=== PATIENT | male | born 1940 | race Caucasian/White ===

== ENCOUNTER → 2017-03-07 | Outpatient (CLI) | payer OTHER, MEDICARE ==
[~2017-03-07] MED LIST: ASPEC81 PO; ATOR10TA82 PO; CLL250 PO; METO25TA3 PO; MULT-506 PO; OMEG10007 PO; SERT-234 PO; SULF800T23 PO; TACR1CAP PO; TELM40TA11 PO
[2017-03-07 13:26] LABS: BASO % 0.4 %; BASO ABS # 0.03 K/uL (0-0.2); EOS % 1.9 %; EOS ABS # 0.15 K/uL (0-0.5); HEMATOCRIT 46.1 % (42-52); HEMOGLOBIN 16.1 g/dL (14.0-18.0); IG# 0.02 K/uL (0.00-0.02); LYMPH ABS # 1.55 K/uL (1.2-3.4); MEAN CELL VOLUME 89.7 fL (80-100); MEAN CORPUSCULAR HEMOGLOBIN 31.3 pg (25-34); MEAN CORPUSCULAR HGB CONC 34.9 g/dl (32-36); MEAN PLATELET VOLUME 8.9 fL (7.4-10.4); MONO % 7.6 %; MONO ABS # 0.59 K/uL (0.11-0.59); NEUT % 69.8 %; NEUT ABS # 5.42 K/uL (1.4-6.5); PLATELET COUNT 163 K/uL (130-400); RED CELL DISTRIBUTION WIDTH CV 12.3 % (11.5-14.5); RED CELL DISTRIBUTION WIDTH SD 40.1 fL (36.4-46.3); WHITE BLOOD COUNT 7.76 K/uL (4.8-10.8)
[2017-03-07 13:34] LABS: HEMOGLOBIN A1C 5.7 % (4.5-5.6)
[2017-03-07 16:28] LABS: ALT/SGPT 20 U/L (12-78); AST/SGOT 14 U/L (15-37); BLOOD UREA NITROGEN 25 mg/dl (7-18); CALCIUM 9.1 mg/dl (8.5-10.1); CARBON DIOXIDE 30 mmol/L (21-32); CREATININE 1.28 mg/dl (0.60-1.40); GLUCOSE 119 mg/dl (70-99); POTASSIUM 3.8 mmol/L (3.5-5.1); SODIUM 137 mmol/L (136-145); URIC ACID 6.9 mg/dl (2.6-7.2)
[2017-03-07 16:39] LABS: CHOLESTEROL 107 mg/dl (0-200); LDL CHOLESTEROL CALCULATED 56 mg/dl
== END | disposition home or self-care (01) ==
LOC: C.LAB1850 11:45
PROVIDERS: ATTEND Internal Medicine
DX: E78.00 Pure hypercholesterolemia, unspecified (principal)

== ENCOUNTER → 2017-06-12 | Outpatient (CLI) | payer OTHER, MEDICARE ==
[2017-06-12 12:22] LABS: BASO % 0.5 %; BASO ABS # 0.03 K/uL (0-0.2); EOS % 2.7 %; EOS ABS # 0.17 K/uL (0-0.5); HEMOGLOBIN 16.5 g/dL (14.0-18.0); IG# 0.01 K/uL (0.00-0.02); LYMPH % 26.7 %; MEAN CELL VOLUME 87.8 fL (80-100); MEAN CORPUSCULAR HEMOGLOBIN 31.5 pg (25-34); MEAN CORPUSCULAR HGB CONC 35.9 g/dl (32-36); MEAN PLATELET VOLUME 8.5 fL (7.4-10.4); MONO % 8.5 %; MONO ABS # 0.54 K/uL (0.11-0.59); NEUT % 61.4 %; NEUT ABS # 3.91 K/uL (1.4-6.5); PLATELET COUNT 111 K/uL (130-400); RED CELL DISTRIBUTION WIDTH CV 12.5 % (11.5-14.5); RED CELL DISTRIBUTION WIDTH SD 40.3 fL (36.4-46.3); WHITE BLOOD COUNT 6.36 K/uL (4.8-10.8)
[2017-06-12 12:40] LABS: BLOOD UREA NITROGEN 18 mg/dl (7-18); CALCIUM 8.8 mg/dl (8.5-10.1); CARBON DIOXIDE 27 mmol/L (21-32); CREATININE 1.18 mg/dl (0.60-1.40); GLUCOSE 115 mg/dl (70-99); POTASSIUM 3.9 mmol/L (3.5-5.1); SODIUM 139 mmol/L (136-145)
[2017-06-14 11:40] LABS: FK506 TACROLIMUS HIGHLY SENS 7.3 MCG/L (5-20)
== END | disposition home or self-care (01) ==
LOC: C.LAB1850 11:02
PROVIDERS: ATTEND Internal Medicine
DX: Z94.0 Kidney transplant status (principal)

== ENCOUNTER → 2017-10-06 | Outpatient (CLI) | payer OTHER, MEDICARE ==
[2017-10-06 12:17] LABS: BASO % 0.6 %; BASO ABS # 0.04 K/uL (0-0.2); EOS % 3.4 %; EOS ABS # 0.22 K/uL (0-0.5); HEMATOCRIT 45.2 % (42-52); HEMOGLOBIN 15.7 g/dL (14.0-18.0); IG# 0.01 K/uL (0.00-0.02); LYMPH % 30.7 %; LYMPH ABS # 1.98 K/uL (1.2-3.4); MEAN CORPUSCULAR HEMOGLOBIN 30.9 pg (25-34); MEAN CORPUSCULAR HGB CONC 34.7 g/dl (32-36); MEAN PLATELET VOLUME 9.1 fL (7.4-10.4); MONO ABS # 0.45 K/uL (0.11-0.59); NEUT % 58.1 %; NEUT ABS # 3.74 K/uL (1.4-6.5); PLATELET COUNT 121 K/uL (130-400); RED CELL DISTRIBUTION WIDTH CV 12.5 % (11.5-14.5); RED CELL DISTRIBUTION WIDTH SD 40.4 fL (36.4-46.3); WHITE BLOOD COUNT 6.44 K/uL (4.8-10.8)
[2017-10-06 12:40] LABS: ALT/SGPT 20 U/L (12-78); AST/SGOT 17 U/L (15-37); BLOOD UREA NITROGEN 22 mg/dl (7-18); CALCIUM 8.5 mg/dl (8.5-10.1); CARBON DIOXIDE 26 mmol/L (21-32); CHOLESTEROL 105 mg/dl (0-200); CREATININE 1.21 mg/dl (0.60-1.40); GLUCOSE 116 mg/dl (70-99); LDL CHOLESTEROL CALCULATED 54 mg/dl; SODIUM 140 mmol/L (136-145); URIC ACID 7.5 mg/dl (2.6-7.2)
[2017-10-06 12:45] LABS: HEMOGLOBIN A1C 5.6 % (4.5-5.6)
[2017-10-11 08:15] LABS: FK506 TACROLIMUS HIGHLY SENS 8.5 MCG/L (5-20)
== END | disposition home or self-care (01) ==
LOC: C.LAB1850 10:01
PROVIDERS: ATTEND Internal Medicine
DX: E78.00 Pure hypercholesterolemia, unspecified (principal)

== ENCOUNTER 2022-04-18 15:06 | Inpatient (IN) ==
--- NOTE | 2022-04-18 15:22 | Emergency Department Note ---
Impression & Plan TUNG (acute kidney injury), Cognitive decline, History of renal transplant ED Provider Note NAME: TRESSA RODRIGUEZ AGE: 81 SEX: M : 1940 ARRIVES VIA: Ambulance INFORMANT: Patient, ED PROVIDER(S): Davin Cerna MD CHIEF COMPLAINT: Confusion MEDICAL DECISION MAKING: Patient was seen due to concern for worsening confusion. the patient has not taken his medications the last several days. Blood work was obtained and IV was established. The patient was ordered his home chlorthalidone and metoprolol. Patient has mild leukopenia with mild anemia hemoglobin of 13. Mild thrombocytopenia at 122. Kidney function does s how worsening from comparison creatinine from November but today shows 2.[address] is unremarkable. Urinalysis does not show obvious infection. Tacro level was also sent. COVID-negative. CT of the head is negative. Chest x-ray is clear with cardiomegaly but no active disease in the chest. Given the patient's TUNG with known history of transplant worsening cognitive status and hypertension do believe the patient would benefit from treatments and admission. I did speak the on-call hospitalist Dr. Hernandez the patient was admitted to the medicine service. Prior /Outside records reviewed: Did review the patient's primary care note from today which noted some confusion. I did review the patient's prior outpatient note from Lydia Schneider her patient does have a known history of kidney transplant and has mild cognitive impairment and history of DUSTY. 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 Diagnostics, as interpreted by me: ECG: Normal sinus rhythm, rate of 100s, borderline prolonged UT, normal QRS left axis deviation no ST elevations or T WI Cardiac monitoring: An order was placed for continuous cardiac monitoring. The monitor shows a rate of 95 with sinus rhythm. Patient was placed on pulse oximetry Medical decision rules: None Imaging studies: See below HPI: Patient presents due to concern for worsening confusion was seen in the outpatient setting today and referred here for further evaluation and treatment. The patient is accompanied by his son. The patient does note that he has had some worsening memory issues. The patient has not had a fall in approximate 3 years. The patient does not take any blood thinning medications. Patient has a known history of renal transplant and is on tacrolimus. The patient has not followed in some time with the transplant service but likely does follow with Dr. Yuan with nephrology. Patient states that his sleep and appetite have been okay that he has been eating and drinking well. The patient does live by himse lf. The patient's son has noticed progressively worsening cognitive decline. Patient denies any vomiting or diarrhea has no head or neck pain. No numbness tingling focal weakness slurred speech or facial droop no prior history of stroke or mini stroke PAST MEDICAL HISTORY: See Below PAST SURGICAL HISTORY: See Below SOCIAL HISTORY: See Below HOME MEDICATIONS: See Below ALLERGIES: See Below VITALS: See Below PHYSICAL EXAMINATION: GENERAL: NAD, wearing a mask, non-toxic. Wearing glasses. EYE EXAM: Normal conjunctiva. PERRL, no anisocoria and EOM's grossly intact w/o pain. NECK: Supple, no nuchal rigidity, no adenopathy, non-tender. No signs of meningismus. FROM of the neck with good chin to chest and neck extension. No stridor. LUNGS: Clear to auscultation. Normal chest wall mechanics. HEART: NSR, no MRG. ABDOMEN: Abdomen soft, non-tender, normo-active bowel sounds, no masses, no rebound or guarding. BACK: No CVA TTP. SKIN: No rashes and no bruising. UPPER EXTREMITIES: Upper extremities are grossly normal. Palpable thrill left upper extremity AV fistula LOWER EXTREMITIES: Grossly normal, no edema. NEURO EXAM: Awake and alert follows basic commands oriented to person and people in the room, not oriented to month of the year able to do addition and multiplication but was unable to answer subtraction question, cranial nerves II- XII grossly intact, normal speech, moves all 4 extremities. Past Med/Surg History Medical History 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 Polycystic kidney Prediabetes Primary hypertension Unintentional weight loss Surgical History H/O right inguinal hernia repair H/O transurethral resection of prostate History of cataract surgery RT/LEFT History of colonoscopy S/P kidney transplant 2006 at [facility] r/t polycystic kidney Status post Mohs surgery Family History Grandfather (Maternal) Cardiac disorder Grandmother (Paternal) Cardiac disorder Grandfather (Paternal) Cardiac disorder Mother Cardiac disorder Hypertension Grandmother (Maternal) Diabetes Brother Hypertension Sister Renal transplant, status post Hypertension Other No family history of adverse response to anesthesia Social History Smoking Status: Former smoker Tobacco Type: Cigarettes Second Hand Exposure: No; Hx Alcohol Use: Yes Alcohol type: beer Hx Substance Use: No Preferred Language: German Communication Ability: Effective Visual Impairment: No Limitations Hearing Ability: Normal 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 Required: No Beliefs That Will Affect Care: None marital status: Current Living Situation: Spouse current occupational status: retired How many Children do You have: 2 Feels Safe at Home: Yes during the past year weight has: decreased > 10 lbs Dental Care, Regularly: No Seatbelt Use: always Sunscreen Use: Yes Assistive Devices: Denture - Upper, Denture - Lower and Glasses Allergies Allergies Allergy/AdvReac Type Severity Reaction Status Date / Time lisinopril AdvReac Intermediate Cough Verified 04/18/22 17:19 Home Meds Home Medications Medication Instructions Recorded Confirmed magnesium oxide 400 mg PO QPM 10/04/18 04/18/22 multivitamin (Daily Multi-Vitamin 1 tab PO QPM 10/04/18 04/18/22 tablet) cholecalciferol (vitamin D3) 10 400 units PO QAM 12/21/18 04/18/22 mcg (400 unit) capsule atorvastatin 10 mg tablet 10 mg PO QPM 06/23/21 04/18/22 losartan 100 mg tablet 100 mg PO QPM 06/23/21 04/18/22 metoprolol succinate 25 mg 25 mg PO QPM 06/23/21 04/18/22 tablet,extended release 24 hr aspirin 81 mg tablet,delayed 81 mg PO DAILY 04/18/22 04/18/22 release calcium carbonate 200 mg calcium 400 mg PO BID 04/18/22 04/18/22 (500 mg) chewable tablet (Tums) omega-3 fatty acids 1,000 mg 1,000 mg PO DAILY 04/18/22 04/18/22 capsule tacrolimus 1 mg capsule, 1 mg PO BID Z94.0 04/18/22 04/18/22 immediate-release Previous Rx's Medication Instructions Recorded chlorthalidone 25 mg tablet 25 mg PO DAILY #90 tabs 08/10/21 mycophenolate mofetil 250 mg 250 mg PO BID #180 ea 01/18/22 capsule Results & Data (ED) Vital Signs Vital Signs - 24 hr 04/18/22 15:24 04/18/22 15:36 04/18/22 15:49 Temperature 36.2 C L Temperature Source Oral Pulse Rate 100 H 102 H Respiratory Rate 16 Respiratory Effort / Characteristics Non-Labored Respiratory Depth Normal Respiratory Pattern Regular Blood Pressure 202/101 H Blood Pressure Mean 134 Blood Pressure Position Semi-fowlers Pulse Oximetry 100 99 Oxygen Delivery Method Room Air Room Air Sepsis Recent Fever Within 48 Hours No Sepsis New/Unexplained Change in Mental Status N/A Sepsis Action Taken by Nursing No Action Required Home Medications Current Medication List: was personally reviewed by me Laboratory Data Attestation: I reviewed the patient's lab results. 04/18/22 15:30 04/18/22 15:30 Lab Results 04/18/22 04/18/22 04/18/22 Range/Units 15:30 15:30 15:30 WBC 4.18 L (4.8-10.8) K/ul RBC 4.32 L (4.70-6.10) M/uL Hgb 13.0 L (14.0-18.0) g/dl Hct 37.3 L (42.0-52.0) % MCV 86.3 (80.0-100.0) fL MCH 30.1 (25.0-34.0) pg MCHC 34.9 (32.0-36.0) g/dL RDW Std Deviation 43.1 (36.4-46.3) fL RDW Coeff of Reema 13.9 (11.5-14.5) % Plt Count 122 L (130-400) K/uL MPV 9.0 L (9.4-12.4) fL Immature Gran % (Auto) 0.2 % Neut % (Auto) 62.9 % Lymph % (Auto) 26.1 % Orange % (Auto) 7.4 % Eos % (Auto) 2.4 % Baso % (Auto) 1.0 % Neut # (Auto) 2.63 (1.40-6.50) K/uL Lymph # (Auto) 1.09 L (1.2-3.4) K/uL Orange # (Auto) 0.31 (0.11-0.59) K/uL Eos # (Auto) 0.10 (0-0.50) K/uL Baso # (Auto) 0.04 (0-0.2) K/uL Immature Gran # (Auto) 0.01 (0.01-0.20) K/uL Sodium 140 (136-145) mmol/L Potassium 4.3 (3.5-5.1) mmol/L Chloride 106 (98-107) mmol/L Carbon Dioxide 29 (21-32) mmol/L Anion Gap 5 (3-11) BUN 25 H (6-23) mg/dl Creatinine 2.20 H (0.6-1.4) mg/dl Est Cr Clr Drug Dosing 30.8 ml/min Est GFR ( Amer) 31.8 ml/min Est GFR (Non-Af Amer) 27.5 ml/min BUN/Creatinine Ratio 11.4 (10-20) Glucose 110 H (70-99(Fasting)) mg/dl Calcium 10.1 (8.5-10.1) mg/dl Total Bilirubin 1.0 (0.2-1.0) mg/dl AST 13 (13-39) U/L ALT 5 L (7-52) U/L Alkaline Phosphatase 46 (34-104) U/L Total Protein 8.0 (6.0-8.3) gm/dl Albumin 4.2 (3.4-5.0) gm/dl Globulin 3.8 (2.5-4.0) gm/dl Albumin/Globulin Ratio 1.1 (0.9-2) TSH 0.948 (0.300-4.500) uIu/ml Urine Color Urine Appearance (Clear) Urine pH (4.5-7.5) Ur Specific [place] (1.000-1.030) Urine Protein (Negative) Urine Glucose (UA) (Negative) Urine Ketones (Negative) Urine Blood (Negative) Urine Nitrite (Negative) Urine Bilirubin (Negative) Urine Urobilinogen (Negative) Ur Leukocyte Esterase (Negative) Urine WBC (Auto) (0-5) /hpf Urine RBC (Auto) (0-4) /hpf U Hyaline Cast (Auto) (0-5) /lpf U Epithel Cells (Auto) (0-5) /lpf Urine Bacteria (Auto) (Negative) Ur Renal Epithelial Cell SARS-CoV-2, RNA, NAAT (NEGATIVE) 04/18/22 04/18/22 Range/Units 15:30 16:14 WBC (4.8-10.8) K/ul RBC (4.70-6.10) M/uL Hgb (14.0-18.0) g/dl Hct (42.0-52.0) % MCV (80.0-100.0) fL MCH (25.0-34.0) pg MCHC (32.0-36.0) g/dL RDW Std Deviation (36.4-46.3) fL RDW Coeff of Reema (11.5-14.5) % Plt Count (130-400) K/uL MPV (9.4-12.4) fL Immature Gran % (Auto) % Neut % (Auto) % Lymph % (Auto) % Orange % (Auto) % Eos % (Auto) % Baso % (Auto) % Neut # (Auto) (1.40-6.50) K/uL Lymph # (Auto) (1.2-3.4) K/uL Orange # (Auto) (0.11-0.59) K/uL Eos # (Auto) (0-0.50) K/uL Baso # (Auto) (0-0.2) K/uL Immature Gran # (Auto) (0.01-0.20) K/uL Sodium (136-145) mmol/L Potassium (3.5-5.1) mmol/L Chloride (98-107) mmol/L Carbon Dioxide (21-32) mmol/L Anion Gap (3-11) BUN (6-23) mg/dl Creatinine (0.6-1.4) mg/dl Est Cr Clr Drug Dosing ml/min Est GFR ( Amer) ml/min Est GFR (Non-Af Amer) ml/min BUN/Creatinine Ratio (10-20) Glucose (70-99(Fasting)) mg/dl Calcium (8.5-10.1) mg/dl Total Bilirubin (0.2-1.0) mg/dl AST (13-39) U/L ALT (7-52) U/L Alkaline Phosphatase (34-104) U/L Total Protein (6.0-8.3) gm/dl Albumin (3.4-5.0) gm/dl Globulin (2.5-4.0) gm/dl Albumin/Globulin Ratio (0.9-2) TSH (0.300-4.500) uIu/ml Urine Color Dark Yellow Urine Appearance Clear (Clear) Urine pH 6.0 (4.5-7.5) Ur Specific [place] 1.017 (1.000-1.030) Urine Protein Trace H (Negative) Urine Glucose (UA) Negative (Negative) Urine Ketones Negative (Negative) Urine Blood Negative (Negative) Urine Nitrite Negative (Negative) Urine Bilirubin Negative (Negative) Urine Urobilinogen Negative (Negative) Ur Leukocyte Esterase Negative (Negative) Urine WBC (Auto) 10-30 H (0-5) /hpf Urine RBC (Auto) 0-4 (0-4) /hpf U Hyaline Cast (Auto) 10-30 H (0-5) /lpf U Epithel Cells (Auto) >30 H (0-5) /lpf Urine Bacteria (Auto) Negative (Negative) Ur Renal Epithelial Cell Not Reportable SARS-CoV-2, RNA, NAAT NEGATIVE (NEGATIVE) Administered Medications Chlorthalidone (Ch[facility]orthalidone 25 Mg Tab) [facility] Stop: 05/18/22 15:59 Last Admin: 04/18/22 16:56 Dose: 25 mg Documented By: CHAGO Metoprolol Succinate (Metoprolol Succ 25mg Ext Rel Tab) 25 mg PO QAM [facility] Stop: 05/18/22 15:59 Last Admin: 04/18/22 16:56 Dose: 25 mg Documented By: [facility] Imaging Data Radiologist's Impression: Head CT 04/18/22 15:[address] DOSE: 788.63 mGycm HISTORY: worsening cognitive impairment/memory loss TECHNIQUE: Multiaxial CT images of the head were performed without the use of intravenous contrast. Automated exposure control was utilized for this study. A dose lowering technique was utilized adhering to the principles of ALARA. Comparison: Brain MRI 10/18/2013. Findings: Mild mucosal thickening within the right ethmoid air cells. Trace right mastoid effusion is noted. The left mastoid air cells are clear. The calvarium and skull base are intact. There is no mass, hematoma, midline shift, acute infarct. White matter hypodensity is nonspecific but suggestive of microvascular ischemic change. The ventricles and sulci demonstrate mild age- related involutional changes. Bilateral basal ganglia calcifications are noted. Impression: No acute intracranial abnormality. ACT 112: Negative or not required by law. Electronically signed by: Constantin Reeves M.D. 04/18/2022 4:36 PM Chest X-Ray 04/18/22 15:49 SINGLE VIEW CHEST CLINICAL HISTORY: Generalized weakness. FINDINGS: An AP, portable, upright chest radiograph is compared to study dated 12/14/2021. The examination is degraded by portable technique and patient rotation. The heart is enlarged. The pulmonary vasculature is noncongested. The lungs and pleural spaces are clear noting bibasilar scarring/atelectasis. No pneumothorax is seen. The skeletal structures are osteopenic. The bony thorax is grossly intact. IMPRESSION: Cardiomegaly with no active disease in the chest. ACT 112: Negative or not required by law. Electronically signed by: Dallas Ann M.D. 04/18/2022 5:44 PM Discharge Plan Visit Data Chief Complaint: Illness ED Provider: Davin Cerna Discharge Problem: TUNG (acute kidney injury), Cognitive decline, History of renal transplant Patient Disposition: Admitted As Inpatient
[2022-04-18 16:29] LABS: Basophils # (auto) 0.04 K/uL (0-0.2); Eosinophils % (auto) 2.4 %; Hematocrit (blood only) 37.3 % (42.0-52.0); Immature Granulocytes # (auto) 0.01 K/uL (0.01-0.20); Immature Granulocytes % (auto) 0.2 %; Lymphocytes # (auto) 1.09 K/uL (1.2-3.4); Lymphocytes % (auto) 26.1 %; Mean Corpuscular Hemoglobin 30.1 pg (25.0-34.0); Mean Corpuscular Hgb Conc 34.9 g/dL (32.0-36.0); Mean Corpuscular Volume 86.3 fL (80.0-100.0); Monocytes # (auto) 0.31 K/uL (0.11-0.59); Monocytes % (auto) 7.4 %; Neutrophils # (auto) 2.63 K/uL (1.40-6.50); Neutrophils % (auto) 62.9 %; Platelet Count 122 K/uL (130-400); RDW Coefficient of Variation 13.9 % (11.5-14.5); RDW Standard Deviation 43.1 fL (36.4-46.3); Red Blood Count 4.32 M/uL (4.70-6.10); White Blood Count 4.18 K/ul (4.8-10.8)
--- NOTE | 2022-04-18 16:38 | CT Scan Report ---
HEAD CT NONCONTRAST CT DOSE: 788.63 mGycm HISTORY: worsening cognitive impairment/memory loss TECHNIQUE: Multiaxial CT images of the head were performed without the use of intravenous contrast. A utomated exposure control was utilized for this study. A dose lowering technique was utilized adheri ng to the principles of ALARA. Comparison: Brain MRI 10/18/2013. Findings: Mild mucosal thickening within the right ethmoid air cells. Trace right mastoid effusion is noted. The left mastoid air cells are clear. The calvarium and skull base are intact. There is no ma ss, hematoma, midline shift, acute infarct. White matter hypodensity is nonspecific but suggestive of microvascular ischemic change. The ventricles and sulci demonstrate mild age-related involutional ch anges. Bilateral basal ganglia calcifications are noted. Impression: No acute intracranial abnormality. ACT 112: Negative or not required by law. Electronically signed by: Constantin Reeves M.D. 04/18/2022 4:36 PM
[2022-04-18 16:44] LABS: Albumin Globulin Ratio 1.1 (0.9-2); Albumin Level 4.2 gm/dl (3.4-5.0); BUN Creatinine Ratio 11.4 (10-20); Calcium 10.1 mg/dl (8.5-10.1); Creatinine Clr Calc Pharmacy 30.8 ml/min; Est GFR (African American) 31.8 ml/min; Est GFR (Non-African American) 27.5 ml/min; Globulin 3.8 gm/dl (2.5-4.0); Potassium 4.3 mmol/L (3.5-5.1)
[2022-04-18 16:53] LABS: Appearance Urine Clear (Clear); Bacteria Urine Automated Negative (Negative); Bilirubin Urine Negative (Negative); Blood Urine Negative (Negative); Color Urine Dark Yellow; Epithelial Cell Urine Auto >30 /lpf (0-5); Glucose Urine UA Negative (Negative); Ketones Urine Negative (Negative); Leukocyte Esterase Urine Negative (Negative); Nitrite Urine Negative (Negative); Protein Urine Trace (Negative); RBC Urine Automated 0-4 /hpf (0-4); Specific Gravity Urine 1.017 (1.000-1.030); Urobilinogen Urine Negative (Negative)
[2022-04-18] MEDS: CHLORTHALIDONE 25 MG TAB PO SCH (16:56)
[2022-04-18] MEDS: METOPROLOL SUCC 25MG EXT REL TAB PO SCH ×2 (16:56→20:56)
--- NOTE | 2022-04-18 17:45 | XRay Report ---
SINGLE VIEW CHEST CLINICAL HISTORY: Generalized weakness. FINDINGS: An AP, portable, upright chest radiograph is compared to study dated 12/14/2021. The examin ation is degraded by portable technique and patient rotation. The heart is enlarged. The pulmonary v asculature is noncongested. The lungs and pleural spaces are clear noting bibasilar scarring/atelecta sis. No pneumothorax is seen. The skeletal structures are osteopenic. The bony thorax is grossly inta ct. IMPRESSION: Cardiomegaly with no active disease in the chest. ACT 112: Negative or not required by law. Electronically signed by: Dallas Ann M.D. 04/18/2022 5:44 PM
--- NOTE | 2022-04-18 18:09 | History & Physical Report ---
Date of Service April 18, 2022 Assessment & Plan (1) Hypertensive crisis: Plan: HTN Urgency/emergency, given BP 202/101 and TUNG Has received his home meds of Chlorthalidone, and metoprolol, will hold Losartan Will recheck BP Add IV Hydralazine PRN (2) Altered mental status: Plan: He has a history of mild cognitive decline, iris vascular Had a full neuro assessmenet in 2019 However, according to son, has been declining more in the past 6 weeks Will obtain folate and Vit b12 levels CT head did not show any acute pathology Will obtain MRI brain (3) Kidney replaced by transplant: Plan: Initially on HD but now is a receipeint of renal transplant On Tacrolimus, with adequate levels (4) Mild cognitive impairment: Plan: see 2 above Plan Patient will iris need placement on account of worsening decline History of Present Illness Chief Complaint: AMS Primary Care Provider: Lydia Dobbs MD This is a 81 yo M with a history of HTN, Depression, Mild cognitive impairment, ESRD s/p Renal Transplant who was sent to the hospital by his PCP on account of worsening cognitive decline, word finding difficulty. According to reports, patient presented to the clinic today without an appointment and was having difficulties remebering things. The FIRE POT OPERATOR deemed him unsafe driving home by himself and instead sent him to the hospital for further evaluation. According to the son, from whom most of the history was obtained, patient has been having some cognitive decline over the past year, however, it got worse within the past 6 weeks. He lives by himself and they are concerned he may not be safe living by himself. He has a history of ESRD, initially was on HD, but is now s/p Renal transplant, patient says he has been compliant with his meds. Here in the ED, BP was 202/101, CT head did not show any acute pathology. He iwll be admitted to the [facility] for further investigation Allergies Allergy/AdvReac Type Severity Reaction Status Date / Time lisinopril AdvReac Intermediate Cough Verified 04/18/22 17:19 Home Medications Medication Instructions Recorded Confirmed Type magnesium oxide 400 mg PO QPM 10/04/18 04/18/22 History multivitamin (Daily Multi-Vitamin 1 tab PO QPM 10/04/18 04/18/22 History tablet) cholecalciferol (vitamin D3) 10 400 units PO QAM 12/21/18 04/18/22 History mcg (400 unit) capsule atorvastatin 10 mg tablet 10 mg PO QPM 06/23/21 04/18/22 History losartan 100 mg tablet 100 mg PO QPM 06/23/21 04/18/22 History metoprolol succinate 25 mg 25 mg PO QPM 06/23/21 04/18/22 History tablet,extended release 24 hr chlorthalidone 25 mg tablet 25 mg PO DAILY #90 tabs 08/10/21 04/18/22 Rx mycophenolate mofetil 250 mg 250 mg PO BID #180 ea 01/18/22 04/18/22 Rx capsule aspirin 81 mg tablet,delayed 81 mg PO DAILY 04/18/22 04/18/22 History release calcium carbonate 200 mg calcium 400 mg PO BID 04/18/22 04/18/22 History (500 mg) chewable tablet (Tums) omega-3 fatty acids 1,000 mg 1,000 mg PO DAILY 04/18/22 04/18/22 History capsule tacrolimus 1 mg capsule, 1 mg PO BID Z94.0 04/18/22 04/18/22 History immediate-release Past Med/Surg History Medical History AV fistula 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 Polycystic kidney Prediabetes Primary hypertension Unintentional weight loss Surgical History H/O right inguinal hernia repair H/O transurethral resection of prostate History of cataract surgery RT/LEFT History of colonoscopy S/P kidney transplant 2005 at [facility] r/t polycystic kidney Status post Mohs surgery Family History Grandfather (Maternal) Cardiac disorder Grandmother (Paternal) Cardiac disorder Grandfather (Paternal) Cardiac disorder Mother Cardiac disorder Hypertension Grandmother (Maternal) Diabetes Brother Hypertension Sister Renal transplant, status post Hypertension Other No family history of adverse response to anesthesia Social History Smoking Status: Former smoker Tobacco Type: Cigarettes Second Hand Exposure: No; Hx Alcohol Use: Yes Alcohol type: beer Hx Substance Use: No Preferred Language: Kyrgyz Communication Ability: Effective Visual Impairment: No Limitations Hearing Ability: Normal Project Management Instructor Required: No Beliefs That Will Affect Care: None marital status: Current Living Situation: Spouse current occupational status: retired How many Children do You have: 2 Feels Safe at Home: Yes during the past year weight has: decreased > 10 lbs Dental Care, Regularly: No Seatbelt Use: always Sunscreen Use: Yes Assistive Devices: Denture - Upper, Denture - Lower and Glasses Review of Systems Review of Systems: All systems reviewed are negative, apart from the ones contained in the history. Physical Exam Physical Exam: The patient is awake, alert and oriented 3, well developed and well nourished, normocephalic and atraumatic, lying in bed and in no acute distress. HEENT--PERRL, EOMI, mucous membranes and oropharynx mildly dry Neck--supple. No JVD. No bruits. Thyroid normal, trachea midline, no adenopathy. Heart--normal S1 and S2. No murmurs, rubs or gallops. Lungs--clear bilaterally, no respiratory distress, no accessory muscle use. Abdomen--normal bowel sounds and soft. Mild epigastric and left sided abdominal pain Extremities--no cyanosis or clubbing. No edema. Dermatologic--normal skin turgor, normal color, no abnormal lymph nodes, no rash. Neurologic--cranial nerves II through XII grossly intact. Rheumatologic--normal range of motion. Psychiatric--normal affect. Results & Data Results & Data ([facility]) Vital Signs (Past 12 Hours) Vital Signs Temp Pulse Resp BP Pulse Ox O2 Del Method 04/18/22 15:49 99 Room Air 04/18/22 15:36 97.2 F L 102 H 16 202/101 H 100 Room Air 04/18/22 15:24 100 H PG Care Time/CCT Total # of Minutes Spent Total Time Spent with Patient: Total time spent is greater than 50% in coordination of care (as documented) at patient's floor/unit and/or counseling patient: Coding Level of Care Code 29035 INT INP/OBS CARE 3/75MIN Diagnoses Hypertensive crisis I16.9 Altered mental status R41.82 Kidney replaced by transplant Z94.0 Mild cognitive impairment G31.84 Time Spent (min) 75
[2022-04-18] MEDS ORDERED: hydrALAZINE HCL 20 MG/ML VIAL IV PRN (19:54)
[2022-04-18] MEDS ORDERED: ACETAMINOPHEN 325 MG TAB PO PRN (19:54)
[2022-04-18] MEDS ORDERED: ONDANSETRON INJ 2 MG/ML 2 ML VIAL IV PRN (19:54)
[2022-04-18] MEDS: TACROLIMUS 1 MG CAP PO SCH (20:55)
[2022-04-18] MEDS: ATORVASTATIN 10 MG TAB PO SCH (20:55)
[2022-04-18] MEDS: CALCIUM CARBONATE 500 MG CHEWABLE TAB PO SCH (20:55)
[2022-04-18] MEDS: MYCOPHENOLATE MOFETIL 250 MG CAP PO SCH (20:55)
[2022-04-18] MEDS: MULTIVITAMIN TAB PO SCH (20:55)
[2022-04-18] MEDS: MAGNESIUM OXIDE 400 MG TAB PO SCH (20:56)
[2022-04-18] MEDS ORDERED: CALCIUM CARBONATE 500 MG CHEWABLE TAB PO SCH (21:00)
[2022-04-19 07:43] LABS: Hematocrit (blood only) 32.5 % (42.0-52.0); Hemoglobin 11.4 g/dl (14.0-18.0); Mean Corpuscular Hemoglobin 30.2 pg (25.0-34.0); Mean Corpuscular Hgb Conc 35.1 g/dL (32.0-36.0); Mean Corpuscular Volume 86.2 fL (80.0-100.0); Mean Platelet Volume 8.7 fL (9.4-12.4); Platelet Count 102 K/uL (130-400); RDW Coefficient of Variation 13.7 % (11.5-14.5); Red Blood Count 3.77 M/uL (4.70-6.10); White Blood Count 3.89 K/ul (4.8-10.8)
[2022-04-19 08:02] LABS: BUN Creatinine Ratio 12.7 (10-20); Calcium 9.6 mg/dl (8.5-10.1); Creatinine Clr Calc Pharmacy 31.7 ml/min; Est GFR (African American) 34.9 ml/min; Est GFR (Non-African American) 30.1 ml/min; Potassium 3.9 mmol/L (3.5-5.1)
[2022-04-19] MEDS: CHLORTHALIDONE 25 MG TAB PO SCH (08:30)
[2022-04-19] MEDS: TACROLIMUS 1 MG CAP PO SCH ×2 (08:31→20:12)
[2022-04-19] MEDS: MYCOPHENOLATE MOFETIL 250 MG CAP PO SCH ×2 (08:31→20:13)
[2022-04-19] MEDS: OMEGA-3 (PURIFIED FISH OIL) 1 GM CAP PO SCH (08:31)
[2022-04-19] MEDS: CHOLECALCIFEROL 400 UNITS 10 MCG TAB PO SCH (08:31)
[2022-04-19] MEDS: ASPIRIN 81 MG ECTAB PO SCH (08:32)
[2022-04-19] MEDS: METOPROLOL SUCC 25MG EXT REL TAB PO SCH ×2 (08:32→20:13)
[2022-04-19] MEDS: CALCIUM CARBONATE 500 MG CHEWABLE TAB PO SCH ×2 (08:35→20:14)
--- NOTE | 2022-04-19 09:45 | Magnetic Resonance Report ---
MRI OF THE BRAIN WITHOUT CONTRAST CLINICAL HISTORY: Altered mental status. Evaluate for acute infarct. COMPARISON STUDY: Head CT April 18, 2022. TECHNIQUE: Utilizing a 1.5 Yasemin magnet and dedicated coil, multiplanar, multiecho imaging of the bra in was performed without IV contrast. FINDINGS: There are no foci of restricted diffusion to suggest acute infarct. No acute intracranial h emorrhage, midline shift or mass effect is present. Basal cisterns are patent. There are no extra-axi al collections. Flow-voids for the major intracranial vessels are present. No intracranial masses are identified on this unenhanced exam. Moderate atrophy is noted. Hypointensity within the bilateral ba noé ganglia is due to calcification shown on CT. White matter T2 hyperintense foci suggest moderate s mall vessel disease. Calvarial signal is normal. There is no evidence for sinusitis. Small to moderat e fluid within the bilateral mastoid air cells is noted. IMPRESSION: 1. No acute intracranial findings. 2. Moderate atrophy and small vessel disease. ACT 112: Negative or not required by law. Electronically signed by: Matias Patten M.D. 04/19/2022 9:43 AM
--- NOTE | 2022-04-19 10:23 | Neurology Consultation ---
Date of Consultation April 19, 2022 Assessment & Plan (1) Cognitive decline: Plan NEUROLOGY CONSULTATION Assessment & Plan: Impression: pt with MCI and it is chronic in nature and he appears to be back to his baseline. Pt is followed by neurology clinic for this and has pending appt in the near future. His HTN urgency likely making his cognition worse also. he also has DUSTY and not on CPAP machine due to unable to tolerate the machine and his sleep disorder also contributes to his cognition. Recommendations: -at this point, pt is hesitant to start any med. his neurologist has plan to start med in the future so i would defer that to his primary neurologist at this point. not much to add from neurology at this point. continue tx for his HTN and supportive care. pt to follow up with his neurologist as planned. Dr. Marco Schwarz MD [facility] Neurology Chief Complaint: cognitive issue History of Present Illness: pt with known MCI and followed by neurology clinic. pt admitted for HTN urgency. pt has ESRD with s/p renal transplant. this morning pt is back to his baseline and talking well and appears to be fully oriented except some difficulty with month but able to tell me the month. CT head negative. Admission/Initial HPI documentation: This is a 81 yo M with a history of HTN, Depression, Mild cognitive impairment, ESRD s/p Renal Transplant who was sent to the hospital by his PCP on account of worsening cognitive decline, word finding difficulty. According to reports, patient presented to the clinic today without an appointment and was having difficulties remebering things. The LOCOMOTIVE BOILERMAKER deemed him unsafe driving home by himself and instead sent him to the hospital for further evaluation. According to the son, from whom most of the history was obtained, patient has been having some cognitive decline over the past year, however, it got worse within the past 6 weeks. He lives by himself and they are concerned he may not be safe living by himself. He has a history of ESRD, initially was on HD, but is now s/p Renal transplant, patient says he has been compliant with his meds. Here in the ED, BP was 202/101, CT head did not show any acute pathology. He iwll be admitted to the [facility] for further investigation Past Medical History: See chart Meds: See chart I personally reviewed all of the medications Social & Family History: See chart Review of Systems: Per initial HPI on admission. Physical Exam: GEN: NAD HEENT: Normocephalic Neuro: Mental status:Alert and oriented to place, year, and month. he knew the president and able to simple calculation. pt does have occasional difficulty with word findings and sometimes hard to remember his recent events. .No dysarthria or aphasia.No neglect. Fluent speech. No apraxia Cranial Nerves:II-XII intact Motor:Normal bulk and tone,5-/5 strength x 4 extremities Coordination:Intact Reflexes: down going toes keke Sensation: Intact x 4 extremities to touch Chart reviewed I have spent more than 50% educating patient about potential diagnosis and neurological evaluation and coordinating care with patient's treatment team. Total time spent (including chart review and coordination of care): 80 min (this includes chart review). History of Present Illness Attending Physician: Regan Cho MD Allergies Allergy/AdvReac Type Severity Reaction Status Date / Time lisinopril AdvReac Intermediate Cough Verified 04/18/22 17:19 Home Medications Medication Instructions Recorded Confirmed Type magnesium oxide 400 mg PO QPM 10/04/18 04/18/22 History multivitamin (Daily Multi-Vitamin 1 tab PO QPM 10/04/18 04/18/22 History tablet) cholecalciferol (vitamin D3) 10 400 units PO QAM 12/21/18 04/18/22 History mcg (400 unit) capsule atorvastatin 10 mg tablet 10 mg PO QPM 06/23/21 04/18/22 History losartan 100 mg tablet 100 mg PO QPM 06/23/21 04/18/22 History metoprolol succinate 25 mg 25 mg PO QPM 06/23/21 04/18/22 History tablet,extended release 24 hr chlorthalidone 25 mg tablet 25 mg PO DAILY #90 tabs 08/10/21 04/18/22 Rx mycophenolate mofetil 250 mg 250 mg PO BID #180 ea 01/18/22 04/18/22 Rx capsule aspirin 81 mg tablet,delayed 81 mg PO DAILY 04/18/22 04/18/22 History release calcium carbonate 200 mg calcium 400 mg PO BID 04/18/22 04/18/22 History (500 mg) chewable tablet (Tums) omega-3 fatty acids 1,000 mg 1,000 mg PO DAILY 04/18/22 04/18/22 History capsule tacrolimus 1 mg capsule, 1 mg PO BID Z94.0 04/18/22 04/18/22 History immediate-release Patient History Medical History 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 Polycystic kidney Prediabetes Primary hypertension Unintentional weight loss Surgical History H/O right inguinal hernia repair H/O transurethral resection of prostate History of cataract surgery RT/LEFT History of colonoscopy S/P kidney transplant 2005 at [facility] r/t polycystic kidney Status post Mohs surgery Family History Grandfather (Maternal) Cardiac disorder Grandmother (Paternal) Cardiac disorder Grandfather (Paternal) Cardiac disorder Mother Cardiac disorder Hypertension Grandmother (Maternal) Diabetes Brother Hypertension Sister Renal transplant, status post Hypertension Other No family history of adverse response to anesthesia Social History Smoking Status: Former smoker Tobacco Type: Cigarettes Second Hand Exposure: No; Hx Alcohol Use: Yes Alcohol type: beer Hx Substance Use: No Preferred Language: Citizen Of [place] Communication Ability: Effective Visual Impairment: No Limitations Hearing Ability: Normal Perforator Operator Required: No Beliefs That Will Affect Care: None marital status: Current Living Situation: Alone current occupational status: retired How many Children do You have: 2 Feels Safe at Home: Yes during the past year weight has: decreased > 10 lbs Dental Care, Regularly: No Seatbelt Use: always Sunscreen Use: Yes Assistive Devices: Denture - Upper, Denture - Lower and Glasses Results & Data ([facility]) Vital Signs (Past 12 Hours) Vital Signs Temp Pulse Resp BP Pulse Ox O2 Del Method 04/19/22 07:43 36.9 C 71 16 164/76 H 96 Room Air
[2022-04-19] MEDS ORDERED: NORMOSOL-R 1,000 ML IV SCH (10:30)
--- NOTE | 2022-04-19 10:31 | Nephrology Consultation ---
Date of Consultation April 19, 2022 Assessment & Plan (1) TUNG (acute kidney injury): Urine notable for WBCS, epithelial cells and hyaline casts. Non-oliguric. Electrolytes acceptable. Baseline creatinine 1.2-1.4 mg/dL. No indication for HVAC INSTRUCTOR. I suspect a component of intravascular volume depletion complicated by hypertensive nephropathy. 500 ml of normosol will be provided. Amlodipine 5 mg added. BP improving. Remains on chlorthalidone and metoprolol. Tolerating these medications well. Losartan held due to TUNG. Transplant US + duplex ordered. Medications are otherwise appropriately dosed for kidney function. Document I/O's. Repeat metabolic profile tomorrow AM. (2) Cognitive decline: Appreciate neurology consultation. Unfortunately clinical presentation concerning for progression of underlying dementia. No signs of infection or concerning culprit medications identified. MRI brain pending. (3) History of renal transplant: Continue tacrolimus 1 mg BID and MMF 250 mg BID. Tacro level on 04/16 acceptable. Level sent yesterday will not be a true trough. (4) Hypertensive crisis: Continue chlorthalidone and metoprolol as Rx. Amlodipine 5 mg daily added. Losartan held. Improving. 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 He has a functional kidney transplant with good baseline allograft function. Serum creatinine in November was 1.26 mg/dL. Medical history is also notable for hypertension, hypercholesterolemia, hyperglycemia, complex sleep apnea syndrome, as well as memory loss. I know Mr. Jeffery well from the outpatient nephrology clinic. He was scheduled for a 6 month follow up visit with me today. Mr. Marie developed end-stage renal disease in . He underwent a preemptive donor transplant but the allograft quickly failed within 2 weeks reportedly due to hyperacute rejection. The transplant was removed in this setting. He was then on maintenance hemodialysis until a second donor kidney became available. This kidney has continued to function well. Serum creatinine has been stable in the range of 1.0-1.4 mg/dL. He is immunosuppressed with mycophenolate mofetil 250 mg taken twice daily and tacrolimus 1 mg in the morning and 1 mg in the evening. He is not taking prednisone at the current time. He has no indication of episodes of acute transplant rejection. He has no symptoms of infection, rejection, volume overload or uremia. He has not had any other complications of his polycystic disease. Complications of immunosuppression include multiple dermatologic lesions particularly on his scalp and face. Some of these were actinic keratoses and some squamous cell carcinomas. He has had no evidence of metastatic squamous cell cancer. Recent medical history is notable for persistent unintentional weight loss. He had described an increasingly sedentary lifestyle. Weight in 2019 was 104 kg. In 2019, 94-96 kg. In July 92 kg and in September 86.5 kg. Weight is now down to 76.3 kg. PSA was reassuring. Screening for hepatitis C completed. Thyroid testing also reassuring. Etiology of the weight loss has not been clear. In addition to weight loss, Kevin has also been struggling with progressive memory loss. He is following the the neurology clinic with Dr. Dhillon. Mr. Marie also has a history of mild depression. He has been seen by Psychiatry in the past. He has had neuro psychological testing done. Prior evaluation had shown a decline in perceptual speed, visual working memory, the rate of verbal learning and executive function. I saw the patient with Dr. Schwarz this morning and discussed the patient's recent history. He has been diagnosed as having a complex sleep apnea syndrome.He is followed by Dr. Marco Strange. Unfortunately he reports that he has not been using CPAP regularly at home. He a history of being evaluated for lightheadedness or vertigo associated with sudden movements of his head or sudden changes of position. He was evaluated for this several years ago at the [facility]. No specific diagnosis was made at that time. Kevin did recognize me when I entered his hospital room this morning. However, he demonstrated obvious confusion. He was having trouble keeping track of dates. He did tell me that he presented to the [facility] office building yesterday to have blood work for our scheduled visit but he admits that he was confused and having difficulty remembering what he was doing once he got there. Once in the building, he went to his PCP's office and was sent to the hospital due to his degree of confusion. Kevin states that this was the second time that he had traveled to the [facility] to try to have his labs completed. He was able to tell me the year but not the day or month. He was not able to recall the name of his PCP. He did tell me that he thought that he might have to check in with his PCP to discuss something but he could not recall what he wanted to discuss. He states that he has been taking his medications at home as prescribed and eating regular meals. He is able to tell me his antirejection medications and dosages. He understands that he is at [facility] and joked that an ambulance was called to transport him from across the parking lot because he needed to be hospitalized so desperately. He understands concerns related to his confusion and memory loss. He admits that his cognitive function appears to be progressively declining but he is resistant to the idea of starting medications for this. He told me that there are many side effects and he doesn't see them offering much help. Kevin was admitted with accelerated hypertension. BP improving today. Volume status acceptable. Serum creatinine elevated at 2.2 mg/dL on admission. He is non-oliguric. He remains on chlorthalidone and metoprolol succinate. Losartan held due to TUNG. Urine microscopy demonstrates 10-30 WBC, multiple epithelial cells, and hyaline casts. Allergies Allergy/AdvReac Type Severity Reaction Status Date / Time lisinopril AdvReac Intermediate Cough Verified 04/18/22 17:19 Home Medications Medication Instructions Recorded Confirmed Type magnesium oxide 400 mg PO QPM 10/04/18 04/18/22 History multivitamin (Daily Multi-Vitamin 1 tab PO QPM 10/04/18 04/18/22 History tablet) cholecalciferol (vitamin D3) 10 400 units PO QAM 12/21/18 04/18/22 History mcg (400 unit) capsule atorvastatin 10 mg tablet 10 mg PO QPM 06/23/21 04/18/22 History losartan 100 mg tablet 100 mg PO QPM 06/23/21 04/18/22 History metoprolol succinate 25 mg 25 mg PO QPM 06/23/21 04/18/22 History tablet,extended release 24 hr chlorthalidone 25 mg tablet 25 mg PO DAILY #90 tabs 08/10/21 04/18/22 Rx mycophenolate mofetil 250 mg 250 mg PO BID #180 ea 01/18/22 04/18/22 Rx capsule aspirin 81 mg tablet,delayed 81 mg PO DAILY 04/18/22 04/18/22 History release calcium carbonate 200 mg calcium 400 mg PO BID 04/18/22 04/18/22 History (500 mg) chewable tablet (Tums) omega-3 fatty acids 1,000 mg 1,000 mg PO DAILY 04/18/22 04/18/22 History capsule tacrolimus 1 mg capsule, 1 mg PO BID Z94.0 04/18/22 04/18/22 History immediate-release Patient History Medical History 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 Polycystic kidney Prediabetes Primary hypertension Unintentional weight loss Surgical History H/O right inguinal hernia repair H/O transurethral resection of prostate History of cataract surgery RT/LEFT History of colonoscopy S/P kidney transplant 2005 at [facility] [place] r/t polycystic kidney Status post Mohs surgery Family History Grandfather (Maternal) Cardiac disorder Grandmother (Paternal) Cardiac disorder Grandfather (Paternal) Cardiac disorder Mother Cardiac disorder Hypertension Grandmother (Maternal) Diabetes Brother Hypertension Sister Renal transplant, status post Hypertension Other No family history of adverse response to anesthesia Social History Smoking Status: Former smoker Tobacco Type: Cigarettes Second Hand Exposure: No; Hx Alcohol Use: Yes Alcohol type: beer Hx Substance Use: No Preferred Language: Hungarian Communication Ability: Effective Visual Impairment: No Limitations Hearing Ability: Normal Combination Technician Required: No Beliefs That Will Affect Care: None marital status: Current Living Situation: Alone current occupational status: retired How many Children do You have: 2 Feels Safe at Home: Yes during the past year weight has: decreased > 10 lbs Dental Care, Regularly: No Seatbelt Use: always Sunscreen Use: Yes Assistive Devices: Denture - Upper, Denture - Lower and Glasses Review of Systems Review of Systems: All systems reviewed & are unremarkable except as noted in HPI & below Physical Exam Constitutional: well developed; no acute distress Eyes: + anicteric sclerae; no corneal abnormality ENMT: Mouth: + dry oral mucous membranes Neck: normal visual inspection and trachea midline Respiratory: normal respiratory effort Auscultation: lungs clear to auscultation bilaterally Cardiovascular: Rate/Rhythm: regular rate Heart Sounds: normal S1 and normal S2 Extremities: no edema Musculoskeletal: Extremities: no cyanosis and no clubbing Skin: + turgor decreased; no jaundice Neurologic: Motor/Sensory: no tremor and no asterixis Psychiatric: Orientation: alert and oriented x 3 Results & Data ([facility]) Vital Signs (Past 12 Hours) Vital Signs Temp Pulse Resp BP Pulse Ox O2 Del Method 04/19/22 07:43 36.9 C 71 16 164/76 H 96 Room Air Laboratory Results Laboratory Results - last 24 hr 04/18/22 04/18/22 04/18/22 15:30 15:30 15:30 WBC 4.18 L RBC 4.32 L Hgb 13.0 L Hct 37.3 L MCV 86.3 MCH 30.1 MCHC 34.9 RDW Std Deviation 43.1 RDW Coeff of Reema 13.9 Plt Count 122 L MPV 9.0 L Immature Gran % (Auto) 0.2 Neut % (Auto) 62.9 Lymph % (Auto) 26.1 Williamson % (Auto) 7.4 Eos % (Auto) 2.4 Baso % (Auto) 1.0 Neut # (Auto) 2.63 Lymph # (Auto) 1.09 L Williamson # (Auto) 0.31 Eos # (Auto) 0.10 Baso # (Auto) 0.04 Immature Gran # (Auto) 0.01 Sodium 140 Potassium 4.3 Chloride 106 Carbon Dioxide 29 Anion Gap 5 BUN 25 H Creatinine 2.20 H Est Cr Clr Drug Dosing 30.8 Est GFR ( Amer) 31.8 Est GFR (Non-Af Amer) 27.5 BUN/Creatinine Ratio 11.4 Glucose 110 H Calcium 10.1 Total Bilirubin 1.0 AST 13 ALT 5 L Alkaline Phosphatase 46 Total Protein 8.0 Albumin 4.2 Globulin 3.8 Albumin/Globulin Ratio 1.1 Vitamin B12 Folate TSH 0.948 Urine Color Urine Appearance Urine pH Ur Specific [place] Urine Protein Urine Glucose (UA) Urine Ketones Urine Blood Urine Nitrite Urine Bilirubin Urine Urobilinogen Ur Leukocyte Esterase Urine WBC (Auto) Urine RBC (Auto) U Hyaline Cast (Auto) U Epithel Cells (Auto) Urine Bacteria (Auto) Ur Renal Epithelial Cell Tacrolimus SARS-CoV-2, RNA, NAAT 04/18/22 04/18/22 04/18/22 15:30 15:30 16:14 WBC RBC Hgb Hct MCV MCH MCHC RDW Std Deviation RDW Coeff of Reema Plt Count MPV Immature Gran % (Auto) Neut % (Auto) Lymph % (Auto) Williamson % (Auto) Eos % (Auto) Baso % (Auto) Neut # (Auto) Lymph # (Auto) Williamson # (Auto) Eos # (Auto) Baso # (Auto) Immature Gran # (Auto) Sodium Potassium Chloride Carbon Dioxide Anion Gap BUN Creatinine Est Cr Clr Drug Dosing Est GFR ( Amer) Est GFR (Non-Af Amer) BUN/Creatinine Ratio Glucose Calcium Total Bilirubin AST ALT Alkaline Phosphatase Total Protein Albumin Globulin Albumin/Globulin Ratio Vitamin B12 254 Folate 8.00 TSH Urine Color Dark Yellow Urine Appearance Clear Urine pH 6.0 Ur Specific [place] 1.017 Urine Protein Trace H Urine Glucose (UA) Negative Urine Ketones Negative Urine Blood Negative Urine Nitrite Negative Urine Bilirubin Negative Urine Urobilinogen Negative Ur Leukocyte Esterase Negative Urine WBC (Auto) 10-30 H Urine RBC (Auto) 0-4 U Hyaline Cast (Auto) 10-30 H U Epithel Cells (Auto) >30 H Urine Bacteria (Auto) Negative Ur Renal Epithelial Cell Not Reportable Tacrolimus SARS-CoV-2, RNA, NAAT NEGATIVE 04/18/22 04/19/22 04/19/22 16:53 07:16 07:16 WBC 3.89 L RBC 3.77 L Hgb 11.4 L Hct 32.5 L MCV 86.2 MCH 30.2 MCHC 35.1 RDW Std Deviation 43.0 RDW Coeff of Reema 13.7 Plt Count 102 L MPV 8.7 L Immature Gran % (Auto) Neut % (Auto) Lymph % (Auto) Williamson % (Auto) Eos % (Auto) Baso % (Auto) Neut # (Auto) Lymph # (Auto) Williamson # (Auto) Eos # (Auto) Baso # (Auto) Immature Gran # (Auto) Sodium 139 Potassium 3.9 Chloride 109 H Carbon Dioxide 26 Anion Gap 4 BUN 26 H Creatinine 2.04 H Est Cr Clr Drug Dosing 31.7 Est GFR ( Amer) 34.9 Est GFR (Non-Af Amer) 30.1 BUN/Creatinine Ratio 12.7 Glucose 88 Calcium 9.6 Total Bilirubin AST ALT Alkaline Phosphatase Total Protein Albumin Globulin Albumin/Globulin Ratio Vitamin B12 Folate TSH Urine Color Urine Appearance Urine pH Ur Specific [place] Urine Protein Urine Glucose (UA) Urine Ketones Urine Blood Urine Nitrite Urine Bilirubin Urine Urobilinogen Ur Leukocyte Esterase Urine WBC (Auto) Urine RBC (Auto) U Hyaline Cast (Auto) U Epithel Cells (Auto) Urine Bacteria (Auto) Ur Renal Epithelial Cell Tacrolimus Pending SARS-CoV-2, RNA, NAAT PG Care Time/CCT Total # of Minutes Spent Total Time Spent with Patient: Total time spent is greater than 50% in coordination of care (as documented) at patient's floor/unit and/or counseling patient: Coding Level of Care Code INP/OBS CONSULT LVL 4, 60 MIN Diagnoses TUNG (acute kidney injury) N17.9 Cognitive decline R41.89 History of renal transplant Z94.0 Hypertensive crisis I16.9 Complex sleep apnea syndrome G47.31
--- NOTE | 2022-04-19 10:39 | Electrocardiogram Report ---
Test Reason : Blood Pressure : / mmHG Vent. Rate : 100 BPM Atrial Rate : 100 BPM P-R Int : 200 ms QRS Dur : 084 ms QT Int : 338 ms P-R-T Axes : 081 -23 015 degrees QTc Int : 436 ms Poor data quality, interpretation may be adversely affected Normal sinus rhythm with 1st degree AV block Minimal voltage criteria for LVH, may be normal variant Abnormal ECG Confirmed by Lion Hitchcock ([id number]) on 04/19/2022 10:38:50 AM Referred By: REFERRED SELF Confirmed By:Alex Hitchcock
[2022-04-19] MEDS ORDERED: amLODIPine BESYLATE 5 MG TAB PO ONE (10:50)
--- NOTE | 2022-04-19 14:05 | Hospitalist Progress Note ---
Date of Service April 19, 2022 Assessment & Plan (1) Hypertensive crisis: Plan: HTN Urgency/emergency, now resolved Has received his home meds of Chlorthalidone, and metoprolol, will hold Losartan Will recheck BP Add IV Hydralazine PRN (2) Altered mental status: Plan: He has a history of mild cognitive decline, likely vascular Had a full neuro assessment in 2019 However, according to son, has been declining more in the past 6 weeks Will obtain folate and Vit b12 levels CT head did not show any acute pathology MRI brain confirmed microvascular changes (3) Kidney replaced by transplant: Plan: Initially on HD but now is a receipeint of renal transplant On Tacrolimus, with adequate levels (4) TUNG (acute kidney injury): Plan: On CKD, prerenal due to dehydration Nephrology on board received normosol some improvement in renal function (5) Mild cognitive impairment: Plan: see 2 above Plan Patient will likely need placement on account of worsening cognitive decline Admission and Anticipated Discharge Date Admission Date: April 18, 2022 Subjective patient seen and examined, no new complaints Review of Systems Review of Systems: All systems reviewed are negative, apart from the ones contained in the history. Physical Exam Physical Exam: The patient is awake, alert and oriented 3, well developed and well nourished, normocephalic and atraumatic, lying in bed and in no acute distress. HEENT--PERRL, EOMI, mucous membranes and oropharynx mildly dry Neck--supple. No JVD. No bruits. Thyroid normal, trachea midline, no adenopathy. Heart--normal S1 and S2. No murmurs, rubs or gallops. Lungs--clear bilaterally, no respiratory distress, no accessory muscle use. Abdomen--normal bowel sounds and soft. Mild epigastric and left sided abdominal pain Extremities--no cyanosis or clubbing. No edema. Dermatologic--normal skin turgor, normal color, no abnormal lymph nodes, no rash. Neurologic--cranial nerves II through XII grossly intact. Rheumatologic--normal range of motion. Psychiatric--normal affect. Results & Data Results & Data ([facility]) Vital Signs (Past 12 Hours) Vital Signs Temp Pulse Resp BP Pulse Ox O2 Del Method 04/19/22 11:06 157/79 H 04/19/22 07:43 98.4 F 71 16 164/76 H 96 Room Air PG Care Time/CCT Total # of Minutes Spent Total Time Spent with Patient: Total time spent is greater than 50% in coordination of care (as documented) at patient's floor/unit and/or counseling patient: Coding Level of Care Code 48294 SUB INP/OBS CARE 2/35MIN Diagnoses Hypertensive crisis I16.9 Altered mental status R41.82 Kidney replaced by transplant Z94.0 TUNG (acute kidney injury) N17.9 Mild cognitive impairment G31.84 Time Spent (min) 35
[2022-04-19] MEDS: MAGNESIUM OXIDE 400 MG TAB PO SCH (20:12)
[2022-04-19] MEDS: MULTIVITAMIN TAB PO SCH (20:12)
[2022-04-19] MEDS: ATORVASTATIN 10 MG TAB PO SCH (20:13)
[2022-04-20] MEDS: METOPROLOL SUCC 25MG EXT REL TAB PO SCH ×2 (08:32→20:57)
[2022-04-20] MEDS: OMEGA-3 (PURIFIED FISH OIL) 1 GM CAP PO SCH (08:33)
[2022-04-20] MEDS: TACROLIMUS 1 MG CAP PO SCH ×2 (08:33→20:57)
[2022-04-20] MEDS: CHLORTHALIDONE 25 MG TAB PO SCH (08:33)
[2022-04-20] MEDS: MYCOPHENOLATE MOFETIL 250 MG CAP PO SCH ×2 (08:33→20:58)
[2022-04-20] MEDS: ASPIRIN 81 MG ECTAB PO SCH (08:33)
[2022-04-20] MEDS: CHOLECALCIFEROL 400 UNITS 10 MCG TAB PO SCH (08:33)
[2022-04-20] MEDS: CALCIUM CARBONATE 500 MG CHEWABLE TAB PO SCH ×2 (08:39→21:02)
[2022-04-20 08:48] LABS: Hematocrit (blood only) 35.6 % (42.0-52.0); Hemoglobin 12.5 g/dl (14.0-18.0); Mean Corpuscular Hemoglobin 30.4 pg (25.0-34.0); Mean Corpuscular Hgb Conc 35.1 g/dL (32.0-36.0); Mean Corpuscular Volume 86.6 fL (80.0-100.0); Mean Platelet Volume 8.7 fL (9.4-12.4); Platelet Count 131 K/uL (130-400); RDW Coefficient of Variation 13.5 % (11.5-14.5); RDW Standard Deviation 42.8 fL (36.4-46.3); Red Blood Count 4.11 M/uL (4.70-6.10)
[2022-04-20] MEDS ORDERED: amLODIPine BESYLATE 5 MG TAB PO SCH (09:00)
[2022-04-20 09:11] LABS: BUN Creatinine Ratio 13.1 (10-20); Calcium 9.5 mg/dl (8.5-10.1); Creatinine Clr Calc Pharmacy 29.1 ml/min; Est GFR (African American) 31.5 ml/min; Est GFR (Non-African American) 27.2 ml/min
--- NOTE | 2022-04-20 11:47 | Ultrasound Report ---
US renal transplant w dop CLINICAL HISTORY: Acute kidney injury. COMPARISON STUDY: None. FINDINGS: [place] kidneys are enlarged measuring 15.7 cm on the right and 16.7 cm and the left with mu ltiple cysts consistent the patient's history of polycystic kidney disease. There is a right lower qu adrant transplant kidney which measures 14.8 cm. No hydronephrosis identified. No elevated velocities within the right renal transplant vessels to suggest hemodynamically significant stenosis. Right najma al transplant vein appears patent. IMPRESSION: 1. Polycystic kidney disease within the [place] kidneys. 2. Normal right lower quadrant renal transplant. No hydronephrosis. ACT 112: Negative or not required by law. Electronically signed by: Constantin Reeves M.D. 04/20/2022 11:46 AM
--- NOTE | 2022-04-20 12:39 | Nephrology Progress Note ---
Date of Service April 20, 2022 Assessment & Plan (1) TUNG (acute kidney injury): Plan: Creatinine stable. Non-oliguric. Electrolytes acceptable. Baseline creatinine 1.2-1.4 mg/dL. 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 I suspect a component of intravascular volume depletion complicated by hypertensive nephropathy. 500 ml of normosol provided yesterday. Volume status appears reasonable. Amlodipine 5 mg added yesterday and 10 mg provided today. Remains on chlorthalidone and metoprolol. Tolerating these medications well. Losartan held due to TUNG. Transplant US + duplex reviewed no GM or evidence of obstruction. Medications are otherwise appropriately dosed for kidney function. Document I/O's. Repeat metabolic profile tomorrow AM. (2) Cognitive decline: Plan: Appreciate neurology consultation. Unfortunately clinical presentation concerning for progression of underlying dementia. No signs of infection or concerning culprit medications identified. (3) History of renal transplant: Plan: Continue tacrolimus 1 mg BID and MMF 250 mg BID. Tacro level on 04/16 acceptable. (4) Hypertensive crisis: Plan: Continue chlorthalidone and metoprolol as Rx. Amlodipine 10 mg daily today. 5 mg started yesterday. Losartan held. (5) Complex sleep apnea syndrome: Admission and Anticipated Discharge Date Admission Date: April 18, 2022 Subjective No acute events overnight. No complaints this AM. Review of Systems Review of Systems: All systems reviewed & are unremarkable except as noted in HPI & below Physical Exam Constitutional: well developed; no acute distress Eyes: + anicteric sclerae; no corneal abnormality ENMT: Mouth: oral mucous membranes not dry Neck: normal visual inspection and trachea midline Respiratory: normal respiratory effort Auscultation: lungs clear to auscultation bilaterally Cardiovascular: Rate/Rhythm: regular rate Heart Sounds: normal S1 and normal S2 Extremities: no edema Musculoskeletal: Extremities: no cyanosis and no clubbing Skin: + turgor decreased; no jaundice Neurologic: Motor/Sensory: no tremor and no asterixis Psychiatric: Orientation: alert and oriented x 3 Results & Data ([facility] Vital Signs (Past 12 Hours) Vital Signs Temp Pulse Resp BP Pulse Ox O2 Del Method 04/20/22 07:38 36.8 C 73 16 182/76 H 98 Room Air Laboratory Results Laboratory Results - last 24 hr 04/20/22 04/20/22 08:10 08:10 WBC 4.60 L RBC 4.11 L Hgb 12.5 L Hct 35.6 L MCV 86.6 MCH 30.4 MCHC 35.1 RDW Std Deviation 42.8 RDW Coeff of Reema 13.5 Plt Count 131 MPV 8.7 L Sodium 136 Potassium 4.0 Chloride 104 Carbon Dioxide 29 Anion Gap 3 BUN 29 H Creatinine 2.22 H Est Cr Clr Drug Dosing 29.1 Est GFR ( Amer) 31.5 Est GFR (Non-Af Amer) 27.2 BUN/Creatinine Ratio 13.1 Glucose 93 Calcium 9.5 PG Care Time/CCT Total # of Minutes Spent Total Time Spent with Patient: Total time spent is greater than 50% in coordination of care (as documented) at patient's floor/unit and/or counseling patient: Coding Level of Care Code 69026 SUB INP/OBS CARE 3/50MIN Diagnoses TUNG (acute kidney injury) N17.9 Cognitive decline R41.89 History of renal transplant Z94.0 Hypertensive crisis I16.9 Complex sleep apnea syndrome G47.31
[2022-04-20] MEDS ORDERED: amLODIPine BESYLATE 5 MG TAB PO ONE ×2 (12:45→16:00)
--- NOTE | 2022-04-20 13:36 | Hospitalist Progress Note ---
Date of Service April 20, 2022 Assessment & Plan (1) Hypertensive crisis: Plan: HTN Urgency/emergency, now resolved Has received his home meds of Chlorthalidone, and metoprolol, will hold Losartan Will continue to monitor BPP Add IV Hydralazine PRN (2) Altered mental status: Plan: He has a history of mild cognitive decline, likely vascular Had a full neuro assessment in 2019 However, according to son, has been declining more in the past 6 weeks Will obtain folate and Vit b12 levels CT head did not show any acute pathology MRI brain confirmed microvascular changes (3) Kidney replaced by transplant: Plan: Initially on HD but now is a receipeint of renal transplant On Tacrolimus, with adequate levels (4) TUNG (acute kidney injury): Plan: On CKD, prerenal due to dehydration Nephrology on board received normosol some improvement in renal function (5) Mild cognitive impairment: Plan: see 2 above Follows up with Neurology outpatient (Dr Dhillon) Plan Patient will likely need placement on account of worsening cognitive decline, I spoke to his son and his , both in agreement that he will need some form of placement where someone can help him at least take his medications Admission and Anticipated Discharge Date Admission Date: April 18, 2022 Subjective patient seen and examined, no new complaints Review of Systems Review of Systems: All systems reviewed are negative, apart from the ones contained in the history. Physical Exam Physical Exam: The patient is awake, alert and oriented 3, well developed and well nourished, normocephalic and atraumatic, lying in bed and in no acute distress. HEENT--PERRL, EOMI, mucous membranes and oropharynx mildly dry Neck--supple. No JVD. No bruits. Thyroid normal, trachea midline, no adenopathy. Heart--normal S1 and S2. No murmurs, rubs or gallops. Lungs--clear bilaterally, no respiratory distress, no accessory muscle use. Abdomen--normal bowel sounds and soft. Mild epigastric and left sided abdominal pain Extremities--no cyanosis or clubbing. No edema. Dermatologic--normal skin turgor, normal color, no abnormal lymph nodes, no rash. Neurologic--cranial nerves II through XII grossly intact. Rheumatologic--normal range of motion. Psychiatric--normal affect. Results & Data Results & Data ([facility]) Vital Signs (Past 12 Hours) Vital Signs Temp Pulse Resp BP Pulse Ox O2 Del Method 04/20/22 07:38 98.2 F 73 16 182/76 H 98 Room Air PG Care Time/CCT Total # of Minutes Spent Total Time Spent with Patient: Total time spent is greater than 50% in coordination of care (as documented) at patient's floor/unit and/or counseling patient: Coding Level of Care Code 97798 SUB INP/OBS CARE 2/35MIN Diagnoses Hypertensive crisis I16.9 Altered mental status R41.82 Kidney replaced by transplant Z94.0 TUNG (acute kidney injury) N17.9 Mild cognitive impairment G31.84 Time Spent (min) 35
[2022-04-20] MEDS: MAGNESIUM OXIDE 400 MG TAB PO SCH (20:58)
[2022-04-20] MEDS: MULTIVITAMIN TAB PO SCH (20:58)
[2022-04-20] MEDS: ATORVASTATIN 10 MG TAB PO SCH (20:59)
[2022-04-21] MEDS ORDERED: SODIUM CHLORIDE 0.45% INJ 1000 ML BAG IV ONE (06:35)
[2022-04-21 07:13] LABS: Hemoglobin 12.5 g/dl (14.0-18.0); Mean Corpuscular Hemoglobin 30.3 pg (25.0-34.0); Mean Corpuscular Hgb Conc 35.7 g/dL (32.0-36.0); Mean Platelet Volume 8.9 fL (9.4-12.4); Platelet Count 121 K/uL (130-400); RDW Coefficient of Variation 13.3 % (11.5-14.5); RDW Standard Deviation 41.2 fL (36.4-46.3); Red Blood Count 4.12 M/uL (4.70-6.10); White Blood Count 4.64 K/ul (4.8-10.8)
[2022-04-21 07:36] LABS: BUN Creatinine Ratio 14.5 (10-20); Calcium 9.7 mg/dl (8.5-10.1); Creatinine Clr Calc Pharmacy 30.2 ml/min; Est GFR (African American) 32.9 ml/min; Est GFR (Non-African American) 28.4 ml/min; Potassium 4.1 mmol/L (3.5-5.1)
[2022-04-21] MEDS: TACROLIMUS 1 MG CAP PO SCH ×2 (08:48→22:10)
[2022-04-21] MEDS: MYCOPHENOLATE MOFETIL 250 MG CAP PO SCH ×2 (08:48→22:10)
[2022-04-21] MEDS: CHOLECALCIFEROL 400 UNITS 10 MCG TAB PO SCH (08:49)
[2022-04-21] MEDS: METOPROLOL SUCC 25MG EXT REL TAB PO SCH ×2 (08:49→22:08)
[2022-04-21] MEDS: amLODIPine BESYLATE 5 MG TAB PO SCH (08:49)
[2022-04-21] MEDS: ASPIRIN 81 MG ECTAB PO SCH (08:49)
[2022-04-21] MEDS: OMEGA-3 (PURIFIED FISH OIL) 1 GM CAP PO SCH (08:49)
[2022-04-21] MEDS: CHLORTHALIDONE 25 MG TAB PO SCH (08:49)
[2022-04-21] MEDS: CALCIUM CARBONATE 500 MG CHEWABLE TAB PO SCH ×2 (08:50→22:12)
[2022-04-21 14:55] LABS: Allen Test Pos (Pos); Base Excess ABG -0.6 mEq/L (-9-1.8); HCO3 ABG 23 mmol/L (19-24); Oxygen Saturation ABG 99.9 % (90-95); PCO2 ABG 35 mmHg (35-46); PO2 ABG 99 mmHg (80-95); pH ABG 7.43 (7.35-7.45)
[2022-04-21] MEDS: SODIUM CHLORIDE 0.9% 500 ML IV SCH ×2 (15:13→22:24)
--- NOTE | 2022-04-21 15:16 | Hospitalist Progress Note ---
Date of Service April 21, 2022 Assessment & Plan (1) Pre-syncope: Plan: A 2nd episode of presyncope, while undergoing physical therapy Etiology is uncertain, could be due to orthostatic BP changes For a couple of months, patient had not been taking his BP meds, was admitted with a BP 200 systolic However, with a recent optimization of his BP, it may be new territory for him Will obtain 2 D ECHO to r/o structural heart abnormality. Obtain CT angio to r/o PE (2) Hypertensive crisis: Plan: HTN Urgency/emergency, now resolved Has received his home meds of Chlorthalidone, and metoprolol, will hold Losartan Will continue to monitor BPP Add IV Hydralazine PRN (3) Altered mental status: Plan: He has a history of mild cognitive decline, likely vascular Had a full neuro assessment in 2019 However, according to son, has been declining more in the past 6 weeks Will obtain folate and Vit b12 levels CT head did not show any acute pathology MRI brain confirmed microvascular changes (4) Kidney replaced by transplant: Plan: Initially on HD but now is a receipeint of renal transplant On Tacrolimus, with adequate levels (5) TUNG (acute kidney injury): Plan: On CKD, prerenal due to dehydration Nephrology on board received normosol some improvement in renal function (6) Mild cognitive impairment: Plan: see 2 above Follows up with Neurology outpatient (Dr Dhillon) Plan Patient will likely need placement on account of worsening cognitive decline, I spoke to his son and his , both in agreement that he will need some form of placement where someone can help him at least take his medications Admission and Anticipated Discharge Date Admission Date: April 18, 2022 Subjective patient seen and examined, no new complaints Review of Systems Review of Systems: All systems reviewed are negative, apart from the ones contained in the history. Physical Exam Physical Exam: The patient is awake, alert and oriented 3, well developed and well nourished, normocephalic and atraumatic, lying in bed and in no acute distress. HEENT--PERRL, EOMI, mucous membranes and oropharynx mildly dry Neck--supple. No JVD. No bruits. Thyroid normal, trachea midline, no adenopat hy. Heart--normal S1 and S2. No murmurs, rubs or gallops. Lungs--clear bilaterally, no respiratory distress, no accessory muscle use. Abdomen--normal bowel sounds and soft. Mild epigastric and left sided abdominal pain Extremities--no cyanosis or clubbing. No edema. Dermatologic--normal skin turgor, normal color, no abnormal lymph nodes, no rash. Neurologic--cranial nerves II through XII grossly intact. Rheumatologic--normal range of motion. Psychiatric--normal affect. Results & Data Results & Data ([facility]) Vital Signs (Past 12 Hours) Vital Signs Temp Pulse Resp BP Pulse Ox O2 Del Method 04/21/22 14:49 97.7 F 70 20 159/81 H 100 04/21/22 07:42 97.9 F 66 16 158/71 H 98 Room Air PG Care Time/CCT Total # of Minutes Spent Total Time Spent with Patient: Total time spent is greater than 50% in coordination of care (as documented) at patient's floor/unit and/or counseling patient: Coding Level of Care Code 31187 SUB INP/OBS CARE 2/35MIN Diagnoses Pre-syncope R55 Hypertensive crisis I16.9 Altered mental status R41.82 Kidney replaced by transplant Z94.0 TUNG (acute kidney injury) N17.9 Mild cognitive impairment G31.84 Time Spent (min) 35
--- NOTE | 2022-04-21 16:32 | Nephrology Progress Note ---
Date of Service April 21, 2022 Assessment & Plan (1) TUNG (acute kidney injury): Plan: Creatinine stable. Non-oliguric. Electrolytes acceptable. Baseline creatinine 1.2-1.4 mg/dL. 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 Presentation suggests possible ATN related to component of intravascular volume depletion complicated by hypertensive nephropathy. 500 ml of normosol provided on admission. Volume status appears reasonable. Losartan held due to TUNG. Transplant US + duplex reviewed no GM or evidence of obstruction. Medications are otherwise appropriately dosed for kidney function. Document I/O's. Repeat metabolic profile tomorrow AM. (2) Cognitive decline: Plan: Unfortunately clinical presentation concerning for progression of underlying dementia. No signs of infection or concerning culprit medications identified. Neurology did not suggest any addition evaluation or treatment at this time. Kevin acknowledges that he will likely require some SNF. (3) History of renal transplant: Plan: Continue tacrolimus 1 mg BID and MMF 250 mg BID. Tacro level on 04/16 acceptable. (4) Hypertensive crisis: Plan: Improving. Continue chlorthalidone and metoprolol as Rx. Amlodipine 10 mg daily added yesterday. Losartan held but if BP remains elevated, may reasonably be restarted if kidney function remains stable. (5) Complex sleep apnea syndrome: Admission and Anticipated Discharge Date Admission Date: April 18, 2022 Subjective No acute events overnight. Episode of presyncope noted during therapy. No chest pain or palpitations. Persistent confusion. Review of Systems Review of Systems: All systems reviewed & are unremarkable except as noted in HPI & below Physical Exam Constitutional: well developed; no acute distress Eyes: + anicteric sclerae; no corneal abnormality ENMT: Mouth: oral mucous membranes not dry Neck: normal visual inspection and trachea midline Respiratory: normal respiratory effort Auscultation: lungs clear to auscultation bilaterally Cardiovascular: Rate/Rhythm: regular rate Heart Sounds: normal S1 and normal S2 Extremities: no edema Musculoskeletal: Extremities: no cyanosis and no clubbing Skin: + turgor decreased; no jaundice Neurologic: Motor/Sensory: no tremor and no asterixis Psychiatric: Orientation: alert and oriented x 3 Results & Data ([facility]) Vital Signs (Past 12 Hours) Vital Signs Temp Pulse Pulse Resp BP Pulse Ox O2 Del Method 04/21/22 15:18 67 04/21/22 14:49 36.5 C 70 20 159/81 H 100 04/21/22 07:42 36.6 C 66 16 158/71 H 98 Room Air Laboratory Results Laboratory Results - last 24 hr 04/18/22 04/21/22 04/21/22 16:53 06:29 06:29 WBC 4.64 L RBC 4.12 L Hgb 12.5 L Hct 35.0 L MCV 85.0 MCH 30.3 MCHC 35.7 RDW Std Deviation 41.2 RDW Coeff of Reema 13.3 Plt Count 121 L MPV 8.9 L ABG pH ABG pCO2 ABG pO2 ABG HCO3 ABG O2 Saturation ABG Base Excess Shivam Test Oxygen Given Sodium 136 Potassium 4.1 Chloride 102 Carbon Dioxide 30 Anion Gap 4 BUN 31 H Creatinine 2.14 H Est Cr Clr Drug Dosing 30.2 Est GFR ( Amer) 32.9 Est GFR (Non-Af Amer) 28.4 BUN/Creatinine Ratio 14.5 Glucose 86 POC Glucose Calcium 9.7 Tacrolimus 1.3 L 04/21/22 04/21/22 04/21/22 09:56 14:39 14:44 WBC RBC Hgb Hct MCV MCH MCHC RDW Std Deviation RDW Coeff of Reema Plt Count MPV ABG pH 7.43 ABG pCO2 35 ABG pO2 99 H ABG HCO3 23 ABG O2 Saturation 99.9 H ABG Base Excess -0.6 Shivam Test Pos Oxygen Given ROOM AIR Sodium Potassium Chloride Carbon Dioxide Anion Gap BUN Creatinine Est Cr Clr Drug Dosing Est GFR ( Amer) Est GFR (Non-Af Amer) BUN/Creatinine Ratio Glucose POC Glucose 153 H 166 H Calcium Tacrolimus PG Care Time/CCT Total # of Minutes Spent Total Time Spent with Patient: Total time spent is greater than 50% in coordination of care (as documented) at patient's floor/unit and/or counseling patient: Coding Level of Care Code 82034 SUB INP/OBS CARE 3/50MIN Diagnoses TUNG (acute kidney injury) N17.9 Cognitive decline R41.89 History of renal transplant Z94.0 Hypertensive crisis I16.9 Complex sleep apnea syndrome G47.31
[2022-04-21] MEDS: ATORVASTATIN 10 MG TAB PO SCH (22:09)
[2022-04-21] MEDS: MULTIVITAMIN TAB PO SCH (22:09)
[2022-04-21] MEDS: MAGNESIUM OXIDE 400 MG TAB PO SCH (22:12)
[2022-04-22] MEDS: SODIUM CHLORIDE 0.9% 500 ML IV SCH ×2 (05:33→09:21)
[2022-04-22 07:29] LABS: Hematocrit (blood only) 35.8 % (42.0-52.0); Hemoglobin 12.9 g/dl (14.0-18.0); Mean Corpuscular Hemoglobin 30.4 pg (25.0-34.0); Mean Corpuscular Volume 84.2 fL (80.0-100.0); Mean Platelet Volume 8.8 fL (9.4-12.4); Platelet Count 114 K/uL (130-400); RDW Coefficient of Variation 13.2 % (11.5-14.5); RDW Standard Deviation 40.3 fL (36.4-46.3); Red Blood Count 4.25 M/uL (4.70-6.10); White Blood Count 4.75 K/ul (4.8-10.8)
[2022-04-22 07:46] LABS: BUN Creatinine Ratio 13.2 (10-20); Calcium 9.6 mg/dl (8.5-10.1); Creatinine Clr Calc Pharmacy 31.5 ml/min; Est GFR (African American) 34.7 ml/min; Est GFR (Non-African American) 29.9 ml/min
[2022-04-22] MEDS: MYCOPHENOLATE MOFETIL 250 MG CAP PO SCH ×2 (08:40→20:27)
[2022-04-22] MEDS: CHOLECALCIFEROL 400 UNITS 10 MCG TAB PO SCH (08:40)
[2022-04-22] MEDS: amLODIPine BESYLATE 5 MG TAB PO SCH (08:40)
[2022-04-22] MEDS: OMEGA-3 (PURIFIED FISH OIL) 1 GM CAP PO SCH (08:40)
[2022-04-22] MEDS: CHLORTHALIDONE 25 MG TAB PO SCH (08:40)
[2022-04-22] MEDS: TACROLIMUS 1 MG CAP PO SCH ×2 (08:41→20:26)
[2022-04-22] MEDS: ASPIRIN 81 MG ECTAB PO SCH (09:15)
[2022-04-22] MEDS: METOPROLOL SUCC 25MG EXT REL TAB PO SCH ×2 (09:16→20:27)
[2022-04-22] MEDS: CALCIUM CARBONATE 500 MG CHEWABLE TAB PO SCH ×2 (09:19→20:51)
--- NOTE | 2022-04-22 10:15 | Nephrology Progress Note ---
Date of Service April 22, 2022 Assessment & Plan (1) TUNG (acute kidney injury): Plan: Creatinine stable. Non-oliguric. Electrolytes acceptable. Baseline creatinine 1.2-1.4 mg/dL. No indication for NURSE PRACTITIONER HOME ASSESSMENTS. Presentation suggests possible ATN related to component of intravascular volume depletion complicated by hypertensive nephropathy. NSS infusion provided yesterday and stopped this AM. Volume status appears reasonable. Losartan held due to TUNG. Transplant US + duplex reviewed no GM or evidence of obstruction. Medications are otherwise appropriately dosed for kidney function. Kidney function has been stable and electrolytes appropriate. IVF stopped. No additional nephrology recommendations at this time. I discussed the plan of care with Dr. Cho. Nephrology will sign-off. Please call with any questions or concerns. However, at this time, no additional changes in medications will be provided. (2) Cognitive decline: Plan: Unfortunately clinical presentation concerning for progression of underlying dementia. No signs of infection or concerning culprit medications identified. Neurology did not suggest any addition evaluation or treatment at this time. Kevin acknowledges that he will likely require some SNF. (3) History of renal transplant: Plan: Continue tacrolimus 1 mg BID and MMF 250 mg BID. Tacro level on 04/16 acceptable. (4) Hypertensive crisis: Plan: Improving. Continue chlorthalidone and metoprolol as Rx. Amlodipine 10 mg daily added this AM. Losartan held but if BP remains elevated, may reasonably be restarted at any time. I do suspect some improvement in BP once IVF stopped. Overall BP of 142-160/71-88 is acceptable. Close outpatient follow up should be arranged with me in the nephrology clinic at discharge. (5) Complex sleep apnea syndrome: Admission and Anticipated Discharge Date Admission Date: April 18, 2022 Subjective No acute events overnight. Resting comfortably in chair this AM. Episode of presyncope noted during therapy yesterday. IVF provided overnight. No chest pain or palpitations. Overall, Kevin feels well this AM. I discussed the plan of care with Dr. Cho this AM. Review of Systems Review of Systems: All systems reviewed & are unremarkable except as noted in HPI & below Physical Exam Constitutional: well developed; no acute distress Eyes: + anicteric sclerae; no corneal abnormality ENMT: Mouth: oral mucous membranes not dry Neck: normal visual inspection and trachea midline Respiratory: normal respiratory effort Auscultation: lungs clear to auscultation bilaterally Cardiovascular: Rate/Rhythm: regular rate Heart Sounds: normal S1 and normal S2 Extremities: no edema Musculoskeletal: Extremities: no cyanosis and no clubbing Skin: + turgor decreased; no jaundice Neurologic: Motor/Sensory: no tremor and no asterixis Psychiatric: Orientation: alert and oriented x 3 Results & Data ([facility]) Vital Signs (Past 12 Hours) Vital Signs Temp Pulse Pulse Resp BP Pulse Ox O2 Del Method 04/22/22 07:39 36.7 C 69 20 173/77 H 99 Room Air 04/22/22 07:05 63 04/22/22 03:32 36.6 C 68 16 159/87 H 93 Room Air 04/21/22 22:47 65 Laboratory Results Laboratory Results - last 24 hr 04/18/22 04/21/22 04/21/22 16:53 14:39 14:44 WBC RBC Hgb Hct MCV MCH MCHC RDW Std Deviation RDW Coeff of Reema Plt Count MPV ABG pH 7.43 ABG pCO2 35 ABG pO2 99 H ABG HCO3 23 ABG O2 Saturation 99.9 H ABG Base Excess -0.6 Shivam Test Pos Oxygen Given ROOM AIR Sodium Potassium Chloride Carbon Dioxide Anion Gap BUN Creatinine Est Cr Clr Drug Dosing Est GFR ( Amer) Est GFR (Non-Af Amer) BUN/Creatinine Ratio Glucose POC Glucose 166 H Calcium Tacrolimus 1.3 L 04/22/22 04/22/22 07:00 07:00 WBC 4.75 L RBC 4.25 L Hgb 12.9 L Hct 35.8 L MCV 84.2 MCH 30.4 MCHC 36.0 RDW Std Deviation 40.3 RDW Coeff of Reema 13.2 Plt Count 114 L MPV 8.8 L ABG pH ABG pCO2 ABG pO2 ABG HCO3 ABG O2 Saturation ABG Base Excess Shivam Test Oxygen Given Sodium 137 Potassium 4.0 Chloride 103 Carbon Dioxide 30 Anion Gap 4 BUN 27 H Creatinine 2.05 H Est Cr Clr Drug Dosing 31.5 Est GFR ( Amer) 34.7 Est GFR (Non-Af Amer) 29.9 BUN/Creatinine Ratio 13.2 Glucose 93 POC Glucose Calcium 9.6 Tacrolimus PG Care Time/CCT Total # of Minutes Spent Total Time Spent with Patient: Total time spent is greater than 50% in coordination of care (as documented) at patient's floor/unit and/or counseling patient: Coding Level of Care Code 28494 SUB INP/OBS CARE 50MIN Diagnoses TUNG (acute kidney injury) N17.9 Cognitive decline R41.89 History of renal transplant Z94.0 Hypertensive crisis I16.9 Complex sleep apnea syndrome G47.31
--- NOTE | 2022-04-22 10:37 | Hospitalist Progress Note ---
Date of Service April 22, 2022 Assessment & Plan (1) Pre-syncope: Plan: had A 2nd episode of presyncope, while undergoing physical therapy on 04/21 Etiology is uncertain, could be due to orthostatic BP changes For a couple of months, patient had not been taking his BP meds, was admitted with a BP 200 systolic However, with a recent optimization of his BP, it may be new territory for him 2 D ECHO to r/o structural heart abnormality pending (2) Hypertensive crisis: Plan: HTN Urgency/emergency, now resolved Has received his home meds of Chlorthalidone, and metoprolol, will resume Losartan Will continue to monitor BPP Add IV Hydralazine PRN (3) Altered mental status: Plan: He has a history of mild cognitive decline, likely vascular Had a full neuro assessment in 2019 However, according to son, has been declining more in the past 6 weeks Will obtain folate and Vit b12 levels CT head did not show any acute pathology MRI brain confirmed microvascular changes (4) Kidney replaced by transplant: Plan: Initially on HD but now is a receipeint of renal transplant On Tacrolimus, with adequate levels (5) TUNG (acute kidney injury): Plan: On CKD, prerenal due to dehydration Nephrology on board received normosol some improvement in renal function (6) Mild cognitive impairment: Plan: see 2 above Follows up with Neurology outpatient (Dr Dhillon) Plan Patient will likely need placement on account of worsening cognitive decline, I spoke to his son and his , both in agreement that he will need some form of placement where someone can help him at least take his medications Admission and Anticipated Discharge Date Admission Date: April 18, 2022 Subjective patient seen and examined, resting comfortably in bed Review of Systems Review of Systems: All systems reviewed are negative, apart from the ones contained in the history. Physical Exam Physical Exam: The patient is awake, alert and oriented 3, well developed and well nourished, normocephalic and atraumatic, lying in bed and in no acute distress. HEENT--PERRL, EOMI, mucous membranes and oropharynx mildly dry Neck--supple. No JVD. No bruits. Thyroid normal, trachea midline, no adenopathy. Heart--normal S1 and S2. No murmurs, rubs or gallops. Lungs--clear bilaterally, no respiratory distress, no accessory muscle use. Abdomen--normal bowel sounds and soft. Mild epigastric and left sided abdominal pain Extremities--no cyanosis or clubbing. No edema. Dermatologic--normal skin turgor, normal color, no abnormal lymph nodes, no rash. Neurologic--cranial nerves II through XII grossly intact. Rheumatologic--normal range of motion. Psychiatric--normal affect. Results & Data Results & Data ([facility]) Vital Signs (Past 12 Hours) Vital Signs Temp Pulse Pulse Resp BP Pulse Ox O2 Del Method 04/22/22 07:39 98.1 F 69 20 173/77 H 99 Room Air 04/22/22 07:05 63 04/22/22 03:32 97.9 F 68 16 159/87 H 93 Room Air 04/21/22 22:47 65 PG Care Time/CCT Total # of Minutes Spent Total Time Spent with Patient: Total time spent is greater than 50% in coordination of care (as documented) at patient's floor/unit and/or counseling patient: Coding Level of Care Code 99826 SUB INP/OBS CARE 2/35MIN Diagnoses Pre-syncope R55 Hypertensive crisis I16.9 Altered mental status R41.82 Kidney replaced by transplant Z94.0 TUNG (acute kidney injury) N17.9 Mild cognitive impairment G31.84 Time Spent (min) 35
--- NOTE | 2022-04-22 11:02 | XCELERA ---
[id number]
[2022-04-22] MEDS: MULTIVITAMIN TAB PO SCH (20:27)
[2022-04-22] MEDS: ATORVASTATIN 10 MG TAB PO SCH (20:51)
[2022-04-22] MEDS: MAGNESIUM OXIDE 400 MG TAB PO SCH (20:52)
[2022-04-23 06:54] LABS: Hematocrit (blood only) 36.6 % (42.0-52.0); Hemoglobin 13.2 g/dl (14.0-18.0); Mean Corpuscular Hemoglobin 30.1 pg (25.0-34.0); Mean Corpuscular Hgb Conc 36.1 g/dL (32.0-36.0); Mean Corpuscular Volume 83.4 fL (80.0-100.0); Mean Platelet Volume 8.9 fL (9.4-12.4); Platelet Count 140 K/uL (130-400); RDW Coefficient of Variation 13.1 % (11.5-14.5); RDW Standard Deviation 39.7 fL (36.4-46.3); Red Blood Count 4.39 M/uL (4.70-6.10); White Blood Count 5.39 K/ul (4.8-10.8)
[2022-04-23 07:09] LABS: Calcium 9.7 mg/dl (8.5-10.1); Creatinine Clr Calc Pharmacy 28.2 ml/min; Est GFR (African American) 30.3 ml/min; Est GFR (Non-African American) 26.2 ml/min; Potassium 3.6 mmol/L (3.5-5.1)
[2022-04-23] MEDS: METOPROLOL SUCC 25MG EXT REL TAB PO SCH ×2 (08:17→21:01)
[2022-04-23] MEDS: CALCIUM CARBONATE 500 MG CHEWABLE TAB PO SCH ×2 (08:17→21:03)
[2022-04-23] MEDS: ASPIRIN 81 MG ECTAB PO SCH (08:18)
[2022-04-23] MEDS: MYCOPHENOLATE MOFETIL 250 MG CAP PO SCH ×2 (08:18→21:01)
[2022-04-23] MEDS: amLODIPine BESYLATE 5 MG TAB PO SCH (08:18)
[2022-04-23] MEDS: CHLORTHALIDONE 25 MG TAB PO SCH (08:18)
[2022-04-23] MEDS: OMEGA-3 (PURIFIED FISH OIL) 1 GM CAP PO SCH (08:18)
[2022-04-23] MEDS: TACROLIMUS 1 MG CAP PO SCH ×2 (08:18→21:01)
[2022-04-23] MEDS: CHOLECALCIFEROL 400 UNITS 10 MCG TAB PO SCH (08:18)
--- NOTE | 2022-04-23 12:53 | Discharge Summary ---
Date of Service April 23, 2022 Admission HPI Per Admitting Provider This is a 81 yo M with a history of HTN, Depression, Mild cognitive impairment, ESRD s/p Renal Transplant who was sent to the hospital by his PCP on account of worsening cognitive decline, word finding difficulty. According to reports, patient presented to the clinic today without an appointment and was having difficulties remebering things. The SLUDGE CONTROL ATTENDANT deemed him unsafe driving home by himself and instead sent him to the hospital for further evaluation. According to the son, from whom most of the history was obtained, patient has been having some cognitive decline over the past year, however, it got worse within the past 6 weeks. He lives by himself and they are concerned he may not be safe living by himself. He has a history of ESRD, initially was on HD, but is now s/p Renal transplant, patient says he has been compliant with his meds. Here in the ED, BP was 202/101, CT head did not show any acute pathology. He iwll be admitted to the [facility] for further investigation Principal Diagnosis HTN urgency Discharge Exam The patient is awake, alert and oriented 3, well developed and well nourished, normocephalic and atraumatic, lying in bed and in no acute distress. HEENT--PERRL, EOMI, mucous membranes and oropharynx mildly dry Neck--supple. No JVD. No bruits. Thyroid normal, trachea midline, no adeno deborah. Heart--normal S1 and S2. No murmurs, rubs or gallops. Lungs--clear bilaterally, no respiratory distress, no accessory muscle use. Abdomen--normal bowel sounds and soft. Mild epigastric and left sided abdominal pain Extremities--no cyanosis or clubbing. No edema. Dermatologic--normal skin turgor, normal color, no abnormal lymph nodes, no rash. Neurologic--cranial nerves II through XII grossly intact. Rheumatologic--normal range of motion. Psychiatric--normal affect. Discharge Data Allergies Allergy/AdvReac Type Severity Reaction Status Date / Time lisinopril AdvReac Intermediate Cough Verified 04/18/22 17:19 Consultations 04/18/22 17:19 ED Decision to Admit Stat 04/18/22 19:54 Consult Nephrology Routine Consult Neurology Routine Ordered Studies 04/18/22 15:48 CT head/brain wo con Stat 04/18/22 17:30 MRI Brain [MR brain wo con] Routine 04/20/22 09:09 US renal transplant w dop Routine Hospital Course (1) Pre-syncope: Etiology is uncertain, could be due to orthostatic BP changes (very significant drop) from authonomic dysfunction Patient has suspected undiagnosed parkinsons, given mild pill rolling tremor and slowing gailt, he probably has some degree of auhtonomic dysfunctionas well For a couple of months, patient had not been taking his BP meds, was admitted with a BP 200 systolic, but has been noted to drop to 100, especially on ambulation However, with a recent optimization of his BP, it may be new territory for him. I will discontinue his Losartan 100mg and start him on low dose Amlodipine. I would not be very agressive in controlling his BP, given the tendency for orthostasis 2 D ECHO to did not show any structural heart abnormality (2) Hypertensive crisis: HTN Urgency/emergency, now resolved Discontinue Losartan, start low dose amlodipine (3) Altered mental status: He has a history of mild cognitive decline, likely vascular Had a full neuro assessment in 2020 However, according to son, has been declining more in the past 6 weeks Will obtain folate and Vit b12 levels CT head did not show any acute pathology MRI brain confirmed microvascular changes (4) Kidney replaced by transplant: Initially on HD but now is a receipeint of renal transplant On Tacrolimus, with adequate levels (5) TUNG (acute kidney injury): On CKD, prerenal due to dehydration Nephrology on board received normosol some improvement in renal function (6) Mild cognitive impairment: see 2 above Follows up with Neurology outpatient (Dr Dhillon) Plan d/c to the [facility] Total Time Total Time Spent Total Time Spent (In Minutes): 35 Discharge Plan Discharge Items Patient Disposition: Transfer Nursing Home Fac Reason For Visit: AMS Discharge Diagnosis: Acute on chronic encephalopathy, HTN urgency Activity: Resume your previous activity Non-emergency contact: Primary Care Provider Call non-emergency contact if: you have any medication questions Follow-up/Referrals: Lydia Dobbs MD [Primary Care Provider] - Diet: Regular Addtl Attending Provider Instructions: Please make appointment to follow up with your regular PCP Pending Studies at Discharge: No Stand-Alone Forms: My [facility] Skilled Items Patient informed of condition?: Yes DNR: No Discharge Level of Care: Skilled Communicable Disease: No Discharge Prognosis: Stable Lines: None Urinary Catheter: No Medications and DC Order Prescriptions: New amlodipine [Norvasc] 5 mg Tablet 5 mg PO QAM 30 Days Qty: 30 0RF Continued mycophenolate mofetil 250 mg capsule 250 mg PO BID Qty: 180 3RF magnesium oxide 400 mg magnesium tablet 400 mg PO QPM multivitamin [Daily Multi-Vitamin] tablet 1 tab PO QPM chlorthalidone 25 mg tablet 25 mg PO DAILY Qty: 90 3RF Patient Comments: QAM cholecalciferol (vitamin D3) 400 unit capsule 400 units PO QAM atorvastatin 10 mg tablet 10 mg PO QPM metoprolol succinate 25 mg tablet extended release 24 hr 25 mg PO QPM omega-3 fatty acids 1,000 mg Capsule 1,000 mg PO DAILY aspirin 81 mg Tablet,Delayed Release (Dr/Ec) 81 mg PO DAILY calcium carbonate [Tums] 200 mg calcium (500 mg) Tablet,Chewable 400 mg PO BID tacrolimus 1 mg capsule 1 mg PO BID Discontinued losartan 100 mg tablet 100 mg PO QPM Discharge Orders: Discharge Order (Routine); Ordered 04/23/22 Ordered By: Regan Cho Admission Data Admit Date/Time: 04/18/22 17:33 Attending Provider: Regan Cho Admit Provider: Regan Cho Primary Care Provider: Lydia Dobbs Other Providers: Jyoti Carson ; Hiram Yuan ; Marco Schwarz ; [facility] ; [facility] ; [facility] Coding Level of Care Code HOSP INP/OBS DISCH >30 MIN Diagnoses Pre-syncope R55 Hypertensive crisis I16.9 Altered mental status R41.82 Kidney replaced by transplant Z94.0 TUNG (acute kidney injury) N17.9 Mild cognitive impairment G31.84 Time Spent (min) 35
--- NOTE | 2022-04-23 14:03 | Hospitalist Progress Note ---
Date of Service April 23, 2022 Assessment & Plan (1) Pre-syncope: Plan: Etiology is uncertain, could be due to orthostatic BP changes (very significant drop) from authonomic dysfunction Patient has suspected undiagnosed parkinsons, given mild pill rolling tremor and slowing gailt, he probably has some degree of auhtonomic dysfunctionas well For a couple of months, patient had not been taking his BP meds, was admitted with a BP 200 systolic, but has been noted to drop to 100, especially on ambulation However, with a recent optimization of his BP, it may be new territory for him. I will discontinue his Losartan 100mg and start him on low dose Amlodipine. I wo uld not be very agressive in controlling his BP, given the tendency for orthostasis 2 D ECHO to did not show any structural heart abnormality (2) Hypertensive crisis: Plan: HTN Urgency/emergency, now resolved Discontinue Losartan, start low dose amlodipine (3) Altered mental status: Plan: He has a history of mild cognitive decline, likely vascular Had a full neuro assessment in 2019 However, according to son, has been declining more in the past 6 weeks Will obtain folate and Vit b12 levels CT head did not show any acute pathology MRI brain confirmed microvascular changes (4) Kidney replaced by transplant: Plan: Initially on HD but now is a receipeint of renal transplant On Tacrolimus, with adequate levels (5) TUNG (acute kidney injury): Plan: On CKD, prerenal due to dehydration Nephrology on board received normosol some improvement in renal function (6) Mild cognitive impairment: Plan: see 2 above Follows up with Neurology outpatient (Dr Dhillon) Plan d/c to the [facility] Admission and Anticipated Discharge Date Admission Date: April 18, 2022 Subjective patient seen and examined, resting comfortably in bed Review of Systems Review of Systems: All systems reviewed are negative, apart from the ones contained in the history. Physical Exam Physical Exam: The patient is awake, alert and oriented 3, well developed and well nourished, normocephalic and atraumatic, lying in bed and in no acute distress. HEENT--PERRL, EOMI, mucous membranes and oropharynx mildly dry Neck--supple. No JVD. No bruits. Thyroid normal, trachea midline, no adenopathy. Heart--normal S1 and S2. No murmurs, rubs or gallops. Lungs--clear bilaterally, no respiratory distress, no accessory muscle use. Abdomen--normal bowel sounds and soft. Mild epigastric and left sided abdominal pain Extremities--no cyanosis or clubbing. No edema. Dermatologic--normal skin turgor, normal color, no abnormal lymph nodes, no rash. Neurologic--cranial nerves II through XII grossly intact. Rheumatologic--normal range of motion. Psychiatric--normal affect. Results & Data Results & Data ([facility]) Vital Signs (Past 12 Hours) Vital Signs Temp Pulse Pulse Resp BP Pulse Ox O2 Del Method 04/23/22 11:07 98.2 F 65 18 121/65 96 Room Air 04/23/22 07:13 64 04/23/22 06:57 97.9 F 71 18 143/77 H 100 Room Air 04/23/22 03:25 98.4 F 73 18 165/86 H 100 Room Air PG Care Time/CCT Total # of Minutes Spent Total Time Spent with Patient: Total time spent is greater than 50% in coordination of care (as documented) at patient's floor/unit and/or counseling patient: Coding Level of Care Code 92309 SUB INP/OBS CARE 2/35MIN Diagnoses Pre-syncope R55 Hypertensive crisis I16.9 Altered mental status R41.82 Kidney replaced by transplant Z94.0 TUNG (acute kidney injury) N17.9 Mild cognitive impairment G31.84 Time Spent (min) 35
[2022-04-23] MEDS ORDERED: TAMSULOSIN HCL 0.4 MG CAP PO ONE (15:30)
[2022-04-23] MEDS: ATORVASTATIN 10 MG TAB PO SCH (21:00)
[2022-04-23] MEDS: MULTIVITAMIN TAB PO SCH (21:01)
[2022-04-23] MEDS: MAGNESIUM OXIDE 400 MG TAB PO SCH (21:03)
[2022-04-24] MEDS: MYCOPHENOLATE MOFETIL 250 MG CAP PO SCH ×2 (08:14→20:46)
[2022-04-24] MEDS: TAMSULOSIN HCL 0.4 MG CAP PO SCH (08:14)
[2022-04-24] MEDS: TACROLIMUS 1 MG CAP PO SCH ×2 (08:14→20:46)
[2022-04-24] MEDS: ASPIRIN 81 MG ECTAB PO SCH (08:15)
[2022-04-24] MEDS: METOPROLOL SUCC 25MG EXT REL TAB PO SCH ×2 (08:15→20:46)
[2022-04-24] MEDS: CHLORTHALIDONE 25 MG TAB PO SCH (08:15)
[2022-04-24] MEDS: CHOLECALCIFEROL 400 UNITS 10 MCG TAB PO SCH (08:15)
[2022-04-24] MEDS: amLODIPine BESYLATE 5 MG TAB PO SCH (08:15)
[2022-04-24] MEDS: OMEGA-3 (PURIFIED FISH OIL) 1 GM CAP PO SCH (08:15)
[2022-04-24] MEDS: CALCIUM CARBONATE 500 MG CHEWABLE TAB PO SCH ×2 (08:15→20:50)
--- NOTE | 2022-04-24 12:04 | Hospitalist Progress Note ---
Date of Service April 24, 2022 Assessment & Plan (1) Pre-syncope: Plan: Etiology is uncertain, could be due to orthostatic BP changes (very significant drop) from authonomic dysfunction Patient has suspected undiagnosed parkinsons(, given mild pill rolling tremor a nd slowing gait, he probably has some degree of autonomic dysfunctionas well) For a couple of months, patient had not been taking his BP meds, was admitted with a BP 200 systolic, but has been noted to drop to 100, especially on ambulation However, with a recent optimization of his BP, it may be new territory for him. I will discontinue his Losartan 100mg and start him on low dose Amlodipine. I wo uld not be very aggressive in controlling his BP, given the tendency for orthostasis 2 D ECHO to did not show any structural heart abnormality (2) Hypertensive crisis: Plan: HTN Urgency/emergency, now resolved Discontinue Losartan, start low dose amlodipine (3) Altered mental status: Plan: He has a history of mild cognitive decline, likely vascular Had a full neuro assessment in 2019 However, according to son, has been declining more in the past [address] head did not show any acute pathology MRI brain confirmed microvascular changes (4) Kidney replaced by transplant: Plan: Initially on HD but now is a receipeint of renal transplant On Tacrolimus, with adequate levels (5) TUNG (acute kidney injury): Plan: On CKD, prerenal due to dehydration Nephrology on board received normosol some improvement in renal function (6) Mild cognitive impairment: Plan: see 2 above Follows up with Neurology outpatient (Dr Dhillon) (7) Urinary retention: Plan: Urinary retention after sherwood was removed will reinsert sherwood and have him follow up with urology outpatient He has a hx of BPH s/p turp Plan d/c to the [facility]. I spoke to the who says she needs to call the [facility] to make sure he will get rehab, but not until tomorrow Admission and Anticipated Discharge Date Admission Date: April 18, 2022 Subjective patient seen and examined, sitting up in the chair Review of Systems Review of Systems: All systems reviewed are negative, apart from the ones contained in the history. Physical Exam Physical Exam: The patient is awake, alert but often confused HEENT--PERRL, EOMI, mucous membranes and oropharynx mildly dry Neck--supple. No JVD. No bruits. Thyroid normal, trachea midline, no adenopathy. Heart--normal S1 and S2. No murmurs, rubs or gallops. Lungs--clear bilaterally, no respiratory distress, no accessory muscle use. Abdomen--normal bowel sounds and soft. Mild epigastric and left sided abdominal pain Extremities--no cyanosis or clubbing. No edema. Dermatologic--normal skin turgor, normal color, no abnormal lymph nodes, no rash. Neurologic--cranial nerves II through XII grossly intact. some tremors Rheumatologic--normal range of motion. Psychiatric--normal affect. Results & Data Results & Data ([facility]) Vital Signs (Past 12 Hours) Vital Signs Temp Pulse Resp BP Pulse Ox O2 Del Method 04/24/22 11:38 98.2 F 69 19 137/66 100 Room Air 04/24/22 08:26 97.9 F 76 18 141/79 H 97 Room Air 04/24/22 02:44 97.7 F 71 18 143/75 H 98 Room Air PG Care Time/CCT Total # of Minutes Spent Total Time Spent with Patient: Total time spent is greater than 50% in coordination of care (as documented) at patient's floor/unit and/or counseling patient: Coding Level of Care Code 70051 SUB INP/OBS CARE 2/35MIN Diagnoses Pre-syncope R55 Hypertensive crisis I16.9 Altered mental status R41.82 Kidney replaced by transplant Z94.0 TUNG (acute kidney injury) N17.9 Mild cognitive impairment G31.84 Urinary retention R33.9 Time Spent (min) 35
[2022-04-24] MEDS: ATORVASTATIN 10 MG TAB PO SCH (20:44)
[2022-04-24] MEDS: MULTIVITAMIN TAB PO SCH (20:46)
[2022-04-24] MEDS: MAGNESIUM OXIDE 400 MG TAB PO SCH (20:49)
[2022-04-25 07:26] LABS: Hematocrit (blood only) 34.9 % (42.0-52.0); Hemoglobin 12.7 g/dl (14.0-18.0); Mean Corpuscular Hemoglobin 30.3 pg (25.0-34.0); Mean Corpuscular Hgb Conc 36.4 g/dL (32.0-36.0); Mean Corpuscular Volume 83.3 fL (80.0-100.0); Mean Platelet Volume 8.9 fL (9.4-12.4); Platelet Count 131 K/uL (130-400); RDW Coefficient of Variation 13.1 % (11.5-14.5); RDW Standard Deviation 39.6 fL (36.4-46.3); Red Blood Count 4.19 M/uL (4.70-6.10); White Blood Count 4.76 K/ul (4.8-10.8)
[2022-04-25 07:40] LABS: BUN Creatinine Ratio 17.4 (10-20); Calcium 9.8 mg/dl (8.5-10.1); Est GFR (African American) 29.2 ml/min; Est GFR (Non-African American) 25.2 ml/min; Potassium 3.5 mmol/L (3.5-5.1)
[2022-04-25] MEDS: CALCIUM CARBONATE 500 MG CHEWABLE TAB PO SCH ×2 (10:04→12:50)
[2022-04-25] MEDS: amLODIPine BESYLATE 5 MG TAB PO SCH ×2 (10:04→11:25)
[2022-04-25] MEDS: ASPIRIN 81 MG ECTAB PO SCH ×2 (10:04→11:26)
[2022-04-25] MEDS: OMEGA-3 (PURIFIED FISH OIL) 1 GM CAP PO SCH ×2 (10:05→11:33)
[2022-04-25] MEDS: TACROLIMUS 1 MG CAP PO SCH ×2 (10:05→11:29)
[2022-04-25] MEDS: MYCOPHENOLATE MOFETIL 250 MG CAP PO SCH ×2 (10:05→12:50)
[2022-04-25] MEDS: CHOLECALCIFEROL 400 UNITS 10 MCG TAB PO SCH ×3 (10:05→11:32)
[2022-04-25] MEDS: CHLORTHALIDONE 25 MG TAB PO SCH ×2 (10:05→11:28)
[2022-04-25] MEDS: METOPROLOL SUCC 25MG EXT REL TAB PO SCH ×2 (10:05→11:33)
[2022-04-25] MEDS: TAMSULOSIN HCL 0.4 MG CAP PO SCH ×2 (10:05→11:29)
--- NOTE | 2022-04-25 14:16 | Discharge Summary ---
Date of Service April 25, 2022 Admission HPI Per Admitting Provider This is a 81 yo M with a history of HTN, Depression, Mild cognitive impairment, ESRD s/p Renal Transplant who was sent to the hospital by his PCP on account of worsening cognitive decline, word finding difficulty. According to reports, patient presented to the clinic today without an appointment and was having difficulties remebering things. The SIDING INSTALLER deemed him unsafe driving home by himself and instead sent him to the hospital for further evaluation. According to the son, from whom most of the history was obtained, patient has been having some cognitive decline over the past year, however, it got worse within the past 6 weeks. He lives by himself and they are concerned he may not be safe living by himself. He has a history of ESRD, initially was on HD, but is now s/p Renal transplant, patient says he has been compliant with his meds. Here in the ED, BP was 202/101, CT head did not show any acute pathology. He iwll be admitted to the [facility] for further investigation Principal Diagnosis HNT urgency, Presyncope Discharge Exam The patient is awake, alert but often confused HEENT--PERRL, EOMI, mucous membranes and oropharynx mildly dry Neck--supple. No JVD. No bruits. Thyroid normal, trachea midline, no adenopathy. Heart--normal S1 and S2. No murmurs, rubs or gallops. Lungs--clear bilaterally, no respiratory distress, no accessory muscle use. Abdomen--normal bowel sounds and soft. Mild epigastric and left sided abdominal pain Extremities--no cyanosis or clubbing. No edema. Dermatologic--normal skin turgor, normal color, no abnormal lymph nodes, no rash. Neurologic--cranial nerves II through XII grossly intact. some tremors Rheumatologic--normal range of motion. Psychiatric--normal affect. Discharge Data Allergies Allergy/AdvReac Type Severity Reaction Status Date / Time lisinopril AdvReac Intermediate Cough Verified 04/18/22 17:19 Consultations 04/18/22 17:19 ED Decision to Admit Stat 04/18/22 19:54 Consult Nephrology Routine Consult Neurology Routine Ordered Studies 04/18/22 15:48 CT head/brain wo con Stat 04/18/22 17:30 MRI Brain [MR brain wo con] Routine 04/20/22 09:09 US renal transplant w dop Routine Hospital Course (1) Pre-syncope: Patient had a near syncopal event twice while participating in PT Etiology is most likley due to orthostatic BP changes (very significant drop) from suspected autonomic dysfunction Patient was admitted, with an elevated BP, systolic of around 200 However, with a recent optimization of his BP, it may be new territory for him. I will discontinue his Losartan 100mg and start him on low dose Amlodipine. I would not be very aggressive in controlling his BP, given the tendency for orthostasis 2 D ECHO to did not show any structural heart abnormality CT head and MRI brain did not show any acute pathology, only microvascular changes As agreed by Nephrology, a systolic BP of 140-150mmhg is acceptable (2) Hypertensive crisis: HTN Urgency/emergency, now resolved Discontinue Losartan, start low dose amlodipine, 5mg daily (3) Altered mental status: He has a history of mild cognitive decline, likely vascular Had a full neuro assessment in 2019 by neurology However, according to son, they noticed a steeper decline over the past few weeks CT head did not show any acute pathology MRI brain confirmed microvascular changes His mentation waxes and wanes Earlier today, his son said that he was very lucid and they had one of the best conversations in a while (4) Kidney replaced by transplant: Initially on HD but now is a receipeint of renal transplant On Tacrolimus, with adequate levels (5) Physical deconditioning: Patient is deconditioned Physical therapy worked with him and he was only able to take a few steps He will benefit from continued physical therapy (6) TUNG (acute kidney injury): Renal function is close to baseline (7) Mild cognitive impairment: Follows up with Neurology outpatient (Dr Dhillon) (8) Urinary retention: Urinary retention after sherwood was removed will reinsert sherwood and have him follow up with urology outpatient He has a hx of BPH s/p turp [place] Patient at times needs feeding assistance, but at times is able to eat on his own Total Time Total Time Spent Total Time Spent (In Minutes): 35 Discharge Plan Discharge Items Patient Disposition: Transfer Long Term Fac Reason For Visit: AMS Discharge Diagnosis: Acute on chronic encephalopathy, HTN urgency Activity: Resume your previous activity Non-emergency contact: Primary Care Provider Call non-emergency contact if: you have any medication questions Follow-up/Referrals: Lydia Dobbs MD [Primary Care Provider] - Diet: Regular Addtl Attending Provider Instructions: Please make appointment to follow up with your regular PCP A systolic BP of 140-150 is acceptable on account of tendency for orthostatic hypotension Pending Studies at Discharge: No Stand-Alone Forms: My [facility] Skilled Items Patient informed of condition?: Yes DNR: No Discharge Level of Care: Skilled Communicable Disease: No Discharge Prognosis: Stable Lines: None Urinary Catheter: No Medications and DC Order Prescriptions: New amlodipine 5 mg tablet 5 mg PO DAILY Qty: 30 0RF Continued mycophenolate mofetil 250 mg capsule 250 mg PO BID Qty: 180 3RF magnesium oxide 400 mg magnesium tablet 400 mg PO QPM multivitamin [Daily Multi-Vitamin] tablet 1 tab PO QPM chlorthalidone 25 mg tablet 25 mg PO DAILY Qty: 90 3RF Patient Comments: QAM cholecalciferol (vitamin D3) 400 unit capsule 400 units PO QAM atorvastatin 10 mg tablet 10 mg PO QPM metoprolol succinate 25 mg tablet extended release 24 hr 25 mg PO QPM omega-3 fatty acids 1,000 mg Capsule 1,000 mg PO DAILY aspirin 81 mg Tablet,Delayed Release (Dr/Ec) 81 mg PO DAILY calcium carbonate [Tums] 200 mg calcium (500 mg) Tablet,Chewable 400 mg PO BID tacrolimus 1 mg capsule 1 mg PO BID Discontinued losartan 100 mg tablet 100 mg PO QPM Discharge Orders: Discharge Order (Routine); Ordered 04/25/22 Ordered By: Regan Cho Admission Data Admit Date/Time: 04/18/22 17:33 Attending Provider: Regan Cho Admit Provider: Regan Cho Primary Care Provider: Lydia Dobbs Other Providers: Jyoti Carson ; Hiram Yuan ; Marco Schwarz ; [facility] ; [facility] ; [facility] Coding Level of Care Code HOSP INP/OBS DISCH >30 MIN Diagnoses Pre-syncope R55 Hypertensive crisis I16.9 Altered mental status R41.82 Kidney replaced by transplant Z94.0 Physical deconditioning R53.81 TUNG (acute kidney injury) N17.9 Mild cognitive impairment G31.84 Urinary retention R33.9 Time Spent (min) 35
== END 2022-04-25 16:13 | DRG 305 ==
LOC: ED 15:06 → EDINP 17:33 → 3W 21:16 → 2E 04-21 14:55

== ENCOUNTER 2022-11-02 11:25 | Inpatient (IN) ==
--- NOTE | 2022-11-02 11:31 | ED Triage Note ---
Date of Service November 02, 2022 History of Present Illness This patient was briefly evaluated while in triage. An abbreviated physical exam was performed. This patient is a 81-year-old Male who presents to the ED for evaluation of confusion. He fell at 10 am after increased confusion and problems with m obility. He fell off his bed onto the floor. He states that he fell on his butt and did not hit his head. Only having mild lower back pain. No headache or neck pain. No chest pain or SOB. Has progressively deteriorated since Mar 2022. Just finishing a course of antibiotics for a UTI. Physical Exam GENERAL: Non-toxic and in no acute distress. HEENT: Pupils equal. No obvious scleral icterus. HEART: Regular rate and rhythm. LUNGS: Clear to auscultation. No accessory muscle use. ABDOMEN: Soft, non-tender NEURO: Alert and oriented. No obvious neurological deficits on quick neuro exam. MUSCULOSKELETAL: In a wheelchair. Mild tenderness to palpation over the lumbar spine and paraspinal muscles. No cervical or thoracic spine tenderness. No tenderness to palpation of the extremities. Initial orders for labs and / or imaging were placed and patient was placed in the waiting area until a bed is available. Please see further documentation for the full ED course.
[2022-11-02 12:32] LABS: Basophils # (auto) 0.04 K/uL (0.00-0.20); Basophils % (auto) 0.6 %; Eosinophils # (auto) 0.07 K/uL (0.00-0.50); Eosinophils % (auto) 1.1 %; Hematocrit (blood only) 40.2 % (42.0-52.0); Hemoglobin 13.6 g/dl (14.0-18.0); Immature Granulocytes # (auto) 0.02 K/uL (0.01-0.20); Immature Granulocytes % (auto) 0.3 %; Lymphocytes # (auto) 1.37 K/uL (1.20-3.40); Lymphocytes % (auto) 21.8 %; Mean Corpuscular Hemoglobin 29.8 pg (25.0-34.0); Mean Corpuscular Hgb Conc 33.8 g/dL (32.0-36.0); Mean Platelet Volume 8.3 fL (9.4-12.4); Monocytes % (auto) 9.5 %; Neutrophils # (auto) 4.19 K/uL (1.40-6.50); Neutrophils % (auto) 66.7 %; Platelet Count 152 K/uL (130-400); RDW Coefficient of Variation 13.2 % (11.5-14.5); RDW Standard Deviation 42.4 fL (36.4-46.3); Red Blood Count 4.57 M/uL (4.70-6.10); White Blood Count 6.29 K/ul (4.8-10.8)
[2022-11-02 12:44] LABS: INR 1.1 (0.9-1.1); Partial Thromboplastin Time 28.8 Seconds (21.0-31.0); Prothrombin Time 11.6 Seconds (9.0-12.0)
[2022-11-02 12:52] LABS: Albumin Level 4.3 gm/dl (3.4-5.0); Anion Gap 8 (3-11); Carbon Dioxide 25 mmol/L (21-32); Chloride 103 mmol/L (98-107); Potassium 4.1 mmol/L (3.5-5.1); Sodium 136 mmol/L (136-145)
[2022-11-02 12:58] LABS: Alanine Aminotransferase 13 U/L (7-52); Albumin Globulin Ratio 1.5 (0.9-2); Alkaline Phosphatase 58 U/L (34-104); Aspartate Aminotransferase 19 U/L (13-39); BUN Creatinine Ratio 11.7 (10-20); Blood Urea Nitrogen 27 mg/dl (6-23); Est GFR (Non-African American) 25.9 ml/min; Globulin 2.9 gm/dl (2.5-4.0); Glucose 89 mg/dl (70-99(Fasting)); Lipase 42 U/L (11-82); Total Protein 7.2 gm/dl (6.0-8.3)
[2022-11-02 13:01] LABS: Troponin I High Sensitivity 12.2 pg/ml (0-20)
--- NOTE | 2022-11-02 13:25 | XRay Report ---
XR chest 1V not portable CLINICAL HISTORY: Chest pain, nonspecific TECHNIQUE: Single frontal radiograph of the chest was obtained. Comparison: Comparison is made to chest radiograph 04/18/2022 FINDINGS: No lines and tubes are seen. The cardiomediastinal silhouette is normal. The lungs are clear. No evid ence of pleural effusion or pneumothorax. IMPRESSION: No acute abnormalities and in particular no radiographic evidence of pneumonia. ACT 112: Negative or not required by law. Electronically signed by: Kevin Saleh M.D. 11/02/2022 1:24 PM
--- NOTE | 2022-11-02 13:33 | XRay Report ---
XR lumbar spine min 4V routine HISTORY: 81 years-old Male Fall acute low back pain status post fall COMPARISON: Chest radiograph 12/14/2021 TECHNIQUE: 5 views of the lumbar spine FINDINGS: Moderate fecal retention. Vascular calcifications. The visualized appearance of the bones. Multilevel disc space narrowing, moderate to severe at L4-L5. Mild to moderate spondylotic spurring with modera te facet arthrosis. Chronic appearing mild T12 compression deformity. No acute fracture or subluxatio n identified. Distal abdominal aortic ectasia, 2.8 cm. IMPRESSION: Degenerative changes as above without acute fracture or subluxation identified. ACT 112: Negative or not required by law. The above report was generated using voice recognition software. It may contain grammatical, syntax o r spelling errors. Electronically signed by: Escobar Ash M.D. 11/02/2022 1:32 PM
--- NOTE | 2022-11-02 14:04 | CT Scan Report ---
HEAD CT NONCONTRAST CT DOSE: 1250.21 mGy.cm HISTORY: Confusion. Fall. Trauma TECHNIQUE: Multiaxial CT images of the head were performed without the use of intravenous contrast. A utomated exposure control was utilized for this study. A dose lowering technique was utilized adheri ng to the principles of ALARA. Comparison: Head CT 04/18/2022. Findings: A few partially opacified right ethmoid air cells. The mastoid air cells are clear. The leida varium and skull base are intact. There is no mass, hematoma, midline shift, acute infarct. White mat ter hypodensity is nonspecific but suggestive of microvascular ischemic change. The ventricles and vigil lci demonstrate mild age-related involutional changes. Impression: No significant change compared to the prior study. No acute intracranial abnormality. ACT 112: Negative or not required by law. Electronically signed by: Constantin Reeves M.D. 11/02/2022 2:03 PM
[2022-11-02] MEDS ORDERED: cefTRIAXone SODIUM 2,000 MG/70 ML BAG IV STA (16:37)
[2022-11-02] MEDS ORDERED: SODIUM CHLORIDE 0.9% 1,000 ML IV ONE (16:37)
--- NOTE | 2022-11-02 16:37 | Emergency Department Note ---
Impression & Plan Acute confusion, UTI (urinary tract infection), Weakness, Renal transplant recipient ED Provider Note NAME: TRESSA RODRIGUEZ AGE: 81 SEX: M : 1940 ARRIVES VIA: Walk-In INFORMANT: Patient ED PROVIDER(S): Bala Marrero DO CHIEF COMPLAINT: Weak and confusion HPI: Patient is a 81-year-old male with a past medical history of polycystic kidney disease currently with a renal transplant with cognitive decline who presents to the ER for confusion. Son notes that he has been having trouble walking as he uses a walker normally but now he has been more of a full assist. He also notes that he has been confused per the halfway as well as the son has noticed that he is hallucinating. Currently being treated for UTI and is on Bactrim for his last day. He denies any headache or change in vision. No chest pain or shortness of breath. No nausea, vomiting, or diarrhea. No dysuria, urgency, or frequency. Always has chronic back pain. PAST MEDICAL HISTORY:See Below PAST SURGICAL HISTORY:See Below FAMILY HISTORY:See Below SOCIAL HISTORY:See Below HOME MEDICATIONS:See Below ALLERGIES:See Below VITALS:See Below PHYSICAL EXAMINATION: GENERAL: Sitting up in bed, alert, well appearing, well nourished, no distress, non-toxic EYE EXAM: normal conjunctiva. PERRL and EOM's grossly intact. OROPHARYNX: no exudate, no erythema, lips, buccal mucosa, and tongue normal and mucous membranes are moist NECK: supple, no nuchal rigidity, no adenopathy, non-tender LUNGS: Clear to auscultation. Normal chest wall mechanics HEART: no murmurs, S1 normal and S2 normal ABDOMEN: abdomen soft, non-tender, normo-active bowel sounds, no masses, no rebound or guarding. : Chronic indwelling Lopez UPPER EXTREMITIES: upper extremities are grossly normal. LOWER EXTREMITIES: No pitting edema. NEURO EXAM: Oriented to person not place but year, cranial nerves II-XII intact, normal speech, no weakness of arms, no weakness of legs. No drift. Finger to nose intact. Gross sensation intact. MEDICAL DECISION MAKING: Patient is a 81-year-old male who presents ER for above-stated complaint. History was obtained from both the patient and the son who was present at bedside. IV was established blood work was obtained. External records reviewed. Urine culture grew out Klebsiella and he was placed on Bactrim. Labs show no significant leukocytosis or anemia. INR unremarkable. BMP with a creatinine of 2.3 with a baseline of 1.8. Patient was given IV fluids and IV Rocephin. LFTs bilirubin and troponin was unremarkable. Pro-Jerry normal. UA does suggest UTI although does have a chronic indwelling Lopez. With the confusion, worsening weakness and immunocompromise state did give him a dose of Rocephin and admit him to the hospitalist for further work-up management. Triage Nursing notes reviewed. Limited review of prior medical records performed Vital Signs: reviewed and remarkable for HTN Differential diagnosis: Infection, dehydration, metabolic abnormality, hypo/hyperglycemia, electrolyte disturbance, anemia, hypoxia, cardiac sources, intracerebral event, toxicologic, neurologic, as well as other pathologies. ER treatment provided: See below Diagnostics interpreted by me include EKG and cardiac monitoring as listed below: -Cardiac Monitoring: An order was placed for continuous cardiac monitoring. The monitor shows a rate of 80 with sinus rhythm. -ECG: Sinus rhythm rate 78 Normal axis No PVCs QTc 419 -Laboratory studies:Interpreted by me as stated above in MDM and shown below. Imaging studies: Xrays: As interpreted by me: Portable AP upright 1 view of the chest shows no focal infiltrate CTs show: CT of the head was negative Consultation(s): As described in MDM Procedures:none Critical Care: None Past Med/Surg History Medical History AV fistula Depression Hearing deficit Hx of basal cell carcinoma Hx of squamous cell carcinoma Hypercholesterolemia Obstructive sleep apnea Polycystic kidney Pre-syncope Prediabetes Primary hypertension Unintentional weight loss Surgical History H/O right inguinal hernia repair H/O transurethral resection of prostate History of cataract surgery History of colonoscopy S/P kidney transplant Status post Mohs surgery Family History Grandfather (Maternal) Cardiac disorder Grandmother (Paternal) Cardiac disorder Grandfather (Paternal) Cardiac disorder Mother Cardiac disorder Hypertension Grandmother (Maternal) Diabetes Brother Hypertension Sister Renal transplant, status post Hypertension Other No family history of adverse response to anesthesia Social History Smoking Status: Never smoker Tobacco Type: Cigarettes Second Hand Exposure: No; Do You Dip or Chew Tobacco: No; Hx Alcohol Use: Yes Alcohol type: beer Hx Substance Use: No Preferred Language: Sammarinese Communication Ability: Impaired Visual Impairment: No Limitations Hearing Ability: Normal Carbonizer Required: No Beliefs That Will Affect Care: None marital status: Current Living Situation: Alone current occupational status: retired How many Children do You have: 2 Feels Safe at Home: Yes Diet: regular during the past year weight has: decreased > 10 lbs Dental Care, Regularly: No Seatbelt Use: always Sunscreen Use: Yes Assistive Devices: Walker Allergies Allergies Allergy/AdvReac Type Severity Reaction Status Date / Time lisinopril AdvReac Intermediate Cough Verified 11/02/22 16:27 Home Meds Home Medications Medication Instructions Recorded Confirmed magnesium oxide 400 mg PO QPM 10/04/18 11/02/22 cholecalciferol (vitamin D3) 10 400 units PO QAM 12/21/18 11/02/22 mcg (400 unit) capsule aspirin 81 mg tablet,delayed 81 mg PO DAILY 04/18/22 11/02/22 release calcium carbonate 200 mg calcium 200 mg PO BID 04/18/22 11/02/22 (500 mg) chewable tablet (Tums) omega-3 fatty acids 1,000 mg 1,000 mg PO DAILY 04/18/22 11/02/22 capsule tacrolimus 1 mg capsule, 1 mg PO BID Z94.0 04/18/22 11/02/22 immediate-release acetaminophen 325 mg capsule 650 mg PO Q4H PRN FEVER <100.4/PAIN 06/30/22 11/02/22 brimonidine 0.2 % eye drops 1 drp OPB HS 08/31/22 11/02/22 multivitamin with minerals 1 tab PO HS 08/31/22 11/02/22 psyllium husk 3.4 gram/5.4 gram 1 tbsp PO DAILY 11/02/22 11/02/22 oral powder (Metamucil) sertraline 25 mg tablet 50 mg PO DAILY 11/02/22 11/02/22 Previous Rx's Medication Instructions Recorded mycophenolate mofetil 250 mg 250 mg PO BID #180 ea 01/18/22 capsule atorvastatin 10 mg tablet 10 mg PO QPM #90 tabs 06/29/22 lidocaine 4 % topical patch 1 patch topical DAILY PRN pain #30 06/30/22 (Salonpas (lidocaine)) ea amlodipine 5 mg tablet 5 mg PO DAILY #90 tabs 08/01/22 potassium chloride 10 mEq 10 meq PO DAILY #90 tabs 08/12/22 tablet,extended release chlorthalidone 25 mg tablet 25 mg PO DAILY #30 tabs 09/07/22 sulfamethoxazole 800 1 tab PO BID 7 days #14 tabs 10/27/22 mg-trimethoprim 160 mg tablet (Bactrim DS) Results & Data (ED) Vital Signs Vital Signs - 24 hr 11/02/22 11:27 11/02/22 16:21 11/02/22 16:26 Temperature 36.8 C Temperature Source Temporal Artery Scan Pulse Rate 80 Pulse Rate [Apical] 83 Respiratory Rate 18 14 Respiratory Effort / Characteristics Non-Labored Spontaneous Respiratory Depth Normal Respiratory Pattern Regular Blood Pressure 128/72 Blood Pressure [Right Arm] 149/83 H Blood Pressure Mean 90 Blood Pressure Mean [Right Arm] 105 Blood Pressure Position [Right Arm] Semi-fowlers Pulse Oximetry 97 98 98 Oxygen Delivery Method Room Air Room Air Room Air Sepsis Recent Fever Within 48 Hours No Sepsis New/Unexplained Change in Mental Status No Sepsis Action Taken by Nursing No Action Required 11/02/22 16:47 11/02/22 16:31 Temperature Temperature Source Pulse Rate 82 81 Pulse Rate [Apical] Respiratory Rate 21 Respiratory Effort / Characteristics Respiratory Depth Respiratory Pattern Blood Pressure Blood Pressure [Right Arm] Blood Pressure Mean Blood Pressure Mean [Right Arm] Blood Pressure Position [Right Arm] Pulse Oximetry 99 Oxygen Delivery Method Room Air Sepsis Recent Fever Within 48 Hours Sepsis New/Unexplained Change in Mental Status Sepsis Action Taken by Nursing Laboratory Data 11/02/22 12:04 11/02/22 12:04 Lab Results 11/02/22 11/02/22 11/02/22 Range/Units 12:01 12:04 12:04 WBC 6.29 (4.8-10.8) K/ul RBC 4.57 L (4.70-6.10) M/uL Hgb 13.6 L (14.0-18.0) g/dl Hct 40.2 L (42.0-52.0) % MCV 88.0 (80.0-100.0) fL MCH 29.8 (25.0-34.0) pg MCHC 33.8 (32.0-36.0) g/dL RDW Std Deviation 42.4 (36.4-46.3) fL RDW Coeff of Reema 13.2 (11.5-14.5) % Plt Count 152 (130-400) K/uL MPV 8.3 L (9.4-12.4) fL Immature Gran % (Auto) 0.3 % Neut % (Auto) 66.7 % Lymph % (Auto) 21.8 % [place] % (Auto) 9.5 % Eos % (Auto) 1.1 % Baso % (Auto) 0.6 % Neut # (Auto) 4.19 (1.40-6.50) K/uL Lymph # (Auto) 1.37 (1.20-3.40) K/uL [place] # (Auto) 0.60 H (0.11-0.59) K/uL Eos # (Auto) 0.07 (0.00-0.50) K/uL Baso # (Auto) 0.04 (0.00-0.20) K/uL Immature Gran # (Auto) 0.02 (0.01-0.20) K/uL PT (9.0-12.0) Seconds INR (0.9-1.1) APTT (21.0-31.0) Seconds PTT Ratio Sodium 136 (136-145) mmol/L Potassium 4.1 (3.5-5.1) mmol/L Chloride 103 (98-107) mmol/L Carbon Dioxide 25 (21-32) mmol/L Anion Gap 8 (3-11) BUN 27 H (6-23) mg/dl Creatinine 2.31 H (0.6-1.4) mg/dl Est Cr Clr Drug Dosing Not Reportable Est GFR ( Amer) 30.0 ml/min Est GFR (Non-Af Amer) 25.9 ml/min BUN/Creatinine Ratio 11.7 (10-20) Glucose 89 (70-99(Fasting)) mg/dl Calcium 10.0 (8.6-10.3) mg/dl Total Bilirubin 1.0 (0.2-1.0) mg/dl AST 19 (13-39) U/L ALT 13 (7-52) U/L Alkaline Phosphatase 58 (34-104) U/L Troponin I High Sens 12.2 (0-20) pg/ml Total Protein 7.2 (6.0-8.3) gm/dl Albumin 4.3 (3.4-5.0) gm/dl Globulin 2.9 (2.5-4.0) gm/dl Albumin/Globulin Ratio 1.5 (0.9-2) Lipase 42 (11-82) U/L Procalcitonin (0-0.5) ng/ml Urine Color Urine Appearance (Clear) Urine pH (4.5-7.5) Ur Specific [place] (1.000-1.030) Urine Protein (Negative) Urine Glucose (UA) (Negative) Urine Ketones (Negative) Urine Blood (Negative) Urine Nitrite (Negative) Urine Bilirubin (Negative) Urine Urobilinogen (Negative) Ur Leukocyte Esterase (Negative) Urine WBC (Auto) (0-5) /hpf Urine RBC (Auto) (0-4) /hpf U Hyaline Cast (Auto) (0-5) /lpf U Epithel Cells (Auto) (0-5) /lpf Urine Bacteria (Auto) (Negative) Urine Yeast SARS-CoV-2, RNA, NAAT NEGATIVE (NEGATIVE) 11/02/22 11/02/22 11/02/22 Range/Units 12:04 16:38 16:43 WBC (4.8-10.8) K/ul RBC (4.70-6.10) M/uL Hgb (14.0-18.0) g/dl Hct (42.0-52.0) % MCV (80.0-100.0) fL MCH (25.0-34.0) pg MCHC (32.0-36.0) g/dL RDW Std Deviation (36.4-46.3) fL RDW Coeff of Reema (11.5-14.5) % Plt Count (130-400) K/uL MPV (9.4-12.4) fL Immature Gran % (Auto) % Neut % (Auto) % Lymph % (Auto) % [place] % (Auto) % Eos % (Auto) % Baso % (Auto) % Neut # (Auto) (1.40-6.50) K/uL Lymph # (Auto) (1.20-3.40) K/uL [place] # (Auto) (0.11-0.59) K/uL Eos # (Auto) (0.00-0.50) K/uL Baso # (Auto) (0.00-0.20) K/uL Immature Gran # (Auto) (0.01-0.20) K/uL PT 11.6 (9.0-12.0) Seconds INR 1.1 (0.9-1.1) APTT 28.8 (21.0-31.0) Seconds PTT Ratio 1.0 Sodium (136-145) mmol/L Potassium (3.5-5.1) mmol/L Chloride (98-107) mmol/L Carbon Dioxide (21-32) mmol/L Anion Gap (3-11) BUN (6-23) mg/dl Creatinine (0.6-1.4) mg/dl Est Cr Clr Drug Dosing Est GFR ( Amer) ml/min Est GFR (Non-Af Amer) ml/min BUN/Creatinine Ratio (10-20) Glucose (70-99(Fasting)) mg/dl Calcium (8.6-10.3) mg/dl Total Bilirubin (0.2-1.0) mg/dl AST (13-39) U/L ALT (7-52) U/L Alkaline Phosphatase (34-104) U/L Troponin I High Sens (0-20) pg/ml Total Protein (6.0-8.3) gm/dl Albumin (3.4-5.0) gm/dl Globulin (2.5-4.0) gm/dl Albumin/Globulin Ratio (0.9-2) Lipase (11-82) U/L Procalcitonin (0-0.5) ng/ml Urine Color Yellow Urine Appearance Cloudy A (Clear) Urine pH 6.5 (4.5-7.5) Ur Specific [place] 1.020 (1.000-1.030) Urine Protein Negative (Negative) Urine Glucose (UA) Negative (Negative) Urine Ketones Trace H (Negative) Urine Blood 1+ H (Negative) Urine Nitrite Positive A (Negative) Urine Bilirubin Negative (Negative) Urine Urobilinogen Negative (Negative) Ur Leukocyte Esterase 1+ H (Negative) Urine WBC (Auto) 5-10 H (0-5) /hpf Urine RBC (Auto) 5-10 H (0-4) /hpf U Hyaline Cast (Auto) 1-5 (0-5) /lpf U Epithel Cells (Auto) 10-20 H (0-5) /lpf Urine Bacteria (Auto) 1+ H (Negative) Urine Yeast Not Reportable SARS-CoV-2, RNA, NAAT NEGATIVE (NEGATIVE) 11/02/22 Range/Units 17:19 WBC (4.8-10.8) K/ul RBC (4.70-6.10) M/uL Hgb (14.0-18.0) g/dl Hct (42.0-52.0) % MCV (80.0-100.0) fL MCH (25.0-34.0) pg MCHC (32.0-36.0) g/dL RDW Std Deviation (36.4-46.3) fL RDW Coeff of Reema (11.5-14.5) % Plt Count (130-400) K/uL MPV (9.4-12.4) fL Immature Gran % (Auto) % Neut % (Auto) % Lymph % (Auto) % [place] % (Auto) % Eos % (Auto) % Baso % (Auto) % Neut # (Auto) (1.40-6.50) K/uL Lymph # (Auto) (1.20-3.40) K/uL [place] # (Auto) (0.11-0.59) K/uL Eos # (Auto) (0.00-0.50) K/uL Baso # (Auto) (0.00-0.20) K/uL Immature Gran # (Auto) (0.01-0.20) K/uL PT (9.0-12.0) Seconds INR (0.9-1.1) APTT (21.0-31.0) Seconds PTT Ratio Sodium (136-145) mmol/L Potassium (3.5-5.1) mmol/L Chloride (98-107) mmol/L Carbon Dioxide (21-32) mmol/L Anion Gap (3-11) BUN (6-23) mg/dl Creatinine (0.6-1.4) mg/dl Est Cr Clr Drug Dosing Est GFR ( Amer) ml/min Est GFR (Non-Af Amer) ml/min BUN/Creatinine Ratio (10-20) Glucose (70-99(Fasting)) mg/dl Calcium (8.6-10.3) mg/dl Total Bilirubin (0.2-1.0) mg/dl AST (13-39) U/L ALT (7-52) U/L Alkaline Phosphatase (34-104) U/L Troponin I High Sens (0-20) pg/ml Total Protein (6.0-8.3) gm/dl Albumin (3.4-5.0) gm/dl Globulin (2.5-4.0) gm/dl Albumin/Globulin Ratio (0.9-2) Lipase (11-82) U/L Procalcitonin < 0.05 (0-0.5) ng/ml Urine Color Urine Appearance (Clear) Urine pH (4.5-7.5) Ur Specific [place] (1.000-1.030) Urine Protein (Negative) Urine Glucose (UA) (Negative) Urine Ketones (Negative) Urine Blood (Negative) Urine Nitrite (Negative) Urine Bilirubin (Negative) Urine Urobilinogen (Negative) Ur Leukocyte Esterase (Negative) Urine WBC (Auto) (0-5) /hpf Urine RBC (Auto) (0-4) /hpf U Hyaline Cast (Auto) (0-5) /lpf U Epithel Cells (Auto) (0-5) /lpf Urine Bacteria (Auto) (Negative) Urine Yeast SARS-CoV-2, RNA, NAAT (NEGATIVE) Administered Medications Atorvastatin Calcium (Atorvastatin 10 Mg Tab) 10 mg PO QPM NAZANIN Stop: 12/02/22 21:28 Last Admin: 11/02/22 21:56 Dose: 10 mg Documented By: LY Brimonidine Tartrate (Brimonidine Tartrate 0.2% 5ml) 1 drops OPB HS NAZANIN Stop: 12/02/22 21:28 Last Admin: 11/02/22 21:56 Dose: 1 drops Documented By: LY Mycophenolate Mofetil (Mycophenolate Mofetil 250 Mg Cap) 250 mg PO BID NAZANIN Stop: 12/02/22 21:28 Last Admin: 11/02/22 21:56 Dose: 250 mg Documented By: LY Tacrolimus (Tacrolimus 1 Mg Cap) 1 mg PO BID NAZANIN Stop: 12/02/22 21:28 Last Admin: 11/02/22 21:56 Dose: 1 mg Documented By: LY Discontinued Medications Sodium Chloride (Nss) 1,000 mls @ 999 mls/hr IV .Q1H1M ONE Stop: 11/02/22 17:37 Last Infusion: 11/02/22 18:00 Dose: 0 mls/hr Documented By: Admin: 11/02/22 16:57 Dose: 999 mls/hr Documented By: AB Ceftriaxone Sodium (Rocephin) 2,000 mg in 70 mls @ 140 mls/hr IV NOW STA Stop: 11/02/22 17:06 Last Infusion: 11/02/22 17:52 Dose: 0 mls/hr Documented By: Admin: 11/02/22 16:56 Dose: 140 mls/hr Documented By: AB Parenteral Electrolytes (Plasma-Lyte A Ph 7.4) 1,000 mls @ 999 mls/hr IV .Q1H1M ONE Stop: 11/02/22 19:26 Last Infusion: 11/02/22 21:10 Dose: 0 mls/hr Documented By: Admin: 11/02/22 19:03 Dose: 999 mls/hr Documented By: AB Imaging Data Radiologist's Impression: Chest X-Ray 11/02/22 11:32 XR chest 1V not portable CLINICAL HISTORY: Chest pain, nonspecific TECHNIQUE: Single frontal radiograph of the chest was obtained. Comparison: Comparison is made to chest radiograph 04/18/2022 FINDINGS: No lines and tubes are seen. The cardiomediastinal silhouette is normal. The lungs are clear. No evidence of pleural effusion or pneumothorax. IMPRESSION: No acute abnormalities and in particular no radiographic evidence of pneumonia. ACT 112: Negative or not required by law. Electronically signed by: Kevin Saleh M.D. 11/02/2022 1:[address] 11/02/22 11:[address] DOSE: 1250.21 mGy.cm HISTORY: Confusion. Fall. Trauma TECHNIQUE: Multiaxial CT images of the head were performed without the use of intravenous contrast. Automated exposure control was utilized for this study. A dose lowering technique was utilized adhering to the principles of ALARA. Comparison: Head CT 04/18/2022. Findings: A few partially opacified right ethmoid air cells. The mastoid air cells are clear. The calvarium and skull base are intact. There is no mass, hematoma, midline shift, acute infarct. White matter hypodensity is nonspecific but suggestive of microvascular ischemic change. The ventricles and sulci demonstrate mild age-related involutional changes. Impression: No significant change compared to the prior study. No acute intracranial abnormality. ACT 112: Negative or not required by law. Electronically signed by: Constantin Reeves M.D. 11/02/2022 2:03 PM Lumbar Spine X-Ray 11/02/22 11:32 XR lumbar spine min 4V routine HISTORY: 81 years-old Male Fall acute low back pain status post fall COMPARISON: Chest radiograph 12/14/2021 TECHNIQUE: 5 views of the lumbar spine FINDINGS: Moderate fecal retention. Vascular calcifications. The visualized appearance of the bones. Multilevel disc space narrowing, moderate to severe at L4-L5. Mild to moderate spondylotic spurring with moderate facet arthrosis. Chronic appearing mild T12 compression deformity. No acute fracture or subluxation identified. Distal abdominal aortic ectasia, 2.8 cm. IMPRESSION: Degenerative changes as above without acute fracture or subluxation identified. ACT 112: Negative or not required by law. The above report was generated using voice recognition software. It may contain grammatical, syntax or spelling errors. Electronically signed by: Escobar Ash M.D. 11/02/2022 1:32 PM Discharge Plan Visit Data Chief Complaint: Confusion Stated Complaint: DOC REF,CONFUSION,MOBILITY ISSUES ED Provider: Bala Marrero Discharge Problem: Acute confusion, UTI (urinary tract infection), Weakness, Renal transplant recipient Patient Disposition: Admitted As Inpatient Discharge Instructions Interventions: ED Discharge Assessment Last Done: 11/02/22 21:03
[2022-11-02 17:05] LABS: Appearance Urine Cloudy (Clear); Bacteria Urine Automated 1+ (Negative); Bilirubin Urine Negative (Negative); Blood Urine 1+ (Negative); Color Urine Yellow; Glucose Urine UA Negative (Negative); Ketones Urine Trace (Negative); Leukocyte Esterase Urine 1+ (Negative); Nitrite Urine Positive (Negative); Protein Urine Negative (Negative); Urobilinogen Urine Negative (Negative); pH Urine 6.5 (4.5-7.5)
--- NOTE | 2022-11-02 17:48 | History & Physical Report ---
Date of Service November 02, 2022 Assessment & Plan (1) UTI (urinary tract infection): Plan: -Admit to med/surge -Stable and currently without hallucinations -Was treated with bactrim for known Klebsiella UTI from urine cultures resulting on 10/26 -His UTI was technically sensitive to Bactrim, however, due to his immunocompromised status it was likely not completely treated -S/P one dose of Ceftriaxone in the ED, will continue with ceftriaxone for now as previous cultures show sensitivity -Will give 1L Normosol on admission as the patient appears dehydrated -Monitor intake and output -DEANNA's for DVT PPX -HH diet with minced/moist texture -AM CBC, BMP (2) Kidney replaced by transplant: Plan: -Is on Tacrolimus and Cellcept, follows with [facility] -Spoke with Nephrology, appreciate their assistance, they would prefer to continue immunosuppressants if the patient is stable at this -Will continue both as he has been stable and is not septic -Will obtain Tacrolimus level on admission (3) Chronic indwelling Sherwood catheter: Plan: -Followed by Urology, has chronic sherwood with leg bag -Will have leg bag exchanged for larger bag and have repeat UA and culture drawn from new bag (4) Altered mental status: Plan: -Likely a combination of chronic decline and acute UTI with dehydration -No focal neuro defects, CT of the head negative -Continue to monitor for improvement with treatment of UTI (5) Primary hypertension: Plan: -Stable -Can continue amlodipine -Will hold Chlorthalidone to prevent further dehydration (6) Falls: Plan: -No acute trauma from fall earlier today -Fall precautions ordered -PT/OT consults placed for possible rehab placement if he remains weak (7) Hypercholesterolemia: Plan: -Continue statin (8) Obstructive sleep apnea: Plan: -Does not tolerate HS CPAP Plan The patient was discussed with Dr. Anaya at the time of the admission History of Present Illness Chief Complaint: Increased confusion, recurrent falls Primary Care Provider: Lydia Dobbs MD Kevin is a 81 yo M with a history of HTN, Depression, Mild cognitive impairment, DUSTY, Polycystic kidney disease s/p Renal Transplant (On cellcept and tacrolimus) follows with [facility], recurrent urine retention who presented to the [facility] ED on 11/02 from [facility] with complaints of increased confusion and multiple falls. Vitals remained stable in the ED. Labs were significant for Cr of 2.31 (baseline as of July was 1.9), and UA which appears to still be infected. CT of the head, xray of the chest, and cxray of the lumbar spine were negative for acute findings. Prior to admission the patient was given a dose of ceftriaxone and 1L NSS. Per chart review, the patient was seen at his PCP's office on 10/26 and UA was concerning for UTI. He was started on Bactrim, son confirmed this was completed. Cultures from the UA grew Klebsiella intermediately sensitive to Macrobid but otherwise pansensitive. At the time of the exam the patient was sitting in bed in no acute distress with his Son sitting bedside, history was mainly obtained from his son. The patient's son confirms that today was the last day of the patient's recent Bactrim prescription. Over the past few weeks the patient has had on ongoing clinical and cognitive decline. His son states that the patient now requires more assistance than can be provided at [facility]. The patient has also been having hallucinations and increased confusion over this time. The patient's son confirms that the patient had a fall earlier today at [facility] but he did not hit his head. The patient denies complaints or pain at this time. We discussed code status, the patient and his son would like him to be a full code for now. They will be working on updating his Living Will in the near future but need to have further discussions before making any changes. Please refer to Dr. Anaya's attestation for any changes to the treatment plan Allergies Allergy/AdvReac Type Severity Reaction Status Date / Time lisinopril AdvReac Intermediate Cough Verified 11/02/22 16:27 Home Medications Medication Instructions Recorded Confirmed Type magnesium oxide 400 mg PO QPM 10/04/18 11/02/22 History cholecalciferol (vitamin D3) 10 400 units PO QAM 12/21/18 11/02/22 History mcg (400 unit) capsule mycophenolate mofetil 250 mg 250 mg PO BID #180 ea 01/18/22 11/02/22 Rx capsule aspirin 81 mg tablet,delayed 81 mg PO DAILY 04/18/22 11/02/22 History release calcium carbonate 200 mg calcium 200 mg PO BID 04/18/22 11/02/22 History (500 mg) chewable tablet (Tums) omega-3 fatty acids 1,000 mg 1,000 mg PO DAILY 04/18/22 11/02/22 History capsule tacrolimus 1 mg capsule, 1 mg PO BID Z94.0 04/18/22 11/02/22 History immediate-release atorvastatin 10 mg tablet 10 mg PO QPM #90 tabs 06/29/22 11/02/22 Rx acetaminophen 325 mg capsule 650 mg PO Q4H PRN FEVER <100.4/PAIN 06/30/22 11/02/22 History lidocaine 4 % topical patch 1 patch topical DAILY PRN pain #30 06/30/22 11/02/22 Rx (Salonpas (lidocaine)) ea amlodipine 5 mg tablet 5 mg PO DAILY #90 tabs 08/01/22 11/02/22 Rx potassium chloride 10 mEq 10 meq PO DAILY #90 tabs 08/12/22 11/02/22 Rx tablet,extended release brimonidine 0.2 % eye drops 1 drp OPB HS 08/31/22 11/02/22 History multivitamin with minerals 1 tab PO HS 08/31/22 11/02/22 History chlorthalidone 25 mg tablet 25 mg PO DAILY #30 tabs 09/07/22 11/02/22 Rx sulfamethoxazole 800 1 tab PO BID 7 days #14 tabs 10/27/22 11/02/22 Rx mg-trimethoprim 160 mg tablet (Bactrim DS) psyllium husk 3.4 gram/5.4 gram 1 tbsp PO DAILY 11/02/22 11/02/22 History oral powder (Metamucil) sertraline 25 mg tablet 50 mg PO DAILY 11/02/22 11/02/22 History Past Med/Surg History Medical History AV fistula Depression Hearing deficit Hx of basal cell carcinoma Hx of squamous cell carcinoma Hypercholesterolemia Obstructive sleep apnea Polycystic kidney Pre-syncope Prediabetes Primary hypertension Unintentional weight loss Surgical History H/O right inguinal hernia repair H/O transurethral resection of prostate History of cataract surgery History of colonoscopy S/P kidney transplant Status post Mohs surgery Family History Grandfather (Maternal) Cardiac disorder Grandmother (Paternal) Cardiac disorder Grandfather (Paternal) Cardiac disorder Mother Cardiac disorder Hypertension Grandmother (Maternal) Diabetes Brother Hypertension Sister Renal transplant, status post Hypertension Other No family history of adverse response to anesthesia Social History Smoking Status: Never smoker Tobacco Type: Cigarettes Second Hand Exposure: No; Do You Dip or Chew Tobacco: No; Hx Alcohol Use: Yes Alcohol type: beer Hx Substance Use: No Preferred Language: Albanian Communication Ability: Effective Visual Impairment: No Limitations Hearing Ability: Normal Plate Put In Worker Required: No Beliefs That Will Affect Care: None marital status: Current Living Situation: Personal Care Facility current occupational status: retired How many Children do You have: 2 Feels Safe at Home: Yes Safety Concerns: Feels Safe At This Time Diet: regular during the past year weight has: decreased > 10 lbs Dental Care, Regularly: No Seatbelt Use: always Sunscreen Use: Yes Assistive Devices: Glasses Physical Exam Physical Exam: Physical Exam: General: In no acute distress, stated age, poor hygiene but non-toxic appearing HEENT: Normocephalic, atraumatic, no scleral icterus, pupils around round, symmetrical, and reactive to light,dry mucus membranes, trachea midline, no thyromegaly Chest/Pulm: No respiratory distress, symmetrical chest expansion, clear breath sounds throughout Cardiac: RRR, no murmurs noted Abdomen: Negative for ascites and bruising, normoactive bowel sounds, soft, non-tender to palpation throughout Musculoskeletal: Symmetrical and without signs of acute trauma, upper and lower extremities with full ROM, no atrophy, spasticity, or flaccidity Extremities: Radial, dorsalis pedis, and posterior tibial pulses are intact and symmetrical, no edema noted in the BL LE's Skin: Warm, dry, no rashes , lesions, or scars noted Neuro: Alert and oriented to person and place only, no focal defects, CN II- XII tested and intact, baseline tremor noted Psych: No acute distress, calm and cooperative during the exam, no hallucinations during the exam Results & Data Results & Data Vital Signs (Past 12 Hours) Vital Signs Temp Pulse Pulse Resp BP BP Pulse Ox 11/02/22 16:31 81 11/02/22 16:47 82 21 99 11/02/22 16:26 98 11/02/22 16:21 83 14 149/83 H 98 11/02/22 11:27 36.8 C 80 18 128/72 97 O2 Del Method 11/02/22 16:31 11/02/22 16:47 Room Air 11/02/22 16:26 Room Air 11/02/22 16:21 Room Air 11/02/22 11:27 Room Air Laboratory Results Abnormal lab results 11/02/22 11/02/22 11/02/22 Range/Units 12:04 12:04 16:38 RBC 4.57 L (4.70-6.10) M/uL Hgb 13.6 L (14.0-18.0) g/dl Hct 40.2 L (42.0-52.0) % MPV 8.3 L (9.4-12.4) fL [place] # (Auto) 0.60 H (0.11-0.59) K/uL BUN 27 H (6-23) mg/dl Creatinine 2.31 H (0.6-1.4) mg/dl Urine Appearance Cloudy A (Clear) Urine Ketones Trace H (Negative) Urine Blood 1+ H (Negative) Urine Nitrite Positive A (Negative) Ur Leukocyte Esterase 1+ H (Negative) Urine WBC (Auto) 5-10 H (0-5) /hpf Urine RBC (Auto) 5-10 H (0-4) /hpf U Epithel Cells (Auto) 10-20 H (0-5) /lpf Urine Bacteria (Auto) 1+ H (Negative) Diagnostic Findings Chest X-Ray 11/02/22 11:32 XR chest 1V not portable CLINICAL HISTORY: Chest pain, nonspecific TECHNIQUE: Single frontal radiograph of the chest was obtained. Comparison: Comparison is made to chest radiograph 04/18/2022 FINDINGS: No lines and tubes are seen. The cardiomediastinal silhouette is normal. The lungs are clear. No evidence of pleural effusion or pneumothorax. IMPRESSION: No acute abnormalities and in particular no radiographic evidence of pneumonia. ACT 112: Negative or not required by law. Electronically signed by: Kevin Saleh M.D. 11/02/2022 1:[address] 11/02/22 11:[address] DOSE: 1250.21 mGy.cm HISTORY: Confusion. Fall. Trauma TECHNIQUE: Multiaxial CT images of the head were performed without the use of intravenous contrast. Automated exposure control was utilized for this study. A dose lowering technique was utilized adhering to the principles of ALARA. Comparison: Head CT 04/18/2022. Findings: A few partially opacified right ethmoid air cells. The mastoid air cells are clear. The calvarium and skull base are intact. There is no mass, hematoma, midline shift, acute infarct. White matter hypodensity is nonspecific but suggestive of microvascular ischemic change. The ventricles and sulci demonstrate mild age-related involutional changes. Impression: No significant change compared to the prior study. No acute intracranial abnorma lity. ACT 112: Negative or not required by law. Electronically signed by: Constantin Reeves M.D. 11/02/2022 2:03 PM Lumbar Spine X-Ray 11/02/22 11:32 XR lumbar spine min 4V routine HISTORY: 81 years-old Male Fall acute low back pain status post fall COMPARISON: Chest radiograph 12/14/2021 TECHNIQUE: 5 views of the lumbar spine FINDINGS: Moderate fecal retention. Vascular calcifications. The visualized appearance of the bones. Multilevel disc space narrowing, moderate to severe at L4-L5. Mild to moderate spondylotic spurring with moderate facet arthrosis. Chronic appearing mild T12 compression deformity. No acute fracture or subluxation identified. Distal abdominal aortic ectasia, 2.8 cm. IMPRESSION: Degenerative changes as above without acute fracture or subluxation identified. ACT 112: Negative or not required by law. The above report was generated using voice recognition software. It may contain grammatical, syntax or spelling errors. Electronically signed by: Escobar Ash M.D. 11/02/2022 1:32 PM ECG Additional Comments: Normal sinus rhythm Anterior infarct (cited on or before 02-NOV-2022) Abnormal ECG When compared with ECG of 18-APR-2022 15:27, No significant change was found Code Status & VTE Plan Code Status Full code VTE Prophylaxis Plan VTE Prophylaxis will be ordered: Yes Supervising Physician Co-Signing Physician Notes I personally saw and examined the patient. I verified all gutierrez points and agree with Hiram Cedillo PA-C with the following exceptions and/or additions: 81 year old male with renal transplant presents to the ER with increased weakness, hallucinations and confusion. O/E Alert, orientated to person and place, HS RRR, apical murmur, Chest CTAB, Abdo SNT, no CVA tenderness, no pronator drift, PERRL A/P Acute UTI - suspect cause of his acute deterioration, possibly poorly absorbing bactrim. Switch to IV ceftriaxone. Follow up repeat urine and blood cultures Renal transplant - consult nephrology, continue anti-rejection medications. Suspec Bactrim causing somewhat artificially elevated Cr from his baseline. PG Care Time/CCT Total # of Minutes Spent Total Time Spent with Patient: Total time spent is greater than 50% in coordination of care (as documented) at patient's floor/unit and/or counseling patient: Coding [place] [address] INT INP/OBS CARE 2/55MIN Patient Type Established Medical Decision Making Moderate Complexity Diagnoses UTI (urinary tract infection) N39.0 Kidney replaced by transplant Z94.0 Chronic indwelling Sherwood catheter Z97.8 Altered mental status R41.82 Primary hypertension I10 Falls W19.XXXA Hypercholesterolemia E78.00 Obstructive sleep apnea G47.33
[2022-11-02] MEDS ORDERED: PLASMA-LYTE A 1,000 ML IV ONE (18:26)
[2022-11-02] MEDS ORDERED: LIDOCAINE 5% 1 PATCH TD PRN (21:29)
[2022-11-02 21:43] LABS: Appearance Urine Cloudy (Clear); Bacteria Urine Automated 2+ (Negative); Bilirubin Urine Negative (Negative); Blood Urine Negative (Negative); Cast Urine Automated 0 /lpf (0-5); Color Urine Yellow; Glucose Urine UA Negative (Negative); Ketones Urine Negative (Negative); Leukocyte Esterase Urine Negative (Negative); Nitrite Urine Positive (Negative); Protein Urine Negative (Negative); RBC Urine Automated 0-4 /hpf (0-4); Specific Gravity Urine 1.008 (1.000-1.030); Urobilinogen Urine Negative (Negative); pH Urine 7.5 (4.5-7.5)
[2022-11-02] MEDS: ATORVASTATIN 10 MG TAB PO SCH (21:56)
[2022-11-02] MEDS: MYCOPHENOLATE MOFETIL 250 MG CAP PO SCH (21:56)
[2022-11-02] MEDS: BRIMONIDINE TARTRATE 0.2% 5ML OPB SCH (21:56)
[2022-11-02] MEDS: TACROLIMUS 1 MG CAP PO SCH (21:56)
[2022-11-02] MEDS ORDERED: HALOPERIDOL LACTATE 5 MG/ML 1 ML VIAL IV STA (22:51)
[2022-11-02] MEDS ORDERED: HALOPERIDOL LACTATE 5 MG/ML 1 ML VIAL IM STA (23:02)
[2022-11-03] MEDS: MICONAZOLE NITRATE POWDER 85 GM EXT SCH ×2 (05:51→19:38)
[2022-11-03] MEDS: MYCOPHENOLATE MOFETIL 250 MG CAP PO SCH ×2 (08:19→19:36)
[2022-11-03] MEDS: amLODIPine BESYLATE 5 MG TAB PO SCH (08:19)
[2022-11-03] MEDS: TACROLIMUS 1 MG CAP PO SCH ×2 (08:19→19:37)
[2022-11-03] MEDS: SERTRALINE HCL 50 MG TABLET PO SCH (08:19)
[2022-11-03] MEDS: ASPIRIN 81 MG ECTAB PO SCH (08:19)
--- NOTE | 2022-11-03 08:50 | Nephrology Consultation ---
Date of Consultation November 03, 2022 Assessment & Plan (1) Renal transplant recipient: * Recommend continuation of Tacrolimus 1 mg BID and MMF 250 mg BID * Baseline Cr 1.9-2.0 * Kidney function is stable at this time. Volume status and electrolyte balance are acceptable * Monitor PRP * No acute indication for renal US (2) UTI (urinary tract infection): * Urine culture w/ gram negative bacilli. Probable Enterococcus. Gilberto w/ Ceftriaxone therapy. Await culture results (3) Metabolic encephalopathy: * Alert and oriented to self, place at the time of my evaluation. 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 Information for the history is obtained from direct patient interview and review of the medical record. 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 The allograft was removed. He was on maintenance HD for a short period of time but later received a second transplant at [facility]. His immunosuppressive regimen has consisted of Tacrolimus 1 mg po BID and MMF 250 mg BID. His outpatient Drip Molder has been Dr. Yuan. Baseline Cr has been stable at 1.9. Mr. Marie was brought to [facility] 11/02/22 for evaluation of confusion, weakness and falls. EMD evaluation revealed normal head CT, CXR without infiltrate. Urinalysis was c/w UTI. Mr. Marie was administered Ceftriaxone and admitted to the hospital. Creatinine was mildly elevated at 2.3. Urine culture has returned + for Enterococcus. 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 [facility] Allergies Allergy/AdvReac Type Severity Reaction Status Date / Time lisinopril AdvReac Intermediate Cough Verified 11/02/22 16:27 Home Medications Medication Instructions Recorded Confirmed Type magnesium oxide 400 mg PO QPM 10/04/18 11/02/22 History cholecalciferol (vitamin D3) 10 400 units PO QAM 12/21/18 11/02/22 History mcg (400 unit) capsule mycophenolate mofetil 250 mg 250 mg PO BID #180 ea 01/18/22 11/02/22 Rx capsule aspirin 81 mg tablet,delayed 81 mg PO DAILY 04/18/22 11/02/22 History release calcium carbonate 200 mg calcium 200 mg PO BID 04/18/22 11/02/22 History (500 mg) chewable tablet (Tums) omega-3 fatty acids 1,000 mg 1,000 mg PO DAILY 04/18/22 11/02/22 History capsule tacrolimus 1 mg capsule, 1 mg PO BID Z94.0 04/18/22 11/02/22 History immediate-release atorvastatin 10 mg tablet 10 mg PO QPM #90 tabs 06/29/22 11/02/22 Rx acetaminophen 325 mg capsule 650 mg PO Q4H PRN FEVER <100.4/PAIN 06/30/22 11/02/22 History lidocaine 4 % topical patch 1 patch topical DAILY PRN pain #30 06/30/22 11/02/22 Rx (Salonpas (lidocaine)) ea amlodipine 5 mg tablet 5 mg PO DAILY #90 tabs 08/01/22 11/02/22 Rx potassium chloride 10 mEq 10 meq PO DAILY #90 tabs 08/12/22 11/02/22 Rx tablet,extended release brimonidine 0.2 % eye drops 1 drp OPB HS 08/31/22 11/02/22 History multivitamin with minerals 1 tab PO HS 08/31/22 11/02/22 History chlorthalidone 25 mg tablet 25 mg PO DAILY #30 tabs 09/07/22 11/02/22 Rx sulfamethoxazole 800 1 tab PO BID 7 days #14 tabs 10/27/22 11/02/22 Rx mg-trimethoprim 160 mg tablet (Bactrim DS) psyllium husk 3.4 gram/5.4 gram 1 tbsp PO DAILY 11/02/22 11/02/22 History oral powder (Metamucil) sertraline 25 mg tablet 50 mg PO DAILY 11/02/22 11/02/22 History Patient History Medical History AV fistula 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 Polycystic kidney Pre-syncope Prediabetes Primary hypertension Unintentional weight loss Surgical History H/O right inguinal hernia repair H/O transurethral resection of prostate History of cataract surgery RT/LEFT History of colonoscopy S/P kidney transplant 2006 at [facility] r/t polycystic kidney Status post Mohs surgery Family History Grandfather (Maternal) Cardiac disorder Grandmother (Paternal) Cardiac disorder Grandfather (Paternal) Cardiac disorder Mother Cardiac disorder Hypertension Grandmother (Maternal) Diabetes Brother Hypertension Sister Renal transplant, status post Hypertension Other No family history of adverse response to anesthesia Social History Smoking Status: Never smoker Tobacco Type: Cigarettes Second Hand Exposure: No; Do You Dip or Chew Tobacco: No; Hx Alcohol Use: Yes Alcohol type: beer Hx Substance Use: No Preferred Language: Frisian Communication Ability: Effective Visual Impairment: No Limitations Hearing Ability: Normal Senior Electrical Designer Required: No Beliefs That Will Affect Care: None marital status: Current Living Situation: Personal Care Facility current occupational status: retired How many Children do You have: 2 Feels Safe at Home: Yes Safety Concerns: Feels Safe At This Time Diet: regular during the past year weight has: decreased > 10 lbs Dental Care, Regularly: No Seatbelt Use: always Sunscreen Use: Yes Assistive Devices: Walker Review of Systems Constitutional: no fever Eyes: no problem reported Ear, Nose, Mouth, Throat: no problem reported Respiratory: no cough and no dyspnea Cardiovascular: no chest pain Gastrointestinal: no abdominal pain, no nausea, no vomiting and no diarrhea/loose stools Physical Exam Constitutional: not in distress Eyes: PERRL, conjunctivae normal, anicteric sclerae ENMT: external ear and nose normal, oropharynx normal Neck: trachea midline, no thyromegaly Respiratory: normal respiratory effort, lungs clear to auscultation Cardiovascular: RRR, no murmur, no edema Gastrointestinal (Abdomen): normal bowel sounds, soft, nontender, no hepatosplenomegaly renal allograft palpable in RLQ abdomen Skin: no rashes, warm and dry Neurologic: Speech / Cognition: normal speech Results & Data Vital Signs (Past 12 Hours) Vital Signs Temp Pulse Resp BP Pulse Ox O2 Del Method 11/03/22 07:17 36.7 C 86 18 144/67 H 95 Room Air 11/02/22 21:30 36.6 C 81 16 161/80 H 99 Room Air 11/02/22 21:03 Room Air Laboratory Results Laboratory Tests 11/02/22 11/03/22 11/03/22 21:06 12:01 12:01 WBC 6.55 Hgb 13.1 L Hct 38.6 L Plt Count 140 Sodium 135 L Potassium 4.0 Chloride 103 Carbon Dioxide 22 BUN 26 H Creatinine 2.00 H D Glucose 99 Calcium 9.4 Urine Color Yellow Urine Appearance Cloudy A Urine pH 7.5 Ur Specific [place]ada 1.008 Urine Protein Negative Urine Glucose (UA) Negative Urine Nitrite Positive A Urine Bacteria (Auto) 2+ H 11/02/22 Urine Cx: Gram negative bacilli, probably Enterococcus PG Care Time/CCT Total # of Minutes Spent Total Time Spent with Patient: Total time spent is greater than 50% in coordination of care (as documented) at patient's floor/unit and/or counseling patient: Coding Level of Care Code 92090 IN/OBS CONSULT LVL 4,60M Diagnoses Renal transplant recipient Z94.0 UTI (urinary tract infection) N39.0 Metabolic encephalopathy G93.41
[2022-11-03 12:30] LABS: Basophils # (auto) 0.02 K/uL (0.00-0.20); Basophils % (auto) 0.3 %; Eosinophils # (auto) 0.09 K/uL (0.00-0.50); Eosinophils % (auto) 1.4 %; Hematocrit (blood only) 38.6 % (42.0-52.0); Hemoglobin 13.1 g/dl (14.0-18.0); Immature Granulocytes # (auto) 0.02 K/uL (0.01-0.20); Immature Granulocytes % (auto) 0.3 %; Lymphocytes # (auto) 1.17 K/uL (1.20-3.40); Lymphocytes % (auto) 17.9 %; Mean Corpuscular Hemoglobin 29.7 pg (25.0-34.0); Mean Corpuscular Hgb Conc 33.9 g/dL (32.0-36.0); Mean Corpuscular Volume 87.5 fL (80.0-100.0); Mean Platelet Volume 8.3 fL (9.4-12.4); Monocytes # (auto) 0.56 K/uL (0.11-0.59); Monocytes % (auto) 8.5 %; Neutrophils # (auto) 4.69 K/uL (1.40-6.50); Neutrophils % (auto) 71.6 %; Platelet Count 140 K/uL (130-400); RDW Standard Deviation 41.7 fL (36.4-46.3); Red Blood Count 4.41 M/uL (4.70-6.10); White Blood Count 6.55 K/ul (4.8-10.8)
[2022-11-03 12:42] LABS: Calcium 9.4 mg/dl (8.6-10.3); Creatinine Clr Calc Pharmacy 33.3 ml/min; Est GFR (African American) 35.7 ml/min; Est GFR (Non-African American) 30.8 ml/min
[2022-11-03] MEDS ORDERED: cefTRIAXone SODIUM 2,000 MG in DEXTROSE 5% 50 ML IV SCH (16:00)
--- NOTE | 2022-11-03 16:37 | Hospitalist Progress Note ---
Date of Service November 03, 2022 Assessment & Plan (1) UTI (urinary tract infection): Plan: - acute complicated UTI related to indwelling Sherwood catheter in an immunocompromised host - clinically improving -Was treated with bactrim for known Klebsiella UTI from urine cultures resulting on 10/26 -His UTI was technically sensitive to Bactrim, however, due to his immunocompromised status it was likely not completely treated - continue ceftriaxone started on admission - received IV fluids -Monitor intake and output -DEANNA's for DVT PPX -HH diet with minced/moist texture -AM CBC, BMP (2) Kidney replaced by transplant: Plan: -Is on Tacrolimus and Cellcept, follows with [facility] Nephrology -Spoke with Nephrology, appreciate their assistance, they would prefer to continue immunosuppressants if the patient is stable 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 -Will continue both as he has been stable and is not septic -Will obtain Tacrolimus level on admission (3) Chronic indwelling Sherwood catheter: Plan: -Followed by Urology, has chronic sherwood with leg bag -Will have leg bag exchanged for larger bag and have repeat UA and culture drawn from new bag (4) Altered mental status: Plan: -Likely a combination of chronic decline and acute UTI with dehydration -No focal neuro defects, CT of the head negative -Continue to monitor for improvement with treatment of UTI (5) Primary hypertension: Plan: -Stable -Can continue amlodipine -Will hold Chlorthalidone to prevent further dehydration (6) Falls: Plan: -No acute trauma from fall earlier today -Fall precautions ordered -PT/OT consults placed for possible rehab placement if he remains weak (7) Hypercholesterolemia: Plan: -Continue statin (8) Obstructive sleep apnea: Plan: -Does not tolerate HS CPAP (9) Metabolic encephalopathy: Plan: secondary to UTI Likely improving Admission and Anticipated Discharge Date Admission Date: November 02, 2022 Subjective patient is feeling better overall. Is still slightly confused Review of Systems Review of Systems: All systems reviewed & are unremarkable except as noted in Subjective Physical Exam Physical Exam: General: Awake, conversant, pleasantly confused Heart: S1, S2/regular rate and rhythm, no murmur rubs or gallops Lungs: Clear to auscultation bilaterally. Normal effort Abdomen: Soft/nontender/nondistended. No hepatosplenomegaly Extremities: No clubbing/cyanosis. No edema Behavior: Appropriate, cooperative Results & Data Results & Data Vital Signs (Past 12 Hours) Vital Signs Temp Pulse Resp BP Pulse Ox O2 Del Method 11/03/22 15:12 36.7 C 105 H 17 149/77 H 96 Room Air 11/03/22 07:17 36.7 C 86 18 144/67 H 95 Room Air Laboratory Results Abnormal lab results 11/02/22 11/02/22 11/03/22 Range/Units 16:38 21:06 12:01 RBC 4.41 L (4.70-6.10) M/uL Hgb 13.1 L (14.0-18.0) g/dl Hct 38.6 L (42.0-52.0) % MPV 8.3 L (9.4-12.4) fL Lymph # (Auto) 1.17 L (1.20-3.40) K/uL Sodium (136-145) mmol/L BUN (6-23) mg/dl Creatinine (0.6-1.4) mg/dl Urine Appearance Cloudy A Cloudy A (Clear) Urine Ketones Trace H (Negative) Urine Blood 1+ H (Negative) Urine Nitrite Positive A Positive A (Negative) Ur Leukocyte Esterase 1+ H (Negative) Urine WBC (Auto) 5-10 H 10-30 H (0-5) /hpf Urine RBC (Auto) 5-10 H (0-4) /hpf U Epithel Cells (Auto) 10-20 H 10-20 H (0-5) /lpf Urine Bacteria (Auto) 1+ H 2+ H (Negative) 11/03/22 Range/Units 12:01 RBC (4.70-6.10) M/uL Hgb (14.0-18.0) g/dl Hct (42.0-52.0) % MPV (9.4-12.4) fL Lymph # (Auto) (1.20-3.40) K/uL Sodium 135 L (136-145) mmol/L BUN 26 H (6-23) mg/dl Creatinine 2.00 H D (0.6-1.4) mg/dl Urine Appearance (Clear) Urine Ketones (Negative) Urine Blood (Negative) Urine Nitrite (Negative) Ur Leukocyte Esterase (Negative) Urine WBC (Auto) (0-5) /hpf Urine RBC (Auto) (0-4) /hpf U Epithel Cells (Auto) (0-5) /lpf Urine Bacteria (Auto) (Negative) PG Care Time/CCT Total # of Minutes Spent Total Time Spent with Patient: Total time spent is greater than 50% in coordination of care (as documented) at patient's floor/unit and/or counseling patient: Coding Level of Care Code 19140 SUB INP/OBS CARE 2/35MIN Diagnoses UTI (urinary tract infection) N39.0 Kidney replaced by transplant Z94.0 Chronic indwelling Sherwood catheter Z97.8 Altered mental status R41.82 Primary hypertension I10 Falls W19.XXXA Hypercholesterolemia E78.00 Obstructive sleep apnea G47.33 Metabolic encephalopathy G93.41
--- NOTE | 2022-11-03 18:07 | Electrocardiogram Report ---
Test Reason : Blood Pressure : / mmHG Vent. Rate : 078 BPM Atrial Rate : 078 BPM P-R Int : 186 ms QRS Dur : 084 ms QT Int : 368 ms P-R-T Axes : 083 008 044 degrees QTc Int : 419 ms Normal sinus rhythm When compared with ECG of 18-APR-2022 15:27, No significant change was found Confirmed by Lion Hitchcock ([id number]) on 11/03/2022 6:06:29 PM Referred By: Confirmed By:Alex Hitchcock
[2022-11-03] MEDS: BRIMONIDINE TARTRATE 0.2% 5ML OPB SCH (19:37)
[2022-11-03] MEDS: ATORVASTATIN 10 MG TAB PO SCH (19:37)
[2022-11-04] MEDS ORDERED: PIPERACILLIN/TAZOBACTAM 4.5 GM in DEXTROSE 5% 100 ML IV ONE (07:45)
[2022-11-04] MEDS: SERTRALINE HCL 50 MG TABLET PO SCH (08:14)
[2022-11-04] MEDS: amLODIPine BESYLATE 5 MG TAB PO SCH (08:14)
[2022-11-04] MEDS: TACROLIMUS 1 MG CAP PO SCH ×2 (08:14→20:52)
[2022-11-04] MEDS: ASPIRIN 81 MG ECTAB PO SCH (08:14)
[2022-11-04] MEDS: MYCOPHENOLATE MOFETIL 250 MG CAP PO SCH ×2 (08:14→20:51)
[2022-11-04] MEDS: MICONAZOLE NITRATE POWDER 85 GM EXT SCH ×2 (08:15→20:50)
[2022-11-04 08:40] LABS: Basophils # (auto) 0.03 K/uL (0.00-0.20); Basophils % (auto) 0.4 %; Eosinophils # (auto) 0.04 K/uL (0.00-0.50); Eosinophils % (auto) 0.6 %; Hemoglobin 13.4 g/dl (14.0-18.0); Immature Granulocytes # (auto) 0.01 K/uL (0.01-0.20); Immature Granulocytes % (auto) 0.1 %; Lymphocytes # (auto) 1.33 K/uL (1.20-3.40); Lymphocytes % (auto) 19.4 %; Mean Corpuscular Hemoglobin 29.5 pg (25.0-34.0); Mean Corpuscular Hgb Conc 34.4 g/dL (32.0-36.0); Mean Corpuscular Volume 85.9 fL (80.0-100.0); Mean Platelet Volume 8.3 fL (9.4-12.4); Monocytes # (auto) 0.51 K/uL (0.11-0.59); Monocytes % (auto) 7.4 %; Neutrophils # (auto) 4.94 K/uL (1.40-6.50); Neutrophils % (auto) 72.1 %; Platelet Count 157 K/uL (130-400); RDW Coefficient of Variation 12.8 % (11.5-14.5); RDW Standard Deviation 39.8 fL (36.4-46.3); Red Blood Count 4.54 M/uL (4.70-6.10); White Blood Count 6.86 K/ul (4.8-10.8)
[2022-11-04 08:58] LABS: Calcium 9.4 mg/dl (8.6-10.3); Creatinine Clr Calc Pharmacy 39.9 ml/min; Est GFR (African American) 44.4 ml/min; Est GFR (Non-African American) 38.3 ml/min; Potassium 4.1 mmol/L (3.5-5.1)
--- NOTE | 2022-11-04 09:04 | Nephrology Progress Note ---
Date of Service November 04, 2022 Assessment & Plan (1) Renal transplant recipient: Plan: * Recommend continuation of Tacrolimus 1 mg BID and MMF 250 mg BID * Baseline Cr 1.9-2.0 * Kidney function is stable at this time. Volume status and electrolyte balance are acceptable * No further Nephrology intervention needed at this time. Will sign off. Please call if further assistance is needed (2) UTI (urinary tract infection): Plan: * Urine culture w/ Klebsiella * Now on Zosyn therapy (3) Metabolic encephalopathy: Plan: * Suspect encephalopathy related to infection Admission and Anticipated Discharge Date Admission Date: November 02, 2022 Subjective Mr. Marie was evaluated in his hospital room this morning. He was alert but confused and agitated. ROS could not be obtained. Review of Systems Review of Systems: Unobtainable due to cognitive status Physical Exam Constitutional: not in distress Eyes: PERRL, conjunctivae normal, anicteric sclerae ENMT: external ear and nose normal, oropharynx normal Neck: trachea midline, no thyromegaly Respiratory: normal respiratory effort, lungs clear to auscultation Cardiovascular: RRR, no murmur, no edema Gastrointestinal (Abdomen): normal bowel sounds, soft, nontender, no hepatosplenomegaly Skin: no rashes, warm and dry Neurologic: Speech / Cognition: normal speech Results & Data Vital Signs (Past 12 Hours) Vital Signs Temp Pulse Resp BP Pulse Ox O2 Del Method 11/04/22 06:56 36.7 C 88 18 143/68 H 97 Room Air Laboratory Results Laboratory Tests 11/04/22 11/04/22 08:17 08:17 WBC 6.86 Hgb 13.4 L Hct 39.0 L Plt Count 157 Sodium 134 L Potassium 4.1 Chloride 104 Carbon Dioxide 23 BUN 25 H Creatinine 1.67 H D Glucose 98 PG Care Time/CCT Total # of Minutes Spent Total Time Spent with Patient: Total time spent is greater than 50% in coordination of care (as documented) at patient's floor/unit and/or counseling patient: Coding Level of Care Code 41751 SUB INP/OBS CARE 3/50MIN Diagnoses Renal transplant recipient Z94.0 UTI (urinary tract infection) N39.0 Metabolic encephalopathy G93.41
--- NOTE | 2022-11-04 12:43 | Hospitalist Progress Note ---
Date of Service November 04, 2022 Assessment & Plan (1) UTI (urinary tract infection): Plan: - acute complicated UTI related to indwelling Sherwood catheter in an immunocompromised host - clinically improving -Was treated with bactrim for known Klebsiella UTI from urine cultures resulting on 10/26 -His UTI was technically sensitive to Bactrim, however, due to his immunocompromised status it was likely not completely treated - ceftriaxone was started on admission Urine culture growing Enterococcus and pansensitive Klebsiella Switched from IV ceftriaxone to IV Zosyn today -AM CBC, BMP (2) Kidney replaced by transplant: Plan: -Is on Tacrolimus and Cellcept, follows with [facility] [place] 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 -Will continue both as he has been stable and is not septic - tacrolimus level pending Renal function back to baseline (3) Chronic indwelling Sherwood catheter: Plan: -Followed by Urology, has chronic sherwood with leg bag -Will have leg bag exchanged for larger bag and have repeat UA and culture drawn from new bag (4) Altered mental status: Plan: -Likely a combination of chronic decline and acute UTI with dehydration -No focal neuro defects, CT of the head negative -Continue to monitor for improvement with treatment of UTI (5) Primary hypertension: Plan: -Stable -Can continue amlodipine -Will hold Chlorthalidone to prevent further dehydration (6) Falls: Plan: -No acute trauma from fall earlier today -Fall precautions ordered -PT/OT consults placed for possible rehab placement if he remains weak (7) Hypercholesterolemia: Plan: -Continue statin (8) Obstructive sleep apnea: Plan: -Does not tolerate HS CPAP (9) Metabolic encephalopathy: Plan: secondary to UTI Likely improving Patient is more confused today. Likely hospital-acquired delirium We will start him on Seroquel 25 mg p.o. nightly to help with healthy sleep-wake cycle Admission and Anticipated Discharge Date Admission Date: November 02, 2022 Subjective Patient is accompanied by his son in the room. Per nurse, patient is more confused and hallucinating today. Review of Systems Review of Systems: Unobtainable due to cognitive status Physical Exam Physical Exam: General: Awake, conversant, More confused today. AAO x1. He was able to recognize his son. He appears restless Heart: S1, S2/regular rate and rhythm, no murmur rubs or gallops Lungs: Clear to auscultation bilaterally. Normal effort Abdomen: Soft/nontender/nondistended. No hepatosplenomegaly Extremities: No clubbing/cyanosis. No edema Behavior: Appropriate, cooperative Results & Data Results & Data Vital Signs (Past 12 Hours) Vital Signs Temp Pulse Resp BP Pulse Ox O2 Del Method 11/04/22 06:56 36.7 C 88 18 143/68 H 97 Room Air Laboratory Results Abnormal lab results 11/04/22 11/04/22 Range/Units 08:17 08:17 RBC 4.54 L (4.70-6.10) M/uL Hgb 13.4 L (14.0-18.0) g/dl Hct 39.0 L (42.0-52.0) % MPV 8.3 L (9.4-12.4) fL Sodium 134 L (136-145) mmol/L BUN 25 H (6-23) mg/dl Creatinine 1.67 H D (0.6-1.4) mg/dl PG Care Time/CCT Total # of Minutes Spent Total Time Spent with Patient: Total time spent is greater than 50% in coordination of care (as documented) at patient's floor/unit and/or counseling patient: Coding Level of Care Code 98516 SUB INP/OBS CARE 2/35MIN Diagnoses UTI (urinary tract infection) N39.0 Kidney replaced by transplant Z94.0 Chronic indwelling Sherwood catheter Z97.8 Altered mental status R41.82 Primary hypertension I10 Falls W19.XXXA Hypercholesterolemia E78.00 Obstructive sleep apnea G47.33 Metabolic encephalopathy G93.41
[2022-11-04] MEDS ORDERED: PIPERACILLIN/TAZOBACTAM 4.5 GM in DEXTROSE 5% 100 ML IV SCH (14:00)
[2022-11-04] MEDS: AMPICILLIN/SULBACTAM SOD 3,000 MG in 0.9 % SODIUM CHLORIDE 100 ML IV SCH ×3 (15:42→22:44)
[2022-11-04] MEDS: BRIMONIDINE TARTRATE 0.2% 5ML OPB SCH (20:50)
[2022-11-04] MEDS: ATORVASTATIN 10 MG TAB PO SCH (20:50)
[2022-11-04] MEDS: QUEtiapine FUMARATE 25 MG TABLET PO SCH (20:51)
[2022-11-05] MEDS: AMPICILLIN/SULBACTAM SOD 3,000 MG in 0.9 % SODIUM CHLORIDE 100 ML IV SCH ×4 (04:48→23:32)
[2022-11-05 08:07] LABS: Basophils # (auto) 0.04 K/uL (0.00-0.20); Basophils % (auto) 0.5 %; Eosinophils # (auto) 0.11 K/uL (0.00-0.50); Eosinophils % (auto) 1.5 %; Hematocrit (blood only) 38.2 % (42.0-52.0); Hemoglobin 13.6 g/dl (14.0-18.0); Immature Granulocytes # (auto) 0.02 K/uL (0.01-0.20); Immature Granulocytes % (auto) 0.3 %; Lymphocytes # (auto) 1.59 K/uL (1.20-3.40); Lymphocytes % (auto) 21.1 %; Mean Corpuscular Hemoglobin 30.2 pg (25.0-34.0); Mean Corpuscular Hgb Conc 35.6 g/dL (32.0-36.0); Mean Corpuscular Volume 84.9 fL (80.0-100.0); Mean Platelet Volume 8.5 fL (9.4-12.4); Monocytes # (auto) 0.69 K/uL (0.11-0.59); Monocytes % (auto) 9.2 %; Neutrophils # (auto) 5.08 K/uL (1.40-6.50); Neutrophils % (auto) 67.4 %; Platelet Count 152 K/uL (130-400); RDW Coefficient of Variation 13.2 % (11.5-14.5); RDW Standard Deviation 41.1 fL (36.4-46.3); White Blood Count 7.53 K/ul (4.8-10.8)
[2022-11-05 08:26] LABS: BUN Creatinine Ratio 18.5 (10-20); Calcium 9.2 mg/dl (8.6-10.3); Creatinine Clr Calc Pharmacy 33.9 ml/min; Est GFR (African American) 38.3 ml/min; Potassium 3.8 mmol/L (3.5-5.1)
[2022-11-05] MEDS: MYCOPHENOLATE MOFETIL 250 MG CAP PO SCH ×2 (08:45→20:28)
[2022-11-05] MEDS: SERTRALINE HCL 50 MG TABLET PO SCH (08:45)
[2022-11-05] MEDS: TACROLIMUS 1 MG CAP PO SCH ×2 (08:45→20:29)
[2022-11-05] MEDS: amLODIPine BESYLATE 5 MG TAB PO SCH (08:45)
[2022-11-05] MEDS: ASPIRIN 81 MG ECTAB PO SCH (08:45)
--- NOTE | 2022-11-05 09:57 | Neurology Consultation ---
Date of Consultation November 05, 2022 Assessment & Plan (1) Metabolic encephalopathy: (2) UTI (urinary tract infection): (3) Renal transplant recipient: (4) Myoclonus: Plan 81-year-old male with mild metabolic encephalopathy and myoclonic jerking in the context of urinary tract infection, history of renal transplant. I also suspect an underlying dementia with evidence of generalized atrophy and moderate chronic small vessel ischemic disease on previous brain MRI. No acute process on recent CT of the head. I do not think the observed myoclonic movements and altered mental status are due to seizure activity. Does not require an EEG at this time. I expect his encephalopathy and myoclonus to improve with continued supportive medical care. However, if the myoclonus persists, would consider a trial of a low-dose of levetiracetam, 250 mg/day. I would not initiate tr eatment for suspected underlying dementia at this time. No further immediate recommendations. History of Present Illness Reason for Consultation: seizure like activity Requesting Physician: Ulices Attending Physician: America Elena MD History of Present Illness The patient is a 81-year-old male [facility] who presented to the emergency department on November 02, 3 days ago, for further assessment of confusion, and hallucinations in the context of treatment with Bactrim for a urinary tract infection. Past medical history notable for renal transplant, on tacrolimus and CellCept. He has been observed to have periodic jerking movements of the limbs I will sometimes stare and have difficulty following commands. I did observe this behavior at bedside this morning which seems more consistent with rigors, and or myoclonic jerking. He did have a CT of the head completed November 02 which was negative for hemorrhage or acute process. There was evidence of atrophy and chronic small vessel ischemic disease, as well as calcifications within the basal ganglia bilaterally. I did independently review these images. I see that he had a brain MRI completed at [facility] in March 2022 in the context of altered mental status. There was no acute process at that time, again noting moderate atrophy and chronic small vessel ischemic disease. I independently reviewed these images as well. The patient is a limited historian currently, likely due to a mild delirium and probable baseline dementia. Allergies Allergy/AdvReac Type Severity Reaction Status Date / Time lisinopril AdvReac Intermediate Cough Verified 11/02/22 16:27 Home Medications Medication Instructions Recorded Confirmed Type magnesium oxide 400 mg PO QPM 10/04/18 11/02/22 History cholecalciferol (vitamin D3) 10 400 units PO QAM 12/21/18 11/02/22 History mcg (400 unit) capsule mycophenolate mofetil 250 mg 250 mg PO BID #180 ea 01/18/22 11/02/22 Rx capsule aspirin 81 mg tablet,delayed 81 mg PO DAILY 04/18/22 11/02/22 History release calcium carbonate 200 mg calcium 200 mg PO BID 04/18/22 11/02/22 History (500 mg) chewable tablet (Tums) omega-3 fatty acids 1,000 mg 1,000 mg PO DAILY 04/18/22 11/02/22 History capsule tacrolimus 1 mg capsule, 1 mg PO BID Z94.0 04/18/22 11/02/22 History immediate-release atorvastatin 10 mg tablet 10 mg PO QPM #90 tabs 06/29/22 11/02/22 Rx acetaminophen 325 mg capsule 650 mg PO Q4H PRN FEVER <100.4/PAIN 06/30/22 11/02/22 History lidocaine 4 % topical patch 1 patch topical DAILY PRN pain #30 06/30/22 11/02/22 Rx (Salonpas (lidocaine)) ea amlodipine 5 mg tablet 5 mg PO DAILY #90 tabs 08/01/22 11/02/22 Rx potassium chloride 10 mEq 10 meq PO DAILY #90 tabs 08/12/22 11/02/22 Rx tablet,extended release brimonidine 0.2 % eye drops 1 drp OPB HS 08/31/22 11/02/22 History multivitamin with minerals 1 tab PO HS 08/31/22 11/02/22 History chlorthalidone 25 mg tablet 25 mg PO DAILY #30 tabs 09/07/22 11/02/22 Rx sulfamethoxazole 800 1 tab PO BID 7 days #14 tabs 10/27/22 11/02/22 Rx mg-trimethoprim 160 mg tablet (Bactrim DS) psyllium husk 3.4 gram/5.4 gram 1 tbsp PO DAILY 11/02/22 11/02/22 History oral powder (Metamucil) sertraline 25 mg tablet 50 mg PO DAILY 11/02/22 11/02/22 History Patient History Medical History 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 Polycystic kidney Pre-syncope Prediabetes Primary hypertension Unintentional weight loss Surgical History H/O right inguinal hernia repair H/O transurethral resection of prostate History of cataract surgery RT/LEFT History of colonoscopy S/P kidney transplant 2006 at [facility] [place] r/t polycystic kidney Status post Mohs surgery Family History Grandfather (Maternal) Cardiac disorder Grandmother (Paternal) Cardiac disorder Grandfather (Paternal) Cardiac disorder Mother Cardiac disorder Hypertension Grandmother (Maternal) Diabetes Brother Hypertension Sister Renal transplant, status post Hypertension Other No family history of adverse response to anesthesia Social History Smoking Status: Never smoker Tobacco Type: Cigarettes Second Hand Exposure: No; Do You Dip or Chew Tobacco: No; Hx Alcohol Use: Yes Alcohol type: beer Hx Substance Use: No Preferred Language: Malagasy Communication Ability: Effective Visual Impairment: No Limitations Hearing Ability: Normal Strike Planning Applications Required: No Beliefs That Will Affect Care: None marital status: Current Living Situation: Personal Care Facility current occupational status: retired How many Children do You have: 2 Feels Safe at Home: Yes Safety Concerns: Feels Safe At This Time Diet: regular during the past year weight has: decreased > 10 lbs Dental Care, Regularly: No Seatbelt Use: always Sunscreen Use: Yes Assistive Devices: Mechanical Lift, Walker and Wheelchair Review of Systems Review of Systems: Unobtainable due to cognitive status Exam (Neuro) Constitutional: well developed, + altered mental status and + frail appearing Eyes: normal visual martin by confrontation, PERRL and EOM intact bilaterally Neurologic: Oriented to:: negative Person, Place or Time Memory: negative Short Term Intact or Remote Intact Attention: negative Span Intact or Concentration Intact Speech Fluency: Verbal Skills Limited and Other (Minimal speech) Fund of Knowledge: Vocabulary (Able to follow simple commands) Cranial Nerves: Normal II, III, IV, , V, VII, VIII, IX, X, XI and XII Motor Strength: Normal Lower Extremities and Normal Upper Extremities; negative Pronator Drift or Hemiparesis Motor Tone: Normal Lower Extremities and Normal Upper Extremities Muscle Bulk/Involuntary Movements: Muscle Atrophy; negative Rest Tremor (Arm) or Head Tremor Sensation: Light Touch Intact and Proprioception Intact Coordination: negative Finger-Nose Abnormal Deep Tendon Reflexes: Rt Triceps: 2+, Lt Triceps: 2+, Rt Biceps: 2+, Lt Biceps: 2+, Rt Brachioradialis: 2+, Lt Brachioradialis: 2+, Rt Patellar: 2+, Lt Patellar: 2+, Rt Ankle: 1+ and Lt Ankle: 1+ Special Tests: negative Babinski Present Details: Gait cannot be tested. Patient exhibits intermittent rigors or myoclonic jerking movements of the upper limbs. He is inattentive but able to follow simple commands. Results & Data Vital Signs (Past 12 Hours) Vital Signs Temp Pulse Pulse Resp BP Pulse Ox O2 Del Method 11/05/22 07:21 37.7 C H 90 17 131/65 95 Room Air 11/05/22 07:16 88 11/05/22 03:45 37.2 C 94 H 18 124/72 92 Room Air 11/04/22 23:33 37.6 C H 93 H 16 137/51 L 93 Room Air 11/04/22 23:12 102 H Laboratory Results WBC 7.53, hemoglobin 13.6, hematocrit 38.2, platelet count 152, sodium 137, potassium 3.8, BUN 35, creatinine 1.89, glucose 83, calcium 9.2. A vitamin B12 level from March was 254. A thiamine level was 26. A TSH at that time was 0.948. Diagnostic Findings CT of the head and previous brain MRI are as described in the HPI. Electrocardiogram reveals a normal sinus rhythm. An echocardiogram completed this past March revealed mild concentric LVH, normal left ventricular systolic function, borderline left atrial enlargement. Coding Level of Care Code 71158 INT INP/OBS CARE 2MIN Diagnoses Metabolic encephalopathy G93.41 UTI (urinary tract infection) N39.0 Renal transplant recipient Z94.0 Myoclonus G25.3
[2022-11-05] MEDS: MICONAZOLE NITRATE POWDER 85 GM EXT SCH ×2 (11:24→20:26)
--- NOTE | 2022-11-05 12:06 | Hospitalist Progress Note ---
Date of Service November 05, 2022 Assessment & Plan (1) UTI (urinary tract infection): Plan: - acute complicated UTI related to indwelling Sherwood catheter in an immunocompromised host -Was treated with bactrim for known Klebsiella UTI from urine cultures resulting on 10/26 -His UTI was technically sensitive to Bactrim, however, due to his immunocompromised status it was likely not completely treated - ceftriaxone was started on admission Urine culture growing pansensitive Enterococcus and pansensitive Klebsiella Switched from IV ceftriaxone to IV Unasyn -AM CBC, BMP (2) Kidney replaced by transplant: Plan: -Is on Tacrolimus and Cellcept, follows with [facility] Nephrology 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 -Will continue both as he has been stable and is not septic Renal function back to baseline (3) Chronic indwelling Sherwood catheter: Plan: -Followed by Urology, has chronic sherwood with leg bag -Will have leg bag exchanged for larger bag and have repeat UA and culture drawn from new bag (4) Altered mental status: Plan: -Likely a combination of chronic decline and acute UTI with dehydration -No focal neuro defects, CT of the head negative -Continue to monitor for improvement with treatment of UTI (5) Primary hypertension: Plan: -Stable -Can continue amlodipine -Will hold Chlorthalidone to prevent further dehydration (6) Falls: Plan: -No acute trauma from fall earlier today -Fall precautions ordered -PT/OT consults placed for possible rehab placement if he remains weak (7) Hypercholesterolemia: Plan: -Continue statin (8) Obstructive sleep apnea: Plan: -Does not tolerate HS CPAP (9) Metabolic encephalopathy: Plan: Initially secondary to UTI Was improving but later on became more confused starting yesterday and went into hospital-acquired delirium Patient was having some shaking tremors and nursing was concerned for the possibility of a seizure. Neurology consulted. This is not a seizure. Continue Seroquel 25 mg p.o. nightly to help with healthy sleep-wake cycle Add melatonin Admission and Anticipated Discharge Date Admission Date: November 02, 2022 Subjective Patient is slightly less tremulous today than yesterday. He is trying to doze off to sleep but gets startled and starts shaking. The nurse could not tell me if he slept through the night. He was started on Seroquel to treat the hospital-acquired delirium. Unclear if it has had any effect, but he is less tremulous today compared to yesterday. Review of Systems Review of Systems: Unobtainable due to reduced consciousness Physical Exam Physical Exam: General: Patient is tremulous but less so compared to yesterday. He is dozing off to sleep but gets startled and starts shaking Heart: S1, S2/regular rate and rhythm, no murmur rubs or gallops Lungs: Clear to auscultation bilaterally. Normal effort Abdomen: Soft/nontender/nondistended. No hepatosplenomegaly Extremities: No clubbing/cyanosis. No edema Behavior: Unable to assess Results & Data Results & Data Vital Signs (Past 12 Hours) Vital Signs Temp Pulse Pulse Resp BP Pulse Ox O2 Del Method 11/05/22 07:21 37.7 C H 90 17 131/65 95 Room Air 11/05/22 07:16 88 11/05/22 03:45 37.2 C 94 H 18 124/72 92 Room Air Laboratory Results Abnormal lab results 11/02/22 11/05/22 11/05/22 Range/Units 18:21 07:24 07:24 RBC 4.50 L (4.70-6.10) M/uL Hgb 13.6 L (14.0-18.0) g/dl Hct 38.2 L (42.0-52.0) % MPV 8.5 L (9.4-12.4) fL [place]ascock # (Auto) 0.69 H (0.11-0.59) K/uL BUN 35 H (6-23) mg/dl Creatinine 1.89 H (0.6-1.4) mg/dl Tacrolimus 4.3 L mcg/L PG Care Time/CCT Total # of Minutes Spent Total Time Spent with Patient: Total time spent is greater than 50% in coordination of care (as documented) at patient's floor/unit and/or counseling patient: Coding Level of Care Code 65549 SUB INP/OBS CARE 235MIN Diagnoses UTI (urinary tract infection) N39.0 Kidney replaced by transplant Z94.0 Chronic indwelling Sherwood catheter Z97.8 Altered mental status R41.82 Primary hypertension I10 Falls W19.XXXA Hypercholesterolemia E78.00 Obstructive sleep apnea G47.33 Metabolic encephalopathy G93.41
[2022-11-05] MEDS ORDERED: MELATONIN 3 MG TAB PO PRN (12:49)
[2022-11-05] MEDS: BRIMONIDINE TARTRATE 0.2% 5ML OPB SCH (20:26)
[2022-11-05] MEDS: QUEtiapine FUMARATE 25 MG TABLET PO SCH (20:28)
[2022-11-05] MEDS: ATORVASTATIN 10 MG TAB PO SCH (20:29)
[2022-11-06] MEDS: AMPICILLIN/SULBACTAM SOD 3,000 MG in 0.9 % SODIUM CHLORIDE 100 ML IV SCH ×4 (05:20→23:52)
[2022-11-06] MEDS: MYCOPHENOLATE MOFETIL 250 MG CAP PO SCH ×2 (08:16→19:33)
[2022-11-06] MEDS: TACROLIMUS 1 MG CAP PO SCH ×2 (08:16→19:31)
[2022-11-06] MEDS: MICONAZOLE NITRATE POWDER 85 GM EXT SCH ×2 (08:16→19:33)
[2022-11-06] MEDS: SERTRALINE HCL 50 MG TABLET PO SCH (08:16)
[2022-11-06] MEDS: amLODIPine BESYLATE 5 MG TAB PO SCH (08:17)
[2022-11-06] MEDS: ASPIRIN 81 MG ECTAB PO SCH (08:17)
[2022-11-06 08:48] LABS: BUN Creatinine Ratio 23.3 (10-20); Creatinine Clr Calc Pharmacy 40.7 ml/min; Est GFR (African American) 47.2 ml/min; Est GFR (Non-African American) 40.7 ml/min; Potassium 3.6 mmol/L (3.5-5.1)
--- NOTE | 2022-11-06 12:27 | Hospitalist Progress Note ---
Date of Service November 06, 2022 Assessment & Plan (1) UTI (urinary tract infection): Plan: - acute complicated UTI related to indwelling Sherwood catheter in an immunocompromised host -Was treated with bactrim for known Klebsiella UTI from urine cultures resulting on 10/26 -His UTI was technically sensitive to Bactrim, however, due to his immunocompromised status it was likely not completely treated - ceftriaxone was started on admission Urine culture growing pansensitive Enterococcus and pansensitive Klebsiella Switched from IV ceftriaxone to IV Unasyn on 11/04 -AM BMP (2) Kidney replaced by transplant: Plan: -Is on Tacrolimus and Cellcept, follows with [facility] [place] Nephrology Dining Car Server on board -Will continue both as he has been stable and is not septic Renal function back to baseline (3) Chronic indwelling Sherwood catheter: Plan: -Followed by Urology, has chronic sherwood with leg bag (4) Altered mental status: Plan: -Likely a combination of chronic decline and acute UTI with dehydration -No focal neuro defects, CT of the head negative -Continue to monitor for improvement with treatment of UTI (5) Primary hypertension: Plan: -Stable -Can continue amlodipine -Will hold Chlorthalidone to prevent further dehydration (6) Falls: Plan: -No acute trauma from fall earlier today -Fall precautions ordered -PT/OT consults placed for possible rehab placement if he remains weak (7) Hypercholesterolemia: Plan: -Continue statin (8) Obstructive sleep apnea: Plan: -Does not tolerate HS CPAP (9) Metabolic encephalopathy: Plan: Initially secondary to UTI Was improving but later on became more confused starting 11/04 and went into hospital-acquired delirium Patient was having some shaking tremors and nursing was concerned for the possibility of a seizure. Neurology consulted. This is not a seizure. Continue Seroquel 25 mg p.o. nightly to help with healthy sleep-wake cycle Added melatonin Clinically improved today 11/06. Less tremulous. More awake and responsive. Still confused Admission and Anticipated Discharge Date Admission Date: November 02, 2022 Subjective patient slept well through the night per nurse. This morning he is more awake and responsive. He is able to talk but still confused. Review of Systems Review of Systems: Unobtainable due to cognitive status Physical Exam Physical Exam: General: patient is awake, talking. Pleasantly confused. Much less tremulous today. not restless and jittery today. Heart: S1, S2/regular rate and rhythm, no murmur rubs or gallops Lungs: Clear to auscultation bilaterally. Normal effort Abdomen: Soft/nontender/nondistended. No hepatosplenomegaly Extremities: No clubbing/cyanosis. No edema Behavior: appropriate, cooperative Results & Data Results & Data Vital Signs (Past 12 Hours) Vital Signs Temp Pulse Pulse Resp BP BP Pulse Ox 11/06/22 08:10 36.5 C 81 18 135/68 97 11/06/22 07:05 84 11/06/22 04:02 36.5 C 84 18 159/84 H 96 O2 Del Method 11/06/22 08:10 Room Air 11/06/22 07:05 11/06/22 04:02 Room Air Laboratory Results Abnormal lab results 11/02/22 11/06/22 Range/Units 18:21 08:11 Chloride 108 H (98-107) mmol/L BUN 37 H (6-23) mg/dl Creatinine 1.59 H D (0.6-1.4) mg/dl BUN/Creatinine Ratio 23.3 H (10-20) Tacrolimus 4.3 L mcg/L PG Care Time/CCT Total # of Minutes Spent Total Time Spent with Patient: Total time spent is greater than 50% in coordination of care (as documented) at patient's floor/unit and/or counseling patient: Coding Level of Care Code 13062 SUB INP/OBS CARE 2/35MIN Diagnoses UTI (urinary tract infection) N39.0 Kidney replaced by transplant Z94.0 Chronic indwelling Sherwood catheter Z97.8 Altered mental status R41.82 Primary hypertension I10 Falls W19.XXXA Hypercholesterolemia E78.00 Obstructive sleep apnea G47.33 Metabolic encephalopathy G93.41
[2022-11-06] MEDS: QUEtiapine FUMARATE 25 MG TABLET PO SCH (19:32)
[2022-11-06] MEDS: ATORVASTATIN 10 MG TAB PO SCH (19:32)
[2022-11-06] MEDS: BRIMONIDINE TARTRATE 0.2% 5ML OPB SCH (19:33)
[2022-11-07] MEDS: AMPICILLIN/SULBACTAM SOD 3,000 MG in 0.9 % SODIUM CHLORIDE 100 ML IV SCH ×4 (06:00→23:30)
[2022-11-07] MEDS: ASPIRIN 81 MG ECTAB PO SCH (08:29)
[2022-11-07] MEDS: MYCOPHENOLATE MOFETIL 250 MG CAP PO SCH ×2 (08:29→21:15)
[2022-11-07] MEDS: TACROLIMUS 1 MG CAP PO SCH ×2 (08:29→21:15)
[2022-11-07] MEDS: SERTRALINE HCL 50 MG TABLET PO SCH (08:29)
[2022-11-07] MEDS: amLODIPine BESYLATE 5 MG TAB PO SCH (08:29)
[2022-11-07 08:43] LABS: BUN Creatinine Ratio 22.2 (10-20); Est GFR (African American) 39.3 ml/min; Est GFR (Non-African American) 33.9 ml/min; Potassium 3.4 mmol/L (3.5-5.1)
[2022-11-07] MEDS: MICONAZOLE NITRATE POWDER 85 GM EXT SCH ×2 (08:57→21:18)
--- NOTE | 2022-11-07 17:16 | Hospitalist Progress Note ---
Date of Service November 07, 2022 Assessment & Plan (1) UTI (urinary tract infection): Plan: - acute complicated UTI related to indwelling Sherwood catheter in an immunocompromised host -Was treated with bactrim for known Klebsiella UTI from urine cultures resulting on 10/26 -probably worsened condition due to Enterococcus UTI. Presented with low grade fever and acute encephalopathy -ceftriaxone was started on admission Urine culture growing pansensitive Enterococcus and pansensitive Klebsiella--> now on Unasyn since 11/04 which will cover both--> plan to switch to po Augmentin on discharge for total of 10 days of treatment - requesting repeat UA to ensure UTI treated adequately--> UA 11/07 without evidence of infection -blood cxs remain NGTD -follow CBC in AM (2) Kidney replaced by transplant: Plan: -Is on Tacrolimus and Cellcept, follows with [facility] [place] Shirring Machine Operator consult appreciated-have signed off -Will continue both as he has been stable and is not septic Renal function back to baseline but 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 -follow BMP in AM (3) Chronic indwelling Sherwood catheter: Plan: -Followed by Urology, has chronic sherwood with leg bag -will need to exchange Sherwood catheter before discharge due to UTI (4) Altered mental status: Plan: Acute metabolic encephalopathy-much improved CT head negative on admission -Likely a combination of chronic decline and acute UTI with dehydration, TUNG -No focal neuro defects, CT of the head negative -had myoclonic jerks and hallucinations now resolved -continue Seroquel -Appreciate Neuro consult-no seizures suspected (5) Primary hypertension: Plan: -Stable -Can continue amlodipine -Will continue to hold Chlorthalidone to prevent further dehydration (6) Falls: Plan: -No acute trauma from fall prior to admission -Fall precautions ordered -PT/OT recommend rehab placement (7) Hypercholesterolemia: Plan: -Continue statin (8) Obstructive sleep apnea: Plan: -Does not tolerate HS CPAP Plan DVT proph-add Lovenox SQ Dispo-dc to rehab tomorrow discussed care with on phone Admission and Anticipated Discharge Date Admission Date: November 02, 2022 Anticipated date of discharge: 11/08/22 Subjective Pt was taking a nap when I saw him in the afternoon but woke up briefly, denied pain. Said he would like to sleep more. RN reports pt is doing well today, no n oted myoclonic jerks, is conversational, and feeding himself. Physical Exam Constitutional: WD/WN, vitals as above Respiratory: normal respiratory effort, lungs clear to auscultation Cardiovascular: RRR, no murmur, no edema Gastrointestinal (Abdomen): normal bowel sounds, soft, nontender, no hepatosplenomegaly Results & Data Results & Data Vital Signs (Past 12 Hours) Vital Signs Temp Pulse Resp BP BP Pulse Ox O2 Del Method 11/07/22 15:45 36.5 C 73 17 130/72 98 Room Air 11/07/22 12:02 36.5 C 76 19 127/67 96 Room Air 11/07/22 08:26 36.2 C L 71 19 127/72 97 Room Air PG Care Time/CCT Total # of Minutes Spent Total Time Spent with Patient: Total time spent is greater than 50% in coordination of care (as documented) at patient's floor/unit and/or counseling patient: Coding Level of Care Code 09624 SUB INP/OBS CARE 2/35MIN Diagnoses UTI (urinary tract infection) N39.0 Kidney replaced by transplant Z94.0 Chronic indwelling Sherwood catheter Z97.8 Altered mental status R41.82 Primary hypertension I10 Falls W19.XXXA Hypercholesterolemia E78.00 Obstructive sleep apnea G47.33
[2022-11-07 18:50] LABS: Appearance Urine Clear (Clear); Bilirubin Urine Negative (Negative); Blood Urine Negative (Negative); Color Urine Dark Yellow; Glucose Urine UA Negative (Negative); Ketones Urine Trace (Negative); Leukocyte Esterase Urine Negative (Negative); Nitrite Urine Negative (Negative); Protein Urine Negative (Negative); Specific Gravity Urine 1.032 (1.000-1.030); Urobilinogen Urine Negative (Negative); pH Urine 5.5 (4.5-7.5)
[2022-11-07] MEDS: ATORVASTATIN 10 MG TAB PO SCH (21:15)
[2022-11-07] MEDS: BRIMONIDINE TARTRATE 0.2% 5ML OPB SCH (21:15)
[2022-11-07] MEDS: QUEtiapine FUMARATE 25 MG TABLET PO SCH (21:15)
[2022-11-07] MEDS ORDERED: ENOXAPARIN INJ 30 MG/0.3 ML SYR SQ SCH (21:30)
[2022-11-08 07:00] LABS: Basophils # (auto) 0.04 K/uL (0.00-0.20); Basophils % (auto) 0.8 %; Eosinophils # (auto) 0.13 K/uL (0.00-0.50); Eosinophils % (auto) 2.7 %; Hematocrit (blood only) 36.6 % (42.0-52.0); Hemoglobin 12.5 g/dl (14.0-18.0); Immature Granulocytes # (auto) 0.01 K/uL (0.01-0.20); Immature Granulocytes % (auto) 0.2 %; Lymphocytes # (auto) 1.33 K/uL (1.20-3.40); Lymphocytes % (auto) 27.3 %; Mean Corpuscular Hemoglobin 29.5 pg (25.0-34.0); Mean Corpuscular Hgb Conc 34.2 g/dL (32.0-36.0); Mean Corpuscular Volume 86.3 fL (80.0-100.0); Mean Platelet Volume 8.7 fL (9.4-12.4); Monocytes # (auto) 0.35 K/uL (0.11-0.59); Monocytes % (auto) 7.2 %; Neutrophils # (auto) 3.01 K/uL (1.40-6.50); Neutrophils % (auto) 61.8 %; Platelet Count 133 K/uL (130-400); RDW Coefficient of Variation 13.2 % (11.5-14.5); RDW Standard Deviation 41.1 fL (36.4-46.3); Red Blood Count 4.24 M/uL (4.70-6.10); White Blood Count 4.87 K/ul (4.8-10.8)
[2022-11-08] MEDS: AMPICILLIN/SULBACTAM SOD 3,000 MG in 0.9 % SODIUM CHLORIDE 100 ML IV SCH (07:26)
[2022-11-08 07:44] LABS: BUN Creatinine Ratio 23.6 (10-20); Calcium 8.7 mg/dl (8.6-10.3); Creatinine Clr Calc Pharmacy 39.2 ml/min; Est GFR (African American) 45.1 ml/min; Est GFR (Non-African American) 38.9 ml/min; Potassium 3.1 mmol/L (3.5-5.1)
[2022-11-08] MEDS: ASPIRIN 81 MG ECTAB PO SCH (08:50)
[2022-11-08] MEDS: amLODIPine BESYLATE 5 MG TAB PO SCH (08:50)
[2022-11-08] MEDS: TACROLIMUS 1 MG CAP PO SCH (08:51)
[2022-11-08] MEDS: SERTRALINE HCL 50 MG TABLET PO SCH (08:51)
[2022-11-08] MEDS: MICONAZOLE NITRATE POWDER 85 GM EXT SCH (08:51)
[2022-11-08] MEDS: MYCOPHENOLATE MOFETIL 250 MG CAP PO SCH (08:51)
[2022-11-08] MEDS ORDERED: POTASSIUM CHLORIDE CRTAB 20 MEQ TABCR PO STA (10:20)
[2022-11-08] MEDS ORDERED: AMPICILLIN/SULBACTAM SOD 3,000 MG in 0.9 % SODIUM CHLORIDE 100 ML IV SCH (14:00)
--- NOTE | 2022-11-08 14:17 | Discharge Summary ---
Discharge Summary Date of Service November 08, 2022 Notes For Next Care Provider Medication Changes From Visit Augmentin 1 tab p.o. twice daily x5 more days Discontinue chlorthalidone Admission HPI Per Admitting Provider Kevin is a 81 yo M with a history of HTN, Depression, Mild cognitive impairment, DUSTY, Polycystic kidney disease s/p Renal Transplant (On cellcept and tacrolimus) follows with [facility] [place] Nephrology, recurrent urine retention who presented to the [facility] ED on 11/02 from [facility] with complaints of increased confusion and multiple falls. Vitals remained stable in the ED. Labs were significant for Cr of 2.31 (baseline as of July was 1.9), and UA which appears to still be infected. CT of the head, xray of the chest, and cxray of the lumbar spine were negative for acute findings. Prior to admission the patient was given a dose of ceftriaxone and 1L NSS. Per chart review, the patient was seen at his PCP's office on 10/26 and UA was concerning for UTI. He was started on Bactrim, son confirmed this was completed. Cultures from the UA grew Klebsiella intermediately sensitive to Macrobid but otherwise pansensitive. At the time of the exam the patient was sitting in bed in no acute distress with his Son sitting bedside, history was mainly obtained from his son. The patient's son confirms that today was the last day of the patient's recent Bactrim prescription. Over the past few weeks the patient has had on ongoing clinical and cognitive decline. His son states that the patient now requires more assistance than can be provided at [facility]. The patient has also been having hallucinations and increased confusion over this time. The patient's son confirms that the patient had a fall earlier today at [facility] but he did not hit his head. The patient denies complaints or pain at this time. We discussed code status, the patient and his son would like him to be a full code for now. They will be working on updating his Living Will in the near future but need to have further discussions before making any changes. Please refer to Dr. Anaya's attestation for any changes to the treatment plan Principal Dx & Hospital Course #1 = Principal Diagnosis (1) UTI (urinary tract infection): - acute complicated UTI related to indwelling Sherwood catheter in an immunocompromised host -Was treated with bactrim for known Klebsiella UTI from urine cultures resulting on 10/26 -probably worsened condition due to Enterococcus UTI. Presented with low grade fever and acute encephalopathy -ceftriaxone was started on admission Urine culture growing pansensitive Enterococcus and pansensitive Klebsiella--> now on Unasyn since 11/04 which will cover both--> plan to switch to po Augmentin on discharge for total of 10 days of treatment - requesting repeat UA to ensure UTI treated adequately--> UA 11/07 without evidence of infection -blood cxs remain NGTD (2) Kidney replaced by transplant: -Is on Tacrolimus and Cellcept, follows with [facility] [place] Nephrology Machine Grainer consult appreciated-have signed off -Will continue both as he has been stable and is not septic Renal function back to baseline but 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, creatinine 1.65 on the day of discharge -follow BMP as an outpatient (3) Chronic indwelling Sherwood catheter: -Followed by Urology, has chronic sherwood with leg bag -will need to exchange Sherwood catheter prior to discontinuing antibiotics at [facility] (4) Altered mental status: Acute metabolic encephalopathy-much improved CT head negative on admission -Likely a combination of chronic decline and acute UTI with dehydration, TUNG -No focal neuro defects, CT of the head negative -had myoclonic jerks and hallucinations now resolved -Was treated with Seroquel at bedtime but no need to continue at discharge -Appreciate Neuro consult-no seizures suspected (5) Primary hypertension: -Stable -Can continue amlodipine -Will continue to hold Chlorthalidone to prevent further dehydration (6) Falls: -No acute trauma from fall prior to admission -Fall precautions ordered -PT/OT recommend rehab placement (7) Hypercholesterolemia: -Continue statin (8) Obstructive sleep apnea: -Does not tolerate HS CPAP (9) COVID-19: Tested positive on the day of discharge but was completely asymptomatic. He had no fevers, no hypoxia, no sore throat or runny nose, no cold symptoms, no cough. He was mentating quite well and stronger than he had been on admission. His renal function does not support treatment with Paxlovid or Remdesivir as well as Paxlovid having multiple interactions with a lot of his home medications that cannot be stopped such as his antirejection medications. He does not meet criteria to start Decadron because he does not have hypoxia Stable for discharge to rehab and monitor for worsening symptoms Plan DVT proph- Lovenox SQ Dispo-dc to rehab today at [facility] discussed care with on phone Discharge Exam Constitutional WD/WN, vitals as above Respiratory normal respiratory effort, lungs clear to auscultation Cardiovascular RRR, no murmur, no edema Gastrointestinal (Abdomen) normal bowel sounds, soft, nontender, no hepatosplenomegaly Updated Medication List Medication Instructions Recorded Confirmed Type magnesium oxide 400 mg PO QPM 10/04/18 11/02/22 History cholecalciferol (vitamin D3) 10 400 units PO QAM 12/21/18 11/02/22 History mcg (400 unit) capsule mycophenolate mofetil 250 mg 250 mg PO BID #180 ea 01/18/22 11/02/22 Rx capsule aspirin 81 mg tablet,delayed 81 mg PO DAILY 04/18/22 11/02/22 History release calcium carbonate 200 mg calcium 200 mg PO BID 04/18/22 11/02/22 History (500 mg) chewable tablet (Tums) omega-3 fatty acids 1,000 mg 1,000 mg PO DAILY 04/18/22 11/02/22 History capsule tacrolimus 1 mg capsule, 1 mg PO BID Z94.0 04/18/22 11/02/22 History immediate-release atorvastatin 10 mg tablet 10 mg PO QPM #90 tabs 06/29/22 11/02/22 Rx acetaminophen 325 mg capsule 650 mg PO Q4H PRN FEVER <100.4/PAIN 06/30/22 11/02/22 History lidocaine 4 % topical patch 1 patch topical DAILY PRN pain #30 06/30/22 11/02/22 Rx (Salonpas (lidocaine)) ea amlodipine 5 mg tablet 5 mg PO DAILY #90 tabs 08/01/22 11/02/22 Rx potassium chloride 10 mEq 10 meq PO DAILY #90 tabs 08/12/22 11/02/22 Rx tablet,extended release brimonidine 0.2 % eye drops 1 drp OPB HS 08/31/22 11/02/22 History multivitamin with minerals 1 tab PO HS 08/31/22 11/02/22 History psyllium husk 3.4 gram/5.4 gram 1 tbsp PO DAILY 11/02/22 11/02/22 History oral powder (Metamucil) sertraline 25 mg tablet 50 mg PO DAILY 11/02/22 11/02/22 History amoxicillin 875 mg-potassium 1 tab PO BID #10 tabs 11/08/22 Rx clavulanate 125 mg tablet miconazole nitrate 2 % topical 1 applic EXT Q12 #85 grams 11/08/22 Rx powder (Desenex) Hospital Stay Data Consultations 11/02/22 16:38 ED Decision to Admit Stat 11/02/22 18:03 Consult Nephrology Routine 11/04/22 14:19 Consult Neurology Routine Diagnostic Imagining Performed 11/02/22 11:32 CT head/brain wo con Stat Pending Results Patient Have Any Pending Studies at Discharge: No Discharge Instructions Given to Patient (Per Discharging Provider) Please finish out 5 more days of Augmentin for the UTI. Your Sherwood catheter should be exchanged prior to the end of your antibiotic course. You should have a BMP checked in 3 days to ensure your renal function is staying stable. You tested positive for COVID-19 on the day of discharge but have no symptoms of this. Your oxygen levels are normal, you do not have a fever, and your renal function recludes you from getting a medication called Remdesivir for COVID. You will continue to be monitored for any worsening signs/symptoms of this at the rehab. Total Time Total Time Spent Total Time Spent (In Minutes): 40 minutes Coding Level of Care Code 58414 INP/OBS DISCH >30 MIN Diagnoses UTI (urinary tract infection) N39.0 Kidney replaced by transplant Z94.0 Chronic indwelling Sherwood catheter Z97.8 Altered mental status R41.82 Primary hypertension I10 Falls W19.XXXA Hypercholesterolemia E78.00 Obstructive sleep apnea G47.33 COVID-19 U07.1
== END 2022-11-08 16:25 | DRG 698 ==
LOC: ED 11:25 → 3W 18:01 → SUATTDRO 18:01 → 3W 21:03 → 2N 11-04 17:34
DX: G25.3 Myoclonus; B95.2 Enterococcus as the cause of diseases classified elsewhere; U07.1 COVID-19; I12.9 Hypertensive chronic kidney disease with stage 1 through stage 4 chronic kidney disease, or unspecified chronic kidney disease; F03.90 Unspecified dementia, unspecified severity, without behavioral disturbance, psychotic disturbance, mood disturbance, and anxiety; Y92.89 Other specified places as the place of occurrence of the external cause; E78.00 Pure hypercholesterolemia, unspecified; Z94.0 Kidney transplant status; Y83.0 Surgical operation with transplant of whole organ as the cause of abnormal reaction of the patient, or of later complication, without mention of misadventure at the time of the procedure; G93.41 Metabolic encephalopathy; Z79.82 Long term (current) use of aspirin; N18.4 Chronic kidney disease, stage 4 (severe); T83.511A Infection and inflammatory reaction due to indwelling urethral catheter, initial encounter; D84.9 Immunodeficiency, unspecified; B96.1 Klebsiella pneumoniae [K. pneumoniae] as the cause of diseases classified elsewhere; G47.33 Obstructive sleep apnea (adult) (pediatric); Z88.8 Allergy status to other drugs, medicaments and biological substances; N39.0 Urinary tract infection, site not specified; Z79.899 Other long term (current) drug therapy; E86.0 Dehydration; T86.19 Other complication of kidney transplant

== ENCOUNTER 2023-01-30 05:49 | Inpatient (IN) ==
--- OUTSIDE RECORDS SUMMARY | 2023-01-30 05:57 | External Medical Summary ---
Author Name Unknown Address Unknown Organization K01:[facility] [place] [address] [facility] [address] Laboratory Report Ordering Provider Test Date Status CURTIS LUA 01/20/2023 06:40:51 Final Observation Date Value Abnormality Reference (Units ) Status Bacteria identified in Specimen by Culture 01/20/2023 06:40:51 [id number]^ENTEROB ACTER CLOACAE COMPLEX Abnormal Final 10,000 to 100,000 colonies/m L Enterobacter cloacae complex
This bacterial species is known to produce a chromosomal AmpC inducible beta lactamase. Penicillin or cephalosporin use, with the exception of cefepime, may result in resistance. Bacteria identified in Specimen by Culture 01/20/2023 06:40:51 [id number]^AEROCOCCUS URINAE Abnormal Final >100,000 colonies/mL Aerococ cus urinae
The genus species identification occurred by mass spectrometry and its performance characteristics were determined by [employer]. It has not been cleared or approved by the FDA.
The laboratory is regulated under CLIA as qualified to perform high-complexity testing. This test is used for clinical purposes. It should not be regarded as investigational or for research.
Routine antimicrobial susceptibility testing methods and standardized interpretation criteria are not available for Aerococcus species. Aerococcus urinae has been described as susceptible to penicillin, amoxicillin and nitrofurantoin, but resistant to sulfonamides. Performing Location [facility] [place] [address] [facility] [address] Ordering Provider Test Date Status CURTIS LUA 01/20/2023 06:40:51 Final Observation Date Value Abnormality Reference (Units ) Status Cefepime susceptibility 01/20/2023 06:40:51 <=1 Susceptible Final cefOXitin [Susceptibility] 01/20/2023 06:40:51 >=64 Resistant Final Ceftriaxone suceptibility 01/20/2023 06:40:51 >=64 Resistant Final Ciprofloxacin 01/20/2023 06:40:51 <=0.25 Susceptible Final Due to serious side effects, the FDA has advised against using Ciprofloxacin to treat uncomplicated UTIs and respiratory tract infections unless there are no alternative treatment options. Gentamicin susceptibility 01/20/2023 06:40:51 <=1 Susc eptible Final Meropenem [Susceptibility] 01/20/2023 06:40:51 Soumya ceptible Final This is an appended report. These results have been appended to a previously preliminary verified report. Nitrofurantoin susceptibility 01/20/2023 06:40:51 64 Intermediate Final Piperacillin + Tazobactamsusceptibility 01/20/2023 06:40:51 >=128 Resistant Final TMP-SMZ susceptibility 01/20/2023 06:40:51 <=20 Suscept ible Final Test: Culture, Urine, Quanti tative
Specimen Source: Urine, Clean Catch
Specimen Type: Urine
Specimen Date: 01/20/2023 6:40 AM
Result Date: 01/25/2023 2:02 PM
Result Status: Final result
Abnormal: Yes
Resulting Lab: [facility] [place]
[address]
[facility] [address]

CULTURE

10,000 to 100,000 colonies/mL Enterobacter cloacae complex (Abnormal)

This bacterial species is known to produce a chromosomal AmpC inducible
beta lactamase. Penicillin or cephalosporin use, with the exception of
cefepime, may result in resistance.

>100,000 colonies/mL Aerococcus urinae (Abnormal)

The genus species identification occurred by mass spectrometry and its
performance characteristics were determined by [facility]. It has not been cleared or approved by the FDA.
The laboratory is regulated under CLIA as qualified to perform
high-complexity testing. This test is used for clinical purposes. It should
not be regarded as investigational or for research.
Routine antimicrobial susceptibility testing methods and standardized
interpretation criteria are not available for Aerococcus species.
Aerococcus urinae has been described as susceptible to penicillin,
amoxicillin and nitrofurantoin, but resistant to sulfonamides.

SUSCEPTIBILITY

Enterobacter cloacae
complex
METHOD MICROBROTH DILUTIONS

CEFEPIME <=1 Susceptible
CEFOXITIN >=64 Resistant
CEFTRIAXONE >=64 Resistant
CIPROFLOXACIN <=0.25 Susceptible [1]
GENTAMICIN <=1 Susceptible
MEROPENEM -- Susceptible [2]
NITROFURANTOIN 64 Intermediate
PIPERACILLIN TAZOBACTAM >=128 Resistant
TRIMETH/SULFAMETHOXAZOLE <=20 Susceptible

[1] Due to serious side effects, the FDA has advised against using
Ciprofloxacin to treat uncomplicated UTIs and respiratory tract infections
unless there are no alternative treatment options.

[2] This is an appended report. These results have been appended to a
previously preliminary verified report.

null Performing Location [facility] [place] - [facility] [address] [facility] [address]
[2023-01-30 06:47] LABS: Basophils # (auto) 0.03 K/uL (0.00-0.20); Basophils % (auto) 0.6 %; Eosinophils # (auto) 0.11 K/uL (0.00-0.50); Eosinophils % (auto) 2.2 %; Hematocrit (blood only) 42.9 % (42.0-52.0); Hemoglobin 14.6 g/dl (14.0-18.0); Immature Granulocytes # (auto) 0.02 K/uL (0.01-0.20); Immature Granulocytes % (auto) 0.4 %; Lymphocytes # (auto) 1.23 K/uL (1.20-3.40); Lymphocytes % (auto) 24.6 %; Mean Corpuscular Hemoglobin 30.4 pg (25.0-34.0); Mean Corpuscular Volume 89.2 fL (80.0-100.0); Mean Platelet Volume 8.9 fL (9.4-12.4); Monocytes # (auto) 0.39 K/uL (0.11-0.59); Monocytes % (auto) 7.8 %; Neutrophils # (auto) 3.23 K/uL (1.40-6.50); Neutrophils % (auto) 64.4 %; Platelet Count 116 K/uL (130-400); RDW Coefficient of Variation 12.3 % (11.5-14.5); RDW Standard Deviation 40.5 fL (36.4-46.3); Red Blood Count 4.81 M/uL (4.70-6.10); White Blood Count 5.01 K/ul (4.8-10.8)
--- NOTE | 2023-01-30 06:47 | CT Scan Report ---
HEAD CT NONCONTRAST CT DOSE: HISTORY: fall; scalp hematoma TECHNIQUE: Multiaxial CT images of the head were performed without the use of intravenous contrast. A utomated exposure control was utilized for this study. A dose lowering technique was utilized adheri ng to the principles of ALARA. Comparison: Head CT 11/02/2022. Findings: The paranasal sinuses and mastoid air cells are clear. The calvarium and skull base are int act. There is no mass, midline shift, acute infarct. White matter hypodensity is nonspecific but sugg estive of microvascular ischemic change. The ventricles and sulci demonstrate mild age-related involu tional changes. Bilateral basal ganglia calcifications are again noted. Scalp swelling within the rig ht high convexity. Small areas of increased density within the bifrontal subdural locations best seen on image 19. These measure up to 6 mm in thickness. These are consistent with a small acute on chron ic subdural hematomas. Is also a small focus of increased density within the subdural space at the ri ght high convexity on image 31. 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 No associated mass effect or midline shift. ACT 112: Negative or not required by law. Electronically signed by: Constantin Reeves M.D. 01/30/2023 6:45 AM
--- NOTE | 2023-01-30 06:51 | CT Scan Report ---
CERVICAL SPINE CT CT DOSE: 1150.77 mGy.cm HISTORY: fall from standing TECHNIQUE: Multiaxial CT images of the cervical spine were performed and reformatted in the sagittal and coronal plane without the use of contrast. A dose lowering technique was utilized adhering to th e principles of ALARA. COMPARISON: None. FINDINGS: No fractures. No subluxation. Prevertebral soft tissues and the C1-C2 interval are intact. No pneumothorax. IMPRESSION: No fractures within the cervical spine. ACT 112: Negative or not required by law. Electronically signed by: Constantin Reeves M.D. 01/30/2023 6:48 AM
[2023-01-30] MEDS ORDERED: DIPHTHERIA/TETANUS/PERTUSSIS Vaccine (Tdap, Age 7+yrs) 0.5mL SYR/VL IM ONE (06:58)
[2023-01-30] MEDS ORDERED: LIDOCAINE/EPINEPH/TETRACAINE 1 EA SYR EXT STA (06:58)
--- NOTE | 2023-01-30 07:14 | Emergency Department Note ---
ED Visit Note 82-year-old male who we were asked by Dr. Smith, ED attending physician, to perform a scalp laceration repair. Please see her dictation for further treatment and final disposition. PROCEDURE NOTE: Examination shows The patient provided verbal consent for laceration repair under local anesthesia. LET gel had already been applied prior to the procedure. The wound was cleansed using an equal parts mixture of hydrogen peroxide and saline. Exploration of the wound does not show any active bleeding or foreign debris. The wound was then approximated using mike x 5. A bacitracin bandage was applied. Total laceration length was 3 cm. .
--- NOTE | 2023-01-30 07:25 | Emergency Department Note ---
Impression & Plan Acute on chronic intracranial subdural hematoma, Fall, Laceration of scalp, Acute UTI ED Provider Note CHIEF COMPLAINT: Fall, closed head injury HISTORY OF PRESENT ILLNESS: This 82-year-old male patient past medical history of renal transplant, sleep apnea, mild cognitive impairment, prediabetes, hypertension, chronic indwelling Lopez catheter, recurrent falls presents to the emergency department with complaints of a closed head injury after a fall. It was an unwitnessed event and the patient does not recall what happened. He is concerned that he may have a UTI. He states his catheter was changed yesterday. Patient does complain of some mid back discomfort that is not reproducible. He denies any neck discomfort or headache. REVIEW OF SYSTEMS: A review of systems was performed with positives and pertinent negatives listed in the history of present illness. 10 systems were reviewed and are otherwise negative. ALLERGIES: see below MEDICATIONS: see below PMH: see below SOCIAL HISTORY: see below DDx: Fall, intracranial hemorrhage, cervical spine fracture, thoracic spine fracture, closed head injury, UTI, scalp laceration among others. PHYSICAL EXAM: Vital signs reviewed. General: Well-appearing 82-year-old male, in no significant distress. HEENT: No scleral icterus, PERRLA, neck supple. 2 cm laceration to the parietal scalp. Bleeding is controlled. Cardiovascular: Regular rate and rhythm, no extra sounds. Pulmonary: Clear to auscultation bilaterally, normal work of breathing. Abdomen: Soft, nontender, nondistended, positive bowel sounds. Musculoskeletal: Atraumatic, no peripheral edema. Nontender to palpation over the cervical and thoracic spine. No reproducible tenderness. No step-off or deformity. Ribs palpated and nontender. : Indwelling Lopez catheter. Neurologic: Patient awake alert and oriented x 3, speech is clear Skin: Warm, dry, no rash EMERGENCY DEPARTMENT COURSE/MDM: This patient was evaluated and appeared to be in no significant distress. IV access was obtained and laboratory work was drawn. Patient was placed on the hospital monitor noted to be in a normal sinus rhythm. Patient's laceration was repaired by David Best PA-C after let gel was applied. Please see his procedure note for further details. Head CT was performed and reveals bilateral acute on chronic subdural hematomas of approximately 6 mm. Case was discussed with Dr. Allison of neurosurgery at [facility] who agrees with plan for medical admission and close observation/repeat CT to ensure stability. The patient is not currently anticoagulated. Patient's laboratory work is fairly reassuring with a normal WBC and normal lactate. UA is concerning for infection. Based on previous culture results which grew Klebsiella and Enterococcus, the clinical pharmacist was consulted. She has recommended Unasyn 3 g IV. Patient's creatinine is 1.47 which is consistent with his baseline. Patient was hydrated with normal saline solution at 100 mL/h. His tetanus status was updated. Patient's case was discussed with Dr. Anaya of the hospitalist service who was agreed to evaluate the patient for admission and further management. MONITORING: An order for cardiac monitoring was placed and the patient is noted to be in a normal sinus rhythm at 72 beats per minute. RADIOLOGY: Head CT to my interpretation reveals bilateral small acute on chronic subdural hematomas. Please see final read below DISPOSITION: Admission Past Med/Surg History Medical History Pre-syncope Hx of basal cell carcinoma AV fistula LEFT ARM>HAD DIALYSIS BEFORE KIDNEY *2005 [place] FOR 5 MONTHS Hx of squamous cell carcinoma Unintentional weight loss Hearing deficit Primary hypertension Prediabetes Obstructive sleep apnea unable to tolerate cpap machine. Depression Hypercholesterolemia Polycystic kidney Surgical History History of cataract surgery RT/LEFT H/O right inguinal hernia repair S/P [place] [facility] [place]t polycystic [place] History of colonoscopy Status post Mohs surgery H/O transurethral resection of prostate Family History Grandfather (Maternal) Cardiac disorder Grandmother (Paternal) Cardiac disorder Grandfather (Paternal) Cardiac disorder Mother Cardiac disorder Hypertension Grandmother (Maternal) Diabetes Brother Hypertension Sister Renal transplant, status post Hypertension Other No family history of adverse response to anesthesia Social History Smoking Status: Never smoker Tobacco Type: Cigarettes Second Hand Exposure: No; Do You Dip or Chew Tobacco: No; Hx Alcohol Use: No Hx Substance Use: No Preferred Language: Mohawk Communication Ability: Impaired Visual Impairment: No Limitations Hearing Ability: Normal Yarn Weight And Strength Tester Required: No Beliefs That Will Affect Care: None marital status: Current Living Situation: Intermediate current occupational status: retired How many Children do You have: 2 Other Information That Helps Us Care for You: No Feels Safe at Home: Declines to Answer Diet: regular during the past year weight has: decreased > 10 lbs Dental Care, Regularly: No Seatbelt Use: always Sunscreen Use: Yes Assistive Devices: Walker Allergies Allergies Allergy/AdvReac Type Severity Reaction Status Date / Time lisinopril AdvReac Intermediate Cough Verified 01/16/23 11:20 Home Meds Home Medications Medication Instructions Recorded Confirmed acetaminophen 325 mg capsule 650 mg PO Q4H PRN temp>100.4/pain 06/30/22 12/28/22 calcium carbonate 200 mg calcium 200 mg PO AMHS 12/02/22 12/28/22 (500 mg) chewable tablet (Tums) magnesium oxide 400 mg PO HS 12/02/22 12/28/22 Previous Rx's Medication Instructions Recorded miconazole nitrate 2 % topical 1 applic EXT Q12 #85 grams 11/08/22 powder (Desenex) aspirin 81 mg tablet,delayed 81 mg PO DAILY #90 tabs 12/01/22 release atorvastatin 10 mg tablet 10 mg PO QPM #90 tabs 12/01/22 brimonidine 0.2 % eye drops 1 drp OPB HS #15 mL 12/01/22 cholecalciferol (vitamin D3) 10 400 unit PO QAM #90 caps 12/01/22 mcg (400 unit) capsule lidocaine 4 % topical patch 1 patch topical DAILY PRN pain #30 12/01/22 (Salonpas (lidocaine)) ea multivitamin with minerals 1 tab PO HS #90 tabs 12/01/22 omega-3 fatty acids 1,000 mg 1,000 mg PO DAILY #90 caps 12/01/22 capsule potassium chloride 10 mEq 10 meq PO DAILY #90 tabs 12/01/22 tablet,extended release psyllium husk 3.4 gram/5.4 gram 1 tbsp PO DAILY #660 grams 12/01/22 oral powder (Metamucil) sertraline 50 mg tablet 50 mg PO DAILY #90 tabs 01/02/23 tacrolimus 1 mg capsule, 1 mg PO BID #180 caps 01/02/23 immediate-release amlodipine 5 mg tablet 5 mg PO DAILY #90 tabs 01/09/23 mycophenolate mofetil 250 mg 250 mg PO BID #60 ea 01/19/23 capsule ciprofloxacin HCl 500 mg tablet 500 mg PO BID #14 tabs 01/27/23 Results & Data (ED) Vital Signs Vital Signs - 24 hr 01/30/23 05:53 01/30/23 07:05 01/30/23 07:48 Temperature 36.3 C L Temperature Source Oral Pulse Rate 72 85 Pulse Rate [Right Finger] 94 H Pulse Rate from SpO2 Sensor Pulse Rhythm [Right Finger] Regular Pulse Strength [Right Finger] Normal Respiratory Rate 15 20 21 Respiratory Effort / Characteristics Non-Labored Non-Labored Spontaneous Respiratory Depth Normal Normal Respiratory Pattern Regular Regular Blood Pressure 158/80 H Blood Pressure [Left Arm] 153/107 H Blood Pressure Mean 106 Blood Pressure Mean [Left Arm] 122 Blood Pressure Position [Left Arm] Sitting Pulse Oximetry 99 94 Oxygen Delivery Method Room Air Room Air Sepsis Recent Fever Within 48 Hours No Sepsis New/Unexplained Change in Mental Status N/A Sepsis Action Taken by Nursing No Action Required 01/30/23 08:00 01/30/23 08:00 01/30/23 08:19 Temperature Temperature Source Pulse Rate 88 Pulse Rate [Right Finger] Pulse Rate from SpO2 Sensor Pulse Rhythm [Right Finger] Pulse Strength [Right Finger] Respiratory Rate 21 Respiratory Effort / Characteristics Respiratory Depth Respiratory Pattern Blood Pressure 150/71 H Blood Pressure [Left Arm] Blood Pressure Mean 90 Blood Pressure Mean [Left Arm] Blood Pressure Position [Left Arm] Pulse Oximetry Oxygen Delivery Method Sepsis Recent Fever Within 48 Hours Sepsis New/Unexplained Change in Mental Status Sepsis Action Taken by Nursing 01/30/23 08:30 01/30/23 08:31 01/30/23 08:31 Temperature Temperature Source Pulse Rate 88 77 Pulse Rate [Right Finger] Pulse Rate from SpO2 Sensor Pulse Rhythm [Right Finger] Pulse Strength [Right Finger] Respiratory Rate 23 21 Respiratory Effort / Characteristics Respiratory Depth Respiratory Pattern Blood Pressure 150/67 H Blood Pressure [Left Arm] Blood Pressure Mean 96 Blood Pressure Mean [Left Arm] Blood Pressure Position [Left Arm] Pulse Oximetry Oxygen Delivery Method Sepsis Recent Fever Within 48 Hours Sepsis New/Unexplained Change in Mental Status Sepsis Action Taken by Nursing 01/30/23 09:00 01/30/23 09:00 01/30/23 09:00 Temperature Temperature Source Pulse Rate 75 Pulse Rate [Right Finger] 76 Pulse Rate from SpO2 Sensor Pulse Rhythm [Right Finger] Pulse Strength [Right Finger] Respiratory Rate 20 16 Respiratory Effort / Characteristics Non-Labored Spontaneous Respiratory Depth Normal Respiratory Pattern Regular Blood Pressure 121/55 L Blood Pressure [Left Arm] 133/67 Blood Pressure Mean 74 Blood Pressure Mean [Left Arm] 89 Blood Pressure Position [Left Arm] Pulse Oximetry 94 Oxygen Delivery Method Room Air Sepsis Recent Fever Within 48 Hours Sepsis New/Unexplained Change in Mental Status Sepsis Action Taken by Nursing 01/30/23 09:30 01/30/23 09:31 01/30/23 09:31 Temperature Temperature Source Pulse Rate 71 72 Pulse Rate [Right Finger] Pulse Rate from SpO2 Sensor Pulse Rhythm [Right Finger] Pulse Strength [Right Finger] Respiratory Rate 19 19 Respiratory Effort / Characteristics Respiratory Depth Respiratory Pattern Blood Pressure 133/67 Blood Pressure [Left Arm] Blood Pressure Mean 91 Blood Pressure Mean [Left Arm] Blood Pressure Position [Left Arm] Pulse Oximetry Oxygen Delivery Method Sepsis Recent Fever Within 48 Hours Sepsis New/Unexplained Change in Mental Status Sepsis Action Taken by Nursing 01/30/23 10:00 01/30/23 10:30 01/30/23 10:30 Temperature Temperature Source Pulse Rate 88 92 H Pulse Rate [Right Finger] Pulse Rate from SpO2 Sensor Pulse Rhythm [Right Finger] Pulse Strength [Right Finger] Respiratory Rate 12 15 Respiratory Effort / Characteristics Respiratory Depth Respiratory Pattern Blood Pressure 134/85 Blood Pressure [Left Arm] Blood Pressure Mean 94 Blood Pressure Mean [Left Arm] Blood Pressure Position [Left Arm] Pulse Oximetry Oxygen Delivery Method Sepsis Recent Fever Within 48 Hours Sepsis New/Unexplained Change in Mental Status Sepsis Action Taken by Nursing 01/30/23 11:00 01/30/23 11:00 01/30/23 11:00 Temperature Temperature Source Pulse Rate 70 Pulse Rate [Right Finger] 74 Pulse Rate from SpO2 Sensor Pulse Rhythm [Right Finger] Regular Pulse Strength [Right Finger] Normal Respiratory Rate 20 14 Respiratory Effort / Characteristics Non-Labored Spontaneous Respiratory Depth Normal Respiratory Pattern Regular Blood Pressure 144/74 H Blood Pressure [Left Arm] 144/81 H Blood Pressure Mean 111 Blood Pressure Mean [Left Arm] 102 Blood Pressure Position [Left Arm] Sitting Pulse Oximetry Oxygen Delivery Method Sepsis Recent Fever Within 48 Hours Sepsis New/Unexplained Change in Mental Status Sepsis Action Taken by Nursing 01/30/23 11:53 01/30/23 12:00 01/30/23 12:00 Temperature Temperature Source Pulse Rate 74 73 Pulse Rate [Right Finger] Pulse Rate from SpO2 Sensor 73 73 Pulse Rhythm [Right Finger] Pulse Strength [Right Finger] Respiratory Rate 14 11 L Respiratory Effort / Characteristics Respiratory Depth Respiratory Pattern Blood Pressure 152/112 H Blood Pressure [Left Arm] Blood Pressure Mean 126 Blood Pressure Mean [Left Arm] Blood Pressure Position [Left Arm] Pulse Oximetry 97 100 Oxygen Delivery Method Sepsis Recent Fever Within 48 Hours Sepsis New/Unexplained Change in Mental Status Sepsis Action Taken by Nursing 01/30/23 12:21 01/30/23 12:30 01/30/23 12:30 Temperature Temperature Source Pulse Rate 72 74 Pulse Rate [Right Finger] Pulse Rate from SpO2 Sensor 71 Pulse Rhythm [Right Finger] Pulse Strength [Right Finger] Respiratory Rate 15 Respiratory Effort / Characteristics Respiratory Depth Respiratory Pattern Blood Pressure 150/86 H Blood Pressure [Left Arm] Blood Pressure Mean 112 Blood Pressure Mean [Left Arm] Blood Pressure Position [Left Arm] Pulse Oximetry 99 Oxygen Delivery Method Sepsis Recent Fever Within 48 Hours Sepsis New/Unexplained Change in Mental Status Sepsis Action Taken by Nursing 01/30/23 13:00 01/30/23 13:00 01/30/23 13:30 Temperature Temperature Source Pulse Rate 78 78 Pulse Rate [Right Finger] Pulse Rate from SpO2 Sensor Pulse Rhythm [Right Finger] Pulse Strength [Right Finger] Respiratory Rate 19 13 Respiratory Effort / Characteristics Respiratory Depth Respiratory Pattern Blood Pressure 168/88 H Blood Pressure [Left Arm] Blood Pressure Mean 125 Blood Pressure Mean [Left Arm] Blood Pressure Position [Left Arm] Pulse Oximetry Oxygen Delivery Method Sepsis Recent Fever Within 48 Hours Sepsis New/Unexplained Change in Mental Status Sepsis Action Taken by Nursing 01/30/23 13:30 01/30/23 14:00 Temperature Temperature Source Pulse Rate 75 Pulse Rate [Right Finger] Pulse Rate from SpO2 Sensor Pulse Rhythm [Right Finger] Pulse Strength [Right Finger] Respiratory Rate 20 Respiratory Effort / Characteristics Respiratory Depth Respiratory Pattern Blood Pressure 168/83 H Blood Pressure [Left Arm] Blood Pressure Mean 111 Blood Pressure Mean [Left Arm] Blood Pressure Position [Left Arm] Pulse Oximetry Oxygen Delivery Method Sepsis Recent Fever Within 48 Hours Sepsis New/Unexplained Change in Mental Status Sepsis Action Taken by Intermediate Medications Current Medication List: was personally reviewed by me Laboratory Data Attestation: I reviewed the patient's lab results. 01/31/23 06:01 01/31/23 06:01 Lab Results 01/30/23 Range/Units 06:00 WBC 5.01 (4.8-10.8) K/ul RBC 4.81 (4.70-6.10) M/uL Hgb 14.6 (14.0-18.0) g/dl Hct 42.9 (42.0-52.0) % MCV 89.2 (80.0-100.0) fL MCH 30.4 (25.0-34.0) pg MCHC 34.0 (32.0-36.0) g/dL RDW Std Deviation 40.5 (36.4-46.3) fL RDW Coeff of Reema 12.3 (11.5-14.5) % Plt Count 116 L (130-400) K/uL MPV 8.9 L (9.4-12.4) fL Immature Gran % (Auto) 0.4 % Neut % (Auto) 64.4 % Lymph % (Auto) 24.6 % [place] % (Auto) 7.8 % Eos % (Auto) 2.2 % Baso % (Auto) 0.6 % Neut # (Auto) 3.23 (1.40-6.50) K/uL Lymph # (Auto) 1.23 (1.20-3.40) K/uL [place] # (Auto) 0.39 (0.11-0.59) K/uL Eos # (Auto) 0.11 (0.00-0.50) K/uL Baso # (Auto) 0.03 (0.00-0.20) K/uL Immature Gran # (Auto) 0.02 (0.01-0.20) K/uL Sodium 137 (136-145) mmol/L Potassium 4.4 (3.5-5.1) mmol/L Chloride 104 (98-107) mmol/L Carbon Dioxide 27 (21-32) mmol/L Anion Gap 6 (3-11) BUN 21 (6-23) mg/dl Creatinine 1.47 H (0.6-1.4) mg/dl Est Cr Clr Drug Dosing 44.7 ml/min Est GFR ( Amer) 51.5 ml/min Est GFR (Non-Af Amer) 44.4 ml/min BUN/Creatinine Ratio 14.3 (10-20) Glucose 87 (70-99(Fasting)) mg/dl Calcium 10.1 (8.6-10.3) mg/dl Total Bilirubin 1.4 H (0.2-1.0) mg/dl AST 23 (13-39) U/L ALT 14 (7-52) U/L Alkaline Phosphatase 46 (34-104) U/L Total Protein 7.4 (6.0-8.3) gm/dl Albumin 4.7 (3.4-5.0) gm/dl Globulin 2.7 (2.5-4.0) gm/dl Albumin/Globulin Ratio 1.7 (0.9-2) Administered Medications Amlodipine Besylate (Amlodipine Besylate 5 Mg Tab) 5 mg PO DAILY NAZANIN Stop: 03/02/23 15:29 Last Admin: 01/31/23 16:50 Dose: 5 mg Documented By: MASHA Atorvastatin Calcium (Atorvastatin 10 Mg Tab) 10 mg PO QPM NAZANIN Stop: 03/01/23 20:59 Last Admin: 01/31/23 21:17 Dose: 10 mg Documented By: Admin: 01/30/23 21:25 Dose: 10 mg Documented By: JESÚS Brimonidine Tartrate (Brimonidine Tartrate 0.2% 5ml) 1 drops OPB HS NAZANIN Stop: 03/01/23 20:59 Last Admin: 01/31/23 21:16 Dose: 1 drops Documented By: Admin: 01/30/23 21:26 Dose: 1 drops Documented By: JESÚS Ampicillin Sodium/Sulbactam Sodium 3,000 mg/ Sodium Chloride 100 mls @ 100 mls/hr IV Q6H NAZANIN Stop: 02/09/23 17:59 Last Infusion: 02/01/23 06:50 Dose: Infused Documented By: Admin: 02/01/23 05:39 Dose: 100 mls/hr Documented By: Infusion: 02/01/23 05:39 Dose: Infused Documented By: Infusion: 02/01/23 01:30 Dose: 0 mls/hr Documented By: Admin: 02/01/23 00:32 Dose: 100 mls/hr Documented By: Infusion: 01/31/23 17:56 Dose: Infused Documented By: Admin: 01/31/23 16:50 Dose: 100 mls/hr Documented By: Infusion: 01/31/23 14:52 Dose: Infused Documented By: Admin: 01/31/23 13:51 Dose: 100 mls/hr Documented By: Infusion: 01/31/23 07:21 Dose: Infused Documented By: Admin: 01/31/23 05:31 Dose: 100 mls/hr Documented By: Infusion: 01/31/23 01:15 Dose: Infused Documented By: Admin: 01/30/23 23:54 Dose: 100 mls/hr Documented By: Infusion: 01/30/23 21:22 Dose: Infused Documented By: Admin: 01/30/23 19:47 Dose: 100 mls/hr Documented By: SYLVIE Miconazole Nitrate (Miconazole Nitrate Powder 85 Gm) 1 appln EXT Q12 NAZANIN Stop: 03/01/23 20:59 Last Admin: 01/31/23 21:17 Dose: 1 appln Documented By: Admin: 01/31/23 08:16 Dose: 1 appln Documented By: Admin: 01/30/23 21:26 Dose: 1 appln Documented By: JESÚS Mycophenolate Mofetil (Mycophenolate Mofetil 250 Mg Cap) 250 mg PO BID NAZANIN Stop: 03/01/23 20:59 Last Admin: 01/31/23 21:16 Dose: 250 mg Documented By: Admin: 01/31/23 08:16 Dose: 250 mg Documented By: Admin: 01/30/23 21:25 Dose: 250 mg Documented By: JESÚS Sertraline HCl (Sertraline Hcl 50 Mg Tablet) 50 mg PO DAILY NAZANIN Stop: 03/02/23 08:59 Last Admin: 01/31/23 08:16 Dose: 50 mg Documented By: MASHA Tacrolimus (Tacrolimus 1 Mg Cap) 1 mg PO BID NAZANIN Stop: 03/01/23 20:59 Last Admin: 01/31/23 21:16 Dose: 1 mg Documented By: Admin: 01/31/23 08:16 Dose: 1 mg Documented By: Admin: 01/30/23 21:25 Dose: 1 mg Documented By: JESÚS Discontinued Medications Diphtheria/Pertussis/Tetanus Vacc (Diphtheria/Tetanus/Pertussis Vaccine (Tdap, Age 7+Yrs) 0.5ml Syr/Vl) 0.5 ml IM .ONCE ONE Stop: 01/30/23 06:59 Last Admin: 01/30/23 07:29 Dose: 0.5 ml Documented By: SHANON Sodium Chloride (Nss) 1,000 mls @ 100 mls/hr IV .Q10H NAZANIN Stop: 03/01/23 08:59 Last Infusion: 01/30/23 18:34 Dose: Infused Documented By: Admin: 01/30/23 09:33 Dose: 100 mls/hr Documented By: SHANON Ampicillin Sodium/Sulbactam Sodium 3,000 mg/ Sodium Chloride 100 mls @ 200 mls/hr IV NOW STA Stop: 01/30/23 11:01 Last Infusion: 01/30/23 16:38 Dose: Infused Documented By: Admin: 01/30/23 12:55 Dose: 200 mls/hr Documented By: SHANON Lactated Ringer's (Lr) 1,000 mls @ 100 mls/hr IV .Q10H NAZANIN Stop: 01/31/23 13:29 Last Infusion: 01/31/23 15:34 Dose: Infused Documented By: Admin: 01/31/23 05:31 Dose: 100 mls/hr Documented By: Infusion: 01/31/23 04:48 Dose: Infused Documented By: Admin: 01/30/23 18:48 Dose: 100 mls/hr Documented By: SYLVIE Lidocaine (Lidocaine/Epineph/Tetracaine 1 Ea Syr) 1 each EXT NOW STA Stop: 01/30/23 06:59 Last Admin: 01/30/23 07:29 Dose: 1 each Documented By: SHANON Imaging Data Radiologist's Impression: Cervical Spine CT 01/30/23 05:[address] DOSE: 1150.77 mGy.cm HISTORY: fall from standing TECHNIQUE: Multiaxial CT images of the cervical spine were performed and reformatted in the sagittal and coronal plane without the use of contrast. A dose lowering technique was utilized adhering to the principles of ALARA. COMPARISON: None. FINDINGS: No fractures. No subluxation. Prevertebral soft tissues and the C1-C2 interval are intact. No pneumothorax. IMPRESSION: No fractures within the cervical spine. ACT 112: Negative or not required by law. Electronically signed by: Constantin Reeves M.D. 01/30/2023 6:[address] 01/30/23 05:[address] DOSE: HISTORY: fall; scalp hematoma TECHNIQUE: Multiaxial CT images of the head were performed without the use of intravenous contrast. Automated exposure control was utilized for this study. A dose lowering technique was utilized adhering to the principles of ALARA. Comparison: Head CT 11/02/2022. Findings: The paranasal sinuses and mastoid air cells are clear. The calvarium and skull base are intact. There is no mass, midline shift, acute infarct. White matter hypodensity is nonspecific but suggestive of microvascular ischemic change. The ventricles and sulci demonstrate mild age-related involutional changes. Bilateral basal ganglia calcifications are again noted. Scalp swelling within the right high convexity. Small areas of increased density within the bifrontal subdural locations best seen on image 19. These measure up to 6 mm in thickness. These are consistent with a small acute on chronic subdural hematomas. Is also a small focus of increased density within the subdural space at the right high convexity on image 31. 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 No associated mass effect or midline shift. ACT 112: Negative or not required by law. Electronically signed by: Constantin Reeves M.D. 01/30/2023 6:45 AM Thoracic Spine X-Ray 01/30/23 09:21 THORACIC SPINE 3 VIEWS HISTORY: fall, thoracic back pain COMPARISON: Abdomen and pelvis CT 01/24/2023. FINDINGS: Mild anterior wedging at T11 and T12 is similar to the prior CT examination. Therefore, this is likely chronic. No acute fractures within the thoracic spine. Mild degenerative disc disease throughout the thoracic spine. Paravertebral soft tissues are unremarkable. No subluxation. IMPRESSION: 1. No acute fractures within the thoracic spine. 2. Mild anterior wedging at T11 and T12 is similar to the prior CT examination and is therefore likely chronic. ACT 112: Negative or not required by law. Electronically signed by: Constantin Reeves M.D. 01/30/2023 11:49 AM Chest X-Ray 01/30/23 10:40 XR chest 1V not portable CLINICAL HISTORY: fall TECHNIQUE: Single frontal radiograph of the chest was obtained. Comparison: Comparison is made to chest radiograph 12/02/2022 FINDINGS: No lines and tubes are seen. The cardiomediastinal silhouette is normal. The lungs are clear. No evidence of pleural effusion or pneumothorax. IMPRESSION: No acute chest disease. ACT 112: Negative or not required by law. Electronically signed by: Kevin Saleh M.D. 01/30/2023 11:[address] 01/30/23 18:00 CT SCAN OF THE BRAIN WITHOUT IV CONTRAST CLINICAL HISTORY: Subdural hematoma. COMPARISON STUDY: CT scans of the brain dated 01/30/2023 and 11/02/2022. TECHNIQUE: Unenhanced axial CT scan of the brain is performed from the vertex to the skull base. A dose lowering technique was utilized adhering to the principles of ALARA. CT DOSE: 625.8 mGy.cm FINDINGS: Brain parenchyma: A mixed attenuation subdural hemorrhage along the right convexity has not significantly change from today's earlier examination. This measures up to 7 mm in maximum dimension. There is also a small mixed attenuation subdural hemorrhage along the left frontal convexity. This is seen on image #15 and measures up to 5.5 mm in thickness. There is no significant associated mass effect. There is age-related involutional change noting [id number] subcortical and periventricular microangiopathic disease. There is no parenchymal hemorrhage, midline shift, or evidence of acute territorial ischemia by CT criteria. Mineralization is noted in the basal ganglia. French- white matter differentiation is preserved. Ventricles, sulci, cisterns: Prominent secondary to involutional change. Intracranial vasculature: There is atherosclerotic calcification of the cavernous carotid and vertebral arteries. Calvarium: Unremarkable. Sinuses and mastoids: There is trace mucosal thickening within the ethmoid sinuses. The remaining visualized paranasal sinuses are clear. The mastoid air cells are well pneumatized. Cerumen is seen in the external auditory canals. Orbits: The bony orbits are grossly intact. There are bilateral ocular lens implants. IMPRESSION: 1. Unchanged appearance of acute on subacute appearing bilateral subdural hemorrhages as compared to today's earlier examination. These are new from the 11/02/2022 examination. 2. There is no parenchymal hematoma, midline shift, or evidence of acute territorial ischemia by CT criteria. ACT 112: Negative or not required by law. Electronically signed by: Dallas Ann M.D. 01/30/2023 11:57 AM Discharge Plan Visit Data Chief Complaint: Fall Stated Complaint: FALL LAC TO TOP OF HEAD W/ HEMATOMA ED Provider: Ada Smith Discharge Problem: Acute on chronic intracranial subdural hematoma, Fall, Laceration of scalp, Acute UTI Patient Disposition: Admitted As Inpatient Discharge Instructions Interventions: ED Discharge Assessment Last Done: 01/30/23 15:28 Discharge Problem: Fall Qualifiers: Encounter type: initial encounter Qualified Code(s): W19.XXXA - Unspecified fall, initial encounter Laceration of scalp Qualifiers: Encounter type: initial encounter Qualified Code(s): S01.01XA - Laceration without foreign body of scalp, initial encounter
[2023-01-30 08:11] LABS: Potassium 4.4 mmol/L (3.5-5.1)
[2023-01-30 08:14] LABS: Albumin Globulin Ratio 1.7 (0.9-2); Albumin Level 4.7 gm/dl (3.4-5.0); BUN Creatinine Ratio 14.3 (10-20); Bilirubin,Total 1.4 mg/dl (0.2-1.0); Calcium 10.1 mg/dl (8.6-10.3); Creatinine Clr Calc Pharmacy 44.7 ml/min; Est GFR (African American) 51.5 ml/min; Est GFR (Non-African American) 44.4 ml/min; Globulin 2.7 gm/dl (2.5-4.0); Total Protein 7.4 gm/dl (6.0-8.3)
[2023-01-30 08:19] LABS: Appearance Urine Turbid (Clear); Bacteria Urine Automated 3+ (Negative); Bilirubin Urine Negative (Negative); Blood Urine 3+ (Negative); Color Urine Yellow; Epithelial Cell Urine Auto 0-5 /lpf (0-5); Glucose Urine UA Negative (Negative); Ketones Urine Negative (Negative); Leukocyte Esterase Urine 1+ (Negative); Nitrite Urine Positive (Negative); RBC Urine Automated >30 /hpf (0-4); Specific Gravity Urine 1.015 (1.000-1.030); Urobilinogen Urine Negative (Negative); pH Urine 7.5 (4.5-7.5)
[2023-01-30 08:24] LABS: Protein Urine 2+ (Negative)
[2023-01-30] MEDS ORDERED: SODIUM CHLORIDE 0.9% 1,000 ML IV SCH (09:00)
[2023-01-30] MEDS ORDERED: AMPICILLIN/SULBACTAM SOD 3,000 MG in SODIUM CHLOR 0.9% MINI-B 100 ML IV STA (10:32)
--- NOTE | 2023-01-30 11:42 | History & Physical Report ---
Date of Service January 30, 2023 Assessment & Plan (1) Subdural hematoma: Plan: ER provider discussed with neurosurgery and did not recommend transfer - recommended repeat CT head Will repeat CT head in 12 hours - son aware no neurosurgery availability of Irene Morel (unable to contact his as no answer on number in EHR) (2) Catheter-associated urinary tract infection: Plan: Suspect this is the cause of his acute encephaloapthy although subdural causing confusion not ruled out but presentation is concsistent with prior UTIs Blood cultures added, follow up urine culture IV Unasyn (prior history of enterococcus) (3) Laceration of head: Plan: 5 mike placed in ER Remove in 7-10 days (4) Chronic indwelling Lopez catheter: (5) Renal transplant recipient: Plan: Continue tacrolimus and mycophenolate Consult nephrology (6) Obstructive sleep apnea: Plan: unable to tolerate CPAP (7) Acute metabolic encephalopathy: Plan: ?infection vs. subdural Continue to monitor back to baseline (8) Hypertension: Plan: Hold amlodipine pending serial BP measurements in setting of subdural to avoid hypotension (9) Mild cognitive impairment: Plan: Underlying dementia with multiple prior admissions with hallucinations while in hospital Plan VTE Prophyalxis - contraindicated in setting of subdural Diet - regular Disposition - admit to PCU Admission and Anticipated Discharge Date Admission Date: January 30, 2023 History of Present Illness Chief Complaint: Altered mental status Fall Primary Care Provider: Lydia Dobbs MD Kevin Marie is an 82 year old male who presents to the ER following a fall and hitting his head. Unable to get any significant history from the patient. He appears to be confused. He tells me I was not invited to come in today but that I could talk to him. He refused to open his mouth as he told me he just ate pizza. He was unable to follow my finger to test vision. Unable to tell me anything about falling. No answer on his 's phone in EHR. Fall was unwitnessed per ER provider. Per [facility] at about 5am this morning he was found lying in bed with face covered in blood. Noted to have a laceration on head and was therefore sent to the ER. Allergies Allergy/AdvReac Type Severity Reaction Status Date / Time lisinopril AdvReac Intermediate Cough Verified 01/16/23 11:20 Home Medications Medication Instructions Recorded Confirmed Type acetaminophen 325 mg capsule 650 mg PO Q4H PRN temp>100.4/pain 06/30/22 12/28/22 History miconazole nitrate 2 % topical 1 applic EXT Q12 #85 grams 11/08/22 12/28/22 Rx powder (Desenex) aspirin 81 mg tablet,delayed 81 mg PO DAILY #90 tabs 12/01/22 12/28/22 Rx release atorvastatin 10 mg tablet 10 mg PO QPM #90 tabs 12/01/22 12/28/22 Rx brimonidine 0.2 % eye drops 1 drp OPB HS #15 mL 12/01/22 12/28/22 Rx cholecalciferol (vitamin D3) 10 400 unit PO QAM #90 caps 12/01/22 12/28/22 Rx mcg (400 unit) capsule lidocaine 4 % topical patch 1 patch topical DAILY PRN pain #30 12/01/22 12/28/22 Rx (Salonpas (lidocaine)) ea multivitamin with minerals 1 tab PO HS #90 tabs 12/01/22 12/28/22 Rx omega-3 fatty acids 1,000 mg 1,000 mg PO DAILY #90 caps 12/01/22 12/28/22 Rx capsule potassium chloride 10 mEq 10 meq PO DAILY #90 tabs 12/01/22 12/28/22 Rx tablet,extended release psyllium husk 3.4 gram/5.4 gram 1 tbsp PO DAILY #660 grams 12/01/22 12/28/22 Rx oral powder (Metamucil) calcium carbonate 200 mg calcium 200 mg PO AMHS 12/02/22 12/28/22 History (500 mg) chewable tablet (Tums) magnesium oxide 400 mg PO HS 12/02/22 12/28/22 History sertraline 50 mg tablet 50 mg PO DAILY #90 tabs 01/02/23 Rx tacrolimus 1 mg capsule, 1 mg PO BID #180 caps 01/02/23 Rx immediate-release amlodipine 5 mg tablet 5 mg PO DAILY #90 tabs 01/09/23 Rx mycophenolate mofetil 250 mg 250 mg PO BID #60 ea 01/19/23 Rx capsule ciprofloxacin HCl 500 mg tablet 500 mg PO BID #14 tabs 01/27/23 Rx Past Med/Surg History Medical History AV fistula Depression Hearing deficit Hx of basal cell carcinoma Hx of squamous cell carcinoma Hypercholesterolemia Obstructive sleep apnea Polycystic kidney Pre-syncope Prediabetes Primary hypertension Unintentional weight loss Surgical History H/O right inguinal hernia repair H/O transurethral resection of prostate History of cataract surgery History of colonoscopy S/P kidney transplant Status post Mohs surgery Family History Grandfather (Maternal) Cardiac disorder Grandmother (Paternal) Cardiac disorder Grandfather (Paternal) Cardiac disorder Mother Cardiac disorder Hypertension Grandmother (Maternal) Diabetes Brother Hypertension Sister Renal transplant, status post Hypertension Other No family history of adverse response to anesthesia Social History Smoking Status: Never smoker Tobacco Type: Cigarettes Second Hand Exposure: No; Do You Dip or Chew Tobacco: No; Hx Alcohol Use: No Hx Substance Use: No Preferred Language: Kinyarwanda Communication Ability: Effective Visual Impairment: No Limitations Hearing Ability: Normal Wholesale Account Manager Required: No Beliefs That Will Affect Care: None marital status: Current Living Situation: Group Home current occupational status: retired How many Children do You have: 2 Other Information That Helps Us Care for You: No Feels Safe at Home: Declines to Answer Diet: regular during the past year weight has: decreased > 10 lbs Dental Care, Regularly: No Seatbelt Use: always Sunscreen Use: Yes Assistive Devices: Mechanical Lift, Walker and Wheelchair Review of Systems Review of Systems: Unobtainable due to cognitive status Physical Exam Constitutional: well developed; + not well nourished and no acute distress Eyes: PERRL, conjunctivae normal, anicteric sclerae (patient closing eyes repeatedly) ENMT: Mouth: + dry oral mucous membranes Respiratory: normal respiratory effort, lungs clear to auscultation Cardiovascular: RRR, no murmur, no edema Gastrointestinal (Abdomen): normal bowel sounds, soft, nontender, no hepatosplenomegaly Skin: stapled laceration on top of head Neurologic: moves all extremities, awake and + confused Psychiatric: Orientation: alert; + not oriented x 3 Genitourinary: no CVA tenderness Results & Data Results & Data Vital Signs (Past 12 Hours) Vital Signs Temp Pulse Pulse Resp BP BP Pulse Ox 01/30/23 09:00 76 20 133/67 94 01/30/23 08:19 88 01/30/23 07:05 94 H 20 153/107 H 94 01/30/23 05:53 36.3 C L 72 15 158/80 H 99 O2 Del Method 01/30/23 09:00 Room Air 01/30/23 08:19 01/30/23 07:05 Room Air 01/30/23 05:53 Room Air Laboratory Results Abnormal lab results 01/30/23 01/30/23 Range/Units 06:00 Unknown Plt Count 116 L (130-400) K/uL MPV 8.9 L (9.4-12.4) fL Creatinine 1.47 H (0.6-1.4) mg/dl Total Bilirubin 1.4 H (0.2-1.0) mg/dl Urine Appearance Turbid A (Clear) Urine Protein 2+ H (Negative) Urine Blood 3+ H (Negative) Urine Nitrite Positive A (Negative) Ur Leukocyte Esterase 1+ H (Negative) Urine WBC (Auto) 10-30 H (0-5) /hpf Urine RBC (Auto) >30 H (0-4) /hpf U Hyaline Cast (Auto) 5-10 H (0-5) /lpf Urine Bacteria (Auto) 3+ H (Negative) Diagnostic Findings HEAD CT NONCONTRAST CT DOSE: HISTORY: fall; scalp hematoma TECHNIQUE: Multiaxial CT images of the head were performed without the use of intravenous contrast. Automated exposure control was utilized for this study. A dose lowering technique was utilized adhering to the principles of ALARA. Comparison: Head CT 11/02/2022. Findings: The paranasal sinuses and mastoid air cells are clear. The calvarium and skull base are intact. There is no mass, midline shift, acute infarct. White matter hypodensity is nonspecific but suggestive of microvascular ischemic change. The ventricles and sulci demonstrate mild age-related involutional changes. Bilateral basal ganglia calcifications are again noted. Scalp swelling within the right high convexity. Small areas of increased density within the bifrontal subdural locations best seen on image 19. These measure up to 6 mm in thickness. These are consistent with a small acute on chronic subdural hematomas. Is also a small focus of increased density within the subdural space at the right high convexity on image 31. 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 No associated mass effect or midline shift. CERVICAL SPINE CT CT DOSE: 1150.77 mGy.cm HISTORY: fall from standing TECHNIQUE: Multiaxial CT images of the cervical spine were performed and reformatted in the sagittal and coronal plane without the use of contrast. A dose lowering technique was utilized adhering to the principles of ALARA. COMPARISON: None. FINDINGS: No fractures. No subluxation. Prevertebral soft tissues and the C1-C2 interval are intact. No pneumothorax. IMPRESSION: No fractures within the cervical spine. THORACIC SPINE 3 VIEWS HISTORY: fall, thoracic back pain COMPARISON: Abdomen and pelvis CT 01/24/2023. FINDINGS: Mild anterior wedging at T11 and T12 is similar to the prior CT examination. Therefore, this is likely chronic. No acute fractures within the thoracic spine. Mild degenerative disc disease throughout the thoracic spine. Paravertebral soft tissues are unremarkable. No subluxation. IMPRESSION: 1. No acute fractures within the thoracic spine. 2. Mild anterior wedging at T11 and T12 is similar to the prior CT examination and is therefore likely chronic. Medications Administered ER Medications Given: Normal saline @ 100ml/hr Unasyn 3000mg IV Code Status & VTE Plan Code Status Full - confirmed with son over the phone, unable to contact his VTE Prophylaxis Plan VTE Prophylaxis will be ordered: No PG Care Time/CCT Total # of Minutes Spent Total Time Spent with Patient: Total time spent is greater than 50% in coordination of care (as documented) at patient's floor/unit and/or counseling patient: Coding Level of Care Code 09268 INT INP/OBS CARE 3/75MIN Diagnoses Subdural hematoma S06.5XAA Catheter-associated urinary tract infection T83.511A; N39.0 Laceration of head S01.91XA Chronic indwelling Lopez catheter Z97.8 Renal transplant recipient Z94.0 Obstructive sleep apnea G47.33 Acute metabolic encephalopathy G93.41 Hypertension I10 Mild cognitive impairment G31.84
--- NOTE | 2023-01-30 11:51 | XRay Report ---
THORACIC SPINE 3 VIEWS HISTORY: fall, thoracic back pain COMPARISON: Abdomen and pelvis CT 01/24/2023. FINDINGS: Mild anterior wedging at T11 and T12 is similar to the prior CT examination. Therefore, thi s is likely chronic. No acute fractures within the thoracic spine. Mild degenerative disc disease thr oughout the thoracic spine. Paravertebral soft tissues are unremarkable. No subluxation. IMPRESSION: 1. No acute fractures within the thoracic spine. 2. Mild anterior wedging at T11 and T12 is similar to the prior CT examination and is therefore likel y chronic. ACT 112: Negative or not required by law. Electronically signed by: Constantin Reeves M.D. 01/30/2023 11:49 AM
--- NOTE | 2023-01-30 11:53 | XRay Report ---
XR chest 1V not portable CLINICAL HISTORY: fall TECHNIQUE: Single frontal radiograph of the chest was obtained. Comparison: Comparison is made to chest radiograph 12/02/2022 FINDINGS: No lines and tubes are seen. The cardiomediastinal silhouette is normal. The lungs are clear. No evid ence of pleural effusion or pneumothorax. IMPRESSION: No acute chest disease. ACT 112: Negative or not required by law. Electronically signed by: Kevin Saleh M.D. 01/30/2023 11:52 AM
--- NOTE | 2023-01-30 11:59 | CT Scan Report ---
CT SCAN OF THE BRAIN WITHOUT IV CONTRAST CLINICAL HISTORY: Subdural hematoma. COMPARISON STUDY: CT scans of the brain dated 01/30/2023 and 11/02/2022. TECHNIQUE: Unenhanced axial CT scan of the brain is performed from the vertex to the skull base. A do se lowering technique was utilized adhering to the principles of ALARA. CT DOSE: 625.8 mGy.cm FINDINGS: Brain parenchyma: A mixed attenuation subdural hemorrhage along the right convexity has not significa ntly change from today's earlier examination. This measures up to 7 mm in maximum dimension. There is also a small mixed attenuation subdural hemorrhage along the left frontal convexity. This is seen on image #15 and measures up to 5.5 mm in thickness. There is no significant associated mass effect. Th ere is age-related involutional change noting [id number] subcortical and periventricular microa ngiopathic disease. There is no parenchymal hemorrhage, midline shift, or evidence of acute territori al ischemia by CT criteria. Mineralization is noted in the basal ganglia. French-white matter different iation is preserved. Ventricles, sulci, cisterns: Prominent secondary to involutional change. Intracranial vasculature: There is atherosclerotic calcification of the cavernous carotid and vertebr al arteries. Calvarium: Unremarkable. Sinuses and mastoids: There is trace mucosal thickening within the ethmoid sinuses. The remaining vis ualized paranasal sinuses are clear. The mastoid air cells are well pneumatized. Cerumen is seen in t he external auditory canals. Orbits: The bony orbits are grossly intact. There are bilateral ocular lens implants. IMPRESSION: 1. Unchanged appearance of acute on subacute appearing bilateral subdural hemorrhages as compared to today's earlier examination. These are new from the 11/02/2022 examination. 2. There is no parenchymal hematoma, midline shift, or evidence of acute territorial ischemia by CT c tati. ACT 112: Negative or not required by law. Electronically signed by: Dallas Ann M.D. 01/30/2023 11:57 AM
[2023-01-30] MEDS: LACTATED RINGER'S 1,000 ML IV SCH (18:48)
[2023-01-30] MEDS: AMPICILLIN/SULBACTAM SOD 3,000 MG in SODIUM CHLOR 0.9% MINI-B 100 ML IV SCH ×2 (19:47→23:54)
[2023-01-30] MEDS: TACROLIMUS 1 MG CAP PO SCH (21:25)
[2023-01-30] MEDS: MYCOPHENOLATE MOFETIL 250 MG CAP PO SCH (21:25)
[2023-01-30] MEDS: ATORVASTATIN 10 MG TAB PO SCH (21:25)
[2023-01-30] MEDS: MICONAZOLE NITRATE POWDER 85 GM EXT SCH (21:26)
[2023-01-30] MEDS: BRIMONIDINE TARTRATE 0.2% 5ML OPB SCH (21:26)
[2023-01-31] MEDS: AMPICILLIN/SULBACTAM SOD 3,000 MG in SODIUM CHLOR 0.9% MINI-B 100 ML IV SCH ×3 (05:31→16:50)
[2023-01-31] MEDS: LACTATED RINGER'S 1,000 ML IV SCH (05:31)
[2023-01-31 06:35] LABS: Basophils # (auto) 0.05 K/uL (0.00-0.20); Basophils % (auto) 0.8 %; Eosinophils # (auto) 0.11 K/uL (0.00-0.50); Eosinophils % (auto) 1.8 %; Hematocrit (blood only) 37.6 % (42.0-52.0); Hemoglobin 13.1 g/dl (14.0-18.0); Immature Granulocytes # (auto) 0.01 K/uL (0.01-0.20); Immature Granulocytes % (auto) 0.2 %; Lymphocytes % (auto) 16.4 %; Mean Corpuscular Hemoglobin 30.4 pg (25.0-34.0); Mean Corpuscular Hgb Conc 34.8 g/dL (32.0-36.0); Mean Corpuscular Volume 87.2 fL (80.0-100.0); Mean Platelet Volume 8.8 fL (9.4-12.4); Monocytes # (auto) 0.47 K/uL (0.11-0.59); Monocytes % (auto) 7.7 %; Neutrophils # (auto) 4.44 K/uL (1.40-6.50); Neutrophils % (auto) 73.1 %; Platelet Count 107 K/uL (130-400); RDW Coefficient of Variation 12.2 % (11.5-14.5); RDW Standard Deviation 39.2 fL (36.4-46.3); Red Blood Count 4.31 M/uL (4.70-6.10); White Blood Count 6.08 K/ul (4.8-10.8)
[2023-01-31 07:01] LABS: BUN Creatinine Ratio 14.8 (10-20); Calcium 9.2 mg/dl (8.6-10.3); Creatinine Clr Calc Pharmacy 51.9 ml/min; Est GFR (African American) 64.5 ml/min; Est GFR (Non-African American) 55.6 ml/min; Potassium 3.8 mmol/L (3.5-5.1)
[2023-01-31] MEDS: MICONAZOLE NITRATE POWDER 85 GM EXT SCH ×2 (08:16→21:17)
[2023-01-31] MEDS: MYCOPHENOLATE MOFETIL 250 MG CAP PO SCH ×2 (08:16→21:16)
[2023-01-31] MEDS: SERTRALINE HCL 50 MG TABLET PO SCH (08:16)
[2023-01-31] MEDS: TACROLIMUS 1 MG CAP PO SCH ×2 (08:16→21:16)
--- NOTE | 2023-01-31 12:02 | CT Scan Report ---
CT head/brain wo con CLINICAL HISTORY: f/u SDH Technique: Contiguous axial CT images of the head were acquired from the base of the skull to the anish shira without intravenous contrast administration. Images were viewed in brain, subdural and bone [facility]. Automated dose lowering techniques and/or adjustment according to patient size were utilized for this exam. Comparison: Comparison is made to CT head 01/30/2023 Findings: Again seen are small bilateral subdural hernias with expected evolutionary changes. No new hemorrhage is seen. Imaged portions of the paranasal sinuses and mastoid air cells are clear. The orbits appear normal. There are no acute fractures of the calvaria or scalp swelling. Impression: Expected evolutionary changes of bilateral subdural hemorrhages, late acute on subacute. No evidence of new hemorrhage. ACT 112: Negative or not required by law. Electronically signed by: Kevin Saleh M.D. 01/31/2023 12:00 PM
--- NOTE | 2023-01-31 13:19 | Nephrology Consultation ---
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 Admitted after a fall and found to have bilateral subdural hemorrhage. No acute neurological symptoms but somewhat confused and this is his baseline. With history of recurrent urinary tract infection, urinalysis on admission showing 4+ bacteria, started on Unasyn. Renal function seems to be at baseline. Electrolyte acceptable. Blood pressure slightly elevated but volume status acceptable. -- Continue on home dose of tacrolimus and CellCept -- Agree with continuing on Unasyn with history of recurrent urinary tract infection and urinalysis with 4+ bacteria -- Encourage p.o. intake, avoid nephrotoxic medications, left arm nephrology precaution ( AVF) Thank you for allowing me to participate in your patient's care. It was a pleasure to see Kevin.. History of Present Illness Reason for Consultation: Renal transplant status. Attending Physician: Lis Dixon MD History of Present Illness Mr. 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 Nephrology consult was requested for management of immunosuppression with history of renal transplant. Electronic medical records are reviewed in detail during patient's visit. Kevin was brought to ER yesterday after at the halfway where he was found in the floor with face covered in blood. CT head showed subdural hemorrhage. [facility] [place] neurosurgery was consulted and recommended repeat CT which was done after 12 hours and showed expected evolutionary changes of bilateral subdural he morrhages, no evidence of new hemorrhage. He was somewhat confused, unclear whether this was his baseline but was comfortable. Was awake and alert and answered few questions. Renal function stable, creatinine was 1.5 on admission and improved to 1.2 this morning. Has been getting some IV fluid. Has history of recurrent urinary tract infection with indwelling Lopez catheter, last UTI was in November. Urinalysis on admission showed 4+ bacteria and started on Unasyn. 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 He developed ESKD in around 2003 and underwent a preemptive DDKT but the allograft quickly failed within 2 weeks reportedly due to hyperacute rejection and the transplant was removed in this setting. He was then on maintenance hemodialysis for a period of time. Has a functioning left RC AVF. In a short period of time,he had a second DDKT which has been functioning well. He is immunosuppressed with mycophenolate mofetil 250 mg BID and tacrolimus 1 mg BID. Complications of immunosuppression include multiple dermatologic lesions particularly on his scalp and face. Some of these were actinic keratoses and some squamous cell carcinomas. Medical history also includes hypertension, hypercholesterolemia, hyperglycemia, complex sleep apnea syndrome, as well as memory loss. Has indwelling Lopez catheter for history of urinary retention, not able to do intermittent self- catheterization. Has been having recurrent urinary tract infection. Allergies Allergy/AdvReac Type Severity Reaction Status Date / Time lisinopril AdvReac Intermediate Cough Verified 01/16/23 11:20 Home Medications Medication Instructions Recorded Confirmed Type acetaminophen 325 mg capsule 650 mg PO Q4H PRN temp>100.4/pain 06/30/22 12/28/22 History miconazole nitrate 2 % topical 1 applic EXT Q12 #85 grams 11/08/22 12/28/22 Rx powder (Desenex) aspirin 81 mg tablet,delayed 81 mg PO DAILY #90 tabs 12/01/22 12/28/22 Rx release atorvastatin 10 mg tablet 10 mg PO QPM #90 tabs 12/01/22 12/28/22 Rx brimonidine 0.2 % eye drops 1 drp OPB HS #15 mL 12/01/22 12/28/22 Rx cholecalciferol (vitamin D3) 10 400 unit PO QAM #90 caps 12/01/22 12/28/22 Rx mcg (400 unit) capsule lidocaine 4 % topical patch 1 patch topical DAILY PRN pain #30 12/01/22 12/28/22 Rx (Salonpas (lidocaine)) ea multivitamin with minerals 1 tab PO HS #90 tabs 12/01/22 12/28/22 Rx omega-3 fatty acids 1,000 mg 1,000 mg PO DAILY #90 caps 12/01/22 12/28/22 Rx capsule potassium chloride 10 mEq 10 meq PO DAILY #90 tabs 12/01/22 12/28/22 Rx tablet,extended release psyllium husk 3.4 gram/5.4 gram 1 tbsp PO DAILY #660 grams 12/01/22 12/28/22 Rx oral powder (Metamucil) calcium carbonate 200 mg calcium 200 mg PO AMHS 12/02/22 12/28/22 History (500 mg) chewable tablet (Tums) magnesium oxide 400 mg PO HS 12/02/22 12/28/22 History sertraline 50 mg tablet 50 mg PO DAILY #90 tabs 01/02/23 Rx tacrolimus 1 mg capsule, 1 mg PO BID #180 caps 01/02/23 Rx immediate-release amlodipine 5 mg tablet 5 mg PO DAILY #90 tabs 01/09/23 Rx mycophenolate mofetil 250 mg 250 mg PO BID #60 ea 01/19/23 Rx capsule ciprofloxacin HCl 500 mg tablet 500 mg PO BID #14 tabs 01/27/23 Rx Patient History Medical History AV fistula Depression Hearing deficit Hx of basal cell carcinoma Hx of squamous cell carcinoma Hypercholesterolemia Obstructive sleep apnea Polycystic kidney Pre-syncope Prediabetes Primary hypertension Unintentional weight loss Surgical History H/O right inguinal hernia repair H/O transurethral resection of prostate History of cataract surgery History of colonoscopy S/P kidney transplant Status post Mohs surgery Family History Grandfather (Maternal) Cardiac disorder Grandmother (Paternal) Cardiac disorder Grandfather (Paternal) Cardiac disorder Mother Cardiac disorder Hypertension Grandmother (Maternal) Diabetes Brother Hypertension Sister Renal transplant, status post Hypertension Other No family history of adverse response to anesthesia Social History Smoking Status: Never smoker Tobacco Type: Cigarettes Second Hand Exposure: No; Do You Dip or Chew Tobacco: No; Hx Alcohol Use: No Hx Substance Use: No Preferred Language: Mexican Communication Ability: Effective Visual Impairment: No Limitations Hearing Ability: Normal Room Designer Required: No Beliefs That Will Affect Care: None marital status: Current Living Situation: Skilled Nursing current occupational status: retired How many Children do You have: 2 Other Information That Helps Us Care for You: No Feels Safe at Home: Declines to Answer Diet: regular during the past year weight has: decreased > 10 lbs Dental Care, Regularly: No Seatbelt Use: always Sunscreen Use: Yes Assistive Devices: Mechanical Lift, Walker and Wheelchair Review of Systems Review of Systems: Detailed review of system was otherwise unremarkable except mentioned above. Physical Exam Constitutional: WD/WN, vitals as above + ill appearing; no acute distress Eyes: + anicteric sclerae Neck: normal visual inspection Respiratory: no respiratory distress Auscultation: lungs clear to auscultat ion bilaterally Cardiovascular: Rate/Rhythm: regular rate and regular rhythm Heart Sounds: normal S1 and normal S2 Extremities: no edema Gastrointestinal (Abdomen): Inspection/Auscultation: abdomen normal to inspection Percussion/Palpation: abdomen soft; abdomen nontender Right lower abdomen allograft area nontender. Musculoskeletal: Extremities: extremities normal to inspection Skin: no rashes, warm and dry Neurologic: awake; no focal motor deficits Psychiatric: Affect: euthymic affect Awake, alert Results & Data Vital Signs (Past 12 Hours) Vital Signs Temp Pulse Pulse Resp BP Pulse Ox O2 Del Method 01/31/23 11:20 36.6 C 81 18 159/64 H 94 Room Air 01/31/23 09:12 73 01/31/23 07:16 36.6 C 71 17 163/67 H 98 Room Air 01/31/23 03:30 36.7 C 84 18 166/80 H 99 Room Air PG Care Time/CCT Total # of Minutes Spent Total Time Spent with Patient: Total time spent is greater than 50% in coordination of care (as documented) at patient's floor/unit and/or counseling patient: Coding Level of Care Code 19561 INT INP/OBS CARE 3/75MIN Diagnoses Renal transplant recipient Z94.0 Subdural hematoma S06.5XAA Hypertension I10 Catheter-associated urinary tract infection T83.511A; N39.0
--- NOTE | 2023-01-31 15:34 | Hospitalist Progress Note ---
Date of Service January 31, 2023 Assessment & Plan (1) Subdural hematoma: Plan: ER provider discussed with neurosurgery and did not recommend transfer - recommended repeat CT head--> performed at 12 hrs and no change will repeat CT head again today over 24 hrs from the first--> no change in acute on chronic SDH bilar frontal Continue to observe neuro checks, is encephalopathic but could also be from UTI Plan to repeat head CT in 1 week Needs Neuro follow up-is established with Neuro at [place] holding home ASA (2) Catheter-associated urinary tract infection: Plan: Suspect this is the cause of his acute encephaloapthy although subdural causing confusion not ruled out but presentation is concsistent with prior UTIs UA abnormal and c/w infection Lopez last exchanged 12/30/22 with Urology has recurrent UTIs probably from chronic Lopez--> consult Urol for further advaice, any other intervention? possibly exchanging Lopez more often? Blood cultures no growth, urine culture mixed tom/contaminated but prior cxs sensitive to Unasyn-continue (3) Laceration of head: Plan: 5 mkie placed in ER Remove in 7-10 days around 02/07 (4) Chronic indwelling Lopez catheter: Plan: for chronic retention consult Urology needs excahnged Lopez (5) Renal transplant recipient: Plan: Continue tacrolimus and mycophenolate Consult nephrology appreciated renal function stable (6) Obstructive sleep apnea: Plan: unable to tolerate CPAP (7) Acute metabolic encephalopathy: Plan: ?infection vs. subdural Continue to monitor back to baseline (8) Hypertension: Plan: resume amlodipine for HTN (9) Mild cognitive impairment: Plan: Underlying dementia with multiple prior admissions with hallucinations while in hospital Plan VTE Prophyalxis - contraindicated in setting of subdural Diet - regular Disposition - continued stay, await PT/OT evals and will likely need SNF. Disc ussed all care with on phone for an addition 21 min today. She asks about [facility] for rehab if needed Spent 51 min intotal on this patient Admission and Anticipated Discharge Date Admission Date: January 30, 2023 Subjective pt confused, denies headache, can't tell me where he is. tele with NSR, PACs, normal rates Physical Exam Constitutional: well developed Eyes: PERRL, conjunctivae normal, anicteric sclerae ENMT: posterior scalp with lac with mike, bandage in place, no bleeding Respiratory: normal respiratory effort, lungs clear to auscultation Cardiovascular: RRR, no murmur, no edema Gastrointestinal (Abdomen): normal bowel sounds, soft, nontender, no hepatosplenomegaly Psychiatric: Orientation: alert and cooperative; + not oriented x 3 Genitourinary: Lopez in palce Results & Data Results & Data Vital Signs (Past 12 Hours) Vital Signs Temp Pulse Pulse Resp BP Pulse Ox O2 Del Method 01/31/23 15:18 36.8 C 76 16 158/78 H 96 Room Air 01/31/23 11:20 36.6 C 81 18 159/64 H 94 Room Air 01/31/23 09:12 73 01/31/23 07:16 36.6 C 71 17 163/67 H 98 Room Air Laboratory Results CBC, BMP, urine cx reviewed Diagnostic Findings CT head reviewed PG Care Time/CCT Total # of Minutes Spent Total Time Spent with Patient: Total time spent is greater than 50% in coordination of care (as documented) at patient's floor/unit and/or counseling patient: Coding Level of Care Code 15061 SUB INP/OBS CARE 3/50MIN Diagnoses Subdural hematoma S06.5XAA Catheter-associated urinary tract infection T83.511A; N39.0 Laceration of head S01.91XA Chronic indwelling Lopez catheter Z97.8 Renal transplant recipient Z94.0 Obstructive sleep apnea G47.33 Acute metabolic encephalopathy G93.41 Hypertension I10 Mild cognitive impairment G31.84
[2023-01-31] MEDS: amLODIPine BESYLATE 5 MG TAB PO SCH (16:50)
[2023-01-31] MEDS: BRIMONIDINE TARTRATE 0.2% 5ML OPB SCH (21:16)
[2023-01-31] MEDS: ATORVASTATIN 10 MG TAB PO SCH (21:17)
[2023-02-01] MEDS: AMPICILLIN/SULBACTAM SOD 3,000 MG in SODIUM CHLOR 0.9% MINI-B 100 ML IV SCH ×4 (00:32→17:00)
[2023-02-01] MEDS: SERTRALINE HCL 50 MG TABLET PO SCH ×2 (08:08→08:15)
[2023-02-01] MEDS: MYCOPHENOLATE MOFETIL 250 MG CAP PO SCH ×3 (08:08→20:48)
[2023-02-01] MEDS: TACROLIMUS 1 MG CAP PO SCH ×3 (08:08→20:48)
[2023-02-01] MEDS: amLODIPine BESYLATE 5 MG TAB PO SCH ×3 (08:08→10:01)
[2023-02-01] MEDS: MICONAZOLE NITRATE POWDER 85 GM EXT SCH ×2 (08:09→20:49)
--- NOTE | 2023-02-01 08:34 | Urology Consultation ---
Date of Consultation February 01, 2023 Assessment & Plan (1) Chronic indwelling Lopez catheter: (2) Acute UTI: 82yoM admitted for subdural hematomas after fall. Patient afebrile, hemodynamically stable Urine culture 01/30 showed more than 3 types of organisms present, all high counts, no sensitivities Blood cultures 01/30 showing no growth x24 hours Currently on IV Unasyn Lopez is patent and draining appropriately Catheter was last exchanged on ecommend exchange Lopez catheter now Maintain Lopez catheter for management of urinary retention Pt likely colonized due to indwelling Lopez catheter Can continue with antibiotics for suspected UTI, though culture did not isolate any specific bacteria Suspect ongoing confusion is related to subdural hematomas No acute intervention warranted at this time Will arrange follow-up with urology for ongoing management will sign off, contact our service with any additional questions or concerns History of Present Illness Requesting Physician: Dr. Dixon Attending Physician: Lis Dixon MD History of Present Illness This is an 82-year-old male with past medical history of renal transplant, polycystic kidney, urinary retention, and chronic indwelling Lopez catheter who was admitted on 01/30/2023 for subdural hematoma after fall. Patient experienced an unwitnessed fall at home. He presented to the ER for evaluation on 01/30. His scalp laceration was repaired in the emergency department. Patient had altered mental status. He underwent head CT which reve aled bilateral acute on chronic subdural hematomas. UA on arrival was suspicious for infection. He was given IV Unasyn. Patient was admitted to the hospital medicine service for further evaluation and management. Urology is consulted for recurrent UTI, Lopez catheter. Patient is known to our service, follows with Dr. Horne for urinary retention. His office cystoscopy did not show any significant obstruction, poor contractility suspected. Urinary retention has been managed with Lopez catheter exchanged monthly. Last exchange was on 12/30 per records. Chart review: Afebrile Labs reatinine 1.22, WBC 6.08, hemoglobin 13.1 UA on arrival notable for 3+ blood, 2+ protein, positive nitrates, 1+ leukocyte Estrace, 10-30 WBC, >30 RBC, 3+ bacteria Urine culture 01/30 showed more than 3 types of organisms present, all high counts, no further identifications or sensitivities to follow On IV Unasyn Patient seen and examined at bedside. On arrival, he is talking to himself, appears confused. Unable to provide meaningful history or ROS. Lopez is patent and draining a clear light shaheen. Allergies Allergy/AdvReac Type Severity Reaction Status Date / Time lisinopril AdvReac Intermediate Cough Verified 01/16/23 11:20 Home Medications Medication Instructions Recorded Confirmed Type acetaminophen 325 mg capsule 650 mg PO Q4H PRN temp>100.4/pain 06/30/22 12/28/22 History miconazole nitrate 2 % topical 1 applic EXT Q12 #85 grams 11/08/22 12/28/22 Rx powder (Desenex) aspirin 81 mg tablet,delayed 81 mg PO DAILY #90 tabs 12/01/22 12/28/22 Rx release atorvastatin 10 mg tablet 10 mg PO QPM #90 tabs 12/01/22 12/28/22 Rx brimonidine 0.2 % eye drops 1 drp OPB HS #15 mL 12/01/22 12/28/22 Rx cholecalciferol (vitamin D3) 10 400 unit PO QAM #90 caps 12/01/22 12/28/22 Rx mcg (400 unit) capsule lidocaine 4 % topical patch 1 patch topical DAILY PRN pain #30 12/01/22 12/28/22 Rx (Salonpas (lidocaine)) ea multivitamin with minerals 1 tab PO HS #90 tabs 12/01/22 12/28/22 Rx omega-3 fatty acids 1,000 mg 1,000 mg PO DAILY #90 caps 12/01/22 12/28/22 Rx capsule potassium chloride 10 mEq 10 meq PO DAILY #90 tabs 12/01/22 12/28/22 Rx tablet,extended release psyllium husk 3.4 gram/5.4 gram 1 tbsp PO DAILY #660 grams 12/01/22 12/28/22 Rx oral powder (Metamucil) calcium carbonate 200 mg calcium 200 mg PO AMHS 12/02/22 12/28/22 History (500 mg) chewable tablet (Tums) magnesium oxide 400 mg PO HS 12/02/22 12/28/22 History sertraline 50 mg tablet 50 mg PO DAILY #90 tabs 01/02/23 Rx tacrolimus 1 mg capsule, 1 mg PO BID #180 caps 01/02/23 Rx immediate-release amlodipine 5 mg tablet 5 mg PO DAILY #90 tabs 01/09/23 Rx mycophenolate mofetil 250 mg 250 mg PO BID #60 ea 01/19/23 Rx capsule ciprofloxacin HCl 500 mg tablet 500 mg PO BID #14 tabs 01/27/23 Rx Patient History Medical History Pre-syncope Hx of basal cell carcinoma AV fistula LEFT ARM>HAD DIALYSIS BEFORE KIDNEY *2005 TX FOR 5 MONTHS Hx of squamous cell carcinoma Unintentional weight loss Hearing deficit Primary hypertension Prediabetes Obstructive sleep apnea unable to tolerate cpap machine. Depression Hypercholesterolemia Polycystic kidney Surgical History History of cataract surgery RT/LEFT H/O right inguinal hernia repair S[place]P [place] [facility] [place] polycystic [place] History of colonoscopy Status post Mohs surgery H/O transurethral resection of prostate Family History Grandfather (Maternal) Cardiac disorder Grandmother (Paternal) Cardiac disorder Grandfather (Paternal) Cardiac disorder Mother Cardiac disorder Hypertension Grandmother (Maternal) Diabetes Brother Hypertension Sister Renal transplant, status post Hypertension Other No family history of adverse response to anesthesia Social History Smoking Status: Never smoker Tobacco Type: Cigarettes Second Hand Exposure: No; Do You Dip or Chew Tobacco: No; Hx Alcohol Use: No Hx Substance Use: No Preferred Language: Mongolian Communication Ability: Impaired Visual Impairment: No Limitations Hearing Ability: Normal Shearing Machine Feeder Required: No Beliefs That Will Affect Care: None marital status: Current Living Situation: [facility] current occupational status: retired How many Children do You have: 2 Other Information That Helps Us Care for You: No Feels Safe at Home: Declines to Answer Diet: regular during the past year weight has: decreased > 10 lbs Dental Care, Regularly: No Seatbelt Use: always Sunscreen Use: Yes Assistive Devices: Walker Review of Systems Review of Systems: Unobtainable due to cognitive status Physical Exam Constitutional: well developed and well nourished; no acute distress Respiratory: normal respiratory effort; no respiratory distress and no labored breathing Gastrointestinal (Abdomen): Inspection/Auscultation: abdomen normal to inspection; abdomen not distended Neurologic: awake and + confused Psychiatric: Orientation: alert Genitourinary: Lopez patent and draining clear light shaheen Results & Data Vital Signs (Past 12 Hours) Vital Signs Temp Pulse Pulse Resp BP Pulse Ox O2 Del Method 02/01/23 07:35 36.4 C L 83 18 151/58 H 97 Room Air 02/01/23 03:00 35.8 C L 84 18 163/77 H 99 Room Air 02/01/23 02:18 72 01/31/23 22:15 36.8 C 74 18 151/66 H 97 Room Air PG Care Time/CCT Total # of Minutes Spent Total Time Spent with Patient: Total time spent is greater than 50% in coordination of care (as documented) at patient's floor/unit and/or counseling patient: Coding Level of Care Code 22830 INT INP/OBS CARE 2/55MIN Diagnoses Chronic indwelling Lopez catheter Z97.8 Acute UTI N39.0
--- NOTE | 2023-02-01 13:05 | Nephrology Progress Note ---
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 Admitted after a fall and found to have bilateral subdural hemorrhage. No acute neurological symptoms but somewhat confused and this is his baseline. With h istory of recurrent urinary tract infection, urinalysis on admission showing 4+ bacteria, started on Unasyn. Renal function seems to be at baseline. Electrolyte acceptable. Blood pressure improved. -- Continue tacrolimus and CellCept -- Agree with continuing on Unasyn with history of recurrent urinary tract infection and urinalysis with 4+ bacteria -- Encourage p.o. intake, avoid nephrotoxic medications, left arm nephrology precaution ( AVF) --as kidney function stable at baseline, clinically otherwise stable, will follow peripherally while in patient. Admission and Anticipated Discharge Date Admission Date: January 30, 2023 Subjective Kevin was seen and evaluated this morning. He seems comfortable but confused. Vitals stable. Review of Systems Review of Systems: Detailed review of system was not possible. Physical Exam Constitutional: WD/WN, vitals as above + ill appearing; no acute distress Eyes: + anicteric sclerae Respiratory: no respiratory distress Auscultation: lungs clear to auscultation bilaterally Musculoskeletal: Extremities: extremities normal to inspection Skin: no rashes, warm and dry Neurologic: awake; no focal motor deficits Psychiatric: Confused. Results & Data Vital Signs (Past 12 Hours) Vital Signs Temp Pulse Pulse Resp BP Pulse Ox O2 Del Method 02/01/23 11:23 36.8 C 91 H 18 117/62 95 Room Air 02/01/23 11:17 72 02/01/23 07:35 36.4 C L 83 18 151/58 H 97 Room Air 02/01/23 03:00 35.8 C L 84 18 163/77 H 99 Room Air 02/01/23 02:18 72 PG Care Time/CCT Total # of Minutes Spent Total Time Spent with Patient: Total time spent is greater than 50% in coordination of care (as documented) at patient's floor/unit and/or counseling patient: Coding Level of Care Code 06442 SUB INP/OBS CARE 2/35MIN Diagnoses Renal transplant recipient Z94.0 Subdural hematoma S06.5XAA Hypertension I10 Catheter-associated urinary tract infection T83.511A; N39.0
--- NOTE | 2023-02-01 15:54 | Hospitalist Progress Note ---
Date of Service February 01, 2023 Assessment & Plan (1) Subdural hematoma: Plan: Presented with fall and head trauma/lac. He also had a fall a few weeks prior to that as per . Both unwitnessed falls as he lives in [facility] Bilat frontal acute on chronic SDHs seen on CT head. ER provider discussed with neurosurgery and did not recommend transfer - recommended repeat CT head--> performed at 12 hrs and again at 24 hrs--no change Continue to observe neuro checks, is encephalopathic but could also be from UTI Plan to repeat head CT in 1 week Needs Neuro follow up-is established with Neuro at [place] holding home ASA (2) Acute metabolic encephalopathy: Plan: ?infection vs. subdural Continue to monitor back to baseline SLightly improved today but still not at baseline-doubt from SHDs but perhaps from concussion on top of UTI and dementia (3) Catheter-associated urinary tract infection: Plan: Suspect this is the cause of his acute encephalopathy although subdural causing confusion not ruled out but presentation is consistent with prior UTIs UA abnormal and c/w infection Lopez exchanged here on 02/01 Has chronic Lopez in for poor bladder motility has recurrent UTIs probably from chronic Lopez--> consult Urol for further advaice, any other intervention? possibly exchanging Lopez more often? Urology did not give any specific recs thus far but to f/u as outpt Blood cultures no growth, urine culture mixed tom/contaminated but prior cxs sensitive to Unasyn-continue same abx but will repeat UA and Ur cx now that Lopez has been exchanged (4) Laceration of head: Plan: 5 mike placed in ER Plan to remove in 7-10 days around 02/07 (5) Chronic indwelling Lopez catheter: Plan: 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 consult Urology as above (6) Renal transplant recipient: Plan: Continue tacrolimus and mycophenolate Consult nephrology appreciated renal function stable (7) Obstructive sleep apnea: Plan: unable to tolerate CPAP (8) Hypertension: Plan: BPs stable continue amlodipine (9) Mild cognitive impairment: Plan: Underlying dementia with multiple prior admissions with hallucinations while in hospital (10) Kidney lesion, [place], right: Plan: 4.5cm indeterminate lesion seen on Right [place] kidney addressed with Urology who will follow in the office-needs renal US -will order while here Plan VTE Prophyalxis - contraindicated in setting of subdural Diet - regular Disposition - continued stay, await PT/OT evals and will likely need SNF. Admission and Anticipated Discharge Date Admission Date: January 30, 2023 Subjective Pt was more lethargic today as per nursing but I saw him in afternoon and he was more awake and said he was cold, shivering. He said "and it's cold outside" which is quite true. He said he does not feel hungry. I discussed his care with Urology Tele with paced rhythm, PVCs, rates 70-80s Physical Exam Constitutional: well developed Eyes: PERRL, conjunctivae normal, anicteric sclerae Respiratory: normal respiratory effort, lungs clear to auscultation Cardiovascular: RRR, no murmur, no edema Gastrointestinal (Abdomen): normal bowel sounds, soft, nontender, no hepatosplenomegaly Neurologic: follows commands, answers some simple questions restless, moving all four extremities frequently, occasional myoclonic jerks bilat while awake Psychiatric: Orientation: alert and cooperative; + not oriented x 3 Genitourinary: Lopez in place with dark yellow urine Results & Data Results & Data Vital Signs (Past 12 Hours) Vital Signs Temp Pulse Pulse Resp BP Pulse Ox O2 Del Method 02/01/23 11:23 36.8 C 91 H 18 117/62 95 Room Air 02/01/23 11:17 72 02/01/23 07:35 36.4 C L 83 18 151/58 H 97 Room Air Laboratory Results no labs PG Care Time/CCT Total # of Minutes Spent Total Time Spent with Patient: Total time spent is greater than 50% in coordination of care (as documented) at patient's floor/unit and/or counseling patient: Coding Level of Care Code 32382 SUB INP/OBS CARE 2/35MIN Diagnoses Subdural hematoma S06.5XAA Acute metabolic encephalopathy G93.41 Catheter-associated urinary tract infection T83.511A; N39.0 Laceration of head S01.91XA Chronic indwelling Lopez catheter Z97.8 Renal transplant recipient Z94.0 Obstructive sleep apnea G47.33 Hypertension I10 Mild cognitive impairment G31.84 Kidney lesion, [place], right N28.9
[2023-02-01 16:18] LABS: Appearance Urine Cloudy (Clear); Bacteria Urine Automated Negative (Negative); Bilirubin Urine Negative (Negative); Blood Urine 3+ (Negative); Color Urine Orange; Glucose Urine UA Negative (Negative); Ketones Urine 2+ (Negative); Leukocyte Esterase Urine 1+ (Negative); Nitrite Urine Negative (Negative); Protein Urine 2+ (Negative); RBC Urine Automated >30 /hpf (0-4); Specific Gravity Urine 1.026 (1.000-1.030); Urobilinogen Urine Negative (Negative); pH Urine 6.5 (4.5-7.5)
[2023-02-01 16:36] LABS: Cast Urine Automated 0 /lpf (0-5)
--- NOTE | 2023-02-01 17:12 | Ultrasound Report ---
RENAL ULTRASOUND HISTORY: Abnormal CT. Follow-up. right renal mass indeterminate COMPARISON: Abdomen and pelvis CT 01/16/2023. FINDINGS: Right kidney: Difficult evaluation of right kidney due to the multiple cysts resulting in shadowing t hroughout the kidney. The [place] right kidney measuring approximately 13.1 cm length. Multiple cysts again noted a slightly complex 3.3 cm cyst within the periphery the right kidney. The 4.5 cm indeterm inate lesion within the right kidney seen on the prior CT is not clearly identified by this modality. No hydronephrosis. Left kidney: Difficult evaluation of the [place] left kidney. Multiple cysts. The left kidney measurin g approximately 15.5 cm in length. Multiple cysts are noted. Dominant cyst within the lower pole harish ures 10.2 cm and contains a mural nodule which appears to be calcified. This nodule measures 3.4 cm. No hydronephrosis. Bladder: Decompressed by Lopez catheter. Right lower quadrant renal transplant: 11.5 cm in length. No hydronephrosis. Normal corticomedullary differentiation. IMPRESSION: 1. Difficult evaluation of the right kidney due to shadowing from the multiple cysts. Specifically, t he 4.5 cm indeterminate lesion within the right kidney seen on the prior CT is not clearly identified by this modality. 2. Multiple left renal cysts with the dominant 10.2 cm lower pole cyst containing a calcified mural n odule. Follow-up recommended to ensure stability. 3. Normal right lower quadrant renal transplant. No hydronephrosis. 4. The bladder is decompressed by Lopez catheter. ACT 112: Negative or not required by law. Electronically signed by: Constantin Reeves M.D. 02/01/2023 5:09 PM
[2023-02-01] MEDS: BRIMONIDINE TARTRATE 0.2% 5ML OPB SCH (20:47)
[2023-02-01] MEDS: ATORVASTATIN 10 MG TAB PO SCH (20:48)
[2023-02-02] MEDS: AMPICILLIN/SULBACTAM SOD 3,000 MG in SODIUM CHLOR 0.9% MINI-B 100 ML IV SCH ×5 (05:27→23:30)
[2023-02-02 08:14] LABS: Hematocrit (blood only) 38.5 % (42.0-52.0); Hemoglobin 13.7 g/dl (14.0-18.0); Mean Corpuscular Hemoglobin 30.6 pg (25.0-34.0); Mean Corpuscular Hgb Conc 35.6 g/dL (32.0-36.0); Mean Corpuscular Volume 86.1 fL (80.0-100.0); Mean Platelet Volume 8.9 fL (9.4-12.4); Platelet Count 122 K/uL (130-400); RDW Coefficient of Variation 12.1 % (11.5-14.5); RDW Standard Deviation 38.2 fL (36.4-46.3); Red Blood Count 4.47 M/uL (4.70-6.10); White Blood Count 9.52 K/ul (4.8-10.8)
[2023-02-02 08:23] LABS: Albumin Level 3.9 gm/dl (3.4-5.0); BUN Creatinine Ratio 17.4 (10-20); Creatinine Clr Calc Pharmacy 53.7 ml/min; Est GFR (African American) 65.1 ml/min; Est GFR (Non-African American) 56.2 ml/min; Phosphorus 4.3 mg/dl (2.5-4.9); Potassium 3.7 mmol/L (3.5-5.1)
[2023-02-02] MEDS: TACROLIMUS 1 MG CAP PO SCH ×2 (09:34→20:06)
[2023-02-02] MEDS: MYCOPHENOLATE MOFETIL 250 MG CAP PO SCH ×2 (09:34→20:06)
[2023-02-02] MEDS: amLODIPine BESYLATE 5 MG TAB PO SCH (09:35)
[2023-02-02] MEDS: MICONAZOLE NITRATE POWDER 85 GM EXT SCH ×2 (09:35→20:07)
[2023-02-02] MEDS: SERTRALINE HCL 50 MG TABLET PO SCH (09:35)
--- NOTE | 2023-02-02 16:03 | Hospitalist Progress Note ---
Date of Service February 02, 2023 Assessment & Plan (1) Subdural hematoma: Plan: Presented with fall and head trauma/lac. He also had a fall a few weeks prior to that as per . Both unwitnessed falls as he lives in [facility] Bilat frontal acute on chronic SDHs seen on CT head. ER provider discussed with neurosurgery and did not recommend transfer - recommended repeat CT head--> performed at 12 hrs and again at 24 hrs--no change Continue to observe w/ neuro checks, is encephalopathic but could also be from UTI-encephalopathy now much improved Plan to repeat head CT in 1 week-on/around 02/06/23 Needs Neuro follow up-is established with Neuro at [place] holding home ASA (2) Acute metabolic encephalopathy: Plan: 2/2 infection vs. 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 possibly exchanging Lopez more often? Urology did not give any specific recs thus far but to f/u as outpt-will reach out and see if they would consider exchanging Lopez more often Blood cultures no growth, urine culture mixed tom/contaminated but prior cxs sensitive to Unasyn Repeat UA improved with no further nitrites or bacteria, but still with WBCs, fewer epis, Ur cx pending but prelim no growth -continue Unasyn and convert to po Augmentin on discharge to finish out 10 days -f/u Urology after discharge (4) Laceration of head: Plan: 5 mike placed in ER Plan to remove in 7-10 days around 02/07 removed bandage today and advised bid mupirocin and band aid for wound care (5) Chronic indwelling Lopez catheter: Plan: 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 consult Urology as above (6) Renal transplant recipient: Plan: Continue tacrolimus and mycophenolate Consult nephrology appreciated renal function stable (7) Obstructive sleep apnea: Plan: unable to tolerate CPAP (8) Hypertension: Plan: BPs stable continue amlodipine (9) Mild cognitive impairment: Plan: Underlying dementia with multiple prior admissions with hallucinations while in hospital (10) Kidney lesion, [place], right: Plan: 4.5cm indeterminate lesion seen on Right [place] kidney, renal US recommended by Radiology Renal US here could not visualize it due to multiple cysts addressed with Urology who will follow in the office recommend repeat imaging as per Nephrology choice of modality in a few months--> likely CT discussed with on phone who is aware (11) MRSA (methicillin resistant staph aureus) culture positive: Plan: nasal carrier add mupirocin bid to nares x 1 week, and CHG wipes to body x 3 days Plan VTE Prophyalxis - contraindicated in setting of subdural Diet - regular Disposition - continued stay but is progressing/improving, PT/OT recommend SNF. Awaiting placement at [facility] Spent 17 min on phone with patient's on 02/02 discussing his care and plan Admission and Anticipated Discharge Date Admission Date: January 30, 2023 Anticipated date of discharge: 02/03/23 Subjective MUCH improved today. Answering questions, oriented to place and person, eating some food, able to converse. Participated with PT today but only able to stand and required a lot of assistance Tele with NSR, PACs, PVCs, rate 80-90s Physical Exam Constitutional: well developed Eyes: PERRL, conjunctivae normal, anicteric sclerae Respiratory: normal respiratory effort, lungs clear to auscultation Cardiovascular: RRR, no murmur, no edema Gastrointestinal (Abdomen): normal bowel sounds, soft, nontender, no hepatosplenomegaly Skin: lac on posterior scalp with 5 mike, small scab, no erythema or drainage Psychiatric: Orientation: alert, oriented to person, oriented to place and cooperative Results & Data Results & Data Vital Signs (Past 12 Hours) Vital Signs Temp Pulse Pulse Resp BP Pulse Ox O2 Del Method 02/02/23 15:43 36.6 C 90 18 148/82 H 97 Room Air 02/02/23 11:30 36.6 C 84 18 143/68 H 98 Room Air 02/02/23 09:00 80 02/02/23 09:00 Room Air 02/02/23 08:25 36.4 C L 75 20 151/70 H 97 Room Air Laboratory Results CBC, BMP,phos, UA, Ur cx reviewed Diagnostic Findings Renal US reviewed PG Care Time/CCT Total # of Minutes Spent Total Time Spent with Patient: Total time spent is greater than 50% in coordination of care (as documented) at patient's floor/unit and/or counseling patient: Coding Level of Care Code 80165 SUB INP/OBS CARE 2/35MIN Diagnoses Subdural hematoma S06.5XAA Acute metabolic encephalopathy G93.41 Catheter-associated urinary tract infection T83.511A; N39.0 Laceration of head S01.91XA Chronic indwelling Lopez catheter Z97.8 Renal transplant recipient Z94.0 Obstructive sleep apnea G47.33 Hypertension I10 Mild cognitive impairment G31.84 Kidney lesion, [place], right N28.9 MRSA (methicillin resistant staph aureus) culture positive Z22.322
[2023-02-02] MEDS: MUPIROCIN 2% OINT 22 GM TUBE EXT SCH (17:08)
[2023-02-02] MEDS: BRIMONIDINE TARTRATE 0.2% 5ML OPB SCH (20:05)
[2023-02-02] MEDS: ATORVASTATIN 10 MG TAB PO SCH (20:06)
[2023-02-03] MEDS: AMPICILLIN/SULBACTAM SOD 3,000 MG in SODIUM CHLOR 0.9% MINI-B 100 ML IV SCH ×4 (05:34→23:28)
[2023-02-03 06:10] LABS: Basophils # (auto) 0.03 K/uL (0.00-0.20); Basophils % (auto) 0.4 %; Eosinophils # (auto) 0.15 K/uL (0.00-0.50); Hematocrit (blood only) 40.5 % (42.0-52.0); Immature Granulocytes # (auto) 0.03 K/uL (0.01-0.20); Immature Granulocytes % (auto) 0.4 %; Lymphocytes # (auto) 1.57 K/uL (1.20-3.40); Lymphocytes % (auto) 20.6 %; Mean Corpuscular Hemoglobin 30.3 pg (25.0-34.0); Mean Corpuscular Hgb Conc 34.6 g/dL (32.0-36.0); Mean Corpuscular Volume 87.7 fL (80.0-100.0); Mean Platelet Volume 8.8 fL (9.4-12.4); Monocytes # (auto) 0.63 K/uL (0.11-0.59); Monocytes % (auto) 8.3 %; Neutrophils # (auto) 5.21 K/uL (1.40-6.50); Neutrophils % (auto) 68.3 %; Platelet Count 117 K/uL (130-400); RDW Coefficient of Variation 12.3 % (11.5-14.5); RDW Standard Deviation 39.5 fL (36.4-46.3); Red Blood Count 4.62 M/uL (4.70-6.10); White Blood Count 7.62 K/ul (4.8-10.8)
[2023-02-03 06:31] LABS: BUN Creatinine Ratio 16.8 (10-20); Creatinine Clr Calc Pharmacy 52.7 ml/min; Est GFR (African American) 62.6 ml/min; Potassium 3.6 mmol/L (3.5-5.1)
[2023-02-03] MEDS: TACROLIMUS 1 MG CAP PO SCH ×2 (08:23→20:42)
[2023-02-03] MEDS: SERTRALINE HCL 50 MG TABLET PO SCH (08:23)
[2023-02-03] MEDS: MUPIROCIN 2% OINT 22 GM TUBE EXT SCH ×2 (08:24→20:43)
[2023-02-03] MEDS: MICONAZOLE NITRATE POWDER 85 GM EXT SCH ×2 (08:24→20:41)
[2023-02-03] MEDS: amLODIPine BESYLATE 5 MG TAB PO SCH (08:24)
[2023-02-03] MEDS: MYCOPHENOLATE MOFETIL 250 MG CAP PO SCH ×2 (08:24→20:42)
--- NOTE | 2023-02-03 16:29 | Hospitalist Progress Note ---
Date of Service February 03, 2023 Assessment & Plan (1) Subdural hematoma: Plan: Presented with fall and head trauma/lac. He also had a fall a few weeks prior to that as per . Both unwitnessed falls as he lives in [facility] Bilat frontal acute on chronic SDHs seen on CT head. ER provider discussed with neurosurgery and did not recommend transfer - recommended repeat CT head--> performed at 12 hrs and again at 24 hrs--no change Continue to observe w/ neuro checks Encephalopathy now significantly improved Plan to repeat head CT in 1 week-on/around 02/06/23 Needs Neuro follow up-is established with Neuro at [place] holding home ASA (2) Acute metabolic encephalopathy: Plan: 2/2 infection vs. 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 possibly exchanging Lopez more often? Urology did not give any specific recs thus far but to f/u as outpt-will reach out and see if they would consider exchanging Lopez more often Blood cultures no growth, urine culture mixed tom/contaminated but prior cxs sensitive to Unasyn Repeat UA improved with no further nitrites or bacteria, but still with WBCs, fewer epis, Ur cx pending but prelim no growth -continue Unasyn and convert to po Augmentin on discharge to finish out 10 days -f/u Urology after discharge -consider adding on methanamine or cranberry extract to prevent UTIs (4) Laceration of head: Plan: 5 mike placed in ER Plan to remove in 7-10 days around 02/07 -continnue bid mupirocin and band aid for wound care (5) Chronic indwelling Lopez catheter: Plan: 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 consult Urology as above (6) Renal transplant recipient: Plan: Continue tacrolimus and mycophenolate Consult nephrology appreciated renal function stable (7) Obstructive sleep apnea: Plan: unable to tolerate CPAP (8) Hypertension: Plan: BPs stable continue amlodipine (9) Mild cognitive impairment: Plan: Underlying dementia with multiple prior admissions with hallucinations while in hospital (10) Kidney lesion, [place], right: Plan: 4.5cm indeterminate lesion seen on Right [place] kidney, renal US recommended by Radiology Renal US here could not visualize it due to multiple cysts addressed with Urology who will follow in the office recommend repeat imaging as per Nephrology choice of modality in a few months--> likely CT discussed with on phone who is aware (11) MRSA (methicillin resistant staph aureus) culture positive: Plan: nasal carrier add mupirocin bid to nares x 1 week, and CHG wipes to body x 3 days Plan VTE Prophyalxis - contraindicated in setting of subdural Diet - regular Disposition -progressing/improving, PT/OT recommend SNF. Awaiting placement at [facility] SNF. Medically stable for discharge but no insurance auth likely till Monday Admission and Anticipated Discharge Date Admission Date: January 30, 2023 Subjective Significantly improved today moreso than previous. Conversational, still a bit confused here and there. Is eating 100% of all his meals today. Denies headache or pain. Is cooperative and even stood up out of bed by himself. Tele with NSR, PVCs, normal rates Physical Exam Constitutional: well developed Respiratory: normal respiratory effort, lungs clear to auscultation Cardiovascular: RRR, no murmur, no edema Gastrointestinal (Abdomen): normal bowel sounds, soft, nontender, no hepatosplenomegaly Psychiatric: Orientation: alert, oriented to person, oriented to place and cooperative Results & Data Results & Data Vital Signs (Past 12 Hours) Vital Signs Temp Pulse Pulse Resp BP Pulse Ox O2 Del Method 02/03/23 15:14 36.5 C 84 19 126/54 L 98 Room Air 02/03/23 11:12 36.6 C 78 18 131/71 98 Room Air 02/03/23 08:00 77 02/03/23 08:00 Room Air 02/03/23 07:17 36.5 C 68 19 159/70 H 96 Room Air Laboratory Results CBC, BMP, Ur cx, BCxs reviewed PG Care Time/CCT Total # of Minutes Spent Total Time Spent with Patient: Total time spent is greater than 50% in coordination of care (as documented) at patient's floor/unit and/or counseling patient: Coding Level of Care Code 36117 SUB INP/OBS CARE 2/35MIN Diagnoses Subdural hematoma S06.5XAA Acute metabolic encephalopathy G93.41 Catheter-associated urinary tract infection T83.511A; N39.0 Laceration of head S01.91XA Chronic indwelling Lopez catheter Z97.8 Renal transplant recipient Z94.0 Obstructive sleep apnea G47.33 Hypertension I10 Mild cognitive impairment G31.84 Kidney lesion, [place], right N28.9 MRSA (methicillin resistant staph aureus) culture positive Z22.322
[2023-02-03] MEDS: BRIMONIDINE TARTRATE 0.2% 5ML OPB SCH (20:40)
[2023-02-03] MEDS: ATORVASTATIN 10 MG TAB PO SCH (20:42)
[2023-02-04] MEDS: AMPICILLIN/SULBACTAM SOD 3,000 MG in SODIUM CHLOR 0.9% MINI-B 100 ML IV SCH ×3 (05:18→17:55)
[2023-02-04] MEDS: MUPIROCIN 2% OINT 22 GM TUBE EXT SCH ×2 (09:12→20:09)
[2023-02-04] MEDS: SERTRALINE HCL 50 MG TABLET PO SCH (09:13)
[2023-02-04] MEDS: amLODIPine BESYLATE 5 MG TAB PO SCH (09:13)
[2023-02-04] MEDS: MICONAZOLE NITRATE POWDER 85 GM EXT SCH ×2 (09:13→20:09)
[2023-02-04] MEDS: TACROLIMUS 1 MG CAP PO SCH ×2 (09:13→20:06)
[2023-02-04] MEDS: MYCOPHENOLATE MOFETIL 250 MG CAP PO SCH ×2 (09:13→20:06)
--- NOTE | 2023-02-04 15:52 | Hospitalist Progress Note ---
Date of Service February 04, 2023 Assessment & Plan (1) Subdural hematoma: Plan: Presented with fall and head trauma/lac. He also had a fall a few weeks prior to that as per . Both unwitnessed falls as he lives in [facility] Bilat frontal acute on chronic SDHs seen on CT head. ER provider discussed with neurosurgery and did not recommend transfer - recommended repeat CT head--> performed at 12 hrs and again at 24 hrs--no change Continue to observe w/ neuro checks Encephalopathy now significantly improved Plan to repeat head CT in 1 week-on/around 02/06/23 Needs Neuro follow up-is established with Neuro at [place] holding home ASA but can likely resume if CT 02/06 improving (2) Acute metabolic encephalopathy: Plan: 2/2 infection vs. 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 possibly exchanging Lopez more often? Urology did not give any specific recs thus far but to f/u as outpt-will reach out and see if they would consider exchanging Lopez more often Blood cultures no growth, urine culture mixed tom/contaminated but prior cxs sensitive to Unasyn Repeat UA improved with no further nitrites or bacteria, but still with WBCs, fewer epis, Ur cx no growth -continue Unasyn and convert to po Augmentin on discharge to finish out 10 days -f/u Urology after discharge -discussed with Urology about preventing recurrent infections and they suggested cranberry extract vs adding on methenamine -will add on methenamine 1 gram po bid (4) Laceration of head: Plan: 5 mike placed in ER Plan to remove in 7-10 days around 02/07 -continue bid mupirocin and band aid for wound care (5) Chronic indwelling Lopez catheter: Plan: 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 consult Urology as above (6) Renal transplant recipient: Plan: Continue tacrolimus and mycophenolate Consult nephrology appreciated renal function stable (7) Obstructive sleep apnea: Plan: unable to tolerate CPAP (8) Hypertension: Plan: BPs stable continue amlodipine (9) Mild cognitive impairment: Plan: Underlying dementia with multiple prior admissions with hallucinations while in hospital (10) Kidney lesion, [place], right: Plan: 4.5cm indeterminate lesion seen on Right [place] kidney, renal US recommended by Radiology Renal US here could not visualize it due to multiple cysts addressed with Urology who will follow in the office recommend repeat imaging as per Nephrology choice of modality in a few months--> likely CT discussed with on phone who is aware (11) MRSA (methicillin resistant staph aureus) culture positive: Plan: nasal carrier add mupirocin bid to nares x 1 week, and CHG wipes to body x 3 days Plan VTE Prophyalxis - contraindicated in setting of subdural Diet - regular Disposition -progressing/improving, PT/OT recommend SNF. Awaiting placement at [facility]. Medically stable for discharge but no insurance auth likely till Monday Downgrade from tele to med/surg Will call with update Admission and Anticipated Discharge Date Admission Date: January 30, 2023 Subjective Pt napping in the afternoon when I saw him. He did wake up briefly but would not stay awake to answer questions. RN reports he has been napping throughout the day but is waking up and eating all of his meals Tele with NSR, PACs, rates 70-90s Physical Exam Constitutional: well developed Respiratory: normal respiratory effort, lungs clear to auscultation Cardiovascular: RRR, no murmur, no edema Skin: scalp lac with mike in place, no drainage left knee scabs Results & Data Results & Data Vital Signs (Past 12 Hours) Vital Signs Temp Pulse Pulse Resp BP Pulse Ox O2 Del Method 02/04/23 12:02 36.3 C L 77 18 135/76 98 Room Air 02/04/23 09:37 Room Air 02/04/23 08:01 36.3 C L 77 18 135/76 98 Room Air 02/04/23 07:19 72 02/04/23 03:56 36.5 C 82 17 145/74 H 97 Room Air PG Care Time/CCT Total # of Minutes Spent Total Time Spent with Patient: Total time spent is greater than 50% in coordination of care (as documented) at patient's floor/unit and/or counseling patient: Coding Level of Care Code 72067 SUB INP/OBS CARE 2/35MIN Diagnoses Subdural hematoma S06.5XAA Acute metabolic encephalopathy G93.41 Catheter-associated urinary tract infection T83.511A; N39.0 Laceration of head S01.91XA Chronic indwelling Lopez catheter Z97.8 Renal transplant recipient Z94.0 Obstructive sleep apnea G47.33 Hypertension I10 Mild cognitive impairment G31.84 Kidney lesion, [place], right N28.9 MRSA (methicillin resistant staph aureus) culture positive Z22.322
[2023-02-04] MEDS: METHENAMINE HIPPURATE 1 GM TAB PO SCH (20:04)
[2023-02-04] MEDS: ATORVASTATIN 10 MG TAB PO SCH (20:06)
[2023-02-04] MEDS: BRIMONIDINE TARTRATE 0.2% 5ML OPB SCH (20:08)
[2023-02-05] MEDS: AMPICILLIN/SULBACTAM SOD 3,000 MG in SODIUM CHLOR 0.9% MINI-B 100 ML IV SCH ×3 (00:45→13:17)
[2023-02-05 07:46] LABS: Basophils # (auto) 0.04 K/uL (0.00-0.20); Basophils % (auto) 0.8 %; Hematocrit (blood only) 38.2 % (42.0-52.0); Hemoglobin 13.1 g/dl (14.0-18.0); Immature Granulocytes # (auto) 0.02 K/uL (0.01-0.20); Immature Granulocytes % (auto) 0.4 %; Lymphocytes # (auto) 1.38 K/uL (1.20-3.40); Lymphocytes % (auto) 28.3 %; Mean Corpuscular Hemoglobin 29.6 pg (25.0-34.0); Mean Corpuscular Hgb Conc 34.3 g/dL (32.0-36.0); Mean Corpuscular Volume 86.2 fL (80.0-100.0); Mean Platelet Volume 8.7 fL (9.4-12.4); Monocytes # (auto) 0.39 K/uL (0.11-0.59); Neutrophils # (auto) 2.95 K/uL (1.40-6.50); Neutrophils % (auto) 60.5 %; Platelet Count 117 K/uL (130-400); RDW Coefficient of Variation 12.3 % (11.5-14.5); RDW Standard Deviation 38.9 fL (36.4-46.3); Red Blood Count 4.43 M/uL (4.70-6.10); White Blood Count 4.88 K/ul (4.8-10.8)
[2023-02-05 08:24] LABS: BUN Creatinine Ratio 15.6 (10-20); Calcium 8.8 mg/dl (8.6-10.3); Creatinine Clr Calc Pharmacy 50.5 ml/min; Est GFR (African American) 64.5 ml/min; Est GFR (Non-African American) 55.6 ml/min; Potassium 3.4 mmol/L (3.5-5.1)
[2023-02-05] MEDS: SERTRALINE HCL 50 MG TABLET PO SCH (08:26)
[2023-02-05] MEDS: TACROLIMUS 1 MG CAP PO SCH ×2 (08:27→20:42)
[2023-02-05] MEDS: METHENAMINE HIPPURATE 1 GM TAB PO SCH ×2 (08:27→20:41)
[2023-02-05] MEDS: MYCOPHENOLATE MOFETIL 250 MG CAP PO SCH ×2 (08:28→20:41)
[2023-02-05] MEDS: amLODIPine BESYLATE 5 MG TAB PO SCH (08:28)
[2023-02-05] MEDS: MICONAZOLE NITRATE POWDER 85 GM EXT SCH ×2 (08:28→20:43)
[2023-02-05] MEDS: MUPIROCIN 2% OINT 22 GM TUBE EXT SCH ×2 (08:29→20:40)
--- NOTE | 2023-02-05 15:45 | Hospitalist Progress Note ---
Date of Service February 05, 2023 Assessment & Plan (1) Subdural hematoma: Plan: Presented with fall and head trauma/lac. He also had a fall a few weeks prior to that as per . Both unwitnessed falls as he lives in [facility] Bilat frontal acute on chronic SDHs seen on CT head. ER provider discussed with neurosurgery and did not recommend transfer - recommended repeat CT head--> performed at 12 hrs and again at 24 hrs--no change Encephalopathy possibly from concussion now resolved Plan to repeat head CT in 1 week-on 02/06/23 Needs Neuro follow up-is established with Neuro at [place] holding home ASA but can likely resume if CT 02/06 improving (2) Acute metabolic encephalopathy: Plan: 2/2 infection vs. 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 possibly exchanging Lopez more often? Blood cultures no growth, urine culture mixed tom/contaminated but prior cxs sensitive to Unasyn Repeat UA improved with no further nitrites or bacteria, but still with WBCs, fewer epis, Ur cx no growth -received 7 days of Unasyn and convert to po Augmentin now to finish out 10 days-last day of tx 02/08/23 -f/u Urology after discharge -discussed with Urology about preventing recurrent infections and they suggested cranberry extract vs adding on methenamine - added on methenamine 1 gram po bid (4) Laceration of head: Plan: 5 mike placed in ER Plan to remove in 7-10 days around 02/07 -continue bid mupirocin for wound care, can leave open to air (5) Chronic indwelling Lopez catheter: Plan: 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 consult Urology as above (6) Renal transplant recipient: Plan: Continue tacrolimus and mycophenolate Consult nephrology appreciated renal function stable with hemp fiber taker off 1.22 (7) Obstructive sleep apnea: Plan: unable to tolerate CPAP (8) Hypertension: Plan: BPs stable continue amlodipine (9) Mild cognitive impairment: Plan: Underlying dementia with multiple prior admissions with hallucinations while in hospital (10) Kidney lesion, [place], right: Plan: 4.5cm indeterminate lesion seen on Right [place] kidney, renal US recommended by Radiology Renal US here could not visualize it due to multiple cysts addressed with Urology who will follow in the office recommend repeat imaging as per Nephrology choice of modality in a few months--> likely CT discussed with on phone who is aware (11) MRSA (methicillin resistant staph aureus) culture positive: Plan: nasal carrier add mupirocin bid to nares x 10 days, and CHG wipes to body x 3 days Plan VTE Prophyalxis - contraindicated in setting of subdural Diet - regular Disposition -progressing/improving, PT/OT recommend SNF. Awaiting placement at [facility] SN[facility]. Medically stable for discharge but not likely till Monday Admission and Anticipated Discharge Date Admission Date: January 30, 2023 Subjective Pt awake and alert, talkative, much less confused than previous. Is eating all his meals. Is trying to recall how he fell prior to admission and thinks he may have rolled out of bed. Physical Exam Constitutional: well developed Respiratory: normal respiratory effort, lungs clear to auscultation Cardiovascular: RRR, no murmur, no edema Gastrointestinal (Abdomen): normal bowel sounds, soft, nontender, no hepatosplenomegaly Skin: scalp lac with sutures in place, no erythema or drainage Psychiatric: Orientation: alert, oriented to person, oriented to place and cooperative Results & Data Results & Data Vital Signs (Past 12 Hours) Vital Signs Temp Pulse Resp BP Pulse Ox O2 Del Method 02/05/23 15:10 36.6 C 84 18 150/70 H 97 Room Air 02/05/23 07:36 36.5 C 78 18 138/70 97 Room Air PG Care Time/CCT Total # of Minutes Spent Total Time Spent with Patient: Total time spent is greater than 50% in coordination of care (as documented) at patient's floor/unit and/or counseling patient: Coding Level of Care Code 26983 SUB INP/OBS CARE 2/35MIN Diagnoses Subdural hematoma S06.5XAA Acute metabolic encephalopathy G93.41 Catheter-associated urinary tract infection T83.511A; N39.0 Laceration of head S01.91XA Chronic indwelling Lopez catheter Z97.8 Renal transplant recipient Z94.0 Obstructive sleep apnea G47.33 Hypertension I10 Mild cognitive impairment G31.84 Kidney lesion, [place], right N28.9 MRSA (methicillin resistant staph aureus) culture positive Z22.322
[2023-02-05] MEDS: AMOXICILLIN/CLAVULANATE 875 MG TAB PO SCH (18:45)
[2023-02-05] MEDS: ATORVASTATIN 10 MG TAB PO SCH (20:41)
[2023-02-05] MEDS: BRIMONIDINE TARTRATE 0.2% 5ML OPB SCH (20:42)
[2023-02-06] MEDS: TACROLIMUS 1 MG CAP PO SCH (08:44)
[2023-02-06] MEDS: METHENAMINE HIPPURATE 1 GM TAB PO SCH (08:45)
[2023-02-06] MEDS: SERTRALINE HCL 50 MG TABLET PO SCH (08:45)
[2023-02-06] MEDS: AMOXICILLIN/CLAVULANATE 875 MG TAB PO SCH (08:45)
[2023-02-06] MEDS: MYCOPHENOLATE MOFETIL 250 MG CAP PO SCH (08:45)
[2023-02-06] MEDS: MUPIROCIN 2% OINT 22 GM TUBE EXT SCH (08:45)
[2023-02-06] MEDS: amLODIPine BESYLATE 5 MG TAB PO SCH (08:45)
[2023-02-06] MEDS: MICONAZOLE NITRATE POWDER 85 GM EXT SCH (08:46)
--- NOTE | 2023-02-06 10:00 | CT Scan Report ---
CT head/brain wo con CLINICAL HISTORY: 82 years-old Male with f/u SDH. Follow-up study in a patient with subdural collect ions. TECHNIQUE: Multiple axial CT images of the head were obtained without contrast. A dose lowering tech nique was utilized adhering to the principles of ALARA. CT DOSE: 625.8 mGy.cm COMPARISON: 01/30/2023, 01/31/2023 FINDINGS: Unchanged appearance of the acute on subacute subdural hematomas measuring up to 5-6 mm. No midline s hift. Involutional changes with chronic microvascular ischemic disease. Senescent mineralization of t he lentiform nuclei. Cerebral vascular calcifications. There is no intra-axial mass, hydrocephalus, o r acute territorial infarct. The calvarium is intact. Mastoid air cells are clear. Prior bilateral lens repair. Bilateral optic n erve drusen. Mild mucosal thickening of the ethmoid air cells. IMPRESSION: 1. Unchanged appearance of the acute on subacute bilateral subdural hematomas. 2. No significant mass effect or midline shift. ACT 112: Negative or not required by law. The above report was generated using voice recognition software. It may contain grammatical, syntax o r spelling errors. Electronically signed by: Escobar sAh M.D. 02/06/2023 9:58 AM
[2023-02-06] MEDS ORDERED: ASPIRIN 81 MG ECTAB PO SCH (12:00)
--- NOTE | 2023-02-06 12:10 | Discharge Summary ---
Date of Service February 06, 2023 Admission HPI Per Admitting Provider Kevin Marie is an 82 year old male who presents to the ER following a fall and hitting his head. Unable to get any significant history from the patient. He appears to be confused. He tells me I was not invited to come in today but that I could talk to him. He refused to open his mouth as he told me he just ate pizza. He was unable to follow my finger to test vision. Unable to tell me anything about falling. No answer on his 's phone in EHR. Fall was unwitnessed per ER provider. Per residential at about 5am this morning he was found lying in bed with face covered in blood. Noted to have a laceration on h ead and was therefore sent to the ER. Principal Diagnosis Multiple falls with scalp laceration, acute metabolic encephalopathy, catheter associated urinary tract infection, subacute bilateral frontal subdural hematomas Discharge Exam General-alert and oriented x3, no fevers, no chills HEENT-head atraumatic and normocephalic, pupils equal and reactive to light, extraocular muscles intact Neck-no lymphadenopathy or thyromegaly, trachea midline Chest-clear to auscultation percussion. No rales wheezing or rhonchi Cardiac-regular rate and rhythm, normal S1 and S2 Abdomen-normal bowel sounds, nontender, no hepatosplenomegaly Extremities-no cyanosis, clubbing, or edema Neuro-cranial nerves II through XII intact, motor and sensory function within normal limits, strength symmetrical with generalized weakness, no focal deficits Psych-normal affect, normal mood Discharge Data Allergies Allergy/AdvReac Type Severity Reaction Status Date / Time lisinopril AdvReac Intermediate Cough Verified 01/16/23 11:20 Consultations 01/30/23 20:51 Consult Nephrology Routine 01/31/23 15:55 Consult Urology Routine Ordered Studies 01/30/23 05:51 CT cervical spine wo con Stat CT head/brain wo con Stat 01/30/23 18:00 CT head/brain wo con Stat 01/31/23 11:02 CT head/brain wo con Routine 02/01/23 16:03 US renal/blad retro comp Routine 02/06/23 08:00 CT head/brain wo con Routine Hospital Course (1) Subdural hematoma: Stable on a series of head CT scans this admission. Low-dose aspirin has been restarted. No intervention necessary at this time. (2) Acute metabolic encephalopathy: Now resolved. Supportive care . Treat underlying UTI (3) Catheter-associated urinary tract infection: Urine culture nondiagnostic. Blood culture negative. Unasyn has been switched to Augmentin which she will continue through February 08. Appreciate urology consultation and recommendations. The Lopez catheter was changed this admission. (4) Laceration of head: 5 mike placed in ER. Laceration is healing uneventfully. 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 Nephrology consultation appreciated. Renal function stable (7) Obstructive sleep apnea: Stable. He is unable to tolerate CPAP (8) Hypertension: Stable. Continue amlodipine (9) Mild cognitive impairment: Underlying dementia with multiple prior admissions with hallucinations while in hospital. Supportive care (10) Kidney lesion, [place], right: 4.5cm indeterminate lesion seen on Right [place] kidney. Renal ultrasound completed but nondiagnostic. This will need further outpatient follow-up. 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 Treated with mupirocin bid to nares Plan Discharge today, February 06, to [facility] Total Time Total Time Spent Total Time Spent (In Minutes): 45 minutes Discharge Plan Discharge Items Patient Disposition: Transfer [facility] Reason For Visit: UTI, AMS, SUBCUTANEOUS HEMATOMA Discharge Diagnosis: Multiple falls, scalp laceration, acute metabolic encephalopathy, catheter associated urinary tract infection, subacute bilateral frontal subdural hematomas Activity: Resume your previous activity Non-emergency contact: Primary Care Provider Call non-emergency contact if: you have any medication questions and your symptoms worsen Follow-up/Referrals: Lydia Dobbs MD [Primary Care Provider] - Diet: Regular and Heart Healthy Addtl Attending Provider Instructions: Scalp mike should be removed February 07 Pending Studies at Discharge: No Stand-Alone Forms: My [employer] Text Skilled Items Patient informed of condition?: Yes DNR: Yes Discharge Level of Care: Skilled Communicable Disease: No Discharge Prognosis: Stable Lines: None Urinary Catheter: Yes Medications and DC Order Prescriptions: New methenamine hippurate 1 gram Tablet 1 g PO BID Qty: 0 0RF amoxicillin-pot clavulanate 875-125 mg Tablet 1 tab PO BIDM Qty: 0 0RF aspirin 81 mg Tablet,Delayed Release (Dr/Ec) 81 mg PO QAM Qty: 0 0RF Continued aspirin 81 mg tablet,delayed release (DR/EC) 81 mg PO DAILY Qty: 90 3RF atorvastatin 10 mg tablet 10 mg PO QPM Qty: 90 3RF brimonidine 0.2 % drops 1 drp OPB HS Qty: 15 3RF Rx Instructions: Instill 1 drop into each eye at bedtime cholecalciferol (vitamin D3) 10 mcg (400 unit) capsule 400 unit PO QAM Qty: 90 3RF lidocaine [Salonpas (lidocaine)] 4 % adhesive patch,medicated 1 patch topical DAILY PRN (Reason: pain) Qty: 30 3RF Rx Instructions: Apply to low back as needed for discomfort Metamucil 3.4 gram/5.4 gram powder 1 tbsp PO DAILY Qty: 660 3RF Rx Instructions: mix into at least 8 oz of water or juice before administering potassium chloride 10 mEq tablet extended release 10 meq PO DAILY Qty: 90 3RF omega-3 fatty acids 1,000 mg capsule 1,000 mg PO DAILY Qty: 90 3RF multivitamin with minerals Tablet 1 tab PO HS Qty: 90 3RF sertraline 50 mg tablet 50 mg PO DAILY Qty: 90 3RF tacrolimus 1 mg capsule 1 mg PO BID Qty: 180 3RF amlodipine 5 mg tablet 5 mg PO DAILY Qty: 90 3RF mycophenolate mofetil 250 mg capsule 250 mg PO BID Qty: 60 3RF Rx Instructions: please expedite ciprofloxacin HCl 500 mg tablet 500 mg PO BID Qty: 14 0RF Rx Instructions: Sending additional 7d supply to extend course to total of 14d acetaminophen 325 mg capsule 650 mg PO Q4H MDD 3g PRN (Reason: temp>100.4/pain) miconazole nitrate [Desenex] 2 % Powder 1 applic EXT Q12 Qty: 85 0RF Rx Instructions: apply to rash in groin magnesium oxide 400 mg magnesium tablet 400 mg PO HS calcium carbonate [Tums] 200 mg calcium (500 mg) tablet,chewable 200 mg PO AMHS Discharge Orders: Discharge Order (Routine); Ordered 02/06/23 Ordered By: Kory Peck Admission Data Admit Date/Time: 01/30/23 11:38 Attending Provider: Kory Peck Admit Provider: Merritt Anaya Primary Care Provider: Lydia Dobbs Other Providers: Clemente Pardo [facility]; Angela Carroll; Lion Fields Coding Level of Care Code 05680 INP/OBS DISCH >30 MIN Diagnoses Subdural hematoma S06.5XAA Acute metabolic encephalopathy G93.41 Catheter-associated urinary tract infection T83.511A; N39.0 Laceration of head S01.91XA Chronic indwelling Lopez catheter Z97.8 Renal transplant recipient Z94.0 Obstructive sleep apnea G47.33 Hypertension I10 Mild cognitive impairment G31.84 Kidney lesion, [place], right N28.9 MRSA (methicillin resistant staph aureus) culture positive Z22.322
== END 2023-02-06 14:00 | DRG 82 ==
LOC: ED 05:49 → EDINP 11:38 → SUATTDRO 11:38 → 4W 15:28 → 3W 02-04 18:34

== ENCOUNTER 2023-05-21 18:09 | Inpatient (IN) ==
--- OUTSIDE RECORDS SUMMARY | 2023-05-21 18:16 | External Medical Summary | Continuity of Care Document ---
Author Name Unknown Organization [facility] Address [address] [place] [id number] Encounter [facility] [id number] Date(s): 05/05/23 - 05/12/[address] [id number] [phone] Encounter Diagnosis Delirium superimposed on dementia(Discharge Diagnosis) - 05/05/23 Acute on chronic intracranial subdural hematoma.(Discharge Diagnosis) - 05/12/23 Immunocompromised(Discharge Diagnosis) - 05/05/23 Polypharmacy(Discharge Diagnosis) - 05/05/23 Discharge Disposition: [facility] Attending Physician: MD Finesse, Mati Admitting Physician: MD Hailee, Thornton Referring Physician: DO Sauceda Jeffrey R Allergies, Adverse Reactions, Alerts No Known Allergies Functional Status 05/12/23 Neurological Symptoms Confusion/Disorien tation ADLs Moderate assistance Facial Symmetry Symmetric Gait Unable to assess Swallowing Difficulty None Level of Consciousness Neuro Alert Hallucinations Present None History of Fall in Last 3 Months Escobar Y es Presence of Secondary Diagnosis Escobar Ye s Use of Ambulatory Aid Escobar None/bedrest /nurse assist IV/Heparin Lock Fall Risk Escobar Yes Gait/Transferring Fall Risk Escobar Weak Mental Status Fall Risk Escobar Forgets li mitations Escobar Fall Risk Score 85 Escobar Fall Risk High risk Speech Pattern Clear Medications amLODIPine 5 mg oral tablet Start: 05/05/23 5:24:00 EST, 1 tab, PO, Daily Start Date: 05/05/23 Status: Ordered brimonidine 0.2% ophthalmic solution Start: 05/05/23 5:25:00 EST, 1 drop, both eyes, qhs Start Date: 05/05/23 Status: Ordered mycophenolate mofetil 250 mg oral capsule Start: 03/19/15 9:35:00, 1 cap, PO, bid, Refills: 2, Note to Pharmacy: [id number] Start Date: 03/19/15 Stop Date: 06/17/15 Status: Ordered sertraline 50 mg oral tablet Start: 05/05/23 5:24:00 EST, 1.5 tab, PO, Daily Start Date: 05/05/23 Status: Ordered tacrolimus (generic) 1 mg oral capsule Start: 04/30/15 16:22:00, See Instructions, Disp# 270 cap, Refills: 3, 2 capsules in the morning and 1 capsule in the evening, Pharmacy: [id number] Start Date: 04/30/15 Status: Ordered Mental Status 05/05/23 Primary Language Greenlandic Problem List Condition Confirmation Course Effective Dates Status Health St atus Informant Dementia Confirmed Active Subdural bleeding Confirmed Active Kidney transplanted Confirmed Active Diagnosis Diagnosis Type Effective Dates Health Status Clinical Service Informant Immunocompromised Discharge Diagnosis 05/05/23 Non-Specified Delirium 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 Discharge Diagnosis 05/12/23 Results Laboratory List Name Date Complete Blood Count w Differential (CBC w Platelets and Diff) 05/12/23 Comprehensive Metabolic Panel (CMP) 05/11 Magnesium Level (Mg Level) 05/12/23 Phosphorus Level (PO4 Level) 05/12/23 Complete Blood Count w Differential (CBC w Platelets and Diff) 05/11/23 Comprehensive Metabolic Panel (CMP) 05/10 Magnesium Level (Mg Level) 05/11/23 Phosphorus Level (PO4 Level) 05/11/23 Magnesium Level 05/10/23 Complete Blood Count w Differential (CBC w Platelets and Diff) 05/10/23 Comprehensive Metabolic Panel (CMP) 05/09 Phosphorus Level 05/10/23 MRSA Surveillance (Nasal Swab) 05/09/23 Prothrombin Time w/ INR (PT/INR) 05/09/23 Tacrolimus Level 05/07/23 Tacrolimus Level 05/05/23 Added on Lab order 05/05/23 Urine Analysis w/ Reflexed Microscopic. (Urinalysis w/ Reflexed Microscopic.) 05/05/23 Prothrombin Time w/ INR (PT/INR) 05/05/23 Tacrolimus Level (FK506) 05/05/23 Most recent to oldest [Reference Range]: 1 2 3 eGFR CKD-EPI [>60 mL/min/1.73 m2] 65 mL/min/1.73 m2 (05/12/23 6:49 AM) 75 mL/min/1.73 m2 (05/11/23 7:07 AM) 66 mL/min/1.73 m2 (05/10/23 7:54 AM) Request of Physician Tacrolimus (05/05/23 4:05 AM) Action Taken YES (05/05/23 4:05 AM) Platelet Morphology NORMAL (05/11/23 7:07 AM) Estimated CrCl 53.51 mL/min (05/12/23 7:31 AM) 60.40 mL/min (05/11/23 8:36 AM) 53.98 mL/min (05/10/23 8:46 AM) MPV [9.0-12.2 fL] 8.3 fL *LOW* (05/12/23 6:49 AM) 8.6 fL *LOW* (05/11/23 7:07 AM) 8.4 fL *LOW* (05/10/23 7:54 AM) Immature Gran% 0.2 % (05/12/23 6:49 AM) 0.0 % (05/11/23 7:07 AM) 0.4 % (05/10/23 7:54 AM) Neut% 66.1 % (05/12/23 6:49 AM) 78.2 % (05/11/23 7:07 AM) 70.5 % (05/10/23 7:54 AM) Lymph% 24.8 % (05/12/23 6:49 AM) 16.4 % (05/11/23 7:07 AM) 20.6 % (05/10/23 7:54 AM) Burke% 7.3 % (05/12/23 6:49 AM) 3.6 % (05/11/23 7:07 AM) 6.7 % (05/10/23 7:54 AM) Baso% 0.4 % (05/12/23 6:49 AM) 0.9 % (05/11/23 7:07 AM) 0.4 % (05/10/23 7:54 AM) Eos% 1.2 % (05/12/23 6:49 AM) 0.9 % (05/11/23 7:07 AM) 1.4 % (05/10/23 7:54 AM) Immat Gran, Abs [0-0.4 K/uL] 0.01 K/uL (05/12/23 6:49 AM) 0.02 K/uL (05/10/23 7:54 AM) Immat Gran, Abs [0.0-0.4 K/uL] 0.00 K/uL (05/11/23 7:07 AM) Neut, Abs [2.0-7.7 K/uL] 3.44 K/uL (05/12/23 6:49 AM) 6.21 K/uL (05/11/23 7:07 AM) 3.56 K/uL (05/10/23 7:54 AM) Lymph, Abs [1.0-3.4 K/uL] 1.29 K/uL (05/12/23 6:49 AM) 1.30 K/uL (05/11/23 7:07 AM) 1.04 K/uL (05/10/23 7:54 AM) Burke, Abs [0-1.0 K/uL] 0.38 K/uL (05/12/23 6:49 AM) 0.29 K/uL (05/11/23 7:07 AM) 0.34 K/uL (05/10/23 7:54 AM) Baso, Abs [0-0.1 K/uL] 0.02 K/uL (05/12/23 6:49 AM) 0.07 K/uL (05/11/23 7:07 AM) 0.02 K/uL (05/10/23 7:54 AM) Eos, Abs [0-0.5 K/uL] 0.06 K/uL (05/12/23 6:49 AM) 0.07 K/uL (05/11/23 7:07 AM) 0.07 K/uL (05/10/23 7:54 AM) Type of Diff: AUTO (05/12/23 6:49 AM) MANUAL (05/11/23 7:07 AM) AUTO (05/10/23 7:54 AM) RBC Morphology NORMAL (05/11/23 7:07 AM) RDW [11.5-14.2 %] 12.9 % (05/12/23 6:49 AM) 12.9 % (05/11/23 7:07 AM) 13.1 % (05/10/23 7:54 AM) Squamous Epithelial Cells (u) NONE (05/05/23 4:04 AM) Mucous (u) FEW (05/05/23 4:04 AM) MRSA Surveillance, on Admission [MSND] MRSA NOT detected (05/09/23 11:58 AM) Anion Gap [5-14 mmol/L] 10 mmol/L (05/12/23 6:49 AM) 14 mmol/L (05/11/23 7:07 AM) 12 mmol/L (05/10/23 7:54 AM) Alb [3.5-5.2 g/dL] 3.5 g/dL (05/12/23 6:49 AM) 3.4 g/dL *LOW* (05/11/23 7:07 AM) 3.5 g/dL (05/10/23 7:54 AM) Alk Phos [40-130 unit/L] 69 unit/L 1 (05/12/23 6:49 AM) 63 unit/L 2 (05/11/23 7:07 AM) 59 unit/L 3 (05/10/23 7:54 AM) ALT [0-41 unit/L] 12 unit/L (05/12/23 6:49 AM) 11 unit/L (05/11/23 7:07 AM) 9 unit/L (05/10/23 7:54 AM) AST [0-40 unit/L] 17 unit/L (05/12/23 6:49 AM) 22 unit/L 4 (05/11/23 7:07 AM) 15 unit/L (05/10/23 7:54 AM) Bact (u) [NONE-NONE] FEW *Abnormal* (05/05/23 4:04 AM) Bili (u) [NEG] NEGATIVE (05/05/23 4:04 AM) BUN [6-23 mg/dL] 14 mg/dL (05/12/23 6:49 AM) 15 mg/dL (05/11/23 7:07 AM) 16 mg/dL (05/10/23 7:54 AM) Ca [8.4-10.2 mg/dL] 8.9 mg/dL (05/12/23 6:49 AM) 8.9 mg/dL (05/11/23 7:07 AM) 8.5 mg/dL (05/10/23 7:54 AM) Cl- [98-107 mmol/L] 107 mmol/L (05/12/23 6:49 AM) 106 mmol/L (05/11/23 7:07 AM) 105 mmol/L (05/10/23 7:54 AM) HCO3 [22-29 mmol/L] 23 mmol/L (05/12/23 6:49 AM) 19 mmol/L *LOW* (05/11/23 7:07 AM) 21 mmol/L *LOW* (05/10/23 7:54 AM) Cret [0.70-1.30 mg/dL] 1.14 mg/dL (05/12/23 6:49 AM) 1.01 mg/dL (05/11/23 7:07 AM) 1.13 mg/dL (05/10/23 7:54 AM) FK506 6.9 ng/mL 5 (05/07/23 6:18 AM) 2.1 ng/mL 6 (05/05/23 8:02 AM) 2.9 ng/mL 7 (05/05/23 4:04 AM) Glu [74-109 mg/dL] 90 mg/dL 8 (05/12/23 6:49 AM) 82 mg/dL 9 (05/11/23 7:07 AM) 89 mg/dL 10 (05/10/23 7:54 AM) Hct [39-48 %] 36.2 % *LOW* (05/12/23 6:49 AM) 38.3 % *LOW* (05/11/23 7:07 AM) 34.4 % *LOW* (05/10/23 7:54 AM) Hgb [13.0-17.0 g/dL] 12.3 g/dL *LOW* (05/12/23 6:49 AM) 12.9 g/dL *LOW* (05/11/23 7:07 AM) 11.7 g/dL *LOW* (05/10/23 7:54 AM) INR [0.9-1.1] 1.1 11 (05/09/23 8:54 AM) 1.3 12 *HI* (05/05/23 4:04 AM) K [3.5-5.1 mmol/L] 4.5 mmol/L (05/12/23 6:49 AM) 5.0 mmol/L 13 (05/11/23 7:07 AM) 4.4 mmol/L (05/10/23 7:54 AM) Ketones [NEG mg/dL] NEGATIVE mg/dL (05/05/23 4:04 AM) Leuk Est [NEG] TRACE *Abnormal* (05/05/23 4:04 AM) MCH [28-33 pg] 30.6 pg (05/12/23 6:49 AM) 29.9 pg (05/11/23 7:07 AM) 30.2 pg (05/10/23 7:54 AM) MCHC [32-36 g/dL] 34.0 g/dL (05/12/23 6:49 AM) 33.7 g/dL (05/11/23 7:07 AM) 34.0 g/dL (05/10/23 7:54 AM) MCV [81-96 fL] 90.0 fL (05/12/23 6:49 AM) 88.7 fL (05/11/23 7:07 AM) 88.9 fL (05/10/23 7:54 AM) Mg [1.6-2.6 mg/dL] 1.8 mg/dL (05/12/23 6:49 AM) 1.8 mg/dL (05/11/23 7:07 AM) 1.8 mg/dL (05/10/23 7:54 AM) Na [136-145 mmol/L] 140 mmol/L (05/12/23 6:49 AM) 139 mmol/L (05/11/23 7:07 AM) 138 mmol/L (05/10/23 7:54 AM) Nitrite (u) [NEG] NEGATIVE (05/05/23 4:04 AM) PO4 [2.5-4.5 mg/dL] 2.7 mg/dL (05/12/23 6:49 AM) 3.1 mg/dL (05/11/23 7:07 AM) 3.4 mg/dL (05/10/23 7:54 AM) Plts [150-350 K/uL] 148 K/uL *LOW* (05/12/23 6:49 AM) 140 K/uL 14 *LOW* (05/11/23 7:07 AM) 132 K/uL *LOW* (05/10/23 7:54 AM) PT [12.0-14.2 seconds] 14.4 seconds *HI* (05/09/23 8:54 AM) 15.9 seconds *HI* (05/05/23 4:04 AM) RBC [4.40-5.60 M/uL] 4.02 M/uL *LOW* (05/12/23 6:49 AM) 4.32 M/uL *LOW* (05/11/23 7:07 AM) 3.87 M/uL *LOW* (05/10/23 7:54 AM) T Bili [0.0-1.2 mg/dL] 0.7 mg/dL (05/12/23 6:49 AM) 0.8 mg/dL (05/11/23 7:07 AM) 0.7 mg/dL (05/10/23 7:54 AM) Prot [6.4-8.3 g/dL] 5.9 g/dL *LOW* (05/12/23 6:49 AM) 5.8 g/dL *LOW* (05/11/23 7:07 AM) 5.8 g/dL *LOW* (05/10/23 7:54 AM) Appear (u) CLEAR (05/05/23 4:04 AM) Color (u) YELLOW (05/05/23 4:04 AM) Glu (u) [NEG mg/dL] NEGATIVE mg/dL (05/05/23 4:04 AM) Hgb (u) [NEG] NEGATIVE (05/05/23 4:04 AM) pH (u) [5.0-8.0 unit] 7.0 unit (05/05/23 4:04 AM) Prot (u) [NEG mg/dL] 30 mg/dL *Abnormal* (05/05/23 4:04 AM) RBC (u) [0-4 /HPF] 0-4 /HPF (05/05/23 4:04 AM) Urobili [0.1-1.0 EU/dL] 0.1-1.0 EU/dL (05/05/23 4:04 AM) SG [1.005-1.030] 1.023 (05/05/23 4:04 AM) WBC (u) [0-4 /HPF] 10-19 /HPF (05/05/23 4:04 AM) WBC [4.0-10.4 K/uL] 5.20 K/uL (05/12/23 6:49 AM) 7.94 K/uL (05/11/23 7:07 AM) 5.05 K/uL (05/10/23 7:54 AM) 1Result Comment: Low levels of ALKP may indicate a deficiency in zinc, magnesium, or malnutritionbutcan also be an indicator of a rare genetic disease hypophosphatasia (HPP). 2Result Comment: Low levels of ALKP may indicate a deficiency in zinc, magnesium, or malnutritionbutcan also be an indicator of a rare genetic disease hypophosphatasia (HPP). 3Result Comment: Low levels of ALKP may indicate a deficiency in zinc, magnesium, or malnutritionbutcan also be an indicator of a rare genetic disease hypophosphatasia (HPP). 4Result Comment: HEMOLYZED SPECIMEN 5Result Comment: No guideline supported therapeutic range exists for tacrolimus in whole blood. The complexity of the clinical state, individual differences in sensitivity to immunosuppressive and nephrotoxic effects of tacrolimus, co-administration of other immunosuppressants, type of transplant, time post-transplant and a number of other factors contribute to different requirements for optimal blood levels of tacrolimus. Therefore, individual tacrolimus values cannot be used as the sole indicator for making changes in treatment regimen and each patient should be thoroughly evaluated clinically before changes in treatment regimens are made. Each user must establish his or her own ranges based on clinical experience. The following range is a suggested guideline: 5.0 - 20.0 ng/mL. Testing was performed by Immunoassay ([employer]). 6Result Comment: No guideline supported therapeutic range exists for tacrolimus in whole blood. The complexity of the clinical state, individual differences in sensitivity to immunosuppressive and nephrotoxic effects of tacrolimus, co-administration of other immunosuppressants, type of transplant, time post-transplant and a number of other factors contribute to different requirements for optimal blood levels of tacrolimus. Therefore, individual tacrolimus values cannot be used as the sole indicator for making changes in treatment regimen and each patient should be thoroughly evaluated clinically before changes in treatment regimens are made. Each user must establish his or her own ranges based on clinical experience. The following range is a suggested guideline: 5.0 - 20.0 ng/mL. Testing was performed by Immunoassay ([facility]). 7Result Comment: No guideline supported therapeutic range exists for tacrolimus in whole blood. The complexity of the clinical state, individual differences in sensitivity to immunosuppressive and nephrotoxic effects of tacrolimus, co-administration of other immunosuppressants, type of transplant, time post-transplant and a number of other factors contribute to different requirements for optimal blood levels of tacrolimus. Therefore, individual tacrolimus values cannot be used as the sole indicator for making changes in treatment regimen and each patient should be thoroughly evaluated clinically before changes in treatment regimens are made. Each user must establish his or her own ranges based on clinical experience. The following range is a suggested guideline: 5.0 - 20.0 ng/mL. Testing was performed by Immunoassay ([facility]). 8Result Comment: ADA recommendation for FASTING Serum/Plasma Glucose: Normal: 70-100 mg/dL Prediabetes: 100-125 mg/dL Diabetes: 126 mg/dL or higher 9Result Comment: ADA recommendation for FASTING Serum/Plasma Glucose: Normal: 70-100 mg/dL Prediabetes: 100-125 mg/dL Diabetes: 126 mg/dL or higher 10Result Comment: ADA recommendation for FASTING Serum/Plasma Glucose: Normal: 70-100 mg/dL Prediabetes: 100-125 mg/dL Diabetes: 126 mg/dL or higher 11Result Comment: Suggested therapeutic range for low-intensity Coumadin therapy for venous thromboembolism is INR 2.0-3.0 (ex: atrial fibrillation, history of TIA/stroke). For high risk patients, the suggested therapeutic range is INR 2.5-3.5 (ex: mechanical prosthetic valves). 12Result Comment: Suggested therapeutic range for low-intensity Coumadin therapy for venous thromboembolism is INR 2.0-3.0 (ex: atrial fibrillation, history of TIA/stroke). For high risk patients, the suggested therapeutic range is INR 2.5-3.5 (ex: mechanical prosthetic valves). 13Result Comment: HEMOLYZED SPECIMEN 14Result Comment: CHECKED Orders for Microbiology Reports Name Date Respiratory Pathogen Panel, by PCR (RVP) 05/05/23 Blood Culture (Aerobic AND Anaerobic) 05/05/23 Blood Culture (Aerobic AND Anaerobic) 05/05/23 Urine Culture 05/05/23 Microbiology Reports TEST:Respiratory Virus Panel, by PCR STATUS:Auth (Verified) BODY SITE: SOURCE:Nasal/Pharyngeal COLLECTED DATE/TIME:05/05/23 6:28 PM Multiplex PCR Negative for: Severe Acute Respiratory Syndrome Coronavirus (SARS-CoV-2/COVID-19), Influenza A and B, Adenovirus, Bordetella pertussis, Bordetella parapertussis, Chlamydophila pneumoniae, Coronavirus (229E,HKU1,NL63,OC43), Human metapneumovirus, Mycoplasma pneumoniae, Parainfluenza Types 1,2,3, and 4, Respiratory syncytial virus, and Rhinovirus/Enterovirus. TEST:Blood.Cx STATUS:Auth (Verified) BODY SITE: SOURCE:Blood COLLECTED DATE/TIME:05/05/23 5:53 AM Culture NO GROWTH IN 5 DAYS TEST:Blood.Cx STATUS:Auth (Verified) BODY SITE: SOURCE:Blood COLLECTED DATE/TIME:05/05/23 5:52 AM Status FINAL 05/10/2023 TEST:Urine.Cx STATUS:Auth (Verified) BODY SITE: SOURCE:Urine COLLECTED DATE/TIME:05/05/23 4:04 AM Status FINAL 05/06/2023 Radiology Reports * Exam Date Time Procedure Performing Provider Status 05/10/23 10:[address] Brain/Head w/o Contrast Lucía Muñoz; Final Notes: (CT Brain/Head w/o Contrast) Reason For Exam: f/u cSDH CT Brain/Head w/o Contrast EXAMINATION: CT OF THE HEAD WITHOUT CONTRAST CLINICAL HISTORY: Traumatic subdural hemorrhage with loss of conscio; COMPARISON: Pri[facility] including a CT head 05/04/2023. TECHNIQUE: Routine tomographic images of the brain are obtained from the skull base to the vertex without the use of intravenous contrast, coronal and sagittal reconstructions. DOSE: Total Reported Dose Length Product (DLP) = 1090 mGycm FINDINGS: Cerebral parenchyma: Status post right middle artery embolization with hyperdense embolic material noted over the right temporal convexity. * Decrease in size of right frontoparietal and temporal mixed density subdural collection measuringapproximately 2 to 3 mm in maximum thickness in the right frontal convexity. * Calcifications of basal ganglia centered in the globus pallidus bilaterally again noted. Extra-axial spaces: See above Ventricles: No hydrocephalus. Mass effect: No midline shift. Sella:Pituitary gland is grossly unremarkable. Basal cisterns: Patent Posterior fossa: Brainstem and cerebellum are grossly unremarkable. Calvarium: Unremarkable without fracture or lytic lesions. Visualized paranasal sinuses/mastoid: Clear Visualized orbits and skull base: Globes and bony orbits are unremarkable. Intact skull base soft tissue structures. IMPRESSION: 1. Right-sided mixed density subdural collection mildly decreased since 05/04/2023. 2. Status post middle meningeal artery embolization. 3. No acute intracranial hemorrhage. Workstation ID: [id number] Final Dictated by:MD Kerr T Thomas Dictated DT/TM:05/10/2023 3:16 Signed by:MD Kerr T Thomas Signed (Electronic Signature):05/10/2023 3:15 p * Exam Date Time Procedure Performing Provider Status 05/09/23 4:46 PM NVI Embolization Intracranial Radha Casas M; Modified Notes: (NVI Embolization Intracranial) Reason For Exam: SDH Addendum Report Additional procedures included: Left common carotid artery cerebral angiogram Left external carotid artery cerebral angiogram Final Signed by:MD Barrera Ephraim W Signed (Electronic Signature):05/10/2023 5:27 p Report NVI Embolization Intracranial Name: TRESSA RODRIGUEZ Patient Number: [id number] : 1940 Date of Service: 05/09/23 SURGEON: Alejandro Barrera MD, FAANS, FACS FITTER'S ASSISTANT(s): Rica Simeon MD PREOPERATIVE DIAGNOSIS: Right chronic subdural hematoma POSTOPERATIVE DIAGNOSIS: Same OPERATIONS PERFORMED: Ultrasound-guided access of right femoral artery with vessel patency and successful access documented in the PACS system Right common carotid artery angiogram Rightexternal carotid artery angiogram Superselective right middle meningeal artery angiogram Embolization of right middle meningeal artery Follow-up angiogram for comparison with preembolization images Right femoral artery angiogram Supervision and interpretation ANESTHESIA: Monitored anesthesia care ESTIMATED BLOOD LOSS: 10 mL CONTRAST: Approximately 40 mL Omnipaque 300 SPECIMENS: None IMPLANTS:Angio-seal closure device in right femoral artery FLUOROSCOPY TIME: Approximately 10 minutes INDICATIONS:The patient is an 82-year-old gentleman who presented to the hospital with a urinary tract infection. He was found to have a 1 cm chronic right subdural hematoma. There was also a much smaller collection on the left. We discussed the various options including medical treatments, bur hole drainage, and middle meningeal artery embolization. He and his family opted for MMA embolization. The patientprovided their informed, written consent for the operation. The risk of stroke was considered higher than normaldue tocentral nervous system catheterization and the underlying condition. This was specifically discussed with the patient.The detailed consent discussion is documented in the consent form.Prior to the operation,the neurological exam was significant for intermittent confusion. OPERATION: The patient was brought to the neuroendovascular suite and identified by the various teams. The patient was positioned supine on the angiographic table. Appropriate lines and monitors wereplaced. Anesthesia was administered. The operative areas were prepped and draped in the usual sterile fashion. A team timeout was performed. The femoral head was localized with fluoroscopy. After infiltration with local anesthetic, a small transverse incision was made overlying the femoral artery pulse. The vessel was accessed with a 21-gauge microneedle, and a microwire was placed. The ultrasound was used. Vessel patency and successfulaccess are documented in the PACS system. The vessel was dilated. A sheath was placed using the Seldinger technique. It was flushed and connected to a continuous heparinized flush system. The sheath was secured to the patient. A 5-Scottish diagnostic catheter was connected to continuous heparinized flush system. This was advanced through the sheath over a glidewire. The catheter was navigated over the wire into the origin of the right common carotid artery. A selectiveright common carotid artery angiogram was performed. No dangerous EC IC anastomoses were revealed. The middle meningeal artery had an extracranial origin. The diagnostic catheter was navigated over the wire into the origin of theright external carotid artery. A selective right external carotid artery cerebral angiogram was performed. The images were reviewed. The MMA appeared suitable for embolization. A 0.017 inch microcatheter was connected to continuous heparinized flush system. This was navigated over a 0.014 inch microwire. Using image overlay guidance, the microcatheter was navigated intothe right MMA. We navigated past the foramen spinosum to the bifurcation of the anterior and posterior branches. We performed a superselectiveright middle meningeal artery angiogram. This showed that we were in good position for embolization. We prepared the vessel with 1.0 mg verapamil. After preparing the microcatheter with D5W flush, we injected a 2:1 mixture of nBCA during a run. We performed follow-up angiograms. Therewas no filling of the left middle meningeal artery. No thromboembolic complications were noted. We turned our attention to the left. We performed a left cervical common carotid artery angiogram. There was no significant stenosis. We performed a left common carotid artery angiogram with cerebralviews. There were no dangerous anastomoses. We then catheterized the left external carotid artery and performed a left external carotid artery angiogram. There was an MMA that was suitable for embolization. We did attempt to access this using microsurgical technique. There was severe vessel tortuosity that prevented successful access. We determined that the risks of additional manipulations outweighed the benefits. The catheter was withdrawn to the level of the sheath, and a limited femoral artery angiogram was performed for purposes of closure device placement. The images were reviewed, and there was no significant atherosclerotic disease or narrowing of this vessel. The vessel was closed with an Angio-seal closure device. No bleeding or hematoma was noted at the operative site. The patient was stable at the end of the operation. There were no complications. I was present and oversaw the entire operation from vessel puncture through closure. GUTIERREZ FINDINGS: Successful embolization ofright middle meningeal artery. Final Signed by:MD Barrera Ephraim W Signed (Electronic Signature):05/10/2023 5:24 p * Exam Date Time Procedure Performing Provider Status 05/05/23 10:52 AM XR Spine Lumbosacral 2 or 3 Views Moustapha Levin; Final Notes: (XR Spine Lumbosacral 2 or 3 Views) Reason For Exam: Sincere Harden with Medicine. I have consult. ED 16 Tress[address] Rodriguez. Transferred with acute on chronic SDH and has UTI. I'm admitting him to medicine. He has Superior endplate compression fracture of L1 and L2. XR Spine Lumbosacral 2 or 3 Views EXAMINATION: XR Spine Lumbosacral 2 or 3 Views CLINICAL HISTORY: Sincere Harden with Medicine. I have consult. ED 16 Tressa Rodriguez. Transferred with acute on chronic SDH and has UTI. I'm admitting him to medicine. He has Superior endplate compression fracture of L1 and L2. COMPARISON: CT abdomen and pelvis from outside institution 05/04/2023. FINDINGS: Supine AP and lateral views of the lumbar spine. Again seen are superior endplate fractures at L1 and L2. L3, L4 and L5 are normal in height. Normalalignment. Degenerative endplate osteophytes at each level. Narrowing of the L4-5 disc space. Degenerative changes of facet joints. SI joints and included portions both hips and pubic symphysis are normal. Calcification of the abdominal aorta. IMPRESSION: Superior endplate fractures of L1 and L2, similar to that seen on CT scan from 05/04/2023. Workstation ID: [id number] Final Dictated by:MD Meza Pamela L Dictated DT/TM:05/05/2023 12:07 Signed by:MD Meza Pamela L Signed (Electronic Signature):05/05/2023 12:06 * Exam Date Time Procedure Performing Provider Status 05/05/23 5:38 AM XR Chest 1 View Sonny, Anna Best; Jaz forte Notes: (XR Chest 1 View) Reason For Exam: freq falls, from nursing facility, eval infection XR Chest 1 View EXAMINATION: XR Chest 1 View CLINICAL HISTORY: freq falls, from nursing facility, eval infection COMPARISON: Chest radiograph 03/21/2005 FINDINGS: Portable upright AP view of the chest. Normal cardiomediastinal silhouette. Normal central pulmonary vasculature. Hypoventilatory changes. No focal parenchymal opacity. No large pleural effusion. No pneumothorax. No acute osseous abnormality. Tortuous thoracic aorta. IMPRESSION: 1. No consolidative pneumonia. 2. Hypoventilatory changes. Dr. Juan Alberto Donnelly is the dictating resident. Finalized reports status indicates that the attendinghas reviewed the images and report, and agrees with the interpretation. Preliminary report status should be regarded as NOT interpreted by the attending radiologist. Workstation ID: [id number] Final Dictated by:MD Donnelly Anthony Robert Dictated DT/TM:05/05/2023 7:29 Resident:MD Donnelly Anthony Robert Signed by:DO Fernandez Christian Signed (Electronic Signature):05/05/2023 7:28 a * Exam Date Time Procedure Performing Provider Status 05/05/23 4:[address] Head Consult Emperatriz Arias Notes: (OO CT Head Consult) Reason For Exam: SDH OO CT Head Consult EXAMINATION: OO CT Head Consult from [facility] 05/04/2023 CLINICAL HISTORY: SDH COMPARISON: Head CT from 01/30/2023 TECHNIQUE: OO CT Head Consult. DOSE: Total Reported Dose Length Product (DLP) = 1641 FINDINGS: Cerebral parenchyma: No acute intraparenchymal hemorrhage. No acute territorial infarct. French-whitedifferentiation is maintained. Chronic mineralization of the basal ganglia. Extra-axial spaces: Right frontal convexity heterogeneous subdural hematoma measuring up to 8 mm compared with 6 mm on 01/30/2023. No significant mass effect. Ventricles: Unremarkable. Mass effect: None. Posterior Fossa: Normal position of the cerebellar tonsils. Calvarium: Unremarkable Visualized paranasal sinuses/mastoids: Mild opacification of ethmoid air cells. Otherwise paranasalsinuses are clear. IMPRESSION: 1. The subdural hematoma along the right frontal convexity measuring 8 mm, just slightly increase compared to prior head CT from 01/30/2023, previously measuring 6 mm. No significant mass effect. 2. No new acute intracranial hemorrhage. Workstation ID: [id number] Final Dictated by:MD Barrera Einat Dictated DT/TM:05/05/2023 11:38 Signed by:MD Barrera Einat Signed (Electronic Signature):05/05/2023 11:37 * Exam Date Time Procedure Performing Provider Status 05/05/23 4:[address] Abdomen and Pelvis Consult Hostet Sammie vega; Jewell Notes: (OO CT Abdomen and Pelvis Consult) Reason For Exam: UTI OO CT Abdomen and Pelvis Consult ADDENDUM BEGINS Additionally, as noted in the body report thickened small bowel loops in the mid abdomen, nonspecific may be a enteritis. Workstation ID: [id number] ADDENDUM ENDS Final Dictated by:MD Connors Kathryn L Dictated DT/TM:05/05/2023 1:04 Signed by:MD Connors Kathryn L Signed (Electronic Signature):05/05/2023 1:[address] Abdomen and Pelvis Consult EXAMINATION: CT abdomen pelvis performed at [facility] CLINICAL HISTORY: UTI COMPARISON: 05/15/2009 MRI TECHNIQUE: CT images with IV contrast were acquired at an outside hospital dated 05/04/2023 and submitted for secondary interpretation at [facility]. No additional scanning was performed. FINDINGS: Lower chest: Mild atelectasis at the lung bases. Coronary artery disease. Abdomen Liver, Gallbladder \\T\\ bile ducts: Innumerable hypodensities throughout the liver. Patent portal vein. Decompressed gallbladder. Central biliary dilation versus periportal cysts. Number of cystic lesions has increased compared to 2010 MRI. Pancreas: Normal Spleen: Normal Adrenals: Normal Kidneys, collecting system and ureters: Enlarged, polycystic kidneys of varying density and with scattered calcifications. Left upper quadrant lesion measuring 9.2 cm is presumed related to the kidney, although not clear on this image. Retroperitoneum, lymph nodes, and vessels: Severe atherosclerosis of the aorta and involving the branching vessels. Bowel \\T\\ Mesentery: Thickened loops of small bowel in the midabdomen. There may be associated edema in the mesentery, but limited by paucity of intra-abdominal fat. Nonobstructive bowel. Pelvis Bladder: Small amount of gas in the bladder with small amount of urine and Lopez catheter present. Reproductive organs: No gross abnormality for technique Extraperitoneal, lymph nodes, vessels: Atherosclerosis. Right lower quadrant renal transplant. There is gas in the collecting system. No hydronephrosis. Normal enhancement. Osseous and body wall: Limited assessment of the spine without dedicated coronal or sagittal images. Degenerative changes in the spine are present. Nonacute left-sided rib fractures. IMPRESSION: 1. Of note, no sagittal or coronal reconstructions. 2. There is gas in the transplanted kidney collecting system, which may be iatrogenic (Lopez catheter present in the bladder with small amount of gas) or due to infection. 3. Polycystic kidneys. The large left upper quadrant lesion is presumed related to the kidney (complex cyst), although not definitive based on the limited available images and not otherwise characterized. 4. Multiple hypodensities in the liver and along the portal vein. These have progressed from 2010 MRI. These are not well characterized without contrast, although presumably represent cysts. 5. Hypodensities along the portal vein are likely peribiliary cysts, less likely dilated bile ducts. Workstation ID: [id number] Final Dictated by:MD Connors Kathryn L Dictated DT/TM:05/05/2023 12:28 Signed by:MD Connors Kathryn L Signed (Electronic Signature):05/05/2023 12:27 Vital Signs Most recent to oldest [Reference Range]: 1 2 3 Height 182.88 cm (05/05/23 3:47 AM) Patient Weight 72 kg (05/10/23 4:00 AM) 73.2 kg (05/05/23 3:47 AM) Body Mass Index 21.89 kg/m2 (05/05/23 3:47 AM) Temperature [36.5-37.9 DegC] 37.1 DegC (05/12/23 5:45 AM) 37.3 DegC (05/11/23 8:33 PM) 36.9 DegC (05/11/23 11:59 AM) Heart Rate 67 bpm (05/12/23 5:45 AM) 77 bpm (05/11/23 8:33 PM) 71 bpm (05/11/23 11:59 AM) Respiratory Rate 16 br/min (05/12/23 5:45 AM) 16 br/min (05/12/23 3:28 AM) 16 br/min (05/12/23 12:33 AM) Blood Pressure 147/80mmHg (05/12/23 8:03 AM) 143/77mmHg (05/12/23 5:45 AM) 128/65mmHg (05/11/23 8:33 PM) Mean Blood Pressure 94 mmHg (05/12/23 5:45 AM) 80 mmHg (05/11/23 8:33 PM) 81 mmHg (05/11/23 11:59 AM) Cuff Pulse Pressure 67 mmHg (05/12/23 8:03 AM) 66 mmHg (05/12/23 5:45 AM) 63 mmHg (05/11/23 8:33 PM) BP Location # 1 Right Arm (3/15/24 5:45 AM) Right Arm (05/11/23 8:33 PM) Right Arm (05/11/23 11:59 AM) Social History Social History Type Response Smoking Status Unknown if ever smok ed Sex Male Cardiology * Contributor_system, MUSE01: VERIFY, PERFORM Event Display: EKG Authored Date: [id number] Please click on link to see image. History and physical note * MD Ceballos Muhammad: MODIFY MD Ceballos Muhammad: MODIFY, MODIFY, MODIFY, MODIFY, MODIFY, MODIFY, MODIFY Event Display: H&P Authored Date: [id number] HISTORY AND PHYSICAL Name: TRESSA RODRIGUEZ Patient Number: [id number] : 1940 Date of Service: 05/05/2023 Surgical Hospital Day/Procedure: No procedures found Chief Complaint: _ Transferred from [facility] for management of acute on chronicsubdural hematoma History of Present Illness: _ 82 years old male patient with past medical history of polycystic kidney disease status post kidneytransplant in 2005 and now with chronic allograft nephropathy and baseline creatinine 1.3-1.4, hypertension, chronic indwelling Lopez's catheter, history of subdural hematoma and history of recurrentUTI who presented to [facility] as a transfer from [facility] for management of subduralhematoma. The patient resides in a fdc facility and over the last few weeks the care facility has noticed that the patient has been falling more than usual and more lethargic and confused. He has no significant falls requiring to transport to ED. There was no fever, chills or rigors. Noabdominal pain, nausea, vomiting, diarrhea or constipation. No chest pain or difficulty breathing. Of note, patient was being treated for UTI over the past week with Bactrim and without improvement in mental status. Previously patient was admitted to [facility] after a fall and head trauma and at that time was suspected from brain concussion he had encephalopathy. Patient was continued on his home aspirin on discharge. This time, upon presentation to [facility], CT brain was done and showed new acute on chronic subdural hematoma. Patient was transferred to [facility] for further evaluation and managementby neurosurgery team. CT abdomen and pelvis showed acute to subacute superior endplate compression fracture of L1 and L2, bladder is partially decompressed around the Lopez catheter and appears thick-walled with surrounding inflammation. The rectosigmoid is distended and filled with gas. Thick-walled and edematous appearing loop of small bowel in the mid abdomen correlated clinically for evidenceof nonspecific enteritis. Right pelvic renal transplant is normal in appearance and the kashia kidneys are markedly enlarged. Upon arrival to [facility], patient was afebrile with temperature 36.9, heart rate 75, blood pressure 149/73 and he was satting 98% on room air. Laboratory workup showed sodium of 136, potassium 4.6, BUN of20 and creatinine 1.49. CBC with white cell count 5.91, hemoglobin 11.9 and platelets 106. LFTs within normal and urinalysis was obtained showed 10-19 white blood cells and trace leukocyte esterase. Neurosurgery was consulted and recommended to hold aspirin in addition to no neurosurgical intervention. Medicine was called for admission for UTI. Review Of Systems: _ A complete 14 point ROS is otherwise negative unless mentioned in the above HPI Past Medical History: _ PKD status post kidney transplant in 2005 and now with chronic allograft nephropathy and baseline creatinine 1.3-1.4 Hypertension History of subdural hematoma Chronic indwelling Lopez's catheter History of recurrent UTI Depression Procedure History Procedure Procedure Date Comments None Surgical History: _ Kidney transplant in 2005 Transurethral resection of prostate Cataract surgery Family History: _ Mother with heart disease and hypertension Sister with history of renal transplant and hypertension Social History: _ Currently the patient resides in a fdc facility. No tobacco, alcohol or drugs use Allergies and Sensitivities: NKA Current Home Meds: (Last Updated 05/04 05:26) amLODIPine (amLODIPine 5 mg oral tablet) 5 mg PO Daily atorvastatin (atorvastatin 10 mg oral tablet) 10 mg PO qhs brimonidine ophthalmic (brimonidine 0.2% ophthalmic solution) 1 drop both eyes qhs mycophenolate mofetil (mycophenolate mofetil 250 mg oral capsule) 250 mg PO bid mycophenolate mofetil (mycophenolate mofetil 250 mg oral capsule) 250 mg PO bid sertraline (sertraline 50 mg oral tablet) 75 mg PO Daily sulfamethoxazole-trimethoprim (sulfamethoxazole-trimethoprim 800 mg-160 mg oral tablet) 1 tab PO bid tacrolimus (tacrolimus (generic) 1 mg oral capsule) 2 capsules in the morning and 1 capsule in the evening Vitals: Last Updated 05/05/23 04:56 Weights: Last Updated 05/05/23 03:47 Date Temp Pulse BP RR SpO2 FIO2 Date Wt(kg) Wt(lb) 05/04 04:56 71 148/78 15 96 08 03:47 73.2 161 05/04 03:44 36.9 75 149/73 19 98 05/04 03:47 73.2 161 24 Hr Tmax: 36.9 at 05/04 03:44 Initial Wt: 05/04 73.2 kg 161 lb Physical Exam: General: _ Chronic ill appearing, in no acute distress HEENT: _ Head normocephalic atraumatic, moist mucous membrane, EOMI, Small abrasion over the bridgeof the nose Neck: _ No lymphadenopathy or thyromegaly Cardiac: _ Normal s1/2, no murmurs, rubs or gallops. Pulse is regular. Lungs: _ Clear to auscultation bilateral, no crackles or wheeze Abdomen: _ soft, lax, no tenderness, positive bowel sounds, no guarding or rebound : _ No suprapubic tenderness Musculoskeletal: _ No edema, cyanosis or pallor. Left upper extremity AV fistula noted with palpable thrill. Neuro: _ Alert and orientedx4, no focal deficit Skin: _ Warm and dry, no rash noted Most Recent 24 Hour CBC/BMP Results CBC: on 05/05/2023 04:04 CMP: on 05/05/2023 04:04 11.9 136 106 20 5.9 106 87 36.5 4.6 20 1.49 Abs Neut = 3.9 Ca = 8.8 Most Recent 24 Hour Labs: 05/05/23 0512 Estimated CrCl 40.94 05/05/23 0404 MCH 29.5 MCHC 32.6 MCV 90.6 RBC 4.03 L MPV 8.8 L Immature Gran% 0.5 Neut% 65.7 Lymph% 23.7 Burke% 8.8 Baso% 0.3 Eos% 1.0 Immat Gran, Abs 0.03 Lymph, Abs 1.40 Burke, Abs 0.52 Baso, Abs 0.02 Eos, Abs 0.06 Type of Diff: See Flowsheet RDW 13.2 Anion Gap 10 Mg 1.9 PO4 3.0 eGFR CKD-EPI 47 L INR 1.3 H PT 15.9 H Alk Phos 61 ALT 12 AST 23 T Bili 0.9 Alb 3.8 Prot 6.3 L Bact (u) See Flowsheet Bili (u) See Flowsheet Ketones NEGATIVE Leuk Est See Flowsheet Nitrite (u) See Flowsheet Appear (u) See Flowsheet Color (u) See Flowsheet Glu (u) NEGATIVE Hgb (u) See Flowsheet pH (u) 7.0 Prot (u) 30 RBC (u) 0-4 Urobili 0.1-1.0 SG 1.023 WBC (u) 10-19 Squamous Epithelial Cells (u) See Flowsheet Mucous (u) See Flowsheet Studies: Pending or Completed in the Last [address] Abdomen and Pelvis Consult Ordered XR Chest [address] Head Consult Ordered EKG (ED) Completed ASSESSMENT: _ 82 years old male patient with past medical history of polycystic kidney disease status post kidneytransplant in 2005 and now with chronic allograft nephropathy and baseline creatinine 1.3-1.4, hypertension, chronic indwelling Lopez's catheter, history of subdural hematoma and history of recurrentUTI who presented initially to [facility] from nursing facility with complaints of becoming more confused with more falls over the last few weeks and was transferred to [facility] due to acute on chronic subdural hematoma. Patient was seen by neurosurgery and recommended no intervention.Patient will be admitted to internal medicine [facility] for treatment of UTI and further evaluation and ma nagement. PLAN: _ #Acute encephalopathy likely secondary to UTI and SDH: Improving #Acute on chronic subdural hematoma #Complicated UTI #Catheter associated UTI CT brain was done and showed new acute on chronic subdural hematoma. [facility]. CT abdomen and pelvis showed acute to subacute superior endplate compression fracture of L1 and L2, bladder is partially decompressed around the Lopez catheter and appears thick-walled with surrounding inflammation. The rectosigmoid is distended and filled with gas. Thick-walled and edematous appearing loop of small bowel in the mid abdomen correlated clinically for evidence of nonspecific enteritis. Right pelvic renal transplant is normal in appearance and the kashia kidneys are markedly enlarged. 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 -At home, patient on tacrolimus 2 mg every morning and 1 mg every afternoon in addition to [id number] mg twice daily -Will continue on the current immunosuppression medications -Will obtain tacrolimus level 30 minutes before morning dose today -Consult transplant nephrology for immunosuppression management #Mechanical Fall #Superior endplate compression fracture of L1 and L2 -PT/OT ordered -Neuro surgery Spine consulted, no intervention and recommended to obtain Thoracic and Lumbar SpineXR Chronic conditions: Hypertension: Continue home amlodipine 5 mg daily Hyperlipidemia: Continue home atorvastatin 10 mg nightly Depression: Continue Home Sertraline Home Medications Held: Aspirin due to subdural hematoma Diet: N.p.o. except for medications pending speech eval Dispo: [facility] DVT prophylaxis: Holding due to subdural hematoma Code: FULL Code, confirmed with patient at bedside. Patient was discussed with Dr. Ceballos Internal Medicine attending ATTENDING NOTE I saw and evaluated the patient at bedside, reviewed the lab and imaging results, and participated in the medical decision making for this patient. I discussed the diagnosis and care plan for the patient with the resident and nursing staff. I agree with the RESIDENT's findings and plan as written. I have edited the note above to reflect our joint care plan. Electronic Signature on File Electronically Reviewed/Signed by: Sincere Rea MD Author Signature Dt/Tm:05/05/2023 06:44 AM Resident Division of Internal Medicine Electronically Reviewed/Signed by: Sincere Rea MD Cosigner Signature Dt/Tm: 05/05/2023 06:47 AM Resident Division of Internal Medicine Electronically Reviewed/Signed by: Susan Ceballos MD Cosigner Signature Dt/Tm: 05/06/2023 06:59 AM Division of Internal Medicine - Hospitalist OS Geriatrics Consult * CRYSTAL Jefferson Jasmine: PERFORM, MODIFY, MODIFY, MODIFY, MODIFY, MODIFY, MODIFY, MODIFY Event Display: Geriatrics Consult Authored Date: [id number] INPATIENT GERIATRIC MEDICINE CONSULTATION Date: 05/05/2023 Primary Team:Internal Medicine Primary Attending:MD Stephen Kalil Requesting Provider: Ana Cristina Perales ASSESSMENT: 82-year-old male resident of [facility](memory care unit) with polycystic kidney disease status post kidney transplant in 2005 and now with chronic allograft nephropathy (baselinecreatinine 1.3-1.4), hypertension, chronic indwellingurinary catheter due to retention with h/o recurrent UTIs,dementia, and ahistory of a bilateral subdural hematomas who presented to [facility] as atransfer from [facility] with worsening AMS andambulatory dysfunctionconcerningfor acute on chronic subdural hematomas requiring a neurosurgical evaluation/intervention. Ultimately subdural hematomas were deemed to be stable withno indication for surgical intervention. He was [facility] for further management and concern for possible UTI. Geriatric Medicine consulted due to concerns for polypharmacy/adverse medication effect causing pt's AMS. PLAN/RECOMMENDATIONS: #Acute Delirium Superimposed on Unspecified Dementia Suspect SDHs and suspected UTI could be culprits. Unfortunately, patient presenting with multiple predisposing(advanced age, underlying dementia, hearing andvision impairment)& precipitating (intracranial bleeds, possible UTI, recent use of antibiotics) factors for delirium. Patient noted to have some parkinsonian findings on physical exam (tremors, rigidity, hypophonia) and appears to be havinghallucinations. It is unclear from available records as to what type of dementia the patient has. Given the aforementioned findings, would question as to whether this could beDLB? Unclear as to whether the tremors, hypophonia, cogwheeling/stiffness is his baseline. Patient does not appear to be on any neuroleptics as an outpatient and has not received any as an inpatient. 1-Consider checking RVP as patient did come froma nursing facility.Elderly patients do not always present with respiratory symptoms, but could present as acutely delirious. 2-Continue first-line, evidence-based, non-pharmacologic multidisciplinarydeliriummanagement measures: -Monitor and treat for reversible causes of delirium: Drugs, Electrolyte Disturbances, Infection, Intracranial Disorders, Bowel/Bladder Dysfunction, Myocardial/Pulmonary Disorders -Encourage family presence at the bedside, which will help withorientation, as well as provide comfort to the patient -Can encourage family to bring a familiar object(blanket, pictures, music, etc.)from home that may provide comfort of distraction to the patient -Avoid sleep deprivation & promote sleep hygiene (blinds open during the day, patient awake during day hours, quiet time at night, cluster care at night to prevent interruptions of sleep, ifpossible) -Encourage mobilization and activity with supervision and assistance -Minimize tethers (IVs, monitor lines, catheters, restraints) as much as possible. -Provide sensory devices (eyeglasses, hearing aides) -Offer frequent redirection andreorientation as needed while awake -Monitor and treat for volume depletion to prevent dehydration (can precipitate/exacerbate delirium) -Assess & treat for any constipation (can precipitate/exacerbate delirium) -Avoid/minimize common medications that cause delirium: diphenhydramine, narcotics, benzodiazepines, anticholinergics, antihistamines, if possible 2-Yjz-ofoohbsrpxhgj measures should always be taken first. Antipsychotics can increase risk of stroke, extrapyramidal symptoms (EPS), worsen metabolic profile, prolong QTc, lengthen or worsen delirium, as well as increase overall all-cause mortality (especially in older adults). 4- recommend empirically treating for pain with scheduled vs PRN Tylenol while patient is deliriousand not able to consistently/clearly communicate his needs 5-If patient is with severe agitated delirium that is unresponsive to non- pharmacologic measures and is posing a danger to self or others, would recommend using quetiapine 12.5mg PO qHS. Would not use any other neuroleptics given findings on P.E concerning for extrapyramidal symptoms 6-Please note the symptoms of delirium may persist beyond correction of underlying etiology. It is expected that the pt's mental statuswill continue to wax/wane, but there should be a general trendtoward improvement over time.Unfortunately, the symptoms of deliriumcan persist for days to weeks, and sometimesmonths in a substantial portion of affected individuals (especially those with underlying cognitive impairment who may not fully return back to their previous baseline after an episode of delirium). #Frailty #Concern for Polypharmacy 6-Would recommend stopping ASA indefinitely given it was reportedly being used for primary prevention. Would not resume given pt's advanced age, and recurrent falls.(DOI: 10.1056/[id number]) 7-Would consider discontinuing statin. Statin therapy seems to provide no benefit to patients ages > 75 years without ASCVD and there is no definitive evidence that statins can prevent future CAD or for people with CAD who are older than 80 years (https://www.aafp.org/pubs/afp/issues/ 215/p742.pdf) 8- Follow-up on urine culture. If negative, would not continue antibiotics for asymptomatic bacteruria. Notably, medicationsincluding antibiotics can worsen/prolong delirium. Thank you for allowing Geriatric Medicine to participate in the care of this patient. We willcontinue to followperipherally. Please do not hesitate to contact us if you have any questions, concerns or upon patient/family request via [employer] (Geriatric Consults On-Call) Chief Complaint pt comes in from [facility] for a neuro consult due subdural hematoma. Hx of dementia aox1. per ems pt had multiple falls and has become more lethargic per facility. suspected UTI. Reason for Consultation Recommendations for altered mental status and medications History of Present Illness Mr. Tressa Rodriguez is an 82 year old male resident of [facility](memory care unit) with polycystic kidney disease status post kidney transplant in 2005 and now with chronic allograft nephropathy (baseline creatinine 1.3-1.4), hypertension, chronic indwellingurinary catheter due to retention with h/o recurrent UTIs,dementia, and ahistory of subdural hematoma who presented to [facility] as [facility] transfer from [facility] due to concerns for acute on chronic subdural hematoma requiring neurosurgical intervention. Of note, the patient was reportedly with increased confu alicia/altered mental status and worsening ambulatory dysfunction withfalls over the last few weeks. [1] He was treated for a UTI over the past week with Bactrim without improvement in his mentation.Of note, he was previously hospitalized at [facility] after a fall with head trauma, and at that time was encephalopathic andsuspected to have a concussion. Notably, he was continued on his homeASA after that discharge. Upon arrival to [facility], the Neurosurgery was consulted and recommended to hold aspirin in addition to no neurosurgical intervention. The patient was admitted to the Internal Medicineservice for further management.[2] Geriatric Medicine consulted due to concerns for polypharmacy/adverse medication effect causing pt's AMS. Review of Systems Unable to obtain due to AMS. States that he is cold, saying "cover me up." Physical Exam Vitals & Measurements T:36.5C TMIN:36.5C TMAX:38.4C HR:87(Monitored) RR:16 BP:147/94 SpO2:97% Oxygen Therapy:Room air WT:73.200kg(Dosing) WT:73.2kg Input and Output - Last 24 hours (Last 8 hours) Total In: 550 (442) Total Out: 400 (400) Total Balance: 150 (42) MED INTAKE:550 (442) Indwellin (400) Physical Exam: General:Elderly, frail-appearing man lying in bed in NAD with 1:1 and mitts on Neuro:Awake, alert. Oriented to person. Patient with mumbling, hypophonic speech that is hard to comprehend. Tremors to bilateral arms and legs, face. Cardiac:RRR. Normal S1, S2 Peripheral Vasc:Warm, well perfused. Palpable radial and DP pulses bilaterally. No edema. Pulm:Unlabored on room air. Lungs diminished, clear bilaterally. HEENT:Normocephalic. Left sided facial droop. Anicteric sclera. Nares patent. MMM. GI:Soft, nontender, nondistended. Bowel sounds present. MSK:Moving all extremities purposefully. Decreased generalized muscle bulk in upper and lower extremities Skin:Warm, dry Psych: Pleasant, restless GERIATRIC ASSESSMENT: Prior documentation of Cognitive Impairment or Dementia: Yes:Documented hx of dementia, but does not specify what type Mini-Cog Score:N/A Delirium Screening:Positive Functional Status Prior to Hospitalization Activities of Daily Living: Feeding:Independent Transferring:Needs Assistance Toileting:Needs Assistance Dressing:Needs Assistance Bathing:Needs Assistance Instrumental Activities of Daily Living: Using the telephone:Needs Assistance Shopping:Dependent Preparing food:Dependent Housekeeping:Dependent Doing laundry:Dependent Using transportation/driving:Dependent Handling medications:Dependent Handling finances:Dependent Continence:Incontinent of Bowel; with chronic urinary catheter in place that is exchanged monthlyand PRN at facility Impaired mobility: (Prior to Admission): YesIf yes, type of assistive device:Unknown History of falls in past year?(If yes, # of falls if known):Yes:unknown number Any Signs of Poor Nutritional State?:Sarcopenia/Muscle loss Difficulty swallowing:No Diagnostic Results (05/05/2023 04:[address] Head Consult) FINDINGS: Cerebral parenchyma: No acute intraparenchymal hemorrhage. No acute territorial infarct. French-whitedifferentiation is maintained. Chronic mineralization of the basal ganglia. Extra-axial spaces: Right frontal convexity heterogeneous subdural hematoma measuring up to 8 mm compared with 6 mm on 01/30/2023. No significant mass effect. Ventricles: Unremarkable. Mass effect: None. Posterior Fossa: Normal position of the cerebellar tonsils. Calvarium: Unremarkable Visualized paranasal sinuses/mastoids: Mild opacification of ethmoid air cells. Otherwise paranasalsinuses are clear. IMPRESSION: 1. The subdural hematoma along the right frontal convexity measuring 8 mm, just slightly increasecompared to prior head CT from 01/30/2023, previously measuring 6 mm. No significant mass effect. 2. No new acute intracranial hemorrhage. [3] (05/05/2023 04:[address] Abdomen and Pelvis Consult) FINDINGS: Lower chest: Mild atelectasis at the lung bases. Coronary artery disease. Abdomen Liver, Gallbladder \\T\\ bile ducts: Innumerable hypodensities throughout the liver. Patent portal vein. Decompressed gallbladder. Central biliary dilation versus periportal cysts. Number of cystic lesions has increased compared to 2010 MRI. Pancreas: Normal Spleen: Normal Adrenals: Normal Kidneys, collecting system and ureters: Enlarged, polycystic kidneys of varying density and with scattered calcifications. Left upper quadrant lesion measuring 9.2 cm is presumed related to the kidney, although not clear on this image. Retroperitoneum, lymph nodes, and vessels: Severe atherosclerosis of the aorta and involving the branching vessels. Bowel \\T\\ Mesentery: Thickened loops of small bowel in the midabdomen. There may be associated edema in the mesentery, but limited by paucity of intra-abdominal fat. Nonobstructive bowel. Pelvis Bladder: Small amount of gas in the bladder with small amount of urine and Lopez catheter present. Reproductive organs: No gross abnormality for technique Extraperitoneal, lymph nodes, vessels: Atherosclerosis. Right lower quadrant renal transplant. There is gas in the collecting system. No hydronephrosis. Normal enhancement. Osseous and body wall: Limited assessment of the spine without dedicated coronal or sagittal images. Degenerative changes in the spine are present. Nonacute left-sided rib fractures. IMPRESSION: 1. Of note, no sagittal or coronal reconstructions. 2. There is gas in the transplanted kidney collecting system, which may be iatrogenic (Lopez catheter present in the bladder with small amount of gas) or due to infection. 3. Polycystic kidneys. The large left upper quadrant lesion is presumed related to the kidney (complex cyst), although not definitive based on the limited available images and not otherwise characterized. 4. Multiple hypodensities in the liver and along the portal vein. These have progressed from 2010MRI. These are not well characterized without contrast, although presumably represent cysts. 5. Hypodensities along the portal vein are likely peribiliary cysts, less likely dilated bile ducts. [4] (05/05/2023 10:52 EST XR Spine Lumbosacral 2 or 3 Views) FINDINGS: Supine AP and lateral views of the lumbar spine. Again seen are superior endplate fractures at L1 and L2. L3, L4 and L5 are normal in height. Normalalignment. Degenerative endplate osteophytes at each level. Narrowing of the L4-5 disc space. Degenerative changes of facet joints. SI joints and included portions both hips and pubic symphysis are normal. Calcification of the abdominal aorta. IMPRESSION: Superior endplate fractures of L1 and L2, similar to that seen on CT scan from 05/04/2023. [5] Attestation I, CRYSTAL Zelaya, personally spenta total of _70__ minutesof discrete time performing the activities of this visit. 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 and baseline creatinine 1.3-1.4 Hypertension History of subdural hematoma Chronic indwelling Lopez's catheter History of recurrent UTI Depression [7] Medications Inpatient acetaminophen(Tylenol), 650 mg= 2 tab, PO, q6h, PRN amLODIPine, 5 mg= 1 tab, PO, Daily atorvastatin, 10 mg= 1 tab, PO, qhs brimonidine ophthalmic(brimonidine 0.15% ophthalmic solution), 1 drop, both eyes, qhs mycophenolate mofetil, 250 mg= 1 cap, PO, bid sertraline, 75 mg= 3 tab, PO, Daily sulfamethoxazole-trimethoprim(Bactrim), 160 mg= 1 tab, PO, q12h tacrolimus, 1 mg= 1 cap, PO, q24h tacrolimus, 2 mg= 2 cap, PO, q24h Home amLODIPine(amLODIPine 5 mg oral tablet), 5 mg= 1 tab, PO, Daily atorvastatin(atorvastatin 10 mg oral tablet), 10 mg= 1 tab, PO, qhs brimonidine ophthalmic(brimonidine 0.2% ophthalmic solution), 1 drop, both eyes, qhs mycophenolate mofetil(mycophenolate mofetil 250 mg oral capsule), 250 mg= 1 cap, PO, bid mycophenolate mofetil(mycophenolate mofetil 250 mg oral capsule), 250 mg= 1 cap, PO, bid, 3 refills sertraline(sertraline 50 mg oral tablet), 75 mg= 1.5 tab, PO, Daily sulfamethoxazole-trimethoprim(sulfamethoxazole-trimethoprim 800 mg-160 mg oral tablet), 1 tab, PO, bid tacrolimus(tacrolimus (generic) 1 mg oral capsule), See Instructions, 3 refills Allergies NKA Social History Smoking Status Unknown if ever smoked 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 Resided in a memory care unit. Family History Mother with heart disease and hypertension Sister with history of renal transplant and hypertension [8] Father in an accident at the age of 41 without diagnosis of kidney disease. [9] Lab Results Test Name Test Result Date/Time Na 136 mmol/L 05/05/2023 04:04 EST K 4.6 mmol/L 05/05/2023 04:04 EST Cl- 106 mmol/L 05/05/2023 04:04 EST HCO3 20 mmol/L 05/05/2023 04:04 EST Anion Gap 10 mmol/L 05/05/2023 04:04 EST BUN 20 mg/dL 05/05/2023 04:04 EST Cret 1.49 mg/dL 05/05/2023 04:04 EST Estimated CrCl 40.94 mL/min 05/05/2023 05:12 EST eGFR CKD-EPI 47 mL/min/1.73 m2 05/05/2023 04:04 EST Glu 87 mg/dL 05/05/2023 04:04 EST Ca 8.8 mg/dL 05/05/2023 04:04 EST Mg 1.9 mg/dL 05/05/2023 04:04 EST PO4 3.0 mg/dL 05/05/2023 04:04 EST WBC 5.91 K/uL 05/05/2023 04:04 EST Hgb 11.9 g/dL 05/05/2023 04:04 EST Hct 36.5 % 05/05/2023 04:04 EST RBC 4.03 M/uL 05/05/2023 04:04 EST MCV 90.6 fL 05/05/2023 04:04 EST MCHC 32.6 g/dL 05/05/2023 04:04 EST MCH 29.5 pg 05/05/2023 04:04 EST RDW 13.2 % 05/05/2023 04:04 EST Plts 106 K/uL 05/05/2023 04:04 EST MPV 8.8 fL 05/05/2023 04:04 EST INR 1.3 05/05/2023 04:04 EST PT 15.9 seconds 05/05/2023 04:04 EST FK506 2.9 ng/mL 05/05/2023 04:04 EST ALT 12 unit/L 05/05/2023 04:04 EST T Bili 0.9 mg/dL 05/05/2023 04:04 EST Alk Phos 61 unit/L 05/05/2023 04:04 EST AST 23 unit/L 05/05/2023 04:04 EST Alb 3.8 g/dL 05/05/2023 04:04 EST Prot 6.3 g/dL 05/05/2023 04:04 EST Color (u) YELLOW 05/05/2023 04:04 EST Appear (u) CLEAR 05/05/2023 04:04 EST Glu (u) NEGATIVE 05/05/2023 04:04 EST Bili (u) NEGATIVE 05/05/2023 04:04 EST Ketones NEGATIVE 05/05/2023 04:04 EST SG 1.023 05/05/2023 04:04 EST Hgb (u) NEGATIVE 05/05/2023 04:04 EST pH (u) 7.0 unit 05/05/2023 04:04 EST Prot (u) 30 mg/dL 05/05/2023 04:04 EST Urobili 0.1-1.0 05/05/2023 04:04 EST Nitrite (u) NEGATIVE 05/05/2023 04:04 EST Leuk Est TRACE 05/05/2023 04:04 EST WBC (u) 10-19 05/05/2023 04:04 EST RBC (u) 0-4 05/05/2023 04:04 EST Bact (u) FEW 05/05/2023 04:04 EST Squamous Epithelial Cells (u) NONE 05/05/2023 04:04 EST Mucous (u) FEW 05/05/2023 04:04 EST The most recent lab resultswere independently reviewed. Independent interpretation of the aforementioned results: UA largely unremarkable; not strongly suspicious for infection. [1]H&P; MD Álvaro, Silvis 05/05/2023 05:42 EST [2]H&P; MD Álvaro, Sincere 05/05/2023 05:42 EST [3]OO CT Head Consult; MD Bruce, samuel 05/05/2023 04:55 EST [4]OO CT Abdomen and Pelvis Consult; MD Waylon, Marcia L 05/05/2023 04:55 EST [5]XR Spine Lumbosacral 2 or 3 Views; MD Derrick, Izzy L 05/05/2023 10:52 EST [6]H&P; MD Álvaro, Sincere 05/05/2023 05:42 EST [7]H&P; MD Álvaro, Sincere 05/05/2023 05:42 EST [8]H&P; MD Álvaro, Silvis 05/05/2023 05:42 EST [9].Outpt Ltr; Vanessa Bond 04/21/2010 00:00 EST Electronic Signature on File Electronically Reviewed/Signed by: CRYSTAL Zelaya Author Signature Dt/Tm:05/05/2023 08:36 PM Division of Internal Medicine - Hospitalist MARGARITA * MD Keegan, Marco Nino: MODIFY MD Keegan, Marco Nino: MODIFY, PERFORM MD Jazzy, Tristen Basurto: PERFORM Event Display: Neurosurgery Consult Authored Date: [id number] NEUROSURGERY INPATIENT CONSULTATION REPORT Name: TRESSA RODRIGUEZ Patient Number: [id number] : 1940 Date of Service: 05/05/2023 CONSULTING SERVICE: ED REASON FOR CONSULTATION: chronic/subacute subdural hematomas HISTORY: This is a 82-year-old gentleman with a history of kidney transplant on chronic immunosuppression, hypertension, frequent UTIs with a chronic Lopez catheter, dementia who presents [facility] transfer from [facility] for recurrent falls in the setting of complicated UTI. He was found to have bilateral subacute, chronic subdural hematomas that were present on his previous scan in January 2023. Is unclear as to why this January scan was done but it can be assumed that it was due to recurrent falls. There is some mild increase in the chronic component of the subdurals but there is no mass effect or midline shift. The patient is on aspirin for general health reasons. Rest of the history is l imited by the patient's baseline dementia and cognitive status. REVIEW OF SYMPTOMS: Negative except as stated in HPI PAST MEDICAL HISTORY/SURGICAL HISTORY: Pertinent medical and surgical history is reviewed in the history of present illness ALLERGIES: As documented in the EMR FAMILY HISTORY: Pertinent medical history is reviewed in the history of present illness SOCIAL HISTORY: Pertinent social history is included in the history of present illness PHYSICAL EXAMINATION AND IMAGING REVIEW: Patient is confused but conversant. She was a round reactive to light, extraocular movements are intact. He does appear to have a slight left facial. His bilateral extremities are tremulous and he does not participate in drift testing but he is fullstrength. His bilateral lower extremities are also full strength. He does not have sensation deficits. ASSESSMENT/RECOMMENDATIONS: ##Subacute, chronic subdural hematomas -No neurosurgical intervention for active care warranted. -Recommend holding aspirin for 14 days and for reconsideration of if this is needed for general health in the setting of his chronic subdurals. -Defer rest of medical management to the primary team.- ##L1/2 compression fracture URXR for stabilty I saw the patient, reviewed the history with resident and staff, performed the relevant portions ofthe physical examination, and agree with the resident's plan of care. No neurosurgical intervention. Will ask vascular neurosurgery about possible mma. Follow up as outpatient with repeat head CT. Electronic Signature on File Electronically Reviewed/Signed by: Tristen Purcell MD Author Signature Dt/Tm:05/05/2023 05:22 AM Resident Department of Neurosurgery Electronically Reviewed/Signed by: Tristen Purcell MD Cosigner Signature Dt/Tm: 05/05/2023 07:42 AM Resident Department of Neurosurgery Electronically Reviewed/Signed by: MD Damián Leeigner Signature Dt/Tm: 05/05/2023 09:00 AM Department of Neurosurgery DSB .D/C Summary * MD Ayo, Valerie: PERFORM, MODIFY, MODIFY, MODIFY, MODIFY MD Finesse, Mati: MODIFY Event Display: .D/C Summary Authored Date: [id number] [facility] For medical concerns, call: . Address: [place], [place] [address] Phone:[phone] (HOME) [phone] (ALTERNATE) :1940 . Date of Admission:05/05/2023 Date of Discharge:05/12/2023 Physician:MD Finesse, Mati Service:Internal Medicine Discharge Disposition: Primary Care Provider/Phone: LEIGHA SAUCEDA DO Principal Diagnosis: Delirium superimposed on dementia Other Diagnoses: Acute on chronic intracranial subdural hematoma. Immunocompromised Polypharmacy Major Tests and Procedures: MMA embo Right sided 05/09/2023 Brief History of Present Illness: Mr. Rodriguez is an 82 year- old male patient with past medical history of polycystic kidney disease status post kidney transplant in 2005 and now with chronic allograft nephropathy and baseline creatinine 1.3-1.4, hypertension, chronic indwelling Lopez's catheter, history of subdural hematoma and history of recurrent UTI who presented to [facility] as a transfer from [facility] for management of subdural hematoma. The patient resides in a fdc facility and over the last few weeks the care facility has noticed that the patient has been falling more than usual and more lethargic and confused. He has no significant falls requiring to transport to ED. There was no fever, chil ls or rigors. No abdominal pain, nausea, vomiting, diarrhea or constipation. No chest pain or difficulty breathing. Of note, patient was being treated for UTI over the past week with Bactrim and without improvement in mental status. Previously patient was admitted to [facility] after a fall and head trauma and at that time was suspected from brain concussion he had encephalopathy. Patient was continued on his home aspirin on discharge. This time, upon presentation to [facility], CT brain was done and showed new acute on chronic subdural hematoma. Patient was transferred to [facility] for further evaluation and managementby neurosurgery team. CT abdomen and pelvis showed acute to subacute superior endplate compression fracture of L1 and L2, bladder is partially decompressed around the Lopez catheter and appears thick-walled with surrounding inflammation. The rectosigmoid is distended and filled with gas. Thick-walled and edematous appearing loop of small bowel in the mid abdomen correlated clinically for evidenceof nonspecific enteritis. Right pelvic renal transplant is normal in appearance and the kashia kidneys are markedly enlarged. Upon arrival to [facility], patient was afebrile with temperature 36.9, heart rate 75, blood pressure 149/73 and he was satting 98% on room air.Laboratory workup showed sodium of 136, potassium 4.6, BUN of 20 and creatinine 1.49. CBC with white cell count 5.91, hemoglobin 11.9 and platelets 106. LFTs within normal and urinalysis was obtained showed 10-19 white blood cells and trace leukocyte esterase.Neurosurgery was consulted and recommended to hold aspirin (and thenlater discontinue it).Patient was admitted to the Medicine service for delirium management superimposed on dementia with Neurosurgery following to determine possible need for embolization procedure. Hospital Course: Mr. 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 He was transferred to [facility] for neurosurgery evaluation of acute on chronic subdural hematoma and underwent right MMA embolization on 05/08 without complication. A decision was made to discontinue his aspirin indefinitely given fall history with complication of subdural hematoma development. His atorvastatin was also discontinued as it was deemed unnecessary in a patient of 82 years oldand contributes to polypharmacy. Superior endplate compression fracture of L1 and L2 was noted on x-ray but no operative intervention was planned this admission. The patient will follow up with Neurosurgery on an outpatient basis (their schedulers are working on finding him an appointment date and time and will call with this information. The patient'saltered mental status was deemed likelysecondary todelirium superimposed on underlying dementia. He is deemed to be back to his baseline level of function and is stable for discharge. Exam on Discharge: Vitals & Measurements: T:37.1C TMIN:36.9C TMAX:37.3C HR:67(Monitored) RR:16 BP:143/77 SpO2:100% Oxygen Therapy:Room air Physical Exam: General:Alert, in no acute distress. Resting in bed. HEENT:Normocephalic, atraumatic. No scleral icterus. Pupils equal round, reactive bilaterally. Cardiac:Regular rate and rhythm, S1, S2, no S3 or S4. No murmurs/rubs/gallops appreciated. Lungs:Clear bilaterally without wheeze, rales or rhonchi. Abdomen:Soft, nontender, nondistended. Extremities:No edema bilaterally. Neuro:A&Ox1 (baseline). Bilateral upper extremity tremors. Skin:Warm, well perfused. No jaundice or rashes. Discharge Medications: 1.Mycophenolate mofetil (mycophenolate mofetil 250 mg oral capsule) 250 mg (1 cap) by mouth 2 timesdaily. 2.Tacrolimus (tacrolimus (generic) 1 mg oral capsule) See Instructions . 2 capsules in the morning and 1 capsule in the evening. 3.AmLODIPine (amLODIPine 5 mg oral tablet) 5 mg (1 tab) by mouth once daily. 4.Sertraline (sertraline 50 mg oral tablet) 75 mg (1.5 tab) by mouth once daily. 5.Brimonidine ophthalmic (brimonidine 0.2% ophthalmic solution) 1 drop in both eyes at bedtime. Allergies and Sensitivities: NKA Tests Pending: None Follow-Up Tests and Studies After Discharge: Follow-up Appointments 1) Please follow up with your primary care physician within 7 daysof your discharge. Please call their office to schedule your appointment. A discharge summary will be sent to your primary care physician to ensure continuity of care. Please bring this discharge summary with you to your next office appointment so that your provider can review it at that time. 2)Our Neurosurgery Departmentis setting up a follow-up appointment on an outpatient basisin ~4 weeks from your discharge date from the hospital to ensure that you are still doing wellfollowing the right MMA embolization they performedwhile you were admitted. You will receive a call fromtheir schedulers with the date and time of this appointment.In the rare event you do not hearfrom their schedulers within 3 business days, please call the [facility] Operatorat [phone] and ask to be connected to Neurosurgeryoutpatient appointment scheduling team to ensure this follow up has been scheduled and you are aware of the date and time. Discharge Services: Service: Organization: Business Address: Phone Number: [facility] AND [address] , [place], [address] Care Instructions: Instructions From Your Doctor You were admitted to [facility] for treatment ofacute on chronic subdural hematoma requiring right MMA embolization by Neurosurgery. Medications - Your medication list has been reviewed and reconciled upon discharge to ensure accuracy and continuity of care. - You are provided with a list of all your current medications at this time. Please review closely and make note of any changes. - Please take all of your medications exactly as prescribed. - Tell your primary care provider if you cannot afford your medications. - Call your primary care provider if you are having any side effects or any other problems. - Call your primary care provider before taking any over the counter medications or supplements, including herbals and vitamins, because some of these may interact with your current medications and/or make your symptoms worse. Follow-up Appointments 1) Please follow up with your primary care physician within 7 daysof your discharge. Please call their office to schedule your appointment. A discharge summary will be sent to your primary care physician to ensure continuity of care. Please bring this discharge summary with you to your next office appointment so that your provider can review it at that time. 2)Our Neurosurgery Departmentis setting up a follow-up appointment on an outpatient basisin ~4 weeks from your discharge date from the hospital to ensure that you are still doing wellfollowing the right MMA embolization they performedwhile you were admitted. You will receive a call fromtheir schedulers with the date and time of this appointment.In the rare event you do not hearfrom their schedulers within 3 business days, please call the [facility] Operatorat [phone] and ask to be connected to Neurosurgeryoutpatient appointment scheduling team to ensure this follow up has been scheduled and you are aware of the date and time. If you notice the following symptoms Please call your primary care provider for symptoms including, but not limited to: fevers (temperatures >100.4 degrees F or 38.1 degrees C), chills, intractable nausea or vomiting, diarrhea, rash,shortness of breath, bleeding, pain, or if you experience any worsening of the symptoms that brought you to the hospital. In particular, please be cautious forworsening lethargy, increased confusion, or any change in neurologic function. ForEMERGENCYandVERY SERIOUShealth-related issues, such as chest pain, shortness of breath, or sudden onset of the symptoms that brought you to the hospital, you may need to [id number] go directly to theEmergency Room. Contact our Careline at . If unable to contact your physician and you feel it is an emergency, go to the nearest Emergency Room or call 911 Diet Instructions Speech Therapy Recommendations: Regular solids Thin liquid Swallow Precautions:--Assist with tray set up as needed--Small bites/sips--Pills one at a time Activity Instructions Physical Therapy: Weight bearing as tolerated (bilateralLEs) Resume normal activity as tolerated. . Advance Directive:Unable to Obtain Information I personally spent35 minutes in discharge planning. Electronic Signature on File CC: Leigha Sauceda, [address] [facility] [id number] * Electronically Reviewed/Signed by: Valerie Rollins MD Author Signature Dt/Tm:05/12/2023 08:07 AM Resident Division of Internal Medicine Electronically Reviewed/Signed by: Mati Kilpatrick MD Cosigner Signature Dt/Tm: 05/12/2023 11:22 AM Division of Internal Medicine - Hospitalist MANPREET Emergency department Summary note * MD Brent, Sandor Killian: MODIFY, MODIFY, MODIFY, PERFORM, MODIFY, MODIFY, MODIFY MD Kenyon, Abran: MODIFY Event Display: ED Summary Authored Date: [id number] Basic Information Time Seen: MD Brent, Sandor Killian 05/05/2023 03:22 Chief Complaint pt comes in from [facility] for a neuro consult due subdural hematoma. Hx of dementia aox1. per ems pt had multiple falls and has become more lethargic per facility. suspected UTI. History of Present Illness Patient is an 82-year-old male with a history ofkidney transplantfor polycystic kidney(2005)on chronic immunosuppression,HTN,chronic indwelling Lopez catheter,, frequent UTIs,dementia,[facility]. Patient presented to [facility] from [facility]care facility for evaluation of possible ongoing UTI. Patient does have frequent, resistant UTIs. Over the last few weekscare facility has noticedhe has been falling more often and seems more lethargic than usual. The patienthas been confused. He is not on any anticoagulating medications. The patient himself offersno complaints currently. He has reportedly been compliant with his outpatient medications. He reportedly has beenbeing treatedfor UTI with Bactrim without improvementin hissymptoms or [facility] condition[facility] Results of the studies significant for acute on chronicright-sided subdural hematoma. Patient was subsequently transferred to [facility] for neurosurgical evaluation. Review of Systems A 10 point review of systems was completed and are all negative except for as noted above in HPI. Physical Exam Vitals & Measurements T:36.9C HR:75(Monitored) RR:19 BP:149/73 SpO2:98% HT:182.88cm WT:73.200kg(Dosing) WT:73.2kg BMI:21.89 Vitals: Vitals were reviewed and noted as above General:Tired but nontoxic-appearing, no acute distress Skin:Warm, dry, no rashes HEENT:NCAT, MMM, normal conjunctiva, clear sclera. Smallabrasion noted over the bridge of thenose Neck:Trachea midline Cardiovascular:RRR, normal S1/S2 present, no RMG, 2+ peripheral pulses Respiratory:CTAB, no wheezes, rhonchi, or crackles, respirations are non-labored Chest wall:No deformity Gastrointestinal:Soft, nontender, nondistended abdomen. No rebound tenderness, involuntary guarding, or peritoneal signs. No appreciable organomegaly : Chronic indwelling Lopez catheter in place,dark-colored urine noted in bag Rectal:Deferred Extremities: Left upper extremity AV fistula notedpalpable thrill Neurological:Normal speech observed, moves all extremities spontaneously, no focal neurologic deficits MSK:No bony abnormalities or trauma Psychiatric:Cooperative, appropriate affect Medical Decision Making 82-year-old male with history as noted above presents to the emergency department as a transfer from [facility] for management ofUTI and acute on chronic subdural hematoma. On presentation vital signs noted afebrile, nontachycardic, hemodynamically stable,breathing comfortably on room air. Physical exam notable for tired but nontoxic-appearing gentleman resting in bed inno acute distress. Cardiorespiratory and abdominal exams unremarkable. Chronic indwelling Foleycatheter was noted putting out darkyellow urine. Neurologic examappears nonfocal. Patient brought CT imaging on a disc which will be uploaded to PACS. We will obtain over reads. Will obtain labs including CBC, CMP, magnesium/phosphorus levels,PT/INR,UA, urine culture, EKG, chest x-ray. Will reach out toneurosurgeryonce CT imaging is uploaded, and anticipate likelymedicine admissionfor multiple comorbidities. Reexamination/Reevaluation Independent review of patient's labs show no leukocytosis, significant anemia or electrolyte abnormalities. Creatinine elevated 1.49 (unknown baseline). Urinalysis showed negative nitrites, traceleukocyte esterase, 1019 WBCs, few bacteria. Will give dose of ceftriaxone. CT imaging was uploaded to PACS. I did discuss case with neurosurgery team. Upon their preliminary review ofimaging, no acute surgical intervention indicated at this time. They advised patient be admitted to internal medicine service forcontinued management of UTI in setting ofkidney transplant. I discussed case with internal medicinetriage resident. Following their evaluation of the patient,he was subsequently admittedin clinically stable condition. No acute events, patient plaints, nurse concerns were brought to my attention prior to patient being admitted. Assessment/Plan Subdural hematoma Urinary tract infection Encephalopathy Medication Reconciliation Unchanged mycophenolate mofetil (mycophenolate mofetil 250 mg oral capsule)1 cap by mouth 2 times daily for 90 Days. mycophenolate mofetil (mycophenolate mofetil 250 mg oral capsule)1 cap by mouth 2 times daily for 90 Days. Refills: 3. tacrolimus (tacrolimus (generic) 1 mg oral capsule)2 capsules in the morning and 1 capsule in the evening. Refills: 3. Attestation I personally performed a history and physical exam and discussed the management plan with the resident. I independently confirmed gutierrez portions of the history and physical exam, and agree with resident note which I have reviewed and edited to reflect my findings. Abena Prescott MD Medication Administration Administered: Medications: cefTRIAXone, 1000 mg, IV (05/05/2023 06:00 EST) Allergies NKA Lab Results Chemistry LATEST RESULTS Na 05/05/23 04:04 136 mmol/L K 05/05/23 04:04 4.6 mmol/L Cl- 05/05/23 04:04 106 mmol/L HCO3 05/05/23 04:04 20 mmol/L Low Anion Gap 05/05/23 04:04 10 mmol/L BUN 05/05/23 04:04 20 mg/dL Cret 05/05/23 04:04 1.49 mg/dL High Estimated CrCl 05/05/23 05:12 40.94 eGFR CKD-EPI 05/05/23 04:04 47 mL/min/1.73 m2 Low Glu 05/05/23 04:04 87 mg/dL Ca 05/05/23 04:04 8.8 mg/dL Mg 05/05/23 04:04 1.9 mg/dL PO4 05/05/23 04:04 3.0 mg/dL CBC LATEST RESULTS WBC 05/05/23 04:04 5.91 K/uL Hgb 05/05/23 04:04 11.9 g/dL Low Hct 05/05/23 04:04 36.5 % Low RBC 05/05/23 04:04 4.03 M/uL Low MCV 05/05/23 04:04 90.6 fL MCHC 05/05/23 04:04 32.6 g/dL MCH 05/05/23 04:04 29.5 pg RDW 05/05/23 04:04 13.2 % Plts 05/05/23 04:04 106 K/uL Low MPV 05/05/23 04:04 8.8 fL Low Type of Diff: 05/05/23 04:04 AUTO Immature Gran% 05/05/23 04:04 0.5 % Neut% 05/05/23 04:04 65.7 % Lymph% 05/05/23 04:04 23.7 % Burke% 05/05/23 04:04 8.8 % Baso% 05/05/23 04:04 0.3 % Eos% 05/05/23 04:04 1.0 % Immat Gran, Abs 05/05/23 04:04 0.03 K/uL Neut, Abs 05/05/23 04:04 3.88 K/uL Lymph, Abs 05/05/23 04:04 1.40 K/uL Burke, Abs 05/05/23 04:04 0.52 K/uL Baso, Abs 05/05/23 04:04 0.02 K/uL Eos, Abs 05/05/23 04:04 0.06 K/uL Coagulation LATEST RESULTS INR 05/05/23 04:04 1.3 High PT 05/05/23 04:04 15.9 seconds High Liver/GI LATEST RESULTS ALT 05/05/23 04:04 12 unit/L T Bili 05/05/23 04:04 0.9 mg/dL Alk Phos 05/05/23 04:04 61 unit/L AST 05/05/23 04:04 23 unit/L Nutrition LATEST RESULTS Alb 05/05/23 04:04 3.8 g/dL Prot 05/05/23 04:04 6.3 g/dL Low Urine LATEST RESULTS Color (u) 05/05/23 04:04 YELLOW Appear (u) 05/05/23 04:04 CLEAR Glu (u) 05/05/23 04:04 NEGATIVE mg/dL Bili (u) 05/05/23 04:04 NEGATIVE Ketones 05/05/23 04:04 NEGATIVE mg/dL SG 05/05/23 04:04 1.023 Hgb (u) 05/05/23 04:04 NEGATIVE pH (u) 05/05/23 04:04 7.0 unit Prot (u) 05/05/23 04:04 30 mg/dL Abnormal Urobili 05/05/23 04:04 0.1-1.0 EU/dL Nitrite (u) 05/05/23 04:04 NEGATIVE Leuk Est 05/05/23 04:04 TRACE Abnormal WBC (u) 05/05/23 04:04 10-19 /HPF RBC (u) 05/05/23 04:04 0-4 /HPF Bact (u) 05/05/23 04:04 FEW Abnormal Squamous Epithelial Cells (u) 05/05/23 04:04 NONE Mucous (u) 05/05/23 04:04 FEW Electronic Signature on File Electronically Reviewed/Signed by: Sandor Kennedy MD Author Signature Dt/Tm:05/05/2023 06:46 AM Resident Department of Emergency Medicine Electronically Reviewed/Signed by: Abena Prescott MD Cosigner Signature Dt/Tm: 05/06/2023 12:58 AM Department of Emergency Medicine APL Facility Discharge Instructions * MD Ayo, Valerie: MODIFY, MODIFY, MODIFY, MODIFY, PERFORM KAREY Tao, Valerie: MODIFY Event Display: Facility Discharge Instructions Authored Date: [id number] TRESSA RODRIGUEZ :1940 Visit Date:05/05/2023 Facility Discharge Instructions [facility] For medical concerns, call: . Date of Admission:05/05/2023 Date of Discharge:05/12/2023 Physician:MD Finesse, Mati Service:Internal Medicine Discharge Disposition: Primary Care Provider/Phone: LEIGHA SAUCEDA DO . Advance Directive:Unable to Obtain Information Reason for Hospitalization Delirium superimposed on dementia Acute on chronic intracranial subdural hematoma i/s/o fall historys/pright MMA embolization Your Diagnoses Delirium superimposed on dementia Acute on chronic intracranial subdural hematoma. Immunocompromised Polypharmacy My Health Patient Portal: [employer] makes it easy for you to manage your health information online. My [employer] is a free service that provides you instant, secure access to your medical information anytime, anywhere. Sign in or set up your account today at [email or web address] Thank you for allowing us to assist you with your healthcare needs. If you need additional community resources, [employer] can help at https://www.pa211.org. 211 can assist you in connecting with social programs based on your unique needs and locations. 211 is an anonymous search that can help you locate resources for: Food, Housing, Transportation, Goods, Education and Healthcare. Hospital Course Mr. 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 He was transferred to [facility] for neurosurgery evaluation of acute on chronic subdural hematoma and underwent right MMA embolization on 05/08 without complication. A decision was made to discontinue his aspirin indefinitely given fall history with complication of subdural hematoma development. His atorvastatin was also discontinued as it was deemed unnecessary in a patient of 82 years oldand contributes to polypharmacy. Superior endplate compression fracture of L1 and L2 was noted on x-ray but no operative intervention was planned this admission. The patient will follow up with Neurosurgery on an outpatient basis (their schedulers are working on finding him an appointment date and time and will call with this information. The patient'saltered mental status was deemed likelysecondary todelirium superimposed on underlying dementia. He is deemed to be back to his baseline level of function and is stable for discharge. Exam on Discharge Vitals & Measurements: T:37.1C TMIN:36.9C TMAX:37.3C HR:67(Monitored) RR:16 BP:143/77 SpO2:100% Oxygen Therapy:Room air Physical Exam: General:Alert, in no acute distress. Resting in bed. HEENT:Normocephalic, atraumatic. No scleral icterus. Pupils equal round, reactive bilaterally. Cardiac:Regular rate and rhythm, S1, S2, no S3 or S4. No murmurs/rubs/gallops appreciated. Lungs:Clear bilaterally without wheeze, rales or rhonchi. Abdomen:Soft, nontender, nondistended. Extremities:No edema bilaterally. Neuro:A&Ox1 (baseline). Bilateral upper extremity tremors. Skin:Warm, well perfused. No jaundice or rashes. Medications What How Much When Instructions Next Dose Unchanged mycophenolate mofetil (mycophenolate mofetil 250 mg oral capsule) 1 cap by mouth 2 times daily Duration: 90 Days 05/11 Unchanged amLODIPine (amLODIPine 5 mg oral tablet) 1 tab(s) by mouth Once daily 05/12 Unchanged brimonidine ophthalmic (brimonidine 0.2% ophthalmic solution) 1 Drops in both eyes At bedtime 05/11 Unchanged sertraline (sertraline 50 mg oral tablet) 1.5 tab(s) by mouth Once daily 05/12 Unchanged tacrolimus (tacrolimus (generic) 1 mg oral capsule) See instructions 2 capsules in the morning and 1 capsule in the evening 05/11 What How Much When Comments Stop Taking atorvastatin (atorvastatin 10 mg oral tablet) 1 tab(s) by mouth At bedtime Stop Taking sulfamethoxazole-trimethoprim (sulfamethoxazole-trimethoprim 800 mg- 160 mg oral tablet) 1 tab(s) by mouth 2 times daily Allergies NKA What to do next Instructions From Your Doctor You were admitted to [facility] for treatment ofacute on chronic subdural hematoma requiring right MMA embolization by Neurosurgery. Medications - Your medication list has been reviewed and reconciled upon discharge to ensure accuracy and continuity of care. - You are provided with a list of all your current medications at this time. Please review closely and make note of any changes. - Please take all of your medications exactly as prescribed. - Tell your primary care provider if you cannot afford your medications. - Call your primary care provider if you are having any side effects or any other problems. - Call your primary care provider before taking any over the counter medications or supplements, including herbals and vitamins, because some of these may interact with your current medications and/or make your symptoms worse. Follow-up Appointments 1) Please follow up with your primary care physician within 7 daysof your discharge. Please call their office to schedule your appointment. A discharge summary will be sent to your primary care physician to ensure continuity of care. Please bring this discharge summary with you to your next office appointment so that your provider can review it at that time. 2)Our Neurosurgery Departmentis setting up a follow-up appointment on an outpatient basisin ~4 weeks from your discharge date from the hospital to ensure that you are still doing wellfollowing the right MMA embolization they performedwhile you were admitted. You will receive a call fromtheir schedulers with the date and time of this appointment.In the rare event you do not hearfrom their schedulers within 3 business days, please call the [facility] Operatorat [phone] and ask to be connected to Neurosurgeryoutpatient appointment scheduling team to ensure this follow up has been scheduled and you are aware of the date and time. If you notice the following symptoms Please call your primary care provider for symptoms including, but not limited to: fevers (temperatures >100.4 degrees F or 38.1 degrees C), chills, intractable nausea or vomiting, diarrhea, rash,shortness of breath, bleeding, pain, or if you experience any worsening of the symptoms that brought you to the hospital. In particular, please be cautious forworsening lethargy, increased confusion, or any change in neurologic function. ForEMERGENCYandVERY SERIOUShealth-related issues, such as chest pain, shortness of breath, or sudden onset of the symptoms that brought you to the hospital, you may need to [id number] go directly to theEmergency Room. Contact our Careline at . If unable to contact your physician and you feel it is an emergency, go to the nearest Emergency Room or call 911 Diet Instructions Speech Therapy Recommendations: Regular solids Thin liquid Swallow Precautions:--Assist with tray set up as needed--Small bites/sips--Pills one at a time Activity Instructions Physical Therapy: Weight bearing as tolerated (bilateralLEs) Resume normal activity as tolerated. Follow-Up Appointments Scheduled Follow-Up Appointments 1) Please follow up with your primary care physician within 7 daysof your discharge. Please call their office to schedule your appointment. A discharge summary will be sent to your primary care physician to ensure continuity of care. Please bring this discharge summary with you to your next office appointment so that your provider can review it at that time. 2)Our Neurosurgery Departmentis setting up a follow-up appointment on an outpatient basisin ~4 weeks from your discharge date from the hospital to ensure that you are still doing wellfollowing the right MMA embolization they performedwhile you were admitted. You will receive a call fromtheir schedulers with the date and time of this appointment.In the rare event you do not hearfrom their schedulers within 3 business days, please call the [facility] Operatorat [phone] and ask to be connected to Neurosurgeryoutpatient appointment scheduling team to ensure this follow up has been scheduled and you are aware of the date and time. The Following Services Have Been Arranged for You Service: Organization: Business Address: Phone Number: [facility] AND [address] , [place], [address] Tests Pending None Procedures Performed MMA embo Right sided 05/09/2023 Nursing Assessment Lopez: Indwelling Insert Date:05/05/23 14:20 (No insertion activity documented) Removal Date:No Removal Currently Documented. SPECIAL NEEDS: Sensory Deficits: None Level of Consciousness Neuro: Alert Neurological Symptoms: Confusion/Disorientation, Weakness ADLS: Moderate assistance Last BM: 05/11/2023 Basic Skin Assessment: [place], Pale, Warm, Dry Special Instructions Common Emergency Awareness Tips Call 911 immediately if: experiencing any of the warning signs and symptoms of stroke: B.E. F.A.S.T. Balance: is there trouble with walking or coordination Eyes: is there double vision or visual loss Face: Smile, do both sides of face move equally Arm: Raise arms, do both arms move equally Speech: Is speech slurred or inappropriate Time: Time is critical, call 911 immediately Heart Attack Signs Chest discomfort: Most heart attacks involve discomfort in the center of the chest and lasts more than a few minutes, or goes away and comes back. It can feel like uncomfortable pressure, squeezing, fullness or pain. Discomfort in upper body: Symptoms can include pain or discomfort in one or both arms, back, neck, jaw or stomach. Shortness of breath: With or without discomfort. Other signs: Breaking out in a cold sweat, nausea, or lightheaded. Remember, MINUTES DO MATTER. If you experience any of these heart attack warning signs, call to get immediate medical attention! Education Materials Subdural Hematoma A subdural hematoma is a collection of blood between the brain and its outer covering (dura). As the amount of blood increases, pressure builds on the brain. There are two types of subdural hematomas: Acute. This type develops shortly after a hard, direct hit to the head and causes blood to collect very quickly. This is a medical emergency. If it is not diagnosed and treated quickly, it can lead to severe brain injury or . Chronic. This is when bleeding develops more slowly, over weeks or months. In some cases, this typedoes not cause symptoms. What are the causes? This condition is caused by bleeding from a broken blood vessel (hemorrhage). In most cases, this is because of a head injury, such as from a hard, direct hit. Head injuries can be caused by: Motor vehicle accidents. Falls. Assaults. Sports injuries. In rare cases, a hemorrhage can happen without a known cause, especially if you take blood thinners(anticoagulants). What increases the risk? This condition is more likely to develop in: Older people. Infants. People who take blood thinners. People who have head injuries. People who abuse alcohol. What are the signs or symptoms? Symptoms of this condition can be mild, severe, or life-threatening, depending on the size of the hematoma. Symptoms of this condition include: Headache. Nausea or vomiting. Changes in vision, such as double vision or loss of vision. Changes in speech or trouble understanding what people say. Loss of balance or trouble walking. Weakness, numbness, or tingling in the arms or legs, especially on one side of the body. Seizures. Change in personality. Increased sleepiness. Memory loss. Loss of consciousness. Coma. Symptoms of acute subdural hematoma can develop over minutes or hours. Symptoms of chronic subduralhematoma may develop over weeks or months. How is this diagnosed? This condition is diagnosed based on: A physical exam. Tests of strength, reflexes, coordination, senses, manner of walking, and facial and eye movements (neurological exam). Imaging tests, such as an MRI or CT scan. How is this treated? Treatment for this condition depends on the type of hematoma and how severe it is. Treatment for acute hematoma may include: Emergency surgery to drain blood or remove a blood clot. Medicines that help the body get rid of excess fluids (diuretics). These may help reduce pressure in the brain. Assisted breathing (ventilation). Treatment for chronic hematoma may include: Observation and bed rest at the hospital. Surgery. If you take blood thinners, you may need to stop taking them for a short time. You may also be given anti-seizure medicine. Sometimes, no treatment is needed for chronic hematoma. Follow these instructions at home: Activity Avoid situations where you could injure your head again, such as competitive sports, downhill snow sports, and horseback riding. Do not do these activities until your health care provider approves. Wear protective gear, such as a helmet, when participating in activities such as biking or contact sports. Always wear your seat belt when you are in a motor vehicle. Rest as told by your health care provider. Rest helps the brain heal. You may have to avoid lifting. Ask your health care provider how much you can safely lift. Do not drive, ride a bike, or use machinery until your health care provider says that it is safe. Avoid too much visual stimulation while recovering. This includes working on the computer, watchingTV, and reading. Try to avoid activities that cause physical or mental stress. Return to your normal activities as told by your health care provider. Ask your health care provider what activities are safe for you. Alcohol use Do not drink alcohol if: Your health care provider tells you not to drink. You are , may be , or are planning to become . If you drink alcohol: Limit how much you have to: 01 drink a day for women. 02 drinks a day for men. Know how much alcohol is in your drink. In the [place] one drink equals one 12 oz bottle of beer (355mL), one 5 oz glass of wine (148 mL), or one 1 oz glass of hard liquor (44 mL). General instructions Watch your symptoms and ask others to do the same. Recovery from brain injuries varies. Talk with your health care provider about what to expect. Take ofwr-grh-ehmzucl and prescription medicines only as told by your health care provider. Do not take blood thinners or NSAIDs unless your health care provider approves. These include aspirin, ibuprofen, naproxen, and warfarin. Keep your home environment safe to reduce the risk of falling. Keep all follow-up visits. Your health care team may need to watch you over time to check for serious changes in your condition. Where to find more information Brain Injury Association of [place]: www.biausa.org Brain Trauma Foundation: www.braintrauma.org Get help right away if: You are taking blood thinners or have a bleeding disorder and fall or experience minor trauma to the head. If you take blood thinners, even a small injury can cause a subdural hematoma. You develop any of these symptoms after a head injury: Clear fluid draining from your nose or ears. Nausea or vomiting. Changes in speech or trouble understanding what people say. Seizures. Sleepiness or a decrease in alertness. Double vision. Numbness or inability to move in any part of your body. Difficulty walking or poor coordination. Difficulty thinking. Confusion or forgetfulness. Personality changes. Irrational or aggressive behavior. These symptoms may be an emergency. Get help right away. Call 911. Do not wait to see if the symptoms will go away. Do not drive yourself to the hospital. Summary A subdural hematoma is a collection of blood between the brain and its outer covering (dura). Treatment for this condition depends on the type of subdural hematoma and how severe it is. Symptoms can vary from mild to severe to life-threatening. Watch your symptoms and ask others to do the same. This information is not intended to replace advice given to you by your health care provider. Make sure you discuss any questions you have with your health care provider. Document Revised: 05/09/2022 Document Reviewed: 05/09/2022 IDbyME Patient Education 2022 [employer]. Patient Care team information Care Team Personnel Name: MD Lizzette, Johnny Position: Physician - Hem/Onc Member Role: Lifetime - never expires Address: Address: [address] [place] [address] [place] Name: KAREY Chavez Michelle Position: RN - Outpt Schedule III Member Role: Lifetime - never expires Name: Jaskaran Muñoz Chrissy Position: Pharmacist Member Role: Pharmacy - Lifetime Address: Address: [facility] [address] [place] [address] [place] Name: HARRIETT Munroe Bridget M Position: Physician Commercial Retoucher - Vascular Surg Member Role: Lifetime - never expires Address: Address: [address] [place] [address] [address] [place] [address] [place] Name: KAREY Flores Jennifer L Position: RN - Transplant Coord Member Role: Lifetime - never expires Address: Address: [facility] [address] [place] [address] [place] Name: Jaskaran Greene Kyle Position: Pharmacist Member Role: Pharmacy - Lifetime Address: Address: [address] [place] [address] [place] Name: Jaskaran Gonzalez Tracy M Position: Pharmacist Member Role: Lifetime - never expires Address: Address: [address] [address] [place] Name: R.E.S. Not Needed Position: Resident Name: MD Tucker, Susan Position: Physician - Hospitalist Med Member Role: Consulting (5 day after disch/visit) Address: Address: [address] [place] [address] Care Team Related Persons Name: ABENA RODRIGUEZ Name: LETICIA RODRIGUEZ Address: home [address] [place], [place] [id number]
--- OUTSIDE RECORDS SUMMARY | 2023-05-21 18:16 | External Medical Summary | Summary of Care ---
Author Name Unknown Organization [facility] Address [address] [facility] [place] [address] Phone [phone] Care Team Providers Care Caisson Worker Name Role Phone Lydia Dobbs MD Primary Care Provide r Reason for Visit * Reason Onset Date Comments Shelter Visit - Admission 05/12/2023 Encounter Details Date Type Department Care Team (Latest Contact Info) Description 05/12/2023 3:00 PM EDT Shelter Visit [address] [place] [address] Sergio Cesar MD [address] [place] [address] [place] [id number] Chronic subdural hematoma (HCC)*; S/p cadaver renal transplant; ADPKD (autosomal dominant polycystic kidney disease); Recurrent UTI; A-V fistula (HCC); Immunosuppression (HCC); BPH with obstruction/lower urinary tract symptoms; Chronic indwelling Lopez catheter; Stage 3b chronic kidney disease (HCC); Compression fracture of L2 vertebra with routine healing, subsequent encounter; Compression fracture of L1 vertebra with routine healing, subsequent encounter; MCI (mild cognitive impairment); Aspirin contraindicated; Hypertension goal BP (blood pressure) < 140/90; MRSA carrier Allergies Active Allergy Reactions Criticality Noted Date Comments Lisinopril 05/11/2010 cough documented as of this encounter (statuses as of 05/12/2023) Medications Medication Sig Dispensed Refills Start Date End Date Status amLODIPine Besylate 5 MG Oral Tablet (Norvasc)Indicatio ns:Hypertension goal BP (blood pressure) < 140/90 Take 1 Tablet by mouth in the morning. 30 Tablet 0 02/28/2023 Active Brimonidine Tartrate 0.2 % Ophthalmic Solution (Alphagan)Indicati ons:Bilateral ocular hypertension Instill 1 Drop into both eyes at bedtime. 5 mL 0 02/28/2023 Active Calcium 500 MG Oral Tablet Take 1 Tablet by mouth in the morning and 1 Tablet before bedtime. 60 Tablet 0 02/28/2023 Active Vitamin D (Cholecalciferol) 10 MCG (400 UNIT) Oral Capsule Take 1 Capsule by mouth in the morning. 30 Capsule 0 02/28/2023 Active Mycophenolate Mofetil 250 MG Oral Capsule (CellCept)Indicati ons:ADPKD (autosomal dominant polycystic kidney disease),S/p cadaver renal transplant Take 1 Capsule by mouth in the morning and 1 Capsule before bedtime. 60 Capsule 0 02/28/2023 Active Sertraline HCl 50 MG Oral Tablet (Zoloft)Indication s:Depression, unspecified depression type Take 1 Tablet by mouth in the morning. 30 Tablet 0 02/28/2023 Active Chlorhexidine Gluconate 4 % External Liquid (Hibiclens) Use as body wash from neck down at least 3 times weekly (do not get in eyes or ears) 120 mL 5 03/13/2023 Active Magnesium 400 MG Oral Tablet Take 400 mg by mouth every night at bedtime. 0 05/12/2023 Active Tacrolimus 1 MG Oral Capsule (Prograf)Indicatio ns:ADPKD (autosomal dominant polycystic kidney disease),S/p cadaver renal transplant Take 2 capsules in the morning and 1 capsule in the evening 90 Capsule 0 05/12/2023 Active Methenamine Hippurate 1 GM Oral Tablet (Hiprex)Indication s:Recurrent UTI Take 1 Tablet by mouth in the morning and 1 Tablet before bedtime. 0 05/12/2023 Active Aspirin 81 MG Oral Tablet Chewable Take 1 Tablet by mouth in the morning. With food.. 30 Tablet 0 02/28/2023 Discontinued Atorvastatin Calcium 10 MG Oral Tablet (Lipitor)Indicatio ns:Dyslipidemia, goal to be determined Take 1 Tablet by mouth in the morning. 30 Tablet 0 02/28/2023 4 Discontinued Magnesium 400 MG Oral Tablet Take 400 mg by mouth every night at bedtime. 30 Tablet 0 02/28/2023 4 Discontinued Methenamine Hippurate 1 GM Oral Tablet (Hiprex)Indication s:Recurrent UTI Take 1 Tablet by mouth in the morning and 1 Tablet before bedtime. 60 Tablet 0 02/28/2023 4 Discontinued Multivitamin Adult Oral Tablet Take 1 Tablet by mouth every night at bedtime. 30 Tablet 0 02/28/2023 4 Discontinued Fish Oil 1000 MG Oral Capsule Take 1 Capsule by mouth in the morning. 30 Capsule 0 02/28/2023 4 Discontinued Potassium Chloride ER 10 MEQ Oral Capsule Extended Release Take 1 Capsule by mouth in the morning. 30 Capsule 0 02/28/2023 4 Discontinued Tacrolimus 1 MG Oral Capsule (Prograf)Indicatio ns:ADPKD (autosomal dominant polycystic kidney disease),S/p cadaver renal transplant Take 1 Capsule by mouth in the morning and 1 Capsule before bedtime. 60 Capsule 0 02/28/2023 4 Discontinued Mupirocin 2 % External Ointment (Bactroban) Apply topically to affected area 3 times a day. Apply inside nares twice daily for at least 4 weeks 22 g 3 03/13/2023 4 Discontinued documented as of this encounter (statuses as of 05/12/2023) Active Problems Problem Noted Date Diagnosed Date Immunosuppression 05/12/2023 Recurrent UTI 05/12/2023 BPH with obstruction/lower urinary tract symptom s 05/12/2023 Stage 3b chronic kidney disease 05/12/2023 Aspirin contraindicated 05/12/2023 Compression fracture of L2 lumbar vertebra 05/11 Compression fracture of L1 lumbar vertebra 05/11 S/p cadaver renal transplant 02/09/2023 Chronic subdural hematoma 02/09/2023 DUSTY (obstructive sleep apnea) 02/09/2023 Chronic indwelling Lopez catheter 02/09/2023 Hypertension goal BP (blood pressure) < 140/90 1 04/12/2022 MCI (mild cognitive impairment) 02/09/2023 MRSA carrier 02/09/2023 Renal lesion 02/09/2023 ADPKD (autosomal dominant polycystic kidney dise ase) 02/09/2023 A-V fistula 02/09/2023 History of nonmelanoma skin cancer 03/21/2017 Overview: Hx of SCC on scalp - 2016 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 advent - 2016 Hx of BCC on right postauricular area - 2016 Hx of SCC on crown of scalp posterior - 2015 Hx of SCC in situ on crown of scalp anterior - 2015 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 - 2014 Hx of SCC on right crown of scalp - 2013 Hx of BCC on nose - 2013 Hx of SCC on vertex of scalp - 2013 Hx of SCC in situ on left forearm x 2 - 2013 Hx of SCC in situ on scalp - 2010 History of Mohs surgery for squamous cell carcinoma in situ of skin 09/11/2012 Diffuse photodamage of skin 09/11/2012 Seborrheic dermatitis 05/22/2012 Overview: ICD-10 update of inactive term Actinic keratosis 05/22/2012 documented as of this encounter (statuses as of 05/12/2023) Resolved Problems Problem Noted Date Diagnosed Date Resolved Date Neoplasm of uncertain behavior of skin 03/18/2013 03/21/2017 History of squamous cell carcinoma 03/18/2013 03/21/2017 Other seborrheic keratosis 09/11/2012 0 03/21/2017 documented as of this encounter (statuses as of 05/12/2023) Immunizations Name Administration Dates Next Due Seasonal Influenza, Split, IIV3, With Preserve, Inj 11/30/2013 TDAP (age 10 and older)(Boostrix) 01/30/2023 documented as of this encounter Social History Tobacco Use Types Packs/Day Years Used Date Smoking Tobacco: Never Smokeless Tobacco: Never Alcohol Use Standard Drinks/Week Comments Not Currently 0 (1 standard drink = 0.6 oz pur e alcohol) rare Sex and Gender Information Value Date Recorded Sex Assigned at Not on file Gender Identity Not on file Sexual Orientation Not on file Job Start Date Occupation Industry Not on file Not on file Not on file documented as of this encounter Progress Notes * Sergio Cesar MD - 05/12/2023 3:57 PM EDT ADMISSION HISTORY and PHYSICAL TRANSITION EVENT: Type: SNF admission Date: May 11 Code Status: Full Code Name: Kevin Marie Date of : 1940 This note [place] [facility] Please see facility medical record for original note. This note is not to be edited or addended in [facility]. Editing or addending needs to occur in the facilities medical record. S: Kevin Marie had been admitted to [facility] from [facility] for PT and OT. Recently admitted to [facility] because of acute on chronic subdural hematoma and was transferred here and admitted on 05/12/2023. Patient who is a resident of [facility] and known to this facility from recent rehab stay with PMH of polycystic kidney disease s/p cadaver renal transplant, stage 3b CKD, AV fistula in place not currently in use, BPH w/obstruction and chronic indwelling Lopez, h/o SDH, DUSTY, hypertension, mild cognitive impairment, recurrent UTI on suppression, and immunosuppressant medication use who presented to the ED with increased confusion and more falls over the last few weeks. Patient apparently was also on Bactrim for a UTI and methenamine was on hold while being treated for UTI. He was found to have acute on chronic SDH and transferred to [place] for furtherevaluation and management. He was admitted to [facility] on 05/05/23 and underwent right MMA embolization on 05/09/23 without complications. His aspirin was discontinued indefinitely given fall risk with h/o SDH. His atorvastatin asalso discontinued as deemed unnecessary due to age and polypharmacy. He was also note to have superior end plate L1 and L2 compression fractures on imaging but no intervention deemed necessary. He is to follow-up with neurosurgery as an outpatient. Patient's delirium improved prior to discharge. He is now admitted for PT/OT with plans to return to [facility] if possible. Patient recalls being in the hospital but is not sure of the details. He denies any headaches. He states he got a bruise of his abdomen during a fall that hurts but denies any other pain. Appetite is good per patient. Is on pureed diet. He denies any cough or shortness of breath. Past Medical History: Patient Active Problem List Diagnosis Code Seborrheic dermatitis L21.9 Actinic keratosis L57.0 History of Mohs surgery for squamous cell carcinoma in situ of skin Z98.890, Z86.007 Diffuse photodamage of skin L57.8 History of nonmelanoma skin cancer Z85.828 S/p cadaver renal transplant Z94.0 Chronic subdural hematoma (HCC) I62.03 DUSTY (obstructive sleep apnea) G47.33 Chronic indwelling Lopez catheter Z97.8 Hypertension goal BP (blood pressure) < 140/90 I10 MCI (mild cognitive impairment) G31.84 MRSA carrier Z22.322 Renal lesion N28.9 ADPKD (autosomal dominant polycystic kidney disease) Q61.2 A-V fistula (HCC) I77.0 Immunosuppression (HCC) D84.9 Recurrent UTI N39.0 BPH with obstruction/lower urinary tract symptoms N40.1, N13.8 Stage 3b chronic kidney disease (HCC) N18.32 Aspirin contraindicated Z53.09 Compression fracture of L2 lumbar vertebra (HCC) S32.020A Compression fracture of L1 lumbar vertebra (HCC) S32.010A Current Outpatient Medications Medication Sig Dispense Refill Magnesium 400 MG Oral Tablet Take 400 mg by mouth every night at bedtime. Tacrolimus 1 MG Oral Capsule (Prograf) Take 2 capsules in the morning and 1 capsule in the evening 90 Capsule Methenamine Hippurate 1 GM Oral Tablet (Hiprex) Take 1 Tablet by mouth in the morning and 1 Tablet before bedtime. amLODIPine Besylate 5 MG Oral Tablet (Norvasc) Take 1 Tablet by mouth in the morning. 30 Tablet 0 Brimonidine Tartrate 0.2 % Ophthalmic Solution (Alphagan) Instill 1 Drop into both eyes at bedtime.5 mL 0 Calcium 500 MG Oral Tablet Take 1 Tablet by mouth in the morning and 1 Tablet before bedtime. 60 Tablet 0 Vitamin D (Cholecalciferol) 10 MCG (400 UNIT) Oral Capsule Take 1 Capsule by mouth in the morning. 30 Capsule 0 Mycophenolate Mofetil 250 MG Oral Capsule (CellCept) Take 1 Capsule by mouth in the morning and 1 Capsule before bedtime. 60 Capsule 0 Sertraline HCl 50 MG Oral Tablet (Zoloft) Take 1 Tablet by mouth in the morning. 30 Tablet 0 Chlorhexidine Gluconate 4 % External Liquid (Hibiclens) Use as body wash from neck down at least 3 times weekly (do not get in eyes or ears) 120 mL 5 No current facility-administered medications for this visit. Review of patient's allergies indicates: Allergen Reactions Lisinopril cough Social History Tobacco Use Smoking status: Never Smokeless tobacco: Never Substance Use Topics Alcohol use: Not Currently Comment: rare Vaping/E-Cigarette Use Vaping/E-Cigarette Substances Vaping/E-Cigarette Devices Past Surgical History: Procedure Laterality Date [place] ANESTH,KIDNEY TRANSPLANT 2006 [place] HEMODIAL VIA FUNCTIONG AV FISTULA Left 2006 left upper extremity [place] LAP,INGUINAL HERNIA REPR,INITIAL Right REMOVAL OF PROSTATE (TURP) No family history on file. No family status information on file. Review of Systems: Constitutional ROS: No change in weight, No fevers, sweats, or chills, and +generalized weakness Eye ROS: No recent significant change in vision and No eye pain, redness, discharge Ear ROS: No ear pain, No drainage, No tinnitus or vertigo, and No recent change in hearing Nose ROS: No history of frequent colds or sinusitis, No nasal stuffiness, No history of Hay Fever, and No significant epistaxis Mouth/Throat ROS: No bleeding gums, No thrush, or No sore throat Pulmonary ROS: No cough, sputum, or hemoptysis, No wheezing, No shortness of breath, and No recent change in breathing Cardiovascular ROS: No chest pain, No shortness of breath, No orthopnea, No paroxysmal nocturnal dyspnea, No edema, No palpitations, and No syncope Gastrointestinal ROS: No abdominal pain, No change in bowel habits, No significant heartburn, No significant change in appetite, No nausea, vomiting, diarrhea, or constipation, No hematemesis, No blood in stools or black tarry stools, No abdominal bloating or early satiety, and +dysphagia Genito-Urinary Male ROS: +BPH with obstruction and chronic Lopez Musculoskeletal/Extremities ROS: as per HPI Hematologic/Lymphatic ROS: No coagulation disorder, No abnormal bleeding, No chills, +immunosuppressed Skin/Integumentary ROS: No rash Neurologic ROS: No headaches, No seizures, and +chronic SDH and cognitive impairment Endocrine ROS: No heat intolerance, No cold intolerance, No thyroid trouble, No excessive thirst orurination, and No history of diabetes Psychiatric ROS: No psychosis and +depression ADL skills: dependent Ambulates with walker OBJECTIVE: PHYSICAL EXAM: I reviewed the most recent facilities vitals. Refer to vital signs flowsheet in fdc chart.General: alert, no distress, and thin elderly chronically ill appearing male Head: Normocephalic, No masses, lesions, tenderness or abnormalities Eye Exam: PERRLA, extraocular movements intact, conjunctiva are pink and non- injected, sclera clear Ears: External ears normal Nose: no mucosal erythema, no mucosal edema, no purulent discharge Oropharynx: no exudate, no erythema, lips, buccal mucosa, and tongue normal, and mucous membranes are moist Neck: supple, no adenopathy, no bruits Heart: regular rate & rhythm, no murmur, and no gallops Lungs: chest symmetric with normal AP diameter, no chest deformities noted, no chest wall tenderness, lungs clear to auscultation Abdomen: abdomen soft, non-tender, normal bowel sounds, and no masses or organomegaly Extremities: no edema, no clubbing, no cyanosis Neuro Exam: no focal motor/sensory deficits, alert and oriented to person and place. Somewhat slow to respond to questions and poor short term memory ASSESSMENT: Chronic subdural hematoma (HCC) (Primary)--s/p right MMA embolization at [place]. Follow-up with neurosurgery as directed S/p cadaver renal transplant--continue Tacrolimus and mycophenolate. ADPKD (autosomal dominant polycystic kidney disease)--s/p cadaver transplant as above Recurrent UTI--restart methenamine hippurate as per home dose. A-V fistula ([facility])--stable Immunosuppression ([facility]) BPH with obstruction/lower urinary tract symptoms--continue Lopez Chronic indwelling Lopez catheter Stage 3b chronic kidney disease ([facility])--check follow-up BMP and CBC Compression fracture of L2 vertebra with routine healing, subsequent encounter--not currently having back pain Compression fracture of L1 vertebra with routine healing, subsequent encounter--not currently having back pain MCI (mild cognitive impairment) Aspirin contraindicated Hypertension goal BP (blood pressure) < 140/90 MRSA carrier PLAN: 1. Continue present medication(s): Begin medication(s): Restart magnesium 400 mg at bedtime, calcium 500 mg twice daily, and methenamine hippurate 1 gm twice daily as per home medication list. Appears [facility] did not have his most up to date list. Referral(s) to: Neurosurgery for follow-up of SDH Schedule labs: CBC and BMP 05/15/23 2. Admission orders, medications, labs, hospital records and care plan reviewed. 3. Outside [employer] consult, Physical Therapy, Occupational Therapy, and Speech Therapy ordered. 4. Care plan reviewed. 5. Advance Directives were discussed: Full Code 6. Senior Care Home Treatment Given: n/a Electronically signed by: Sergio Cesar MD I spent a total of 53 minutes coordinating, documenting, and providing care for this patient excluding time spent in the performance of separately billed services or time spent by another provider/QHP. documented in this encounter Plan of Treatment Upcoming Encounters Date Type Department Care Team (Late st Contact Info) Description 08/04/2023 3:00 PM EDT Office Visit [facility] [address] [place], [place] [id number] Teresa Bowles MD [address] [place] [id number] Health Maintenance Due Date Last Done Comments Depression Screening 1952 Albumin/Creatinine Ratio 1960 COVID-19 Vaccine (2022- season) 2022 08/24/2022, 08/24/2022, 12/14/2021, Additional history exists Influenza Vaccine (FLU shot) (#1) 2022 11/17/2019, 12/17/2018, 11/30/2013 GFR 05/03/2024 05/04/2023, 03/30, 02/13/2023, Additional history exists DTaP,Tdap,and Td Vaccines (2 - Td or Tdap) 01/30/2033 01/30/2023, 01/30/2023 Zoster Vaccines Completed 03/20/2019, 09/28, 10/24/2018 Pneumococcal Vaccine: 65+ Years Completed 04/12/2021, 12/11/2014, 12/09/2014 GARDASIL-HPV IMMUNIZATION SERIES Aged Out No longer eligible based on patient's age to complete this topic Hepatitis B Aged Out No longer eligi ble based on patient's age to complete this topic MENINGOCOCCAL (MENACTRA/MENVEO) Aged Out No longer eligible based on patient's age to complete this topic documented as of this encounter Medical Devices Not on filedocumented as of this encounter Visit Diagnoses Diagnosis Chronic subdural hematoma (HCC)- Primary Subdural hemorrhage S/p cadaver renal transplant Kidney replaced by transplant ADPKD (autosomal dominant polycystic kidney disease) Polycystic kidney, autosomal dominant Recurrent UTI Urinary tract infection, site not specified A-V fistula (HCC) Arteriovenous fistula, acquired Immunosuppression (HCC) Unspecified disorder of immune mechanism BPH with obstruction/lower urinary tract symptoms Hypertrophy of prostate with urinary obstruction and other lower urinary tract symptoms (LUTS) Chronic indwelling Lopez catheter Other postprocedural status Stage 3b chronic kidney disease (HCC) Compression fracture of L2 vertebra with routine healing, subsequent encounter Compression fracture of L1 vertebra with routine healing, subsequent encounter MCI (mild cognitive impairment) Mild cognitive impairment, so stated Aspirin contraindicated Surgical or other procedure not carried out because of contraindication Hypertension goal BP (blood pressure) < 140/90 Unspecified essential hypertension MRSA carrier Carrier or suspected carrier of Methicillin resistant Staphylococcus aureus documented in this encounter Additional Health Concerns Infection Onset Date Last Indicated Resolved Time MRSA 04/10/2023 04/10/2023 documented as of this encounter Care Teams Caisson Worker Relationship Specialty Start Date End Date Lydia Dobbs MD [address] [place] [address] PCP - General Internal Medicine 02/06/23 documented as of this encounter
--- OUTSIDE RECORDS SUMMARY | 2023-05-21 18:16 | External Medical Summary ---
Author Name Unknown Address Unknown Organization [id number][facility] [address] [facility] [address] [place] [id number] Laboratory Report Ordering Provider Test Date Status LOLLY CASILLAS 05/15/2023 06:07:00 Final Observation Date Value Abnormality Reference (Units ) Status BUN 05/15/2023 06:07:00 15 6-20 (mg/dL) Final Creatinine 05/15/2023 06:07:00 1.4 Above high normal 0.6-1.2 (mg/dL) Final Glomerular filtration rate/1.73 sq M.predicted [Volume Rate/Area] in Serum, Plasma or Blood by Creatinine-based formula (CKD-EPI) 05/15/2023 06:07:00 53 Below low normal >=60 (mL/min) Final eGFR is calculated based on the CKD-EPI 2020 equation SODIUM 05/15/2023 06:07:00 138 135-146 (m mol/L) Final Potassium 05/15/2023 06:07:00 4.6 3.5-5.1 (m mol/L) Final Cl 05/15/2023 06:07:00 104 98-107 (mm ol/L) Final CO2 05/15/2023 06:07:00 26 22-32 (mmo l/L) Final Anion gap 05/15/2023 06:07:00 8 7-15 (mmol /L) Final Glucose 05/15/2023 06:07:00 85 70-120 (mg /dL) Final Calcium 05/15/2023 06:07:00 8.8 8.4-10.2 ( mg/dL) Final Performing Location LABORATORY [facility] [place] [address] [place] [id number]
--- OUTSIDE RECORDS SUMMARY | 2023-05-21 18:16 | External Medical Summary | Summary of Care ---
Author Name Unknown Organization [facility] Address [address] [facility] [place] [address] Phone [phone] Care Team Providers Care Buff Wheel Fabricator Name Role Phone Lydia Dobbs MD Primary Care Provide r Reason for Visit * Reason Onset Date Comments Skilled Visit 05/17/2023 Encounter Details Date Type Department Care Team (Late st Contact Info) Description 05/17/2023 10:30 AM EDT Custodial Visit [facility], [address] [place] [address] Arlen Canales PA-C [address] [place] [address] Chronic subdural hematoma (HCC)*; Personal history of fall Allergies Active Allergy Reactions Criticality Noted Date Comments Lisinopril 05/11/2010 cough documented as of this encounter (statuses as of 05/17/2023) Medications Medication Sig Dispensed Refills Start Date End Date Status amLODIPine Besylate 5 MG Oral Tablet (Norvasc)Indications: Hypertension goal BP (blood pressure) < 140/90 Take 1 Tablet by mouth in the morning. 30 Tablet 0 02/28/2023 Active Brimonidine Tartrate 0.2 % Ophthalmic Solution (Alphagan)Indications :Bilateral ocular hypertension Instill 1 Drop into both [...] Active Mycophenolate Mofetil 250 MG Oral Capsule (CellCept)Indications :ADPKD (autosomal dominant polycystic kidney disease),S/p cadaver renal transplant Take 1 Capsule by mouth in the morning and 1 Capsule before bedtime. 60 Capsule 0 02/28/2023 Active Sertraline HCl 50 MG Oral Tablet (Zoloft)Indications:D epression, unspecified depression type Take 1 Tablet by [...] 05/12/2023 Active Tacrolimus 1 MG Oral Capsule (Prograf)Indications: ADPKD (autosomal dominant polycystic kidney disease),S/p cadaver renal transplant Take 2 capsules in the morning and 1 capsule in the evening 90 Capsule 0 05/12/2023 Active Methenamine Hippurate 1 GM Oral Tablet (Hiprex)Indications:R ecurrent UTI Take 1 Tablet by mouth in the morning and 1 Tablet before bedtime. 0 05/12/2023 Active documented as of this encounter (statuses as of 05/17/2023) Active Problems Problem Noted Date Diagnosed Date Immunosuppression 05/12/2023 Recurrent UTI 05/12/2023 BPH with obstruction/lower urinary tract symptom s 05/12/2023 Stage 3b chronic kidney disease 05/12/2023 Aspirin contraindicated 05/12/2023 Compression fracture of L2 lumbar vertebra 05/11 Compression fracture of L1 lumbar vertebra 05/11 S/p cadaver renal transplant 02/09/2023 Chronic subdural hematoma 02/09/2023 DUSTY (obstructive sleep apnea) 02/09/2023 Chronic indwelling Sherwood catheter 02/09/2023 Hypertension goal BP (blood pressure) < 140/90 1 04/12/2022 MCI (mild cognitive impairment) 02/09/2023 MRSA carrier 02/09/2023 Renal lesion 02/09/2023 ADPKD (autosomal dominant polycystic kidney dise ase) 02/09/2023 A-V fistula 02/09/2023 History of nonmelanoma skin cancer 03/21/2017 Overview: Hx of SCC on scalp - 2016 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 - 2016 Hx of BCC on right [...] as of this encounter (statuses as of 05/17/2023) Resolved Problems Problem Noted Date Diagnosed Date Resolved Date Neoplasm of uncertain behavior of skin 03/18/2013 03/21/2017 History of squamous cell carcinoma 03/18/2013 03/21/2017 Other seborrheic keratosis 09/11/2012 0 03/21/2017 documented as of this encounter (statuses as of 05/17/2023) Immunizations Name Administration Dates Next Due Seasonal [...] on file documented as of this encounter Last Filed Vital Signs Vital Sign Reading Time Taken Comments Blood Pressure 118/64 05/17/2023 3:36 PM EDT Pulse 78 05/17/2023 3:36 PM EDT Temperature 36.8 C (98.2 F) 05/17/2023 3:36 PM ED T Respiratory Rate 17 05/17/2023 3:36 PM EDT Oxygen Saturation 95% 05/17/2023 3:36 PM EDT room air Inhaled Oxygen Concentration - - Weight - - Height - - Body Mass Index - - documented in this encounter Progress Notes * Arlen Canales PA-C - 05/17/2023 10:30 AM EDT Name: Kevin Marie Date of : 1940 This note pertains to care provided at [facility]. Please see facility record for original note. This note is not to be edited or addended in [facility]. Editing or addending needs to occur in the facility's medical record. Chief Complaint Patient presents with Skilled Visit TRANSITION EVENT: Type: Skilled visit Date: May 16 Code Status: Full Code SUBJECTIVE: Kevin Marie is a 82 year old male HPI: short-term rehab pt recently hospitalized at [facility] with acute on chronic subdural hematoma, managed with middle meningeal artery embolization, with underlying history of polycystic kidney disease s/p renal transplant, recurrent UTI, cognitive impairment, and other history as noted below. He denies headache, dizziness, chest pian, dyspnea, cough, fever, chills, abdominal pain, nausea, vomiting, diarrhea, vision changes. He is up and ambulating with therapy with a walker. PMH: Patient Active Problem List Diagnosis Code Seborrheic dermatitis L21.9 Actinic keratosis L57.0 History of Mohs surgery for squamous cell carcinoma in situ of skin Z98.890, Z86.007 Diffuse photodamage of skin L57.8 History of nonmelanoma skin cancer Z85.828 S/p cadaver renal transplant Z94.0 Chronic subdural hematoma (HCC) I62.03 DUSTY (obstructive sleep apnea) G47.33 Chronic indwelling Sherwood catheter Z97.8 Hypertension goal BP (blood pressure) < 140/90 I10 MCI (mild cognitive impairment) G31.84 MRSA carrier Z22.322 Renal lesion N28.9 ADPKD (autosomal dominant polycystic kidney disease) Q61.2 A-V fistula (HCC) I77.0 Immunosuppression ([facility]) D84.9 Recurrent UTI N39.0 BPH with obstruction/lower urinary tract symptoms N40.1, N13.8 Stage 3b chronic kidney disease ([facility]) N18.32 Aspirin contraindicated Z53.09 Compression fracture of L2 lumbar vertebra ([facility]) S32.020A Compression fracture of L1 lumbar vertebra ([facility]) S32.010A Review of patient's allergies indicates: Allergen Reactions Lisinopril cough Medications: Pt's current medication list is maintained at [facility] and was reviewed at this visit. Review of Systems: Per HPI OBJECTIVE: BP 118/64 | Pulse 78 | Temp 36.8 C (98.2 F) | Resp 17 | SpO2 95% Comment: room air General: alert and no distress. Observed him ambulating with therapy today. Heart: regular rate & rhythm Lungs: chest symmetric with normal AP diameter, no chest deformities noted, no chest wall tenderness, lungs clear to auscultation Abdomen: abdomen soft, non-tender, normal bowel sounds, no masses or organomegaly, and no rebound or guarding Extremities: less than 2 second capillary refill, no joint deformities, effusion, or inflammation, no edema Neuro Exam: alert & oriented x 2-3 with fluent speech, Slight left brow droop (baseline) but otherwise no facial asymmetry, Equal grasp strength bilaterally Exam (Male): sherwood in place draining clear, yellow urine Skin: skin color, texture, turgor are normal Labs reviewed with patient: Results for orders placed or performed in visit on 05/15/23 BASIC METABOLIC PANEL Result Value Ref Range BUN 15 6 - 20 mg/dL Creatinine 1.4 (H) 0.6 - 1.2 mg/dL Estimated Glomerular Filtration Rate 53 (L) >=60 mL/min Sodium 138 135 - 146 mmol/L Potassium 4.6 3.5 - 5.1 mmol/L Chloride 104 98 - 107 mmol/L CO2 26 22 - 32 mmol/L Anion Gap 8 7 - 15 mmol/L Glucose 85 70 - 120 mg/dL Calcium 8.8 8.4 - 10.2 mg/dL CBC Result Value Ref Range WBC 5.18 4.00 - 10.80 K/uL RBC 3.72 4.50 - 5.25 M/uL HGB 11.3 (L) 14.0 - 16.8 g/dL HCT 33.4 (L) 40.0 - 48.4 % MCV 89.8 82.0 - 99.5 fL MCH 30.4 27.0 - 34.0 pg MCHC 33.8 32.0 - 36.0 g/dL RDW 13.0 11.5 - 15.5 % PLT 165 140 - 400 K/uL MPV 8.2 6.6 - 11.1 fL ASSESSMENT/PLAN: [facility] chart (outside system) reviewed for vital signs, nursing notes, CODE STATUS, and most up to date medication list Discussed management with other clinician during the visit (facility DRAPERY INSPECTOR) Chronic subdural hematoma (HCC) (Primary) Personal history of fall Off aspirin Continue PT and OT Discharge planning per child welfare social worker Follow up: 1-2 days and as needed I spent a total of 30 minutes coordinating, documenting, and providing care for this patient excluding time spent in the performance of separately billed services or time spent by another provider/QHP. documented in this encounter Plan of Treatment Upcoming Encounters Date Type Department Care Team (Late st Contact Info) Description 08/04/2023 3:00 PM EDT Office Visit [facility] Surgery [facility] [address] [place] [address] Teresa Bowles MD [address] [place] [address] Health Maintenance Due Date Last Done Comments Depression Screening 1952 Albumin/Creatinine Ratio 1960 COVID-19 Vaccine (2022- season) 2022 08/24/2022, 12/14/2021, 12/14/2021, Additional history exists Influenza Vaccine (FLU shot) (#1) 2022 11/17/2019, 12/17/2018, 11/30/2013 GFR 11/15/2023 05/15/2023, 03/0 08/2023, 04/12/2023, Additional history exists DTaP,Tdap,and Td Vaccines (2 - Td or Tdap) 01/30/2033 01/30/2023 Zoster Vaccines Completed 03/20/2019, 10/24/2018 Pneumococcal Vaccine: 65+ Years Completed 04/12/2021, 12/09/2014 GARDASIL-HPV IMMUNIZATION SERIES Aged Out No [...] Chronic subdural hematoma (HCC)- Primary Subdural hemorrhage Personal history of fall documented in this encounter Additional Health Concerns Infection Onset Date Last Indicated Resolved Time MRSA 04/10/2023 04/10/2023 documented as of this encounter Care Teams Buff Wheel Fabricator Relationship Specialty Start Date End Date Lydia Dobbs MD [address] [place] [address] PCP - General Internal Medicine 02/06/23 documented as of this encounter"
--- OUTSIDE RECORDS SUMMARY | 2023-05-21 18:16 | External Medical Summary ---
Author Name Unknown Address Unknown Organization [id number]:LABORATORY [facility] [place] [address] [place] [id number] Laboratory Report Ordering Provider Test Date Status LOLLY CASILLAS 05/15/2023 06:07:00 Final Observation Date Value Abnormality Reference (Units ) Status WBC, Total 05/15/2023 06:07:00 5.18 4.00-10.8 0 (K/uL) Final RBC 05/15/2023 06:07:00 3.72 4.50-5.25 (M/uL) Final Hemoglobin 05/15/2023 06:07:00 11.3 Below low normal 14 .0-16.8 (g/dL) Final HCT 05/15/2023 06:07:00 33.4 Below low normal 40. 0-48.4 (%) Final MCV 05/15/2023 06:07:00 89.8 82.0-99.5 (fL) Final MCH 05/15/2023 06:07:00 30.4 27.0-34.0 (pg) Final MCHC 05/15/2023 06:07:00 33.8 32.0-36.0 (g/dL) Final RDW 05/15/2023 06:07:00 13.0 11.5-15.5 (%) Final Platelets 05/15/2023 06:07:00 165 140-400 (K /uL) Final MPV 05/15/2023 06:07:00 8.2 6.6-11.1 ( fL) Final Performing Location LABORATORY [facility] [place] [address] [place] [id number]
--- OUTSIDE RECORDS SUMMARY | 2023-05-21 18:16 | External Medical Summary | Summary of Care ---
Author Name Unknown Organization [facility] Address [address] [place] [address] Phone [phone] Care Team Providers Care Male Model Name Role Phone Lydia Dobbs MD Primary Care Provide r Encounter Details Date Type Department Care Team (Late st Contact Info) Description 05/15/2023 Orders Only Lab [facility] [place] [address] [place] [address] Arlen Canales PA-C [address] [place] [address] Chronic kidney disease (CKD)* Allergies Active Allergy Reactions Criticality Noted Date Comments Lisinopril 05/11/2010 cough documented as of this encounter (statuses as of 05/15/2023) Medications Medication Sig Dispensed Refills Start Date [...] as of this encounter (statuses as of 05/15/2023) Active Problems Problem Noted Date Diagnosed Date [...] 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 orthodox - 2016 Hx of BCC on right [...] as of this encounter (statuses as of 05/15/2023) Resolved Problems Problem Noted Date Diagnosed Date Resolved Date Neoplasm of uncertain behavior of skin 03/18/2013 03/21/2017 History of squamous cell carcinoma 03/18/2013 03/21/2017 Other seborrheic keratosis 09/11/2012 0 03/21/2017 documented as of this encounter (statuses as of 05/15/2023) Immunizations Name Administration Dates Next Due Seasonal [...] on file documented as of this encounter Plan of Treatment Upcoming Encounters Date Type Department Care Team (Late st Contact Info) Description 08/04/2023 3:00 PM EDT Office Visit [facility] [address] [place] [address] Teresa Bowles MD [address] [place] [address], [place] [address] Scheduled Orders Name Type Priority Associated Diagnoses Orde r Schedule BASIC METABOLIC PANEL Lab Routine Chronic kidney disease (CKD) Expected: 05/15/2023, Expires: 05/14/2024 CBC Lab Routine Chronic kidney disease (CKD) Expected: 05/15/2023, Expires: 05/14/2024 Health Maintenance Due Date Last Done Comments Depression Screening 1954 Albumin/Creatinine Ratio 1960 COVID-19 Vaccine ( season) 2022 08/24/2022, 08/24/2022, 12/14/2021, Additional history exists Influenza Vaccine (FLU shot) (#1) 2022 11/17/2019, 12/17/2018, 11/30/2013 GFR 11/04/2023 05/04/2023, 03/30, 02/13/2023, Additional history exists DTaP,Tdap,and [...] of this encounter Visit Diagnoses Diagnosis Chronic kidney disease (CKD)- Primary Chronic kidney disease, unspecified documented in this encounter Additional Health Concerns Infection Onset Date Last Indicated Resolved Time MRSA 04/10/2023 04/10/2023 documented as of this encounter Care Teams Male Model Relationship Specialty Start Date End Date Lydia Dobbs MD [address] [place], [place] [address] PCP - General Internal Medicine 02/06/23 documented as of this encounter
--- OUTSIDE RECORDS SUMMARY | 2023-05-21 18:16 | External Medical Summary | Summary of Care ---
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 gnosticist - 2016 Hx of BCC on right [...] Sign Reading Time Taken Comments Blood Pressure 104/65 05/15/2023 5:02 PM EDT Pulse 77 05/15/2023 5:02 PM EDT Temperature 36.5 C (97.7 F) 05/15/2023 5:02 PM ED T Respiratory Rate 17 05/15/2023 5:02 PM EDT Oxygen Saturation 96% 05/15/2023 5:02 PM EDT room air Inhaled Oxygen Concentration - - Weight 73 kg (161 lb) 05/15/2023 5:02 PM EDT Height - - Body Mass Index 21.24 03/31/2015 9:05 AM EST documented in this encounter Progress Notes * Arlen Canales PA-C - 05/15/2023 5:01 PM EDT Name: Kevin Marie Date of : 1940 This note pertains to care provided at [facility]. Please see facility record for original note. This note is not to be edited or addended in [facility]. Editing or addending needs to occur in the facility's medical record. Chief Complaint Patient presents with Skilled Visit TRANSITION EVENT: Type: Skilled visit Date: May 14 Code Status: Full Code SUBJECTIVE: Kevin Marie is a 82 year old male HPI: short-term rehab pt recently hospitalized with confusion, findings of acute on chronic subdural hematoma, was transferred to [facility] for embolization of the middle memingeal artery. He denies headache, dizziness, vision changes. He admits to some fatigue. Pt generally resides in memory care assisted living at [facility]. PMH: Patient Active Problem List Diagnosis Code [...] fracture of L1 lumbar vertebra (HCC) S32.010A Review of patient's allergies indicates: Allergen Reactions Lisinopril cough Medications: Pt's current medication list is maintained at [facility] and was reviewed at this visit. Review of Systems: Per HPI OBJECTIVE: BP 104/65 | Pulse 77 | Temp 36.5 C (97.7 F) | Resp 17 | Wt 73 kg (161 lb) | SpO2 96%Comment: room air | BMI 21.24 kg/m | BSA 1.94 m General: alert, healthy, and no distress Heart: regular rate & rhythm Lungs: chest symmetric with normal AP diameter, no chest deformities noted, no chest wall tenderness, lungs clear to auscultation Abdomen: abdomen soft, non-tender, normal bowel sounds, no masses or organomegaly, and no rebound or guarding Extremities: less than 2 second capillary refill, no joint deformities, effusion, or inflammation, no edema Neuro Exam: alert & oriented x 3 with fluent speech, Talkative, pleasant, Slight left lid asymmetry/droop but otherwise no facial drooping, Speech clear, equal grasp strength, moves both legs equally ASSESSMENT/PLAN: residential chart (outside system) reviewed for vital signs, nursing notes, CODE STATUS, and most up to date medication list Chronic subdural hematoma (HCC) (Primary) Personal history of fall PT and OT Discharge planning per healthcare social worker Follow up: 1-2 days and as needed I spent a total of 16 minutes coordinating, documenting, and providing care for this patient excluding time spent in the performance of separately billed services or time spent by another provider/QHP. documented in this encounter Plan of Treatment Upcoming Encounters Date Type Department Care Team (Late st Contact Info) Description 08/04/2023 3:00 PM EDT Office Visit [address] [place] [place] [address] Teresa Bowles MD [address] [place] [address] Health Maintenance Due Date Last Done Comments Depression Screening 1954 Albumin/Creatinine Ratio 1960 COVID-19 Vaccine ( season) 2022 08/24/2022, 12/14/2021, 12/14/2021, Additional history exists Influenza Vaccine (FLU shot) (#1) 2022 11/17/2019, 12/17/2018, 11/30/2013 GFR 11/15/2023 05/15/2023, 08/2023, 04/12/2023, Additional history exists DTaP,Tdap,and Td [...] documented as of this encounter Care Teams President And Cmo Relationship Specialty Start Date End Date Lydia Dobbs MD [address] [place], [place] [address] PCP - General Internal Medicine 02/06/23 documented as of this encounter"
--- OUTSIDE RECORDS SUMMARY | 2023-05-21 18:17 | External Medical Summary ---
Author Name Unknown Address Unknown Organization [id number]:[facility] [place] [address] [place] [id number] Laboratory Report Ordering Provider Test Date Status AD KNOWLESECHT 05/04/2023 13:07:18 Final Observation Date Value Abnormality Reference (Units ) Status TSH 05/04/2023 13:07:18 0.53 0.27-4.20 (uIU/mL) Final Performing Location LAB[facility]ATORY [facility] - [address] [place] [address] [address]
--- OUTSIDE RECORDS SUMMARY | 2023-05-21 18:17 | External Medical Summary ---
Author Name Unknown Address Unknown Organization K01:LABORATORY [facility] - [address] [place] [id number] Laboratory Report Ordering Provider Test Date Status JOSSELIN KNOWLES 05/04/2023 13:07:18 Final Deficient: <20 ng/mL
Ins ufficient: 20-29 ng/mL
Recommended/Optimum:30-50 ng/mL

Vitamin D intoxication is rare. If suspicious of Vitamin D toxicity, evaluation of serum Calcium and PTH is recommended. Observation Date Value Abnormality Reference (Units ) Status 25-OH Vitamin D total 05/04/2023 13:07:18 39 >19 (ng/mL) Final Performing Location LABORATORY [facility] - [address] [place] [id number]
--- OUTSIDE RECORDS SUMMARY | 2023-05-21 18:17 | External Medical Summary ---
Author Name Unknown Address Unknown Organization K09:LABORATORY [place] [address] [place] [address] Laboratory Report Ordering Provider Test Date Status JOSSELIN KNOWLES 05/04/2023 13:07:18 Final Observation Date Value Abnormality Reference (Units ) Status BUN 05/04/2023 13:07:18 24 Above high normal 6-20 (mg/dL) Final Creatinine 05/04/2023 13:07:18 1.8 Above high normal 0.6-1.2 (mg/dL) Final Glomerular filtration rate/1.73 sq M.predicted [Volume Rate/Area] in Serum, Plasma or Blood by Creatinine-based formula (CKD-EPI) 05/04/2023 13:07:18 38 Below low normal >=60 (mL/min) Final eGFR is calculated based on the CKD-EPI 2020 equation SODIUM 05/04/2023 13:07:18 137 135-146 (m mol/L) Final Potassium 05/04/2023 13:07:18 4.7 3.5-5.1 (m mol/L) Final Cl 05/04/2023 13:07:18 102 98-107 (mm ol/L) Final CO2 05/04/2023 13:07:18 23 22-32 (mmo l/L) Final Anion gap 05/04/2023 13:07:18 12 7-15 (mmol /L) Final Glucose 05/04/2023 13:07:18 139 Above high normal 70 -120 (mg/dL) Final Albumin 05/04/2023 13:07:18 4.5 3.8-5.0 (g /dL) Final AST (Aspartate aminotransferase) 05/04/2023 13:07:18 27 10-50 (U/L) Fin al Alk Phos 05/04/2023 13:07:18 78 35-130 (U/ L) Final Bilirubin, Total 05/04/2023 13:07:18 1.0 <=1 .2 (mg/dL) Final Calcium 05/04/2023 13:07:18 9.6 8.4-10.2 ( mg/dL) Final Protein 05/04/2023 13:07:18 6.8 6.0-8.3 (g /dL) Final ALT (Alanine aminotransferase) 05/04/2023 13:07:18 16 10-50 (U/L) Lake fine Performing Location LABORATORY [place] [address] [place] [address]
--- OUTSIDE RECORDS SUMMARY | 2023-05-21 18:17 | External Medical Summary ---
Author Name Unknown Address Unknown Organization K01:[facility] [place] [address] [place] [id number] Laboratory Report Ordering Provider Test Date Status JOSSELIN KNOWLES 05/04/2023 13:07:18 Final Observation Date Value Abnormality Reference (Units ) Status Vitamin B12 05/04/2023 13:07:18 928 937-1022 (pg/mL) Final Performing Location LAB[facility]ATORY [facility] - [address] [place] [id number]
--- NOTE | 2023-05-21 18:26 | Emergency Department Note ---
Impression & Plan Acute alteration in mental status, Urinary tract infection, Generalized muscle weakness ED Provider Note NAME: TRESSA RODRIGUEZ AGE: 82 SEX: M : 1940 ARRIVES VIA: Ambulance INFORMANT: Patient, EMS ED PROVIDER(S): David Dexter DO CHIEF COMPLAINT: Strokelike symptoms HPI: The patient is an 82-year-old male who presented to the emergency department for strokelike symptoms. The patient was found to have a facial droop and leaning to the right today. The patient's last known well time was approximately 1530. He was then found at 1730 exhibiting the symptoms and was sent to the emergency department. 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 The patient does not offer any complaints. He denies having any headache nausea or vomiting. He denies any recent falls. According to the patient as well as his paperwork he has not been restarted on any blood thinners. He does have a history of renal transplant in the past. ROS: See above HPI for pertinent positives & negatives. A total of 10 systems reviewed and were otherwise negative. PAST MEDICAL HISTORY: See Below PAST SURGICAL HISTORY: See Below FAMILY HISTORY: See Below SOCIAL HISTORY: See Below HOME MEDICATIONS: See Below ALLERGIES: See Below VITALS: See Below PHYSICAL EXAMINATION: GENERAL: The patient is awake and follows commands. EYES: The conjunctivae are clear. The pupils are round and reactive. EARS, NOSE, MOUTH AND THROAT: The nose is without any evidence of any deformity. NECK: The neck is nontender and supple. RESPIRATORY: Normal respiratory effort is noted there is no evidence of wheezing rhonchi or rales CARDIOVASCULAR: Regular rate and rhythm noted there no murmurs rubs or gallops normal S1 normal S2. GASTROINTESTINAL: The abdomen is soft. Abdomen is nontender. MUSCULOSKELETAL/EXTREMITIES: There is no evidence of gross deformity full range of motion is noted in the hips and shoulders. SKIN: There is no obvious evidence of any rash. There are no petechiae, pallor or cyanosis noted. NEUROLOGIC: The patient is awake and alert. The patient is oriented to person place and time. Strength was symmetric but diminished bilaterally. The patient is able to hold each leg off the bed for greater than 5 seconds. There is no drift of the upper extremities. The patient appears to have a slight left-sided facial droop with forehead sparing. Patient is able to close both eyes. Speech is soft but clear. MEDICAL DECISION MAKING: The patient is an 82-year-old male who presented to the emergency department because of altered mental status. The patient was thought to be suffering from a possible stroke. He has a history of a recent subdural hematoma so he would not be a candidate for thrombolytics. On my physical exam the patient did not have any focal neurologic deficits but he was globally weak. I discussed the patient's laboratory and radiographic studies with him and his son. The patient's son is concerned because the patient does not appear to be at his baseline. He states that his father is normally more awake and more able to interact. He is also able to ambulate. For this reason I discussed the patient's condition [facility] They have agreed to evaluate the patient in the emergency department for further management and disposition. Triage Nursing notes reviewed. Prior medical records reviewed Vital Signs: reviewed and remarkable for no significant abnormalities Differential diagnosis: Infection, dehydration, metabolic abnormality, hypo/hyperglycemia, electrolyte disturbance, anemia, hypoxia, cardiac sources, intracerebral event, toxicologic, neurologic, as well as other pathologies. I will ER treatment provided: See below Diagnostics interpreted by me: ECG: EKG was obtained in the emergency department. My interpretation is normal sinus rhythm at 79 bpm. There is no ectopy. There is no acute ST segment abnormalities noted. This was compared to a tracing from May 04, 2023. No changes were noted. Cardiac Monitoring: An order was placed for continuous cardiac monitoring. The monitor shows a rate of 83 bpm with sinus rhythm Laboratory studies: As stated above and show below. Imaging studies: See below. Radiographic imaging was reviewed by myself Consultation(s): I discussed this case with Dr. 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 Depression Hypercholesterolemia Polycystic kidney Surgical History Renal transplant recipient History of cataract surgery RT/LEFT H/O right inguinal hernia repair S/P kidney transplant 2006 at [facility] [place] r/t polycystic kidney History of colonoscopy Status post Mohs surgery H/O transurethral resection of prostate Family History Grandfather (Maternal) Cardiac disorder Grandmother (Paternal) Cardiac disorder Grandfather (Paternal) Cardiac disorder Mother Cardiac disorder Hypertension Grandmother (Maternal) Diabetes Brother Hypertension Sister Renal transplant, status post Hypertension Other No family history of adverse response to anesthesia Social History Smoking Status: Unknown if ever smoked Tobacco Type: Cigarettes Second Hand Exposure: No; Do You Dip or Chew Tobacco: No; Hx Alcohol Use: No Hx Substance Use: No Preferred Language: Faroese Communication Ability: Impaired Visual Impairment: No Limitations Hearing Ability: Normal Heater Worker Required: No Beliefs That Will Affect Care: None marital status: Current 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 How many Children do You have: 2 Feels Safe at Home: Yes Diet: regular during the past year weight has: decreased > 10 lbs Dental Care, Regularly: No Seatbelt Use: always Sunscreen Use: Yes Assistive Devices: Walker Allergies Allergies Allergy/AdvReac Type Severity Reaction Status Date / Time lisinopril AdvReac Intermediate Cough Verified 05/04/23 19:21 Home Meds Home Medications Medication Instructions Recorded Confirmed calcium carbonate 200 mg calcium 200 mg PO BIDM 12/02/22 05/21/23 (500 mg) chewable tablet (Tums) magnesium oxide 400 mg PO QPM 12/02/22 05/21/23 sertraline 50 mg tablet 75 mg PO DAILY 04/17/23 05/21/23 acetaminophen 325 mg tablet 650 mg PO Q4 PRN Fever Or Pain 05/21/23 05/21/23 bisacodyl 10 mg rectal suppository 10 mg WA .Q 24 HOURS PRN 05/21/23 05/21/23 (Dulcolax (bisacodyl)) constipation on day 4 no BM docusate sodium 100 mg capsule 100 mg PO .EVERY 24 HOURS PRN 05/21/23 05/21/23 (Colace) constipation on day 2 no BM polyethylene glycol 3350 17 17 g PO .EVERY 24 HOURS PRN 05/21/23 05/21/23 gram/dose oral powder (Miralax) constipation 3rd day of no BM tacrolimus 1 mg capsule, 1 mg PO QPM 05/21/23 05/21/23 immediate-release tacrolimus 1 mg capsule, 2 mg PO QAM 05/21/23 05/21/23 immediate-release Previous Rx's Medication Instructions Recorded brimonidine 0.2 % eye drops 1 drp OPB HS #15 mL 12/01/22 amlodipine 5 mg tablet 5 mg PO DAILY #90 tabs 01/09/23 methenamine hippurate 1 gram tablet 1 g PO BID #0 tabs 02/06/23 mycophenolate mofetil 250 mg 250 mg PO BID #60 ea 02/10/23 capsule Results & Data (ED) Vital Signs Vital Signs - 24 hr 05/21/23 18:34 05/21/23 18:34 05/21/23 18:34 Temperature 36.7 C Temperature Source Oral Pulse Rate 79 Pulse Rate [Apical] 79 Respiratory Rate 12 12 Blood Pressure 124/65 Blood Pressure [Right Arm] 124/65 Blood Pressure Mean 84 Blood Pressure Mean [Right Arm] 84 Pulse Oximetry 98 98 98 Oxygen Delivery Method Room Air Room Air Sepsis Recent Fever Within 48 Hours No Sepsis New/Unexplained Change in Mental Status No Sepsis Action Taken by Nursing No Action Required 05/21/23 18:37 Temperature Temperature Source Pulse Rate 83 Pulse Rate [Apical] Respiratory Rate Blood Pressure Blood Pressure [Right Arm] Blood Pressure Mean Blood Pressure Mean [Right Arm] Pulse Oximetry Oxygen Delivery Method Sepsis Recent Fever Within 48 Hours Sepsis New/Unexplained Change in Mental Status Sepsis Action Taken by Custodial Medications Current Medication List: was personally reviewed by me Laboratory Data Attestation: I reviewed the patient's lab results. 05/21/23 18:25 05/21/23 18:25 Lab Results 05/21/23 05/21/23 05/21/23 Range/Units 18:25 18:45 19:01 WBC 5.74 (4.8-10.8) K/ul RBC 4.18 L (4.70-6.10) M/uL Hgb 12.4 L (14.0-18.0) g/dl Hct 37.8 L (42.0-52.0) % MCV 90.4 (80.0-100.0) fL MCH 29.7 (25.0-34.0) pg MCHC 32.8 (32.0-36.0) g/dL RDW Std Deviation 42.5 (36.4-46.3) fL RDW Coeff of Reema 13.1 (11.5-14.5) % Plt Count 166 (130-400) K/uL MPV 8.0 L (9.4-12.4) fL Immature Gran % (Auto) 0.3 % Neut % (Auto) 73.7 % Lymph % (Auto) 18.1 % [place] % (Auto) 6.4 % Eos % (Auto) 1.0 % Baso % (Auto) 0.5 % Neut # (Auto) 4.22 (1.40-6.50) K/uL Lymph # (Auto) 1.04 L (1.20-3.40) K/uL [place] # (Auto) 0.37 (0.11-0.59) K/uL Eos # (Auto) 0.06 (0.00-0.50) K/uL Baso # (Auto) 0.03 (0.00-0.20) K/uL Immature Gran # (Auto) 0.02 (0.01-0.20) K/uL PT 11.5 (9.0-12.0) Seconds INR 1.1 (0.9-1.1) APTT 29 (21-31) Seconds PTT Ratio 1.0 Sodium 138 (136-145) mmol/L Potassium 4.2 (3.5-5.1) mmol/L Chloride 107 (98-107) mmol/L Carbon Dioxide 26 (21-32) mmol/L Anion Gap 5 (3-11) BUN 25 H (6-23) mg/dl Creatinine 1.31 (0.6-1.4) mg/dl Est Cr Clr Drug Dosing 48.5 ml/min Est GFR ( Amer) 59.2 ml/min Est GFR (Non-Af Amer) 51.1 ml/min BUN/Creatinine Ratio 19.1 (10-20) Glucose 104 H (70-99(Fasting)) mg/dl POC Glucose 104 H (70-99) mg/dl Calcium 8.7 (8.6-10.3) mg/dl Magnesium 1.8 (1.7-2.4) mg/dl Total Bilirubin 0.6 (0.2-1.0) mg/dl AST 18 (13-39) U/L ALT 11 (7-52) U/L Alkaline Phosphatase 102 (34-104) U/L Troponin I High Sens 8.6 (0-20) pg/ml Total Protein 6.1 (6.0-8.3) gm/dl Albumin 3.6 (3.4-5.0) gm/dl Globulin 2.5 (2.5-4.0) gm/dl Albumin/Globulin Ratio 1.4 (0.9-2) Urine Color Yellow Urine Appearance Turbid A (Clear) Urine pH 7.5 (4.5-7.5) Ur Specific [place] 1.017 (1.000-1.030) Urine Protein 1+ H (Negative) Urine Glucose (UA) Negative (Negative) Urine Ketones Negative (Negative) Urine Blood 1+ H (Negative) Urine Nitrite Negative (Negative) Urine Bilirubin Negative (Negative) Urine Urobilinogen Negative (Negative) Ur Leukocyte Esterase 3+ H (Negative) Urine WBC (Auto) >30 H (0-5) /hpf Urine RBC (Auto) 0-4 (0-4) /hpf U Hyaline Cast (Auto) 1-5 (0-5) /lpf U Epithel Cells (Auto) 10-20 H (0-5) /lpf Urine Bacteria (Auto) 1+ H (Negative) Urine Crystals Calcium Oxalate A (None Prsent) Calcium Oxalate Crystal Present A (None Prsent) Administered Medications Magnesium Sulfate/Dextrose (Magnesium Sulfate / D5w) 1 gm in 100 mls @ 50 mls/hr IV ONE ONE Stop: 05/21/23 22:19 Last Admin: 05/21/23 20:45 Dose: 50 mls/hr Documented By: ALEE Sodium Chloride (Nss) 500 mls @ 60 mls/hr IV .Q8H20M ONE Stop: 05/22/23 04:40 Last Admin: 05/21/23 20:45 Dose: 60 mls/hr Documented By: ALEE Discontinued Medications Ceftriaxone Sodium (Rocephin) 2,000 mg in 50 mls @ 100 mls/hr IV NOW STA Stop: 05/21/23 20:18 Last Infusion: 05/21/23 20:42 Dose: Infused Documented By: Admin: 05/21/23 20:09 Dose: 100 mls/hr Documented By: ALEE Imaging Data Attestation: I personally reviewed and interpreted this imaging study as follows: My Impression: 1 view chest x-ray was obtained in the emergency department. My interpretation is no free air or definite infiltrate, final report below. CT of the brain was obtained in the emergency department. My interpretation is no intracranial hemorrhage or mass effect, final report below Radiologist's Impression: Chest X-Ray 05/21/23 18:20 XR chest 1V portable CLINICAL HISTORY: neuro deficit, acute stroke suspected TECHNIQUE: Single frontal radiograph of the chest was obtained. Comparison: Comparison is made to chest radiograph 05/04/2023 FINDINGS: No lines and tubes are seen. Cardiomegaly is noted. The lungs are clear. No evidence of pleural effusion or pneumothorax. IMPRESSION: No acute chest disease. ACT 112: Negative or not required by law. Electronically signed by: Kevin Saleh M.D. 05/21/2023 6:[address] 05/21/23 18:20 CT head/brain wo con CLINICAL HISTORY: neuro deficit, acute stroke suspected Technique: Contiguous axial CT images of the head were acquired from the base of the skull to the vertex without intravenous contrast administration. Images were viewed in brain, subdural and bone windows. Automated dose lowering techniques and/or adjustment according to patient size were utilized for this exam. Comparison: Comparison is made to CT head 05/04/2023 Findings: Areas of decreased attenuation are present in the periventricular and subcortical white matter bilaterally consistent with small vessel ischemic disease. Generalized cerebral atrophy with commensurate enlargement of the ventricles, sulci, and cisterns is also present. There is no acute intracranial hemorrhage or evidence of acute territorial infarction. No shift of the midline structures, mass effect, or extra-axial abnormalities are shown. Atherosclerotic calcifications are present in the intracranial segments of the internal carotid arteries. Imaged portions of the paranasal sinuses and mastoid air cells are clear. The orbits appear normal. There are no acute fractures of the calvaria or scalp swelling. Impression: No acute intracranial hemorrhage, no evidence of acute territorial infarction or other acute intracranial disease process. ACT 112: Negative or not required by law. Electronically signed by: Kevin Saleh M.D. 05/21/2023 6:43 PM Discharge Plan Visit Data Chief Complaint: Stroke/CVA Symptoms ED Provider: David Dexter Discharge Problem: Acute alteration in mental status, Urinary tract infection, Generalized muscle weakness Patient Disposition: Being Evaluated by Hospitalist Forms Stand Alone Forms: My [facility] Prescriptions Prescriptions: No Action brimonidine 0.2 % drops 1 drp OPB HS Qty: 15 3RF Rx Instructions: Instill 1 drop into each eye at bedtime amlodipine 5 mg tablet 5 mg PO DAILY Qty: 90 3RF mycophenolate mofetil 250 mg capsule 250 mg PO BID Qty: 60 3RF Rx Instructions: please expedite sertraline 50 mg tablet 75 mg PO DAILY Rx Instructions: 1 & 1/2 tablet dose magnesium oxide 400 mg magnesium tablet 400 mg PO QPM calcium carbonate [Tums] 200 mg calcium (500 mg) tablet,chewable 200 mg PO BIDM methenamine hippurate 1 gram Tablet 1 g PO BID Qty: 0 0RF tacrolimus 1 mg Capsule 2 mg PO QAM tacrolimus 1 mg capsule 1 mg PO QPM polyethylene glycol 3350 [Miralax] 17 gram/dose Powder 17 g PO .EVERY 24 HOURS PRN (Reason: constipation 3rd day of no BM) Rx Instructions: mix in 8oz water or juice acetaminophen 325 mg Tablet 650 mg PO Q4 MDD 3g PRN (Reason: Fever Or Pain) Rx Instructions: use for all pain levels and TEMP=>100 docusate sodium [Colace] 100 mg Capsule 100 mg PO .EVERY 24 HOURS PRN (Reason: constipation on day 2 no BM) bisacodyl [Dulcolax (bisacodyl)] 10 mg Suppository 10 mg WA .Q 24 HOURS PRN (Reason: constipation on day 4 no BM) Rx Instructions: call MD if does move bowels in am Referrals Referrals: Sergio Cesar MD [Primary Care Provider] - Discharge Problem: Urinary tract infection Qualifiers: Urinary tract infection type: site unspecified Hematuria presence: without hematuria Qualified Code(s): N39.0 - Urinary tract infection, site not specified
--- NOTE | 2023-05-21 18:36 | XRay Report ---
XR chest 1V portable CLINICAL HISTORY: neuro deficit, acute stroke suspected TECHNIQUE: Single frontal radiograph of the chest was obtained. Comparison: Comparison is made to chest radiograph 05/04/2023 FINDINGS: No lines and tubes are seen. Cardiomegaly is noted. The lungs are clear. No evidence of pleural effus ion or pneumothorax. IMPRESSION: No acute chest disease. ACT 112: Negative or not required by law. Electronically signed by: Kevin Saleh M.D. 05/21/2023 6:34 PM
[2023-05-21 18:45] LABS: Basophils # (auto) 0.03 K/uL (0.00-0.20); Basophils % (auto) 0.5 %; Eosinophils # (auto) 0.06 K/uL (0.00-0.50); Hematocrit (blood only) 37.8 % (42.0-52.0); Hemoglobin 12.4 g/dl (14.0-18.0); Immature Granulocytes # (auto) 0.02 K/uL (0.01-0.20); Immature Granulocytes % (auto) 0.3 %; Lymphocytes # (auto) 1.04 K/uL (1.20-3.40); Lymphocytes % (auto) 18.1 %; Mean Corpuscular Hemoglobin 29.7 pg (25.0-34.0); Mean Corpuscular Hgb Conc 32.8 g/dL (32.0-36.0); Mean Corpuscular Volume 90.4 fL (80.0-100.0); Monocytes # (auto) 0.37 K/uL (0.11-0.59); Monocytes % (auto) 6.4 %; Neutrophils # (auto) 4.22 K/uL (1.40-6.50); Neutrophils % (auto) 73.7 %; Platelet Count 166 K/uL (130-400); RDW Coefficient of Variation 13.1 % (11.5-14.5); RDW Standard Deviation 42.5 fL (36.4-46.3); Red Blood Count 4.18 M/uL (4.70-6.10); White Blood Count 5.74 K/ul (4.8-10.8)
--- NOTE | 2023-05-21 18:45 | CT Scan Report ---
CT head/brain wo con CLINICAL HISTORY: neuro deficit, acute stroke suspected Technique: Contiguous axial CT images of the head were acquired from the base of the skull to the anish shira without intravenous contrast administration. Images were viewed in brain, subdural and [facility]. Automated dose lowering techniques and/or adjustment according to patient size were utilized for this exam. Comparison: Comparison is made to CT head 05/04/2023 Findings: Areas of decreased attenuation are present in the periventricular and subcortical white matter bilate rally consistent with small vessel ischemic disease. Generalized cerebral atrophy with commensurate e nlargement of the ventricles, sulci, and cisterns is also present. There is no acute intracranial hem orrhage or evidence of acute territorial infarction. No shift of the midline structures, mass effect, or extra-axial abnormalities are shown. Atherosclerotic calcifications are present in the intracran ial segments of the internal carotid arteries. Imaged portions of the paranasal sinuses and mastoid air cells are clear. The orbits appear normal. There are no acute fractures of the calvaria or scalp swelling. Impression: No acute intracranial hemorrhage, no evidence of acute territorial infarction or other acute intracra nial disease process. ACT 112: Negative or not required by law. Electronically signed by: Kevin Saleh M.D. 05/21/2023 6:43 PM
[2023-05-21 19:03] LABS: Appearance Urine Turbid (Clear); Bilirubin Urine Negative (Negative); Blood Urine 1+ (Negative); Color Urine Yellow; Glucose Urine UA Negative (Negative); Ketones Urine Negative (Negative); Leukocyte Esterase Urine 3+ (Negative); Nitrite Urine Negative (Negative); Specific Gravity Urine 1.017 (1.000-1.030); Urobilinogen Urine Negative (Negative); WBC Urine Automated >30 /hpf (0-5); pH Urine 7.5 (4.5-7.5)
[2023-05-21 19:04] LABS: Protein Urine 1+ (Negative)
[2023-05-21 19:04] LABS: Albumin Globulin Ratio 1.4 (0.9-2); Albumin Level 3.6 gm/dl (3.4-5.0); BUN Creatinine Ratio 19.1 (10-20); Bilirubin,Total 0.6 mg/dl (0.2-1.0); Calcium 8.7 mg/dl (8.6-10.3); Creatinine Clr Calc Pharmacy 48.5 ml/min; Est GFR (African American) 59.2 ml/min; Est GFR (Non-African American) 51.1 ml/min; Globulin 2.5 gm/dl (2.5-4.0); Magnesium 1.8 mg/dl (1.7-2.4); Potassium 4.2 mmol/L (3.5-5.1); Total Protein 6.1 gm/dl (6.0-8.3)
[2023-05-21 19:11] LABS: Troponin I High Sensitivity 8.6 pg/ml (0-20)
[2023-05-21 19:16] LABS: Calcium Oxalate Crystals Urine Present (None Prsent)
[2023-05-21 19:17] LABS: Bacteria Urine Automated 1+ (Negative); RBC Urine Automated 0-4 /hpf (0-4)
[2023-05-21 19:19] LABS: INR 1.1 (0.9-1.1); Partial Thromboplastin Time 29 Seconds (21-31); Prothrombin Time 11.5 Seconds (9.0-12.0)
[2023-05-21] MEDS: cefTRIAXone SODIUM 2,000 MG/50 ML BAG IV STA (20:09)
[2023-05-21] MEDS: SODIUM CHLORIDE 0.9% 500 ML IV ONE (20:45)
[2023-05-21] MEDS: MAGNESIUM SULFATE / D5W 1 GM/100 ML BAG IV ONE (20:45)
--- NOTE | 2023-05-21 21:19 | History & Physical Report ---
Date of Service May 21, 2023 Assessment & Plan (1) Encephalopathy: Plan: History dementia hx recurrent UTIs secondary to incomplete bladder emptying with indwelling Lopez catheter on methenamine suppression Rx, no sepsis for now Rule out TIA given transient strokelike symptoms hypertension, stable end-stage renal disease secondary to polycystic kidney disease status post kidney transplant on immunosuppressive (tacrolimus and CellCept) regimen DUSTY CPAP noncompliance chronic subdural hematomas status post surgery History BPH status post surgery chronic anemia, hemoglobin at baseline past tobacco abuse Medical telemetry Neurochecks Urine CS, Azactam for now given microbiologic history (history Zosyn resistant Enterobacter and Pseudomonas), avoid cefepime given history of myoclonic jerks/possible seizures as per records Add Daptomycin if patient develops sepsis on above antibiotic Rx (hx Enterococcus as per records), patient already on methenamine suppression Rx which has Enterococcus coverage MRI/MRA brain Additional stroke workup pending MRI results Neurology consult contingent on MRI results (patient known to Dr. Dhillon of [facility] [place] as per family). DVT prophylaxis. SCDs RE traumatic subdural hematoma Full code Patient requesting updates providers. Xena Marie, contact #[phone]. Text document was generated using [employer] voice recognition software. It may contain grammatical or spelling errors. Kindly contact undersigned for clarification of any documentation item in question. History of Present Illness Chief Complaint: Infection as per patient Strokelike symptoms as per records Primary Care Provider: Sergio Cesar MD History obtained from patient, family, and records. Limited Medical history significant for hypertension, end-stage renal disease secondary to polycystic kidney disease status post kidney transplant on immunosuppressive (tacrolimus and CellCept) regimen, DUSTY CPAP noncompliance, recurrent UTIs secondary to incomplete bladder emptying with indwelling Lopez catheter on methenamine suppression Rx, BPH status post surgery, renal cyst, chronic subdural hematoma status post surgery, history of lumbar compression fractures, mood disorder, dementia, chronic anemia (baseline hemoglobin of 12), skin cancer as per records, hx MRSA, past tobacco abuse. Recent [facility] May 04 to 2023 for acute on chronic subdural hematoma status post right MMA embolization. Patient aspirin discontinued indefinitely given fall risk and history of subdural hematoma. Patient subsequent discharged to [facility] care unit. This afternoon, patient noted to have a facial droop and leaning more to the right side. Somewhat confused more than usual as per family. Patient denies headache, chest pain, SOB, abdominal, or flank pain. IV ceftriaxone administered at the ER. Patient seems back to baseline at the ER as per family. Medical History as above Surgical History : Kidney transplant, vascular procedures, inguinal hernia repair, TURP Family History : Heart disease, DM Personal/Social history : Past tobacco abuse, no EtOH intake, dementia unit resident Allergies Allergy/AdvReac Type Severity Reaction Status Date / Time lisinopril AdvReac Intermediate Cough Verified 05/04/23 19:21 Home Medications Medication Instructions Recorded Confirmed Type brimonidine 0.2 % eye drops 1 drp OPB HS #15 mL 12/01/22 05/21/23 Rx calcium carbonate 200 mg calcium 200 mg PO BIDM 12/02/22 05/21/23 History (500 mg) chewable tablet (Tums) magnesium oxide 400 mg PO QPM 12/02/22 05/21/23 History amlodipine 5 mg tablet 5 mg PO DAILY #90 tabs 01/09/23 05/21/23 Rx methenamine hippurate 1 gram tablet 1 g PO BID #0 tabs 02/06/23 05/21/23 Rx mycophenolate mofetil 250 mg 250 mg PO BID #60 ea 02/10/23 05/21/23 Rx capsule sertraline 50 mg tablet 75 mg PO DAILY 04/17/23 05/21/23 History acetaminophen 325 mg tablet 650 mg PO Q4 PRN Fever Or Pain 05/21/23 05/21/23 History bisacodyl 10 mg rectal suppository 10 mg DE .Q 24 HOURS PRN 05/21/23 05/21/23 History (Dulcolax (bisacodyl)) constipation on day 4 no BM docusate sodium 100 mg capsule 100 mg PO .EVERY 24 HOURS PRN 05/21/23 05/21/23 History (Colace) constipation on day 2 no BM polyethylene glycol 3350 17 17 g PO .EVERY 24 HOURS PRN 05/21/23 05/21/23 History gram/dose oral powder (Miralax) constipation 3rd day of no BM tacrolimus 1 mg capsule, 1 mg PO QPM 05/21/23 05/21/23 History immediate-release tacrolimus 1 mg capsule, 2 mg PO QAM 05/21/23 05/21/23 History immediate-release Past Med/Surg History Medical History Hypertension Subdural hematoma Chronic indwelling Lopez catheter Mild cognitive impairment Pre-syncope Hx of basal cell carcinoma AV fistula LEFT ARM>HAD DIALYSIS BEFORE KIDNEY *2006 [place] FOR 5 MONTHS Hx of squamous cell carcinoma Unintentional weight loss Hearing deficit Primary hypertension Prediabetes Obstructive sleep apnea unable to tolerate cpap machine. Depression Hypercholesterolemia Polycystic kidney Surgical History Renal transplant recipient History of cataract surgery RT/LEFT H/O right inguinal hernia repair S/P kidney transplant [place] [facility] r/t polycystic kidney History of colonoscopy Status post Mohs surgery H/O transurethral resection of prostate Family History Grandfather (Maternal) Cardiac disorder Grandmother (Paternal) Cardiac disorder Grandfather (Paternal) Cardiac disorder Mother Cardiac disorder Hypertension Grandmother (Maternal) Diabetes Brother Hypertension Sister Renal transplant, status post Hypertension Other No family history of adverse response to anesthesia Social History Smoking Status: Unknown if ever smoked Tobacco Type: Cigarettes Second Hand Exposure: No; Do You Dip or Chew Tobacco: No; Hx Alcohol Use: No Hx Substance Use: No Preferred Language: Iranian Communication Ability: Impaired Visual Impairment: No Limitations Hearing Ability: Normal Coal Weigher Required: No Beliefs That Will Affect Care: None marital status: Current Living Situation: [facility] current occupational status: retired How many Children do You have: 2 Feels Safe at Home: Yes Diet: regular during the past year weight has: decreased > 10 lbs Dental Care, Regularly: No Seatbelt Use: always Sunscreen Use: Yes Assistive Devices: Walker Review of Systems Review of Systems: Could not be reliably obtained secondary to dementia Physical Exam Physical Exam: GENERAL: Demented, comfortable, no respiratory distress SKIN: Pallor, warm HEENT: Bespectacled, pale palpebral conjunctivae, no ptosis, dry buccal mucosa NECK : Supple, no tenderness CHEST : CTA, no tenderness HEART : RRR, no obvious murmurs ABDOMEN: Some distention, nontender EXTREMITIES : No LE swelling/tenderness, no other conspicuous deformities noted NEUROLOGIC : Demented, no facial asymmetry, no other gross focality Results & Data Results & Data Vital Signs (Past 12 Hours) Vital Signs Temp Pulse Pulse Resp BP BP Pulse Ox 05/21/23 18:37 83 05/21/23 18:34 79 12 124/65 98 05/21/23 18:34 98 05/21/23 18:34 36.7 C 79 12 124/65 98 O2 Del Method 05/21/23 18:37 05/21/23 18:34 05/21/23 18:34 Room Air 05/21/23 18:34 Room Air Laboratory Results Laboratory Results WBC 5.74 K/ul (4.8-10.8) 05/21/23 18: RBC 4.18 M/uL (4.70-6.10) L 05/21/23 18:25 Hgb 12.4 g/dl (14.0-18.0) L 05/21/23 18: Hct 37.8 % (42.0-52.0) L 05/21/23 18: MCV 90.4 fL (80.0-100.0) 05/21/23 18: MCH 29.7 pg (25.0-34.0) 05/21/23 18: MCHC 32.8 g/dL (32.0-36.0) 05/21/23 18: RDW Std Deviation 42.5 fL (36.4-46.3) 05/21/23 18: RDW Coeff of Reema 13.1 % (11.5-14.5) 05/21/23 18: Plt Count 166 K/uL (130-400) 05/21/23 18:25 MPV 8.0 fL (9.4-12.4) L 05/21/23 18: Immature Gran % (Auto) 0.3 % 05/21/23 18: Neut % (Auto) 73.7 % 05/21/23 18: Lymph % (Auto) 18.1 % 05/21/23 18: Divide % (Auto) 6.4 % 05/21/23 18:25 Eos % (Auto) 1.0 % 05/21/23 18: Baso % (Auto) 0.5 % 05/21/23 18:25 Neut # (Auto) 4.22 K/uL (1.40-6.50) 05/21/23 18:25 Lymph # (Auto) 1.04 K/uL (1.20-3.40) L 05/21/23 18:25 Divide # (Auto) 0.37 K/uL (0.11-0.59) 05/21/23 18:25 Eos # (Auto) 0.06 K/uL (0.00-0.50) 05/21/23 18:25 Baso # (Auto) 0.03 K/uL (0.00-0.20) 05/21/23 18:25 Immature Gran # (Auto) 0.02 K/uL (0.01-0.20) 05/21/23 18:25 PT 11.5 Seconds (9.0-12.0) 05/21/23 18:25 INR 1.1 (0.9-1.1) 05/21/23 18:25 APTT 29 Seconds (21-31) 05/21/23 18:25 PTT Ratio 1.0 05/21/23 18:25 Sodium 138 mmol/L (136-145) 05/21/23 18:25 Potassium 4.2 mmol/L (3.5-5.1) 05/21/23 18:25 Chloride 107 mmol/L (98-107) 05/21/23 18:25 Carbon Dioxide 26 mmol/L (21-32) 05/21/23 18:25 Anion Gap 5 (3-11) 05/21/23 18:25 BUN 25 mg/dl (6-23) H 05/21/23 18:25 Creatinine 1.31 mg/dl (0.6-1.4) 05/21/23 18:25 Est Cr Clr Drug Dosing 48.5 ml/min 05/21/23 18:25 Est GFR ( Amer) 59.2 ml/min 05/21/23 18:25 Est GFR (Non-Af Amer) 51.1 ml/min 05/21/23 18:25 BUN/Creatinine Ratio 19.1 (10-20) 05/21/23 18:25 Glucose 104 mg/dl (70-99(Fasting)) H 05/21/23 18:25 POC Glucose 104 mg/dl (70-99) H 05/21/23 19:01 Calcium 8.7 mg/dl (8.6-10.3) 05/21/23 18:25 Magnesium 1.8 mg/dl (1.7-2.4) 05/21/23 18:25 Total Bilirubin 0.6 mg/dl (0.2-1.0) 05/21/23 18:25 AST 18 U/L (13-39) 05/21/23 18:25 ALT 11 U/L (7-52) 05/21/23 18:25 Alkaline Phosphatase 102 U/L (34-104) 05/21/23 18:25 Troponin I High Sens 8.6 pg/ml (0-20) 05/21/23 18:25 Total Protein 6.1 gm/dl (6.0-8.3) 05/21/23 18:25 Albumin 3.6 gm/dl (3.4-5.0) 05/21/23 18:25 Globulin 2.5 gm/dl (2.5-4.0) 05/21/23 18: Albumin/Globulin Ratio 1.4 (0.9-2) 05/21/23 18:25 Urine Color Yellow 05/21/23 18:45 Urine Appearance Turbid (Clear) A 05/21/23 18:45 Urine pH 7.5 (4.5-7.5) 05/21/23 18:45 Ur Specific [place] 1.017 (1.000-1.030) 05/21/23 18:45 Urine Protein 1+ (Negative) H 05/21/23 18:45 Urine Glucose (UA) Negative (Negative) 05/21/23 18:45 Urine Ketones Negative (Negative) 05/21/23 18:45 Urine Blood 1+ (Negative) H 05/21/23 18:45 Urine Nitrite Negative (Negative) 05/21/23 18:45 Urine Bilirubin Negative (Negative) 05/21/23 18:45 Urine Urobilinogen Negative (Negative) 05/21/23 18:45 Ur Leukocyte Esterase 3+ (Negative) H 05/21/23 18:45 Urine WBC (Auto) >30 /hpf (0-5) H 05/21/23 18:45 Urine RBC (Auto) 0-4 /hpf (0-4) 05/21/23 18:45 U Hyaline Cast (Auto) 1-5 /lpf (0-5) 05/21/23 18:45 U Epithel Cells (Auto) 10-20 /lpf (0-5) H 05/21/23 18:45 Urine Bacteria (Auto) 1+ (Negative) H 05/21/23 18:45 Urine Crystals Calcium Oxalate (None Prsent) A 05/21/23 18:45 Calcium Oxalate Crystal Present (None Prsent) A 05/21/23 18:45 Impressions Chest X-Ray 05/21/23 18:20 XR chest 1V portable CLINICAL HISTORY: neuro deficit, acute stroke suspected TECHNIQUE: Single frontal radiograph of the chest was obtained. Comparison: Comparison is made to chest radiograph 05/04/2023 FINDINGS: No lines and tubes are seen. Cardiomegaly is noted. The lungs are clear. No evidence of pleural effusion or pneumothorax. IMPRESSION: No acute chest disease. ACT 112: Negative or not required by law. Electronically signed by: Kevin Saleh M.D. 05/21/2023 6:[address] 05/21/23 18:20 CT head/brain wo con CLINICAL HISTORY: neuro deficit, acute stroke suspected Technique: Contiguous axial CT images of the head were acquired from the base of the skull to the vertex without intravenous contrast administration. Images were viewed in brain, subdural and bone windows. Automated dose lowering techniques a nd/or adjustment according to patient size were utilized for this exam. Comparison: Comparison is made to CT head 05/04/2023 Findings: Areas of decreased attenuation are present in the periventricular and subcortical white matter bilaterally consistent with small vessel ischemic disease. Generalized cerebral atrophy with commensurate enlargement of the ventricles, sulci, and cisterns is also present. There is no acute intracranial hemorrhage or evidence of acute territorial infarction. No shift of the midline structures, mass effect, or extra-axial abnormalities are shown. Atheroscleroti c calcifications are present in the intracranial segments of the internal carotid arteries. Imaged portions of the paranasal sinuses and mastoid air cells are clear. The orbits appear normal. There are no acute fractures of the calvaria or scalp swelling. Impression: No acute intracranial hemorrhage, no evidence of acute territorial infarction or other acute intracranial disease process. ACT 112: Negative or not required by law. Electronically signed by: Kevin Saleh M.D. 05/21/2023 6:43 PM Diagnostic Findings EKG as per my interpretation : Rate 80, NSR, LAD, LAFB, septal infarct, no ischemia
[2023-05-21] MEDS: AZTREONAM 2,000 MG in DEXTROSE 5% MINI-B 100 ML IV ONE (21:55)
[2023-05-21] MEDS ORDERED: ACETAMINOPHEN 325 MG TAB PO PRN (21:58)
[2023-05-21] MEDS ORDERED: DOCUSATE SODIUM 100 MG CAP PO PRN (21:58)
[2023-05-21] MEDS ORDERED: PHARMACIST DISCHARGE MED REC CONSULT PRN (21:58)
[2023-05-21] MEDS ORDERED: PROMETHAZINE HCL 6.25 MG in SODIUM CHLORIDE 0.9% 50 ML IV PRN (21:58)
[2023-05-21] MEDS ORDERED: bisacodyL 10 MG SUPP PR PRN (21:58)
[2023-05-21] MEDS ORDERED: POLYETHYLENE (MIRALAX) 17 GM PACK PO PRN (21:58)
--- NOTE | 2023-05-22 01:00 | Magnetic Resonance Report ---
Exam(s): MRA HEAD Without Contrast EXAM: MR Angiography Head Without Intravenous Contrast CLINICAL HISTORY: Reason for exam: tia. TECHNIQUE: Magnetic resonance angiography images of the head without intravenous contrast. COMPARISON: No relevant prior studies available. FINDINGS: Right internal carotid artery: No acute findings. Intracranial segment is patent with no significant stenosis. No aneurysm. Right anterior cerebral artery: Unremarkable. No occlusion or significant stenosis. No aneurysm. Right middle cerebral artery: Unremarkable. No occlusion or significant stenosis. No aneurysm. Right posterior cerebral artery: Unremarkable. No occlusion or significant stenosis. No aneurysm. Right vertebral artery: Unremarkable as visualized. Left internal carotid artery: No acute findings. Intracranial segment is patent with no significant stenosis. No aneurysm. Left anterior cerebral artery: Unremarkable. No occlusion or significant stenosis. No aneurysm. Left middle cerebral artery: Unremarkable. No occlusion or significant stenosis. No aneurysm. Left posterior cerebral artery: Unremarkable. No occlusion or significant stenosis. No aneurysm. Left vertebral artery: Unremarkable as visualized. Basilar artery: Unremarkable. No occlusion or significant stenosis. No aneurysm. IMPRESSION: Negative MRA of the brain. Electronically signed by: Gloria Baird MD 05/22/23 00:59 AM
--- NOTE | 2023-05-22 01:07 | Magnetic Resonance Report ---
Exam(s): MRI HEAD Without Contrast EXAM: MR Head Without Intravenous Contrast CLINICAL HISTORY: Reason for exam: tia. TECHNIQUE: Magnetic resonance images of the head/brain without intravenous contrast in multiple planes. COMPARISON: Comparison made to prior head CT from May 21, 2023. FINDINGS: Brain: Small right subdural hematoma, measuring 6.2 mm in maximal diameter. Tiny subdural hematoma over the left frontal convexity. Mild nonspecific white matter changes. The flow voids of the base of the brain are intact. No mass. No hemorrhage. No acute infarct. Ventricles: Mild ventriculomegaly. Bones/joints: Unremarkable. No acute fracture. Sinuses: Chronic right ethmoid sinusitis. No acute sinusitis. Mastoid air cells: Unremarkable as visualized. Orbits: Bilateral lens replacements. IMPRESSION: Bilateral subdural hematomas. Recommend short-term interval follow-up to evaluate for stability. Communications: Verify Receipt Electronically signed by: Gloria Baird MD 05/22/23 01:06 AM
[2023-05-22 04:02] LABS: Basophils # (auto) 0.03 K/uL (0.00-0.20); Basophils % (auto) 0.6 %; Eosinophils # (auto) 0.07 K/uL (0.00-0.50); Eosinophils % (auto) 1.3 %; Hematocrit (blood only) 36.5 % (42.0-52.0); Hemoglobin 12.3 g/dl (14.0-18.0); Immature Granulocytes # (auto) 0.02 K/uL (0.01-0.20); Immature Granulocytes % (auto) 0.4 %; Lymphocytes # (auto) 1.33 K/uL (1.20-3.40); Mean Corpuscular Hemoglobin 30.1 pg (25.0-34.0); Mean Corpuscular Hgb Conc 33.7 g/dL (32.0-36.0); Mean Corpuscular Volume 89.2 fL (80.0-100.0); Mean Platelet Volume 8.3 fL (9.4-12.4); Monocytes # (auto) 0.38 K/uL (0.11-0.59); Monocytes % (auto) 7.1 %; Neutrophils # (auto) 3.49 K/uL (1.40-6.50); Neutrophils % (auto) 65.6 %; Platelet Count 159 K/uL (130-400); RDW Coefficient of Variation 12.9 % (11.5-14.5); RDW Standard Deviation 42.1 fL (36.4-46.3); Red Blood Count 4.09 M/uL (4.70-6.10); White Blood Count 5.32 K/ul (4.8-10.8)
[2023-05-22 04:05] LABS: BUN Creatinine Ratio 18.2 (10-20); Calcium 8.8 mg/dl (8.6-10.3); Chol HDL Ratio 3.2 (0-5); Creatinine Clr Calc Pharmacy 52.5 ml/min; Est GFR (African American) 65.1 ml/min; Est GFR (Non-African American) 56.2 ml/min; Potassium 4.2 mmol/L (3.5-5.1)
[2023-05-22] MEDS: AZTREONAM 2,000 MG in DEXTROSE 5% MINI-B 100 ML IV SCH (06:40)
[2023-05-22] MEDS: TACROLIMUS 1 MG CAP PO SCH ×2 (08:49→19:51)
[2023-05-22] MEDS: MYCOPHENOLATE MOFETIL 250 MG CAP PO SCH (08:49)
[2023-05-22] MEDS: METHENAMINE HIPPURATE 1 GM TAB PO SCH (08:49)
[2023-05-22] MEDS: SERTRALINE HCL 50 MG TABLET PO SCH (08:50)
--- NOTE | 2023-05-22 13:44 | Electrocardiogram Report ---
Test Reason : Blood Pressure : / mmHG Vent. Rate : 079 BPM Atrial Rate : 079 BPM P-R Int : 186 ms QRS Dur : 078 ms QT Int : 366 ms P-R-T Axes : 025 -10 044 degrees QTc Int : 419 ms Normal sinus rhythm with occasional Premature atrial complexes Anteroseptal infarct (cited on or before 21-MAY-2023) Abnormal ECG When compared with ECG of 04-MAY-2023 14:38, No significant change was found Confirmed by David Villanueva ([id number]) on 05/22/2023 1:44:11 PM Referred By: REFERRED SELF Confirmed By:David Villanueva
--- NOTE | 2023-05-22 15:35 | Hospitalist Progress Note ---
Date of Service May 22, 2023 Assessment & Plan (1) Encephalopathy: Plan Pt is an 82yoM with PMhx significant for hypertension, end-stage renal disease secondary to polycystic kidney disease status post kidney transplant on immunosuppressive (tacrolimus and CellCept) regimen, DUSTY CPAP noncompliance, recurrent UTIs secondary to incomplete bladder emptying with indwelling Lopez catheter on methenamine suppression Rx, BPH status post surgery, renal cyst, chronic subdural hematoma status post surgery, history of lumbar compression fractures, mood disorder, dementia, chronic anemia (baseline hemoglobin of 12), skin cancer as per records, hx MRSA presenting with acute confusion. Acute metabolic/toxic encephalopathy Hx of dementia Possible TIA Pt brought in due to altered mental status Head CT unremarkable Brain MRI noting chronic/known/improving subdural hematomas. UA suggestive of infection, urine Cx pending Acute on chronic mental status changes likely in setting of UTI Case discussed with pt's neurologist Dr Dhillon, advised that there was no role for Neurology at this time. Comfort Measures/Goals of care discussion broached with Xena about 6pm on 05/21. She wants to discuss this further with children. Delirium precautions. Frequent reorientation, avoid sedating medications as able Continue to monitor Subdural hemorrhages Noted on CT head and MRI S/p surgery with right MMA embolization. Appears to be improved Stable continue with neuro checks CAUTI hx recurrent UTIs UA suggestive of infection, urine Cx pending likely secondary to incomplete bladder emptying with indwelling Lopez catheter on methenamine suppression Rx no sepsis for now on azactam, continue at this time, follow cultures hypertension stable, continue home meds end-stage renal disease secondary to polycystic kidney disease status post kidney transplant on immunosuppressive (tacrolimus and CellCept) regimen DUSTY CPAP noncompliance History BPH status post surgery chronic anemia hemoglobin at baseline Diet HH/pureed DVT prophylaxis. SCDs RE traumatic subdural hematoma Full code Dispo: PT/OT placed Admission and Anticipated Discharge Date Admission Date: May 21, 2023 Subjective Pt was seen while down in the ED. Confused, mumbling. Review of Systems Review of Systems: Unobtainable due to cognitive status Physical Exam Physical Exam: General: confused, mumbling Psych: mood and affect could not be determined Neuro: confused, lethargic HEENT: NC/AT CV: RRR, Normal s1, s2 Resp: no increased effort of breathing Abdomen: . Soft Extremities: fistula noted in left arm Results & Data Results & Data Vital Signs (Past 12 Hours) Vital Signs Pulse Pulse Resp BP Pulse Ox O2 Del Method 05/22/23 14:48 85 18 154/76 H 98 Room Air 05/22/23 08:40 73 18 140/88 98 Room Air 05/22/23 06:59 78 05/22/23 05:00 75 18 05/22/23 04:00 66 15 97 Room Air
[2023-05-22] MEDS: BRIMONIDINE TARTRATE 0.2% 5ML OPB SCH (19:52)
[2023-05-23 06:06] LABS: Basophils # (auto) 0.03 K/uL (0.00-0.20); Basophils % (auto) 0.6 %; Eosinophils # (auto) 0.08 K/uL (0.00-0.50); Eosinophils % (auto) 1.6 %; Hematocrit (blood only) 38.2 % (42.0-52.0); Hemoglobin 12.9 g/dl (14.0-18.0); Immature Granulocytes # (auto) 0.01 K/uL (0.01-0.20); Immature Granulocytes % (auto) 0.2 %; Lymphocytes # (auto) 1.21 K/uL (1.20-3.40); Lymphocytes % (auto) 24.5 %; Mean Corpuscular Hemoglobin 30.1 pg (25.0-34.0); Mean Corpuscular Hgb Conc 33.8 g/dL (32.0-36.0); Mean Platelet Volume 7.9 fL (9.4-12.4); Monocytes # (auto) 0.35 K/uL (0.11-0.59); Monocytes % (auto) 7.1 %; Neutrophils # (auto) 3.26 K/uL (1.40-6.50); Platelet Count 154 K/uL (130-400); RDW Standard Deviation 41.9 fL (36.4-46.3); Red Blood Count 4.29 M/uL (4.70-6.10); White Blood Count 4.94 K/ul (4.8-10.8)
[2023-05-23 06:24] LABS: BUN Creatinine Ratio 15.8 (10-20); Calcium 8.6 mg/dl (8.6-10.3); Creatinine Clr Calc Pharmacy 53.5 ml/min; Est GFR (Non-African American) 60.4 ml/min; Magnesium 1.7 mg/dl (1.7-2.4); Phosphorus 3.5 mg/dl (2.5-4.9); Potassium 3.8 mmol/L (3.5-5.1)
--- NOTE | 2023-05-23 08:48 | Urology Consultation ---
Date of Consultation May 23, 2023 Assessment & Plan (1) Urinary retention: (2) Acute alteration in mental status: 82 yo/M admitted for altered mental status, generalized weakness, and suspected urinary tract infection. Patient is afebrile and hemodynamically stable Today's labscreatinine 1.14, no leukocytosis Urine culture is prelim w/ pinpoint growth, reincubating Currently on IV aztreonamfollow culture and narrow per sensitivities when available Patient has urinary retention currently managed with indwelling Lopez catheter--continue with Lopez catheter Catheter is exchanged by his nursing facility, last exchange date currently unknown Lopez is patent and draining appropriately Can exchange catheter if due to be changed No acute intervention warranted at this time Recommend treat acute UTI if present Continue with daily methenamine for prevention after acute infection has been treated Continue with medical management per primary service Keep outpatient follow-up with urology as scheduled will sign off, contact our service if any additional questions or concerns History of Present Illness Attending Physician: Anny Woodard MD History of Present Illness This is an 82-year-old male with past medical history of renal transplant, polycystic kidney, urinary retention and chronic indwelling Lopez catheter who was admitted on 05/21/2023 with altered mental status, generalized weakness, and suspected urinary tract infection. Patient presented to the ED from his nursing facility for evaluation of strokelike symptoms. On arrival, he was afebrile and hemodynamically stable. Labs showed creatinine 1.31, WBC 5.74, hemoglobin 12.4. Urinalysis showed turbid urine, 1+ blood, 3+ LE, >30 WBC, 0-4 RBC, 10-20 epithelial cells and 1+ bacteria, calcium oxalate crystals present. Urine culture obtained and pending. He underwent head CT which showed no acute intracranial hemorrhage or infarction. He was treated with IV fluids, magnesium and IV ceftriaxone in the emergency department. He was admitted to the medicine service for altered mental status. Of note, he was hospitalized in January for subdural hematomas after fall. He was recently hospitalized at [facility] from 05/04-05/12/23 for acute on chronic subdural hematoma status post right MMA embolization. Urology consulted for recurrent UTI. Patient is known to our service, follows with Dr. Horne for urinary retention. His office cystoscopy did not show any significant obstruction, poor contractility suspected. Urinary retention has been managed with Lopez catheter exchanged monthly at [facility]. He is on methenamine for prevention of UTIs. Patient seen and examined at bedside. He is awake and sitting up in bed with nurse assisting him with breakfast. He denies pain. He answers questions, but is unable to provide meaningful history. History and ROS largely unobtainable due to cognitive status. Lopez is patent and draining clear yellow urine with minimal sediment. Last catheter exchange date unknown. Allergies Allergy/AdvReac Type Severity Reaction Status Date / Time lisinopril AdvReac Intermediate Cough Verified 05/04/23 19:21 Home Medications Medication Instructions Recorded Confirmed Type brimonidine 0.2 % eye drops 1 drp OPB HS #15 mL 12/01/22 05/21/23 Rx calcium carbonate 200 mg calcium 200 mg PO BIDM 12/02/22 05/21/23 History (500 mg) chewable tablet (Tums) magnesium oxide 400 mg PO QPM 12/02/22 05/21/23 History amlodipine 5 mg tablet 5 mg PO DAILY #90 tabs 01/09/23 05/21/23 Rx methenamine hippurate 1 gram tablet 1 g PO BID #0 tabs 02/06/23 05/21/23 Rx mycophenolate mofetil 250 mg 250 mg PO BID #60 ea 02/10/23 05/21/23 Rx capsule sertraline 50 mg tablet 75 mg PO DAILY 04/17/23 05/21/23 History acetaminophen 325 mg tablet 650 mg PO Q4 PRN Fever Or Pain 05/21/23 05/21/23 History bisacodyl 10 mg rectal suppository 10 mg LA .Q 24 HOURS PRN 05/21/23 05/21/23 History (Dulcolax (bisacodyl)) constipation on day 4 no BM docusate sodium 100 mg capsule 100 mg PO .EVERY 24 HOURS PRN 05/21/23 05/21/23 History (Colace) constipation on day 2 no BM polyethylene glycol 3350 17 17 g PO .EVERY 24 HOURS PRN 05/21/23 05/21/23 History gram/dose oral powder (Miralax) constipation 3rd day of no BM tacrolimus 1 mg capsule, 1 mg PO QPM 05/21/23 05/21/23 History immediate-release tacrolimus 1 mg capsule, 2 mg PO QAM 05/21/23 05/21/23 History immediate-release Patient History Medical History Hypertension Subdural hematoma Chronic indwelling Lopez catheter Mild cognitive impairment Pre-syncope Hx of basal cell carcinoma AV fistula LEFT ARM>HAD DIALYSIS BEFORE KIDNEY *2006 TX FOR 5 MONTHS Hx of squamous cell carcinoma Unintentional weight loss Hearing deficit Primary hypertension Prediabetes Obstructive sleep apnea unable to tolerate cpap machine. Depression Hypercholesterolemia Polycystic kidney Surgical History Renal transplant recipient History of cataract surgery RT/LEFT H/O right inguinal hernia repair [place] [facility] [place] History of colonoscopy Status post Mohs surgery H/O transurethral resection of prostate Family History Grandfather (Maternal) Cardiac disorder Grandmother (Paternal) Cardiac disorder Grandfather (Paternal) Cardiac disorder Mother Cardiac disorder Hypertension Grandmother (Maternal) Diabetes Brother Hypertension Sister Renal transplant, status post Hypertension Other No family history of adverse response to anesthesia Social History Smoking Status: Former smoker Tobacco Type: Cigarettes Second Hand Exposure: No; Do You Dip or Chew Tobacco: No; Tobacco Cessation Education Requested by Patient: No Hx Alcohol Use: No Hx Substance Use: No Preferred Language: Eritrean Communication Ability: Impaired Visual Impairment: No Limitations Hearing Ability: Normal Rn Labor And Delivery Required: No Beliefs That Will Affect Care: None marital status: Current Living Situation: Alone current occupational status: retired How many Children do You have: 2 Other Information That Helps Us Care for You: No Feels Safe at Home: Yes Diet: regular during the past year weight has: decreased > 10 lbs Dental Care, Regularly: No Seatbelt Use: always Sunscreen Use: Yes Assistive Devices: Glasses Review of Systems Review of Systems: Unobtainable due to cognitive status Physical Exam Constitutional: no acute distress Respiratory: normal respiratory effort; no respiratory distress and no labored breathing Gastrointestinal (Abdomen): Inspection/Auscultation: abdomen normal to inspection; abdomen not distended Musculoskeletal: Head/Neck/Chest: normocephalic Neurologic: awake Psychiatric: Orientation: oriented to person Genitourinary: Lopez patent and draining clear yellow urine with minimal sediment Results & Data Vital Signs (Past 12 Hours) Vital Signs Temp Pulse Pulse Resp BP BP BP 05/23/23 07:52 37.3 C 72 16 149/84 H 05/23/23 07:45 68 05/23/23 05:00 68 18 147/72 H 05/23/23 03:56 36.5 C 67 18 145/68 H 05/22/23 23:18 05/22/23 23:02 36.6 C 76 18 147/64 H 05/22/23 22:02 73 Pulse Ox Pulse Ox O2 Del Method O2 Del Method 05/23/23 07:52 95 Room Air 05/23/23 07:45 05/23/23 05:00 99 Room Air 05/23/23 03:56 100 Room Air 05/22/23 23:18 98 Room Air 05/22/23 23:02 98 Room Air 05/22/23 22:02 PG Care Time/CCT Total # of Minutes Spent Total Time Spent with Patient: Total time spent is greater than 50% in coordination of care (as documented) at patient's floor/unit and/or counseling patient: Coding Level of Care Code 54534 INT INP/OBS CARE 2/55MIN Diagnoses Urinary retention R33.9 Acute alteration in mental status R41.82
--- NOTE | 2023-05-23 12:38 | Hospitalist Progress Note ---
Date of Service May 23, 2023 Assessment & Plan (1) Encephalopathy: Plan Pt is an 82yoM with PMhx significant for hypertension, end-stage renal disease secondary to polycystic kidney disease status post kidney transplant on immunosuppressive (tacrolimus and CellCept) regimen, DUSTY CPAP noncompliance, recurrent UTIs secondary to incomplete bladder emptying with indwelling Lopez catheter on methenamine suppression Rx, BPH status post surgery, renal cyst, chronic subdural hematoma status post surgery, history of lumbar compression fractures, mood disorder, dementia, chronic anemia (baseline hemoglobin of 12), skin cancer as per records, hx MRSA presenting with acute confusion. Acute metabolic/toxic encephalopathy Hx of dementia Possible TIA Pt brought in due to altered mental status Head CT unremarkable Brain MRI noting chronic/known/improving subdural hematomas. UA suggestive of infection, urine Cx growing sumaya glabarata Acute on chronic mental status changes likely in setting of UTI Case discussed with pt's neurologist Dr Dhillon, advised that there was no role for Neurology at this time. Comfort Measures/Goals of care discussion broached with pt's Xena about 6pm on 05/21. She wants to discuss this further with children. Delirium precautions. Frequent reorientation, avoid sedating medications as able Continue to monitor Subdural hemorrhages Noted on CT head and MRI S/p surgery with right MMA embolization. Appears to be improved Stable continue with neuro checks CAUTI hx recurrent UTIs Funguria UA suggestive of infection, urine Cx growing sumaya glabarata likely secondary to incomplete bladder emptying with chronic indwelling Lopez catheter on methenamine suppression Rx no sepsis for now on azactam, continue at this time, follow cultures Per pt's , full treatment Discussed with pharmacy ([facility]) on 05/22- started on caspofungin in setting of pt being immunosuppressed at this time but med also intereacts with home Tacrolimus, decreases level Pharmacy recommending switch to something like amphotericin B (which is more toxic to pt ) vs, having to deal with low tacro levels which unfortunately are difficult to track inpatient Consider further discussion with of benefit of Rx vs. risks hypertension stable, continue home meds end-stage renal disease secondary to polycystic kidney disease status post kidney transplant on immunosuppressive (tacrolimus and CellCept) regimen DUSTY CPAP noncompliance History BPH status post surgery chronic anemia hemoglobin at baseline Diet HH/pureed DVT prophylaxis. SCDs RE traumatic subdural hematoma Full code Dispo: PT/OT placed- recommending acute rehab Admission and Anticipated Discharge Date Admission Date: May 21, 2023 Subjective Pt was seen in the AM. Responsive, but words hard to make out. updated in the evening over the phone. Would like everything done at this time for pt. States that SHE would like the updates and do not give medical updates to the sons listed in the chart. Would like specific instructions about bag and catheter management. Review of Systems Review of Systems: All systems reviewed & are unremarkable except as noted in Subjective Physical Exam Physical Exam: General: confused, mumbling Psych: mood and affect could not be determined Neuro: confused, lethargic HEENT: NC/AT CV: RRR, Normal s1, s2 Resp: no increased effort of breathing Abdomen: . Soft Extremities: fistula noted in left arm Results & Data Results & Data Vital Signs (Past 12 Hours) Vital Signs Temp Pulse Pulse Resp BP BP BP 05/23/23 11:14 36.5 C 70 14 149/79 H 05/23/23 07:52 37.3 C 72 16 149/84 H 05/23/23 07:45 68 05/23/23 05:00 68 18 147/72 H 05/23/23 03:56 36.5 C 67 18 145/68 H Pulse Ox O2 Del Method 05/23/23 11:14 95 Room Air 05/23/23 07:52 95 Room Air 05/23/23 07:45 05/23/23 05:00 99 Room Air 05/23/23 03:56 100 Room Air
[2023-05-23] MEDS ORDERED: FLUCONAZOLE 100 MG TAB PO SCH (21:20)
[2023-05-23] MEDS: CASPOFUNGIN 70 MG in SODIUM CHLORIDE 0.9% 250 ML IV ONE (22:49)
[2023-05-24 07:28] LABS: Basophils # (auto) 0.03 K/uL (0.00-0.20); Basophils % (auto) 0.7 %; Eosinophils # (auto) 0.09 K/uL (0.00-0.50); Eosinophils % (auto) 2.1 %; Immature Granulocytes # (auto) 0.01 K/uL (0.01-0.20); Immature Granulocytes % (auto) 0.2 %; Lymphocytes % (auto) 16.2 %; Mean Corpuscular Hemoglobin 29.9 pg (25.0-34.0); Mean Corpuscular Hgb Conc 33.3 g/dL (32.0-36.0); Mean Corpuscular Volume 89.6 fL (80.0-100.0); Monocytes # (auto) 0.33 K/uL (0.11-0.59); Monocytes % (auto) 7.6 %; Neutrophils # (auto) 3.17 K/uL (1.40-6.50); Neutrophils % (auto) 73.2 %; Platelet Count 120 K/uL (130-400); RDW Coefficient of Variation 12.9 % (11.5-14.5); RDW Standard Deviation 42.1 fL (36.4-46.3); Red Blood Count 4.02 M/uL (4.70-6.10); White Blood Count 4.33 K/ul (4.8-10.8)
[2023-05-24 07:40] LABS: Calcium 8.4 mg/dl (8.6-10.3); Creatinine Clr Calc Pharmacy 53.3 ml/min; Est GFR (African American) 77.3 ml/min; Est GFR (Non-African American) 66.7 ml/min; Magnesium 1.7 mg/dl (1.7-2.4); Phosphorus 3.5 mg/dl (2.5-4.9); Potassium 3.8 mmol/L (3.5-5.1)
--- NOTE | 2023-05-24 15:10 | Hospitalist Progress Note ---
Date of Service May 24, 2023 Assessment & Plan (1) Encephalopathy: Plan Mr. Marie is an 82 year old male with PMhx significant for hypertension, end- stage renal disease secondary to polycystic kidney disease status post kidney transplant on immunosuppressive (tacrolimus and CellCept) regimen, DUSTY CPAP noncompliance, recurrent UTIs secondary to incomplete bladder emptying with indwelling Sherwood catheter on methenamine suppression Rx, BPH status post surgery, renal cyst, chronic subdural hematoma status post surgery, history of lumbar compression fractures, mood disorder, dementia, chronic anemia (baseline hemoglobin of 12), skin cancer as per records, hx MRSA presenting with acute confusion. Per record review: Recently admitted to [facility] because of acute on chronic subdural hematoma on 05/05/23 and underwent right MMA embolization on 05/09/23 without complications. His aspirin was discontinued indefinitely given fall risk with h/o SDH. His atorvastatin as also discontinued as deemed unnecessary due to age and polypharmacy. 45 minute conversation had with over phone. Discussed need for infectious disease to help determine if sumaya is pathogenic v colonization. Discussed that sherwood exchanged today. Noted that it is not ideal to treat this particular organism given the DDI with Tacro and the nephrotoxic profile of some agents. verbalized understanding. does state she is unsure about his mentation and if it "fluctuates"--would anticipate element of waxing/waning delirium given degree of neurologic insult. Plan to investigate other sources of AMS. #Acute metabolic/toxic encephalopathy #Chronic subdural hematoma now s/p right MMA embolization #Dementia Pt brought in due to altered mental status Head CT unremarkable Brain MRI noting chronic/known/improving subdural hematomas. UA suggestive of infection, urine Cx growing sumaya glabrata MRSA nare negative ASA and statin discontinued recently Per prior physician: Case discussed with pt's neurologist Dr Dhillon, advised that there was no role for Neurology at this time. Delirium precautions. Frequent reorientation, avoid sedating medications as able Continue to monitor Plan for B12, folate, TSH in am for reversible causes EEG ordered Tacro levels in am #Candiduria concern for CAUTI #hx recurrent UTIs #Urinary retention s/o chronic sherwood UA suggestive of infection, urine Cx growing sumaya glabarata likely secondary to incomplete bladder emptying with chronic indwelling Sherwood catheter on methenamine suppression Rx prior to arrival no sepsis for now Hold aztreonam given no bacterial growth on UA, continue at this time, follow cultures Hold MMF iso of infection concern Sumaya glabrata--options limited if considered pathogenic; caspofungin doesn't cover organism well; plan for ID consult to discuss treat v not treat given immunocompromised status -Spoke with Dr Zabala over [employer]--sumaya is rarely treated unless is corresponding candidemia/abscess formation -Hold abx at this time--monitor 48 hours, resume MMF and regimen if stable #hypertension stable, home amlodipine held (5mg) resume prn #end-stage renal disease s/p cadaver renal transplant , CKD III #chronic immunosuppression secondary to polycystic kidney disease status post kidney transplant on immunosuppressive (tacrolimus and CellCept) regimen Hold MMF given concern for infection given multiple medication adjustments, plan for 8 am Tacro trough -Renal function stable at this time #DUSTY CPAP noncompliance #Moderate protein leida malnutrition BMI 19 Nutrition consult #chronic normocytic anemia hemoglobin at baseline Diet HH/pureed DVT prophylaxis. SCDs RE traumatic subdural hematoma Full code Dispo: PT/OT placed- recommending acute rehab Admission and Anticipated Discharge Date Admission Date: May 21, 2023 Subjective NAEO Alert to name. States he is in "dentist office" then recorrected to saying he was in hospital. Denies any pain or other concerns; Spoke to on phone: she reports patient was interactive on Monday but then acted like "he does when he has a UTI" also admits she doesn't seem him often and doesn''t talk to him much outside of few visits at the nursing facilty Physical Exam Constitutional: thin, frail gentleman, weak appearing Respiratory: normal respiratory effort, lungs clear to auscultation Cardiovascular: RRR, no murmur, no edema Gastrointestinal (Abdomen): normal bowel sounds, soft, nontender, no hepatosplenomegaly Musculoskeletal: thin frail gentleman Results & Data Results & Data Vital Signs (Past 12 Hours) Vital Signs Temp Pulse Pulse Resp BP Pulse Ox O2 Del Method 05/24/23 15:00 36.2 C L 75 18 135/61 97 Room Air 05/24/23 11:16 36.6 C 74 18 137/73 97 Room Air 05/24/23 10:42 Room Air 05/24/23 07:51 36.4 C L 74 18 137/77 97 Room Air 05/24/23 07:26 67 Laboratory Results Short CBC 05/24/23 Range/Units 07:08 WBC 4.33 L (4.8-10.8) K/ul Hgb 12.0 L (14.0-18.0) g/dl Hct 36.0 L (42.0-52.0) % Plt Count 120 L (130-400) K/uL BMP 05/24/23 07:08 Sodium 135 L Potassium 3.8 Chloride 105 Carbon Dioxide 26 BUN 21 Creatinine 1.05 Glucose 85 Calcium 8.4 L Diagnostic Findings Reviewed earlier Imaging from admission MRA brain negative MRI Brain: Brain: Small right subdural hematoma, measuring 6.2 mm in maximal diameter. Tiny subdural hematoma over the left frontal convexity. Mild nonspecific white matter changes. The flow voids of the base of the brain are intact. No mass. No hemorrhage. No acute infarct. Ventricles: Mild ventriculomegaly. Bones/joints: Unremarkable. No acute fracture. Sinuses: Chronic right ethmoid sinusitis. No acute sinusitis. Mastoid air cells: Unremarkable as visualized. Orbits: Bilateral lens replacements. Medications Administered Home Medications Medication Instructions Recorded Confirmed Last Taken brimonidine 0.2 % eye drops 1 drp OPB HS #15 mL 12/01/22 05/21/23 05/03/23 calcium carbonate 200 mg calcium 200 mg PO BIDM 12/02/22 05/21/23 05/04/23 (500 mg) chewable tablet (Tums) magnesium oxide 400 mg PO QPM 12/02/22 05/21/23 05/03/23 amlodipine 5 mg tablet 5 mg PO DAILY #90 tabs 01/09/23 05/21/23 05/04/23 methenamine hippurate 1 gram tablet 1 g PO BID #0 tabs 02/06/23 05/21/23 05/04/23 mycophenolate mofetil 250 mg 250 mg PO BID #60 ea 02/10/23 05/21/23 05/04/23 capsule sertraline 50 mg tablet 75 mg PO DAILY 04/17/23 05/21/23 05/04/23 am acetaminophen 325 mg tablet 650 mg PO Q4 PRN Fever Or Pain 05/21/23 05/21/23 Unknown bisacodyl 10 mg rectal suppository 10 mg MI .Q 24 HOURS PRN 05/21/23 05/21/23 Unknown (Dulcolax (bisacodyl)) constipation on day 4 no BM docusate sodium 100 mg capsule 100 mg PO .EVERY 24 HOURS PRN 05/21/23 05/21/23 Unknown (Colace) constipation on day 2 no BM polyethylene glycol 3350 17 17 g PO .EVERY 24 HOURS PRN 05/21/23 05/21/23 Unknown gram/dose oral powder (Miralax) constipation 3rd day of no BM tacrolimus 1 mg capsule, 1 mg PO QPM 05/21/23 05/21/23 Unknown immediate-release tacrolimus 1 mg capsule, 2 mg PO QAM 05/21/23 05/21/23 Unknown immediate-release Active Medications Generic Name Dose Route Start Last Admin Trade Name Freq PRN Reason Stop Dose Admin Brimonidine Tartrate 1 drops 05/22/23 21:00 05/23/23 19:52 Brimonidine Tartrate 0.2% 5ml OPB 06/21/23 20:59 1 drops HS NAZANIN Administration Methenamine Hippurate 1 gm 05/22/23 09:00 05/24/23 08:04 Methenamine Hippurate 1 Gm Tab PO 06/21/23 08:59 1 gm BID NAZANIN Administration Mycophenolate Mofetil 250 mg 05/22/23 09:00 05/24/23 08:03 Mycophenolate Mofetil 250 Mg Cap PO 06/21/23 08:59 250 mg BID NAZANIN Administration Sertraline HCl 75 mg 05/22/23 09:00 05/24/23 08:04 Sertraline Hcl 50 Mg Tablet PO 06/21/23 08:59 75 mg DAILY NAZANIN Administration Tacrolimus 2 mg 05/22/23 09:00 05/24/23 08:04 Tacrolimus 1 Mg Cap PO 06/21/23 08:59 2 mg QAM NAZANIN Administration Tacrolimus 1 mg 05/22/23 21:00 05/23/23 19:51 Tacrolimus 1 Mg Cap PO 06/21/23 20:59 1 mg QPM NAZANIN Administration
[2023-05-24] MEDS ORDERED: CASPOFUNGIN 50 MG in SODIUM CHLORIDE 0.9% 250 ML IV SCH (21:00)
--- NOTE | 2023-05-24 21:01 | XRay Report ---
XR KUB/Abdomen 1 view CLINICAL HISTORY: stool burden TECHNIQUE: 1 view of the abdomen was obtained. Comparison: Comparison is made to CT abdomen pelvis 05/04/2023 FINDINGS: Lung bases are unremarkable. Degenerative changes are seen in the visualized skeleton. The bowel gas pattern is nonobstructive. Inspissated stool is seen in the rectum which may represent impaction. IMPRESSION: Inspissated stool in the rectum may represent impaction. ACT 112: Negative or not required by law. Electronically signed by: Kevin Saleh M.D. 05/24/2023 8:58 PM
[2023-05-24] MEDS: MAGNESIUM OXIDE 400 MG TAB PO SCH (21:40)
[2023-05-25 09:02] LABS: Hematocrit (blood only) 35.7 % (42.0-52.0); Hemoglobin 11.8 g/dl (14.0-18.0); Mean Corpuscular Hemoglobin 29.6 pg (25.0-34.0); Mean Corpuscular Hgb Conc 33.1 g/dL (32.0-36.0); Mean Corpuscular Volume 89.5 fL (80.0-100.0); Mean Platelet Volume 8.2 fL (9.4-12.4); Platelet Count 123 K/uL (130-400); RDW Standard Deviation 42.3 fL (36.4-46.3); Red Blood Count 3.99 M/uL (4.70-6.10); White Blood Count 4.03 K/ul (4.8-10.8)
[2023-05-25 09:21] LABS: Albumin Level 3.7 gm/dl (3.4-5.0); BUN Creatinine Ratio 20.4 (10-20); Bilirubin Direct 0.1 mg/dl (0-0.2); Bilirubin,Total 0.8 mg/dl (0.2-1.0); Calcium 8.7 mg/dl (8.6-10.3); Creatinine Clr Calc Pharmacy 50.6 ml/min; Est GFR (African American) 70.8 ml/min; Est GFR (Non-African American) 61.1 ml/min; Magnesium 1.7 mg/dl (1.7-2.4); Phosphorus 3.2 mg/dl (2.5-4.9); Total Protein 6.2 gm/dl (6.0-8.3)
[2023-05-25 09:35] LABS: Thyroid Stimulating Hormone 1.605 uIu/ml (0.300-4.500)
[2023-05-25 09:45] LABS: Folate (Folic Acid),Ser orPlas 15.39 ng/ml (>5.38)
[2023-05-25] MEDS: SODIUM CHLORIDE 0.9% IV STA (10:20)
[2023-05-25] MEDS: LEVETIRACETAM IV STA (10:20)
[2023-05-25] MEDS: bisacodyL 10 MG SUPP PR STA (10:35)
--- NOTE | 2023-05-25 10:50 | Neurology Consultation ---
Date of Consultation May 25, 2023 Assessment & Plan (1) Encephalopathy: Presume multifactorial encephalopathy. Unclear tremor/myoclonus episode this morning seems to have resolved. Seizure is less likely but reasonable to treat with Keppra 500mg BID and obtain an EEG in the meantime. Tacro can cause a course tremor that appears similar to myoclonus, perhaps this is the cause, the tacro level is still pending. -- Routine EEG -- Tacro level -- Keppra 500mg BID for now -- Delirium precautions, out of bed to chair, natural light, sleep hygiene at night Telehealth Consultation Telehealth Information Telehealth Information: I performed this visit using a real-time telehealth connection between my location and the patients location ([facility]). After connecting through interactive tele-video, patient was identified by name and date of and/or wristband check.Patient (or authorized healthcare corporate representative) was informed that this was a telemedicine visit and it was being conducted confidentially over secure lines. My office door was closed and no one else was present in the room with me.Patient (or authorized healthcare corporate representative) provided consent to proceed with the visit, expressed an understanding of privacy and security of the telemedicine visit, and gave permission to have a hospital corporate representative in the room in order to assist with the visit and to conduct portions of the visit, as needed. I informed the patient (or authorized healthcare corporate representative) that I reviewed their record and presented the opportunity for them to ask any questions regarding the visit today. The patient agreed to participate. History of Present Illness Reason for Consultation: Tremors/myoclonus Requesting Physician: Dr. Walton Attending Physician: Kathleen Walton MD History of Present Illness Kevin Marie is an 82 yo M presenting with altered mental status in the setting of dementia. Intial concern for UTI though likely colonized per ID. He also has a history of subdural with MMA embo at [place]. No prior history of seizures. This morning he was found to have a tremor and myoclonic jerks. Per nursing description this was a large amplitude fast movement but it since stopped after his head CT today and is not present while he sleeps. No report of difficulty sleeping last night, no new medications today other than keppra which was given after the movements had already stopped. Allergies Allergy/AdvReac Type Severity Reaction Status Date / Time lisinopril AdvReac Intermediate Cough Verified 05/04/23 19:21 Home Medications Medication Instructions Recorded Confirmed Type brimonidine 0.2 % eye drops 1 drp OPB HS #15 mL 12/01/22 05/21/23 Rx calcium carbonate 200 mg calcium 200 mg PO BIDM 12/02/22 05/21/23 History (500 mg) chewable tablet (Tums) magnesium oxide 400 mg PO QPM 12/02/22 05/21/23 History amlodipine 5 mg tablet 5 mg PO DAILY #90 tabs 01/09/23 05/21/23 Rx methenamine hippurate 1 gram tablet 1 g PO BID #0 tabs 02/06/23 05/21/23 Rx mycophenolate mofetil 250 mg 250 mg PO BID #60 ea 02/10/23 05/21/23 Rx capsule sertraline 50 mg tablet 75 mg PO DAILY 04/17/23 05/21/23 History acetaminophen 325 mg tablet 650 mg PO Q4 PRN Fever Or Pain 05/21/23 05/21/23 His tory bisacodyl 10 mg rectal suppository 10 mg NV .Q 24 HOURS PRN 05/21/23 05/21/23 History (Dulcolax (bisacodyl)) constipation on day 4 no BM docusate sodium 100 mg capsule 100 mg PO .EVERY 24 HOURS PRN 05/21/23 05/21/23 History (Colace) constipation on day 2 no BM polyethylene glycol 3350 17 17 g PO .EVERY 24 HOURS PRN 05/21/23 05/21/23 History gram/dose oral powder (Miralax) constipation 3rd day of no BM tacrolimus 1 mg capsule, 1 mg PO QPM 05/21/23 05/21/23 History immediate-release tacrolimus 1 mg capsule, 2 mg PO QAM 05/21/23 05/21/23 History immediate-release Patient History Medical History Hypertension Subdural hematoma Chronic indwelling Lopez catheter Mild cognitive impairment Pre-syncope Hx of basal cell carcinoma AV fistula LEFT ARM>HAD DIALYSIS BEFORE KIDNEY *2005 TX FOR 5 MONTHS Hx of squamous cell carcinoma Unintentional weight loss Hearing deficit Primary hypertension Prediabetes Obstructive sleep apnea unable to tolerate cpap machine. Depression Hypercholesterolemia Polycystic kidney Surgical History Renal transplant recipient History of cataract surgery RT/LEFT H/O right inguinal hernia repair S/P kidney [place] [facility] [place]/t polycystic kidney History of colonoscopy Status post Mohs surgery H/O transurethral resection of prostate Family History Grandfather (Maternal) Cardiac disorder Grandmother (Paternal) Cardiac disorder Grandfather (Paternal) Cardiac disorder Mother Cardiac disorder Hypertension Grandmother (Maternal) Diabetes Brother Hypertension Sister Renal transplant, status post Hypertension Other No family history of adverse response to anesthesia Social History Smoking Status: Former smoker Tobacco Type: Cigarettes Second Hand Exposure: No; Do You Dip or Chew Tobacco: No; Tobacco Cessation Education Requested by Patient: No Hx Alcohol Use: No Hx Substance Use: No Preferred Language: Tamazight Communication Ability: Impaired Visual Impairment: No Limitations Hearing Ability: Normal [employer] Att[employer] Required: No Beliefs That Will Affect Care: None marital status: Current Living Situation: Alone current occupational status: retired How many Children do You have: 2 Other Information That Helps Us Care for You: No Feels Safe at Home: Yes Diet: regular during the past year weight has: decreased > 10 lbs Dental Care, Regularly: No Seatbelt Use: always Sunscreen Use: Yes Assistive Devices: Glasses Review of Systems Unable to obtain, AMS Physical Exam Alerts briefly to voice, no verbal output, face appears symmetric, eyes midline. Antigravity strength without abnormal movements or tremor noted. Results & Data Vital Signs (Past 12 Hours) Vital Signs Temp Pulse Pulse Resp BP BP Pulse Ox 05/25/23 09:15 36.8 C 91 H 20 130/69 97 05/25/23 08:44 75 167/80 H 05/25/23 08:06 36.9 C 74 16 98/53 L 93 05/25/23 07:29 84 05/25/23 04:02 36.4 C L 69 20 141/66 H 98 05/25/23 00:00 05/24/23 23:29 36.3 C L 69 20 153/68 H 98 Pulse Ox O2 Del Method O2 Del Method 05/25/23 09:15 Room Air 05/25/23 08:44 05/25/23 08:06 Room Air 05/25/23 07:29 05/25/23 04:02 Room Air 05/25/23 00:00 98 Room Air 05/24/23 23:29 Room Air Laboratory Results Abnormal lab results 05/25/23 Range/Units 08:32 WBC 4.03 L (4.8-10.8) K/ul RBC 3.99 L (4.70-6.10) M/uL Hgb 11.8 L (14.0-18.0) g/dl Hct 35.7 L (42.0-52.0) % Plt Count 123 L (130-400) K/uL MPV 8.2 L (9.4-12.4) fL Chloride 108 H (98-107) mmol/L BUN/Creatinine Ratio 20.4 H (10-20) Diagnostic Findings MRI brain and CT head - unremarkable
--- NOTE | 2023-05-25 11:10 | Hospitalist Progress Note ---
Date of Service May 25, 2023 Assessment & Plan (1) Encephalopathy: Plan Mr. Marie is an 82 year old male with PMhx significant for hypertension, end- stage renal disease secondary to polycystic kidney disease status post kidney transplant on immunosuppressive (tacrolimus and CellCept) regimen, DUSTY CPAP noncompliance, recurrent UTIs secondary to incomplete bladder emptying with indwelling Sherwood catheter on methenamine suppression Rx, BPH status post surgery, renal cyst, chronic subdural hematoma status post surgery, history of lumbar compression fractures, mood disorder, dementia, chronic anemia (baseline hemoglobin of 12), skin cancer as per records, hx MRSA presenting with acute confusion. Per record review: Recently admitted to [facility] because of acute on chronic subdural hematoma on 05/05/23 and underwent right MMA embolization on 05/09/23 without complications. His aspirin was discontinued indefinitely given fall risk with h/o SDH. His atorvastatin as also discontinued as deemed unnecessary due to age and polypharmacy. On 05/23, a 45 minute conversation had with over phone. Discussed need for infectious disease to help determine if sumaya is pathogenic v colonization. Discussed that sherwood exchanged today. Noted that it is not ideal to treat this particular organism given the DDI with Tacro and the nephrotoxic profile of some agents. verbalized understanding. does state she is unsure about his mentation and if it "fluctuates"--would anticipate element of waxing/waning delirium given degree of neurologic insult. Plan to investigate other sources of AMS. TSH, B12, Folate all WNL. Sherwood exchanged and repeat UA ordered. #Acute metabolic/toxic encephalopathy #Myoclonic like activity #Chronic subdural hematoma now s/p right MMA embolization #Dementia Pt brought in due to altered mental status Head CT unremarkable Brain MRI noting chronic/known/improving subdural hematomas. UA suggestive of infection, urine Cx growing sumaya glabrata MRSA nare negative ASA and statin discontinued recently Per prior physician: Case discussed with pt's neurologist Dr Dhillon, advised that there was no role for Neurology at this time. Delirium precautions. Frequent reorientation, avoid sedating medications as able Continue to monitor B12: 429, Folate: 15.39, TSH 1.6 EEG pending read Tacro levels in am, will return in 24-48 hours Constipation on KUB--likely contributing to delirium--aggressive bowel regimen -Continue keppra 500mg BID IV (s/p 1350 this am) -Neurology consult -Follow up EEG,; potential that tacrolimus is source of tremors--if EEG reveals slowing and tacro returns high, likely source #Candiduria concern for CAUTI #hx recurrent UTIs #Urinary retention s/o chronic sherwood UA suggestive of infection, urine Cx growing sumaya glabarata likely secondary to incomplete bladder emptying with chronic indwelling Sherwood catheter on methenamine suppression Rx prior to arrival no sepsis for now Hold aztreonam given no bacterial growth on UA, continue at this time, follow cultures Hold MMF iso of infection concern Sumaya glabrata--options limited if considered pathogenic; caspofungin doesn't cover organism well; plan for ID consult to discuss treat v not treat given immunocompromised status -Spoke with Dr Zabala over [employer]--sumaya is rarely treated unless is cor responding candidemia/abscess formation -Hold abx at this time--monitor 48 hours, resume MMF and regimen if stable -Repeat UA -If negative, resume MMF and methenamine #hypertension stable, home amlodipine held (5mg) resume prn #end-stage renal disease s/p cadaver renal transplant , CKD III #chronic immunosuppression secondary to polycystic kidney disease status post kidney transplant on immunosuppressive (tacrolimus and CellCept) regimen Hold MMF given concern for infection given multiple medication adjustments, plan for 8 am Tacro trough -Renal function stable at this time #DUSTY CPAP noncompliance #Moderate protein leida malnutrition BMI 19 Nutrition consult #chronic normocytic anemia hemoglobin at baseline Diet HH/pureed DVT prophylaxis. SCDs RE traumatic subdural hematoma Full code Dispo: PT/OT placed- recommending acute rehab Admission and Anticipated Discharge Date Admission Date: May 21, 2023 Subjective More encephalopathic this morning Follows minimal commands Myoclonic like activity noted--CT ordered, neurology consult, IV keppra Physical Exam Constitutional: lethargic/encephalopathic gentleman Respiratory: normal respiratory effort, lungs clear to auscultation Cardiovascular: RRR, no murmur, no edema Gastrointestinal (Abdomen): firm, no apparent grimace Neurologic: muscle twitching and large extremity tremor/jerking Results & Data Results & Data Vital Signs (Past 12 Hours) Vital Signs Temp Pulse Pulse Resp BP BP Pulse Ox 05/25/23 09:15 36.8 C 91 H 20 130/69 97 05/25/23 08:44 75 167/80 H 05/25/23 08:06 36.9 C 74 16 98/53 L 93 05/25/23 07:29 84 05/25/23 04:02 36.4 C L 69 20 141/66 H 98 05/25/23 00:00 05/24/23 23:29 36.3 C L 69 20 153/68 H 98 Pulse Ox O2 Del Method O2 Del Method 05/25/23 09:15 Room Air 05/25/23 08:44 05/25/23 08:06 Room Air 05/25/23 07:29 05/25/23 04:02 Room Air 05/25/23 00:00 98 Room Air 05/24/23 23:29 Room Air Laboratory Results Short CBC 05/25/23 Range/Units 08:32 WBC 4.03 L (4.8-10.8) K/ul Hgb 11.8 L (14.0-18.0) g/dl Hct 35.7 L (42.0-52.0) % Plt Count 123 L (130-400) K/uL BMP 05/25/23 08:32 Sodium 139 Potassium 4.0 Chloride 108 H Carbon Dioxide 26 BUN 23 Creatinine 1.13 Glucose 83 Calcium 8.7 Liver Function 05/25/23 Range/Units 08:32 Total Bilirubin 0.8 (0.2-1.0) mg/dl Direct Bilirubin 0.1 (0-0.2) mg/dl AST 18 (13-39) U/L ALT 12 (7-52) U/L Alkaline Phosphatase 97 (34-104) U/L Albumin 3.7 (3.4-5.0) gm/dl Medications Administered Home Medications Medication Instructions Recorded Confirmed Last Taken brimonidine 0.2 % eye drops 1 drp OPB HS #15 mL 12/01/22 05/21/23 05/03/23 calcium carbonate 200 mg calcium 200 mg PO BIDM 12/02/22 05/21/23 05/04/23 (500 mg) chewable tablet (Tums) magnesium oxide 400 mg PO QPM 12/02/22 05/21/23 05/03/23 amlodipine 5 mg tablet 5 mg PO DAILY #90 tabs 01/09/23 05/21/23 05/04/23 methenamine hippurate 1 gram tablet 1 g PO BID #0 tabs 02/06/23 05/21/23 05/04/23 mycophenolate mofetil 250 mg 250 mg PO BID #60 ea 02/10/23 05/21/23 05/04/23 capsule sertraline 50 mg tablet 75 mg PO DAILY 04/17/23 05/21/23 05/04/23 am acetaminophen 325 mg tablet 650 mg PO Q4 PRN Fever Or Pain 05/21/23 05/21/23 Unknown bisacodyl 10 mg rectal suppository 10 mg NC .Q 24 HOURS PRN 05/21/23 05/21/23 Unknown (Dulcolax (bisacodyl)) constipation on day 4 no BM docusate sodium 100 mg capsule 100 mg PO .EVERY 24 HOURS PRN 05/21/23 05/21/23 Unknown (Colace) constipation on day 2 no BM polyethylene glycol 3350 17 17 g PO .EVERY 24 HOURS PRN 05/21/23 05/21/23 Unknown gram/dose oral powder (Miralax) constipation 3rd day of no BM tacrolimus 1 mg capsule, 1 mg PO QPM 05/21/23 05/21/23 Unknown immediate-release tacrolimus 1 mg capsule, 2 mg PO QAM 05/21/23 05/21/23 Unknown immediate-release Active Medications Generic Name Dose Route Start Last Admin Trade Name Freq PRN Reason Stop Dose Admin Brimonidine Tartrate 1 drops 05/22/23 21:00 05/24/23 21:54 Brimonidine Tartrate 0.2% 5ml OPB 06/21/23 20:59 1 drops HS NAZANIN Administration Magnesium Oxide 400 mg 05/24/23 21:00 05/24/23 21:40 Magnesium Oxide 400 Mg Tab PO 06/23/23 20:59 400 mg QPM NAZANIN Administration Methenamine Hippurate 1 gm 05/22/23 09:00 05/25/23 09:31 Methenamine Hippurate 1 Gm Tab PO 06/21/23 08:59 Not Given BID NAZANIN Mycophenolate Mofetil 250 mg 05/22/23 09:00 05/24/23 08:03 Mycophenolate Mofetil 250 Mg Cap PO 06/21/23 08:59 250 mg BID NAZANIN Administration Sertraline HCl 75 mg 05/22/23 09:00 05/25/23 09:31 Sertraline Hcl 50 Mg Tablet PO 06/21/23 08:59 Not Given DAILY NAZANIN Tacrolimus 2 mg 05/22/23 09:00 05/25/23 09:31 Tacrolimus 1 Mg Cap PO 06/21/23 08:59 Not Given QAM NAZANIN Tacrolimus 1 mg 05/22/23 21:00 05/24/23 21:41 Tacrolimus 1 Mg Cap PO 06/21/23 20:59 1 mg QPM NAZANIN Administration
--- NOTE | 2023-05-25 11:45 | CT Scan Report ---
HEAD CT NONCONTRAST CT DOSE: 1499.97 mGy.cm HISTORY: Altered mental status. Confusion. TECHNIQUE: Multiaxial CT images of the head were performed without the use of intravenous contrast. A utomated exposure control was utilized for this study. A dose lowering technique was utilized adheri ng to the principles of ALARA. Comparison: Brain MRI 05/21/2023. PET CT 05/04/2023. Findings: A few partially opacified right ethmoid air cells, unchanged. The mastoid air cells are yasmany ar. The calvarium and skull base are intact. Bilateral basal ganglia calcifications are again noted. There is no mass, midline shift, acute infarct. Mild atrophy and microvascular ischemic changes are a gain noted. Small bifrontal subdural hematomas are similar in size. These appear to be subacute to ch ronic. No new areas of acute hemorrhage identified within the brain. The dominant right frontal subdu ral hematoma continues to measure up to 8 mm in size. Impression: 1. Small bifrontal subdural hematomas are similar in size. These likely represent subacute to chronic subdural hematomas. No new areas of acute hemorrhage identified within the brain. 2. No midline shift. 3. Atrophy and microvascular ischemic changes again noted. ACT 112: Negative or not required by law. Electronically signed by: Constantin Reeves M.D. 05/25/2023 11:44 AM
--- NOTE | 2023-05-25 13:55 | Infectious Disease Consult ---
Date of Service May 25, 2023 Telehealth Information I performed this visit using a real-time telehealth connection between my location and the patients location (). After connecting through interactive tele-video, patient was identified by name and date of and/or wristband check.Patient (or authorized healthcare utility sales representative) was informed that this was a telemedicine visit and it was being conducted confidentially over secure lines. My office door was closed and no on e else was present in the room with me.Patient (or authorized healthcare utility sales representative) provided consent to proceed with the visit, expressed an understanding of privacy and security of the telemedicine visit, and gave permission to have a hospital utility sales representative in the room in order to assist with the visit and to conduct portions of the visit, as needed. I informed the patient (or authorized healthcare utility sales representative) that I reviewed their record and presented the opportunity for them to ask any questions regarding the visit today. The patient agreed to participate. Assessment & Plan (1) Encephalopathy: (2) Generalized muscle weakness: (3) Urinary tract infection: Plan Pt is an 82 M from [facility] with PMHx of hypertension, end-stage renal disease secondary to polycystic kidney disease status post kidney transplant on immunosuppressive (tacrolimus and CellCept) regimen, DUSTY CPAP noncompliance, recurrent UTIs secondary to incomplete bladder emptying with indwelling Lopez catheter on methenamine suppression Rx, BPH status post surgery, renal cyst, chronic subdural hematoma status post surgery, history of lumbar compression fractures, mood disorder, dementia, chronic anemia (baseline hemoglobin of 12), skin cancer as per records, hx MRSA, past tobacco abuse who presented to [facility] on 05/21/2023 for AMS. Per notes and chart review, pt noted to have a facial droop and leaning more to the right side and somewhat confused more than usual as per family. Pt given Ceftriaxone and improved per notes. Infectious work-up showed urine culture (+) sumaya glabrata. Pt now on Caspofungin IV. Concern for UTI. Plan: - Recommend stopping all antimicrobials. Unlikely that sumaya is the cause of UTI. Pt is currently back to baseline regarding mental status. - we will sign off, no need for ID clinic appointment, please call tiger text with any additional concerns. History of Present Illness History of Present Illness Reason: treat sumaya in urine given immunosuppression? Pt is an 82 M from [facility] with PMHx of hypertension, end-stage renal disease secondary to polycystic kidney disease status post kidney transplant on immunosuppressive (tacrolimus and CellCept) regimen, DUSTY CPAP noncompliance, recurrent UTIs secondary to incomplete bladder emptying with indwelling Lopez catheter on methenamine suppression Rx, BPH status post surgery, renal cyst, chronic subdural hematoma status post surgery, history of lumbar compression fractures, mood disorder, dementia, chronic anemia (baseline hemoglobin of 12), skin cancer as per records, hx MRSA, past tobacco abuse who presented to [facility] on 05/21/2023 for AMS. Per notes and chart review, pt noted to have a facial droop and leaning more to the right side and somewhat confused more than usual as per family. Pt given Ceftriaxone and improved per notes. Infectious work-up showed urine culture (+) sumaya glabrata. Pt now on Caspofungin IV. ID consulted for evaluation and management. Allergies Allergy/AdvReac Type Severity Reaction Status Date / Time lisinopril AdvReac Intermediate Cough Verified 05/04/23 19:21 Home Medications Medication Instructions Recorded Confirmed Type brimonidine 0.2 % eye drops 1 drp OPB HS #15 mL 12/01/22 05/21/23 Rx calcium carbonate 200 mg calcium 200 mg PO BIDM 12/02/22 05/21/23 History (500 mg) chewable tablet (Tums) magnesium oxide 400 mg PO QPM 12/02/22 05/21/23 History amlodipine 5 mg tablet 5 mg PO DAILY #90 tabs 01/09/23 05/21/23 Rx methenamine hippurate 1 gram tablet 1 g PO BID #0 tabs 02/06/23 05/21/23 Rx mycophenolate mofetil 250 mg 250 mg PO BID #60 ea 02/10/23 05/21/23 Rx capsule sertraline 50 mg tablet 75 mg PO DAILY 04/17/23 05/21/23 History acetaminophen 325 mg tablet 650 mg PO Q4 PRN Fever Or Pain 05/21/23 05/21/23 History bisacodyl 10 mg rectal suppository 10 mg DC .Q 24 HOURS PRN 05/21/23 05/21/23 History (Dulcolax (bisacodyl)) constipation on day 4 no BM docusate sodium 100 mg capsule 100 mg PO .EVERY 24 HOURS PRN 05/21/23 05/21/23 History (Colace) constipation on day 2 no BM polyethylene glycol 3350 17 17 g PO .EVERY 24 HOURS PRN 05/21/23 05/21/23 History gram/dose oral powder (Miralax) constipation 3rd day of no BM tacrolimus 1 mg capsule, 1 mg PO QPM 05/21/23 05/21/23 History immediate-release tacrolimus 1 mg capsule, 2 mg PO QAM 05/21/23 05/21/23 History immediate-release Patient History Medical History Hypertension Subdural hematoma Chronic indwelling Lopez catheter Mild cognitive impairment Pre-syncope Hx of basal cell carcinoma AV fistula LEFT ARM>HAD DIALYSIS BEFORE KIDNEY *2005 [place] FOR 5 MONTHS Hx of squamous cell carcinoma Unintentional weight loss Hearing deficit Primary hypertension Prediabetes Obstructive sleep apnea unable to tolerate cpap machine. Depression Hypercholesterolemia Polycystic kidney Surgical History Renal transplant recipient History of cataract surgery RT/LEFT H/O right inguinal hernia repair S/P kidney transplant 2005 at [facility] r/t polycystic kidney History of colonoscopy Status post Mohs surgery H/O transurethral resection of prostate Family History Grandfather (Maternal) Cardiac disorder Grandmother (Paternal) Cardiac disorder Grandfather (Paternal) Cardiac disorder Mother Cardiac disorder Hypertension Grandmother (Maternal) Diabetes Brother Hypertension Sister Renal transplant, status post Hypertension Other No family history of adverse response to anesthesia Social History Smoking Status: Former smoker Tobacco Type: Cigarettes Second Hand Exposure: No; Do You Dip or Chew Tobacco: No; Tobacco Cessation Education Requested by Patient: No Hx Alcohol Use: No Hx Substance Use: No Preferred Language: Sami Communication Ability: Impaired Visual Impairment: No Limitations Hearing Ability: Normal Application Support Administrator Required: No Beliefs That Will Affect Care: None marital status: Current Living Situation: Alone current occupational status: retired How many Children do You have: 2 Other Information That Helps Us Care for You: No Feels Safe at Home: Yes Diet: regular during the past year weight has: decreased > 10 lbs Dental Care, Regularly: No Seatbelt Use: always Sunscreen Use: Yes Assistive Devices: Glasses Review of Systems NA Physical Exam NA Results & Data Vital Signs (Past 12 Hours) Vital Signs Temp Pulse Pulse Resp BP BP Pulse Ox 05/25/23 12:53 05/25/23 11:11 36.7 C 16 153/67 H 97 05/25/23 09:15 36.8 C 91 H 20 130/69 97 05/25/23 08:44 75 167/80 H 05/25/23 08:06 36.9 C 74 16 98/53 L 93 05/25/23 07:29 84 05/25/23 04:02 36.4 C L 69 20 141/66 H 98 O2 Del Method 05/25/23 12:53 Room Air 05/25/23 11:11 Room Air 05/25/23 09:15 Room Air 05/25/23 08:44 05/25/23 08:06 Room Air 05/25/23 07:29 05/25/23 04:02 Room Air Laboratory Results 05/23/23 21:47 Aerobic Blood Culture - Preliminary Blood No growth in Aerobic bottle after 24 hours. Anaerobic Blood Culture - Preliminary No growth in Anaerobic bottle after 24 hours. 05/23/23 21:48 Aerobic Blood Culture - Preliminary Blood No growth in Aerobic bottle after 24 hours. Anaerobic Blood Culture - Preliminary No growth in Anaerobic bottle after 24 hours. 05/23/23 21:47 Fungal Smear - Final Blood Fungal Culture - Pending 05/25/23 08:32 WBC 4.03 L RBC 3.99 L Hgb 11.8 L Hct 35.7 L MCV 89.5 MCH 29.6 MCHC 33.1 RDW Std Deviation 42.3 RDW Coeff of Reema 13.0 Plt Count 123 L MPV 8.2 L Sodium 139 Potassium 4.0 Chloride 108 H Carbon Dioxide 26 Anion Gap 5 BUN 23 Creatinine 1.13 Est Cr Clr Drug Dosing 50.6 Est GFR ( Amer) 70.8 Est GFR (Non-Af Amer) 61.1 BUN/Creatinine Ratio 20.4 H Glucose 83 Calcium 8.7 Phosphorus 3.2 Magnesium 1.7 Total Bilirubin 0.8 Direct Bilirubin 0.1 AST 18 ALT 12 Alkaline Phosphatase 97 Total Protein 6.2 Albumin 3.7 Vitamin B12 429 Folate 15.39 TSH 1.605 Diagnostic Findings 05/23/23 21:47 Aerobic Blood Culture - Preliminary Blood No growth in Aerobic bottle after 24 hours. Anaerobic Blood Culture - Preliminary No growth in Anaerobic bottle after 24 hours. 05/23/23 21:48 Aerobic Blood Culture - Preliminary Blood No growth in Aerobic bottle after 24 hours. Anaerobic Blood Culture - Preliminary No growth in Anaerobic bottle after 24 hours. 05/23/23 21:47 Fungal Smear - Final Blood Fungal Culture - Pending 05/25/23 08:32 WBC 4.03 L RBC 3.99 L Hgb 11.8 L Hct 35.7 L MCV 89.5 MCH 29.6 MCHC 33.1 RDW Std Deviation 42.3 RDW Coeff of Reema 13.0 Plt Count 123 L MPV 8.2 L Sodium 139 Potassium 4.0 Chloride 108 H Carbon Dioxide 26 Anion Gap 5 BUN 23 Creatinine 1.13 Est Cr Clr Drug Dosing 50.6 Est GFR ( Amer) 70.8 Est GFR (Non-Af Amer) 61.1 BUN/Creatinine Ratio 20.4 H Glucose 83 Calcium 8.7 Phosphorus 3.2 Magnesium 1.7 Total Bilirubin 0.8 Direct Bilirubin 0.1 AST 18 ALT 12 Alkaline Phosphatase 97 Total Protein 6.2 Albumin 3.7 Vitamin B12 429 Folate 15.39 TSH 1.605 Medications Administered Home Medications Medication Instructions Recorded Confirmed Last Taken brimonidine 0.2 % eye drops 1 drp OPB HS #15 mL 12/01/22 05/21/23 05/03/23 calcium carbonate 200 mg calcium 200 mg PO BIDM 12/02/22 05/21/23 05/04/23 (500 mg) chewable tablet (Tums) magnesium oxide 400 mg PO QPM 12/02/22 05/21/23 05/03/23 amlodipine 5 mg tablet 5 mg PO DAILY #90 tabs 01/09/23 05/21/23 05/04/23 methenamine hippurate 1 gram tablet 1 g PO BID #0 tabs 02/06/23 05/21/23 05/04/23 mycophenolate mofetil 250 mg 250 mg PO BID #60 ea 02/10/23 05/21/23 05/04/23 capsule sertraline 50 mg tablet 75 mg PO DAILY 04/17/23 05/21/23 05/04/23 am acetaminophen 325 mg tablet 650 mg PO Q4 PRN Fever Or Pain 05/21/23 05/21/23 Unknown bisacodyl 10 mg rectal suppository 10 mg DC .Q 24 HOURS PRN 05/21/23 05/21/23 Unknown (Dulcolax (bisacodyl)) constipation on day 4 no BM docusate sodium 100 mg capsule 100 mg PO .EVERY 24 HOURS PRN 05/21/23 05/21/23 Unknown (Colace) constipation on day 2 no BM polyethylene glycol 3350 17 17 g PO .EVERY 24 HOURS PRN 05/21/23 05/21/23 Unknown gram/dose oral powder (Miralax) constipation 3rd day of no BM tacrolimus 1 mg capsule, 1 mg PO QPM 05/21/23 05/21/23 Unknown immediate-release tacrolimus 1 mg capsule, 2 mg PO QAM 05/21/23 05/21/23 Unknown immediate-release Active Medications Generic Name Dose Route Start Last Admin Trade Name Freq PRN Reason Stop Dose Admin Brimonidine Tartrate 1 drops 05/22/23 21:00 05/24/23 21:54 Brimonidine Tartrate 0.2% 5ml OPB 06/21/23 20:59 1 drops HS NAZANIN Administration Magnesium Oxide 400 mg 05/24/23 21:00 05/24/23 21:40 Magnesium Oxide 400 Mg Tab PO 06/23/23 20:59 400 mg QPM NAZANIN Administration Methenamine Hippurate 1 gm 05/22/23 09:00 05/25/23 09:31 Methenamine Hippurate 1 Gm Tab PO 06/21/23 08:59 Not Given BID NAZANIN Mycophenolate Mofetil 250 mg 05/22/23 09:00 05/24/23 08:03 Mycophenolate Mofetil 250 Mg Cap PO 06/21/23 08:59 250 mg BID NAZANIN Administration Sertraline HCl 75 mg 05/22/23 09:00 05/25/23 09:31 Sertraline Hcl 50 Mg Tablet PO 06/21/23 08:59 Not Given DAILY NAZANIN Tacrolimus 2 mg 05/22/23 09:00 05/25/23 09:31 Tacrolimus 1 Mg Cap PO 06/21/23 08:59 Not Given QAM NAZANIN Tacrolimus 1 mg 05/22/23 21:00 05/24/23 21:41 Tacrolimus 1 Mg Cap PO 06/21/23 20:59 1 mg QPM NAZANIN Administration (3) Urinary tract infection Hematuria presence: without hematuria Urinary tract infection type: site unspecified Qualified Code(s): N39.0 - Urinary tract infection, site not specified
[2023-05-25 18:30] LABS: Appearance Urine Clear (Clear); Bacteria Urine Automated Negative (Negative); Bilirubin Urine Negative (Negative); Blood Urine Negative (Negative); Color Urine Yellow; Epithelial Cell Urine Auto 20-30 /lpf (0-5); Glucose Urine UA Negative (Negative); Ketones Urine Negative (Negative); Leukocyte Esterase Urine Trace (Negative); Nitrite Urine Negative (Negative); Protein Urine Negative (Negative); RBC Urine Automated 0-4 /hpf (0-4); Specific Gravity Urine 1.013 (1.000-1.030); Urobilinogen Urine Negative (Negative); pH Urine 7.5 (4.5-7.5)
--- NOTE | 2023-05-25 20:18 | Electroencephalogram ---
EEG Procedure Note Date of Service May 25, 2023 Start / End Times Start Time: 07:21 End Time: 07:41 Referring Physician Kathleen Diaz History A 82 year old male with myoclonus or involuntary movements. EEG performed for evaluation of epileptiform acitvity. Home Medication List Medication Instructions Recorded Confirmed Type brimonidine 0.2 % eye drops 1 drp OPB HS #15 mL 12/01/22 05/21/23 Rx calcium carbonate 200 mg calcium 200 mg PO BIDM 12/02/22 05/21/23 History (500 mg) chewable tablet (Tums) magnesium oxide 400 mg PO QPM 12/02/22 05/21/23 History amlodipine 5 mg tablet 5 mg PO DAILY #90 tabs 01/09/23 05/21/23 Rx methenamine hippurate 1 gram tablet 1 g PO BID #0 tabs 02/06/23 05/21/23 Rx mycophenolate mofetil 250 mg 250 mg PO BID #60 ea 02/10/23 05/21/23 Rx capsule sertraline 50 mg tablet 75 mg PO DAILY 04/17/23 05/21/23 History acetaminophen 325 mg tablet 650 mg PO Q4 PRN Fever Or Pain 05/21/23 05/21/23 History bisacodyl 10 mg rectal suppository 10 mg DC .Q 24 HOURS PRN 05/21/23 05/21/23 History (Dulcolax (bisacodyl)) constipation on day 4 no BM docusate sodium 100 mg capsule 100 mg PO .EVERY 24 HOURS PRN 05/21/23 05/21/23 History (Colace) constipation on day 2 no BM polyethylene glycol 3350 17 17 g PO .EVERY 24 HOURS PRN 05/21/23 05/21/23 History gram/dose oral powder (Miralax) constipation 3rd day of no BM tacrolimus 1 mg capsule, 1 mg PO QPM 05/21/23 05/21/23 History immediate-release tacrolimus 1 mg capsule, 2 mg PO QAM 05/21/23 05/21/23 History immediate-release Inpatient Medication List Brimonidine Tartrate (Brimonidine Tartrate 0.2% 5ml) 1 drops OPB HS NAZANIN Stop: 06/21/23 20:59 Last Admin: 05/24/23 21:54 Dose: 1 drops Documented By: Admin: 05/23/23 19:52 Dose: 1 drops Documented By: Admin: 05/22/23 19:52 Dose: 1 drops Documented By: ANABELA Magnesium Oxide (Magnesium Oxide 400 Mg Tab) 400 mg PO QPM NAZANIN Stop: 06/23/23 20:59 Last Admin: 05/24/23 21:40 Dose: 400 mg Documented By: COSME Methenamine Hippurate (Methenamine Hippurate 1 Gm Tab) 1 gm PO BID NAZANIN Stop: 06/21/23 08:59 Last Admin: 05/25/23 09:31 Dose: Not Given Documented By: Admin: 05/24/23 21:40 Dose: 1 gm Documented By: Admin: 05/24/23 08:04 Dose: 1 gm Documented By: Admin: 05/23/23 19:51 Dose: 1 gm Documented By: Admin: 05/23/23 08:36 Dose: 1 gm Documented By: Admin: 05/22/23 19:51 Dose: 1 gm Documented By: Admin: 05/22/23 08:49 Dose: 1 gm Documented By: NYLA Mycophenolate Mofetil (Mycophenolate Mofetil 250 Mg Cap) 250 mg PO BID NAZANIN Stop: 06/21/23 08:59 Last Admin: 05/24/23 08:03 Dose: 250 mg Documented By: Admin: 05/23/23 19:51 Dose: 250 mg Documented By: Admin: 05/23/23 08:36 Dose: 250 mg Documented By: Admin: 05/22/23 19:51 Dose: 250 mg Documented By: Admin: 05/22/23 08:49 Dose: 250 mg Documented By: NYLA Sertraline HCl (Sertraline Hcl 50 Mg Tablet) 75 mg PO DAILY NAZANIN Stop: 06/21/23 08:59 Last Admin: 05/25/23 09:31 Dose: Not Given Documented By: Admin: 05/24/23 08:04 Dose: 75 mg Documented By: Admin: 05/23/23 08:36 Dose: 75 mg Documented By: Admin: 05/22/23 08:50 Dose: 75 mg Documented By: NYLA Tacrolimus (Tacrolimus 1 Mg Cap) 2 mg PO QAM NAZANIN Stop: 06/21/23 08:59 Last Admin: 05/25/23 09:31 Dose: Not Given Documented By: Admin: 05/24/23 08:04 Dose: 2 mg Documented By: Admin: 05/23/23 08:37 Dose: 2 mg Documented By: Admin: 05/22/23 08:49 Dose: 2 mg Documented By: NYLA Tacrolimus (Tacrolimus 1 Mg Cap) 1 mg PO QPM NAZANIN Stop: 06/21/23 20:59 Last Admin: 05/24/23 21:41 Dose: 1 mg Documented By: Admin: 05/23/23 19:51 Dose: 1 mg Documented By: Admin: 05/22/23 19:51 Dose: 1 mg Documented By: ANABELA Discontinued Medications Bisacodyl (Bisacodyl 10 Mg Supp) 10 mg DC NOW STA Stop: 05/25/23 09:19 Last Admin: 05/25/23 10:35 Dose: 10 mg Documented By: MARY Ceftriaxone Sodium (Rocephin) 2,000 mg in 50 mls @ 100 mls/hr IV NOW STA Stop: 05/21/23 20:18 Last Infusion: 05/21/23 20:42 Dose: Infused Documented By: Admin: 05/21/23 20:09 Dose: 100 mls/hr Documented By: ALEE Magnesium Sulfate/Dextrose (Magnesium Sulfate / D5w) 1 gm in 100 mls @ 50 mls/hr IV ONE ONE Stop: 05/21/23 22:19 Last Infusion: 05/22/23 01:11 Dose: Infused Documented By: Admin: 05/21/23 20:45 Dose: 50 mls/hr Documented By: ALEE Sodium Chloride (Nss) 500 mls @ 60 mls/hr IV .Q8H20M ONE Stop: 05/22/23 04:40 Last Infusion: 05/22/23 07:29 Dose: Infused Documented By: Admin: 05/21/23 20:45 Dose: 60 mls/hr Documented By: ALEE Aztreonam 2,000 mg/ Dextrose 100 mls @ 100 mls/hr IV ONE ONE Stop: 05/21/23 22:29 Last Infusion: 05/22/23 01:10 Dose: Infused Documented By: Admin: 05/21/23 21:55 Dose: 100 mls/hr Documented By: ALEE Aztreonam 2,000 mg/ Dextrose 100 mls @ 100 mls/hr IV Q8H [facility] Stop: 06/01/23 05:59 Last Infusion: 05/24/23 07:20 Dose: Infused Documented By: Admin: 05/24/23 05:45 Dose: 100 mls/hr Documented By: Infusion: 05/23/23 20:58 Dose: Infused Documented By: Admin: 05/23/23 19:52 Dose: 100 mls/hr Documented By: Infusion: 05/23/23 14:45 Dose: Infused Documented By: Admin: 05/23/23 13:14 Dose: 100 mls/hr Documented By: Infusion: 05/23/23 08:23 Dose: Infused Documented By: Infusion: 05/23/23 07:13 Dose: 100 mls/hr Documented By: Infusion: 05/23/23 05:30 Dose: 0 mls/hr Documented By: Admin: 05/23/23 05:12 Dose: 100 mls/hr Documented By: Infusion: 05/22/23 20:50 Dose: Infused Documented By: Admin: 05/22/23 19:50 Dose: 100 mls/hr Documented By: Infusion: 05/22/23 16:31 Dose: Infused Documented By: Admin: 05/22/23 15:03 Dose: 100 mls/hr Documented By: Infusion: 05/22/23 07:43 Dose: Infused Documented By: Admin: 05/22/23 06:40 Dose: 100 mls/hr Documented By: JOE Caspofungin 70 mg/ Sodium (Chloride) 260 mls @ 260 mls/hr IV NOW ONE Stop: 05/23/23 23:14 Last Infusion: 05/24/23 00:13 Dose: Infused Documented By: Admin: 05/23/23 22:49 Dose: 260 mls/hr Documented By: NDL Levetiracetam 1,350 mg/ Sodium (Chloride) 263.5 mls @ 999 mls/hr IV NOW STA Stop: 05/25/23 09:36 Last Infusion: 05/25/23 10:36 Dose: Infused Documented By: Admin: 05/25/23 10:20 Dose: 999 mls/hr Documented By: AMS Description This is a 21 electrode EEG with a single channel dedicated to limited EKG. The electrodes were placed in accordance with the International 10-20 system. REPORT: At the onset of the EEG the patient is in an altered mental state. The background is continuous and symmetric. There is a loss of the normal anterior to posterior gradient. The background consist of generalized polymorphic delta activity. Interpretation IMPRESSION: This is an abnormal routine EEG in a patient with altered mentation due to severe background slowing suggestive of a non specific encephalopathy. No epileptiform activity is seen.
[2023-05-25] MEDS: DOCUSATE SODIUM 100 MG CAP PO SCH (20:56)
[2023-05-25] MEDS: levETIRAcetam IV 500 MG in SODIUM CHLOR 0.9% MINI-B 100 ML IV SCH (20:58)
[2023-05-26 06:24] LABS: Hemoglobin 11.9 g/dl (14.0-18.0); Mean Corpuscular Hemoglobin 30.4 pg (25.0-34.0); Mean Corpuscular Volume 86.7 fL (80.0-100.0); Mean Platelet Volume 8.3 fL (9.4-12.4); Platelet Count 128 K/uL (130-400); RDW Coefficient of Variation 13.1 % (11.5-14.5); RDW Standard Deviation 41.1 fL (36.4-46.3); Red Blood Count 3.92 M/uL (4.70-6.10); White Blood Count 3.89 K/ul (4.8-10.8)
[2023-05-26 06:48] LABS: BUN Creatinine Ratio 20.4 (10-20); Calcium 8.9 mg/dl (8.6-10.3); Creatinine Clr Calc Pharmacy 54.6 ml/min; Est GFR (African American) 79.1 ml/min; Est GFR (Non-African American) 68.3 ml/min; Magnesium 1.7 mg/dl (1.7-2.4); Potassium 3.8 mmol/L (3.5-5.1)
[2023-05-26] MEDS: POLYETHYLENE (MIRALAX) 17 GM PACK PO SCH (10:52)
--- NOTE | 2023-05-26 13:38 | Hospitalist Progress Note ---
Date of Service May 26, 2023 Assessment & Plan (1) Encephalopathy: Plan Mr. Marie is an 82 year old male with PMhx significant for hypertension, end- stage renal disease secondary to polycystic kidney disease status post kidney transplant on immunosuppressive (tacrolimus and CellCept) regimen, DUSTY CPAP noncompliance, recurrent UTIs secondary to incomplete bladder emptying with indwelling Sherwood catheter on methenamine suppression Rx, BPH status post surgery, renal cyst, chronic subdural hematoma status post surgery, history of lumbar compression fractures, mood disorder, dementia, chronic anemia (baseline hemoglobin of 12), skin cancer as per records, hx MRSA presenting with acute confusion. Per record review: Recently admitted to [facility] because of acute on chronic subdural hematoma on 05/05/23 and underwent right MMA embolization on 05/09/23 without complications. His aspirin was discontinued indefinitely given fall risk with h/o SDH. His atorvastatin as also discontinued as deemed unnecessary due to age and polypharmacy. On 05/23, a 45 minute conversation had with over phone. Discussed need for infectious disease to help determine if sumaya is pathogenic v colonization. Discussed that sherwood exchanged today. Noted that it is not ideal to treat this particular organism given the DDI with Tacro and the nephrotoxic profile of some agents. verbalized understanding. does state she is unsure about his mentation and if it "fluctuates"--would anticipate element of waxing/waning delirium given degree of neurologic insult. Plan to investigate other sources of AMS. TSH, B12, Folate all WNL. Sherwood exchanged and repeat UA not suggestive of infection. #Severe constipation -likely source of encephalopathy--as constipation improved, patient improved #Acute metabolic/toxic encephalopathy *improving #Myoclonic like activity #Chronic subdural hematoma now s/p right MMA embolization #Dementia Pt brought in due to altered mental status Head CT unremarkable Brain MRI noting chronic/known/improving subdural hematomas. UA suggestive of infection, urine Cx growing sumaya glabrata MRSA nare negative ASA and statin discontinued recently Per prior physician: Case discussed with pt's neurologist Dr Dhillon, advised that there was no role for Neurology at this time. Delirium precautions. Frequent reorientation, avoid sedating medications as able Continue to monitor B12: 429, Folate: 15.39, TSH 1.6 EEG pending read Tacro levels pending , will return in 24-48 hours Constipation on KUB--likely contributing to delirium--aggressive bowel regimen, BM on 05/24 x multiple -Continue keppra 500mg BID IV (s/p 1350 this am) -->transition to PO -Neurology consult -Follow up EEG,; potential that tacrolimus is source of tremors--if EEG reveals slowing and tacro returns high, likely source #Candiduria concern for CAUTI #hx recurrent UTIs #Urinary retention s/o chronic sherwood UA suggestive of infection, urine Cx growing sumaya glabarata likely secondary to incomplete bladder emptying with chronic indwelling Sherwood catheter on methenamine suppression Rx prior to arrival no sepsis for now Hold aztreonam given no bacterial growth on UA, continue at this time, follow cultures Hold MMF iso of infection concern Sumaya glabrata--options limited if considered pathogenic; caspofungin doesn't cover organism well; plan for ID consult to discuss treat v not treat given immunocompromised status -Spoke with Dr Zabala over [employer]--sumaya is rarely treated unless is corresponding candidemia/abscess formation -Hold abx at this time--monitor 48 hours, resume MMF and regimen if stable -Repeat UA--negative -Continue MMF and methenamine #hypertension stable, home amlodipine held (5mg) resume prn #end-stage renal disease s/p cadaver renal transplant , CKD III #chronic immunosuppression secondary to polycystic kidney disease status post kidney transplant on immunosuppressive (tacrolimus and CellCept) regimen Hold MMF given concern for infection given multiple medication adjustments, plan for 8 am Tacro trough -Renal function stable at this time #DUSTY CPAP noncompliance #Moderate protein leida malnutrition BMI 19 Nutrition consult #chronic normocytic anemia hemoglobin at baseline Diet HH/pureed DVT prophylaxis. SCDs RE traumatic subdural hematoma Full code Dispo: PT/OT placed- recommending acute rehab Admission and Anticipated Discharge Date Admission Date: May 21, 2023 Subjective Patient evaluated at bedside Answering questions appropriately, conversational, reports not remembering the last few days but states that he is much better overall Physical Exam Constitutional: WD/WN, vitals as above Respiratory: normal respiratory effort, lungs clear to auscultation Cardiovascular: RRR, no murmur, no edema Gastrointestinal (Abdomen): normal bowel sounds, soft, nontender, no hepatosplenomegaly Results & Data Results & Data Vital Signs (Past 12 Hours) Vital Signs Temp Pulse Pulse Resp BP BP Pulse Ox 03/29/24 11:37 36.5 C 74 16 147/65 H 96 05/26/23 08:00 63 05/26/23 07:51 36.4 C L 69 16 158/68 H 99 05/26/23 04:06 36.9 C 62 18 126/72 96 O2 Del Method 05/26/23 11:37 Room Air 05/26/23 08:00 05/26/23 07:51 Room Air 05/26/23 04:06 Room Air Laboratory Results Short CBC 05/26/23 Range/Units 06:05 WBC 3.89 L (4.8-10.8) K/ul Hgb 11.9 L (14.0-18.0) g/dl Hct 34.0 L (42.0-52.0) % Plt Count 128 L (130-400) K/uL BMP 05/26/23 06:05 Sodium 139 Potassium 3.8 Chloride 108 H Carbon Dioxide 26 BUN 21 Creatinine 1.03 Glucose 84 Calcium 8.9 Urine 05/25/23 Range/Units Unknown Urine Color Yellow Urine Appearance Clear (Clear) Urine pH 7.5 (4.5-7.5) Ur Specific [place] 1.013 (1.000-1.030) Urine Protein Negative (Negative) Urine Glucose (UA) Negative (Negative) Medications Administered Home Medications Medication Instructions Recorded Confirmed Last Taken brimonidine 0.2 % eye drops 1 drp OPB HS #15 mL 12/01/22 05/21/23 05/03/23 calcium carbonate 200 mg calcium 200 mg PO BIDM 12/02/22 05/21/23 05/04/23 (500 mg) chewable tablet (Tums) magnesium oxide 400 mg PO QPM 12/02/22 05/21/23 05/03/23 amlodipine 5 mg tablet 5 mg PO DAILY #90 tabs 01/09/23 05/21/23 05/04/23 methenamine hippurate 1 gram tablet 1 g PO BID #0 tabs 02/06/23 05/21/23 05/04/23 mycophenolate mofetil 250 mg 250 mg PO BID #60 ea 02/10/23 05/21/23 05/04/23 capsule sertraline 50 mg tablet 75 mg PO DAILY 04/17/23 05/21/23 05/04/23 am acetaminophen 325 mg tablet 650 mg PO Q4 PRN Fever Or Pain 05/21/23 05/21/23 Unknown bisacodyl 10 mg rectal suppository [address] .Q 24 HOURS PRN 05/21/23 05/21/23 Unknown (Dulcolax (bisacodyl)) constipation on day 4 no BM docusate sodium 100 mg capsule 100 mg PO .EVERY 24 HOURS PRN 05/21/23 05/21/23 Unknown (Colace) constipation on day 2 no BM polyethylene glycol 3350 17 17 g PO .EVERY 24 HOURS PRN 05/21/23 05/21/23 Unknown gram/dose oral powder (Miralax) constipation 3rd day of no BM tacrolimus 1 mg capsule, 1 mg PO QPM 05/21/23 05/21/23 Unknown immediate-release tacrolimus 1 mg capsule, 2 mg PO QAM 05/21/23 05/21/23 Unknown immediate-release Active Medications Generic Name Dose Route Start Last Admin Trade Name Freq PRN Reason Stop Dose Admin Brimonidine Tartrate 1 drops 05/22/23 21:00 05/25/23 20:55 Brimonidine Tartrate 0.2% 5ml OPB 06/21/23 20:59 1 drops HS NAZANIN Administration Docusate Sodium 100 mg 05/25/23 21:00 05/26/23 10:52 Docusate Sodium 100 Mg Cap PO 06/24/23 20:59 100 mg BID NAZANIN Administration Magnesium Oxide 400 mg 05/24/23 21:00 05/25/23 20:56 Magnesium Oxide 400 Mg Tab PO 06/23/23 20:59 400 mg QPM NAZANIN Administration Methenamine Hippurate 1 gm 05/22/23 09:00 05/26/23 10:52 Methenamine Hippurate 1 Gm Tab PO 06/21/23 08:59 1 gm BID NAZANIN Administration Mycophenolate Mofetil 250 mg 05/22/23 09:00 05/26/23 10:52 Mycophenolate Mofetil 250 Mg Cap PO 06/21/23 08:59 250 mg BID NAZANIN Administration Polyethylene Glycol 17 gm 05/26/23 09:00 05/26/23 10:52 Polyethylene (Miralax) 17 Gm Pack PO 06/25/23 08:59 17 gm DAILY NAZANIN Administration Sertraline HCl 75 mg 05/22/23 09:00 05/26/23 10:51 Sertraline Hcl 50 Mg Tablet PO 06/21/23 08:59 75 mg DAILY NAZANIN Administration Tacrolimus 2 mg 05/22/23 09:00 05/26/23 10:51 Tacrolimus 1 Mg Cap PO 06/21/23 08:59 2 mg QAM NAZANIN Administration Tacrolimus 1 mg 05/22/23 21:00 05/25/23 20:57 Tacrolimus 1 Mg Cap PO 06/21/23 20:59 1 mg QPM NAZANIN Administration
[2023-05-26] MEDS: levETIRAcetam 500 MG TAB PO SCH (21:34)
--- NOTE | 2023-05-27 12:14 | Hospitalist Progress Note ---
Date of Service May 27, 2023 Assessment & Plan (1) Encephalopathy: Plan Mr. Marie is an 82 year old male with PMhx significant for hypertension, end- stage renal disease secondary to polycystic kidney disease status post kidney transplant on immunosuppressive (tacrolimus and CellCept) regimen, DUSTY CPAP noncompliance, recurrent UTIs secondary to incomplete bladder emptying with indwelling [place] catheter on methenamine suppression Rx, BPH status post surgery, renal cyst, chronic subdural hematoma status post surgery, history of lumbar compression fractures, mood disorder, dementia, chronic anemia (baseline hemoglobin of 12), skin cancer as per records, hx MRSA presenting with acute confusion. Per record review: Recently admitted to [facility] because of acute on chronic subdural hematoma on 05/05/23 and underwent right MMA embolization on 05/09/23 without complications. His aspirin was discontinued indefinitely given fall risk with h/o SDH. His atorvastatin as also discontinued as deemed unnecessary due to age and polypharmacy. On 05/23, a 45 minute conversation had with over phone. Discussed need for infectious disease to help determine if sumaya is pathogenic v colonization. Discussed that sherwood exchanged today. Noted that it is not ideal to treat this particular organism given the DDI with Tacro and the nephrotoxic profile of some agents. verbalized understanding. does state she is unsure about his mentation and if it "fluctuates"--would anticipate element of waxing/waning delirium given degree of neurologic insult. Plan to investigate other sources of AMS. TSH, B12, Folate all WNL. Sherwood exchanged and repeat UA not suggestive of infection. #Severe constipation -likely source of encephalopathy--as constipation improved, patient improved -At baseline per son #Acute metabolic/toxic encephalopathy *resolved #Myoclonic like activity #Chronic subdural hematoma now s/p right MMA embolization #Dementia Pt brought in due to altered mental status Head CT unremarkable Brain MRI noting chronic/known/improving subdural hematomas. UA suggestive of infection, urine Cx growing sumaya glabrata--do not treat per ID MRSA nare negative ASA and statin discontinued recently Per prior physician: Case discussed with pt's neurologist Dr Dhillon, advised that there was no role for Neurology at this time. Delirium precautions. Frequent reorientation, avoid sedating medications as able Continue to monitor B12: 429, Folate: 15.39, TSH 1.6 EEG diffuse slow wave, no epileptiform activity Tacro levels pending , will return in 24-48 hours Constipation on KUB--likely contributing to delirium--aggressive bowel regimen, BM on 05/24 x multiple -Continue keppra 500mg BID PO -Neurology consult -Follow up EEG,; potential that tacrolimus is source of tremors--if EEG reveals slowing and tacro returns high, likely source; if not potential 2/2 hematomas -OP neurology follow up #Candiduria concern for CAUTI *ruled out #hx recurrent UTIs #Urinary retention s/o chronic sherwood UA suggestive of infection, urine Cx growing sumaya glabarata likely secondary to incomplete bladder emptying with chronic indwelling Sher[place] catheter on methenamine suppression Rx prior to arrival no sepsis for now Hold aztreonam given no bacterial growth on UA, continue at this time, follow cultures Hold MMF iso of infection concern Sumaya glabrata--options limited if considered pathogenic; caspofungin doesn't cover organism well; plan for ID consult to discuss treat v not treat given immunocompromised status -Spoke with Dr Zabala over [employer]--sumaya is rarely treated unless is corresponding candidemia/abscess formation -Repeat UA--negative -Continue MMF and methenamine Remained stable over 48 hours off antibiotics. #hypertension stable, home amlodipine held (5mg) resume prn #end-stage renal disease s/p cadaver renal transplant , CKD III #chronic immunosuppression secondary to polycystic kidney disease status post kidney transplant on immunosuppressive (tacrolimus and CellCept) re gimen Hold MMF given concern for infection given multiple medication adjustments, plan for 8 am Tacro trough -Renal function stable at this time #DUSTY CPAP noncompliance #Moderate protein leida malnutrition BMI 19 Nutrition consult #chronic normocytic anemia hemoglobin at baseline Diet HH/pureed DVT prophylaxis. SCDs RE traumatic subdural hematoma Full code Dispo: PT/OT placed- recommending acute rehab Admission and Anticipated Discharge Date Admission Date: May 21, 2023 Subjective No acute events overnight Denies any acute symptoms or concerns Physical Exam Constitutional: WD/WN, vitals as above Respiratory: normal respiratory effort, lungs clear to auscultation Cardiovascular: RRR, no murmur, no edema Results & Data Results & Data Vital Signs (Past 12 Hours) Vital Signs Temp Pulse Pulse Resp BP BP Pulse Ox 05/27/23 11:35 36.5 C 74 20 145/78 H 98 05/27/23 10:32 05/27/23 07:58 36.5 C 63 16 184/67 H 96 05/27/23 07:27 57 L 05/27/23 03:02 36.2 C L 68 18 132/72 98 05/27/23 00:47 83 O2 Del Method 05/27/23 11:35 Room Air 05/27/23 10:32 Room Air 05/27/23 07:58 Room Air 05/27/23 07:27 05/27/23 03:02 Room Air 05/27/23 00:47 Medications Administered Home Medications Medication Instructions Recorded Confirmed Last Taken brimonidine 0.2 % eye drops 1 drp OPB HS #15 mL 12/01/22 05/21/23 05/03/23 calcium carbonate 200 mg calcium 200 mg PO BIDM 12/02/22 05/21/23 05/04/23 (500 mg) chewable tablet (Tums) magnesium oxide 400 mg PO QPM 12/02/22 05/21/23 05/03/23 amlodipine 5 mg tablet 5 mg PO DAILY #90 tabs 01/09/23 05/21/23 05/04/23 methenamine hippurate 1 gram tablet 1 g PO BID #0 tabs 02/06/23 05/21/23 05/04/23 mycophenolate mofetil 250 mg 250 mg PO BID #60 ea 02/10/23 05/21/23 05/04/23 capsule sertraline 50 mg tablet 75 mg PO DAILY 04/17/23 05/21/23 05/04/23 am acetaminophen 325 mg tablet 650 mg PO Q4 PRN Fever Or Pain 05/21/23 05/21/23 Unknown bisacodyl 10 mg rectal suppository 10 mg [place] .Q 24 HOURS PRN 05/21/23 05/21/23 Unknown (Dulcolax (bisacodyl)) constipation on day 4 no BM docusate sodium 100 mg capsule 100 mg PO .EVERY 24 HOURS PRN 05/21/23 05/21/23 Unknown (Colace) constipation on day 2 no BM polyethylene glycol 3350 17 17 g PO .EVERY 24 HOURS PRN 05/21/23 05/21/23 Unknown gram/dose oral powder (Miralax) constipation 3rd day of no BM tacrolimus 1 mg capsule, 1 mg PO QPM 05/21/23 05/21/23 Unknown immediate-release tacrolimus 1 mg capsule, 2 mg PO QAM 05/21/23 05/21/23 Unknown immediate-release Active Medications Generic Name Dose Route Start Last Admin Trade Name Tim PRN Reason Stop Dose Admin Brimonidine Tartrate 1 drops 05/22/23 21:00 05/26/23 21:32 Brimonidine Tartrate 0.2% 5ml OPB 06/21/23 20:59 1 drops HS NAZANIN Administration Docusate Sodium 100 mg 05/25/23 21:00 05/27/23 08:32 Docusate Sodium 100 Mg Cap PO 06/24/23 20:59 100 mg BID NAZANIN Administration Levetiracetam 500 mg 05/26/23 21:00 05/27/23 08:32 Levetiracetam 500 Mg Tab PO 06/25/23 20:59 500 mg BID NAZANIN Administration Magnesium Oxide 400 mg 05/24/23 21:00 05/26/23 21:34 Magnesium Oxide 400 Mg Tab PO 06/23/23 20:59 400 mg QPM NAZANIN Administration Methenamine Hippurate 1 gm 05/22/23 09:00 05/27/23 08:32 Methenamine Hippurate 1 Gm Tab PO 06/21/23 08:59 1 gm BID NAZANIN Administration Mycophenolate Mofetil 250 mg 05/22/23 09:00 05/27/23 08:32 Mycophenolate Mofetil 250 Mg Cap PO 06/21/23 08:59 250 mg BID NAZANIN Administration Polyethylene Glycol 17 gm 05/26/23 09:00 05/27/23 08:32 Polyethylene (Miralax) 17 Gm Pack PO 06/25/23 08:59 17 gm DAILY NAZANIN Administration Sertraline HCl 75 mg 05/22/23 09:00 05/27/23 08:33 Sertraline Hcl 50 Mg Tablet PO 06/21/23 08:59 75 mg DAILY NAZANIN Administration Tacrolimus 2 mg 05/22/23 09:00 05/27/23 08:33 Tacrolimus 1 Mg Cap PO 06/21/23 08:59 2 mg QAM NAZANIN Administration Tacrolimus 1 mg 05/22/23 21:00 05/26/23 21:34 Tacrolimus 1 Mg Cap PO 06/21/23 20:59 1 mg QPM NAZANIN Administration
[2023-05-28 07:46] LABS: Hematocrit (blood only) 35.4 % (42.0-52.0); Hemoglobin 11.8 g/dl (14.0-18.0); Mean Corpuscular Hemoglobin 29.6 pg (25.0-34.0); Mean Corpuscular Hgb Conc 33.3 g/dL (32.0-36.0); Mean Corpuscular Volume 88.9 fL (80.0-100.0); Mean Platelet Volume 8.6 fL (9.4-12.4); Platelet Count 132 K/uL (130-400); RDW Coefficient of Variation 13.3 % (11.5-14.5); RDW Standard Deviation 43.4 fL (36.4-46.3); Red Blood Count 3.98 M/uL (4.70-6.10); White Blood Count 4.27 K/ul (4.8-10.8)
[2023-05-28 08:22] LABS: BUN Creatinine Ratio 20.8 (10-20); Creatinine Clr Calc Pharmacy 45.5 ml/min; Est GFR (African American) 62.6 ml/min
--- NOTE | 2023-05-28 11:44 | Hospitalist Progress Note ---
Date of Service May 28, 2023 Assessment & Plan (1) Encephalopathy: Plan Mr. Marie is an 82 year old male with PMhx significant for hypertension, end- stage renal disease secondary to polycystic kidney disease status post kidney transplant on immunosuppressive (tacrolimus and CellCept) regimen, DUSTY CPAP noncompliance, recurrent UTIs secondary to incomplete bladder emptying with indwelling Sherwood catheter on methenamine suppression Rx, BPH status post surgery, renal cyst, chronic subdural hematoma status post surgery, history of lumbar compression fractures, mood disorder, dementia, chronic anemia (baseline hemoglobin of 12), skin cancer as per records, hx MRSA presenting with acute confusion. Per record review: Recently admitted to [facility] because of acute on chronic subdural hematoma on 05/05/23 and underwent right MMA embolization on 05/09/23 without complications. His aspirin was discontinued indefinitely given fall risk with h/o SDH. His atorvastatin as also discontinued as deemed unnecessary due to age and polypharmacy. On 05/23, a 45 minute conversation had with over phone. Discussed need for infectious disease to help determine if sumaya is pathogenic v colonization. Discussed that sherwood exchanged today. Noted that it is not ideal to treat this particular organism given the DDI with Tacro and the nephrotoxic profile of some agents. verbalized understanding. does state she is unsure about his mentation and if it "fluctuates"--would anticipate element of waxing/waning delirium given degree of neurologic insult. Plan to investigate other sources of AMS. TSH, B12, Folate all WNL. Sherwood exchanged and repeat UA not suggestive of infection. #Severe constipation -likely source of encephalopathy--as constipation improved, patient improved Continue docusate qam -At baseline per son #Acute metabolic/toxic encephalopathy *resolved #Myoclonic like activity #Chronic subdural hematoma now s/p right MMA embolization #Dementia Pt brought in due to altered mental status Head CT unremarkable Brain MRI noting chronic/known/improving subdural hematomas. UA suggestive of infection, urine Cx growing sumaya glabrata--do not treat per ID MRSA nare negative ASA and statin discontinued recently Per prior physician: Case discussed with pt's neurologist Dr Dhillon, advised that there was no role for Neurology at this time. Delirium precautions. Frequent reorientation, avoid sedating medications as able Continue to monitor B12: 429, Folate: 15.39, TSH 1.6 EEG diffuse slow wave, no epileptiform activity Tacro levels pending , will return in 24-48 hours Constipation on KUB--likely contributing to delirium--aggressive bowel regimen, BM on 05/24 x multiple -Continue keppra 500mg BID PO -Neurology consult -Follow up EEG,; potential that tacrolimus is source of tremors--if EEG reveals slowing and tacro returns high, likely source; if not potential 2/2 hematomas -Tacro level 3.5, tremors likely related to metabolic encephalopathy from severe constipation iso subdural hematomas -OP neurology follow up #Candiduria concern for CAUTI *ruled out #hx recurrent UTIs #Urinary retention s/o chronic sherwood UA suggestive of infection, urine Cx growing sumaya glabarata likely secondary to incomplete bladder emptying with chronic indwelling Sherwood catheter on methenamine suppression Rx prior to arrival no sepsis for now Hold aztreonam given no bacterial growth on UA, continue at this time, follow cultures Hold MMF iso of infection concern Sumaya glabrata--options limited if considered pathogenic; caspofungin doesn't cover organism well; plan for ID consult to discuss treat v not treat given immunocompromised status -Spoke with Dr Zabala over [employer]--sumaya is rarely treated unless is corresponding candidemia/abscess formation -Repeat UA--negative -Continue MMF and methenamine Remained stable over 48 hours off antibiotics. CTM no further indication for antimicrobials at this time #hypertension stable, home amlodipine held (5mg) resume prn #end-stage renal disease s/p cadaver renal transplant , CKD III #chronic immunosuppression secondary to polycystic kidney disease status post kidney transplant on immunosuppressive (tacrolimus and CellCept) r egimen Continue MMF and Tacrolimus given multiple medication adjustments, plan -Renal function stable at this time #DUSTY CPAP noncompliance #Moderate protein leida malnutrition BMI 19 Nutrition consult #chronic normocytic anemia hemoglobin at baseline Diet HH/pureed DVT prophylaxis. SCDs RE traumatic subdural hematoma Full code Dispo: PT/OT placed- recommending acute rehab Admission and Anticipated Discharge Date Admission Date: May 21, 2023 Subjective NAEO Physical Exam Constitutional: WD/WN, vitals as above Respiratory: normal respiratory effort, lungs clear to auscultation Cardiovascular: RRR, no murmur, no edema Gastrointestinal (Abdomen): normal bowel sounds, soft, nontender, no hepatosplenomegaly Results & Data Results & Data Vital Signs (Past 12 Hours) Vital Signs Temp Pulse Pulse Resp BP Pulse Ox O2 Del Method 05/28/23 10:50 36.7 C 74 18 186/76 H 99 Room Air 05/28/23 08:51 36.5 C 67 18 148/90 H 99 Room Air 05/28/23 08:34 67 05/28/23 03:00 36.5 C 70 18 115/70 98 Room Air 05/28/23 00:26 67 Laboratory Results Short CBC 05/28/23 Range/Units 06:56 WBC 4.27 L (4.8-10.8) K/ul Hgb 11.8 L (14.0-18.0) g/dl Hct 35.4 L (42.0-52.0) % Plt Count 132 (130-400) K/uL BMP 05/28/23 06:56 Sodium 138 Potassium 4.0 Chloride 107 Carbon Dioxide 27 BUN 26 H Creatinine 1.25 Glucose 83 Calcium 9.0 Medications Administered Home Medications Medication Instructions Recorded Confirmed Last Taken brimonidine 0.2 % eye drops 1 drp OPB HS #15 mL 12/01/22 05/21/23 05/03/23 calcium carbonate 200 mg calcium 200 mg PO BIDM 12/02/22 05/21/23 05/04/23 (500 mg) chewable tablet (Tums) magnesium oxide 400 mg PO QPM 12/02/22 05/21/23 05/03/23 amlodipine 5 mg tablet 5 mg PO DAILY #90 tabs 01/09/23 05/21/23 05/04/23 methenamine hippurate 1 gram tablet 1 g PO BID #0 tabs 02/06/23 05/21/23 05/04/23 mycophenolate mofetil 250 mg 250 mg PO BID #60 ea 02/10/23 05/21/23 05/04/23 capsule sertraline 50 mg tablet 75 mg PO DAILY 04/17/23 05/21/23 05/04/23 am acetaminophen 325 mg tablet 650 mg PO Q4 PRN Fever Or Pain 05/21/23 05/21/23 Unknown bisacodyl 10 mg rectal suppository 10 mg HI .Q 24 HOURS PRN 05/21/23 05/21/23 Unknown (Dulcolax (bisacodyl)) constipation on day 4 no BM docusate sodium 100 mg capsule 100 mg PO .EVERY 24 HOURS PRN 05/21/23 05/21/23 Unknown (Colace) constipation on day 2 no BM polyethylene glycol 3350 17 17 g PO .EVERY 24 HOURS PRN 05/21/23 05/21/23 Unknown gram/dose oral powder (Miralax) constipation 3rd day of no BM tacrolimus 1 mg capsule, 1 mg PO QPM 05/21/23 05/21/23 Unknown immediate-release tacrolimus 1 mg capsule, 2 mg PO QAM 05/21/23 05/21/23 Unknown immediate-release Active Medications Generic Name Dose Route Start Last Admin Trade Name Freq PRN Reason Stop Dose Admin Brimonidine Tartrate 1 drops 05/22/23 21:00 05/27/23 19:52 Brimonidine Tartrate 0.2% 5ml OPB 06/21/23 20:59 1 drops HS NAZANIN Administration Levetiracetam 500 mg 05/26/23 21:00 05/28/23 09:12 Levetiracetam 500 Mg Tab PO 06/25/23 20:59 500 mg BID NAZANIN Administration Magnesium Oxide 400 mg 05/24/23 21:00 05/27/23 19:52 Magnesium Oxide 400 Mg Tab PO 06/23/23 20:59 400 mg QPM NAZANIN Administration Methenamine Hippurate 1 gm 05/22/23 09:00 05/28/23 09:24 Methenamine Hippurate 1 Gm Tab PO 06/21/23 08:59 1 gm BID NAZANIN Administration Mycophenolate Mofetil 250 mg 05/22/23 09:00 05/28/23 09:25 Mycophenolate Mofetil 250 Mg Cap PO 06/21/23 08:59 250 mg BID NAZANIN Administration Polyethylene Glycol 17 gm 05/26/23 09:00 05/28/23 09:26 Polyethylene (Miralax) 17 Gm Pack PO 06/25/23 08:59 17 gm DAILY NAZANIN Administration Sertraline HCl 75 mg 05/22/23 09:00 05/28/23 09:24 Sertraline Hcl 50 Mg Tablet PO 06/21/23 08:59 75 mg DAILY NAZANIN Administration Tacrolimus 2 mg 05/22/23 09:00 05/28/23 09:24 Tacrolimus 1 Mg Cap PO 06/21/23 08:59 2 mg QAM NAZANIN Administration Tacrolimus 1 mg 05/22/23 21:00 05/27/23 19:52 Tacrolimus 1 Mg Cap PO 06/21/23 20:59 1 mg QPM NAZANIN Administration
[2023-05-28] MEDS: amLODIPine BESYLATE 5 MG TAB PO SCH (12:00)
[2023-05-29] MEDS: DOCUSATE SODIUM 100 MG CAP PO SCH (08:18)
--- NOTE | 2023-05-29 09:19 | Hospitalist Progress Note ---
Date of Service May 29, 2023 Assessment & Plan (1) Encephalopathy: Plan Mr. Marie is an 82 year old male with PMhx significant for hypertension, end- stage renal disease secondary to polycystic kidney disease status post kidney transplant on immunosuppressive (tacrolimus and CellCept) regimen, DUSTY CPAP noncompliance, recurrent UTIs secondary to incomplete bladder emptying with indwelling Sher[place] catheter on methenamine suppression Rx, BPH status post surgery, renal cyst, chronic subdural hematoma status post surgery, history of lumbar compression fractures, mood disorder, dementia, chronic anemia (baseline hemoglobin of 12), skin cancer as per records, hx MRSA presenting with acute confusion. Per record review: Recently admitted to [facility] because of acute on chronic subdural hematoma on 05/05/23 and underwent right MMA embolization on 05/09/23 without complications. His aspirin was discontinued indefinitely given fall risk with h/o SDH. His atorvastatin as also discontinued as deemed unnecessary due to age and polypharmacy. On 05/23, a 45 minute conversation had with over phone. Discussed need for infectious disease to help determine if sumaya is pathogenic v colonization. Discussed that sherwood exchanged today. Noted that it is not ideal to treat this particular organism given the DDI with Tacro and the nephrotoxic profile of some agents. verbalized understanding. does state she is unsure about his mentation and if it "fluctuates"--would anticipate element of waxing/waning delirium given degree of neurologic insult. Plan to investigate other sources of AMS--this is likely been 2/2 severe constipation as mentation notably improved with large bowel movements. TSH, B12, Folate all WNL. Sherwood exchanged and repeat UA not suggestive of infection. #Severe constipation*resolved -likely source of encephalopathy--as constipation improved, patient improved Continue docusate qam -At baseline per son #Acute metabolic/toxic encephalopathy *resolved #Myoclonic like activity #Chronic subdural hematoma now s/p right MMA embolization #Dementia Pt brought in due to altered mental status Head CT unremarkable Brain MRI noting chronic/known/improving subdural hematomas. UA suggestive of infection, urine Cx growing sumaya glabrata--do not treat per ID MRSA nare negative ASA and statin discontinued recently Per prior physician: Case discussed with pt's neurologist Dr Dhillon, advised that there was no role for Neurology at this time. Delirium precautions. Frequent reorientation, avoid sedating medications as able B12: 429, Folate: 15.39, TSH 1.6 EEG diffuse slow wave, no epileptiform activity Constipation on KUB--likely contributing to delirium--aggressive bowel regimen, BM on 05/24 x multiple -Continue keppra 500mg BID PO -Neurology consult -Follow up EEG,; potential that tacrolimus is source of tremors--if EEG reveals slowing and tacro returns high, likely source; if not potential 2/2 hematomas -Tacro level 3.5, tremors likely related to metabolic encephalopathy from severe constipation iso subdural hematomas -OP neurology follow up #Candiduria concern for CAUTI *ruled out #hx recurrent UTIs #Urinary retention s/o chronic sherwood UA suggestive of infection, urine Cx growing sumaya glabarata likely secondary to incomplete bladder emptying with chronic indwelling Sher[place] catheter on methenamine suppression Rx prior to arrival no sepsis for now Hold aztreonam given no bacterial growth on UA, continue at this time, follow cultures Hold MMF iso of infection concern Sumaya glabrata--options limited if considered pathogenic; caspofungin doesn't cover organism well; plan for ID consult to discuss treat v not treat given immunocompromised status -Spoke with Dr Zabala over [employer]--sumaya is rarely treated unless is corresponding candidemia/abscess formation -Repeat UA--negative -Continue MMF and methenamine Remained stable over 48 hours off antibiotics. CTM no further indication for antimicrobials at this time #hypertension stable, home amlodipine continue #end-stage renal disease s/p cadaver renal transplant , CKD III #chronic immunosuppression secondary to polycystic kidney disease status post kidney transplant on immunosuppressive (tacrolimus and CellCept) regimen Continue MMF and Tacrolimus given multiple medication adjustments, plan -Renal function stable at this time #DUSTY CPAP noncompliance #Moderate protein leida malnutrition BMI 19 Nutrition consult #chronic normocytic anemia hemoglobin at baseline Diet HH/pureed DVT prophylaxis. SCDs RE traumatic subdural hematoma Full code Dispo: PT/OT placed- medically ready for discharge Admission and Anticipated Discharge Date Admission Date: May 21, 2023 Subjective Patient alert and communicative. Denies any acute concerns. Eating breakfast. Physical Exam Constitutional: WD/WN, vitals as above Respiratory: normal respiratory effort, lungs clear to auscultation Cardiovascular: RRR, no murmur, no edema Gastrointestinal (Abdomen): normal bowel sounds, soft, nontender, no hepatosplenomegaly Results & Data Results & Data Vital Signs (Past 12 Hours) Vital Signs Temp Pulse Pulse Resp BP Pulse Ox O2 Del Method 05/29/23 07:13 Room Air 05/29/23 04:03 36.7 C 68 16 164/85 H 98 Room Air 05/28/23 22:59 69 05/28/23 22:34 36.9 C 73 16 152/81 H 98 Room Air Medications Administered Home Medications Medication Instructions Recorded Confirmed Last Taken brimonidine 0.2 % eye drops 1 drp OPB HS #15 mL 12/01/22 05/21/23 05/03/23 calcium carbonate 200 mg calcium 200 mg PO BIDM 12/02/22 05/21/23 05/04/23 (500 mg) chewable tablet (Tums) magnesium oxide 400 mg PO QPM 12/02/22 05/21/23 05/03/23 amlodipine 5 mg tablet 5 mg PO DAILY #90 tabs 01/09/23 05/21/23 05/04/23 methenamine hippurate 1 gram tablet 1 g PO BID #0 tabs 02/06/23 05/21/23 05/04/23 mycophenolate mofetil 250 mg 250 mg PO BID #60 ea 02/10/23 05/21/23 05/04/23 capsule sertraline 50 mg tablet 75 mg PO DAILY 04/17/23 05/21/23 05/04/23 am acetaminophen 325 mg tablet 650 mg PO Q4 PRN Fever Or Pain 05/21/23 05/21/23 Unknown bisacodyl 10 mg rectal suppository 10 mg UT .Q 24 HOURS PRN 05/21/23 05/21/23 Unknown (Dulcolax (bisacodyl)) constipation on day 4 no BM docusate sodium 100 mg capsule 100 mg PO .EVERY 24 HOURS PRN 05/21/23 05/21/23 Unknown (Colace) constipation on day 2 no BM polyethylene glycol 3350 17 17 g PO .EVERY 24 HOURS PRN 05/21/23 05/21/23 Unknown gram/dose oral powder (Miralax) constipation 3rd day of no BM tacrolimus 1 mg capsule, 1 mg PO QPM 05/21/23 05/21/23 Unknown immediate-release tacrolimus 1 mg capsule, 2 mg PO QAM 05/21/23 05/21/23 Unknown immediate-release Active Medications Generic Name Dose Route Start Last Admin Trade Name Sebasq PRN Reason Stop Dose Admin Amlodipine Besylate 5 mg 05/28/23 11:45 05/29/23 08:18 Amlodipine Besylate 5 Mg Tab PO 06/27/23 11:44 5 mg QAM NAZANIN Administration Brimonidine Tartrate 1 drops 05/22/23 21:00 05/28/23 20:20 Brimonidine Tartrate 0.2% 5ml OPB 06/21/23 20:59 1 drops HS NAZANIN Administration Docusate Sodium 100 mg 05/29/23 09:00 05/29/23 08:18 Docusate Sodium 100 Mg Cap PO 06/28/23 08:59 100 mg QAM NAZANIN Administration Levetiracetam 500 mg 05/26/23 21:00 05/29/23 08:20 Levetiracetam 500 Mg Tab PO 06/25/23 20:59 500 mg BID NAZANIN Administration Magnesium Oxide 400 mg 05/24/23 21:00 05/28/23 20:24 Magnesium Oxide 400 Mg Tab PO 06/23/23 20:59 400 mg QPM NAZANIN Administration Methenamine Hippurate 1 gm 05/22/23 09:00 05/29/23 08:20 Methenamine Hippurate 1 Gm Tab PO 06/21/23 08:59 1 gm BID NAZANIN Administration Mycophenolate Mofetil 250 mg 05/22/23 09:00 05/29/23 08:18 Mycophenolate Mofetil 250 Mg Cap PO 06/21/23 08:59 250 mg BID NAZANIN Administration Polyethylene Glycol 17 gm 05/26/23 09:00 05/29/23 08:20 Polyethylene (Miralax) 17 Gm Pack PO 06/25/23 08:59 17 gm DAILY NAZANIN Administration Sertraline HCl 75 mg 05/22/23 09:00 05/29/23 08:19 Sertraline Hcl 50 Mg Tablet PO 06/21/23 08:59 75 mg DAILY NAZANIN Administration Tacrolimus 2 mg 05/22/23 09:00 05/29/23 08:18 Tacrolimus 1 Mg Cap PO 06/21/23 08:59 2 mg QAM NAZANIN Administration Tacrolimus 1 mg 05/22/23 21:00 05/28/23 20:21 Tacrolimus 1 Mg Cap PO 06/21/23 20:59 1 mg QPM NAZANIN Administration
--- NOTE | 2023-05-29 12:40 | Discharge Summary ---
Discharge Summary Date of Service May 29, 2023 Notes For Next Care Provider Long discussions and multiple updates/calls to , often displeased or resistant to discussion regarding medical care. is not aware of patient's baseline status/functional capacity and resistent to disucssions regarding code/palliative Son Enrique is not POA, however, is more involved in care and offers insight into complicated dynamic. Medication Changes From Visit Keppra 500mg BID Docusate 100mg qam Admission HPI Per Admitting Provider History obtained from patient, family, and records. Limited Medical history significant for hypertension, end-stage renal disease secondary to polycystic kidney disease status post kidney transplant on immunosuppressive (tacrolimus and CellCept) regimen, DUSTY CPAP noncompliance, recurrent UTIs secondary to incomplete bladder emptying with indwelling Sherwood catheter on methenamine suppression Rx, BPH status post surgery, renal cyst, chronic subdural hematoma status post surgery, history of lumbar compression fractures, mood disorder, dementia, chronic anemia (baseline hemoglobin of 12), skin cancer as per records, hx MRSA, past tobacco abuse. Recent [facility] [place] confinement May 04 to 2023 for acute on chronic subdural hematoma status post right MMA embolization. Patient aspirin discontinued indefinitely given fall risk and history of subdural hematoma. Patient subsequent discharged to [facility] memory care unit. This afternoon, patient noted to have a facial droop and leaning more to the right side. Somewhat confused more than usual as per family. Patient denies headache, chest pain, SOB, abdominal, or flank pain. IV ceftriaxone administered at the ER. Patient seems back to baseline at the ER as per family. Medical History as above Surgical History : Kidney transplant, vascular procedures, inguinal hernia repair, TURP Family History : Heart disease, DM Personal/Social history : Past tobacco abuse, no EtOH intake, dementia unit resident Admission Exam Per Admitting Provider GENERAL: Demented, comfortable, no respiratory distress SKIN: Pallor, warm HEENT: Bespectacled, pale palpebral conjunctivae, no ptosis, dry buccal mucosa NECK : Supple, no tenderness CHEST : CTA, no tenderness HEART : RRR, no obvious murmurs ABDOMEN: Some distention, nontender EXTREMITIES : No LE swelling/tenderness, no other conspicuous deformities noted NEUROLOGIC : Demented, no facial asymmetry, no other gross focality Principal Dx & Hospital Course #1 = Principal Diagnosis (1) Encephalopathy: Plan Mr. Marie is an 82 year old male with PMhx significant for hypertension, end- stage renal disease secondary to polycystic kidney disease status post kidney transplant on immunosuppressive (tacrolimus and CellCept) regimen, DUSTY CPAP noncompliance, recurrent UTIs secondary to incomplete bladder emptying with indwelling Sherwood catheter on methenamine suppression Rx, BPH status post surgery, renal cyst, chronic subdural hematoma status post surgery, history of lumbar compression fractures, mood disorder, dementia, chronic anemia (baseline hemoglobin of 12), skin cancer as per records, hx MRSA presenting with acute confusion. Per record review: Recently admitted to [facility] because of acute on chronic subdural hematoma on 05/05/23 and underwent right MMA embolization on 05/09/23 without complications. His aspirin was discontinued indefinitely given fall risk with h/o SDH. His atorvastatin as also discontinued as deemed unnecessary due to age and polypharmacy. On 05/23, a 45 minute conversation had with over phone. Discussed need for infectious disease to help determine if sumaya is pathogenic v colonization. Discussed that sherwood exchanged today. Noted that it is not ideal to treat this particular organism given the DDI with Tacro and the nephrotoxic profile of some agents. verbalized understanding. does state she is unsure about his mentation and if it "fluctuates"--would anticipate element of waxing/waning delirium given degree of neurologic insult. Plan to investigate other sources of AMS--this is likely been 2/2 severe constipation as mentation notably improved with large bowel movements. TSH, B12, Folate all WNL. Sherwood exchanged and repeat UA not suggestive of infection. #Severe constipation*resolved -likely source of encephalopathy--as constipation improved, patient improved Continue docusate qam -At baseline per son #Acute metabolic/toxic encephalopathy *resolved #Myoclonic like activity #Chronic subdural hematoma now s/p right MMA embolization #Dementia Pt brought in due to altered mental status Head CT unremarkable Brain MRI noting chronic/known/improving subdural hematomas. UA suggestive of infection, urine Cx growing sumaya glabrata--do not treat per ID MRSA nare negative ASA and statin discontinued recently Per prior physician: Case discussed with pt's neurologist Dr Dhillon, advised that there was no role for Neurology at this time. Delirium precautions. Frequent reorientation, avoid sedating medications as able B12: 429, Folate: 15.39, TSH 1.6 EEG diffuse slow wave, no epileptiform activity Constipation on KUB--likely contributing to delirium--aggressive bowel regimen, BM on 05/24 x multiple -Continue keppra 500mg BID PO -Neurology consult -Follow up EEG,; potential that tacrolimus is source of tremors--if EEG reveals slowing and tacro returns high, likely source; if not potential 2/2 hematomas -Tacro level 3.5, tremors likely related to metabolic encephalopathy from severe constipation iso subdural hematomas -OP neurology follow up #Candiduria concern for CAUTI *ruled out #hx recurrent UTIs #Urinary retention s/o chronic sherwood UA suggestive of infection, urine Cx growing sumaya glabarata likely secondary to incomplete bladder emptying with chronic indwelling Sherwood catheter on methenamine suppression Rx prior to arrival Sumaya glabrata--options limited if considered pathogenic; caspofungin doesn't cover organism well; plan for ID consult to discuss treat v not treat given immunocompromised status -Spoke with Dr Zabala over [employer]--sumaya is rarely treated unless is corresponding candidemia/abscess formation -Repeat UA--negative -Continue MMF and methenamine Remained stable over 48 hours off antibiotics. CTM no further indication for antimicrobials at this time #hypertension stable, home amlodipine continue #end-stage renal disease s/p cadaver renal transplant , CKD III #chronic immunosuppression secondary to polycystic kidney disease status post kidney transplant on immunosuppressive (tacrolimus and CellCept) regimen Continue MMF and Tacrolimus given multiple medication adjustments, plan -Renal function stable at this time #DUSTY CPAP noncompliance #Moderate protein leida malnutrition BMI 19 Nutrition consult #chronic normocytic anemia hemoglobin at baseline On day of discharge, patient ambulating the balbuena with roller walker, eating well, and communicating in a coherent fashion. Patient denied any acute concerns Discharge Exam Constitutional WD/WN, vitals as above Respiratory normal respiratory effort, lungs clear to auscultation Cardiovascular RRR, no murmur, no edema Gastrointestinal (Abdomen) normal bowel sounds, soft, nontender, no hepatosplenomegaly Updated Medication List Medication Instructions Recorded Confirmed Type brimonidine 0.2 % eye drops 1 drp OPB HS #15 mL 12/01/22 05/21/23 Rx calcium carbonate 200 mg calcium 200 mg PO BIDM 12/02/22 05/21/23 History (500 mg) chewable tablet (Tums) magnesium oxide 400 mg PO QPM 12/02/22 05/21/23 History amlodipine 5 mg tablet 5 mg PO DAILY #90 tabs 01/09/23 05/21/23 Rx methenamine hippurate 1 gram tablet 1 g PO BID #0 tabs 02/06/23 05/21/23 Rx mycophenolate mofetil 250 mg 250 mg PO BID #60 ea 02/10/23 05/21/23 Rx capsule sertraline 50 mg tablet 75 mg PO DAILY 04/17/23 05/21/23 History acetaminophen 325 mg tablet 650 mg PO Q4 PRN Fever Or Pain 05/21/23 05/21/23 History bisacodyl 10 mg rectal suppository 10 mg VT .Q 24 HOURS PRN 05/21/23 05/21/23 History (Dulcolax (bisacodyl)) constipation on day 4 no BM docusate sodium 100 mg capsule 100 mg PO .EVERY 24 HOURS PRN 05/21/23 05/21/23 History (Colace) constipation on day 2 no BM polyethylene glycol 3350 17 17 g PO .EVERY 24 HOURS PRN 05/21/23 05/21/23 History gram/dose oral powder (Miralax) constipation 3rd day of no BM tacrolimus 1 mg capsule, 1 mg PO QPM 05/21/23 05/21/23 History immediate-release tacrolimus 1 mg capsule, 2 mg PO QAM 05/21/23 05/21/23 History immediate-release docusate sodium 100 mg capsule 100 mg PO DAILY #30 caps 05/29/23 Rx (Dulcolax Stool Softener (docusate)) levetiracetam 500 mg tablet 500 mg PO BID #60 tabs 05/29/23 Rx (Keppra) Hospital Stay Data Consultations 05/21/23 20:23 ED Decision to Admit Stat 05/23/23 08:14 Consult Urology Routine 05/24/23 08:26 Consult Infectious Diseases Routine 05/25/23 09:10 Consult Neurology Routine Diagnostic Imagining Performed 05/21/23 18:20 CT head/brain wo con Stat 05/21/23 21:18 MR angio head wo con Stat MRI Brain [MR brain wo con] Stat 05/25/23 09:10 CT head/brain wo con Urgent Pending Results Patient Have Any Pending Studies at Discharge: No Discharge Instructions Given to Patient (Per Discharging Provider) #Severe constipation*resolved -likely source of encephalopathy--as constipation improved, patient improved Please continue docusate 100mg daily #Myoclonic like activity Head CT unremarkable Brain MRI noting chronic/known/improving subdural hematomas. EEG diffuse slow wave, no epileptiform activity -Continue keppra 500mg two times daily Patient needs follow up with Neurology #Urinary retention, chronic sherwood -Continue methenamine for UTI prevention -Please ensure leg bag during day for sherwood -Please ensure large urine collection bag overnight -Please exchange catheter on or before 06/21 Ensure follow up with Urology #Renal transplant , CKD III #chronic immunosuppression Continue MMF and Tacrolimus Please follow up with Transplant team Total Time Total Time Spent Total Time Spent (In Minutes): 45
== END 2023-05-29 14:16 | DRG 391 ==
LOC: ED 18:09 → SUATTDRO 21:31 → EDINP 21:31 → 2N 21:58

== ENCOUNTER 2024-02-10 13:28 | Inpatient (IN) ==
[2024-02-10 14:13] LABS: iSTAT Ionized Calcium 1.3 mmol/l (1.12-1.32)
--- NOTE | 2024-02-10 14:31 | Emergency Department Note ---
Impression & Plan Altered mental status, TUNG (acute kidney injury), Acute UTI, Acute hypernatremia, Acute dehydration, Immunocompromised ED Provider Note NAME: TRESSA RODRIGUEZ AGE: 83 SEX: M : 1940 ARRIVES VIA: Ambulance INFORMANT: [Patient][family, nursing] ED PROVIDER(S): [Dallas Mcduffie MD] CHIEF COMPLAINT: Confusion HISTORY OF PRESENT ILLNESS: The patient is an 83-year-old male with a history of renal transplant and immunocompromise. He has a chronic Lopez catheter. The patient was found to have a UTI recently and was placed on Cipro. The culture returned showing resistance to this antibiotic and he was switched to Augmentin about 4 days ago. He has had worsening mentation and more lethargy. He presents for evaluation. He is currently nonverbal. There has been no reported fall, no cough or congestion or respiratory complaints. There is some concern for dehydration. Family is at bedside PMHx/PSHx/Social Hx: See Below PHYSICAL EXAM: GENERAL: Patient is in no acute distress. HEENT: No acute trauma, normocephalic atraumatic, mucous membranes dry, no nasal congestion. NECK: No stridor, no adenopathy, no meningismus, trachea is midline. LUNGS: Clear to auscultation bilaterally, no wheeze, no rhonchi, breath sounds equal. No respiratory distress. HEART: Subtle systolic murmur, regular rate and rhythm. ABDOMEN: Soft, nontender, no peritonitis. Lopez catheter noted EXTREMITIES: No cyanosis, full range of motion of all the joints without pain or difficulty. NEUROLOGIC: Awake, nonverbal, no acute motor or sensory deficits, no focal weakness. SKIN: No jaundice, no diaphoresis. DIFFERENTIAL DIAGNOSIS: Dehydration, electrolyte imbalance, UTI, intracranial bleeding, medication reaction, among others. EMERGENCY DEPARTMENT PROCEDURES: MEDICAL DECISION MAKING: There is no leukocytosis or concerning anemia. There is a normal platelet count. Sodium is quite high at 157. Chloride is quite high at 122. There is evidence for acute kidney injury with a creatinine of 1.94. Lactic acid level is not elevated making severe sepsis less likely. Calcium and magnesium are both somewhat high. No concerning liver enzyme elevation. Ammonia level is not elevated. The patient appears to be in a euthyroid state. Urinalysis does suggest infection. Brain CT shows some chronic change, no acute intracranial bleeding. On exam, the patient appeared quite dehydrated. He was awake but nonverbal. Chest x-ray did not show CHF or pneumonia. ECG shows a sinus rhythm, no ischemia. Cardiac enzyme testing x 1 is slightly elevated. This troponin elevation is likely secondary to mismatch EKG although cardiac ischemia was also considered. The troponin can be followed inpatient. Patient received IV saline for 1 L. He was given IV ceftriaxone as antibiotic coverage. The patient is quite dehydrated and hypernatremic. He has evidence for acute kidney injury. I suspect the electrolyte abnormality/dehydration are causing his change in mental status. The UTI is likely the reason for the dehydration. Hospitalization is clearly indicated. I did speak with the patient's son, I spoke with the patient. I did talk with case checker. The on-call hospitalist was consulted. Prior/Outside records/notes reviewed: Today's EMS notes describing his presentation and transport to this hospital. ECG per my interpretation: Indication was altered mental state. The ECG shows a sinus rhythm with PACs. There is some baseline artifact. The rate is 92. There is no acute ST elevation. No PVCs. QTc is 447. Continuous Cardiac Monitoring per my interpretation: An order was placed for continuous cardiac monitoring. The monitor shows a rate of 97 with sinus rhythm with PACs. Imaging/x-ray results per my interpretation: Chest x-ray shows some chronic change, no focal pneumonia, no CHF. Chronic Medical/Social conditions affecting care: Advanced age, history of renal transplant. Care/Management discussed with: Case management, the on-call hospitalist. Level of care consideration(s): After review of the information above and other included data: --I believe the patient requires escalation of care to admission Critical Care Note: I have personally spent 42 minutes of critical care time in the direct management of this patient. This includes bedside care, interpretation of diagnostic studies, and testing, discussion with consultants, patient, and family members, and other required patient management activities. This 42 minutes is in excess of all separately billable procedures. DISPOSITION: Admission Past Med/Surg History Problem List (Updated 02/10/24 @ 16:08 by Dallas Mcduffie MD) Immunocompromised (Acute) Acute dehydration (Acute) Acute hypernatremia (Acute) Acute UTI (Acute) TUNG (acute kidney injury) (Acute) Altered mental status (Acute) Hypernatremia Hyponatremia Mixed Alzheimer and vascular dementia Subdural hematoma Parkinsonism Generalized muscle weakness (Acute) Urinary tract infection (Acute) Acute alteration in mental status (Acute) Renal lesion MRSA (methicillin resistant staph aureus) culture positive Kidney lesion, [place], right Acute UTI (Acute) Laceration of scalp (Acute) Fall (Acute) Acute on chronic intracranial subdural hematoma (Acute) Acute metabolic encephalopathy Catheter-associated urinary tract infection COVID-19 UTI (urinary tract infection) (Acute) Weakness (Acute) Falls Squamous cell carcinoma of skin (Chronic) Polycystic kidney (Chronic) Kidney replaced by transplant (Chronic) Hypercholesterolemia (Chronic) Depression (Chronic) Complex sleep apnea syndrome Impaired gait Prediabetes Primary hypertension Infected sebaceous cyst Unintentional weight loss Hypertensive crisis TUNG (acute kidney injury) (Acute) Cognitive decline (Acute) History of renal transplant (Acute) Urinary retention Physical deconditioning Incomplete emptying of bladder Medical History Encephalopathy Hypertension Chronic indwelling Lopez catheter Mild cognitive impairment Pre-syncope Hx of basal cell carcinoma AV fistula LEFT ARM>HAD DIALYSIS BEFORE KIDNEY *2005 [place] FOR 5 MONTHS Hx of squamous cell carcinoma Unintentional weight loss Hearing deficit Obstructive sleep apnea unable to tolerate cpap machine. Surgical History Renal transplant recipient History of cataract surgery RT/LEFT H/O right inguinal hernia repair S/P kidney transplant 2005 at [facility] [place] r/t polycystic kidney History of colonoscopy Status post Mohs surgery H/O transurethral resection of prostate Family History Grandfather (Maternal) Cardiac disorder Grandmother (Paternal) Cardiac disorder Grandfather (Paternal) Cardiac disorder Mother Cardiac disorder Hypertension Grandmother (Maternal) Diabetes Brother Hypertension Sister Renal transplant, status post Hypertension Other No family history of adverse response to anesthesia Social History Smoking Status: Unknown if ever smoked Tobacco Type: Cigarettes Second Hand Exposure: No; Do You Dip or Chew Tobacco: No; Hx Alcohol Use: No Hx Substance Use: No Preferred Language: Tristanian Communication Ability: Impaired Visual Impairment: No Limitations Hearing Ability: Normal Board Certified Arts Therapist Required: No Beliefs That Will Affect Care: None marital status: Current Living Situation: Alone current occupational status: retired How many Children do You have: 2 Feels Safe at Home: Yes Diet: regular during the past year weight has: decreased > 10 lbs Dental Care, Regularly: No Seatbelt Use: always Sunscreen Use: Yes Assistive Devices: Glasses Allergies Allergies Allergy/AdvReac Type Severity Reaction Status Date / Time lisinopril AdvReac Intermediate Cough Verified 12/04/23 10:10 Home Meds Home Medications Medication Instructions Recorded Confirmed magnesium oxide 400 mg PO HS 12/02/22 12/04/23 sertraline 50 mg tablet 75 mg PO DAILY 04/17/23 12/04/23 acetaminophen 325 mg tablet 650 mg PO Q4 PRN Fever Or Pain 05/21/23 12/04/23 docusate sodium 100 mg capsule 100 mg PO Q24H PRN constipation on 05/21/23 12/04/23 (Colace) day 2 no BM tacrolimus 1 mg capsule, 1 mg PO HS 05/21/23 12/04/23 immediate-release tacrolimus 1 mg capsule, 2 mg PO QAM 05/21/23 12/04/23 immediate-release calcium carbonate (Oyster Shell 500 mg PO BID 06/20/23 12/04/23 Calcium) bisacodyl 10 mg rectal suppository 10 mg NE DAILY PRN 08/09/23 12/04/23 (Dulcolax (bisacodyl)) polyethylene glycol 3350 17 17 g PO DAILY 08/09/23 12/04/23 gram/dose oral powder memantine 10 mg tablet 10 mg PO DAILY 10/31/23 12/04/23 nystatin-triamcinolone topical ea topical 10/31/23 12/04/23 ointment Previous Rx's Medication Instructions Recorded brimonidine 0.2 % eye drops 1 drp OPB HS #15 mL 12/01/22 amlodipine 5 mg tablet 5 mg PO DAILY #90 tabs 01/09/23 methenamine hippurate 1 gram tablet 1 g PO BID #0 tabs 02/06/23 mycophenolate mofetil 250 mg 250 mg PO BID #60 ea 02/10/23 capsule Results & Data (ED) Vital Signs Vital Signs - 24 hr 02/10/24 13:29 02/10/24 13:45 02/10/24 13:56 Temperature 36.5 C Temperature Source Oral Pulse Rate 88 88 97 H Pulse Rate from SpO2 Sensor Pulse Rhythm Regular Regular Pulse Strength Normal Respiratory Rate 20 20 Respiratory Effort / Characteristics Non-Labored Respiratory Depth Normal Respiratory Pattern Regular Blood Pressure 104/60 Blood Pressure Mean 74 Blood Pressure Position Lying Pulse Oximetry 97 97 Oxygen Delivery Method Room Air Room Air Oxygen Flow Rate Sepsis Recent Fever Within 48 Hours No Sepsis New/Unexplained Change in Mental Status Yes Sepsis Action Taken by Nursing No Action Required 02/10/24 14:06 02/10/24 14:47 02/10/24 15:10 Temperature Temperature Source Pulse Rate 94 H 101 H Pulse Rate from SpO2 Sensor 92 H Pulse Rhythm Pulse Strength Respiratory Rate 22 18 Respiratory Effort / Characteristics Respiratory Depth Respiratory Pattern Blood Pressure 126/85 134/70 Blood Pressure Mean 98 91 Blood Pressure Position Pulse Oximetry 97 94 97 Oxygen Delivery Method Room Air Oxygen Flow Rate 0 Sepsis Recent Fever Within 48 Hours Sepsis New/Unexplained Change in Mental Status Sepsis Action Taken by Nursing 02/10/24 15:10 Temperature Temperature Source Pulse Rate Pulse Rate from SpO2 Sensor Pulse Rhythm Pulse Strength Respiratory Rate Respiratory Effort / Characteristics Respiratory Depth Respiratory Pattern Blood Pressure Blood Pressure Mean Blood Pressure Position Pulse Oximetry 97 Oxygen Delivery Method Room Air Oxygen Flow Rate Sepsis Recent Fever Within 48 Hours Sepsis New/Unexplained Change in Mental Status Sepsis Action Taken by Intermediate Medications Current Medication List: was personally reviewed by me Laboratory Data Attestation: I reviewed the patient's lab results. 02/10/24 13:40 02/10/24 13:40 Lab Results 02/10/24 02/10/24 02/10/24 Range/Units 13:40 14:00 14:40 WBC 9.82 (4.8-10.8) K/ul RBC 5.71 (4.70-6.10) M/uL Hgb 16.8 (14.0-18.0) g/dl POC Hgb 17.0 (14.0-18.0) g/dl Hct 52.1 H (42.0-52.0) % POC Hct 50 (42-52) % MCV 91.2 (80.0-100.0) fL MCH 29.4 (25.0-34.0) pg MCHC 32.2 (32.0-36.0) g/dL RDW Std Deviation 42.5 (36.4-46.3) fL RDW Coeff of Reema 12.8 (11.5-14.5) % Plt Count 164 (130-400) K/uL MPV 9.3 L (9.4-12.4) fL Immature Gran % (Auto) 0.4 % Neut % (Auto) 76.4 % Lymph % (Auto) 16.5 % [place] % (Auto) 5.2 % Eos % (Auto) 1.2 % Baso % (Auto) 0.3 % Neut # (Auto) 7.50 H (1.40-6.50) K/uL Lymph # (Auto) 1.62 (1.20-3.40) K/uL [place] # (Auto) 0.51 (0.11-0.59) K/uL Eos # (Auto) 0.12 (0.00-0.50) K/uL Baso # (Auto) 0.03 (0.00-0.20) K/uL Immature Gran # (Auto) 0.04 (0.01-0.20) K/uL POC Sodium 158 H* (135-144) mmol/L Sodium 157 H* (136-145) mmol/L POC Potassium 4.0 (3.3-5.0) mmol/L Potassium 4.1 (3.5-5.1) mmol/L POC Chloride 122 H (101-112) mmol/L Chloride 122 H (98-107) mmol/L Carbon Dioxide 26 (21-32) mmol/L POC Total CO2 23 L (24-31) mmol/L Anion Gap 9 (3-11) POC Anion Gap 18.0 (16-25) mmol/L POC BUN 63 H (7-18) mg/dl BUN 73 H (6-23) mg/dl Creatinine 1.94 H (0.6-1.4) mg/dl POC Creatinine 2.0 H (0.6-1.3) mg/dl Est Cr Clr Drug Dosing 27.9 ml/min eGFR 34.14 BUN/Creatinine Ratio 37.6 H (10-20) Glucose 173 H (70-99(Fasting)) mg/dl POC Glucose (other) 175 H (70-99) mg/dl Lactate 1.6 (0.4-2.0) mmol/L Calcium 10.4 H (8.6-10.3) mg/dl POC Ioniz Calcium Pia 1.30 (1.12-1.32) mmol/l Magnesium 2.5 H (1.7-2.4) mg/dl Total Bilirubin 1.0 (0.2-1.0) mg/dl AST 16 (13-39) U/L ALT 14 (7-52) U/L Alkaline Phosphatase 59 (34-104) U/L Ammonia 21.0 (18-72) umol/L Troponin I High Sens 29.0 H (0-20) pg/ml Total Protein 7.3 (6.0-8.3) gm/dl Albumin 4.0 (3.4-5.0) gm/dl Globulin 3.3 (2.5-4.0) gm/dl Albumin/Globulin Ratio 1.2 (0.9-2) TSH 0.413 (0.300-4.500) uIu/ml Urine Color Urine Appearance (Clear) Urine pH (4.5-7.5) Ur Specific [place] (1.000-1.030) Urine Protein (Negative) Urine Glucose (UA) (Negative) Urine Ketones (Negative) Urine Blood (Negative) Urine Nitrite (Negative) Urine Bilirubin (Negative) Urine Urobilinogen (Negative) Ur Leukocyte Esterase (Negative) Urine WBC (Auto) (0-5) /hpf Urine RBC (Auto) (0-2) /hpf U Hyaline Cast (Auto) (0-2) /lpf U Epithel Cells (Auto) (0-2) /hpf Urine Bacteria (Auto) (None Seen) Amorphous Sediment (None Prsent) 02/10/24 Range/Units 14:50 WBC (4.8-10.8) K/ul RBC (4.70-6.10) M/uL Hgb (14.0-18.0) g/dl POC Hgb (14.0-18.0) g/dl Hct (42.0-52.0) % POC Hct (42-52) % MCV (80.0-100.0) fL MCH (25.0-34.0) pg MCHC (32.0-36.0) g/dL RDW Std Deviation (36.4-46.3) fL RDW Coeff of Reema (11.5-14.5) % Plt Count (130-400) K/uL MPV (9.4-12.4) fL Immature Gran % (Auto) % Neut % (Auto) % Lymph % (Auto) % [place] % (Auto) % Eos % (Auto) % Baso % (Auto) % Neut # (Auto) (1.40-6.50) K/uL Lymph # (Auto) (1.20-3.40) K/uL [place] # (Auto) (0.11-0.59) K/uL Eos # (Auto) (0.00-0.50) K/uL Baso # (Auto) (0.00-0.20) K/uL Immature Gran # (Auto) (0.01-0.20) K/uL POC Sodium (135-144) mmol/L Sodium (136-145) mmol/L POC Potassium (3.3-5.0) mmol/L Potassium (3.5-5.1) mmol/L POC Chloride (101-112) mmol/L Chloride (98-107) mmol/L Carbon Dioxide (21-32) mmol/L POC Total CO2 (24-31) mmol/L Anion Gap (3-11) POC Anion Gap (16-25) mmol/L POC BUN (7-18) mg/dl BUN (6-23) mg/dl Creatinine (0.6-1.4) mg/dl POC Creatinine (0.6-1.3) mg/dl Est Cr Clr Drug Dosing ml/min eGFR BUN/Creatinine Ratio (10-20) Glucose (70-99(Fasting)) mg/dl POC Glucose (other) (70-99) mg/dl Lactate (0.4-2.0) mmol/L Calcium (8.6-10.3) mg/dl POC Ioniz Calcium Pia (1.12-1.32) mmol/l Magnesium (1.7-2.4) mg/dl Total Bilirubin (0.2-1.0) mg/dl AST (13-39) U/L ALT (7-52) U/L Alkaline Phosphatase (34-104) U/L Ammonia (18-72) umol/L Troponin I High Sens (0-20) pg/ml Total Protein (6.0-8.3) gm/dl Albumin (3.4-5.0) gm/dl Globulin (2.5-4.0) gm/dl Albumin/Globulin Ratio (0.9-2) TSH (0.300-4.500) uIu/ml Urine Color Dark Yellow Urine Appearance Turbid A (Clear) Urine pH 6.0 (4.5-7.5) Ur Specific [place] 1.026 (1.000-1.030) Urine Protein 3+ H (Negative) Urine Glucose (UA) Negative (Negative) Urine Ketones Negative (Negative) Urine Blood 3+ H (Negative) Urine Nitrite Negative (Negative) Urine Bilirubin 1+ H (Negative) Urine Urobilinogen Negative (Negative) Ur Leukocyte Esterase 3+ H (Negative) Urine WBC (Auto) >50 H (0-5) /hpf Urine RBC (Auto) >20 H (0-2) /hpf U Hyaline Cast (Auto) >20 H (0-2) /lpf U Epithel Cells (Auto) >20 H (0-2) /hpf Urine Bacteria (Auto) 4+ H (None Seen) Amorphous Sediment Present A (None Prsent) Administered Medications Discontinued Medications Ceftriaxone Sodium (Rocephin) 2,000 mg in 50 mls @ 100 mls/hr IV NOW STA Stop: 02/10/24 14:37 Last Admin: 02/10/24 14:53 Dose: 100 mls/hr Documented By: MR Sodium Chloride (Nss) 1,000 mls @ 999 mls/hr IV .Q1H1M ONE Stop: 02/10/24 15:31 Last Admin: 02/10/24 14:53 Dose: 999 mls/hr Documented By: MR Imaging Data Radiologist's Impression: Chest X-Ray 02/10/24 14:06 EXAM: Radiograph of the Chest 1 View INDICATION: Weakness. TECHNIQUE: Frontal view of the chest. COMPARISON: 06/20/2023 FINDINGS: Lungs and pleural spaces: Stable chronic interstitial scarring. No consolidation or pulmonary edema. No pleural effusion or pneumothorax. Heart: Stable mild cardiomegaly. Mediastinum: Normal contour. Bones/joints: There is a lucency projecting over the posterior left seventh rib which I suspect is artifact from the scapula. Soft tissues: No abnormality noted. No radiopaque foreign body noted. Vasculature: Stable ectatic aorta. Upper abdomen: No abnormality noted. IMPRESSION: 1. No acute cardiopulmonary disease. 2. There is a lucency projecting over the posterior left seventh rib which I suspect is artifact from the scapula. If there is pain referable to this area, dedicated rib series may be of benefit. ACT 112: Negative or not required by law. Electronically signed by Evelyn Vinson 02-10-2024 3:[address] 02/10/24 14:07 EXAM: CT Head Without Intravenous Contrast INDICATION: Altered mental status. Weakness. TECHNIQUE: Axial computed tomography images of the head/brain without intravenous contrast. Sagittal and/or coronal reformats are provided. Sagittal and coronal reformatted images were created and reviewed. This CT exam was performed using one or more of the following dose reduction techniques: automated exposure control, adjustment of the mA and/or kV according to patient size, and/or use of iterative reconstruction technique. COMPARISON: 11/21/2023 and 06/20/2023. FINDINGS: Limitations: None. Brain and extra-axial spaces: There is age appropriate cortical atrophy and chronic ischemic periventricular white matter hypodensity. No acute infarct, hemorrhage or mass noted. Stable approximate 5 mm thickness right hemispheric chronic hygroma (decreased from 8 mm 06/20/2023). An approximate 2-3 mm subacute subdural collection noted at the convexity is stable. No acute hemorrhage. Chronic small vessel ischemic changes and cortical atrophy stable. Bones/joints: No acute changes. Soft tissues: No significant abnormality noted. Vasculature: Dense atherosclerotic calcifications noted. Sinuses: No layering fluid in the visualized portions of the paranasal sinuses. Mastoid air cells: No mastoid effusion. Orbits: No significant abnormality noted. IMPRESSION: 1. Cerebral atrophy. No acute changes. 2. 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 No acute abnormality noted. ACT 112: Negative or not required by law. Electronically signed by Evelyn Vinson 02-10-2024 3:21 PM Discharge Plan Visit Data Chief Complaint: Lethargic ED Provider: Dallas Mcduffie Discharge Problem: Altered mental status, TUNG (acute kidney injury), Acute UTI, Acute hypernatremia, Acute dehydration, Immunocompromised Patient Disposition: Admitted As Inpatient Condition: Fair Forms Stand Alone Forms: Viewabill Prescriptions Prescriptions: No Action brimonidine 0.2 % drops 1 drp OPB HS Qty: 15 3RF Rx Instructions: Instill 1 drop into each eye at bedtime amlodipine 5 mg tablet 5 mg PO DAILY Qty: 90 3RF mycophenolate mofetil 250 mg capsule 250 mg PO BID Qty: 60 3RF Rx Instructions: please expedite sertraline 50 mg tablet 75 mg PO DAILY Rx Instructions: 1 & 1/2 tablet dose nystatin-triamcinolone Ointment topical memantine 10 mg tablet 10 mg PO DAILY bisacodyl [Dulcolax (bisacodyl)] 10 mg suppository 10 mg NE DAILY PRN polyethylene glycol 3350 17 gram/dose powder 17 g PO DAILY magnesium oxide 400 mg magnesium tablet 400 mg PO HS methenamine hippurate 1 gram Tablet 1 g PO BID Qty: 0 0RF tacrolimus 1 mg Capsule 2 mg PO QAM tacrolimus 1 mg capsule 1 mg PO HS acetaminophen 325 mg Tablet 650 mg PO Q4 MDD 3g PRN (Reason: Fever Or Pain) Rx Instructions: use for all pain levels and TEMP=>100 docusate sodium [Colace] 100 mg Capsule 100 mg PO Q24H PRN (Reason: constipation on day 2 no BM) calcium carbonate [Oyster Shell Calcium] 500 mg calcium (1,250 mg) Tablet 500 mg PO BID Referrals Referrals: Sergio Cesar MD [Primary Care Provider] - Discharge Problem: Altered mental status Qualifiers: Altered mental status type: stupor Qualified Code(s): R40.1 - Stupor
[2024-02-10 14:44] LABS: Basophils # (auto) 0.03 K/uL (0.00-0.20); Basophils % (auto) 0.3 %; Eosinophils # (auto) 0.12 K/uL (0.00-0.50); Eosinophils % (auto) 1.2 %; Hematocrit (blood only) 52.1 % (42.0-52.0); Hemoglobin 16.8 g/dl (14.0-18.0); Immature Granulocytes # (auto) 0.04 K/uL (0.01-0.20); Immature Granulocytes % (auto) 0.4 %; Lymphocytes # (auto) 1.62 K/uL (1.20-3.40); Lymphocytes % (auto) 16.5 %; Mean Corpuscular Hemoglobin 29.4 pg (25.0-34.0); Mean Corpuscular Hgb Conc 32.2 g/dL (32.0-36.0); Mean Corpuscular Volume 91.2 fL (80.0-100.0); Mean Platelet Volume 9.3 fL (9.4-12.4); Monocytes # (auto) 0.51 K/uL (0.11-0.59); Monocytes % (auto) 5.2 %; Neutrophils % (auto) 76.4 %; Platelet Count 164 K/uL (130-400); RDW Coefficient of Variation 12.8 % (11.5-14.5); RDW Standard Deviation 42.5 fL (36.4-46.3); Red Blood Count 5.71 M/uL (4.70-6.10); White Blood Count 9.82 K/ul (4.8-10.8)
[2024-02-10] MEDS: SODIUM CHLORIDE 0.9% 1,000 ML IV ONE (14:53)
[2024-02-10] MEDS: cefTRIAXone SODIUM 2,000 MG/50 ML BAG IV STA (14:53)
[2024-02-10 15:01] LABS: Albumin Globulin Ratio 1.2 (0.9-2); BUN Creatinine Ratio 37.6 (10-20); Calcium 10.4 mg/dl (8.6-10.3); Creatinine Clr Calc Pharmacy 27.9 ml/min; Globulin 3.3 gm/dl (2.5-4.0); Magnesium 2.5 mg/dl (1.7-2.4); Potassium 4.1 mmol/L (3.5-5.1); Total Protein 7.3 gm/dl (6.0-8.3)
--- NOTE | 2024-02-10 15:22 | CT Scan Report ---
EXAM: CT Head Without Intravenous Contrast INDICATION: Altered mental status. Weakness. TECHNIQUE: Axial computed tomography images of the head/brain without intravenous contrast. Sagittal and/or coronal reformats are provided. Sagittal and coronal reformatted images were created and reviewed. This CT exam was performed using one or more of the following dose reduction techniques: automated exposure control, adjustment of the mA and/or kV according to patient size, and/or use of iterative reconstruction technique. COMPARISON: 11/21/2023 and 06/20/2023. FINDINGS: Limitations: None. Brain and extra-axial spaces: There is age appropriate cortical atrophy and chronic ischemic periventricular white matter hypodensity. No acute infarct, hemorrhage or mass noted. Stable approximate 5 mm thickness right hemispheric chronic hygroma (decreased from 8 mm 06/20/2023). An approximate 2-3 mm subacute subdural collection noted at the convexity is stable. No acute hemorrhage. Chronic small vessel ischemic changes and cortical atrophy stable. Bones/joints: No acute changes. Soft tissues: No significant abnormality noted. Vasculature: Dense atherosclerotic calcifications noted. Sinuses: No layering fluid in the visualized portions of the paranasal sinuses. Mastoid air cells: No mastoid effusion. Orbits: No significant abnormality noted. IMPRESSION: 1. Cerebral atrophy. No acute changes. 2. 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 No acute abnormality noted. ACT 112: Negative or not required by law. Electronically signed by Evelyn Vinson 02-10-2024 3:21 PM
[2024-02-10 15:23] LABS: Thyroid Stimulating Hormone 0.413 uIu/ml (0.300-4.500)
[2024-02-10 15:30] LABS: Appearance Urine Turbid (Clear); Bacteria Urine Automated 4+ (None Seen); Bilirubin Urine 1+ (Negative); Blood Urine 3+ (Negative); Cast Urine Automated >20 /lpf (0-2); Color Urine Dark Yellow; Epithelial Cell Urine Auto >20 /hpf (0-2); Glucose Urine UA Negative (Negative); Ketones Urine Negative (Negative); Leukocyte Esterase Urine 3+ (Negative); Nitrite Urine Negative (Negative); Protein Urine 3+ (Negative); RBC Urine Automated >20 /hpf (0-2); Specific Gravity Urine 1.026 (1.000-1.030); Urobilinogen Urine Negative (Negative); WBC Urine Automated >50 /hpf (0-5)
[2024-02-10 15:40] LABS: Amorphous Sediment Urine Present (None Prsent)
--- NOTE | 2024-02-10 15:43 | History & Physical Report ---
Date of Service February 10, 2024 Assessment & Plan (1) Hypernatremia: Plan: Hypernatremia Dehydration Acute metabolic encephalopathy secondary to hyponatremia, UTI Likely due to poor oral intake Protein calorie malnutrition BMI 19 CT head: No acute changes, cerebral atrophy. 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 No acute abnormality noted. Presented with sodium 157 Normal TSH Received 1 L of NSS IV fluids in ED Started on D5 water at 50 mL/h Monitor sodium levels closely Nephrology consulted Target sodium 149-151 in 24 hours of IV fluids Check VBG to rule out hypercarbia Reorient frequently to minimize delirium Dietitian consulted Acute kidney injury H/O End-stage renal disease secondary to polycystic kidney disease S/P renal transplant Continue immunosuppression therapy with tacrolimus and CellCept Creatinine 1.9 Check tacrolimus levels Monitor renal function closely Avoid nephrotoxic agents as able Nephrology consulted Complicated urinary tract infection H/O urinary retention S/P sherwood H/O recurrent UTIs Blood, urine cultures pending Prior cultures grew Pseudomonas, Enterococcus Will continue Augmentin Started on cefepime as well Mild troponin elevation Likely secondary to TUNG Denies any chest pain EKG showed no signs of acute ischemia Trend troponins Mild hypercalcemia Secondary to dehydration Hold calcium supplements Monitor calcium levels DUSTY CPAP noncompliance Other chronic conditions: Dementia 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 Parkinson's disease Depression Continue home medications as able DVT Px: SCDs for now given history of subdural hematoma CODE STATUS Full code as per prior record History of Present Illness Chief Complaint: Altered Mental Status Primary Care Provider: Sergio Cesar MD Patient is an 82-year-old male with history of hypertension, end-stage renal disease secondary to polycystic kidney disease S/P renal transplant on immunosuppression therapy with tacrolimus and CellCept, DUSTY CPAP noncompliance, recurrent UTIs, dementia, chronic subdural hematoma S/P R MMA embolization, urinary retention S/P sherwood, moderate protein calorie malnutrition, Parkinson's disease, depression as per record and other medical problems presents with history of altered mental status, lethargic which has been gradually worsening since 1 week duration. Patient is mostly nonverbal but nods to questions cu rrently. Most of the history is obtained from ER staff, old records. No family at bedside during my encounter. He has been currently treated for complicated urinary tract infection started with ciprofloxacin as outpatient and later changed to Augmentin about 4 days ago. No records from [facility] currently available. Patient denies any chest pain, dyspnea, nausea, vomiting, abdominal pain, dizziness. His intake has been very poor. He clinically looks very dehydrated. No known history of fever, chills. Came in with Sherwood catheter. Patient has history of multiple UTIs in the past. He is currently alert, awake and oriented to person and follows simple commands. Allergies Allergy/AdvReac Type Severity Reaction Status Date / Time lisinopril AdvReac Intermediate Cough Verified 12/04/23 10:10 Home Medications Medication Instructions Recorded Confirmed Type brimonidine 0.2 % eye drops 1 drp OPB HS #15 mL 12/01/22 02/10/24 Rx magnesium oxide 400 mg PO HS 12/02/22 02/10/24 History amlodipine 5 mg tablet 5 mg PO DAILY #90 tabs 01/09/23 02/10/24 Rx methenamine hippurate 1 gram tablet 1 g PO BID #0 tabs 02/06/23 02/10/24 Rx mycophenolate mofetil 250 mg 250 mg PO BID #60 ea 02/10/23 02/10/24 Rx capsule sertraline 50 mg tablet 75 mg PO DAILY 04/17/23 02/10/24 History acetaminophen 325 mg tablet 650 mg PO Q4 PRN Fever Or Pain 05/21/23 02/10/24 History docusate sodium 100 mg capsule 100 mg PO Q24H PRN constipation on 05/21/23 02/10/24 History (Colace) day 2 no BM in the AM tacrolimus 1 mg capsule, 1 mg PO HS 05/21/23 02/10/24 History immediate-release tacrolimus 1 mg capsule, 2 mg PO QAM 05/21/23 02/10/24 History immediate-release calcium carbonate (Oyster Shell 500 mg PO BID 06/20/23 02/10/24 History Calcium) bisacodyl 10 mg rectal suppository 10 mg PA DAILY PRN 4th day of no 08/09/23 02/10/24 History (Dulcolax (bisacodyl)) BM in AM polyethylene glycol 3350 17 17 g PO DAILY PRN No BM for 3 days 08/09/23 02/10/24 History gram/dose oral powder memantine 10 mg tablet 10 mg PO QAM 10/31/23 02/10/24 History acetaminophen 650 mg rectal 650 mg PA Q4H PRN Fever Or Pain 02/10/24 02/10/24 History suppository amoxicillin 875 mg-potassium 1 tab PO Q12H 02/10/24 02/10/24 History clavulanate 125 mg tablet Past Med/Surg History Problem List (Updated 02/10/24 @ 16:08 by Dallas Mcduffie MD) Immunocompromised (Acute) Acute dehydration (Acute) Acute hypernatremia (Acute) Acute UTI (Acute) TUNG (acute kidney injury) (Acute) Altered mental status (Acute) Hypernatremia Hyponatremia Mixed Alzheimer and vascular dementia Subdural hematoma Parkinsonism Generalized muscle weakness (Acute) Urinary tract infection (Acute) Acute alteration in mental status (Acute) Renal lesion MRSA (methicillin resistant staph aureus) culture positive Kidney lesion, [place], right Acute UTI (Acute) Laceration of scalp (Acute) Fall (Acute) Acute on chronic intracranial subdural hematoma (Acute) Acute metabolic encephalopathy Catheter-associated urinary tract infection COVID-19 UTI (urinary tract infection) (Acute) Weakness (Acute) Falls Squamous cell carcinoma of skin (Chronic) Polycystic kidney (Chronic) Kidney replaced by transplant (Chronic) Hypercholesterolemia (Chronic) Depression (Chronic) Complex sleep apnea syndrome Impaired gait Prediabetes Primary hypertension Infected sebaceous cyst Unintentional weight loss Hypertensive crisis TUNG (acute kidney injury) (Acute) Cognitive decline (Acute) History of renal transplant (Acute) Urinary retention Physical deconditioning Incomplete emptying of bladder Medical History Encephalopathy Hypertension Chronic indwelling Sherwood catheter Mild cognitive impairment Pre-syncope Hx of basal cell carcinoma AV fistula LEFT ARM>HAD DIALYSIS BEFORE KIDNEY *2006 [place] FOR 5 MONTHS Hx of squamous cell carcinoma Unintentional weight loss Hearing deficit Obstructive sleep apnea unable to tolerate cpap machine. Surgical History Renal transplant recipient History of cataract surgery RT/LEFT H/O right inguinal hernia repair S/P kidney transplant [place] [facility] [place] r/t polycystic kidney History of colonoscopy Status post Mohs surgery H/O transurethral resection of prostate Family History Grandfather (Maternal) Cardiac disorder Grandmother (Paternal) Cardiac disorder Grandfather (Paternal) Cardiac disorder Mother Cardiac disorder Hypertension Grandmother (Maternal) Diabetes Brother Hypertension Sister Renal transplant, status post Hypertension Other No family history of adverse response to anesthesia Social History Smoking Status: Unknown if ever smoked Tobacco Type: Cigarettes Second Hand Exposure: No; Do You Dip or Chew Tobacco: No; Hx Alcohol Use: No Hx Substance Use: No Preferred Language: [place] Citizen Communication Ability: Impaired Visual Impairment: No Limitations Hearing Ability: Normal Tongue Trimmer Required: No Beliefs That Will Affect Care: None marital status: Current Living Situation: Alone current occupational status: retired How many Children do You have: 2 Feels Safe at Home: Yes Diet: regular during the past year weight has: decreased > 10 lbs Dental Care, Regularly: No Seatbelt Use: always Sunscreen Use: Yes Assistive Devices: Glasses Review of Systems Review of Systems: Other Physical Exam Physical Exam: Physical Exam: Vitals signs as noted above General Appearance: Thin, frail, elderly, no apparent distress Head: normocephalic, Atraumatic, poor dentition, oral mucosa dry Eyes: normal inspection, EOMI Neck: supple, Trachea midline Respiratory/Chest: Normal breath sounds, CTA, No accessory muscle use Cardiovascular: S1, S2, No murmur Abdomen/GI:Soft, Non tender, Bowel sounds present : + Sherwood Extremities/Musculoskeletal:normal inspection, no edema Neurologic/Psych:AAOX1, follows simple commands, unable to perform complete neurological exam Skin: normal color, warm Results & Data Results & Data Vital Signs (Past 12 Hours) Vital Signs Temp Pulse Resp BP Pulse Ox O2 Del Method O2 Flow Rate 02/10/24 15:10 97 Room Air 02/10/24 15:10 97 Room Air 0 02/10/24 14:47 101 H 18 134/70 94 02/10/24 14:06 94 H 22 126/85 97 02/10/24 13:56 97 H 02/10/24 13:45 88 20 97 Room Air 02/10/24 13:29 36.5 C 88 20 104/60 97 Room Air Laboratory Results Short CBC 02/10/24 Range/Units 13:40 WBC 9.82 (4.8-10.8) K/ul Hgb 16.8 (14.0-18.0) g/dl Hct 52.1 H (42.0-52.0) % Plt Count 164 (130-400) K/uL BMP 02/10/24 13:40 Sodium 157 H* Potassium 4.1 Chloride 122 H Carbon Dioxide 26 BUN 73 H Creatinine 1.94 H Glucose 173 H Calcium 10.4 H Liver Function 02/10/24 Range/Units 13:40 Total Bilirubin 1.0 (0.2-1.0) mg/dl AST 16 (13-39) U/L ALT 14 (7-52) U/L Alkaline Phosphatase 59 (34-104) U/L Albumin 4.0 (3.4-5.0) gm/dl Urine 02/10/24 Range/Units 14:50 Urine Color Dark Yellow Urine Appearance Turbid A (Clear) Urine pH 6.0 (4.5-7.5) Ur Specific [place] 1.026 (1.000-1.030) Urine Protein 3+ H (Negative) Urine Glucose (UA) Negative (Negative) Diagnostic Findings -- CT head:Cerebral atrophy. No acute changes. 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 No acute abnormality noted. Medications Administered --EKG: Sinus rhythm with marked sinus arrhythmia, QTc 447.
--- NOTE | 2024-02-10 15:52 | XRay Report ---
EXAM: Radiograph of the Chest 1 View INDICATION: Weakness. TECHNIQUE: Frontal view of the chest. COMPARISON: 06/20/2023 FINDINGS: Lungs and pleural spaces: Stable chronic interstitial scarring. No consolidation or pulmonary edema. No pleural effusion or pneumothorax. Heart: Stable mild cardiomegaly. Mediastinum: Normal contour. Bones/joints: There is a lucency projecting over the posterior left seventh rib which I suspect is artifact from the scapula. Soft tissues: No abnormality noted. No radiopaque foreign body noted. Vasculature: Stable ectatic aorta. Upper abdomen: No abnormality noted. IMPRESSION: 1. No acute cardiopulmonary disease. 2. There is a lucency projecting over the posterior left seventh rib which I suspect is artifact from the scapula. If there is pain referable to this area, dedicated rib series may be of benefit. ACT 112: Negative or not required by law. Electronically signed by Evelyn Vinson 02-10-2024 3:52 PM
[2024-02-10] MEDS ORDERED: DOCUSATE SODIUM 100 MG CAP PO PRN (19:01)
[2024-02-10] MEDS ORDERED: POLYETHYLENE (MIRALAX) 17 GM PACK PO PRN (19:01)
[2024-02-10] MEDS ORDERED: ONDANSETRON INJ 2 MG/ML 2 ML VIAL IV PRN (19:01)
[2024-02-10] MEDS ORDERED: bisacodyL 10 MG SUPP PR PRN (19:01)
[2024-02-10] MEDS ORDERED: CEFEPIME 1000MG 1,000 MG/10 ML SYR IV SCH (19:01)
[2024-02-10] MEDS ORDERED: AMOXICILLIN/CLAVULANATE 875 MG TAB PO SCH (19:01)
[2024-02-10] MEDS: DEXTROSE 5% 1,000 ML IV ONE (19:46)
--- NOTE | 2024-02-10 20:17 | Communication Note ---
Date of Service: February 10, 2024 Patient unable to swallow pills (including Augmentin Rx for possible UTI, history Enterococcus) safely as per RN. AP Complicated UTI Follow urine CS Zosyn in place of Augmentin and cefepime for now
[2024-02-10 20:46] LABS: BUN Creatinine Ratio 38.6 (10-20); Calcium 9.5 mg/dl (8.6-10.3); Creatinine Clr Calc Pharmacy 28.6 ml/min; Potassium 3.8 mmol/L (3.5-5.1)
[2024-02-10] MEDS ORDERED: METHENAMINE HIPPURATE 1 GM TAB PO SCH (21:00)
[2024-02-10 21:12] LABS: Base Excess VBG 0 mEq/L; HCO3 VBG 26 mmol/L; Oxygen Saturation VBG < 60.0 %; PCO2 VBG 49 mmHg (38-50); PO2 VBG < 20 mmHg; pH VBG 7.34 (7.36-7.41)
[2024-02-10] MEDS: MAGNESIUM OXIDE 400 MG TAB PO SCH (21:35)
[2024-02-10] MEDS: BRIMONIDINE TARTRATE 0.2% 5ML OPB SCH (21:35)
[2024-02-10] MEDS: TACROLIMUS 1 MG CAP PO SCH (21:36)
[2024-02-10] MEDS: 4.5GM X1 IV ONE (21:36)
[2024-02-10] MEDS: MYCOPHENOLATE MOFETIL 250 MG CAP PO SCH (21:36)
[2024-02-10 23:30] LABS: Troponin I High Sensitivity 24.3 pg/ml (0-20)
[2024-02-11 03:37] LABS: Hematocrit (blood only) 46.7 % (42.0-52.0); Hemoglobin 14.9 g/dl (14.0-18.0); Mean Corpuscular Hemoglobin 29.7 pg (25.0-34.0); Mean Corpuscular Hgb Conc 31.9 g/dL (32.0-36.0); Mean Corpuscular Volume 93.2 fL (80.0-100.0); Mean Platelet Volume 9.4 fL (9.4-12.4); Platelet Count 132 K/uL (130-400); RDW Coefficient of Variation 12.8 % (11.5-14.5); RDW Standard Deviation 43.8 fL (36.4-46.3); Red Blood Count 5.01 M/uL (4.70-6.10)
[2024-02-11 03:55] LABS: Calcium 9.3 mg/dl (8.6-10.3); Creatinine Clr Calc Pharmacy 29.6 ml/min; Magnesium 2.3 mg/dl (1.7-2.4); Potassium 3.6 mmol/L (3.5-5.1)
[2024-02-11] MEDS: PIPERACILLIN/TAZOBACTAM 4.5 GM/100 ML BAG IV SCH (04:37)
[2024-02-11 09:27] LABS: Hematocrit (blood only) 48.1 % (42.0-52.0); Hemoglobin 15.5 g/dl (14.0-18.0); Mean Corpuscular Hemoglobin 29.9 pg (25.0-34.0); Mean Corpuscular Hgb Conc 32.2 g/dL (32.0-36.0); Mean Corpuscular Volume 92.7 fL (80.0-100.0); Mean Platelet Volume 9.3 fL (9.4-12.4); Platelet Count 131 K/uL (130-400); RDW Coefficient of Variation 12.8 % (11.5-14.5); RDW Standard Deviation 43.3 fL (36.4-46.3); Red Blood Count 5.19 M/uL (4.70-6.10)
[2024-02-11 09:34] LABS: BUN Creatinine Ratio 35.4 (10-20); Calcium 9.5 mg/dl (8.6-10.3); Creatinine Clr Calc Pharmacy 27.8 ml/min; Magnesium 2.3 mg/dl (1.7-2.4); Potassium 3.9 mmol/L (3.5-5.1)
[2024-02-11] MEDS: SERTRALINE HCL 50 MG TABLET PO SCH (10:22)
[2024-02-11] MEDS: TACROLIMUS 1 MG CAP PO SCH (10:22)
[2024-02-11] MEDS: MEMANTINE HCL 10 MG TAB PO SCH (10:22)
--- OUTSIDE RECORDS SUMMARY | 2024-02-11 11:27 | External Medical Summary | Summary of Care ---
Author Name Unknown Organization [facility] Address [address] [facility] [place] [address] Phone [phone] Care Team Providers Care Biodiesel Engine Specialist Name Role Phone Lydia Dobbs MD Primary Care Provide r Reason for Visit * Reason Onset Date Comments Long Term Visit 02/09/2024 Encounter Details Date Type Department Care Team (Late st Contact Info) Description 02/09/2024 1:00 PM EST Long Term Visit [facility], [address] [place] [address] Arlen Canales PA-C [address] [place] [address] Malaise and fatigue*; Urinary tract infection associated with indwelling urethral catheter, subsequent encounter; Irregular cardiac rhythm Allergies Active Allergy Reactions Criticality Noted Date Comments Lisinopril 05/11/2010 cough documented as of this encounter (statuses as of 02/09/2024) Medications amLODIPine Besylate 5 MG Oral Tablet (Norvasc)Indicati ons:Hypertension goal BP (blood pressure) < 140/90 Take 1 Tablet by mouth in the morning. 30 Tablet 4 Active Brimonidine Tartrate 0.2 % Ophthalmic Solution (Alphagan)Indicat ions:Bilateral ocular hypertension Instill 1 Drop into both eyes at bedtime. 5 mL 4 Active Magnesium 400 MG Oral Tablet Take 400 mg by mouth every night at bedtime. 30 Tablet 4 Active Methenamine Hippurate 1 GM Oral Tablet (Hiprex)Indicatio ns:Recurrent UTI Take 1 Tablet by mouth in the morning and 1 Tablet before bedtime. 60 Tablet 4 Active Mycophenolate Mofetil 250 MG Oral Capsule (CellCept)Indicat ions:ADPKD (autosomal dominant polycystic kidney disease),S/p cadaver renal transplant Take 1 Capsule by mouth in the morning and 1 Capsule before bedtime. 60 Capsule 4 Active Tacrolimus 1 MG Oral Capsule (Prograf)Indicati ons:ADPKD (autosomal dominant polycystic kidney disease),S/p cadaver renal transplant Take 2 capsules in the morning and 1 capsule in the evening 90 Capsule 4 Active Calcium 500 MG Oral Tablet Take 1 Tablet by mouth in the morning and 1 Tablet before bedtime. 4 Active Memantine HCl 10 MG Oral Tablet Take 1 Tablet by mouth daily. 4 Active Sertraline HCl 50 MG Oral Tablet (Zoloft) Take 1.5 Tablets by mouth in the morning. 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 Renal lesion 02/09/2023 ADPKD (autosomal dominant polycystic kidney dise ase) 02/09/2023 A-V fistula 02/09/2023 History of nonmelanoma skin cancer 03/21/2017 Overview (03/21/2017): Hx of SCC on scalp - 2016 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 samaritan - 2016 Hx of BCC on right [...] photodamage of skin 09/11/2012 Seborrheic dermatitis 05/22/2012 Overview (11/28/2016): ICD-10 update of inactive term Actinic keratosis 05/22/2012 documented as of this encounter (statuses as of 02/09/2024) Resolved Problems Problem Noted Date Diagnosed Date Resolved Date Neoplasm of uncertain behavior of skin 03/18/2013 03/21/2017 History of squamous cell carcinoma 03/18/2013 03/21/2017 Other seborrheic keratosis 09/11/2012 0 03/21/2017 documented as of this encounter (statuses as of 02/09/2024) Immunizations Name Administration Dates Next Due COVID-19, LNP-s, No Preserve , Narinder-sucrose, Ages 12+ (Pfizer) 11/28/2023 Seasonal Influenza Vac., MDV, IM, 0.5 mL (Fluzon e) 11/30/2013 Seasonal Influenza, High Dos e, Trivalent, PF, IM (Fluzone HD) 11/28/2023 TDAP (age 10 and older)(Boostrix) 01/30/2023 documented as of this encounter Social History Tobacco Use Types Packs/Day Years Used Date Smoking Tobacco: Never Smokeless Tobacco: Never Alcohol Use Standard Drinks/Week Comments Not Currently 0 (1 standard drink = 0.6 oz pur e alcohol) rare Utilities Answer Date Recorded Do you have trouble paying y our heating, water, or electric bill? (Adult - for ages 18 years and over) Not on file 08/15/2023 Is your family able to pay t he heat, water, or electric bill? (Household - for ages 0-17 years) Not on file 08/15/2023 Does your family have access to good internet? (Household - for ages 0-17 years) Not on file 08/15/2023 Social Connections Answer Date Recorded How often do you feel lonely or isolated from those around you? (Adult - for ages 18 years and over) Not on file 08/15/2023 Sex and Gender Information Value Date Recorded Sex Assigned at Not on file Legal Sex Male 6:51 AM EST Gender Identity Not on file Sexual Orientation Not on file documented as of this encounter Last Filed Vital Signs Vital Sign Reading Time Taken Comments Blood Pressure 142/79 02/09/2024 1:53 PM EST Pulse 86 02/09/2024 1:53 PM EST Temperature 36.4 C (97.5 F) 02/09/2024 1:53 PM ES T Respiratory Rate 16 02/09/2024 1:53 PM EST Oxygen Saturation 96% 02/09/2024 1:53 PM EST room air Inhaled Oxygen Concentration - - Weight - - Height - - Body Mass Index - - documented in this encounter Plan of Treatment Health Maintenance Due Date Last Done Comments Depression Monitoring 1954 Albumin/Creatinine Ratio 1960 COVID-19 Vaccine ( season) 2024 11/28/2023, 08/24/2022, 12/14/2021, Additional history exists GFR 07/03/2024 01/04/2024, 09/0 07/2023, 10/27/2023, Additional history exists CKD PHOS USE SMARTSET 30224 10/11/2024 10/12/2023 CKD HGB USE SMARTSET 31133 01/03/202501/03, 01/04/2024, 10/27/2023, Additional history exists DTap/Tdap Vaccines (2 - Td or Tdap) 01/30/2033 01/30/2023 Zoster Vaccines Completed 03/20/2019, 10/24/2018 Pneumococcal Vaccine: 65+ Years Completed 04/12/2021, 12/09/2014 Influenza Vaccine (FLU shot) Completed 02/2023, 11/17/2019, 12/17/2018, Additional history exists HPV (Gardasil) Vaccine Aged Out No lo nger eligible based on patient's age to complete this topic Hepatitis B Vaccine Aged Out No longe r eligible based on patient's age to complete this topic MENINGOCOCCAL (MENACTRA/MENVEO) Aged Out No longer eligible based on patient's age to complete this topic documented as of this encounter Medical Devices Not on filedocumented as of this encounter Visit Diagnoses Diagnosis Malaise and fatigue- Primary Other malaise and fatigue Urinary tract infection associated with indwelling urethral catheter, subsequent encounter Irregular cardiac rhythm Cardiac dysrhythmia, unspecified documented in this encounter Care Teams Biodiesel Engine Specialist Relationship Specialty Start Date End Date Lydia Dobbs MD [address] [place] [address] PCP - General Internal Medicine 02/06/23 documented as of this encounter
--- OUTSIDE RECORDS SUMMARY | 2024-02-11 11:27 | External Medical Summary | Summary of Care ---
Author Name Unknown Organization [facility] Address [address] [facility] [place] [address] Phone [phone] Care Team Providers Care Inker And Opaquer Name Role Phone Lydia Dobbs MD Primary Care Provide r Encounter Details Date Type Department Care Team (Late st Contact Info) Description 02/03/2024 Result Scan Unspecified Department Arlen Canales PA-C [address] [place] [address] <No scans attached> Allergies Active Allergy Reactions Criticality Noted Date Comments Lisinopril 05/11/2010 cough documented as of this encounter (statuses as of 02/05/2024) Medications amLODIPine Besylate 5 MG Oral Tablet [...] as of this encounter (statuses as of 02/05/2024) Active Problems Problem Noted Date Diagnosed Date [...] 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 mormon - 2016 Hx of BCC on right [...] as of this encounter (statuses as of 02/05/2024) Resolved Problems Problem Noted Date Diagnosed Date Resolved Date Neoplasm of uncertain behavior of skin 03/18/2013 03/21/2017 History of squamous cell carcinoma 03/18/2013 03/21/2017 Other seborrheic keratosis 09/11/2012 0 03/21/2017 documented as of this encounter (statuses as of 02/05/2024) Immunizations Name Administration Dates Next Due Seasonal Influenza Vac., MDV, IM, 0.5 mL [...] as of this encounter Plan of Treatment Health Maintenance Due Date Last Done Comments Depression Monitoring 1954 Albumin/Creatinine Ratio 1960 COVID-19 Vaccine ( season) 2023 08/24/2022, 12/14/2021, 12/14/2021, Additional history exists GFR 07/03/2024 01/04/2024, 07/2023, 10/27/2023, Additional history exists CKD PHOS USE SMARTSET 96398 10/11/2024 10/12/2023 CKD HGB USE SMARTSET 63934 01/03/202501/03, 01/04/2024, 10/27/2023, Additional history exists DTap/Tdap [...] Not on filedocumented as of this encounter Procedures Procedure Name Priority Date/Time Associated Diagnosis Comments OUTSIDE LAB RESULTS 02/03/2024 documented in this encounter Results * OUTSIDE LAB RESULTS (02/03/2024) 02/03/2024 us Arlen Canales PA-C LABORATORY Final Re sult documented in this encounter Care Teams Inker And Opaquer Relationship Specialty Start Date End Date Lydia Dobbs MD [address] [facility] [address] PCP - General Internal Medicine 02/06/23 documented as of this encounter
--- OUTSIDE RECORDS SUMMARY | 2024-02-11 11:27 | External Medical Summary | Summary of Care ---
Author Name Unknown Organization [facility] Address [address] [facility] [place] [address] Phone [phone] Care Team Providers Care Die Drawing Checker Name Role Phone Lydia Dobbs MD Primary Care Provide r Reason for Visit * Reason Onset Date Comments Intermediate Visit 02/05/2024 Encounter Details Date Type Department Care Team (Late st Contact Info) Description 02/05/2024 8:45 AM EST Intermediate Visit [facility], [address] [place] [address] Arlen Canales PA-C [address] [place] [address] Urinary tract infection associated with indwelling urethral catheter, initial encounter ([facility])*; Stage 3b chronic kidney disease (HCC) Allergies Active Allergy Reactions Criticality Noted Date [...] 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 mandaen - 2016 Hx of BCC on right [...] 02/05/2024) Immunizations Name Administration Dates Next Due COVID-19, [...] Sign Reading Time Taken Comments Blood Pressure 142/75 02/05/2024 2:42 PM EST Pulse 89 02/05/2024 2:42 PM EST Temperature 36.6 C (97.8 F) 02/05/2024 2:42 PM ES T Respiratory Rate 18 02/05/2024 2:42 PM EST Oxygen Saturation 100% 02/05/2024 2:42 PM EST Inhaled Oxygen Concentration - - Weight - - Height - - Body Mass Index - - documented in this encounter Plan of Treatment Health Maintenance Due Date Last Done Comments Depression Monitoring 1954 Albumin/Creatinine Ratio 1960 COVID-19 Vaccine ( season) 2024 11/28/2023, 08/24/2022, 12/14/2021, Additional history exists GFR 07/03/2024 01/04/2024, 09/0 07/2023, 10/27/2023, Additional history exists CKD PHOS USE SMARTSET 76050 10/11/2024 10/12/2023 CKD HGB USE SMARTSET 35403 01/03/202501/03, 01/04/2024, 10/27/2023, Additional history exists DTap/Tdap [...] as of this encounter Visit Diagnoses Diagnosis Urinary tract infection associated with indwelling urethral catheter, initial encounter (HCC)- Primary Stage 3b chronic kidney disease (HCC) documented in this encounter Care Teams Die Drawing Checker Relationship Specialty Start Date End Date Lydia Dobbs MD [address] [place] [address] PCP - General Internal Medicine 02/06/23 documented as of this encounter
[2024-02-11] MEDS ORDERED: GLUCOSE 10 TAB/TUBE PO PRN (12:04)
[2024-02-11] MEDS ORDERED: GLUCAGON FOR INJ 1 MG VIAL SQ PRN (12:04)
[2024-02-11] MEDS ORDERED: GLUCOSE 40% GEL 15 GM TUBE PO PRN (12:04)
[2024-02-11] MEDS ORDERED: CARBOHYDRATES FOR HYPOGLYCEMIA PO PRN (12:04)
[2024-02-11] MEDS ORDERED: DEXTROSE 50% 50 ML SYRINGE IV PRN (12:04)
--- NOTE | 2024-02-11 12:33 | Hospitalist Progress Note ---
Date of Service February 11, 2024 Assessment & Plan (1) Acute dehydration: (2) Acute hypernatremia: (3) Acute renal failure superimposed on stage 3 chronic kidney disease: (4) Acute metabolic encephalopathy: (5) Catheter-associated urinary tract infection: (6) Mixed Alzheimer and vascular dementia: (7) Parkinsonism: (8) History of renal transplant: Plan Patient with acute metabolic encephalopathy in the setting of catheter associated UTI and severe dehydration hypernatremia. Resume D5W IV fluid resuscitation Monitor glucose and cover with insulin Monitor electrolytes and renal function Transition antibiotics to Rocephin based on sensitivities from outside urine cu lture performed on 02/03/2024 Therapies Updated son at bedside Giovani Fierro Admission and Anticipated Discharge Date Admission Date: February 10, 2024 Subjective Patient still somewhat lethargic and minimally interactive. No acute issues reported by nursing. Son at bedside reports that normally he is quite interactive and talkative. This is a definite change from his baseline Physical Exam Physical Exam: Constitutional: Drowsy, mildly ill in appearance HEENT: Mucous membranes dry Lungs: Clear to auscultation, decreased, no wheezes rales or rhonchi CV: S1-S2, regular Abdomen: Soft, nontender, nondistended Extremities: No significant edema Neuro: Drowsy. Generalized weakness, aphasia Psych: Cooperative Results & Data Results & Data Vital Signs (Past 12 Hours) Vital Signs Temp Pulse Pulse Resp BP Pulse Ox O2 Del Method 02/11/24 12:07 78 02/11/24 11:22 36.7 C 75 18 122/64 98 Room Air 02/11/24 07:19 36.3 C L 69 18 127/69 99 Room Air 02/11/24 07:14 Room Air 02/11/24 03:23 36.4 C L 85 18 123/63 97 Room Air Diagnostic Findings Reviewed imaging, laboratory and diagnostic studies. Pertinent findings as below. Reviewed outside urinary culture. Proteus. Sensitive to Rocephin Sodium 155 Chloride 122 Creatinine 1.8
[2024-02-11] MEDS: DEXTROSE 5% 500 ML IV SCH (13:09)
[2024-02-11] MEDS: cefTRIAXone SODIUM 1,000 MG/50 ML BAG IV SCH (14:09)
--- NOTE | 2024-02-11 16:29 | Nephrology Consultation ---
Date of Consultation February 11, 2024 Assessment & Plan (1) Hypernatremia: presenting sodium 157 yesterday afternoon;; so far about 1.9 L + on the admission; pt is unable to ask for water he has so far this admission had 1 L NS, 1L D5W and another 500 mL of D5 had 1/2 L D5W this PM and sNa improved only to 155 >>will give another 2L D5W at 125 mL hourly -reassess AM labs -encourage po intake >>? if pt needs to be fed or if this poor po intake is simply feature of his acute infection or progression of dementia (2) Acute renal failure superimposed on stage 3 chronic kidney disease: stage 1 nonoliguric TUNG slightly improved from presentation. UA difficult to interpret/chronically inflamed w/ chronic sherwood baseline creatinine 1.1-1.2. presenting creatinine 2 on 02/09 at 1300 >> small improvement to 1.8 today -daily bmp -strict I/O -encourage po and normalize sodium to improve MS and ability to communicate and take pills (3) Catheter-associated urinary tract infection: consider ID consultation; 02/02 proteus UTI; admission urine cx negative; blood cxs NGTD >>currently on ceftriaxone >f/u pending blood cultures (4) History of renal transplant: -cell cept on hold which is reasonable for now -routine tacro dosing to continue >>>>>>however I note he's not getting tac b/c of difficulty swallowing >> will d/w pharmacy about SL versus IV dosing, neither of which is optimal >>tacro level drawn at 0300 02/10 will not be a reliable trough d/t missed dose(S) and timing of draw >>need records from [facility] of whether he was taking these (5) TUNG (acute kidney injury): History of Present Illness Reason for Consultation: TUNG, hypernatremia, renal transplant Requesting Physician: Dr Dominique Attending Physician: Emmanuel Wyatt DO History of Present Illness 83 y/o M whom I'm asked to see for TUNG, hypernatremia, renal transplant status was admitted last evening for same in the setting of complicated UTI after presenting with progressive confusion and lethargy. 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 prior to admission he'd been on augmentin x 4 days for UTI after nonresolution of sx w/ cipro course. He is a [facility] resident. he is unable to speak intelligibly to me on evaluation so i cannot obtain ROS, though he does attempt to speak. no known h/o f/c. + reports per H&P of poor intake prior to admissoin. Allergies Allergy/AdvReac Type Severity Reaction Status Date / Time lisinopril AdvReac Intermediate Cough Verified 12/04/23 10:10 Home Medications Medication Instructions Recorded Confirmed Type brimonidine 0.2 % eye drops 1 drp OPB HS #15 mL 12/01/22 02/10/24 Rx magnesium oxide 400 mg PO HS 12/02/22 02/10/24 History amlodipine 5 mg tablet 5 mg PO DAILY #90 tabs 01/09/23 02/10/24 Rx methenamine hippurate 1 gram tablet 1 g PO BID #0 tabs 02/06/23 02/10/24 Rx mycophenolate mofetil 250 mg 250 mg PO BID #60 ea 02/10/23 02/10/24 Rx capsule sertraline 50 mg tablet 75 mg PO DAILY 04/17/23 02/10/24 History acetaminophen 325 mg tablet 650 mg PO Q4 PRN Fever Or Pain 05/21/23 02/10/24 History docusate sodium 100 mg capsule 100 mg PO Q24H PRN constipation on 05/21/23 02/10/24 History (Colace) day 2 no BM in the AM tacrolimus 1 mg capsule, 1 mg PO HS 05/21/23 02/10/24 History immediate-release tacrolimus 1 mg capsule, 2 mg PO QAM 05/21/23 02/10/24 History immediate-release calcium carbonate (Oyster Shell 500 mg PO BID 06/20/23 02/10/24 History Calcium) bisacodyl 10 mg rectal suppository 10 mg VA DAILY PRN 4th day of no 08/09/23 02/10/24 History (Dulcolax (bisacodyl)) BM in AM polyethylene glycol 3350 17 17 g PO DAILY PRN No BM for 3 days 08/09/23 02/10/24 History gram/dose oral powder memantine 10 mg tablet 10 mg PO QAM 10/31/23 02/10/24 History acetaminophen 650 mg rectal 650 mg VA Q4H PRN Fever Or Pain 02/10/24 02/10/24 History suppository amoxicillin 875 mg-potassium 1 tab PO Q12H 02/10/24 02/10/24 History clavulanate 125 mg tablet Patient History Medical History Encephalopathy Hypertension Chronic indwelling Sherwood catheter Mild cognitive impairment Pre-syncope Hx of basal cell carcinoma AV fistula LEFT ARM>HAD DIALYSIS BEFORE KIDNEY *2006 [place] FOR 5 MONTHS Hx of squamous cell carcinoma Unintentional weight loss Hearing deficit Obstructive sleep apnea unable to tolerate cpap machine. Surgical History Renal transplant recipient History of cataract surgery RT/LEFT H/O right inguinal hernia repair S/P kidney transplant 2005 at [facility] [place] r/t polycystic kidney History of colonoscopy Status post Mohs surgery H/O transurethral resection of prostate Family History Grandfather (Maternal) Cardiac disorder Grandmother (Paternal) Cardiac disorder Grandfather (Paternal) Cardiac disorder Mother Cardiac disorder Hypertension Grandmother (Maternal) Diabetes Brother Hypertension Sister Renal transplant, status post Hypertension Other No family history of adverse response to anesthesia Social History Smoking Status: Former smoker Tobacco Type: Cigarettes Second Hand Exposure: No; Do You Dip or Chew Tobacco: No; Tobacco Cessation Education Requested by Patient: No Hx Alcohol Use: No Hx Substance Use: No Preferred Language: Arabic Communication Ability: Impaired Visual Impairment: No Limitations Hearing Ability: Normal 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 Beliefs That Will Affect Care: None marital status: Current Living Situation: [facility] current occupational status: retired How many Children do You have: 2 Other Information That Helps Us Care for You: No Feels Safe at Home: Yes Safety Concerns: Feels Safe At This Time Diet: regular during the past year weight has: decreased > 10 lbs Dental Care, Regularly: No Seatbelt Use: always Sunscreen Use: Yes Assistive Devices: Glasses Review of Systems 2 Review of Systems: Other (unobtainable d/t clinical status, pt cannot communicate w/ me or verbalize sx/concerns) Physical Exam 2 Constitutional: well developed, + cachectic, + frail appearing and cooperative; no acute distress Eyes: EOM intact bilaterally ENMT: Mouth: + dry oral mucous membranes (exceptionally) Respiratory: normal respiratory effort Auscultation: + diminished lung sounds Cardiovascular: RRR, no murmur, no edema Gastrointestinal (Abdomen): Inspection/Auscultation: normal bowel sounds P ercussion/Palpation: abdomen soft (RLQ palpable/ NT allograft); abdomen nontender Musculoskeletal: Extremities: strength 5/5 throughout Skin: no rashes, warm and dry Neurologic: arguelles, makes sounds but I cannot make out words; no tremor Results & Data Vital Signs (Past 12 Hours) Vital Signs Temp Pulse Pulse Resp BP Pulse Ox O2 Del Method 02/11/24 15:46 36.3 C L 62 20 131/63 97 Room Air 02/11/24 12:07 78 02/11/24 11:22 36.7 C 75 18 122/64 98 Room Air 02/11/24 07:19 36.3 C L 69 18 127/69 99 Room Air 02/11/24 07:14 Room Air Laboratory Results 02/11/24 09:00 02/11/24 17:12 Diagnostic Findings CXR w/o acute CP dz
[2024-02-11 17:54] LABS: BUN Creatinine Ratio 35.8 (10-20); Calcium 9.2 mg/dl (8.6-10.3); Creatinine Clr Calc Pharmacy 29.1 ml/min; Potassium 3.9 mmol/L (3.5-5.1)
[2024-02-11] MEDS: INSULIN ASPART PER UNIT CHARGE SC SCH (18:11)
[2024-02-11] MEDS: DEXTROSE 5% 1,000 ML IV SCH (21:28)
[2024-02-12] MEDS: INSULIN ASPART PER UNIT CHARGE SC SCH ×2 (00:02→21:21)
--- NOTE | 2024-02-12 05:45 | Electrocardiogram Report ---
Test Reason : Blood Pressure : */* mmHG Vent. Rate : 92 BPM Atrial Rate : 92 BPM P-R Int : 158 ms QRS Dur : 78 ms QT Int : 362 ms P-R-T Axes : 12 -8 27 degrees QTcB Int : 447 ms Sinus rhythm with marked sinus arrhythmia Premature atrial complexes Otherwise normal ECG When compared with ECG of 20-Jun-2023 18:05, No significant change Confirmed by Sandor Chavis ([id number]) on 02/12/2024 5:44:44 AM Referred By: REFERRED SELF Confirmed By: Sandor Chavis
[2024-02-12 08:15] LABS: Hematocrit (blood only) 44.5 % (42.0-52.0); Hemoglobin 14.3 g/dl (14.0-18.0); Mean Corpuscular Hemoglobin 29.8 pg (25.0-34.0); Mean Corpuscular Hgb Conc 32.1 g/dL (32.0-36.0); Mean Corpuscular Volume 92.7 fL (80.0-100.0); Mean Platelet Volume 9.2 fL (9.4-12.4); Platelet Count 116 K/uL (130-400); RDW Coefficient of Variation 12.7 % (11.5-14.5); RDW Standard Deviation 43.5 fL (36.4-46.3); White Blood Count 8.19 K/ul (4.8-10.8)
[2024-02-12 08:31] LABS: BUN Creatinine Ratio 34.9 (10-20); Calcium 8.9 mg/dl (8.6-10.3); Creatinine Clr Calc Pharmacy 33.4 ml/min; Potassium 3.4 mmol/L (3.5-5.1)
[2024-02-12] MEDS ORDERED: PNEUMOCOCCAL VACCINE (PCV20) 20-VAL CONJ-DIP CRM/PF 0.5 ML SYR IM ONE (09:14)
--- NOTE | 2024-02-12 11:00 | Hospitalist Progress Note ---
Date of Service February 12, 2024 Assessment & Plan (1) Acute dehydration: (2) Acute hypernatremia: (3) Acute renal failure superimposed on stage 3 chronic kidney disease: (4) Acute metabolic encephalopathy: (5) Catheter-associated urinary tract infection: (6) Mixed Alzheimer and vascular dementia: (7) Parkinsonism: (8) History of renal transplant: Plan Patient with acute dehydration with severe hyponatremia and acute kidney injury in the setting of most likely poor oral intake from catheter associated urinary tract infection Continue D5W Replace potassium Continue ceftriaxone based on close urine culture growing Proteus on 02/03/2024 Continue to monitor mental status. Suspect his mental status improved as his hydration status improved Communication with the nurse. Was able to get patient awake enough to take medications, trial pured diet Updated patient's son Enrique via phone. He did call to [facility]. Spoke with nursing supervisor throwing department. Unclear if the patient has been eating or drinking adequately for the last several days. Admission and Anticipated Discharge Date Admission Date: February 10, 2024 Subjective Patient continues to be encephalopathic and minimal interaction and response Physical Exam Physical Exam: Constitutional: Lethargic, frail in appearance HEENT: Mucous membranes dry Lungs: Clear to auscultation, decreased, no wheezes rales or rhonchi CV: S1-S2, regular Abdomen: Soft, nontender, nondistended Extremities: No significant edema Neuro: No focal deficits, minimally responsive, generalized weakness Psych: Cooperative, Results & Data Results & Data Vital Signs (Past 12 Hours) Vital Signs Temp Pulse Resp BP Pulse Ox O2 Del Method 02/12/24 08:00 Room Air 02/12/24 06:00 36.7 C 71 20 124/81 99 Room Air 02/12/24 00:32 36.9 C 79 16 136/76 98 Room Air Diagnostic Findings Aries diagnostics Urine culture no growth Creatinine 1.52 improved Chloride 117 improved Sodium 149 improved Hemoglobin 14.3 WBCs 8.1, improved
[2024-02-12] MEDS: POTASSIUM CHLORIDE / WTR 10 MEQ/100 ML PLCT IV SCH (11:58)
--- NOTE | 2024-02-12 13:13 | Nephrology Progress Note ---
Date of Service February 12, 2024 Assessment & Plan Admission and Anticipated Discharge Date Admission Date: February 10, 2024 Subjective Assessment & Plan (1) Hypernatremia: presenting sodium 89 y and on D5w and still high at 149. No PO intake. Unresponsive and terminal dementia. potassium is also low and he did receive IV potassium Such hypernatremia in patient with dementia is a terminal feature and he needs Palliative medicine Consult, since the underlying cause is not possible to get better. till then will continue IV fluid at the current rate D5 water with kcl 20 at 100 mL/hour (2) Acute renal failure superimposed on stage 3 chronic kidney disease: nonoliguric TUNG slightly improved from presentation. UA difficult to interpret/chronically inflamed w/ chronic sherwood baseline creatinine 1.1-1.2. presenting creatinine 2 on 02/09 at 1300 >> small improvement to 1.5 today and will improve further with IVF (3) Catheter-associated urinary tract infection: consider ID consultation; 02/02 proteus UTI; admission urine cx negative; blood cxs NGTD currently on ceftriaxone f/u pending blood cultures (4) History of renal transplant: cell cept on hold which is reasonable for now Was able to give the tacrolimus with apple sauce with assist earlier today. Can also try Tacrolimus suspension. S---Unable to review. Patient is Nonverbal with a advanced dementia physical examination nonverbal and unresponsive mucous membrane very dry with mouth open chest bilateral diminished breath sound CVS S1-S2 regular. Soft systolic murmur heard abdomen is soft nontender extremities without edema Results & Data Vital Signs (Past 12 Hours) Vital Signs Temp Pulse Resp BP Pulse Ox O2 Del Method 02/12/24 08:00 Room Air 02/12/24 06:00 36.7 C 71 20 124/81 99 Room Air
[2024-02-12] MEDS: POTASSIUM CHLORIDE 20 MEQ in DEXTROSE 5% 1,000 ML IV SCH (14:47)
[2024-02-12 16:39] LABS: BUN Creatinine Ratio 33.1 (10-20); Calcium 8.6 mg/dl (8.6-10.3); Creatinine Clr Calc Pharmacy 33.6 ml/min; Potassium 4.3 mmol/L (3.5-5.1)
[2024-02-13 08:12] LABS: BUN Creatinine Ratio 33.6 (10-20); Calcium 8.7 mg/dl (8.6-10.3); Creatinine Clr Calc Pharmacy 36.4 ml/min; Magnesium 1.9 mg/dl (1.7-2.4); Potassium 4.1 mmol/L (3.5-5.1)
[2024-02-13] MEDS: DEXTROSE 5% 1,000 ML IV SCH (08:49)
--- NOTE | 2024-02-13 10:09 | Nephrology Progress Note ---
Date of Service February 13, 2024 Assessment & Plan Admission and Anticipated Discharge Date Admission Date: February 10, 2024 Subjective Assessment & Plan (1) Hypernatremia: presenting sodium 89 y and on D5w and still high at 147. No PO intake. Unresponsive and terminal dementia. such hypernatremia in patient with dementia is a terminal feature and he needs Palliative medicine Consult, since the underlying cause is not possible to get better. till then will continue IV fluid at the current rate D5 water at 100 mL/hour (2) Acute renal failure superimposed on stage 3 chronic kidney disease: nonoliguric TUNG slightly improved from presentation. UA difficult to interpret/chronically inflamed w/ chronic sherwood baseline creatinine 1.1-1.2. presenting creatinine 2 on 02/09 at 1300 >> small improvement to 1.4 today and will improve further with IVF (3) Catheter-associated urinary tract infection: consider ID consultation; 02/02 proteus UTI; admission urine cx negative; blood cxs NGTD currently on ceftriaxone (4) History of renal transplant: cell cept on hold which is reasonable for now Was able to give the tacrolimus with apple sauce with assist earlier today. Can also try Tacrolimus suspension. S---Unable to review. Patient eyes are open today but still did not answer questions. Ate breakfast but not last night. Advanced dementia physical examination nonverbal and unresponsive mucous membrane very dry with mouth open chest bilateral diminished breath sound CVS S1-S2 regular. Soft systolic murmur heard abdomen is soft nontender extremities without edema Results & Data Vital Signs (Past 12 Hours) Vital Signs Temp Pulse Resp BP Pulse Ox O2 Del Method 02/13/24 07:40 Room Air 02/13/24 07:24 36.8 C 77 18 121/60 98 Room Air
--- NOTE | 2024-02-13 12:15 | Hospitalist Progress Note ---
Date of Service February 13, 2024 Assessment & Plan (1) Acute dehydration: (2) Acute hypernatremia: (3) Acute renal failure superimposed on stage 3 chronic kidney disease: (4) Acute metabolic encephalopathy: (5) Catheter-associated urinary tract infection: (6) Mixed Alzheimer and vascular dementia: (7) Parkinsonism: (8) History of renal transplant: Plan Patient remains significantly encephalopathic. Not awake and alert enough to maintain adequate hydration on his own. Extensive review of EMR, patient has known mixed dementia which appears to have progressed over the last few weeks. Hypernatremia dehydration in the setting of dementia is uremic concerning. Suspect patient will not be able to maintain adequate oral intake to prevent the recurrence of his renal failure, dehydration, hypernatremia. Communication with nephrology, confirms poor prognosis of the hypernatremia acute kidney injury in the setting of dementia Phone conversation with the patient's son reviewed my concerns of the patient's progressive dementia and recurrence for this cycle of dehydration and hypernatremia. Son states that the last time he discussed advanced directives with his dad he still wanted full interventions with the exception of hemodialysis. He understands that to maintain adequate nutrition and hydration a feeding tube could be considered. However, son was open to discussing more of a palliative approach and is interested in palliative care perspective. Consult palliative care, Dr. Whitney notified Continue IV hydration while family going through decision making process of goals of care Monitor electrolytes and renal function Oral intake as tolerated pending patient's mental status. 54 minutes spent in evaluation the bedside, reviewing the records, coordinating care, communication with family, communication with medical team and specialists Admission and Anticipated Discharge Date Admission Date: February 10, 2024 Subjective Patient minimally responsive, opens eyes. Awake enough at times to take medicines occasionally. Minimal diet intake Physical Exam Physical Exam: Constitutional: Somnolent and lethargic barely opens eyes, underweight, frail HEENT: Mucous membranes very dry Lungs: Decreased and coarse CV: S1-S2, regular Abdomen: Soft, nontender, nondistended Extremities: No significant edema Neuro: Lethargic, nonverbal Psych: Dementia Results & Data Results & Data Vital Signs (Past 12 Hours) Vital Signs Temp Pulse Resp BP Pulse Ox O2 Del Method 02/13/24 07:40 Room Air 02/13/24 07:24 36.8 C 77 18 121/60 98 Room Air Diagnostic Findings Reviewed imaging, laboratory and diagnostic studies. Pertinent findings as below. Sodium 147 Potassium 4.1 Chloride 117 Creatinine 1.43, improving
--- NOTE | 2024-02-13 14:32 | Palliative Care Consultation ---
Date of Consultation February 13, 2024 Assessment & Plan (1) Generalized muscle weakness: (2) Dementia: Dementia behavioral or psychological symptom: without behavioral, psychotic, or mood disturbance or anxiety Dementia severity: moderate Dementia type: unspecified type Qualified Code(s): F03.B0 - Unspecified dementia, moderate, without behavioral disturbance, psychotic disturbance, mood disturbance, and anxiety (3) Discussion about advance care planning held with family member: Telephonic ACP with liang Nunez ([facility]) and Joce ([place]) x 30min Lengthy discussion re ACP, goals, code status, dementia/mixed type, progressive dehydration/hypernatremia/TUNG,declining PS They did not have a strong understanding of dementia, so we spent a substantial amount of time discussing the nature of progressive mixed dementia: Mixed dementia is a condition in which a person has more than one type of dementia. A combination of Alzheimers disease and vascular dementia is the most common type.which is incurable and irreversible, and can include progressive/worsening memory loss, confusion, language difficulties/lack of comprehension skills/loss of verbal skills eventually, mood changes, impaired judgment, trouble with motor skills/coordination/balance issues, visual and spatial problems, hallucinations, and personality changes. The rate of progression in mixed dementia can vary widely from person to person. Factors such as the types of dementia involved, overall health, and genetics can influence the speed of progression. Some individuals experience a more gradual decline, while others may progress more rapidly through the stages. we discussed how Alzheimers disease is caused by a build-up of faulty proteins in and around brain cells. The most common and well-known symptom of Alzheimers disease is having problems with memory particularly memories of recent events or conversations and a person with Alzheimers is likely to get lost easily, hav e trouble finding words when theyre speaking and become confused about time or place. The vascular part of mixed dementia is caused by problems with the supply of blood throughout the brain, which can be caused by a stroke/when blood vessels in the brain become blocked or bleed but more often its caused by thousands of tiny and fragile blood vessels in the brain gradually becoming damaged and worn out over time which in turn causes vascular disease to stop brain cells from getting the oxygen and nutrients they need to work properly. We spoke about the stages of mixed dementia: Stage 1: Normal Functioning: In the early stage, individuals show no signs of dementia, and their cognitive function is normal Stage 2: Very Mild Cognitive Decline: Minor memory lapses and forgetfulness may occur but are often attributed to normal aging Stage 3: Mild Cognitive Decline: Early signs of dementia become more noticeable, such as memory problems and difficulty finding words Stage 4: Moderate Cognitive Decline: Memory loss becomes more pronounced, and individuals may struggle with tasks like managing finances and planning Stage 5: Moderately Severe Cognitive Decline: Daily functioning becomes challenging, and individuals may require assistance with tasks like dressing and bathing Stage 6: Severe Cognitive Decline: In this stage, individuals need substantial help with daily activities, and communication becomes increasingly difficult Stage 7: Very Severe Cognitive Decline: In the final stage, individuals may lose the ability to communicate, walk, and perform basic tasks. They require [id number] care. I reviewed pt is in Stage 6-7 and likely turning a page to the more advanced stages of dementia which are creating the problems with poor oral intake leading to dehydration complicating recurrent UTIs and TUNG in landscape of renal transplant and chronic immunosuppression it is cyclical and progressive, unfortunately, and trying to "fix" any one thing will not cure/reverse/fix the other underlying chronic issues. we discussed CPR and survival: Only about 10% of patients who have [id number] sudden cardiac arrest survive to hospital discharge, with many survivors having neurologic impairment. This rate is even lower among patients with serious coexisting conditions, ie chance of survival to hospital discharge for in-hospital CPR in older people is low to moderate (15%) and decreases with age, comorbidities, performance status and frailty: for pts > 70 yo, more than half of the patients who initially survived resuscitation in the hospital before hospital discharge. The pooled survival to discharge after in-hospital CPR was 18% for patients between 70 and 79 years old, 15% for patients between 80 and 89 years old and 11% for patients of 90 years and older. I advised them CPR at this stage with this chronic complexity and burden of illness in an 83yo gentleman with medical frailty/recurrent infections and admissions will not "improve" him and if he were to survive the CPR then he would recover to a new, lower baseline. Joce had stronger opinion that these were all fixable issues and he feels pt can recover. He would like more input from patient's intermediate school teacher nephro physician and I have sent a message asking for same at Joce's request. I encouraged them to discuss the above as a family tonight and updated primary team tomorrow with decision re code status and we also agreed to a Zoom family meeting at 1pm to follow up on the goals of care/adv care planning focuses for pt. Meeting link sent to [email or web address] as directed by son, Enrique. he will share with additional family. (4) Palliative care by specialist: Introduced Palliative Medicine and explained our role in patient's care. Patient and/or family were receptive to palliative services for goals of care discussions. Reviewed we are different from hospice, a home health nurse visiting service. (5) Physical deconditioning: Plan As above Thank you for allowing us to participate in the ongoing care of this patient. Please page with any additional concerns. Casa Bauer DNP Director, Palliative Medicine History of Present Illness Reason for Consultation: dementia, goals of care Attending Physician: Emmanuel Wyatt, History of Present Illness Mr. 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 His mixed dementia appears to have progressed over the last few weeks. He has a chronic sherwood with hx recurrent UTIs, most recently on a course of Cipro but unfortunately urine culture returned showing resistance to this antibiotic and he was switched to Augmentin 02/05 or thereabouts In spite of treatment, he had worsening mentation and lethargy. He has not been very verbal with medical teams Active issues this admission included: hypernatremia, dehydration, acute metabolic encephalopathy secondary to hyponatremia, UTI, declining PS d/t poor oral intake + Protein calorie malnutrition BMI 19 Pt unable to take adequate PO/does not ask for water/will not accept many times when offered; medical teams expressed concern that this poor po intake may be a feature of his acute infection and/or progression of dementia. Unfortunately, overall poor prognosis of the hypernatremia acute kidney injury in the setting of dementia CellCept was held due to TUNG from acute dehydration + UTI Ongoing issues with hypernatremia in spite of treatment, nephro notes "presenting sodium 89 y and on D5w and still high at 147. No PO intake. Unresponsive and terminal dementia. such hypernatremia in patient with dementia is a terminal feature and he needs Palliative medicine Consult, since the underlying cause is not possible to get better. till then will continue IV fluid at the current rate D5 water at 100 mL/hour" Allergies Allergy/AdvReac Type Severity Reaction Status Date / Time lisinopril AdvReac Intermediate Cough Verified 12/04/23 10:10 Home Medications Medication Instructions Recorded Confirmed Type brimonidine 0.2 % eye drops 1 drp OPB HS #15 mL 12/01/22 02/10/24 Rx magnesium oxide 400 mg PO HS 12/02/22 02/10/24 History amlodipine 5 mg tablet 5 mg PO DAILY #90 tabs 01/09/23 02/10/24 Rx methenamine hippurate 1 gram tablet 1 g PO BID #0 tabs 02/06/23 02/10/24 Rx mycophenolate mofetil 250 mg 250 mg PO BID #60 ea 02/10/23 02/10/24 Rx capsule sertraline 50 mg tablet 75 mg PO DAILY 04/17/23 02/10/24 History acetaminophen 325 mg tablet 650 mg PO Q4 PRN Fever Or Pain 05/21/23 02/10/24 History docusate sodium 100 mg capsule 100 mg PO Q24H PRN constipation on 05/21/23 02/10/24 History (Colace) day 2 no BM in the AM tacrolimus 1 mg capsule, 1 mg PO HS 05/21/23 02/10/24 History immediate-release tacrolimus 1 mg capsule, 2 mg PO QAM 05/21/23 02/10/24 History immediate-release calcium carbonate (Oyster Shell 500 mg PO BID 06/20/23 02/10/24 History Calcium) bisacodyl 10 mg rectal suppository 10 mg ID DAILY PRN 4th day of no 08/09/23 02/10/24 History (Dulcolax (bisacodyl)) BM in AM polyethylene glycol 3350 17 17 g PO DAILY PRN No BM for 3 days 08/09/23 02/10/24 History gram/dose oral powder memantine 10 mg tablet 10 mg PO QAM 10/31/23 02/10/24 History acetaminophen 650 mg rectal 650 mg ID Q4H PRN Fever Or Pain 02/10/24 02/10/24 History suppository amoxicillin 875 mg-potassium 1 tab PO Q12H 02/10/24 02/10/24 History clavulanate 125 mg tablet Patient History Medical History Encephalopathy Hypertension Chronic indwelling Sherwood catheter Mild cognitive impairment Pre-syncope Hx of basal cell carcinoma AV fistula LEFT ARM>HAD DIALYSIS BEFORE KIDNEY *2005 [place] FOR 5 MONTHS Hx of squamous cell carcinoma Unintentional weight loss Hearing deficit Obstructive sleep apnea unable to tolerate cpap machine. Surgical History Renal transplant recipient History of cataract surgery RT/LEFT H/O right inguinal hernia repair [place] [facility] [place] History of colonoscopy Status post Mohs surgery H/O transurethral resection of prostate Family History Grandfather (Maternal) Cardiac disorder Grandmother (Paternal) Cardiac disorder Grandfather (Paternal) Cardiac disorder Mother Cardiac disorder Hypertension Grandmother (Maternal) Diabetes Brother Hypertension Sister Renal transplant, status post Hypertension Other No family history of adverse response to anesthesia Social History Smoking Status: Former smoker Tobacco Type: Cigarettes Second Hand Exposure: No; Do You Dip or Chew Tobacco: No; Tobacco Cessation Education Requested by Patient: No Hx Alcohol Use: No Hx Substance Use: No Preferred Language: Lithuanian Communication Ability: Impaired Visual Impairment: No Limitations Hearing Ability: Normal Training Personnel Supervisor Required: No Beliefs That Will Affect Care: None marital status: Current Living Situation: Skilled Nursing and Personal Care Facility current occupational status: retired How many Children do You have: 2 Other Information That Helps Us Care for You: No Feels Safe at Home: Yes Safety Concerns: Feels Safe At This Time Diet: regular during the past year weight has: decreased > 10 lbs Dental Care, Regularly: No Seatbelt Use: always Sunscreen Use: Yes Assistive Devices: Glasses Review of Systems Review of Systems: Unobtainable due to cognitive status Physical Exam Physical Exam: Frail, chronically ill appearing elderly male confused at baseline Unable to provide HPI Bitemp wasting perrla Unable to follow commands MM dry, dentition fair neck without stridor lungs diminished, scatt coarse breath sounds s1s2 abd soft, NTP no gross edema BLE lethargic, non verbal with me, unable to follow commands skin pale Results & Data Vital Signs (Past 12 Hours) Vital Signs Temp Pulse Pulse Resp BP Pulse Ox O2 Del Method 02/13/24 13:54 36.6 C 78 18 116/61 99 Room Air 02/13/24 07:40 Room Air 02/13/24 07:24 36.8 C 77 18 121/60 98 Room Air Laboratory Results 02/13/24 02/13/24 02/13/24 Range/Units 11:35 08:01 06:55 WBC (4.8-10.8) K/ul RBC (4.70-6.10) M/uL Hgb (14.0-18.0) g/dl POC Hgb (14.0-18.0) g/dl Hct (42.0-52.0) % POC Hct (42-52) % MCV (80.0-100.0) fL MCH (25.0-34.0) pg MCHC (32.0-36.0) g/dL RDW Std Deviation (36.4-46.3) fL RDW Coeff of Reema (11.5-14.5) % Plt Count (130-400) K/uL MPV (9.4-12.4) fL Immature Gran % (Auto) % Neut % (Auto) % Lymph % (Auto) % [place] % (Auto) % Eos % (Auto) % Baso % (Auto) % Neut # (Auto) (1.40-6.50) K/uL Lymph # (Auto) (1.20-3.40) K/uL [place] # (Auto) (0.11-0.59) K/uL Eos # (Auto) (0.00-0.50) K/uL Baso # (Auto) (0.00-0.20) K/uL Immature Gran # (Auto) (0.01-0.20) K/uL VBG pH VBG pCO2 VBG pO2 VBG HCO3 VBG O2 Saturation VBG Base Excess Barometric Pressure POC Sodium (135-144) mmol/L Sodium 147 H (136-145) mmol/L POC Potassium (3.3-5.0) mmol/L Potassium 4.1 (3.5-5.1) mmol/L POC Chloride (101-112) mmol/L Chloride 117 H (98-107) mmol/L Carbon Dioxide 25 (21-32) mmol/L POC Total CO2 (24-31) mmol/L Anion Gap 5 (3-11) POC Anion Gap (16-25) mmol/L POC BUN (7-18) mg/dl BUN 48 H (6-23) mg/dl Creatinine 1.43 H (0.6-1.4) mg/dl POC Creatinine (0.6-1.3) mg/dl Est Cr Clr Drug Dosing 36.4 ml/min eGFR 49.23 BUN/Creatinine Ratio 33.6 H (10-20) Glucose 134 H (70-99(Fasting)) mg/dl POC Glucose 135 H 113 H (70-99) mg/dl POC Glucose (other) (70-99) mg/dl Lactate (0.4-2.0) mmol/L Calcium 8.7 (8.6-10.3) mg/dl POC Ioniz Calcium Pia (1.12-1.32) mmol/l Magnesium 1.9 (1.7-2.4) mg/dl Total Bilirubin (0.2-1.0) mg/dl AST (13-39) U/L ALT (7-52) U/L Alkaline Phosphatase (34-104) U/L Ammonia (18-72) umol/L Troponin I High Sens (0-20) pg/ml Total Protein (6.0-8.3) gm/dl Albumin (3.4-5.0) gm/dl Globulin (2.5-4.0) gm/dl Albumin/Globulin Ratio (0.9-2) TSH (0.300-4.500) uIu/ml Urine Color Urine Appearance (Clear) Urine pH (4.5-7.5) Ur Specific Treichlers (1.000-1.030) Urine Protein (Negative) Urine Glucose (UA) (Negative) Urine Ketones (Negative) Urine Blood (Negative) Urine Nitrite (Negative) Urine Bilirubin (Negative) Urine Urobilinogen (Negative) Ur Leukocyte Esterase (Negative) Urine WBC (Auto) (0-5) /hpf Urine RBC (Auto) (0-2) /hpf U Hyaline Cast (Auto) (0-2) /lpf U Epithel Cells (Auto) (0-2) /hpf Urine Bacteria (Auto) (None Seen) Amorphous Sediment (None Prsent) Tacrolimus SARS-CoV-2, RNA, NAAT (NEGATIVE) 02/12/24 02/12/24 02/12/24 Range/Units 20:14 16:49 16:02 WBC (4.8-10.8) K/ul RBC (4.70-6.10) M/uL Hgb (14.0-18.0) g/dl POC Hgb (14.0-18.0) g/dl Hct (42.0-52.0) % POC Hct (42-52) % MCV (80.0-100.0) fL MCH (25.0-34.0) pg MCHC (32.0-36.0) g/dL RDW Std Deviation (36.4-46.3) fL RDW Coeff of Reema (11.5-14.5) % Plt Count (130-400) K/uL MPV (9.4-12.4) fL Immature Gran % (Auto) % Neut % (Auto) % Lymph % (Auto) % [place] % (Auto) % Eos % (Auto) % Baso % (Auto) % Neut # (Auto) (1.40-6.50) K/uL Lymph # (Auto) (1.20-3.40) K/uL [place] # (Auto) (0.11-0.59) K/uL Eos # (Auto) (0.00-0.50) K/uL Baso # (Auto) (0.00-0.20) K/uL Immature Gran # (Auto) (0.01-0.20) K/uL VBG pH VBG pCO2 VBG pO2 VBG HCO3 VBG O2 Saturation VBG Base Excess Barometric Pressure POC Sodium (135-144) mmol/L Sodium 145 (136-145) mmol/L POC Potassium (3.3-5.0) mmol/L Potassium 4.3 D (3.5-5.1) mmol/L POC Chloride (101-112) mmol/L Chloride 115 H (98-107) mmol/L Carbon Dioxide 24 (21-32) mmol/L POC Total CO2 (24-31) mmol/L Anion Gap 6 (3-11) POC Anion Gap (16-25) mmol/L POC BUN (7-18) mg/dl BUN 50 H (6-23) mg/dl Creatinine 1.51 H (0.6-1.4) mg/dl POC Creatinine (0.6-1.3) mg/dl Est Cr Clr Drug Dosing 33.6 ml/min eGFR 46.11 BUN/Creatinine Ratio 33.1 H (10-20) Glucose 236 H (70-99(Fasting)) mg/dl POC Glucose 129 H 136 H (70-99) mg/dl POC Glucose (other) (70-99) mg/dl Lactate (0.4-2.0) mmol/L Calcium 8.6 (8.6-10.3) mg/dl POC Ioniz Calcium Pia (1.12-1.32) mmol/l Magnesium (1.7-2.4) mg/dl Total Bilirubin (0.2-1.0) mg/dl AST (13-39) U/L ALT (7-52) U/L Alkaline Phosphatase (34-104) U/L Ammonia (18-72) umol/L Troponin I High Sens (0-20) pg/ml Total Protein (6.0-8.3) gm/dl Albumin (3.4-5.0) gm/dl Globulin (2.5-4.0) gm/dl Albumin/Globulin Ratio (0.9-2) TSH (0.300-4.500) uIu/ml Urine Color Urine Appearance (Clear) Urine pH (4.5-7.5) Ur Specific Treichlers (1.000-1.030) Urine Protein (Negative) Urine Glucose (UA) (Negative) Urine Ketones (Negative) Urine Blood (Negative) Urine Nitrite (Negative) Urine Bilirubin (Negative) Urine Urobilinogen (Negative) Ur Leukocyte Esterase (Negative) Urine WBC (Auto) (0-5) /hpf Urine RBC (Auto) (0-2) /hpf U Hyaline Cast (Auto) (0-2) /lpf U Epithel Cells (Auto) (0-2) /hpf Urine Bacteria (Auto) (None Seen) Amorphous Sediment (None Prsent) Tacrolimus SARS-CoV-2, RNA, NAAT (NEGATIVE) 02/12/24 02/12/24 02/12/24 Range/Units 11:21 07:46 05:39 WBC 8.19 (4.8-10.8) K/ul RBC 4.80 (4.70-6.10) M/uL Hgb 14.3 (14.0-18.0) g/dl POC Hgb (14.0-18.0) g/dl Hct 44.5 (42.0-52.0) % POC Hct (42-52) % MCV 92.7 (80.0-100.0) fL MCH 29.8 (25.0-34.0) pg MCHC 32.1 (32.0-36.0) g/dL RDW Std Deviation 43.5 (36.4-46.3) fL RDW Coeff of Reema 12.7 (11.5-14.5) % Plt Count 116 L (130-400) K/uL MPV 9.2 L (9.4-12.4) fL Immature Gran % (Auto) % Neut % (Auto) % Lymph % (Auto) % [place] % (Auto) % Eos % (Auto) % Baso % (Auto) % Neut # (Auto) (1.40-6.50) K/uL Lymph # (Auto) (1.20-3.40) K/uL [place] # (Auto) (0.11-0.59) K/uL Eos # (Auto) (0.00-0.50) K/uL Baso # (Auto) (0.00-0.20) K/uL Immature Gran # (Auto) (0.01-0.20) K/uL VBG pH VBG pCO2 VBG pO2 VBG HCO3 VBG O2 Saturation VBG Base Excess Barometric Pressure POC Sodium (135-144) mmol/L Sodium 149 H (136-145) mmol/L POC Potassium (3.3-5.0) mmol/L Potassium 3.4 L (3.5-5.1) mmol/L POC Chloride (101-112) mmol/L Chloride 117 H (98-107) mmol/L Carbon Dioxide 24 (21-32) mmol/L POC Total CO2 (24-31) mmol/L Anion Gap 8 (3-11) POC Anion Gap (16-25) mmol/L POC BUN (7-18) mg/dl BUN 53 H (6-23) mg/dl Creatinine 1.52 H (0.6-1.4) mg/dl POC Creatinine (0.6-1.3) mg/dl Est Cr Clr Drug Dosing 33.4 ml/min eGFR 45.75 BUN/Creatinine Ratio 34.9 H (10-20) Glucose 205 H (70-99(Fasting)) mg/dl POC Glucose 142 H 146 H (70-99) mg/dl POC Glucose (other) (70-99) mg/dl Lactate (0.4-2.0) mmol/L Calcium 8.9 (8.6-10.3) mg/dl POC Ioniz Calcium Pia (1.12-1.32) mmol/l Magnesium 2.0 (1.7-2.4) mg/dl Total Bilirubin (0.2-1.0) mg/dl AST (13-39) U/L ALT (7-52) U/L Alkaline Phosphatase (34-104) U/L Ammonia (18-72) umol/L Troponin I High Sens (0-20) pg/ml Total Protein (6.0-8.3) gm/dl Albumin (3.4-5.0) gm/dl Globulin (2.5-4.0) gm/dl Albumin/Globulin Ratio (0.9-2) TSH (0.300-4.500) uIu/ml Urine Color Urine Appearance (Clear) Urine pH (4.5-7.5) Ur Specific Treichlers (1.000-1.030) Urine Protein (Negative) Urine Glucose (UA) (Negative) Urine Ketones (Negative) Urine Blood (Negative) Urine Nitrite (Negative) Urine Bilirubin (Negative) Urine Urobilinogen (Negative) Ur Leukocyte Esterase (Negative) Urine WBC (Auto) (0-5) /hpf Urine RBC (Auto) (0-2) /hpf U Hyaline Cast (Auto) (0-2) /lpf U Epithel Cells (Auto) (0-2) /hpf Urine Bacteria (Auto) (None Seen) Amorphous Sediment (None Prsent) Tacrolimus SARS-CoV-2, RNA, NAAT (NEGATIVE) 02/12/24 02/12/24 02/11/24 Range/Units 00:31 00:01 20:38 WBC (4.8-10.8) K/ul RBC (4.70-6.10) M/uL Hgb (14.0-18.0) g/dl POC Hgb (14.0-18.0) g/dl Hct (42.0-52.0) % POC Hct (42-52) % MCV (80.0-100.0) fL MCH (25.0-34.0) pg MCHC (32.0-36.0) g/dL RDW Std Deviation (36.4-46.3) fL RDW Coeff of Reema (11.5-14.5) % Plt Count (130-400) K/uL MPV (9.4-12.4) fL Immature Gran % (Auto) % Neut % (Auto) % Lymph % (Auto) % [place] % (Auto) % Eos % (Auto) % Baso % (Auto) % Neut # (Auto) (1.40-6.50) K/uL Lymph # (Auto) (1.20-3.40) K/uL [place] # (Auto) (0.11-0.59) K/uL Eos # (Auto) (0.00-0.50) K/uL Baso # (Auto) (0.00-0.20) K/uL Immature Gran # (Auto) (0.01-0.20) K/uL VBG pH VBG pCO2 VBG pO2 VBG HCO3 VBG O2 Saturation VBG Base Excess Barometric Pressure POC Sodium (135-144) mmol/L Sodium 151 H (136-145) mmol/L POC Potassium (3.3-5.0) mmol/L Potassium (3.5-5.1) mmol/L POC Chloride (101-112) mmol/L Chloride (98-107) mmol/L Carbon Dioxide (21-32) mmol/L POC Total CO2 (24-31) mmol/L Anion Gap (3-11) POC Anion Gap (16-25) mmol/L POC BUN (7-18) mg/dl BUN (6-23) mg/dl Creatinine (0.6-1.4) mg/dl POC Creatinine (0.6-1.3) mg/dl Est Cr Clr Drug Dosing ml/min eGFR BUN/Creatinine Ratio (10-20) Glucose (70-99(Fasting)) mg/dl POC Glucose 140 H 148 H (70-99) mg/dl POC Glucose (other) (70-99) mg/dl Lactate (0.4-2.0) mmol/L Calcium (8.6-10.3) mg/dl POC Ioniz Calcium Pia (1.12-1.32) mmol/l Magnesium (1.7-2.4) mg/dl Total Bilirubin (0.2-1.0) mg/dl AST (13-39) U/L ALT (7-52) U/L Alkaline Phosphatase (34-104) U/L Ammonia (18-72) umol/L Troponin I High Sens (0-20) pg/ml Total Protein (6.0-8.3) gm/dl Albumin (3.4-5.0) gm/dl Globulin (2.5-4.0) gm/dl Albumin/Globulin Ratio (0.9-2) TSH (0.300-4.500) uIu/ml Urine Color Urine Appearance (Clear) Urine pH (4.5-7.5) Ur Specific [place] (1.000-1.030) Urine Protein (Negative) Urine Glucose (UA) (Negative) Urine Ketones (Negative) Urine Blood (Negative) Urine Nitrite (Negative) Urine Bilirubin (Negative) Urine Urobilinogen (Negative) Ur Leukocyte Esterase (Negative) Urine WBC (Auto) (0-5) /hpf Urine RBC (Auto) (0-2) /hpf U Hyaline Cast (Auto) (0-2) /lpf U Epithel Cells (Auto) (0-2) /hpf Urine Bacteria (Auto) (None Seen) Amorphous Sediment (None Prsent) Tacrolimus SARS-CoV-2, RNA, NAAT (NEGATIVE) 02/11/24 02/11/24 02/11/24 Range/Units 17:12 17:07 16:45 WBC (4.8-10.8) K/ul RBC (4.70-6.10) M/uL Hgb (14.0-18.0) g/dl POC Hgb (14.0-18.0) g/dl Hct (42.0-52.0) % POC Hct (42-52) % MCV (80.0-100.0) fL MCH (25.0-34.0) pg MCHC (32.0-36.0) g/dL RDW Std Deviation (36.4-46.3) fL RDW Coeff of Reema (11.5-14.5) % Plt Count (130-400) K/uL MPV (9.4-12.4) fL Immature Gran % (Auto) % Neut % (Auto) % Lymph % (Auto) % [place] % (Auto) % Eos % (Auto) % Baso % (Auto) % Neut # (Auto) (1.40-6.50) K/uL Lymph # (Auto) (1.20-3.40) K/uL [place] # (Auto) (0.11-0.59) K/uL Eos # (Auto) (0.00-0.50) K/uL Baso # (Auto) (0.00-0.20) K/uL Immature Gran # (Auto) (0.01-0.20) K/uL VBG pH VBG pCO2 VBG pO2 VBG HCO3 VBG O2 Saturation VBG Base Excess Barometric Pressure POC Sodium (135-144) mmol/L Sodium 154 H (136-145) mmol/L POC Potassium (3.3-5.0) mmol/L Potassium 3.9 (3.5-5.1) mmol/L POC Chloride (101-112) mmol/L Chloride 121 H (98-107) mmol/L Carbon Dioxide 27 (21-32) mmol/L POC Total CO2 (24-31) mmol/L Anion Gap 6 (3-11) POC Anion Gap (16-25) mmol/L POC BUN (7-18) mg/dl BUN 62 H (6-23) mg/dl Creatinine 1.73 H (0.6-1.4) mg/dl POC Creatinine (0.6-1.3) mg/dl Est Cr Clr Drug Dosing 29.1 ml/min eGFR 39.17 BUN/Creatinine Ratio 35.8 H (10-20) Glucose 181 H (70-99(Fasting)) mg/dl POC Glucose 133 H 142 H (70-99) mg/dl POC Glucose (other) (70-99) mg/dl Lactate (0.4-2.0) mmol/L Calcium 9.2 (8.6-10.3) mg/dl POC Ioniz Calcium Pia (1.12-1.32) mmol/l Magnesium (1.7-2.4) mg/dl Total Bilirubin (0.2-1.0) mg/dl AST (13-39) U/L ALT (7-52) U/L Alkaline Phosphatase (34-104) U/L Ammonia (18-72) umol/L Troponin I High Sens (0-20) pg/ml Total Protein (6.0-8.3) gm/dl Albumin (3.4-5.0) gm/dl Globulin (2.5-4.0) gm/dl Albumin/Globulin Ratio (0.9-2) TSH (0.300-4.500) uIu/ml Urine Color Urine Appearance (Clear) Urine pH (4.5-7.5) Ur Specific Tre[place]lers (1.000-1.030) Urine Protein (Negative) Urine Glucose (UA) (Negative) Urine Ketones (Negative) Urine Blood (Negative) Urine Nitrite (Negative) Urine Bilirubin (Negative) Urine Urobilinogen (Negative) Ur Leukocyte Esterase (Negative) Urine WBC (Auto) (0-5) /hpf Urine RBC (Auto) (0-2) /hpf U Hyaline Cast (Auto) (0-2) /lpf U Epithel Cells (Auto) (0-2) /hpf Urine Bacteria (Auto) (None Seen) Amorphous Sediment (None Prsent) Tacrolimus SARS-CoV-2, RNA, NAAT (NEGATIVE) 02/11/24 02/11/24 02/11/24 Range/Units 15:48 12:22 09:00 WBC 12.50 H (4.8-10.8) K/ul RBC 5.19 (4.70-6.10) M/uL Hgb 15.5 (14.0-18.0) g/dl POC Hgb (14.0-18.0) g/dl Hct 48.1 (42.0-52.0) % POC Hct (42-52) % MCV 92.7 (80.0-100.0) fL MCH 29.9 (25.0-34.0) pg MCHC 32.2 (32.0-36.0) g/dL RDW Std Deviation 43.3 (36.4-46.3) fL RDW Coeff of Reema 12.8 (11.5-14.5) % Plt Count 131 (130-400) K/uL MPV 9.3 L (9.4-12.4) fL Immature Gran % (Auto) % Neut % (Auto) % Lymph % (Auto) % [place] % (Auto) % Eos % (Auto) % Baso % (Auto) % Neut # (Auto) (1.40-6.50) K/uL Lymph # (Auto) (1.20-3.40) K/uL [place] # (Auto) (0.11-0.59) K/uL Eos # (Auto) (0.00-0.50) K/uL Baso # (Auto) (0.00-0.20) K/uL Immature Gran # (Auto) (0.01-0.20) K/uL VBG pH VBG pCO2 VBG pO2 VBG HCO3 VBG O2 Saturation VBG Base Excess Barometric Pressure POC Sodium (135-144) mmol/L Sodium Cancelled 155 H (136-145) mmol/L POC Potassium (3.3-5.0) mmol/L Potassium Cancelled 3.9 (3.5-5.1) mmol/L POC Chloride (101-112) mmol/L Chloride Cancelled 122 H (98-107) mmol/L Carbon Dioxide Cancelled 27 (21-32) mmol/L POC Total CO2 (24-31) mmol/L Anion Gap Cancelled 6 (3-11) POC Anion Gap (16-25) mmol/L POC BUN (7-18) mg/dl BUN Cancelled 64 H (6-23) mg/dl Creatinine Cancelled 1.81 H (0.6-1.4) mg/dl POC Creatinine (0.6-1.3) mg/dl Est Cr Clr Drug Dosing Cancelled 27.8 ml/min eGFR Cancelled 37.10 BUN/Creatinine Ratio Cancelled 35.4 H (10-20) Glucose Cancelled 130 H (70-99(Fasting)) mg/dl POC Glucose 112 H (70-99) mg/dl POC Glucose (other) (70-99) mg/dl Lactate (0.4-2.0) mmol/L Calcium Cancelled 9.5 (8.6-10.3) mg/dl POC Ioniz Calcium Pia (1.12-1.32) mmol/l Magnesium 2.3 (1.7-2.4) mg/dl Total Bilirubin (0.2-1.0) mg/dl AST (13-39) U/L ALT (7-52) U/L Alkaline Phosphatase (34-104) U/L Ammonia (18-72) umol/L Troponin I High Sens (0-20) pg/ml Total Protein (6.0-8.3) gm/dl Albumin (3.4-5.0) gm/dl Globulin (2.5-4.0) gm/dl Albumin/Globulin Ratio (0.9-2) TSH (0.300-4.500) uIu/ml Urine Color Urine Appearance (Clear) Urine pH (4.5-7.5) Ur Specific Treichlers (1.000-1.030) Urine Protein (Negative) Urine Glucose (UA) (Negative) Urine Ketones (Negative) Urine Blood (Negative) Urine Nitrite (Negative) Urine Bilirubin (Negative) Urine Urobilinogen (Negative) Ur Leukocyte Esterase (Negative) Urine WBC (Auto) (0-5) /hpf Urine RBC (Auto) (0-2) /hpf U Hyaline Cast (Auto) (0-2) /lpf U Epithel Cells (Auto) (0-2) /hpf Urine Bacteria (Auto) (None Seen) Amorphous Sediment (None Prsent) Tacrolimus SARS-CoV-2, RNA, NAAT (NEGATIVE) 02/11/24 02/11/24 02/10/24 Range/Units 02:58 02:58 22:49 WBC 12.40 H (4.8-10.8) K/ul RBC 5.01 (4.70-6.10) M/uL Hgb 14.9 (14.0-18.0) g/dl POC Hgb (14.0-18.0) g/dl Hct 46.7 (42.0-52.0) % POC Hct (42-52) % MCV 93.2 (80.0-100.0) fL MCH 29.7 (25.0-34.0) pg MCHC 31.9 L (32.0-36.0) g/dL RDW Std Deviation 43.8 (36.4-46.3) fL RDW Coeff of Reema 12.8 (11.5-14.5) % Plt Count 132 (130-400) K/uL MPV 9.4 (9.4-12.4) fL Immature Gran % (Auto) % Neut % (Auto) % Lymph % (Auto) % [place] % (Auto) % Eos % (Auto) % Baso % (Auto) % Neut # (Auto) (1.40-6.50) K/uL Lymph # (Auto) (1.20-3.40) K/uL [place] # (Auto) (0.11-0.59) K/uL Eos # (Auto) (0.00-0.50) K/uL Baso # (Auto) (0.00-0.20) K/uL Immature Gran # (Auto) (0.01-0.20) K/uL VBG pH VBG pCO2 VBG pO2 VBG HCO3 VBG O2 Saturation VBG Base Excess Barometric Pressure POC Sodium (135-144) mmol/L Sodium 150 H Cancelled 155 H (136-145) mmol/L POC Potassium (3.3-5.0) mmol/L Potassium 3.6 (3.5-5.1) mmol/L POC Chloride (101-112) mmol/L Chloride 117 H (98-107) mmol/L Carbon Dioxide 25 (21-32) mmol/L POC Total CO2 (24-31) mmol/L Anion Gap 8 (3-11) POC Anion Gap (16-25) mmol/L POC BUN (7-18) mg/dl BUN 68 H (6-23) mg/dl Creatinine 1.70 H (0.6-1.4) mg/dl POC Creatinine (0.6-1.3) mg/dl Est Cr Clr Drug Dosing 29.6 ml/min eGFR 40.00 BUN/Creatinine Ratio 40.0 H (10-20) Glucose 295 H (70-99(Fasting)) mg/dl POC Glucose (70-99) mg/dl POC Glucose (other) (70-99) mg/dl Lactate (0.4-2.0) mmol/L Calcium 9.3 (8.6-10.3) mg/dl POC Ioniz Calcium Pia (1.12-1.32) mmol/l Magnesium 2.3 (1.7-2.4) mg/dl Total Bilirubin (0.2-1.0) mg/dl AST (13-39) U/L ALT (7-52) U/L Alkaline Phosphatase (34-104) U/L Ammonia (18-72) umol/L Troponin I High Sens 24.3 H (0-20) pg/ml Total Protein (6.0-8.3) gm/dl Albumin (3.4-5.0) gm/dl Globulin (2.5-4.0) gm/dl Albumin/Globulin Ratio (0.9-2) TSH (0.300-4.500) uIu/ml Urine Color Urine Appearance (Clear) Urine pH (4.5-7.5) Ur Specific [place] (1.000-1.030) Urine Protein (Negative) Urine Glucose (UA) (Negative) Urine Ketones (Negative) Urine Blood (Negative) Urine Nitrite (Negative) Urine Bilirubin (Negative) Urine Urobilinogen (Negative) Ur Leukocyte Esterase (Negative) Urine WBC (Auto) (0-5) /hpf Urine RBC (Auto) (0-2) /hpf U Hyaline Cast (Auto) (0-2) /lpf U Epithel Cells (Auto) (0-2) /hpf Urine Bacteria (Auto) (None Seen) Amorphous Sediment (None Prsent) Tacrolimus Pending SARS-CoV-2, RNA, NAAT (NEGATIVE) 02/10/24 02/10/24 02/10/24 Range/Units 20:51 20:44 20:01 WBC (4.8-10.8) K/ul RBC (4.70-6.10) M/uL Hgb (14.0-18.0) g/dl POC Hgb (14.0-18.0) g/dl Hct (42.0-52.0) % POC Hct (42-52) % MCV (80.0-100.0) fL MCH (25.0-34.0) pg MCHC (32.0-36.0) g/dL RDW Std Deviation (36.4-46.3) fL RDW Coeff of Reema (11.5-14.5) % Plt Count (130-400) K/uL MPV (9.4-12.4) fL Immature Gran % (Auto) % Neut % (Auto) % Lymph % (Auto) % [place] % (Auto) % Eos % (Auto) % Baso % (Auto) % Neut # (Auto) (1.40-6.50) K/uL Lymph # (Auto) (1.20-3.40) K/uL [place] # (Auto) (0.11-0.59) K/uL Eos # (Auto) (0.00-0.50) K/uL Baso # (Auto) (0.00-0.20) K/uL Immature Gran # (Auto) (0.01-0.20) K/uL VBG pH 7.34 L VBG pCO2 49 VBG pO2 < 20 VBG HCO3 26 VBG O2 Saturation < 60.0 VBG Base Excess 0 Barometric Pressure POC Sodium (135-144) mmol/L Sodium Cancelled (136-145) mmol/L POC Potassium (3.3-5.0) mmol/L Potassium 3.8 (3.5-5.1) mmol/L POC Chloride (101-112) mmol/L Chloride 123 H (98-107) mmol/L Carbon Dioxide 24 (21-32) mmol/L POC Total CO2 (24-31) mmol/L Anion Gap 9 (3-11) POC Anion Gap (16-25) mmol/L POC BUN (7-18) mg/dl BUN 68 H (6-23) mg/dl Creatinine 1.76 H (0.6-1.4) mg/dl POC Creatinine (0.6-1.3) mg/dl Est Cr Clr Drug Dosing 28.6 ml/min eGFR 38.37 BUN/Creatinine Ratio 38.6 H (10-20) Glucose 147 H (70-99(Fasting)) mg/dl POC Glucose 117 H (70-99) mg/dl POC Glucose (other) (70-99) mg/dl Lactate (0.4-2.0) mmol/L Calcium 9.5 (8.6-10.3) mg/dl POC Ioniz Calcium Pia (1.12-1.32) mmol/l Magnesium (1.7-2.4) mg/dl Total Bilirubin (0.2-1.0) mg/dl AST (13-39) U/L ALT (7-52) U/L Alkaline Phosphatase (34-104) U/L Ammonia (18-72) umol/L Troponin I High Sens 30.1 H D (0-20) pg/ml Total Protein (6.0-8.3) gm/dl Albumin (3.4-5.0) gm/dl Globulin (2.5-4.0) gm/dl Albumin/Globulin Ratio (0.9-2) TSH (0.300-4.500) uIu/ml Urine Color Urine Appearance (Clear) Urine pH (4.5-7.5) Ur Specific [place] (1.000-1.030) Urine Protein (Negative) Urine Glucose (UA) (Negative) Urine Ketones (Negative) Urine Blood (Negative) Urine Nitrite (Negative) Urine Bilirubin (Negative) Urine Urobilinogen (Negative) Ur Leukocyte Esterase (Negative) Urine WBC (Auto) (0-5) /hpf Urine RBC (Auto) (0-2) /hpf U Hyaline Cast (Auto) (0-2) /lpf U Epithel Cells (Auto) (0-2) /hpf Urine Bacteria (Auto) (None Seen) Amorphous Sediment (None Prsent) Tacrolimus SARS-CoV-2, RNA, NAAT (NEGATIVE) 02/10/24 02/10/24 02/10/24 Range/Units 20:01 16:22 14:50 WBC (4.8-10.8) K/ul RBC (4.70-6.10) M/uL Hgb (14.0-18.0) g/dl POC Hgb (14.0-18.0) g/dl Hct (42.0-52.0) % POC Hct (42-52) % MCV (80.0-100.0) fL MCH (25.0-34.0) pg MCHC (32.0-36.0) g/dL RDW Std Deviation (36.4-46.3) fL RDW Coeff of Reema (11.5-14.5) % Plt Count (130-400) K/uL MPV (9.4-12.4) fL Immature Gran % (Auto) % Neut % (Auto) % Lymph % (Auto) % [place] % (Auto) % Eos % (Auto) % Baso % (Auto) % Neut # (Auto) (1.40-6.50) K/uL Lymph # (Auto) (1.20-3.40) K/uL [place] # (Auto) (0.11-0.59) K/uL Eos # (Auto) (0.00-0.50) K/uL Baso # (Auto) (0.00-0.20) K/uL Immature Gran # (Auto) (0.01-0.20) K/uL VBG pH Cancelled VBG pCO2 Cancelled VBG pO2 Cancelled VBG HCO3 Cancelled VBG O2 Saturation Cancelled VBG Base Excess Cancelled Barometric Pressure Cancelled POC Sodium (135-144) mmol/L Sodium 156 H* (136-145) mmol/L POC Potassium (3.3-5.0) mmol/L Potassium (3.5-5.1) mmol/L POC Chloride (101-112) mmol/L Chloride (98-107) mmol/L Carbon Dioxide (21-32) mmol/L POC Total CO2 (24-31) mmol/L Anion Gap (3-11) POC Anion Gap (16-25) mmol/L POC BUN (7-18) mg/dl BUN (6-23) mg/dl Creatinine (0.6-1.4) mg/dl POC Creatinine (0.6-1.3) mg/dl Est Cr Clr Drug Dosing ml/min eGFR BUN/Creatinine Ratio (10-20) Glucose (70-99(Fasting)) mg/dl POC Glucose (70-99) mg/dl POC Glucose (other) (70-99) mg/dl Lactate (0.4-2.0) mmol/L Calcium (8.6-10.3) mg/dl POC Ioniz Calcium Pia (1.12-1.32) mmol/l Magnesium (1.7-2.4) mg/dl Total Bilirubin (0.2-1.0) mg/dl AST (13-39) U/L ALT (7-52) U/L Alkaline Phosphatase (34-104) U/L Ammonia (18-72) umol/L Troponin I High Sens 19.2 D (0-20) pg/ml Total Protein (6.0-8.3) gm/dl Albumin (3.4-5.0) gm/dl Globulin (2.5-4.0) gm/dl Albumin/Globulin Ratio (0.9-2) TSH (0.300-4.500) uIu/ml Urine Color Dark Yellow Urine Appearance Turbid A (Clear) Urine pH 6.0 (4.5-7.5) Ur Specific [place] 1.026 (1.000-1.030) Urine Protein 3+ H (Negative) Urine Glucose (UA) Negative (Negative) Urine Ketones Negative (Negative) Urine Blood 3+ H (Negative) Urine Nitrite Negative (Negative) Urine Bilirubin 1+ H (Negative) Urine Urobilinogen Negative (Negative) Ur Leukocyte Esterase 3+ H (Negative) Urine WBC (Auto) >50 H (0-5) /hpf Urine RBC (Auto) >20 H (0-2) /hpf U Hyaline Cast (Auto) >20 H (0-2) /lpf U Epithel Cells (Auto) >20 H (0-2) /hpf Urine Bacteria (Auto) 4+ H (None Seen) Amorphous Sediment Present A (None Prsent) Tacrolimus SARS-CoV-2, RNA, NAAT NEGATIVE (NEGATIVE) 02/10/24 02/10/24 02/10/24 Range/Units 14:40 14:00 13:40 WBC 9.82 (4.8-10.8) K/ul RBC 5.71 (4.70-6.10) M/uL Hgb 16.8 (14.0-18.0) g/dl POC Hgb 17.0 (14.0-18.0) g/dl Hct 52.1 H (42.0-52.0) % POC Hct 50 (42-52) % MCV 91.2 (80.0-100.0) fL MCH 29.4 (25.0-34.0) pg MCHC 32.2 (32.0-36.0) g/dL RDW Std Deviation 42.5 (36.4-46.3) fL RDW Coeff of Reema 12.8 (11.5-14.5) % Plt Count 164 (130-400) K/uL MPV 9.3 L (9.4-12.4) fL Immature Gran % (Auto) 0.4 % Neut % (Auto) 76.4 % Lymph % (Auto) 16.5 % [place] % (Auto) 5.2 % Eos % (Auto) 1.2 % Baso % (Auto) 0.3 % Neut # (Auto) 7.50 H (1.40-6.50) K/uL Lymph # (Auto) 1.62 (1.20-3.40) K/uL [place] # (Auto) 0.51 (0.11-0.59) K/uL Eos # (Auto) 0.12 (0.00-0.50) K/uL Baso # (Auto) 0.03 (0.00-0.20) K/uL Immature Gran # (Auto) 0.04 (0.01-0.20) K/uL VBG pH VBG pCO2 VBG pO2 VBG HCO3 VBG O2 Saturation VBG Base Excess Barometric Pressure POC Sodium 158 H* (135-144) mmol/L Sodium 157 H* (136-145) mmol/L POC Potassium 4.0 (3.3-5.0) mmol/L Potassium 4.1 (3.5-5.1) mmol/L POC Chloride 122 H (101-112) mmol/L Chloride 122 H (98-107) mmol/L Carbon Dioxide 26 (21-32) mmol/L POC Total CO2 23 L (24-31) mmol/L Anion Gap 9 (3-11) POC Anion Gap 18.0 (16-25) mmol/L POC BUN 63 H (7-18) mg/dl BUN 73 H (6-23) mg/dl Creatinine 1.94 H (0.6-1.4) mg/dl POC Creatinine 2.0 H (0.6-1.3) mg/dl Est Cr Clr Drug Dosing 27.9 ml/min eGFR 34.14 BUN/Creatinine Ratio 37.6 H (10-20) Glucose 173 H (70-99(Fasting)) mg/dl POC Glucose (70-99) mg/dl POC Glucose (other) 175 H (70-99) mg/dl Lactate 1.6 (0.4-2.0) mmol/L Calcium 10.4 H (8.6-10.3) mg/dl POC Ioniz Calcium Pia 1.30 (1.12-1.32) mmol/l Magnesium 2.5 H (1.7-2.4) mg/dl Total Bilirubin 1.0 (0.2-1.0) mg/dl AST 16 (13-39) U/L ALT 14 (7-52) U/L Alkaline Phosphatase 59 (34-104) U/L Ammonia 21.0 (18-72) umol/L Troponin I High Sens 29.0 H (0-20) pg/ml Total Protein 7.3 (6.0-8.3) gm/dl Albumin 4.0 (3.4-5.0) gm/dl Globulin 3.3 (2.5-4.0) gm/dl Albumin/Globulin Ratio 1.2 (0.9-2) TSH 0.413 (0.300-4.500) uIu/ml Urine Color Urine Appearance (Clear) Urine pH (4.5-7.5) Ur Specific [place] (1.000-1.030) Urine Protein (Negative) Urine Glucose (UA) (Negative) Urine Ketones (Negative) Urine Blood (Negative) Urine Nitrite (Negative) Urine Bilirubin (Negative) Urine Urobilinogen (Negative) Ur Leukocyte Esterase (Negative) Urine WBC (Auto) (0-5) /hpf Urine RBC (Auto) (0-2) /hpf U Hyaline Cast (Auto) (0-2) /lpf U Epithel Cells (Auto) (0-2) /hpf Urine Bacteria (Auto) (None Seen) Amorphous Sediment (None Prsent) Tacrolimus SARS-CoV-2, RNA, NAAT (NEGATIVE) Diagnostic Findings Chest X-Ray 02/10/24 14:06 EXAM: Radiograph of the Chest 1 View INDICATION: Weakness. TECHNIQUE: Frontal view of the chest. COMPARISON: 06/20/2023 FINDINGS: Lungs and pleural spaces: Stable chronic interstitial scarring. No consolidation or pulmonary edema. No pleural effusion or pneumothorax. Heart: Stable mild cardiomegaly. Mediastinum: Normal contour. Bones/joints: There is a lucency projecting over the posterior left seventh rib which I suspect is artifact from the scapula. Soft tissues: No abnormality noted. No radiopaque foreign body noted. Vasculature: Stable ectatic aorta. Upper abdomen: No abnormality noted. IMPRESSION: 1. No acute cardiopulmonary disease. 2. There is a lucency projecting over the posterior left seventh rib which I suspect is artifact from the scapula. If there is pain referable to this area, dedicated rib series may be of benefit. ACT 112: Negative or not required by law. Electronically signed by Evelyn Vinson 02-10-2024 3:[address] 02/10/24 14:07 EXAM: CT Head Without Intravenous Contrast INDICATION: Altered mental status. Weakness. TECHNIQUE: Axial computed tomography images of the head/brain without intravenous contrast. Sagittal and/or coronal reformats are provided. Sagittal and coronal reformatted images were created and reviewed. This CT exam was performed using one or more of the following dose reduction techniques: automated exposure control, adjustment of the mA and/or kV according to patient size, and/or use of iterative reconstruction technique. COMPARISON: 11/21/2023 and 06/20/2023. FINDINGS: Limitations: None. Brain and extra-axial spaces: There is age appropriate cortical atrophy and chronic ischemic periventricular white matter hypodensity. No acute infarct, hemorrhage or mass noted. Stable approximate 5 mm thickness right hemispheric chronic hygroma (decreased from 8 mm 06/20/2023). An approximate 2-3 mm subacute subdural collection noted at the convexity is stable. No acute hemorrhage. Chronic small vessel ischemic changes and cortical atrophy stable. Bones/joints: No acute changes. Soft tissues: No significant abnormality noted. Vasculature: Dense atherosclerotic calcifications noted. Sinuses: No layering fluid in the visualized portions of the paranasal sinuses. Mastoid air cells: No mastoid effusion. Orbits: No significant abnormality noted. IMPRESSION: 1. Cerebral atrophy. No acute changes. 2. 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 No acute abnormality noted. ACT 112: Negative or not required by law. Electronically signed by Evelyn Vinson 02-10-2024 3:21 PM PG Care Time/CCT Total # of Minutes Spent Total Time Spent with Patient: Total time spent is greater than 50% in coordination of care (as documented) at patient's floor/unit and/or counseling patient: I spent 95 minutes overall addressing this case: 15 min in medical data review/discussion with referring provider(s) and/or preparation for the visit 20 min in direct interaction with the patient/exam 30 min in Advance Care Planning/Goals of Care discussions as detailed above in note (must be >16min) 15 min in subsequent review and synthesis of assessment and plan 15 min communicating with other providers regarding the patient's case: Advanced Care Planning 62841 Advanced Care Planning 30 Min [id number] Advanced Care Planning Additional 30 [place] [address] IN/OBS CONSULT LVL 4,60M (25 - SIGNIFICANT, SEPARATELY IDENTIFIABLE ) Patient Type New Diagnoses Generalized muscle weakness M62.81 Dementia F03.B0 Dementia behavioral or psychological symptom: without behavioral, psychotic, or mood disturbance or anxiety Dementia severity: moderate Dementia type: unspecified type Discussion about advance care planning held with family member Z71.0 Palliative care by specialist Z51.5 Physical deconditioning R53.81 Additional Codes Advanced Care Planning - 83316 Advanced Care Planning 30 Min: 93662 Advanced Care Planning 30 Min ([id number]) Advanced Care Planning - 97628 Advanced Care Planning Additional 30 Min: 71725 Advanced Care Planning Additional 30 Min ([id number])
[2024-02-14 07:12] LABS: Hematocrit (blood only) 41.9 % (42.0-52.0); Mean Corpuscular Hemoglobin 29.9 pg (25.0-34.0); Mean Corpuscular Hgb Conc 33.4 g/dL (32.0-36.0); Mean Corpuscular Volume 89.5 fL (80.0-100.0); Mean Platelet Volume 9.4 fL (9.4-12.4); Platelet Count 100 K/uL (130-400); RDW Coefficient of Variation 12.7 % (11.5-14.5); RDW Standard Deviation 40.8 fL (36.4-46.3); Red Blood Count 4.68 M/uL (4.70-6.10); White Blood Count 12.73 K/ul (4.8-10.8)
[2024-02-14 07:24] LABS: BUN Creatinine Ratio 31.7 (10-20); Calcium 8.3 mg/dl (8.6-10.3); Creatinine Clr Calc Pharmacy 42.3 ml/min; Potassium 3.9 mmol/L (3.5-5.1)
[2024-02-14] MEDS: INFLUENZA VACC TS2024-25(65y+)/PF (IIV3) 0.5mL Syr IM ONE (09:22)
[2024-02-14] MEDS: DEXTROSE 5% 1,000 ML IV SCH (10:14)
--- NOTE | 2024-02-14 14:15 | Hospitalist Progress Note ---
Date of Service February 14, 2024 Assessment & Plan (1) Acute hypernatremia: Plan: Presented with acute change in mental status/acute metabolic encephalopathy secondary to UTI and also acute hypernatremia Presented with sodium of 157 and has been receiving intravenous fluid including dextrose 5% since admission Appreciate nephrology input and recommendation Sodium level has been normalized as of 02/14/2024 and the patient seems to be at his baseline Advised to drink more fluid to maintain current sodium level and improve dehydration Palliative care encounter Advanced dementia, generalized muscle weakness, recurrent UTI and poor nutritional status due to inability to eat or drink Appreciate palliative care input and recommendations so far I had a discussion with both her sons including one is traveling from [place] today Answered all of their questions and also mentioned that the patient seems to be at his baseline as of today after my evaluation Further discussion with the palliative care is likely to be held tomorrow (2) Acute dehydration: Plan: Presented with acute renal failure likely secondary to dehydration due to poor intake Presenting creatinine was 1.94 and received appropriate treatment since admission Creatinine has been normalized as of today 02/14/24 at 1.23 Advised to drink more fluid otherwise will need to continue free water through mouth and/or some other means (3) Acute renal failure superimposed on stage 3 chronic kidney disease: Plan: History of end-stage renal disease secondary to polycystic kidney disease status post renal transplant on immunosuppressant with tacrolimus and CellCept Acute kidney failure secondary to dehydration Appreciate nephrology input and recommendation Received intravenous fluid and also has been receiving as of today including dextrose 5% Kidney function has been normalized (4) Acute metabolic encephalopathy: Plan: Seems to be at his baseline (5) Catheter-associated urinary tract infection: Plan: Has been getting recurrent UTIs Complicated by immunosuppressed condition Extensive discussion with the son and the current infection seems to be under control (6) Mixed Alzheimer and vascular dementia: Plan: Has advanced dementia (7) Parkinsonism: (8) History of renal transplant: Plan Notes from prior Hospitalist: Patient remains significantly encephalopathic. Not awake and alert enough to maintain adequate hydration on his own. Extensive review of EMR, patient has known mixed dementia which appears to have progressed over the last few weeks. Hypernatremia dehydration in the setting of dementia is uremic concerning. Suspect patient will not be able to maintain adequate oral intake to prevent the recurrence of his renal failure, dehydration, hypernatremia. Communication with nephrology, confirms poor prognosis of the hypernatremia acute kidney injury in the setting of dementia Phone conversation with the patient's son reviewed my concerns of the patient's progressive dementia and recurrence for this cycle of dehydration and hypernatremia. Son states that the last time he discussed advanced directives with his dad he still wanted full interventions with the exception of hemodialysis. He understands that to maintain adequate nutrition and hydration a feeding tube could be considered. However, son was open to discussing more of a palliative approach and is interested in palliative care perspective. Consult palliative care, Dr. Whitney notified Continue IV hydration while family going through decision making process of goals of care Monitor electrolytes and renal function Oral intake as tolerated pending patient's mental status. 54 minutes spent in evaluation the bedside, reviewing the records, coordinating care, communication with family, communication with medical team and specialists Admission and Anticipated Discharge Date Admission Date: February 10, 2024 Subjective 02/14/2024 The patient was seen and examined in medical floor He has been stable and has been communicating with me today Moving all of his extremities but has generalized weakness Remains pleasantly confused and does not have any acute distress Has been tolerating pured and slippery diet Review of Systems Review of Systems: Unobtainable due to cognitive status Physical Exam Physical Exam: Lying in bed without any acute distress Constitutional: + ill appearing and average body habitus Eyes: PERRL, conjunctivae normal, anicteric sclerae ENMT: external ear and nose normal, oropharynx normal Neck: trachea midline, no thyromegaly Respiratory: no respiratory distress Auscultation: + diminished lung sounds; no crackles Cardiovascular: Rate/Rhythm: regular rate and regular rhythm; not tachycardic Heart Sounds: normal S1 and normal S2; no murmur Extremities: no edema Gastrointestinal (Abdomen): Inspection/Auscultation: normal bowel sounds; abdomen not distended Percussion/Palpation: abdomen soft; abdomen nontender Musculoskeletal: No acute arthritis involving any of the joint Neurologic: normal touch/pain/proprioception, moves all extremities and + confused ( pleasantly confused) remains generally weak and lethargic Results & Data Results & Data Vital Signs (Past 12 Hours) Vital Signs Temp Pulse Resp BP Pulse Ox O2 Del Method 02/14/24 08:41 36.3 C L 71 18 129/75 100 Room Air 02/14/24 08:00 Room Air Laboratory Results Short CBC 02/14/24 Range/Units 06:43 WBC 12.73 H (4.8-10.8) K/ul Hgb 14.0 (14.0-18.0) g/dl Hct 41.9 L (42.0-52.0) % Plt Count 100 L (130-400) K/uL [facility] 02/14/24 06:43 Sodium 142 Potassium 3.9 Chloride 113 H Carbon Dioxide 23 BUN 39 H Creatinine 1.23 Glucose 146 H Calcium 8.3 L Medications Administered Current Inpatient Medications Acetaminophen (Acetaminophen 325 Mg Tab) 650 mg PO Q4H PRN PRN Reason: Pain or Fever Stop: 03/11/24 19:00 Bisacodyl (Bisacodyl 10 Mg Supp) 10 mg DC DAILY PRN PRN Reason: 4th day of no BM in AM Stop: 03/11/24 19:00 Brimonidine Tartrate (Brimonidine Tartrate 0.2% 5ml) 1 drops OPB HS NAZANIN Stop: 03/11/24 20:59 Last Admin: 02/13/24 22:10 Dose: 1 drops Dextrose (Dextrose 50% 50 Ml Syringe) 25 - 50 ml IV UD PRN; Protocol PRN Reason: Hypoglycemia Protocol Stop: 03/12/24 12:03 Docusate Sodium (Docusate Sodium 100 Mg Cap) 100 mg PO Q24H PRN PRN Reason: constipation on day 2 no BM in the AM Stop: 03/11/24 19:00 Glucagon (Glucagon For Inj 1 Mg Vial) 1 mg SQ UD PRN; Protocol PRN Reason: Hypoglycemia Protocol Stop: 03/12/24 12:03 Glucose (Glucose 40% Gel 15 Gm Tube) 15 - 30 gm PO UD PRN; Protocol PRN Reason: Hypoglycemia Protocol Stop: 03/12/24 12:03 Glucose (Glucose 10 Tab/Tube) 4 - 8 tab PO UD PRN; Protocol PRN Reason: Hypoglycemia Protocol Stop: 03/12/24 12:03 Ceftriaxone Sodium (Rocephin) 1,000 mg in 50 mls @ 100 mls/hr IV Q24H [facility] Stop: 02/14/24 16:00 Last Infusion: 02/14/24 12:50 Dose: Infused Dextrose (D5w) 1,000 mls @ 80 mls/hr IV .[id number] NAZANIN Stop: 02/15/24 10:14 Last Admin: 02/14/24 10:14 Dose: 80 mls/hr Insulin Aspart (Insulin Aspart Per Unit Charge) 0 units SC ACHS [facility] Stop: 03/13/24 20:59 Last Admin: 02/14/24 12:26 Dose: Not Given Magnesium Oxide (Magnesium Oxide 400 Mg Tab) 400 mg PO HS [facility] Stop: 03/11/24 20:59 Last Admin: 02/13/24 22:07 Dose: 400 mg Memantine (Memantine Hcl 10 Mg Tab) 10 mg PO QAM [facility] Stop: 03/12/24 08:59 Last Admin: 02/14/24 08:56 Dose: 10 mg Miscellaneous (Carbohydrates For Hypoglycemia ) 15 - 30 gm PO UD PRN PRN Reason: Hypoglycemia Protocol Stop: 03/12/24 12:03 Ondansetron HCl (Ondansetron Inj 2 Mg/Ml 2 Ml Vial) 4 mg IV Q6H PRN PRN Reason: Nausea Stop: 03/11/24 19:00 Polyethylene Glycol (Polyethylene (Miralax) 17 Gm Pack) 17 gm PO DAILY PRN PRN Reason: Constipation Stop: 03/11/24 19:00 Sertraline HCl (Sertraline Hcl 50 Mg Tablet) 75 mg PO DAILY [facility] Stop: 03/12/24 08:59 Last Admin: 02/14/24 08:55 Dose: 75 mg Tacrolimus ([facility]imus 1 Mg Cap) [facility] Stop: 03/12/24 08:59 Last Admin: 02/14/24 08:55 Dose: 2 mg Tacrolimus (Tacrolimus 1 Mg Cap) 1 mg PO HS [facility] Stop: 03/11/24 20:59 Last Admin: 02/13/24 22:04 Dose: 1 mg
--- NOTE | 2024-02-14 19:02 | Nephrology Progress Note ---
Date of Service February 14, 2024 Assessment & Plan (1) Hypernatremia: Plan: presenting sodium 157 02/09; pt is unable to ask for water or to feed himself he has so far this admission had 1 L NS, 1L D5W and another 500 mL of D5 continue D5W at 80 mL hourly -reassess AM labs -encourage po intake >> pt needs to be fed ; notably though this poor po intake may also simply be a feature of his acute infection or progression of dementia care coordinated w/ Dr Tenorio via TText re goals of care and possible immunosuppression adjustments below; we are in agreement. (2) Acute renal failure superimposed on stage 3 chronic kidney disease: Plan: stage 1 nonoliguric TUNG slightly improved from presentation. UA difficult to interpret/chronically inflamed w/ chronic sherwood baseline creatinine 1.1-1.2. presenting creatinine 2 on 02/09 at 1300 >> back to baseline now w/ rehydration > creatinine 1.2 today -daily bmp -strict I/O -encourage po and normalize sodium to improve MS and ability to communicate and take pills (3) History of renal transplant: Plan: -cell cept on hold which is reasonable for now -routine tacro dosing to continue >>>>>>however I note he's not getting tac b/c of difficulty swallowing >> will d/w pharmacy about SL versus IV dosing, neither of which is optimal >>tacro level drawn at 0300 15 will not be a reliable trough d/t missed dose(S) and timing of draw >>need records from [facility] of whether he was taking these if family does not opt for hospice, suggest >>now that he's more alert he's taking AM tac past 3 days but only got PM dose in him one of 3 >> suggest granule form of tacro at d/c; cannot take longacting/once daily tacro (envarsus) b/c can't crush >resume cell cept >> suggest oral suspension after d/c; hospital does not stock FK granules or CC suspension after d/w pharmacy (4) TUNG (acute kidney injury): Admission and Anticipated Discharge Date Admission Date: February 10, 2024 Subjective more alert, interactive today; delayed entry for AM visit. family coming tomorrow (son) to see pt, review goals of care Review of Systems 2 Review of Systems: Unobtainable due to cognitive status Physical Exam 2 Constitutional: well developed, + cachectic, + frail appearing and cooperative; no acute distress Eyes: EOM intact bilaterally ENMT: Mouth: + dry oral mucous membranes Respiratory: normal respiratory effort Auscultation: + diminished lung sounds Cardiovascular: RRR, no murmur, no edema Gastrointestinal (Abdomen): Inspection/Auscultation: normal bowel sounds P ercussion/Palpation: abdomen soft (RLQ palpable/ NT allograft); abdomen nontender Musculoskeletal: Extremities: strength 5/5 throughout Skin: no rashes, warm and dry Neurologic: alert, tracks; holds my hand; does not follow commands; tries to speak but I cannot make out any words except ? maybe thank you or see you as I leave Results & Data Vital Signs (Past 12 Hours) Vital Signs Temp Pulse Resp BP Pulse Ox O2 Del Method 02/14/24 14:52 36.5 C 68 16 113/67 99 Room Air 02/14/24 08:41 36.3 C L 71 18 129/75 100 Room Air 02/14/24 08:00 Room Air Laboratory Results 02/14/24 06:43 02/14/24 06:43
[2024-02-15 06:39] LABS: Basophils # (auto) 0.02 K/uL (0.00-0.20); Basophils % (auto) 0.2 %; Eosinophils # (auto) 0.02 K/uL (0.00-0.50); Eosinophils % (auto) 0.2 %; Hematocrit (blood only) 39.7 % (42.0-52.0); Hemoglobin 13.3 g/dl (14.0-18.0); Immature Granulocytes # (auto) 0.05 K/uL (0.01-0.20); Immature Granulocytes % (auto) 0.6 %; Lymphocytes # (auto) 1.26 K/uL (1.20-3.40); Lymphocytes % (auto) 14.7 %; Mean Corpuscular Hemoglobin 29.9 pg (25.0-34.0); Mean Corpuscular Hgb Conc 33.5 g/dL (32.0-36.0); Mean Corpuscular Volume 89.2 fL (80.0-100.0); Mean Platelet Volume 9.5 fL (9.4-12.4); Monocytes # (auto) 0.42 K/uL (0.11-0.59); Monocytes % (auto) 4.9 %; Neutrophils # (auto) 6.79 K/uL (1.40-6.50); Neutrophils % (auto) 79.4 %; Platelet Count 112 K/uL (130-400); RDW Coefficient of Variation 12.5 % (11.5-14.5); RDW Standard Deviation 40.4 fL (36.4-46.3); Red Blood Count 4.45 M/uL (4.70-6.10); White Blood Count 8.56 K/ul (4.8-10.8)
[2024-02-15 07:05] LABS: BUN Creatinine Ratio 25.9 (10-20); Calcium 8.4 mg/dl (8.6-10.3); Creatinine Clr Calc Pharmacy 44.9 ml/min; Magnesium 1.8 mg/dl (1.7-2.4); Phosphorus 2.6 mg/dl (2.5-4.9); Potassium 3.9 mmol/L (3.5-5.1)
--- NOTE | 2024-02-15 14:40 | Palliative Family Discussion ---
Date of Service February 15, 2024 Patient Directed Conference Time of Meetin-1pm Participants: Pennie Bauer DNP, [facility] Patient participation: lacks capacity Patient Support System: liang Mustafa Other Healthcare Provider Participation: None Meeting Location: family meeting room Advanced Directive available:NO A 60 min face to face ACP meeting was held with family of TRESSA RODRIGUEZ. This meeting was necessary for determining the appropriate course of treatment. Topics of Discussion Topics of Discussion: 1.I met face to face for 60 min in family meeting room with liang Nunez and Joce Rodriguez about their dad, Tressa. 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 He long believed his renal issues would assure he first and now because of dementia, every time he asks to speak with her and is told she , he is re- traumatized. The sons feel he has a reasonable QOL and are not seeking a hospice route of care. They were open to ongoing management with palliative med in OP clinic for symptom mgt and ongoing GOC discussions. We spoke at length about his dementia, declining oral intake and how this leads to issues such as dehydration then complications with Na levels, UTI, AMS, etc. They understood but for now they feel "he bounces back after IV fluids and some time in the hospital followed by some rehab" and so they feel this is worth continuing. They expressed understanding that his underlying issues will continue to worsen and in time, he will not "bounce back," and at that time they are receptive to a more hospice focused plan of care. They were in agreement for switching his meds to tacrolimus sprinkles and cellcept oral solution. They also agreed to a speech and swallow eval but are unsure they would want a feeding tube. We spoke about code status and they want time to think about that some more, with son Joce noting "if he hadn't been a full code then Char would've let him just lie there in that bed drying out like a raisin!" I reviewed a POLST form and they are going to review it more together at [email or web address] For now, no changes to code status, continue current care and pare down meds to essential meds but stop extra/non essential meds await [employer] eval/reccs +/- does he need a video swallow. Other Content of Meetin. Opportunity given for participants to speak and ask questions. 2. Participants were assured of attention to patient comfort. 3. Reassurance provided. 4. Support was provided for informed, good-christiana decisions. 5. Emotions expressed by family were acknowledged and addressed. 6. Follow-up Outpatient: OP pall med, we will schedule clsoer to dc 7. Plan of Care: as noted above ACP time 60min Thank you for allowing us to participate in the ongoing care of this patient. Please page with any additional concerns. Casa Bauer DNP Director, Palliative Medicine
--- NOTE | 2024-02-15 14:45 | Palliative Care Progress Note ---
Date of Service February 15, 2024 Assessment & Plan (1) Weakness: (2) Mixed Alzheimer and vascular dementia: (3) Altered mental status: (4) Palliative care by specialist: (5) Acute dehydration: (6) Discussion about advance care planning held with family member: Plan: See separate ACP meeting (7) Immunocompromised: (8) Falls: (9) Cognitive decline: Plan ACP meeting held with family, see separate note Kevin is having more issues with oral intake, ?impaired swallow. A formal RETAIL LOSS PREVENTION SPECIALIST consult has been requested. Suggest paring down meds to his essential meds, but remove non essentials Nephro reccs for tacro sprinkles and MMF soln noted/in agreement Thank you for allowing us to participate in the ongoing care of this patient. Please page with any additional concerns. Casa Bauer DNP Director, Palliative Medicine Admission and Anticipated Discharge Date Admission Date: February 10, 2024 Subjective Kevin is a little more awake today sodium is better renal function improved oral intake is poor, sometimes will not take all meds confused at baseline but alert to self when called lilting to the right unable to follow commands no family present Review of Systems Review of Systems: All systems reviewed & are unremarkable except as noted in Subjective Physical Exam Physical Exam: Frail, chronically ill appearing elderly male confused at baseline but more alert than prior Unable to provide HPI Bitemp wasting perrla Unable to follow commands MM dry, dentition fair neck without stridor lungs diminished, scatt coarse breath sounds s1s2 abd soft, NTP no gross edema 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 unable to follow commands skin pale Results & Data Vital Signs (Past 12 Hours) Vital Signs Temp Pulse Resp BP Pulse Ox O2 Del Method 02/15/24 07:58 36.9 C 76 16 131/82 99 Room Air 02/15/24 07:45 Room Air Laboratory Results 02/15/24 02/15/24 02/15/24 Range/Units 11:30 08:01 05:59 WBC 8.56 (4.8-10.8) K/ul RBC 4.45 L (4.70-6.10) M/uL Hgb 13.3 L (14.0-18.0) g/dl POC Hgb (14.0-18.0) g/dl Hct 39.7 L (42.0-52.0) % POC Hct (42-52) % MCV 89.2 (80.0-100.0) fL MCH 29.9 (25.0-34.0) pg MCHC 33.5 (32.0-36.0) g/dL RDW Std Deviation 40.4 (36.4-46.3) fL RDW Coeff of Reema 12.5 (11.5-14.5) % Plt Count 112 L (130-400) K/uL MPV 9.5 (9.4-12.4) fL Immature Gran % (Auto) 0.6 % Neut % (Auto) 79.4 % Lymph % (Auto) 14.7 % [place] % (Auto) 4.9 % Eos % (Auto) 0.2 % Baso % (Auto) 0.2 % Neut # (Auto) 6.79 H (1.40-6.50) K/uL Lymph # (Auto) 1.26 (1.20-3.40) K/uL [place] # (Auto) 0.42 (0.11-0.59) K/uL Eos # (Auto) 0.02 (0.00-0.50) K/uL Baso # (Auto) 0.02 (0.00-0.20) K/uL Immature Gran # (Auto) 0.05 (0.01-0.20) K/uL VBG pH VBG pCO2 VBG pO2 VBG HCO3 VBG O2 Saturation VBG Base Excess Barometric Pressure POC Sodium (135-144) mmol/L Sodium 140 (136-145) mmol/L POC Potassium (3.3-5.0) mmol/L Potassium 3.9 (3.5-5.1) mmol/L POC Chloride (101-112) mmol/L Chloride 111 H (98-107) mmol/L Carbon Dioxide 25 (21-32) mmol/L POC Total CO2 (24-31) mmol/L Anion Gap 4 (3-11) POC Anion Gap (16-25) mmol/L POC BUN (7-18) mg/dl BUN 30 H (6-23) mg/dl Creatinine 1.16 (0.6-1.4) mg/dl POC Creatinine (0.6-1.3) mg/dl Est Cr Clr Drug Dosing 44.9 ml/min eGFR 63.28 BUN/Creatinine Ratio 25.9 H (10-20) Glucose 114 H (70-99(Fasting)) mg/dl POC Glucose 123 H 102 H (70-99) mg/dl POC Glucose (other) (70-99) mg/dl Lactate (0.4-2.0) mmol/L Calcium 8.4 L (8.6-10.3) mg/dl POC Ioniz Calcium Pia (1.12-1.32) mmol/l Phosphorus 2.6 (2.5-4.9) mg/dl Magnesium 1.8 (1.7-2.4) mg/dl Total Bilirubin (0.2-1.0) mg/dl AST (13-39) U/L ALT (7-52) U/L Alkaline Phosphatase (34-104) U/L Ammonia (18-72) umol/L Troponin I High Sens (0-20) pg/ml Total Protein (6.0-8.3) gm/dl Albumin (3.4-5.0) gm/dl Globulin (2.5-4.0) gm/dl Albumin/Globulin Ratio (0.9-2) TSH (0.300-4.500) uIu/ml Urine Color Urine Appearance (Clear) Urine pH (4.5-7.5) Ur Specific [place] (1.000-1.030) Urine Protein (Negative) Urine Glucose (UA) (Negative) Urine Ketones (Negative) Urine Blood (Negative) Urine Nitrite (Negative) Urine Bilirubin (Negative) Urine Urobilinogen (Negative) Ur Leukocyte Esterase (Negative) Urine WBC (Auto) (0-5) /hpf Urine RBC (Auto) (0-2) /hpf U Hyaline Cast (Auto) (0-2) /lpf U Epithel Cells (Auto) (0-2) /hpf Urine Bacteria (Auto) (None Seen) Amorphous Sediment (None Prsent) Tacrolimus mcg/L SARS-CoV-2, RNA, NAAT (NEGATIVE) 02/14/24 02/14/24 02/14/24 Range/Units 20:45 16:23 11:06 WBC (4.8-10.8) K/ul RBC (4.70-6.10) M/uL Hgb (14.0-18.0) g/dl POC Hgb (14.0-18.0) g/dl Hct (42.0-52.0) % POC Hct (42-52) % MCV (80.0-100.0) fL MCH (25.0-34.0) pg MCHC (32.0-36.0) g/dL RDW Std Deviation (36.4-46.3) fL RDW Coeff of Reema (11.5-14.5) % Plt Count (130-400) K/uL MPV (9.4-12.4) fL Immature Gran % (Auto) % Neut % (Auto) % Lymph % (Auto) % [place] % (Auto) % Eos % (Auto) % Baso % (Auto) % Neut # (Auto) (1.40-6.50) K/uL Lymph # (Auto) (1.20-3.40) K/uL [place] # (Auto) (0.11-0.59) K/uL Eos # (Auto) (0.00-0.50) K/uL Baso # (Auto) (0.00-0.20) K/uL Immature Gran # (Auto) (0.01-0.20) K/uL VBG pH VBG pCO2 VBG pO2 VBG HCO3 VBG O2 Saturation VBG Base Excess Barometric Pressure POC Sodium (135-144) mmol/L Sodium (136-145) mmol/L POC Potassium (3.3-5.0) mmol/L Potassium (3.5-5.1) mmol/L POC Chloride (101-112) mmol/L Chloride (98-107) mmol/L Carbon Dioxide (21-32) mmol/L POC Total CO2 (24-31) mmol/L Anion Gap (3-11) POC Anion Gap (16-25) mmol/L POC BUN (7-18) mg/dl BUN (6-23) mg/dl Creatinine (0.6-1.4) mg/dl POC Creatinine (0.6-1.3) mg/dl Est Cr Clr Drug Dosing ml/min eGFR BUN/Creatinine Ratio (10-20) Glucose (70-99(Fasting)) mg/dl POC Glucose 139 H 130 H 118 H (70-99) mg/dl POC Glucose (other) (70-99) mg/dl Lactate (0.4-2.0) mmol/L Calcium (8.6-10.3) mg/dl POC Ioniz Calcium Pia (1.12-1.32) mmol/l Phosphorus (2.5-4.9) mg/dl Magnesium (1.7-2.4) mg/dl Total Bilirubin (0.2-1.0) mg/dl AST (13-39) U/L ALT (7-52) U/L Alkaline Phosphatase (34-104) U/L Ammonia (18-72) umol/L Troponin I High Sens (0-20) pg/ml Total Protein (6.0-8.3) gm/dl Albumin (3.4-5.0) gm/dl Globulin (2.5-4.0) gm/dl Albumin/Globulin Ratio (0.9-2) TSH (0.300-4.500) uIu/ml Urine Color Urine Appearance (Clear) Urine pH (4.5-7.5) Ur Specific [place] (1.000-1.030) Urine Protein (Negative) Urine Glucose (UA) (Negative) Urine Ketones (Negative) Urine Blood (Negative) Urine Nitrite (Negative) Urine Bilirubin (Negative) Urine Urobilinogen (Negative) Ur Leukocyte Esterase (Negative) Urine WBC (Auto) (0-5) /hpf Urine RBC (Auto) (0-2) /hpf U Hyaline Cast (Auto) (0-2) /lpf U Epithel Cells (Auto) (0-2) /hpf Urine Bacteria (Auto) (None Seen) Amorphous Sediment (None Prsent) Tacrolimus mcg/L SARS-CoV-2, RNA, NAAT (NEGATIVE) 02/14/24 02/14/24 02/14/24 Range/Units 08:02 07:31 06:43 WBC 12.73 H (4.8-10.8) K/ul RBC 4.68 L (4.70-6.10) M/uL Hgb 14.0 (14.0-18.0) g/dl POC Hgb (14.0-18.0) g/dl Hct 41.9 L (42.0-52.0) % POC Hct (42-52) % MCV 89.5 (80.0-100.0) fL MCH 29.9 (25.0-34.0) pg MCHC 33.4 (32.0-36.0) g/dL RDW Std Deviation 40.8 (36.4-46.3) fL RDW Coeff of Reema 12.7 (11.5-14.5) % Plt Count 100 L (130-400) K/uL MPV 9.4 (9.4-12.4) fL Immature Gran % (Auto) % Neut % (Auto) % Lymph % (Auto) % [place] % (Auto) % Eos % (Auto) % Baso % (Auto) % Neut # (Auto) (1.40-6.50) K/uL Lymph # (Auto) (1.20-3.40) K/uL [place] # (Auto) (0.11-0.59) K/uL Eos # (Auto) (0.00-0.50) K/uL Baso # (Auto) (0.00-0.20) K/uL Immature Gran # (Auto) (0.01-0.20) K/uL VBG pH VBG pCO2 VBG pO2 VBG HCO3 VBG O2 Saturation VBG Base Excess Barometric Pressure POC Sodium (135-144) mmol/L Sodium 142 (136-145) mmol/L POC Potassium (3.3-5.0) mmol/L Potassium 3.9 (3.5-5.1) mmol/L POC Chloride (101-112) mmol/L Chloride 113 H (98-107) mmol/L Carbon Dioxide 23 (21-32) mmol/L POC Total CO2 (24-31) mmol/L Anion Gap 6 (3-11) POC Anion Gap (16-25) mmol/L POC BUN (7-18) mg/dl BUN 39 H (6-23) mg/dl Creatinine 1.23 (0.6-1.4) mg/dl POC Creatinine (0.6-1.3) mg/dl Est Cr Clr Drug Dosing 42.3 ml/min eGFR 58.98 BUN/Creatinine Ratio 31.7 H (10-20) Glucose 146 H (70-99(Fasting)) mg/dl POC Glucose 131 H 130 H (70-99) mg/dl POC Glucose (other) (70-99) mg/dl Lactate (0.4-2.0) mmol/L Calcium 8.3 L (8.6-10.3) mg/dl POC Ioniz Calcium Pia (1.12-1.32) mmol/l Phosphorus (2.5-4.9) mg/dl Magnesium (1.7-2.4) mg/dl Total Bilirubin (0.2-1.0) mg/dl AST (13-39) U/L ALT (7-52) U/L Alkaline Phosphatase (34-104) U/L Ammonia (18-72) umol/L Troponin I High Sens (0-20) pg/ml Total Protein (6.0-8.3) gm/dl Albumin (3.4-5.0) gm/dl Globulin (2.5-4.0) gm/dl Albumin/Globulin Ratio (0.9-2) TSH (0.300-4.500) uIu/ml Urine Color Urine Appearance (Clear) Urine pH (4.5-7.5) Ur Specific [place] (1.000-1.030) Urine Protein (Negative) Urine Glucose (UA) (Negative) Urine Ketones (Negative) Urine Blood (Negative) Urine Nitrite (Negative) Urine Bilirubin (Negative) Urine Urobilinogen (Negative) Ur Leukocyte Esterase (Negative) Urine WBC (Auto) (0-5) /hpf Urine RBC (Auto) (0-2) /hpf U Hyaline Cast (Auto) (0-2) /lpf U Epithel Cells (Auto) (0-2) /hpf Urine Bacteria (Auto) (None Seen) Amorphous Sediment (None Prsent) Tacrolimus mcg/L SARS-CoV-2, RNA, NAAT (NEGATIVE) 02/13/24 02/13/24 02/13/24 Range/Units 20:12 16:26 11:35 WBC (4.8-10.8) K/ul RBC (4.70-6.10) M/uL Hgb (14.0-18.0) g/dl POC Hgb (14.0-18.0) g/dl Hct (42.0-52.0) % POC Hct (42-52) % MCV (80.0-100.0) fL MCH (25.0-34.0) pg MCHC (32.0-36.0) g/dL RDW Std Deviation (36.4-46.3) fL RDW Coeff of Reema (11.5-14.5) % Plt Count (130-400) K/uL MPV (9.4-12.4) fL Immature Gran % (Auto) % Neut % (Auto) % Lymph % (Auto) % [place] % (Auto) % Eos % (Auto) % Baso % (Auto) % Neut # (Auto) (1.40-6.50) K/uL Lymph # (Auto) (1.20-3.40) K/uL [place] # (Auto) (0.11-0.59) K/uL Eos # (Auto) (0.00-0.50) K/uL Baso # (Auto) (0.00-0.20) K/uL Immature Gran # (Auto) (0.01-0.20) K/uL VBG pH VBG pCO2 VBG pO2 VBG HCO3 VBG O2 Saturation VBG Base Excess Barometric Pressure POC Sodium (135-144) mmol/L Sodium (136-145) mmol/L POC Potassium (3.3-5.0) mmol/L Potassium (3.5-5.1) mmol/L POC Chloride (101-112) mmol/L Chloride (98-107) mmol/L Carbon Dioxide (21-32) mmol/L POC Total CO2 (24-31) mmol/L Anion Gap (3-11) POC Anion Gap (16-25) mmol/L POC BUN (7-18) mg/dl BUN (6-23) mg/dl Creatinine (0.6-1.4) mg/dl POC Creatinine (0.6-1.3) mg/dl Est Cr Clr Drug Dosing ml/min eGFR BUN/Creatinine Ratio (10-20) Glucose (70-99(Fasting)) mg/dl POC Glucose 156 H 107 H 135 H (70-99) mg/dl POC Glucose (other) (70-99) mg/dl Lactate (0.4-2.0) mmol/L Calcium (8.6-10.3) mg/dl POC Ioniz Calcium Pia (1.12-1.32) mmol/l Phosphorus (2.5-4.9) mg/dl Magnesium (1.7-2.4) mg/dl Total Bilirubin (0.2-1.0) mg/dl AST (13-39) U/L ALT (7-52) U/L Alkaline Phosphatase (34-104) U/L Ammonia (18-72) umol/L Troponin I High Sens (0-20) pg/ml Total Protein (6.0-8.3) gm/dl Albumin (3.4-5.0) gm/dl Globulin (2.5-4.0) gm/dl Albumin/Globulin Ratio (0.9-2) TSH (0.300-4.500) uIu/ml Urine Color Urine Appearance (Clear) Urine pH (4.5-7.5) Ur Specific [place] (1.000-1.030) Urine Protein (Negative) Urine Glucose (UA) (Negative) Urine Ketones (Negative) Urine Blood (Negative) Urine Nitrite (Negative) Urine Bilirubin (Negative) Urine Urobilinogen (Negative) Ur Leukocyte Esterase (Negative) Urine WBC (Auto) (0-5) /hpf Urine RBC (Auto) (0-2) /hpf U Hyaline Cast (Auto) (0-2) /lpf U Epithel Cells (Auto) (0-2) /hpf Urine Bacteria (Auto) (None Seen) Amorphous Sediment (None Prsent) Tacrolimus mcg/L SARS-CoV-2, RNA, NAAT (NEGATIVE) 02/13/24 02/13/24 02/12/24 Range/Units 08:01 06:55 20:14 WBC (4.8-10.8) K/ul RBC (4.70-6.10) M/uL Hgb (14.0-18.0) g/dl POC Hgb (14.0-18.0) g/dl Hct (42.0-52.0) % POC Hct (42-52) % MCV (80.0-100.0) fL MCH (25.0-34.0) pg MCHC (32.0-36.0) g/dL RDW Std Deviation (36.4-46.3) fL RDW Coeff of Reema (11.5-14.5) % Plt Count (130-400) K/uL MPV (9.4-12.4) fL Immature Gran % (Auto) % Neut % (Auto) % Lymph % (Auto) % [place] % (Auto) % Eos % (Auto) % Baso % (Auto) % Neut # (Auto) (1.40-6.50) K/uL Lymph # (Auto) (1.20-3.40) K/uL [place] # (Auto) (0.11-0.59) K/uL Eos # (Auto) (0.00-0.50) K/uL Baso # (Auto) (0.00-0.20) K/uL Immature Gran # (Auto) (0.01-0.20) K/uL VBG pH VBG pCO2 VBG pO2 VBG HCO3 VBG O2 Saturation VBG Base Excess Barometric Pressure POC Sodium (135-144) mmol/L Sodium 147 H (136-145) mmol/L POC Potassium (3.3-5.0) mmol/L Potassium 4.1 (3.5-5.1) mmol/L POC Chloride (101-112) mmol/L Chloride 117 H (98-107) mmol/L Carbon Dioxide 25 (21-32) mmol/L POC Total CO2 (24-31) mmol/L Anion Gap 5 (3-11) POC Anion Gap (16-25) mmol/L POC BUN (7-18) mg/dl BUN 48 H (6-23) mg/dl Creatinine 1.43 H (0.6-1.4) mg/dl POC Creatinine (0.6-1.3) mg/dl Est Cr Clr Drug Dosing 36.4 ml/min eGFR 49.23 BUN/Creatinine Ratio 33.6 H (10-20) Glucose 134 H (70-99(Fasting)) mg/dl POC Glucose 113 H 129 H (70-99) mg/dl POC Glucose (other) (70-99) mg/dl Lactate (0.4-2.0) mmol/L Calcium 8.7 (8.6-10.3) mg/dl POC Ioniz Calcium Pia (1.12-1.32) mmol/l Phosphorus (2.5-4.9) mg/dl Magnesium 1.9 (1.7-2.4) mg/dl Total Bilirubin (0.2-1.0) mg/dl AST (13-39) U/L ALT (7-52) U/L Alkaline Phosphatase (34-104) U/L Ammonia (18-72) umol/L Troponin I High Sens (0-20) pg/ml Total Protein (6.0-8.3) gm/dl Albumin (3.4-5.0) gm/dl Globulin (2.5-4.0) gm/dl Albumin/Globulin Ratio (0.9-2) TSH (0.300-4.500) uIu/ml Urine Color Urine Appearance (Clear) Urine pH (4.5-7.5) Ur Specific [place] (1.000-1.030) Urine Protein (Negative) Urine Glucose (UA) (Negative) Urine Ketones (Negative) Urine Blood (Negative) Urine Nitrite (Negative) Urine Bilirubin (Negative) Urine Urobilinogen (Negative) Ur Leukocyte Esterase (Negative) Urine WBC (Auto) (0-5) /hpf Urine RBC (Auto) (0-2) /hpf U Hyaline Cast (Auto) (0-2) /lpf U Epithel Cells (Auto) (0-2) /hpf Urine Bacteria (Auto) (None Seen) Amorphous Sediment (None Prsent) Tacrolimus mcg/L SARS-CoV-2, RNA, NAAT (NEGATIVE) 02/12/24 02/12/24 02/12/24 Range/Units 16:49 16:02 11:21 WBC (4.8-10.8) K/ul RBC (4.70-6.10) M/uL Hgb (14.0-18.0) g/dl POC Hgb (14.0-18.0) g/dl Hct (42.0-52.0) % POC Hct (42-52) % MCV (80.0-100.0) fL MCH (25.0-34.0) pg MCHC (32.0-36.0) g/dL RDW Std Deviation (36.4-46.3) fL RDW Coeff of Reema (11.5-14.5) % Plt Count (130-400) K/uL MPV (9.4-12.4) fL Immature Gran % (Auto) % Neut % (Auto) % Lymph % (Auto) % [place] % (Auto) % Eos % (Auto) % Baso % (Auto) % Neut # (Auto) (1.40-6.50) K/uL Lymph # (Auto) (1.20-3.40) K/uL [place] # (Auto) (0.11-0.59) K/uL Eos # (Auto) (0.00-0.50) K/uL Baso # (Auto) (0.00-0.20) K/uL Immature Gran # (Auto) (0.01-0.20) K/uL VBG pH VBG pCO2 VBG pO2 VBG HCO3 VBG O2 Saturation VBG Base Excess Barometric Pressure POC Sodium (135-144) mmol/L Sodium 145 (136-145) mmol/L POC Potassium (3.3-5.0) mmol/L Potassium 4.3 D (3.5-5.1) mmol/L POC Chloride (101-112) mmol/L Chloride 115 H (98-107) mmol/L Carbon Dioxide 24 (21-32) mmol/L POC Total CO2 (24-31) mmol/L Anion Gap 6 (3-11) POC Anion Gap (16-25) mmol/L POC BUN (7-18) mg/dl BUN 50 H (6-23) mg/dl Creatinine 1.51 H (0.6-1.4) mg/dl POC Creatinine (0.6-1.3) mg/dl Est Cr Clr Drug Dosing 33.6 ml/min eGFR 46.11 BUN/Creatinine Ratio 33.1 H (10-20) Glucose 236 H (70-99(Fasting)) mg/dl POC Glucose 136 H 142 H (70-99) mg/dl POC Glucose (other) (70-99) mg/dl Lactate (0.4-2.0) mmol/L Calcium 8.6 (8.6-10.3) mg/dl POC Ioniz Calcium Pia (1.12-1.32) mmol/l Phosphorus (2.5-4.9) mg/dl Magnesium (1.7-2.4) mg/dl Total Bilirubin (0.2-1.0) mg/dl AST (13-39) U/L ALT (7-52) U/L Alkaline Phosphatase (34-104) U/L Ammonia (18-72) umol/L Troponin I High Sens (0-20) pg/ml Total Protein (6.0-8.3) gm/dl Albumin (3.4-5.0) gm/dl Globulin (2.5-4.0) gm/dl Albumin/Globulin Ratio (0.9-2) TSH (0.300-4.500) uIu/ml Urine Color Urine Appearance (Clear) Urine pH (4.5-7.5) Ur Specific [place] (1.000-1.030) Urine Protein (Negative) Urine Glucose (UA) (Negative) Urine Ketones (Negative) Urine Blood (Negative) Urine Nitrite (Negative) Urine Bilirubin (Negative) Urine Urobilinogen (Negative) Ur Leukocyte Esterase (Negative) Urine WBC (Auto) (0-5) /hpf Urine RBC (Auto) (0-2) /hpf U Hyaline Cast (Auto) (0-2) /lpf U Epithel Cells (Auto) (0-2) /hpf Urine Bacteria (Auto) (None Seen) Amorphous Sediment (None Prsent) Tacrolimus mcg/L SARS-CoV-2, RNA, NAAT (NEGATIVE) 02/12/24 02/12/24 02/12/24 Range/Units 07:46 05:39 00:31 WBC 8.19 (4.8-10.8) K/ul RBC 4.80 (4.70-6.10) M/uL Hgb 14.3 (14.0-18.0) g/dl POC Hgb (14.0-18.0) g/dl Hct 44.5 (42.0-52.0) % POC Hct (42-52) % MCV 92.7 (80.0-100.0) fL MCH 29.8 (25.0-34.0) pg MCHC 32.1 (32.0-36.0) g/dL RDW Std Deviation 43.5 (36.4-46.3) fL RDW Coeff of Reema 12.7 (11.5-14.5) % Plt Count 116 L (130-400) K/uL MPV 9.2 L (9.4-12.4) fL Immature Gran % (Auto) % Neut % (Auto) % Lymph % (Auto) % [place] % (Auto) % Eos % (Auto) % Baso % (Auto) % Neut # (Auto) (1.40-6.50) K/uL Lymph # (Auto) (1.20-3.40) K/uL [place] # (Auto) (0.11-0.59) K/uL Eos # (Auto) (0.00-0.50) K/uL Baso # (Auto) (0.00-0.20) K/uL Immature Gran # (Auto) (0.01-0.20) K/uL VBG pH VBG pCO2 VBG pO2 VBG HCO3 VBG O2 Saturation VBG Base Excess Barometric Pressure POC Sodium (135-144) mmol/L Sodium 149 H 151 H (136-145) mmol/L POC Potassium (3.3-5.0) mmol/L Potassium 3.4 L (3.5-5.1) mmol/L POC Chloride (101-112) mmol/L Chloride 117 H (98-107) mmol/L Carbon Dioxide 24 (21-32) mmol/L POC Total CO2 (24-31) mmol/L Anion Gap 8 (3-11) POC Anion Gap (16-25) mmol/L POC BUN (7-18) mg/dl BUN 53 H (6-23) mg/dl Creatinine 1.52 H (0.6-1.4) mg/dl POC Creatinine (0.6-1.3) mg/dl Est Cr Clr Drug Dosing 33.4 ml/min eGFR 45.75 BUN/Creatinine Ratio 34.9 H (10-20) Glucose 205 H (70-99(Fasting)) mg/dl POC Glucose 146 H (70-99) mg/dl POC Glucose (other) (70-99) mg/dl Lactate (0.4-2.0) mmol/L Calcium 8.9 (8.6-10.3) mg/dl POC Ioniz Calcium Pia (1.12-1.32) mmol/l Phosphorus (2.5-4.9) mg/dl Magnesium 2.0 (1.7-2.4) mg/dl Total Bilirubin (0.2-1.0) mg/dl AST (13-39) U/L ALT (7-52) U/L Alkaline Phosphatase (34-104) U/L Ammonia (18-72) umol/L Troponin I High Sens (0-20) pg/ml Total Protein (6.0-8.3) gm/dl Albumin (3.4-5.0) gm/dl Globulin (2.5-4.0) gm/dl Albumin/Globulin Ratio (0.9-2) TSH (0.300-4.500) uIu/ml Urine Color Urine Appearance (Clear) Urine pH (4.5-7.5) Ur Specific [place] (1.000-1.030) Urine Protein (Negative) Urine Glucose (UA) (Negative) Urine Ketones (Negative) Urine Blood (Negative) Urine Nitrite (Negative) Urine Bilirubin (Negative) Urine Urobilinogen (Negative) Ur Leukocyte Esterase (Negative) Urine WBC (Auto) (0-5) /hpf Urine RBC (Auto) (0-2) /hpf U Hyaline Cast (Auto) (0-2) /lpf U Epithel Cells (Auto) (0-2) /hpf Urine Bacteria (Auto) (None Seen) Amorphous Sediment (None Prsent) Tacrolimus mcg/L SARS-CoV-2, RNA, NAAT (NEGATIVE) 02/12/24 02/11/24 02/11/24 Range/Units 00:01 20:38 17:12 WBC (4.8-10.8) K/ul RBC (4.70-6.10) M/uL Hgb (14.0-18.0) g/dl POC Hgb (14.0-18.0) g/dl Hct (42.0-52.0) % POC Hct (42-52) % MCV (80.0-100.0) fL MCH (25.0-34.0) pg MCHC (32.0-36.0) g/dL RDW Std Deviation (36.4-46.3) fL RDW Coeff of Reema (11.5-14.5) % Plt Count (130-400) K/uL MPV (9.4-12.4) fL Immature Gran % (Auto) % Neut % (Auto) % Lymph % (Auto) % [place] % (Auto) % Eos % (Auto) % Baso % (Auto) % Neut # (Auto) (1.40-6.50) K/uL Lymph # (Auto) (1.20-3.40) K/uL [place] # (Auto) (0.11-0.59) K/uL Eos # (Auto) (0.00-0.50) K/uL Baso # (Auto) (0.00-0.20) K/uL Immature Gran # (Auto) (0.01-0.20) K/uL VBG pH VBG pCO2 VBG pO2 VBG HCO3 VBG O2 Saturation VBG Base Excess Barometric Pressure POC Sodium (135-144) mmol/L Sodium 154 H (136-145) mmol/L POC Potassium (3.3-5.0) mmol/L Potassium 3.9 (3.5-5.1) mmol/L POC Chloride (101-112) mmol/L Chloride 121 H (98-107) mmol/L Carbon Dioxide 27 (21-32) mmol/L POC Total CO2 (24-31) mmol/L Anion Gap 6 (3-11) POC Anion Gap (16-25) mmol/L POC BUN (7-18) mg/dl BUN 62 H (6-23) mg/dl Creatinine 1.73 H (0.6-1.4) mg/dl POC Creatinine (0.6-1.3) mg/dl Est Cr Clr Drug Dosing 29.1 ml/min eGFR 39.17 BUN/Creatinine Ratio 35.8 H (10-20) Glucose 181 H (70-99(Fasting)) mg/dl POC Glucose 140 H 148 H (70-99) mg/dl POC Glucose (other) (70-99) mg/dl Lactate (0.4-2.0) mmol/L Calcium 9.2 (8.6-10.3) mg/dl POC Ioniz Calcium Pia (1.12-1.32) mmol/l Phosphorus (2.5-4.9) mg/dl Magnesium (1.7-2.4) mg/dl Total Bilirubin (0.2-1.0) mg/dl AST (13-39) U/L ALT (7-52) U/L Alkaline Phosphatase (34-104) U/L Ammonia (18-72) umol/L Troponin I High Sens (0-20) pg/ml Total Protein (6.0-8.3) gm/dl Albumin (3.4-5.0) gm/dl Globulin (2.5-4.0) gm/dl Albumin/Globulin Ratio (0.9-2) TSH (0.300-4.500) uIu/ml Urine Color Urine Appearance (Clear) Urine pH (4.5-7.5) Ur Specific [place] (1.000-1.030) Urine Protein (Negative) Urine Glucose (UA) (Negative) Urine Ketones (Negative) Urine Blood (Negative) Urine Nitrite (Negative) Urine Bilirubin (Negative) Urine Urobilinogen (Negative) Ur Leukocyte Esterase (Negative) Urine WBC (Auto) (0-5) /hpf Urine RBC (Auto) (0-2) /hpf U Hyaline Cast (Auto) (0-2) /lpf U Epithel Cells (Auto) (0-2) /hpf Urine Bacteria (Auto) (None Seen) Amorphous Sediment (None Prsent) Tacrolimus mcg/L SARS-CoV-2, RNA, NAAT (NEGATIVE) 02/11/24 02/11/24 02/11/24 Range/Units 17:07 16:45 15:48 WBC (4.8-10.8) K/ul RBC (4.70-6.10) M/uL Hgb (14.0-18.0) g/dl POC Hgb (14.0-18.0) g/dl Hct (42.0-52.0) % POC Hct (42-52) % MCV (80.0-100.0) fL MCH (25.0-34.0) pg MCHC (32.0-36.0) g/dL RDW Std Deviation (36.4-46.3) fL RDW Coeff of Reema (11.5-14.5) % Plt Count (130-400) K/uL MPV (9.4-12.4) fL Immature Gran % (Auto) % Neut % (Auto) % Lymph % (Auto) % [place] % (Auto) % Eos % (Auto) % Baso % (Auto) % Neut # (Auto) (1.40-6.50) K/uL Lymph # (Auto) (1.20-3.40) K/uL [place] # (Auto) (0.11-0.59) K/uL Eos # (Auto) (0.00-0.50) K/uL Baso # (Auto) (0.00-0.20) K/uL Immature Gran # (Auto) (0.01-0.20) K/uL VBG pH VBG pCO2 VBG pO2 VBG HCO3 VBG O2 Saturation VBG Base Excess Barometric Pressure POC Sodium (135-144) mmol/L Sodium Cancelled (136-145) mmol/L POC Potassium (3.3-5.0) mmol/L Potassium Cancelled (3.5-5.1) mmol/L POC Chloride (101-112) mmol/L Chloride Cancelled (98-107) mmol/L Carbon Dioxide Cancelled (21-32) mmol/L POC Total CO2 (24-31) mmol/L Anion Gap Cancelled (3-11) POC Anion Gap (16-25) mmol/L POC BUN (7-18) mg/dl BUN Cancelled (6-23) mg/dl Creatinine Cancelled (0.6-1.4) mg/dl POC Creatinine (0.6-1.3) mg/dl Est Cr Clr Drug Dosing Cancelled ml/min eGFR Cancelled BUN/Creatinine Ratio Cancelled (10-20) Glucose Cancelled (70-99(Fasting)) mg/dl POC Glucose 133 H 142 H (70-99) mg/dl POC Glucose (other) (70-99) mg/dl Lactate (0.4-2.0) mmol/L Calcium Cancelled (8.6-10.3) mg/dl POC Ioniz Calcium Pia (1.12-1.32) mmol/l Phosphorus (2.5-4.9) mg/dl Magnesium (1.7-2.4) mg/dl Total Bilirubin (0.2-1.0) mg/dl AST (13-39) U/L ALT (7-52) U/L Alkaline Phosphatase (34-104) U/L Ammonia (18-72) umol/L Troponin I High Sens (0-20) pg/ml Total Protein (6.0-8.3) gm/dl Albumin (3.4-5.0) gm/dl Globulin (2.5-4.0) gm/dl Albumin/Globulin Ratio (0.9-2) TSH (0.300-4.500) uIu/ml Urine Color Urine Appearance (Clear) Urine pH (4.5-7.5) Ur Specific [place] (1.000-1.030) Urine Protein (Negative) Urine Glucose (UA) (Negative) Urine Ketones (Negative) Urine Blood (Negative) Urine Nitrite (Negative) Urine Bilirubin (Negative) Urine Urobilinogen (Negative) Ur Leukocyte Esterase (Negative) Urine WBC (Auto) (0-5) /hpf Urine RBC (Auto) (0-2) /hpf U Hyaline Cast (Auto) (0-2) /lpf U Epithel Cells (Auto) (0-2) /hpf Urine Bacteria (Auto) (None Seen) Amorphous Sediment (None Prsent) Tacrolimus mcg/L SARS-CoV-2, RNA, NAAT (NEGATIVE) 02/11/24 02/11/24 02/11/24 Range/Units 12:22 09:00 02:58 WBC 12.50 H (4.8-10.8) K/ul RBC 5.19 (4.70-6.10) M/uL Hgb 15.5 (14.0-18.0) g/dl POC Hgb (14.0-18.0) g/dl Hct 48.1 (42.0-52.0) % POC Hct (42-52) % MCV 92.7 (80.0-100.0) fL MCH 29.9 (25.0-34.0) pg MCHC 32.2 (32.0-36.0) g/dL RDW Std Deviation 43.3 (36.4-46.3) fL RDW Coeff of Reema 12.8 (11.5-14.5) % Plt Count 131 (130-400) K/uL MPV 9.3 L (9.4-12.4) fL Immature Gran % (Auto) % Neut % (Auto) % Lymph % (Auto) % [place] % (Auto) % Eos % (Auto) % Baso % (Auto) % Neut # (Auto) (1.40-6.50) K/uL Lymph # (Auto) (1.20-3.40) K/uL [place] # (Auto) (0.11-0.59) K/uL Eos # (Auto) (0.00-0.50) K/uL Baso # (Auto) (0.00-0.20) K/uL Immature Gran # (Auto) (0.01-0.20) K/uL VBG pH VBG pCO2 VBG pO2 VBG HCO3 VBG O2 Saturation VBG Base Excess Barometric Pressure POC Sodium (135-144) mmol/L Sodium 155 H 150 H (136-145) mmol/L POC Potassium (3.3-5.0) mmol/L Potassium 3.9 3.6 (3.5-5.1) mmol/L POC Chloride (101-112) mmol/L Chloride 122 H 117 H (98-107) mmol/L Carbon Dioxide 27 25 (21-32) mmol/L POC Total CO2 (24-31) mmol/L Anion Gap 6 8 (3-11) POC Anion Gap (16-25) mmol/L POC BUN (7-18) mg/dl BUN 64 H 68 H (6-23) mg/dl Creatinine 1.81 H 1.70 H (0.6-1.4) mg/dl POC Creatinine (0.6-1.3) mg/dl Est Cr Clr Drug Dosing 27.8 29.6 ml/min eGFR 37.10 40.00 BUN/Creatinine Ratio 35.4 H 40.0 H (10-20) Glucose 130 H 295 H (70-99(Fasting)) mg/dl POC Glucose 112 H (70-99) mg/dl POC Glucose (other) (70-99) mg/dl Lactate (0.4-2.0) mmol/L Calcium 9.5 9.3 (8.6-10.3) mg/dl POC Ioniz Calcium Pia (1.12-1.32) mmol/l Phosphorus (2.5-4.9) mg/dl Magnesium 2.3 2.3 (1.7-2.4) mg/dl Total Bilirubin (0.2-1.0) mg/dl AST (13-39) U/L ALT (7-52) U/L Alkaline Phosphatase (34-104) U/L Ammonia (18-72) umol/L Troponin I High Sens (0-20) pg/ml Total Protein (6.0-8.3) gm/dl Albumin (3.4-5.0) gm/dl Globulin (2.5-4.0) gm/dl Albumin/Globulin Ratio (0.9-2) TSH (0.300-4.500) uIu/ml Urine Color Urine Appearance (Clear) Urine pH (4.5-7.5) Ur Specific [place] (1.000-1.030) Urine Protein (Negative) Urine Glucose (UA) (Negative) Urine Ketones (Negative) Urine Blood (Negative) Urine Nitrite (Negative) Urine Bilirubin (Negative) Urine Urobilinogen (Negative) Ur Leukocyte Esterase (Negative) Urine WBC (Auto) (0-5) /hpf Urine RBC (Auto) (0-2) /hpf U Hyaline Cast (Auto) (0-2) /lpf U Epithel Cells (Auto) (0-2) /hpf Urine Bacteria (Auto) (None Seen) Amorphous Sediment (None Prsent) Tacrolimus 6.8 mcg/L SARS-CoV-2, RNA, NAAT (NEGATIVE) 02/11/24 02/10/24 02/10/24 Range/Units 02:58 22:49 20:51 WBC 12.40 H (4.8-10.8) K/ul RBC 5.01 (4.70-6.10) M/uL Hgb 14.9 (14.0-18.0) g/dl POC Hgb (14.0-18.0) g/dl Hct 46.7 (42.0-52.0) % POC Hct (42-52) % MCV 93.2 (80.0-100.0) fL MCH 29.7 (25.0-34.0) pg MCHC 31.9 L (32.0-36.0) g/dL RDW Std Deviation 43.8 (36.4-46.3) fL RDW Coeff of Reema 12.8 (11.5-14.5) % Plt Count 132 (130-400) K/uL MPV 9.4 (9.4-12.4) fL Immature Gran % (Auto) % Neut % (Auto) % Lymph % (Auto) % [place] % (Auto) % Eos % (Auto) % Baso % (Auto) % Neut # (Auto) (1.40-6.50) K/uL Lymph # (Auto) (1.20-3.40) K/uL [place] # (Auto) (0.11-0.59) K/uL Eos # (Auto) (0.00-0.50) K/uL Baso # (Auto) (0.00-0.20) K/uL Immature Gran # (Auto) (0.01-0.20) K/uL VBG pH 7.34 L VBG pCO2 49 VBG pO2 < 20 VBG HCO3 26 VBG O2 Saturation < 60.0 VBG Base Excess 0 Barometric Pressure POC Sodium (135-144) mmol/L Sodium Cancelled 155 H (136-145) mmol/L POC Potassium (3.3-5.0) mmol/L Potassium (3.5-5.1) mmol/L POC Chloride (101-112) mmol/L Chloride (98-107) mmol/L Carbon Dioxide (21-32) mmol/L POC Total CO2 (24-31) mmol/L Anion Gap (3-11) POC Anion Gap (16-25) mmol/L POC BUN (7-18) mg/dl BUN (6-23) mg/dl Creatinine (0.6-1.4) mg/dl POC Creatinine (0.6-1.3) mg/dl Est Cr Clr Drug Dosing ml/min eGFR BUN/Creatinine Ratio (10-20) Glucose (70-99(Fasting)) mg/dl POC Glucose (70-99) mg/dl POC Glucose (other) (70-99) mg/dl Lactate (0.4-2.0) mmol/L Calcium (8.6-10.3) mg/dl POC Ioniz Calcium Pia (1.12-1.32) mmol/l Phosphorus (2.5-4.9) mg/dl Magnesium (1.7-2.4) mg/dl Total Bilirubin (0.2-1.0) mg/dl AST (13-39) U/L ALT (7-52) U/L Alkaline Phosphatase (34-104) U/L Ammonia (18-72) umol/L Troponin I High Sens 24.3 H (0-20) pg/ml Total Protein (6.0-8.3) gm/dl Albumin (3.4-5.0) gm/dl Globulin (2.5-4.0) gm/dl Albumin/Globulin Ratio (0.9-2) TSH (0.300-4.500) uIu/ml Urine Color Urine Appearance (Clear) Urine pH (4.5-7.5) Ur Specific [place] (1.000-1.030) Urine Protein (Negative) Urine Glucose (UA) (Negative) Urine Ketones (Negative) Urine Blood (Negative) Urine Nitrite (Negative) Urine Bilirubin (Negative) Urine Urobilinogen (Negative) Ur Leukocyte Esterase (Negative) Urine WBC (Auto) (0-5) /hpf Urine RBC (Auto) (0-2) /hpf U Hyaline Cast (Auto) (0-2) /lpf U Epithel Cells (Auto) (0-2) /hpf Urine Bacteria (Auto) (None Seen) Amorphous Sediment (None Prsent) Tacrolimus mcg/L SARS-CoV-2, RNA, NAAT (NEGATIVE) 02/10/24 02/10/24 02/10/24 Range/Units 20:44 20:01 20:01 WBC (4.8-10.8) K/ul RBC (4.70-6.10) M/uL Hgb (14.0-18.0) g/dl POC Hgb (14.0-18.0) g/dl Hct (42.0-52.0) % POC Hct (42-52) % MCV (80.0-100.0) fL MCH (25.0-34.0) pg MCHC (32.0-36.0) g/dL RDW Std Deviation (36.4-46.3) fL RDW Coeff of Reema (11.5-14.5) % Plt Count (130-400) K/uL MPV (9.4-12.4) fL Immature Gran % (Auto) % Neut % (Auto) % Lymph % (Auto) % [place] % (Auto) % Eos % (Auto) % Baso % (Auto) % Neut # (Auto) (1.40-6.50) K/uL Lymph # (Auto) (1.20-3.40) K/uL [place] # (Auto) (0.11-0.59) K/uL Eos # (Auto) (0.00-0.50) K/uL Baso # (Auto) (0.00-0.20) K/uL Immature Gran # (Auto) (0.01-0.20) K/uL VBG pH Cancelled VBG pCO2 Cancelled VBG pO2 Cancelled VBG HCO3 Cancelled VBG O2 Saturation Cancelled VBG Base Excess Cancelled Barometric Pressure Cancelled POC Sodium (135-144) mmol/L Sodium Cancelled 156 H* (136-145) mmol/L POC Potassium (3.3-5.0) mmol/L Potassium 3.8 (3.5-5.1) mmol/L POC Chloride (101-112) mmol/L Chloride 123 H (98-107) mmol/L Carbon Dioxide 24 (21-32) mmol/L POC Total CO2 (24-31) mmol/L Anion Gap 9 (3-11) POC Anion Gap (16-25) mmol/L POC BUN (7-18) mg/dl BUN 68 H (6-23) mg/dl Creatinine 1.76 H (0.6-1.4) mg/dl POC Creatinine (0.6-1.3) mg/dl Est Cr Clr Drug Dosing 28.6 ml/min eGFR 38.37 BUN/Creatinine Ratio 38.6 H (10-20) Glucose 147 H (70-99(Fasting)) mg/dl POC Glucose 117 H (70-99) mg/dl POC Glucose (other) (70-99) mg/dl Lactate (0.4-2.0) mmol/L Calcium 9.5 (8.6-10.3) mg/dl POC Ioniz Calcium Pia (1.12-1.32) mmol/l Phosphorus (2.5-4.9) mg/dl Magnesium (1.7-2.4) mg/dl Total Bilirubin (0.2-1.0) mg/dl AST (13-39) U/L ALT (7-52) U/L Alkaline Phosphatase (34-104) U/L Ammonia (18-72) umol/L Troponin I High Sens 30.1 H D (0-20) pg/ml Total Protein (6.0-8.3) gm/dl Albumin (3.4-5.0) gm/dl Globulin (2.5-4.0) gm/dl Albumin/Globulin Ratio (0.9-2) TSH (0.300-4.500) uIu/ml Urine Color Urine Appearance (Clear) Urine pH (4.5-7.5) Ur Specific [place] (1.000-1.030) Urine Protein (Negative) Urine Glucose (UA) (Negative) Urine Ketones (Negative) Urine Blood (Negative) Urine Nitrite (Negative) Urine Bilirubin (Negative) Urine Urobilinogen (Negative) Ur Leukocyte Esterase (Negative) Urine WBC (Auto) (0-5) /hpf Urine RBC (Auto) (0-2) /hpf U Hyaline Cast (Auto) (0-2) /lpf U Epithel Cells (Auto) (0-2) /hpf Urine Bacteria (Auto) (None Seen) Amorphous Sediment (None Prsent) Tacrolimus mcg/L SARS-CoV-2, RNA, NAAT (NEGATIVE) 12/14/24 12/14/24 12/14/24 Range/Units 16:22 14:50 14:40 WBC (4.8-10.8) K/ul RBC (4.70-6.10) M/uL Hgb (14.0-18.0) g/dl POC Hgb (14.0-18.0) g/dl Hct (42.0-52.0) % POC Hct (42-52) % MCV (80.0-100.0) fL MCH (25.0-34.0) pg MCHC (32.0-36.0) g/dL RDW Std Deviation (36.4-46.3) fL RDW Coeff of Reema (11.5-14.5) % Plt Count (130-400) K/uL MPV (9.4-12.4) fL Immature Gran % (Auto) % Neut % (Auto) % Lymph % (Auto) % [place] % (Auto) % Eos % (Auto) % Baso % (Auto) % Neut # (Auto) (1.40-6.50) K/uL Lymph # (Auto) (1.20-3.40) K/uL [place] # (Auto) (0.11-0.59) K/uL Eos # (Auto) (0.00-0.50) K/uL Baso # (Auto) (0.00-0.20) K/uL Immature Gran # (Auto) (0.01-0.20) K/uL VBG pH VBG pCO2 VBG pO2 VBG HCO3 VBG O2 Saturation VBG Base Excess Barometric Pressure POC Sodium (135-144) mmol/L Sodium (136-145) mmol/L POC Potassium (3.3-5.0) mmol/L Potassium (3.5-5.1) mmol/L POC Chloride (101-112) mmol/L Chloride (98-107) mmol/L Carbon Dioxide (21-32) mmol/L POC Total CO2 (24-31) mmol/L Anion Gap (3-11) POC Anion Gap (16-25) mmol/L POC BUN (7-18) mg/dl BUN (6-23) mg/dl Creatinine (0.6-1.4) mg/dl POC Creatinine (0.6-1.3) mg/dl Est Cr Clr Drug Dosing ml/min eGFR BUN/Creatinine Ratio (10-20) Glucose (70-99(Fasting)) mg/dl POC Glucose (70-99) mg/dl POC Glucose (other) (70-99) mg/dl Lactate 1.6 (0.4-2.0) mmol/L Calcium (8.6-10.3) mg/dl POC Ioniz Calcium Pia (1.12-1.32) mmol/l Phosphorus (2.5-4.9) mg/dl Magnesium (1.7-2.4) mg/dl Total Bilirubin (0.2-1.0) mg/dl AST (13-39) U/L ALT (7-52) U/L Alkaline Phosphatase (34-104) U/L Ammonia 21.0 (18-72) umol/L Troponin I High Sens 19.2 D (0-20) pg/ml Total Protein (6.0-8.3) gm/dl Albumin (3.4-5.0) gm/dl Globulin (2.5-4.0) gm/dl Albumin/Globulin Ratio (0.9-2) TSH (0.300-4.500) uIu/ml Urine Color Dark Yellow Urine Appearance Turbid A (Clear) Urine pH 6.0 (4.5-7.5) Ur Specific [place] 1.026 (1.000-1.030) Urine Protein 3+ H (Negative) Urine Glucose (UA) Negative (Negative) Urine Ketones Negative (Negative) Urine Blood 3+ H (Negative) Urine Nitrite Negative (Negative) Urine Bilirubin 1+ H (Negative) Urine Urobilinogen Negative (Negative) Ur Leukocyte Esterase 3+ H (Negative) Urine WBC (Auto) >50 H (0-5) /hpf Urine RBC (Auto) >20 H (0-2) /hpf U Hyaline Cast (Auto) >20 H (0-2) /lpf U Epithel Cells (Auto) >20 H (0-2) /hpf Urine Bacteria (Auto) 4+ H (None Seen) Amorphous Sediment Present A (None Prsent) Tacrolimus mcg/L SARS-CoV-2, RNA, NAAT NEGATIVE (NEGATIVE) 02/10/24 02/10/24 Range/Units 14:00 13:40 WBC 9.82 (4.8-10.8) K/ul RBC 5.71 (4.70-6.10) M/uL Hgb 16.8 (14.0-18.0) g/dl POC Hgb 17.0 (14.0-18.0) g/dl Hct 52.1 H (42.0-52.0) % POC Hct 50 (42-52) % MCV 91.2 (80.0-100.0) fL MCH 29.4 (25.0-34.0) pg MCHC 32.2 (32.0-36.0) g/dL RDW Std Deviation 42.5 (36.4-46.3) fL RDW Coeff of Reema 12.8 (11.5-14.5) % Plt Count 164 (130-400) K/uL MPV 9.3 L (9.4-12.4) fL Immature Gran % (Auto) 0.4 % Neut % (Auto) 76.4 % Lymph % (Auto) 16.5 % [place] % (Auto) 5.2 % Eos % (Auto) 1.2 % Baso % (Auto) 0.3 % Neut # (Auto) 7.50 H (1.40-6.50) K/uL Lymph # (Auto) 1.62 (1.20-3.40) K/uL [place] # (Auto) 0.51 (0.11-0.59) K/uL Eos # (Auto) 0.12 (0.00-0.50) K/uL Baso # (Auto) 0.03 (0.00-0.20) K/uL Immature Gran # (Auto) 0.04 (0.01-0.20) K/uL VBG pH VBG pCO2 VBG pO2 VBG HCO3 VBG O2 Saturation VBG Base Excess Barometric Pressure POC Sodium 158 H* (135-144) mmol/L Sodium 157 H* (136-145) mmol/L POC Potassium 4.0 (3.3-5.0) mmol/L Potassium 4.1 (3.5-5.1) mmol/L POC Chloride 122 H (101-112) mmol/L Chloride 122 H (98-107) mmol/L Carbon Dioxide 26 (21-32) mmol/L POC Total CO2 23 L (24-31) mmol/L Anion Gap 9 (3-11) POC Anion Gap 18.0 (16-25) mmol/L POC BUN 63 H (7-18) mg/dl BUN 73 H (6-23) mg/dl Creatinine 1.94 H (0.6-1.4) mg/dl POC Creatinine 2.0 H (0.6-1.3) mg/dl Est Cr Clr Drug Dosing 27.9 ml/min eGFR 34.14 BUN/Creatinine Ratio 37.6 H (10-20) Glucose 173 H (70-99(Fasting)) mg/dl POC Glucose (70-99) mg/dl POC Glucose (other) 175 H (70-99) mg/dl Lactate (0.4-2.0) mmol/L Calcium 10.4 H (8.6-10.3) mg/dl POC Ioniz Calcium Pia 1.30 (1.12-1.32) mmol/l Phosphorus (2.5-4.9) mg/dl Magnesium 2.5 H (1.7-2.4) mg/dl Total Bilirubin 1.0 (0.2-1.0) mg/dl AST 16 (13-39) U/L ALT 14 (7-52) U/L Alkaline Phosphatase 59 (34-104) U/L Ammonia (18-72) umol/L Troponin I High Sens 29.0 H (0-20) pg/ml Total Protein 7.3 (6.0-8.3) gm/dl Albumin 4.0 (3.4-5.0) gm/dl Globulin 3.3 (2.5-4.0) gm/dl Albumin/Globulin Ratio 1.2 (0.9-2) TSH 0.413 (0.300-4.500) uIu/ml Urine Color Urine Appearance (Clear) Urine pH (4.5-7.5) Ur Specific [place] (1.000-1.030) Urine Protein (Negative) Urine Glucose (UA) (Negative) Urine Ketones (Negative) Urine Blood (Negative) Urine Nitrite (Negative) Urine Bilirubin (Negative) Urine Urobilinogen (Negative) Ur Leukocyte Esterase (Negative) Urine WBC (Auto) (0-5) /hpf Urine RBC (Auto) (0-2) /hpf U Hyaline Cast (Auto) (0-2) /lpf U Epithel Cells (Auto) (0-2) /hpf Urine Bacteria (Auto) (None Seen) Amorphous Sediment (None Prsent) Tacrolimus mcg/L SARS-CoV-2, RNA, NAAT (NEGATIVE) Diagnostic Findings Chest X-Ray 02/10/24 14:06 EXAM: Radiograph of the Chest 1 View INDICATION: Weakness. TECHNIQUE: Frontal view of the chest. COMPARISON: 06/20/2023 FINDINGS: Lungs and pleural spaces: Stable chronic interstitial scarring. No consolidation or pulmonary edema. No pleural effusion or pneumothorax. Heart: Stable mild cardiomegaly. Mediastinum: Normal contour. Bones/joints: There is a lucency projecting over the posterior left seventh rib which I suspect is artifact from the scapula. Soft tissues: No abnormality noted. No radiopaque foreign body noted. Vasculature: Stable ectatic aorta. Upper abdomen: No abnormality noted. IMPRESSION: 1. No acute cardiopulmonary disease. 2. There is a lucency projecting over the posterior left seventh rib which I suspect is artifact from the scapula. If there is pain referable to this area, dedicated rib series may be of benefit. ACT 112: Negative or not required by law. Electronically signed by Evelyn Vinson 02-10-2024 3:[address] 02/10/24 14:07 EXAM: CT Head Without Intravenous Contrast INDICATION: Altered mental status. Weakness. TECHNIQUE: Axial computed tomography images of the head/brain without intravenous contrast. Sagittal and/or coronal reformats are provided. Sagittal and coronal reformatted images were created and reviewed. This CT exam was performed using one or more of the following dose reduction techniques: automated exposure control, adjustment of the mA and/or kV according to patient size, and/or use of iterative reconstruction technique. COMPARISON: 11/21/2023 and 06/20/2023. FINDINGS: Limitations: None. Brain and extra-axial spaces: There is age appropriate cortical atrophy and chronic ischemic periventricular white matter hypodensity. No acute infarct, hemorrhage or mass noted. Stable approximate 5 mm thickness right hemispheric chronic hygroma (decreased from 8 mm 06/20/2023). An approximate 2-3 mm subacute subdural collection noted at the convexity is stable. No acute hemorrhage. Chronic small vessel ischemic changes and cortical atrophy stable. Bones/joints: No acute changes. Soft tissues: No significant abnormality noted. Vasculature: Dense atherosclerotic calcifications noted. Sinuses: No layering fluid in the visualized portions of the paranasal sinuses. Mastoid air cells: No mastoid effusion. Orbits: No significant abnormality noted. IMPRESSION: 1. Cerebral atrophy. No acute changes. 2. 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 No acute abnormality noted. ACT 112: Negative or not required by law. 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
--- NOTE | 2024-02-15 15:13 | Hospitalist Progress Note ---
Date of Service February 15, 2024 Assessment & Plan (1) Acute hypernatremia: Plan: Presented with acute change in mental status/acute metabolic encephalopathy secondary to UTI and also acute hypernatremia Presented with sodium of 157 and has been receiving intravenous fluid including dextrose 5% since admission Appreciate nephrology input and recommendation Sodium level has been normalized as of 02/14/2024 and the patient seems to be at his baseline Advised to drink more fluid to maintain current sodium level and improve dehydration Has been having cough with any liquid including water Will need to have speech evaluation and possible barium swallow study down the line Hyponatremia has resolved Palliative care encounter Advanced dementia, generalized muscle weakness, recurrent UTI and poor nutritional status due to inability to eat or drink Appreciate palliative care input and recommendations so far I had a discussion with both her sons including one is traveling from [place] today Answered all of their questions and also mentioned that the patient seems to be at his baseline as of today after my evaluation Has had palliative care conference with the sons today againno hospice care right away, continue current management and return to [facility] for continuation of care. He will remain in full code for now and will have outpatient palliative care follow-up Acceptable to have hospice care for worsening of his general condition (2) Acute dehydration: Plan: Presented with acute renal failure likely secondary to dehydration due to poor intake Presenting creatinine was 1.94 and received appropriate treatment since admission Creatinine has been normalized as of today 02/14/24 at 1.23 Advised to drink more fluid otherwise will need to continue free water through mouth and/or some other means We need to have reevaluation by the speech therapy and possible barium swallow done (3) Acute renal failure superimposed on stage 3 chronic kidney disease: Plan: History of end-stage renal disease secondary to polycystic kidney disease status post renal transplant on immunosuppressant with tacrolimus and CellCept Acute kidney failure secondary to dehydration Appreciate nephrology input and recommendation Received intravenous fluid and also has been receiving as of today including dextrose 5% Kidney function has been normalized Has to have more fluid intake to maintain hydration and normal sodium level (4) Acute metabolic encephalopathy: Plan: Seems to be at his baseline (5) Catheter-associated urinary tract infection: Plan: Has been getting recurrent UTIs Complicated by immunosuppressed condition Extensive discussion with the son and the current infection seems to be under control (6) Mixed Alzheimer and vascular dementia: Plan: Has advanced dementia (7) Parkinsonism: (8) History of renal transplant: Plan Notes from prior Hospitalist: Patient remains significantly encephalopathic. Not awake and alert enough to maintain adequate hydration on his own. Extensive review of EMR, patient has known mixed dementia which appears to have progressed over the last few weeks. Hypernatremia dehydration in the setting of dementia is uremic concerning. Suspect patient will not be able to maintain adequate oral intake to prevent the recurrence of his renal failure, dehydration, hypernatremia. Communication with nephrology, confirms poor prognosis of the hypernatremia acute kidney injury in the setting of dementia Phone conversation with the patient's son reviewed my concerns of the patient's progressive dementia and recurrence for this cycle of dehydration and hypernatremia. Son states that the last time he discussed advanced directives with his dad he still wanted full interventions with the exception of hemodialysis. He understands that to maintain adequate nutrition and hydration a feeding tube could be considered. However, son was open to discussing more of a palliative approach and is interested in palliative care perspective. Consult palliative care, Dr. Whitney notified Continue IV hydration while family going through decision making process of goals of care Monitor electrolytes and renal function Oral intake as tolerated pending patient's mental status. 54 minutes spent in evaluation the bedside, reviewing the records, coordinating care, communication with family, communication with medical team and specialists Admission and Anticipated Discharge Date Admission Date: February 10, 2024 Subjective 02/14/2024 The patient was seen and examined in medical floor He has been stable and has been communicating with me today Moving all of his extremities but has generalized weakness Remains pleasantly confused and does not have any acute distress Has been tolerating pured and slippery diet 02/15/2024 Patient was seen and examined in medical floor Patient has been much better and communicating almost normal Denies any significant symptoms for any distress Has been eating more than 50% of his meal Remains pleasantly confused Review of Systems Review of Systems: Unobtainable due to cognitive status Physical Exam Physical Exam: Lying in bed without any acute distress Constitutional: + ill appearing and average body habitus Eyes: PERRL, conjunctivae normal, anicteric sclerae ENMT: external ear and nose normal, oropharynx normal Neck: trachea midline, no thyromegaly Respiratory: no respiratory distress Auscultation: + diminished lung sounds; no crackles Cardiovascular: Rate/Rhythm: regular rate and regular rhythm; not tachycardic Heart Sounds: normal S1 and normal S2; no murmur Extremities: no edema Gastrointestinal (Abdomen): Inspection/Auscultation: normal bowel sounds; abdomen not distended Percussion/Palpation: abdomen soft; abdomen nontender Neurologic: normal touch/pain/proprioception, moves all extremities and + confused ( pleasantly confused) Lymphatic: no cervical or axillary lymphadenopathy Results & Data Results & Data Vital Signs (Past 12 Hours) Vital Signs Temp Pulse Resp BP Pulse Ox O2 Del Method 02/15/24 07:58 36.9 C 76 16 131/82 99 Room Air 02/15/24 07:45 Room Air Laboratory Results Short CBC 02/15/24 Range/Units 05:59 WBC 8.56 (4.8-10.8) K/ul Hgb 13.3 L (14.0-18.0) g/dl Hct 39.7 L (42.0-52.0) % Plt Count 112 L (130-400) K/uL BMP 02/15/24 05:59 Sodium 140 Potassium 3.9 Chloride 111 H Carbon Dioxide 25 BUN 30 H Creatinine 1.16 Glucose 114 H Calcium 8.4 L Medications Administered Current Inpatient Medications Acetaminophen (Acetaminophen 325 Mg Tab) 650 mg PO Q4H PRN PRN Reason: Pain or Fever Stop: 03/11/24 19:00 Bisacodyl (Bisacodyl 10 Mg Supp) 10 mg SC DAILY PRN PRN Reason: 4th day of no BM in AM Stop: 03/11/24 19:00 Brimonidine Tartrate (Brimonidine Tartrate 0.2% 5ml) 1 drops OPB HS [facility] Stop: 03/11/24 20:59 Last Admin: 02/14/24 19:40 Dose: 1 drops Dextrose (Dextrose 50% 50 Ml Syringe) 25 - 50 ml IV UD PRN; Protocol PRN Reason: Hypoglycemia Protocol Stop: 03/12/24 12:03 Docusate Sodium (Docusate Sodium 100 Mg Cap) 100 mg PO Q24H PRN PRN Reason: constipation on day 2 no BM in the AM Stop: 03/11/24 19:00 Glucagon (Glucagon For Inj 1 Mg Vial) 1 mg SQ UD PRN; Protocol PRN Reason: Hypoglycemia Protocol Stop: 03/12/24 12:03 Glucose (Glucose 40% Gel 15 Gm Tube) 15 - 30 gm PO UD PRN; Protocol PRN Reason: Hypoglycemia Protocol Stop: 03/12/24 12:03 Glucose (Glucose 10 Tab/Tube) 4 - 8 tab PO UD PRN; Protocol PRN Reason: Hypoglycemia Protocol Stop: 03/12/24 12:03 Insulin Aspart (Insulin Aspart Per Unit Charge) 0 units SC ACHS [facility] Stop: 03/13/24 20:59 Last Admin: 02/15/24 12:48 Dose: 4 units Magnesium Oxide (Magnesium Oxide 400 Mg Tab) 400 mg PO HS [facility] Stop: 03/11/24 20:59 Last Admin: 02/14/24 19:41 Dose: 400 mg Memantine (Memantine Hcl 10 Mg Tab) 10 mg PO QAM [facility] Stop: 03/12/24 08:59 Last Admin: 02/15/24 08:36 Dose: 10 mg Miscellaneous (Carbohydrates For Hypoglycemia ) 15 - 30 gm PO UD PRN PRN Reason: Hypoglycemia Protocol Stop: 03/12/24 12:03 Ondansetron HCl (Ondansetron Inj 2 Mg/Ml 2 Ml Vial) 4 mg IV Q6H PRN PRN Reason: Nausea Stop: 03/11/24 19:00 Polyethylene Glycol (Polyethylene (Miralax) 17 Gm Pack) 17 gm PO DAILY PRN PRN Reason: Constipation Stop: 03/11/24 19:00 Sertraline HCl (Sertraline Hcl 50 Mg Tablet) 75 mg PO DAILY [facility] Stop: 03/12/24 08:59 Last Admin: 02/15/24 08:36 Dose: 75 mg Tacrolimus (Tacrolimus 1 Mg Cap) 2 mg PO QAM [facility] Stop: 03/12/24 08:59 Last Admin: 02/15/24 08:37 Dose: 2 mg Tacrolimus (Tacrolimus 1 Mg Cap) 1 mg PO [facility] Stop: 03/11/24 20:59 Last Admin: 02/14/24 19:40 Dose: 1 mg
--- NOTE | 2024-02-15 16:31 | Nephrology Progress Note ---
Date of Service February 15, 2024 Assessment & Plan (1) Hypernatremia: Plan: presenting sodium 157 02/09; pt is unable to ask for water or to feed himself he has so far this admission had 1 L NS, 1L D5W and another 500 mL of D5 sodium is 140 today. No need for D5. Patient should be encouraged to drink on his own. Consult nutrition as patient most likely needs thickened liquids. From renal standpoint patient can be discharged back to rehab /[facility] (2) Acute renal failure superimposed on stage 3 chronic kidney disease: Plan: stage 1 nonoliguric TUNG slightly improved from presentation. UA difficult to interpret/chronically inflamed w/ chronic sherwood baseline creatinine 1.1-1.2. presenting creatinine 2 on 02/09 at 1300 >> back to baseline now w/ rehydration > creatinine 1.16 today -daily bmp -strict I/O -encourage po (3) History of renal transplant: Plan: -Resume CellCept. -routine tacro dosing to continue. patient now able to take his tacrolimus Admission and Anticipated Discharge Date Admission Date: February 10, 2024 Subjective seen in follow-up for renal transplant and hypernatremia. Patient is awake today. He denied any pain or discomfort Review of Systems 2 Review of Systems: All other systems were reviewed and negative except as noted in HPI Physical Exam 2 Physical Exam: General exam: Appears comfortable, no acute distress HEENT: Pupils are equal and reactive to light Neck: No JVD, neck is supple trachea is midline Respiratory system: Clear breath sounds bilaterally. Gastrointestinal: Abdomen is soft, non distended, non tender, bowel sounds are present CVS: Regular rate and rhythm. No murmurs, rubs or gallops Musculoskeletal: No joint or muscle tenderness Extremities: Non tender, no edema, peripheral pulses are present Neuro: Oriented, no tremors, no focal neurological deficits Skin: No rashes Results & Data Vital Signs (Past 12 Hours) Vital Signs Temp Pulse Resp BP Pulse Ox O2 Del Method 02/15/24 15:20 36.9 C 79 16 117/71 95 Room Air 02/15/24 07:58 36.9 C 76 16 131/82 99 Room Air 02/15/24 07:45 Room Air Laboratory Results 02/15/24 05:59 02/15/24 05:59 WBC 8.56 RBC 4.45 L MCV 89.2 MCH 29.9 MCHC 33.5 RDW Std Deviation 40.4 RDW Coeff of Reema 12.5 Plt Count 112 L MPV 9.5 Phosphorus 2.6
--- NOTE | 2024-02-16 14:40 | Hospitalist Progress Note ---
Date of Service February 16, 2024 Assessment & Plan (1) Acute hypernatremia: Plan: Presented with acute change in mental status/acute metabolic encephalopathy secondary to UTI and also acute hypernatremia Presented with sodium of 157 and has been receiving intravenous fluid including dextrose 5% since admission Appreciate nephrology input and recommendation Sodium level has been normalized as of 02/14/2024 and the patient seems to be at his baseline Advised to drink more fluid to maintain current sodium level and improve dehydration Has been having cough with any liquid including water Will need to have speech evaluation and possible barium swallow study down the line Hyponatremia has resolved He has been eating and drinking a bit more go liquids make him cough Will need speech to reevaluate and possible barium swallow Palliative care encounter Advanced dementia, generalized muscle weakness, recurrent UTI and poor nutritional status due to inability to eat or drink Appreciate palliative care input and recommendations so far I had a discussion with both her sons including one is traveling from [place] today Answered all of their questions and also mentioned that the patient seems to be at his baseline as of today after my evaluation Has had palliative care conference with the sons today againno hospice care right away, continue current management and return to [facility] for continuation of care. He will remain in full code for now and will have outpatient palliative care follow-up Acceptable to have hospice care for worsening of his general condition Plan to transfer the patient to his previous plan at [facility] when appropriate (2) Acute dehydration: Plan: Presented with acute renal failure likely secondary to dehydration due to poor intake Presenting creatinine was 1.94 and received appropriate treatment since admission Creatinine has been normalized as of today 02/14/24 at 1.23 Advised to drink more fluid otherwise will need to continue free water through mouth and/or some other means We need to have reevaluation by the speech therapy and possible barium swallow done Will need more fluid intake to maintain hydration (3) Acute renal failure superimposed on stage 3 chronic kidney disease: Plan: History of end-stage renal disease secondary to polycystic kidney disease status post renal transplant on immunosuppressant with tacrolimus and CellCept Acute kidney failure secondary to dehydration Appreciate nephrology input and recommendation Received intravenous fluid and also has been receiving as of today including dextrose 5% Kidney function has been normalized Has to have more fluid intake to maintain hydration and normal sodium level Kidney function remains stable will monitor. (4) Acute metabolic encephalopathy: Plan: Seems to be at his baseline (5) Catheter-associated urinary tract infection: Plan: Has been getting recurrent UTIs Complicated by immunosuppressed condition Extensive discussion with the son and the current infection seems to be under control (6) Mixed Alzheimer and vascular dementia: Plan: Has advanced dementia (7) Parkinsonism: (8) History of renal transplant: Plan Notes from prior Hospitalist: Patient remains significantly encephalopathic. Not awake and alert enough to maintain adequate hydration on his own. Extensive review of EMR, patient has known mixed dementia which appears to have progressed over the last few weeks. Hypernatremia dehydration in the setting of dementia is uremic concerning. Suspect patient will not be able to maintain adequate oral intake to prevent the recurrence of his renal failure, dehydration, hypernatremia. Communication with nephrology, confirms poor prognosis of the hypernatremia acute kidney injury in the setting of dementia Phone conversation with the patient's son reviewed my concerns of the patient's progressive dementia and recurrence for this cycle of dehydration and hypernatremia. Son states that the last time he discussed advanced directives with his dad he still wanted full interventions with the exception of he modialysis. He understands that to maintain adequate nutrition and hydration a feeding tube could be considered. However, son was open to discussing more of a palliative approach and is interested in palliative care perspective. Consult palliative care, Dr. Whitney notified Continue IV hydration while family going through decision making process of goals of care Monitor electrolytes and renal function Oral intake as tolerated pending patient's mental status. 54 minutes spent in evaluation the bedside, reviewing the records, coordinating care, communication with family, communication with medical team and specialists Admission and Anticipated Discharge Date Admission Date: February 10, 2024 Subjective 02/14/2024 The patient was seen and examined in medical floor He has been stable and has been communicating with me today Moving all of his extremities but has generalized weakness Remains pleasantly confused and does not have any acute distress Has been tolerating pured and slippery diet 02/15/2024 Patient was seen and examined in medical floor Patient has been much better and communicating almost normal Denies any significant symptoms for any distress Has been eating more than 50% of his meal Remains pleasantly confused 02/16/2024 Patient was seen and examined in medical floor He has been stable and eating more food than 4 Awaiting reevaluation by the speech therapist for possible barium swallow if needed Remains pleasantly confused with history of dementia Does not have any acute distress Review of Systems Review of Systems: Unobtainable due to cognitive status Physical Exam Physical Exam: Lying in bed without any acute distress Constitutional: + ill appearing and average body habitus Eyes: PERRL, conjunctivae normal, anicteric sclerae ENMT: external ear and nose normal, oropharynx normal Neck: trachea midline, no thyromegaly Respiratory: no respiratory distress Auscultation: + diminished lung sounds; no crackles Cardiovascular: Rate/Rhythm: regular rate and regular rhythm; not tachycardic Heart Sounds: normal S1 and normal S2; no murmur Extremities: no edema Gastrointestinal (Abdomen): Inspection/Auscultation: normal bowel sounds; abdomen not distended Percussion/Palpation: abdomen soft; abdomen nontender Musculoskeletal: No acute arthritis involving any of the joint will not see the patient, this Neurologic: normal touch/pain/proprioception, moves all extremities and + confused ( pleasantly confused) Lymphatic: no cervical or axillary lymphadenopathy Results & Data Results & Data Vital Signs (Past 12 Hours) Vital Signs Temp Pulse Pulse Resp BP Pulse Ox O2 Del Method 02/16/24 12:43 36.4 C L 84 14 124/62 92 Room Air 02/16/24 08:00 36.6 C 84 14 124/62 92 Room Air 02/16/24 07:45 Room Air 02/16/24 07:35 36.5 C 73 16 132/76 97 Room Air is a good speech nursing the patient yet
--- NOTE | 2024-02-16 18:21 | Nephrology Progress Note ---
Date of Service February 16, 2024 Assessment & Plan (1) Hypernatremia: Plan: presenting sodium 157 02/09; pt is unable to ask for water or to feed himself he has so far this admission had 1 L NS, 1L D5W and another 500 mL of D5 sodium is 140 today. No need for D5. Patient should be encouraged to drink on his own. Consult nutrition as patient most likely needs thickened liquids. From renal standpoint patient can be discharged back to rehab /detention. Renal will sign off please call if additional questions or concerns (2) Acute renal failure superimposed on stage 3 chronic kidney disease: Plan: stage 1 nonoliguric TUNG slightly improved from presentation. UA difficult to interpret/chronically inflamed w/ chronic sherwood baseline creatinine 1.1-1.2. presenting creatinine 2 on 02/09 at 1300 >> back to baseline now w/ rehydration > creatinine 1.16 -daily bmp -strict I/O -encourage po (3) History of renal transplant: Plan: -Resume CellCept. -routine tacro dosing to continue. patient now able to take his tacrolimus Admission and Anticipated Discharge Date Admission Date: February 10, 2024 Subjective seen for hyponatremia. Patient is eating better now on thickened liquids. No shortness of breath. Review of Systems 2 Review of Systems: All other systems were reviewed and negative except as noted in HPI Physical Exam 2 Physical Exam: General exam: Appears comfortable, no acute distress HEENT: Pupils are equal and reactive to light Neck: No JVD, neck is supple trachea is midline Respiratory system: Clear breath sounds bilaterally. Gastrointestinal: Abdomen is soft, non distended, non tender, bowel sounds are present CVS: Regular rate and rhythm. No murmurs, rubs or gallops Musculoskeletal: No joint or muscle tenderness Extremities: Non tender, no edema, peripheral pulses are present Neuro: Oriented, no tremors, no focal neurological deficits Skin: No rashes Results & Data Vital Signs (Past 12 Hours) Vital Signs Temp Pulse Pulse Resp BP Pulse Ox O2 Del Method 02/16/24 16:00 36.4 C L 80 16 136/70 97 Room Air 02/16/24 12:43 36.4 C L 84 14 124/62 92 Room Air 02/16/24 08:00 36.6 C 84 14 124/62 92 Room Air 02/16/24 07:45 Room Air 02/16/24 07:35 36.5 C 73 16 132/76 97 Room Air Laboratory Results 02/15/24 05:59
[2024-02-17 07:09] LABS: BUN Creatinine Ratio 26.5 (10-20); Calcium 8.6 mg/dl (8.6-10.3); Magnesium 1.9 mg/dl (1.7-2.4); Phosphorus 2.6 mg/dl (2.5-4.9); Potassium 4.2 mmol/L (3.5-5.1)
--- NOTE | 2024-02-17 12:34 | Hospitalist Progress Note ---
Date of Service February 17, 2024 Assessment & Plan (1) Acute hypernatremia: Plan: Presented with acute change in mental status/acute metabolic encephalopathy secondary to UTI and also acute hypernatremia Presented with sodium of 157 and has been receiving intravenous fluid including dextrose 5% since admission Appreciate nephrology input and recommendation Sodium level has been normalized as of 02/14/2024 and the patient seems to be at his baseline Advised to drink more fluid to maintain current sodium level and improve dehydration Has been having cough with any liquid including water Will need to have speech evaluation and possible barium swallow study down the line Hyponatremia has resolved He has been eating and drinking a bit more go liquids make him cough Will need speech to reevaluate and possible barium swallow He has been stable and much improved for the last 2 to 3 days Continue feeding as per speech therapy instruction Likely discharge on Monday if remains stable Palliative care encounter Advanced dementia, generalized muscle weakness, recurrent UTI and poor nutritional status due to inability to eat or drink Appreciate palliative care input and recommendations so far I had a discussion with both her sons including one is traveling from [place] today Answered all of their questions and also mentioned that the patient seems to be at his baseline as of today after my evaluation Has had palliative care conference with the sons today againno hospice care right away, continue current management and return to [facility] for continuation of care. He will remain in full code for now and will have outpatient palliative care follow-up Acceptable to have hospice care for worsening of his general condition Plan to transfer the patient to his previous plan at [facility] when appropriate (2) Acute dehydration: Plan: Presented with acute renal failure likely secondary to dehydration due to poor intake Presenting creatinine was 1.94 and received appropriate treatment since admission Creatinine has been normalized as of today 02/14/24 at 1.23 Advised to drink more fluid otherwise will need to continue free water through mouth and/or some other means We need to have reevaluation by the speech therapy and possible barium swallow done Will need more fluid intake to maintain hydration Strongly advised to increase fluid intake (3) Acute renal failure superimposed on stage 3 chronic kidney disease: Plan: History of end-stage renal disease secondary to polycystic kidney disease status post renal transplant on immunosuppressant with tacrolimus and CellCept Acute kidney failure secondary to dehydration Appreciate nephrology input and recommendation Received intravenous fluid and also has been receiving as of today including dextrose 5% Kidney function has been normalized Has to have more fluid intake to maintain hydration and normal sodium level Kidney function remains stable will monitor. (4) Acute metabolic encephalopathy: Plan: Seems to be at his baseline (5) Catheter-associated urinary tract infection: Plan: Has been getting recurrent UTIs Complicated by immunosuppressed condition Extensive discussion with the son and the current infection seems to be under control (6) Mixed Alzheimer and vascular dementia: Plan: Has advanced dementia (7) Parkinsonism: (8) History of renal transplant: Plan: Has been on Prograf and CellCept suspension is restarted from today Plan Notes from prior Hospitalist: Patient remains significantly encephalopathic. Not awake and alert enough to maintain adequate hydration on his own. Extensive review of EMR, patient has known mixed dementia which appears to have progressed over the last few weeks. Hypernatremia dehydration in the setting of dementia is uremic concerning. Suspect patient will not be able to maintain adequate oral intake to prevent the recurrence of his renal failure, dehydration, hypernatremia. Communication with nephrology, confirms poor prognosis of the hypernatremia acute kidney injury in the setting of dementia Phone conversation with the patient's son reviewed my concerns of the patient's progressive dementia and recurrence for this cycle of dehydration and hypernatre tarah. Son states that the last time he discussed advanced directives with his dad he still wanted full interventions with the exception of hemodialysis. He understands that to maintain adequate nutrition and hydration a feeding tube could be considered. However, son was open to discussing more of a palliative approach and is interested in palliative care perspective. Consult palliative care, Dr. Whitney notified Continue IV hydration while family going through decision making process of goals of care Monitor electrolytes and renal function Oral intake as tolerated pending patient's mental status. 54 minutes spent in evaluation the bedside, reviewing the records, coordinating care, communication with family, communication with medical team and specialists Admission and Anticipated Discharge Date Admission Date: February 10, 2024 Subjective 02/14/2024 The patient was seen and examined in medical floor He has been stable and has been communicating with me today Moving all of his extremities but has generalized weakness Remains pleasantly confused and does not have any acute distress Has been tolerating pured and slippery diet 02/15/2024 Patient was seen and examined in medical floor Patient has been much better and communicating almost normal Denies any significant symptoms for any distress Has been eating more than 50% of his meal Remains pleasantly confused 02/16/2024 Patient was seen and examined in medical floor He has been stable and eating more food than 4 Awaiting reevaluation by the speech therapist for possible barium swallow if needed Remains pleasantly confused with history of dementia Does not have any acute distress 02/17/2024 The patient was seen and examined in medical floor He has been much better for the last 2 or 3 days and has been eating reasonably Does not have any acute distress Review of Systems Review of Systems: Unobtainable due to cognitive status Physical Exam Physical Exam: Lying in bed without any acute distress Constitutional: + ill appearing and average body habitus Eyes: PERRL, conjunctivae normal, anicteric sclerae ENMT: external ear and nose normal, oropharynx normal Neck: trachea midline, no thyromegaly Respiratory: no respiratory distress Auscultation: + diminished lung sounds; no crackles Cardiovascular: Rate/Rhythm: regular rate and regular rhythm; not tachycardic Heart Sounds: normal S1 and normal S2; no murmur Extremities: no edema Gastrointestinal (Abdomen): Inspection/Auscultation: normal bowel sounds; abdomen not distended Percussion/Palpation: abdomen soft; abdomen nontender Neurologic: normal touch/pain/proprioception, moves all extremities and + confused ( pleasantly confused) Lymphatic: no cervical or axillary lymphadenopathy Results & Data Results & Data Vital Signs (Past 12 Hours) Vital Signs Temp Pulse Resp BP Pulse Ox O2 Del Method 02/17/24 07:50 36.6 C 75 17 134/76 97 Room Air Laboratory Results [facility] 02/17/24 06:07 Sodium 143 Potassium 4.2 Chloride 113 H Carbon Dioxide 24 BUN 31 H Creatinine 1.17 Glucose 93 Calcium 8.6 Medications Administered Current Inpatient Medications Acetaminophen (Acetaminophen 325 Mg Tab) 650 mg PO Q4H PRN PRN Reason: Pain or Fever Stop: 03/11/24 19:00 Bisacodyl (Bisacodyl 10 Mg Supp) 10 mg DC DAILY PRN PRN Reason: 4th day of no BM in AM Stop: 03/11/24 19:00 Brimonidine Tartrate (Brimonidine Tartrate 0.2% 5ml) 1 drops OPB HS NAZANIN Stop: 03/11/24 20:59 Last Admin: 02/16/24 21:56 Dose: 1 drops Dextrose (Dextrose 50% 50 Ml Syringe) 25 - 50 ml IV UD PRN; Protocol PRN Reason: Hypoglycemia Protocol Stop: 03/12/24 12:03 Docusate Sodium (Docusate Sodium 100 Mg Cap) 100 mg PO Q24H PRN PRN Reason: constipation on day 2 no BM in the AM Stop: 03/11/24 19:00 Glucagon (Glucagon For Inj 1 Mg Vial) 1 mg SQ UD PRN; Protocol PRN Reason: Hypoglycemia Protocol Stop: 03/12/24 12:03 Glucose (Glucose 40% Gel 15 Gm Tube) 15 - 30 gm PO UD PRN; Protocol PRN Reason: Hypoglycemia Protocol Stop: 03/12/24 12:03 Glucose (Glucose 10 Tab/Tube) 4 - 8 tab PO UD PRN; Protocol PRN Reason: Hypoglycemia Protocol Stop: 03/12/24 12:03 Insulin Aspart (Insulin Aspart Per Unit Charge) 0 units SC [facility] Stop: 03/13/24 20:59 Last Admin: 02/17/24 08:44 Dose: Not Given Magnesium Oxide (Magnesium Oxide 400 Mg Tab) 400 mg PO HS [facility] Stop: 03/11/24 20:59 Last Admin: 02/16/24 21:56 Dose: 400 mg Memantine (Memantine Hcl 10 Mg Tab) 10 mg PO QAM [facility] Stop: 03/12/24 08:59 Last Admin: 02/17/24 08:28 Dose: 10 mg Miscellaneous (Carbohydrates For Hypoglycemia ) 15 - 30 gm PO UD PRN PRN Reason: Hypoglycemia Protocol Stop: 03/12/24 12:03 Ondansetron HCl (Ondansetron Inj 2 Mg/Ml 2 Ml Vial) 4 mg IV Q6H PRN PRN Reason: Nausea Stop: 03/11/24 19:00 Polyethylene Glycol (Polyethylene (Miralax) 17 Gm Pack) 17 gm PO DAILY PRN PRN Reason: Constipation Stop: 03/11/24 19:00 Sertraline HCl (Sertraline Hcl 50 Mg Tablet) 75 mg PO DAILY [facility] Stop: 03/12/24 08:59 Last Admin: 02/17/24 08:28 Dose: 75 mg Tacrolimus (Tacrolimus 1 Mg Cap) 2 mg PO QAM [facility] Stop: 03/12/24 08:59 Last Admin: 02/17/24 08:28 Dose: 2 mg Tacrolimus (Tacrolimus 1 Mg Cap) 1 mg PO HS [facility] Stop: 03/11/24 20:59 Last Admin: 02/16/24 21:56 Dose: 1 mg
[2024-02-17] MEDS: MYCOPHENOLATE SUSP 200 MG/1 ML PO SCH (21:29)
[2024-02-18 07:08] LABS: Basophils # (auto) 0.03 K/uL (0.00-0.20); Basophils % (auto) 0.5 %; Eosinophils # (auto) 0.01 K/uL (0.00-0.50); Eosinophils % (auto) 0.2 %; Hematocrit (blood only) 41.7 % (42.0-52.0); Hemoglobin 13.8 g/dl (14.0-18.0); Immature Granulocytes # (auto) 0.03 K/uL (0.01-0.20); Immature Granulocytes % (auto) 0.5 %; Lymphocytes % (auto) 20.1 %; Mean Corpuscular Hemoglobin 29.8 pg (25.0-34.0); Mean Corpuscular Hgb Conc 33.1 g/dL (32.0-36.0); Mean Corpuscular Volume 90.1 fL (80.0-100.0); Monocytes # (auto) 0.37 K/uL (0.11-0.59); Monocytes % (auto) 5.7 %; Neutrophils # (auto) 4.74 K/uL (1.40-6.50); Platelet Count 148 K/uL (130-400); RDW Coefficient of Variation 12.8 % (11.5-14.5); RDW Standard Deviation 41.2 fL (36.4-46.3); Red Blood Count 4.63 M/uL (4.70-6.10); White Blood Count 6.48 K/ul (4.8-10.8)
[2024-02-18 07:25] LABS: Albumin Globulin Ratio 1.1 (0.9-2); Albumin Level 3.3 gm/dl (3.4-5.0); BUN Creatinine Ratio 27.4 (10-20); Bilirubin,Total 0.7 mg/dl (0.2-1.0); Globulin 2.9 gm/dl (2.5-4.0); Phosphorus 2.9 mg/dl (2.5-4.9); Potassium 4.7 mmol/L (3.5-5.1); Total Protein 6.2 gm/dl (6.0-8.3)
--- NOTE | 2024-02-18 10:09 | Hospitalist Progress Note ---
Date of Service February 18, 2024 Assessment & Plan (1) Acute hypernatremia: (2) Acute dehydration: (3) Acute renal failure superimposed on stage 3 chronic kidney disease: (4) Acute metabolic encephalopathy: (5) Catheter-associated urinary tract infection: (6) Mixed Alzheimer and vascular dementia: (7) Parkinsonism: (8) History of renal transplant: Plan Patient is an 82-year-old male with PMHx significant for history of hypertension, end-stage renal disease secondary to polycystic kidney disease S/P renal transplant on immunosuppression therapy with tacrolimus and CellCept, DUSTY, recurrent UTIs, dementia, 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 Found to be severely hypernatremic. Hypernatremia Dehydration Acute metabolic encephalopathy secondary to hyponatremia, UTI Likely due to poor oral intake Protein calorie malnutrition BMI 19 CT head: "No acute changes, cerebral atrophy. 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 No acute abnormality noted." Presented with sodium 157, has since down trended to normal limits Treated with D5W Nephrology consulted, appreciate recs. Recommended/stated the following: "...Patient should be encouraged to drink on his own. Consult nutrition as patient most likely needs thickened liquids. From renal standpoint patient can be discharged back to rehab /halfway. Renal will sign off please call if additional questions or concerns" Pt with reported cough with any po liquid intake Speech re-consulted for possible video swallow on 02/18/24, appreciate further recs D5W as needed for Na >145 Dietitian consulted, appreciate recs -recommending continue with pureed nectar thick diet -assist with meals by feeding pt and cue liquids For encephalopathy, delirium precautions. Frequent reorientation, avoid sedating medications as able. UTI treatment as below. Continue to monitor CAUTI Complicated urinary tract infection H/O urinary retention S/P sherwood H/O recurrent UTIs Blood, urine cultures from admission with NGTD Was previously treated with Cefepime Repeat urine Cx from 02/16 growing Enterococcus species Started on IV Ampicillin, transition to po amoxicillin on discharge Acute kidney injury H/O End-stage renal disease secondary to polycystic kidney disease S/P renal transplant Continue immunosuppression therapy with tacrolimus and CellCept at this time Creatinine 1.9 on admission, has since downtrended to normal limits after fluid hydration Checked tacrolimus levels, was therapeutic Monitor renal function closely Avoid nephrotoxic agents as able Nephrology consulted, advised the following: -encourage po intake Continue to monitor TUNG currently resolved Mild troponin elevation Likely secondary to TUNG Denies any chest pain EKG showed no signs of acute ischemia troponins downtrended Mild hypercalcemia Secondary to dehydration Hold calcium supplements Monitor calcium levels Improved Hypermagnesemia hx of hypomagnesemia Mag of 2.5 on admission, held home supplements IV hydration Currently resolved, supplements restarted Other chronic conditions: Dementia 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 Parkinson's disease Depression Continue home medications as able Diet: DMII, mildly thick, pureed DVT Px:SCDs for now given history of subdural hematoma Dispo: PT/OT recommending SNF, pt is a bed hold at [facility], [facility] d/c once medically stable Admission and Anticipated Discharge Date Admission Date: February 10, 2024 Subjective pt was seen in the AM Verbally responsive though at times unable to understand what he is saying Call placed to son Enrique at about 5PM advising of need to start IV Ampicllin for urine Cx currently growing Enterococcus species Son asking if it will delay discharge- advised likely not as pt can be transitioned to po Agreeable Review of Systems Review of Systems: All systems reviewed & are unremarkable except as noted in Subjective Physical Exam Physical Exam: General: Alert. No acute distress Psych: mood and affect difficult to determine Neuro: alert but not oriented, speech sometimes not intelligible HEENT: NC/AT CV: RRR Resp: no increased effort of breathing Abdomen: Soft, nontender Extremities: waffle boots on lower extremities bilaterally. Results & Data Results & Data Vital Signs (Past 12 Hours) Vital Signs Temp Pulse Resp BP Pulse Ox O2 Del Method 02/18/24 07:42 36.9 C 71 16 161/75 H 97 Room Air
[2024-02-18] MEDS ORDERED: AMPICILLIN 250 MG in SODIUM CHLORIDE 0.9% 50 ML IV SCH (17:00)
[2024-02-18] MEDS: AMPICILLIN 2,000 MG in SODIUM CHLOR 0.9% MINI-B 100 ML IV SCH (17:52)
[2024-02-19 07:58] LABS: Basophils # (auto) 0.01 K/uL (0.00-0.20); Basophils % (auto) 0.1 %; Eosinophils # (auto) 0.01 K/uL (0.00-0.50); Eosinophils % (auto) 0.1 %; Hematocrit (blood only) 41.6 % (42.0-52.0); Hemoglobin 13.6 g/dl (14.0-18.0); Immature Granulocytes # (auto) 0.03 K/uL (0.01-0.20); Immature Granulocytes % (auto) 0.4 %; Lymphocytes # (auto) 1.21 K/uL (1.20-3.40); Mean Corpuscular Hemoglobin 29.3 pg (25.0-34.0); Mean Corpuscular Hgb Conc 32.7 g/dL (32.0-36.0); Mean Corpuscular Volume 89.7 fL (80.0-100.0); Monocytes # (auto) 0.37 K/uL (0.11-0.59); Monocytes % (auto) 5.5 %; Neutrophils # (auto) 5.09 K/uL (1.40-6.50); Neutrophils % (auto) 75.9 %; Platelet Count 150 K/uL (130-400); RDW Standard Deviation 41.5 fL (36.4-46.3); Red Blood Count 4.64 M/uL (4.70-6.10); White Blood Count 6.72 K/ul (4.8-10.8)
[2024-02-19 08:17] LABS: Albumin Globulin Ratio 1.1 (0.9-2); Albumin Level 3.4 gm/dl (3.4-5.0); BUN Creatinine Ratio 26.1 (10-20); Bilirubin,Total 0.9 mg/dl (0.2-1.0); Calcium 9.4 mg/dl (8.6-10.3); Creatinine Clr Calc Pharmacy 45.7 ml/min; Phosphorus 2.9 mg/dl (2.5-4.9); Potassium 4.9 mmol/L (3.5-5.1); Total Protein 6.4 gm/dl (6.0-8.3)
[2024-02-19] MEDS: DEXTROSE 5% 1,000 ML IV SCH (08:54)
--- NOTE | 2024-02-19 15:03 | Hospitalist Progress Note ---
Date of Service February 19, 2024 Assessment & Plan (1) Acute hypernatremia: (2) Acute dehydration: (3) Acute renal failure superimposed on stage 3 chronic kidney disease: (4) Acute metabolic encephalopathy: (5) Catheter-associated urinary tract infection: (6) Mixed Alzheimer and vascular dementia: (7) Parkinsonism: (8) History of renal transplant: Plan Patient is an 82-year-old male with PMHx significant for history of hypertension, end-stage renal disease secondary to polycystic kidney disease S/P renal transplant on immunosuppression therapy with tacrolimus and CellCept, DUSTY, recurrent UTIs, dementia, 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 Found to be severely hypernatremic. Hypernatremia Dehydration Acute metabolic encephalopathy secondary to hyponatremia, UTI Likely due to poor oral intake Protein calorie malnutrition BMI 19 CT head: "No acute changes, cerebral atrophy. 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 No acute abnormality noted." Presented with sodium 157, has since down trended to normal limits Treated with D5W Nephrology consulted, appreciate recs. Recommended/stated the following: "...Patient should be encouraged to drink on his own. Consult nutrition as patient most likely needs thickened liquids. From renal standpoint patient can be discharged back to rehab /snf. Renal will sign off please call if additional questions or concerns" Pt with reported cough with any po liquid intake Speech re-consulted for possible video swallow on 02/18/24, appreciate further recs -FLOUR WORKER concerned about pt's mental status to complete a video swallow D5W as needed for Na >145, one more bag needed on 02/18 for sodium of 146 Dietitian consulted, appreciate recs -recommending continue with pureed nectar thick diet -assist with meals by feeding pt and cue liquids For encephalopathy, delirium precautions. Frequent reorientation, avoid sedating medications as able. UTI treatment as below. Continue to monitor CAUTI Complicated urinary tract infection H/O urinary retention S/P sherwood H/O recurrent UTIs Blood, urine cultures from admission with NGTD Was previously treated with Cefepime Repeat urine Cx from 02/16 growing Enterococcus species Started on IV Ampicillin before cultures were finalized -Cx noting resistance to IV ampicillin Pt started on IV Linezolid on 02/19/24- can transition to po for discharge Acute kidney injury H/O End-stage renal disease secondary to polycystic kidney disease S/P renal transplant Continue immunosuppression therapy with tacrolimus and CellCept at this time Creatinine 1.9 on admission, has since downtrended to normal limits after fluid hydration Checked tacrolimus levels, was therapeutic Monitor renal function closely Avoid nephrotoxic agents as able Nephrology consulted, advised the following: -encourage po intake Continue to monitor TUNG currently resolved Mild troponin elevation Likely secondary to TUNG Denies any chest pain EKG showed no signs of acute ischemia troponins downtrended Mild hypercalcemia Secondary to dehydration Hold calcium supplements Monitor calcium levels Improved Hypermagnesemia hx of hypomagnesemia Mag of 2.5 on admission, held home supplements IV hydration Currently resolved, supplements restarted Other chronic conditions: Dementia 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 Parkinson's disease Depression Continue home medications as able Diet: DMII, mildly thick, pureed DVT Px:SCDs for now given history of subdural hematoma Dispo: PT/OT recommending SNF, pt is a bed hold at [facility] d/c once medically stable Admission and Anticipated Discharge Date Admission Date: February 10, 2024 Subjective pt was seen in the AM. Was being fed by nursing staff responsive this AM Call placed to son Enrique providing update at about 4:45pm Review of Systems Review of Systems: All systems reviewed & are unremarkable except as noted in Subjective Physical Exam Physical Exam: General: Alert. No acute distress Psych: mood and affect difficult to determine Neuro: alert but not oriented, speech sometimes not intelligible HEENT: NC/AT CV: RRR Resp: no increased effort of breathing Abdomen: Soft, nontender Extremities: waffle boots on lower extremities bilaterally. Results & Data Results & Data Vital Signs (Past 12 Hours) Vital Signs Temp Pulse Resp BP Pulse Ox O2 Del Method 02/19/24 08:09 36.2 C L 68 18 177/94 H 95 Room Air
[2024-02-19] MEDS: LINEZOLID 600 MG/300 ML BAG IV SCH (17:33)
[2024-02-20 07:25] LABS: Basophils # (auto) 0.02 K/uL (0.00-0.20); Basophils % (auto) 0.3 %; Eosinophils # (auto) 0.01 K/uL (0.00-0.50); Eosinophils % (auto) 0.1 %; Hematocrit (blood only) 39.6 % (42.0-52.0); Hemoglobin 13.4 g/dl (14.0-18.0); Immature Granulocytes # (auto) 0.02 K/uL (0.01-0.20); Immature Granulocytes % (auto) 0.3 %; Lymphocytes # (auto) 1.27 K/uL (1.20-3.40); Lymphocytes % (auto) 18.1 %; Mean Corpuscular Hemoglobin 29.9 pg (25.0-34.0); Mean Corpuscular Hgb Conc 33.8 g/dL (32.0-36.0); Mean Corpuscular Volume 88.4 fL (80.0-100.0); Mean Platelet Volume 8.9 fL (9.4-12.4); Monocytes # (auto) 0.32 K/uL (0.11-0.59); Monocytes % (auto) 4.6 %; Neutrophils # (auto) 5.39 K/uL (1.40-6.50); Neutrophils % (auto) 76.6 %; Platelet Count 141 K/uL (130-400); RDW Standard Deviation 41.4 fL (36.4-46.3); Red Blood Count 4.48 M/uL (4.70-6.10); White Blood Count 7.03 K/ul (4.8-10.8)
[2024-02-20 07:39] LABS: Albumin Globulin Ratio 1.2 (0.9-2); Albumin Level 3.2 gm/dl (3.4-5.0); BUN Creatinine Ratio 22.9 (10-20); Bilirubin,Total 0.9 mg/dl (0.2-1.0); Calcium 8.8 mg/dl (8.6-10.3); Creatinine Clr Calc Pharmacy 48.3 ml/min; Globulin 2.7 gm/dl (2.5-4.0); Magnesium 1.8 mg/dl (1.7-2.4); Phosphorus 2.4 mg/dl (2.5-4.9); Potassium 3.8 mmol/L (3.5-5.1); Total Protein 5.9 gm/dl (6.0-8.3)
--- NOTE | 2024-02-20 09:21 | Nephrology Progress Note ---
Date of Service February 20, 2024 Assessment & Plan Admission and Anticipated Discharge Date Admission Date: February 10, 2024 Subjective Assessment & Plan (1) Hypernatremia: Plan: presenting sodium 157 02/09; pt is unable to ask for water or to feed himself he has so far this admission had 1 L NS, 1L D5W and another 500 mL of D5 sodium is normal today. No need for D5. Patient should be encouraged to drink on his own. From renal standpoint patient can be discharged back to rehab [facility]. Renal will sign off please call if additional questions or concerns (2) Acute renal failure superimposed on stage 3 chronic kidney disease: Plan: stage 1 nonoliguric TUNG slightly improved from presentation. UA difficult to interpret/chronically inflamed w/ chronic sherwood baseline creatinine 1.1-1.2. presenting creatinine 2 on 02/09 at 1300 >> back to baseline now w/ rehydration > creatinine normal -daily bmp -strict I/O -encourage po (3) History of renal transplant: Plan: -Resume CellCept. -routine tacro dosing to continue. patient now able to take his tacrolimus Subjective seen for hypernatremia. Dementia +++ No shortness of breath. Review of Systems Review of Systems: All other systems were reviewed and negative except as noted in HPI Physical Exam Physical Exam: General exam: Appears comfortable, no acute distress HEENT: Pupils are equal and reactive to light Neck: No JVD, neck is supple trachea is midline Respiratory system: Clear breath sounds bilaterally. Gastrointestinal: Abdomen is soft, non distended, non tender, bowel sounds are present CVS: Regular rate and rhythm. No murmurs, rubs or gallops Musculoskeletal: No joint or muscle tenderness Extremities: Non tender, no edema, peripheral pulses are present Neuro: Oriented, no tremors, no focal neurological deficits Skin: No rashes Results & Data Vital Signs (Past 12 Hours) Vital Signs Temp Pulse Resp BP Pulse Ox O2 Del Method 02/20/24 09:01 36.6 C 74 16 164/69 H 98 Room Air
--- NOTE | 2024-02-20 15:47 | Hospitalist Progress Note ---
Date of Service February 20, 2024 Assessment & Plan (1) Acute hypernatremia: (2) Acute dehydration: (3) Acute renal failure superimposed on stage 3 chronic kidney disease: (4) Acute metabolic encephalopathy: (5) Catheter-associated urinary tract infection: (6) Mixed Alzheimer and vascular dementia: (7) Parkinsonism: (8) History of renal transplant: Plan Patient is an 82-year-old male with PMHx significant for history of hypertension, end-stage renal disease secondary to polycystic kidney disease S/P renal transplant on immunosuppression therapy with tacrolimus and CellCept, DUSTY, recurrent UTIs, dementia, 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 Found to be severely hypernatremic. Hypernatremia Dehydration Acute metabolic encephalopathy secondary to hyponatremia, UTI Likely due to poor oral intake Protein calorie malnutrition BMI 19 CT head: "No acute changes, cerebral atrophy. 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 No acute abnormality noted." Presented with sodium 157, has since down trended to normal limits Treated with D5W Nephrology consulted, appreciate recs. Recommended/stated the following: "...Patient should be encouraged to drink on his own. Consult nutrition as patient most likely needs thickened liquids. From renal standpoint patient can be discharged back to rehab /fpc. Renal will sign off please call if additional questions or concerns" Pt with reported cough with any po liquid intake Speech re-consulted for possible video swallow on 02/18/24, appreciate further recs -SETTLEMENT PROCESSOR concerned about pt's mental status to complete a video swallow D5W as needed for Na >145, one more bag needed on 02/18 for sodium of 146 Dietitian consulted, appreciate recs -recommending continue with pureed nectar thick diet -assist with meals by feeding pt and cue liquids For encephalopathy, delirium precautions. Frequent reorientation, avoid sedating medications as able. UTI treatment as below. Sodium level remains stable but fluid intake has been limited He will soon be dehydrated and will be back to hospital sooner if discharged to [facility] today CAUTI Complicated urinary tract infection H/O urinary retention S/P sherwood H/O recurrent UTIs Blood, urine cultures from admission with NGTD Was previously treated with Cefepime Repeat urine Cx from 02/16 growing Enterococcus species Started on IV Ampicillin before cultures were finalized -Cx noting resistance to IV ampicillin Pt started on IV Linezolid on 02/19/24- can transition to po for discharge Will continue with intravenous linezolid for now and change Sherwood catheter if it is still Acute kidney injury H/O End-stage renal disease secondary to polycystic kidney disease S/P renal transplant Continue immunosuppression therapy with tacrolimus and CellCept at this time Creatinine 1.9 on admission, has since downtrended to normal limits after fluid hydration Checked tacrolimus levels, was therapeutic Monitor renal function closely Avoid nephrotoxic agents as able Nephrology consulted, advised the following: -encourage po intake Continue to monitor TUNG currently resolved Mild troponin elevation Likely secondary to TUNG Denies any chest pain EKG showed no signs of acute ischemia troponins downtrended Mild hypercalcemia Secondary to dehydration Hold calcium supplements Monitor calcium levels Improved Hypermagnesemia hx of hypomagnesemia Mag of 2.5 on admission, held home supplements IV hydration Currently resolved, supplements restarted Other chronic conditions: Dementia 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 Parkinson's disease Depression Continue home medications as able Diet: DMII, mildly thick, pureed DVT Px:SCDs for now given history of subdural hematoma Dispo: PT/OT recommending SNF, pt is a bed hold at [facility] d/c once medically stable Awaiting further evaluation by the palliative Admission and Anticipated Discharge Date Admission Date: February 10, 2024 Subjective 02/14/2024 The patient was seen and examined in medical floor He has been stable and has been communicating with me today Moving all of his extremities but has generalized weakness Remains pleasantly confused and does not have any acute distress Has been tolerating pured and slippery diet 02/15/2024 Patient was seen and examined in medical floor Patient has been much better and communicating almost normal Denies any significant symptoms for any distress Has been eating more than 50% of his meal Remains pleasantly confused 02/16/2024 Patient was seen and examined in medical floor He has been stable and eating more food than 4 Awaiting reevaluation by the speech therapist for possible barium swallow if needed Remains pleasantly confused with history of dementia Does not have any acute distress 02/17/2024 The patient was seen and examined in medical floor He has been much better for the last 2 or 3 days and has been eating reasonably Does not have any acute distress 02/20/2024 The patient was seen and examined in medical floor He has been a little down today and has not been eating or drinking enough Remains weak and lethargic but does not have any acute distress Not safe to be transferred to [facility] Review of Systems Review of Systems: Unobtainable due to cognitive status Physical Exam Physical Exam: Lying in bed without any acute distress and looks very lethargic Constitutional: + ill appearing and average body habitus Eyes: PERRL, conjunctivae normal, anicteric sclerae ENMT: external ear and nose normal, oropharynx normal Neck: trachea midline, no thyromegaly Respiratory: no respiratory distress Auscultation: + diminished lung sounds; no crackles Cardiovascular: Rate/Rhythm: regular rate and regular rhythm; not tachycardic Heart Sounds: normal S1 and normal S2; no murmur Extremities: no edema Gastrointestinal (Abdomen): Inspection/Auscultation: normal bowel sounds; abdomen not distended Percussion/Palpation: abdomen soft; abdomen nontender Neurologic: normal touch/pain/proprioception, moves all extremities and + confused ( pleasantly confused) Not been communicating well. Not like that of 2 or 3 days back Lymphatic: no cervical or axillary lymphadenopathy Results & Data Results & Data Vital Signs (Past 12 Hours) Vital Signs Temp Pulse Resp BP Pulse Ox O2 Del Method 02/20/24 15:17 36.2 C L 73 16 155/79 H 98 Room Air 02/20/24 09:01 36.6 C 74 16 164/69 H 98 Room Air 02/20/24 08:15 Room Air Laboratory Results Short CBC 02/20/24 Range/Units 07:00 WBC 7.03 (4.8-10.8) K/ul Hgb 13.4 L (14.0-18.0) g/dl Hct 39.6 L (42.0-52.0) % Plt Count 141 (130-400) K/uL BMP 02/20/24 07:00 Sodium 143 Potassium 3.8 D Chloride 113 H Carbon Dioxide 26 BUN 25 H Creatinine 1.09 Glucose 128 H Calcium 8.8 Liver Function 02/20/24 Range/Units 07:00 Total Bilirubin 0.9 (0.2-1.0) mg/dl AST 13 (13-39) U/L ALT 10 (7-52) U/L Alkaline Phosphatase 57 (34-104) U/L Albumin 3.2 L (3.4-5.0) gm/dl Medications Administered Current Inpatient Medications Acetaminophen (Acetaminophen 325 Mg Tab) 650 mg PO Q4H PRN PRN Reason: Pain or Fever Stop: 03/11/24 19:00 Bisacodyl (Bisacodyl 10 Mg Supp) 10 mg [facility] DAILY PRN PRN Reason: 4th day of no BM in AM Stop: 03/11/24 19:00 Brimonidine Tartrate (Brimonidine Tartrate 0.2% 5ml) 1 drops [facility] Stop: 03/11/24 20:59 Last Admin: 02/19/24 21:32 Dose: 1 drops Dextrose (Dextrose 50% 50 Ml Syringe) 25 - 50 ml IV UD PRN; Protocol PRN Reason: Hypoglycemia Protocol Stop: 03/12/24 12:03 Docusate Sodium (Docusate Sodium 100 Mg Cap) 100 mg PO Q24H PRN PRN Reason: constipation on day 2 no BM in the AM Stop: 03/11/24 19:00 Glucagon (Glucagon For Inj 1 Mg Vial) 1 mg SQ UD PRN; Protocol PRN Reason: Hypoglycemia Protocol Stop: 03/12/24 12:03 Glucose (Glucose 40% Gel 15 Gm Tube) 15 - 30 gm PO UD PRN; Protocol PRN Reason: Hypoglycemia Protocol Stop: 03/12/24 12:03 Glucose (Glucose 10 Tab/Tube) 4 - 8 tab PO UD PRN; Protocol PRN Reason: Hypoglycemia Protocol Stop: 03/12/24 12:03 Linezolid (Zyvox) 600 mg in 300 mls @ 300 mls/hr IV Q12H [facility] Stop: 02/29/24 15:14 Last Admin: 02/20/24 15:13 Dose: 300 mls/hr Insulin Aspart (Insulin Aspart Per Unit Charge) 0 units SC [facility] Stop: 03/13/24 20:59 Last Admin: 02/20/24 12:47 Dose: Not Given Magnesium Oxide (Magnesium Oxide 400 Mg Tab) 400 mg PO HS [facility] Stop: 03/11/24 20:59 Last Admin: 02/19/24 21:33 Dose: 400 mg Memantine (Memantine Hcl 10 Mg Tab) 10 mg PO QAM [facility] Stop: 03/12/24 08:59 Last Admin: 02/20/24 09:10 Dose: 10 mg Miscellaneous (Carbohydrates For Hypoglycemia ) 15 - 30 gm PO UD PRN PRN Reason: Hypoglycemia Protocol Stop: 03/12/24 12:03 Mycophenolate Mofetil (Mycophenolate Susp 200 Mg/1 Ml) 250 mg PO BID [facility] Stop: 03/18/24 20:59 Last Admin: 02/20/24 09:12 Dose: 250 mg Ondansetron HCl (Ondansetron Inj 2 Mg/Ml 2 Ml Vial) 4 mg IV Q6H PRN PRN Reason: Nausea Stop: 03/11/24 19:00 Polyethylene Glycol (Polyethylene (Miralax) 17 Gm Pack) 17 gm PO DAILY PRN PRN Reason: Constipation Stop: 03/11/24 19:00 Sertraline HCl (Sertraline Hcl 50 Mg Tablet) 75 mg PO DAILY [facility] Stop: 03/12/24 08:59 Last Admin: 02/20/24 09:10 Dose: 75 mg Tacrolimus (Tacrolimus 1 Mg Cap) 2 mg PO QAM [facility] Stop: 03/12/24 08:59 Last Admin: 02/20/24 09:57 Dose: 2 mg Tacrolimus (Tacrolimus 1 Mg Cap) 1 mg PO HS [facility] Stop: 03/11/24 20:59 Last Admin: 02/19/24 21:33 Dose: 1 mg
--- NOTE | 2024-02-21 13:05 | Hospitalist Progress Note ---
Date of Service February 21, 2024 Assessment & Plan (1) Acute hypernatremia: (2) Acute dehydration: (3) Acute renal failure superimposed on stage 3 chronic kidney disease: (4) Acute metabolic encephalopathy: (5) Catheter-associated urinary tract infection: (6) Mixed Alzheimer and vascular dementia: (7) Parkinsonism: (8) History of renal transplant: Plan Patient is an 82-year-old male with PMHx significant for history of hypertension, end-stage renal disease secondary to polycystic kidney disease S/P renal transplant on immunosuppression therapy with tacrolimus and CellCept, DUSTY, recurrent UTIs, dementia, 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 Found to be severely hypernatremic. Hypernatremia Dehydration Acute metabolic encephalopathy secondary to hyponatremia, UTI Likely due to poor oral intake Protein calorie malnutrition BMI 19 CT head: "No acute changes, cerebral atrophy. 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 No acute abnormality noted." Presented with sodium 157, has since down trended to normal limits Treated with D5W Nephrology consulted, appreciate recs. Recommended/stated the following: "...Patient should be encouraged to drink on his own. Consult nutrition as patient most likely needs thickened liquids. From renal standpoint patient can be discharged back to rehab /correction. Renal will sign off please call if additional questions or concerns" Pt with reported cough with any po liquid intake Speech re-consulted for possible video swallow on 02/18/24, appreciate further recs -GENERAL ROAD SUPERVISOR concerned about pt's mental status to complete a video swallow D5W as needed for Na >145, one more bag needed on 02/18 for sodium of 146 Dietitian consulted, appreciate recs -recommending continue with pureed nectar thick diet -assist with meals by feeding pt and cue liquids For encephalopathy, delirium precautions. Frequent reorientation, avoid sedating medications as able. UTI treatment as below. Sodium level remains stable but fluid intake has been limited He will soon be dehydrated and will be back to hospital sooner if discharged to [facility] He remains stable but a little bit down today he has not been cooperating with eating and not been able to fed Will check her labs tomorrow and discussed with the sons about this deterioration Palliative care has been trying to reconnect with the son's CAUTI Complicated urinary tract infection H/O urinary retention S/P sherwood H/O recurrent UTIs Blood, urine cultures from admission with NGTD Was previously treated with Cefepime Repeat urine Cx from 02/16 growing Enterococcus species Started on IV Ampicillin before cultures were finalized -Cx noting resistance to IV ampicillin Pt started on IV Linezolid on 02/19/24- can transition to po for discharge Will continue with intravenous linezolid for now and change Sherwood catheter if it is still Denies any fever and/or chills and urine looks clear Acute kidney injury H/O End-stage renal disease secondary to polycystic kidney disease S/P renal transplant Continue immunosuppression therapy with tacrolimus and CellCept at this time Creatinine 1.9 on admission, has since downtrended to normal limits after fluid hydration Checked tacrolimus levels, was therapeutic Monitor renal function closely Avoid nephrotoxic agents as able Nephrology consulted, advised the following: -encourage po intake Continue to monitor TUNG currently resolved Mild troponin elevation Likely secondary to TUNG Denies any chest pain EKG showed no signs of acute ischemia troponins downtrended Mild hypercalcemia Secondary to dehydration Hold calcium supplements Monitor calcium levels Improved Hypermagnesemia hx of hypomagnesemia Mag of 2.5 on admission, held home supplements IV hydration Currently resolved, supplements restarted Other chronic conditions: Dementia 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 Parkinson's disease Depression Continue home medications as able Diet: DMII, mildly thick, pureed DVT Px:SCDs for now given history of subdural hematoma Dispo: PT/OT recommending SNF, pt is a bed hold at [facility] d/ once medically stable Awaiting further evaluation by the palliative Admission and Anticipated Discharge Date Admission Date: February 10, 2024 Subjective 02/14/2024 The patient was seen and examined in medical floor He has been stable and has been communicating with me today Moving all of his extremities but has generalized weakness Remains pleasantly confused and does not have any acute distress Has been tolerating pured and slippery diet 02/15/2024 Patient was seen and examined in medical floor Patient has been much better and communicating almost normal Denies any significant symptoms for any distress Has been eating more than 50% of his meal Remains pleasantly confused 02/16/2024 Patient was seen and examined in medical floor He has been stable and eating more food than 4 Awaiting reevaluation by the speech therapist for possible barium swallow if needed Remains pleasantly confused with history of dementia Does not have any acute distress 02/17/2024 The patient was seen and examined in medical floor He has been much better for the last 2 or 3 days and has been eating reasonably Does not have any acute distress 02/20/2024 The patient was seen and examined in medical floor He has been a little down today and has not been eating or drinking enough Remains weak and lethargic but does not have any acute distress Not safe to be transferred to [facility] today 02/21/2024 The patient was seen and examined in medical floor He is a little worse today and has not been eating or drinking anything Asking question he denies to have any symptoms Generally weak but has been moving extremities on asking Review of Systems Review of Systems: Unobtainable due to cognitive status Physical Exam Physical Exam: Lying in bed without any acute distress and looks very lethargic Constitutional: + ill appearing and average body habitus Eyes: PERRL, conjunctivae normal, anicteric sclerae ENMT: external ear and nose normal, oropharynx normal Neck: trachea midline, no thyromegaly Respiratory: no respiratory distress Auscultation: + diminished lung sounds; no crackles Cardiovascular: Rate/Rhythm: regular rate and regular rhythm; not tachycardic Heart Sounds: normal S1 and normal S2; no murmur Extremities: no edema Gastrointestinal (Abdomen): Inspection/Auscultation: normal bowel sounds; abdomen not distended Percussion/Palpation: abdomen soft; abdomen nontender Musculoskeletal: No acute arthritis involving any of the joints Neurologic: normal touch/pain/proprioception, moves all extremities and + confused ( pleasantly confused) Lymphatic: no cervical or axillary lymphadenopathy Results & Data Results & Data Vital Signs (Past 12 Hours) Vital Signs Temp Pulse Resp BP Pulse Ox O2 Del Method 02/21/24 07:21 36.8 C 74 16 126/66 100 Room Air Medications Administered Current Inpatient Medications Acetaminophen (Acetaminophen 325 Mg Tab) 650 mg PO Q4H PRN PRN Reason: Pain or Fever Stop: 03/11/24 19:00 Bisacodyl (Bisacodyl 10 Mg Supp) 10 mg [place] DAILY PRN PRN Reason: 4th day of no BM in AM Stop: 03/11/24 19:00 Brimonidine Tartrate (Brimonidine Tartrate 0.2% 5ml) 1 drops OPB HS [facility] Stop: 03/11/24 20:59 Last Admin: 02/20/24 20:26 Dose: 1 drops Dextrose (Dextrose 50% 50 Ml Syringe) 25 - 50 ml IV UD PRN; Protocol PRN Reason: Hypoglycemia Protocol Stop: 03/12/24 12:03 Docusate Sodium (Docusate Sodium 100 Mg Cap) 100 mg PO Q24H PRN PRN Reason: constipation on day 2 no BM in the AM Stop: 03/11/24 19:00 Glucagon (Glucagon For Inj 1 Mg Vial) 1 mg SQ UD PRN; Protocol PRN Reason: Hypoglycemia Protocol Stop: 03/12/24 12:03 Glucose (Glucose 40% Gel 15 Gm Tube) 15 - 30 gm PO UD PRN; Protocol PRN Reason: Hypoglycemia Protocol Stop: 03/12/24 12:03 Glucose (Glucose 10 Tab/Tube) 4 - 8 tab PO UD PRN; Protocol PRN Reason: Hypoglycemia Protocol Stop: 03/12/24 12:03 Linezolid (Zyvox) 600 mg in 300 mls @ 300 mls/hr IV Q12H [facility] Stop: 02/29/24 15:14 Last Infusion: 02/21/24 06:04 Dose: Infused Insulin Aspart (Insulin Aspart Per Unit Charge) 0 units SC ACHS [facility] Stop: 03/13/24 20:59 Last Admin: 02/21/24 09:30 Dose: Not Given Magnesium Oxide (Magnesium Oxide 400 Mg Tab) 400 mg PO HS [facility] Stop: 03/11/24 20:59 Last Admin: 02/20/24 20:25 Dose: 400 mg Memantine (Memantine Hcl 10 Mg Tab) 10 mg PO QAM [facility] Stop: 03/12/24 08:59 Last Admin: 02/21/24 08:06 Dose: 10 mg Miscellaneous (Carbohydrates For Hypoglycemia ) 15 - 30 gm PO UD PRN PRN Reason: Hypoglycemia Protocol Stop: 03/12/24 12:03 Mycophenolate Mofetil (Mycophenolate Susp 200 Mg/1 Ml) 250 mg PO BID [facility] Stop: 03/18/24 20:59 Last Admin: 02/21/24 08:06 Dose: 250 mg Ondansetron HCl (Ondansetron Inj 2 Mg/Ml 2 Ml Vial) 4 mg IV Q6H PRN PRN Reason: Nausea Stop: 03/11/24 19:00 Polyethylene Glycol (Polyethylene (Miralax) 17 Gm Pack) 17 gm PO DAILY PRN PRN Reason: Constipation Stop: 03/11/24 19:00 Sertraline HCl (Sertraline Hcl 50 Mg Tablet) 75 mg PO DAILY [facility] Stop: 03/12/24 08:59 Last Admin: 02/21/24 08:06 Dose: 75 mg Tacrolimus (Tacrolimus 1 Mg Cap) 2 mg PO QAM [facility] Stop: 03/12/24 08:59 Last Admin: 02/21/24 08:07 Dose: 2 mg Tacrolimus (Tacrolimus 1 Mg Cap) 1 mg PO HS [facility] Stop: 03/11/24 20:59 Last Admin: 02/20/24 20:25 Dose: 1 mg
[2024-02-22 07:35] LABS: Basophils # (auto) 0.03 K/uL (0.00-0.20); Basophils % (auto) 0.5 %; Eosinophils # (auto) 0.01 K/uL (0.00-0.50); Eosinophils % (auto) 0.2 %; Hematocrit (blood only) 41.5 % (42.0-52.0); Hemoglobin 13.8 g/dl (14.0-18.0); Immature Granulocytes # (auto) 0.02 K/uL (0.01-0.20); Immature Granulocytes % (auto) 0.3 %; Lymphocytes # (auto) 1.21 K/uL (1.20-3.40); Mean Corpuscular Hemoglobin 29.6 pg (25.0-34.0); Mean Corpuscular Hgb Conc 33.3 g/dL (32.0-36.0); Mean Corpuscular Volume 89.1 fL (80.0-100.0); Mean Platelet Volume 8.7 fL (9.4-12.4); Monocytes # (auto) 0.27 K/uL (0.11-0.59); Monocytes % (auto) 4.5 %; Neutrophils # (auto) 4.51 K/uL (1.40-6.50); Neutrophils % (auto) 74.5 %; Platelet Count 146 K/uL (130-400); RDW Coefficient of Variation 13.1 % (11.5-14.5); RDW Standard Deviation 41.7 fL (36.4-46.3); Red Blood Count 4.66 M/uL (4.70-6.10); White Blood Count 6.05 K/ul (4.8-10.8)
[2024-02-22 07:44] LABS: Calcium 8.9 mg/dl (8.6-10.3); Creatinine Clr Calc Pharmacy 43.5 ml/min; Magnesium 1.9 mg/dl (1.7-2.4); Potassium 4.3 mmol/L (3.5-5.1)
--- NOTE | 2024-02-22 16:49 | Hospitalist Progress Note ---
Date of Service February 22, 2024 Assessment & Plan (1) Acute hypernatremia: (2) Acute dehydration: (3) Acute renal failure superimposed on stage 3 chronic kidney disease: (4) Acute metabolic encephalopathy: (5) Catheter-associated urinary tract infection: (6) Mixed Alzheimer and vascular dementia: (7) Parkinsonism: (8) History of renal transplant: Plan Patient is an 82-year-old male with PMHx significant for history of hypertension, end-stage renal disease secondary to polycystic kidney disease S/P renal transplant on immunosuppression therapy with tacrolimus and CellCept, DUSTY, recurrent UTIs, dementia, 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 Found to be severely hypernatremic. Hypernatremia Dehydration Acute metabolic encephalopathy secondary to hyponatremia, UTI Likely due to poor oral intake Protein calorie malnutrition BMI 19 CT head: "No acute changes, cerebral atrophy. 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 No acute abnormality noted." Presented with sodium 157, has since down trended to normal limits Treated with D5W Nephrology consulted, appreciate recs. Recommended/stated the following: "...Patient should be encouraged to drink on his own. Consult nutrition as patient most likely needs thickened liquids. From renal standpoint patient can be discharged back to rehab /long term. Renal will sign off please call if additional questions or concerns" Pt with reported cough with any po liquid intake Speech re-consulted for possible video swallow on 02/18/24, appreciate further recs -FORENSICS TEAM DIRECTOR concerned about pt's mental status to complete a video swallow D5W as needed for Na >145, one more bag needed on 02/18 for sodium of 146 Dietitian consulted, appreciate recs -recommending continue with pureed nectar thick diet -assist with meals by feeding pt and cue liquids For encephalopathy, delirium precautions. Frequent reorientation, avoid sedating medications as able. UTI treatment as below. Sodium level remains stable but fluid intake has been limited He will soon be dehydrated and will be back to hospital sooner if discharged to [facility] He remains stable but a little bit down today he has not been cooperating with eating and not been able to fed Will check her labs tomorrow and discussed with the sons about this deterioration Palliative care has been trying to reconnect with the son's Condition remains stable with fluctuating level of responsiveness mostly consisting of weakness lethargy and inability to eat or drink Mentioned that he will be back in a few days if he is transferred to [facility] is in the situation Discussed with the son and he will discuss with his brother for further action from here CAUTI Complicated urinary tract infection H/O urinary retention S/P sherwood H/O recurrent UTIs Blood, urine cultures from admission with NGTD Was previously treated with Cefepime Repeat urine Cx from 02/16 growing Enterococcus species Started on IV Ampicillin before cultures were finalized -Cx noting resistance to IV ampicillin Pt started on IV Linezolid on 02/19/24- can transition to po for discharge Will continue with intravenous linezolid for now and change Sherwood catheter if it is still Denies any fever and/or chills and urine looks clear Will continue current intravenous antibiotic for a total of 5 days Acute kidney injury H/O End-stage renal disease secondary to polycystic kidney disease S/P renal transplant Continue immunosuppression therapy with tacrolimus and CellCept at this time Creatinine 1.9 on admission, has since downtrended to normal limits after fluid hydration Checked tacrolimus levels, was therapeutic Monitor renal function closely Avoid nephrotoxic agents as able Nephrology consulted, advised the following: -encourage po intake Continue to monitor TUNG currently resolved Mild troponin elevation Likely secondary to TUNG Denies any chest pain EKG showed no signs of acute ischemia troponins downtrended Mild hypercalcemia Secondary to dehydration Hold calcium supplements Monitor calcium levels Improved Hypermagnesemia hx of hypomagnesemia Mag of 2.5 on admission, held home supplements IV hydration Currently resolved, supplements restarted Other chronic conditions: Dementia 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 Parkinson's disease Depression Continue home medications as able Diet: DMII, mildly thick, pureed DVT Px:SCDs for now given history of subdural hematoma Dispo: PT/OT recommending SNF, pt is a bed hold at [facility], [facility] d/c once medically stable Not sure if palliative is going to review any more Discussed with primary contact Enrique Marie who will talk to his brother in [place] for further instruction from here He can be discharged to [facility] with the acceptance that he will be back within a few days/few weeks Admission and Anticipated Discharge Date Admission Date: February 10, 2024 Subjective 02/14/2024 The patient was seen and examined in medical floor He has been stable and has been communicating with me today Moving all of his extremities but has generalized weakness Remains pleasantly confused and does not have any acute distress Has been tolerating pured and slippery diet 02/15/2024 Patient was seen and examined in medical floor Patient has been much better and communicating almost normal Denies any significant symptoms for any distress Has been eating more than 50% of his meal Remains pleasantly confused 02/16/2024 Patient was seen and examined in medical floor He has been stable and eating more food than 4 Awaiting reevaluation by the speech therapist for possible barium swallow if needed Remains pleasantly confused with history of dementia Does not have any acute distress 02/17/2024 The patient was seen and examined in medical floor He has been much better for the last 2 or 3 days and has been eating reasonably Does not have any acute distress 02/20/2024 The patient was seen and examined in medical floor He has been a little down today and has not been eating or drinking enough Remains weak and lethargic but does not have any acute distress Not safe to be transferred to [facility] today 02/21/2024 The patient was seen and examined in medical floor He is a little worse today and has not been eating or drinking anything Asking question he denies to have any symptoms Generally weak but has been moving extremities on asking 02/22/2024 The patient was seen and examined in medical floor He looks much better today and has been eating and drinking a little bit Remains pleasantly confused and denies any significant symptoms Review of Systems Review of Systems: Unobtainable due to cognitive status Physical Exam Physical Exam: Lying in bed without any acute distress and looks very lethargic Constitutional: + ill appearing and average body habitus Eyes: PERRL, conjunctivae normal, anicteric sclerae ENMT: external ear and nose normal, oropharynx normal Neck: trachea midline, no thyromegaly Respiratory: no respiratory distress Auscultation: + diminished lung soun ds; no crackles Cardiovascular: Rate/Rhythm: regular rate and regular rhythm; not tachycardic Heart Sounds: normal S1 and normal S2; no murmur Extremities: no edema Gastrointestinal (Abdomen): Inspection/Auscultation: normal bowel sounds; abdomen not distended Percussion/Palpation: abdomen soft; abdomen nontender Neurologic: normal touch/pain/proprioception, moves all extremities and + confused ( pleasantly confused) Lymphatic: no cervical or axillary lymphadenopathy Results & Data Results & Data Vital Signs (Past 12 Hours) Vital Signs Temp Pulse Resp BP Pulse Ox O2 Del Method 02/22/24 07:52 36.7 C 81 18 152/78 H 96 Room Air 02/22/24 07:50 Room Air Laboratory Results Short CBC 02/22/24 Range/Units 06:51 WBC 6.05 (4.8-10.8) K/ul Hgb 13.8 L (14.0-18.0) g/dl Hct 41.5 L (42.0-52.0) % Plt Count 146 (130-400) K/uL BMP 02/22/24 06:51 Sodium 143 Potassium 4.3 Chloride 110 H Carbon Dioxide 28 BUN 23 Creatinine 1.21 Glucose 149 H Calcium 8.9 Medications Administered Current Inpatient Medications Acetaminophen (Acetaminophen 325 Mg Tab) 650 mg PO Q4H PRN PRN Reason: Pain or Fever Stop: 03/11/24 19:00 Bisacodyl (Bisacodyl 10 Mg Supp) 10 mg [place] DAILY PRN PRN Reason: 4th day of no BM in AM Stop: 03/11/24 19:00 Brimonidine Tartrate (Brimonidine Tartrate 0.2% 5ml) 1 drops OPB HS [facility] Stop: 03/11/24 20:59 Last Admin: 02/21/24 21:32 Dose: 1 drops Dextrose (Dextrose 50% 50 Ml Syringe) 25 - 50 ml IV UD PRN; Protocol PRN Reason: Hypoglycemia Protocol Stop: 03/12/24 12:03 Docusate Sodium (Docusate Sodium 100 Mg Cap) 100 mg PO Q24H PRN PRN Reason: constipation on day 2 no BM in the AM Stop: 03/11/24 19:00 Glucagon (Glucagon For Inj 1 Mg Vial) 1 mg SQ UD PRN; Protocol PRN Reason: Hypoglycemia Protocol Stop: 03/12/24 12:03 Glucose (Glucose 40% Gel 15 Gm Tube) 15 - 30 gm PO UD PRN; Protocol PRN Reason: Hypoglycemia Protocol Stop: 03/12/24 12:03 Glucose (Glucose 10 Tab/Tube) 4 - 8 tab PO UD PRN; Protocol PRN Reason: Hypoglycemia Protocol Stop: 03/12/24 12:03 Linezolid (Zyvox) 600 mg in 300 mls @ 300 mls/hr IV Q12H [facility] Stop: 02/29/24 15:14 Last Admin: 02/22/24 16:11 Dose: 300 mls/hr Insulin Aspart (Insulin Aspart Per Unit Charge) 0 units SC ACHS [facility] Stop: 03/13/24 20:59 Last Admin: 02/22/24 12:32 Dose: 2 units Magnesium Oxide (Magnesium Oxide 400 Mg Tab) 400 mg PO HS [facility] Stop: 03/11/24 20:59 Last Admin: 02/21/24 21:33 Dose: 400 mg Memantine (Memantine Hcl 10 Mg Tab) 10 mg PO QAM [facility] Stop: 03/12/24 08:59 Last Admin: 02/22/24 09:28 Dose: 10 mg Miscellaneous (Carbohydrates For Hypoglycemia ) 15 - 30 gm PO UD PRN PRN Reason: Hypoglycemia Protocol Stop: 03/12/24 12:03 Mycophenolate Mofetil (Mycophenolate Susp 200 Mg/1 Ml) 250 mg PO BID [facility] Stop: 03/18/24 20:59 Last Admin: 02/22/24 09:28 Dose: 250 mg Ondansetron HCl (Ondansetron Inj 2 Mg/Ml 2 Ml Vial) 4 mg IV Q6H PRN PRN Reason: Nausea Stop: 03/11/24 19:00 Polyethylene Glycol (Polyethylene (Miralax) 17 Gm Pack) 17 gm PO DAILY PRN PRN Reason: Constipation Stop: 03/11/24 19:00 Sertraline HCl (Sertraline Hcl 50 Mg Tablet) 75 mg PO DAILY [facility] Stop: 03/12/24 08:59 Last Admin: 02/22/24 09:28 Dose: 75 mg Tacrolimus (Tacrolimus 1 Mg Cap) 2 mg PO QAM [facility] Stop: 03/12/24 08:59 Last Admin: 02/22/24 09:29 Dose: 2 mg Tacrolimus (Tacrolimus 1 Mg Cap) 1 mg PO HS [facility] Stop: 03/11/24 20:59 Last Admin: 02/21/24 21:33 Dose: 1 mg
[2024-02-23] MEDS: ACETAMINOPHEN 325 MG TAB PO PRN (05:15)
[2024-02-23 09:59] LABS: Basophils # (auto) 0.02 K/uL (0.00-0.20); Basophils % (auto) 0.4 %; Eosinophils # (auto) 0.01 K/uL (0.00-0.50); Eosinophils % (auto) 0.2 %; Hematocrit (blood only) 39.3 % (42.0-52.0); Hemoglobin 13.3 g/dl (14.0-18.0); Immature Granulocytes # (auto) 0.02 K/uL (0.01-0.20); Immature Granulocytes % (auto) 0.4 %; Lymphocytes # (auto) 1.43 K/uL (1.20-3.40); Lymphocytes % (auto) 29.6 %; Mean Corpuscular Hemoglobin 29.7 pg (25.0-34.0); Mean Corpuscular Hgb Conc 33.8 g/dL (32.0-36.0); Mean Corpuscular Volume 87.7 fL (80.0-100.0); Mean Platelet Volume 8.7 fL (9.4-12.4); Monocytes # (auto) 0.27 K/uL (0.11-0.59); Monocytes % (auto) 5.6 %; Neutrophils # (auto) 3.08 K/uL (1.40-6.50); Neutrophils % (auto) 63.8 %; Platelet Count 132 K/uL (130-400); RDW Coefficient of Variation 12.9 % (11.5-14.5); RDW Standard Deviation 40.9 fL (36.4-46.3); Red Blood Count 4.48 M/uL (4.70-6.10); White Blood Count 4.83 K/ul (4.8-10.8)
[2024-02-23 10:04] LABS: Bilirubin,Total 0.8 mg/dl (0.2-1.0); Calcium 8.5 mg/dl (8.6-10.3); Magnesium 1.8 mg/dl (1.7-2.4); Potassium 4.2 mmol/L (3.5-5.1)
[2024-02-23 10:10] LABS: Albumin Globulin Ratio 1.1 (0.9-2); BUN Creatinine Ratio 19.5 (10-20); Creatinine Clr Calc Pharmacy 42.8 ml/min; Globulin 2.7 gm/dl (2.5-4.0); Phosphorus 2.7 mg/dl (2.5-4.9); Total Protein 5.7 gm/dl (6.0-8.3)
--- NOTE | 2024-02-23 13:35 | Hospitalist Progress Note ---
Date of Service February 23, 2024 Assessment & Plan (1) Acute hypernatremia: (2) Acute dehydration: (3) Acute renal failure superimposed on stage 3 chronic kidney disease: (4) Acute metabolic encephalopathy: (5) Catheter-associated urinary tract infection: (6) Mixed Alzheimer and vascular dementia: (7) Parkinsonism: (8) History of renal transplant: Plan Patient is an 82-year-old male with PMHx significant for history of hypertension, end-stage renal disease secondary to polycystic kidney disease S/P renal transplant on immunosuppression therapy with tacrolimus and CellCept, DUSTY, recurrent UTIs, dementia, 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 Found to be severely hypernatremic. Hypernatremia Dehydration Acute metabolic encephalopathy secondary to hyponatremia, UTI Likely due to poor oral intake Protein calorie malnutrition BMI 19 CT head: "No acute changes, cerebral atrophy. 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 No acute abnormality noted." Presented with sodium 157, has since down trended to normal limits Treated with D5W Nephrology consulted, appreciate recs. Recommended/stated the following: "...Patient should be encouraged to drink on his own. Consult nutrition as patient most likely needs thickened liquids. From renal standpoint patient can be discharged back to rehab /[facility]. Renal will sign off please call if additional questions or concerns" Pt with reported cough with any po liquid intake Speech re-consulted for possible video swallow on 02/18/24, appreciate further recs -FLAT KNITTER HELPER concerned about pt's mental status to complete a video swallow D5W as needed for Na >145, one more bag needed on 02/18 for sodium of 146 Dietitian consulted, appreciate recs -recommending continue with pureed nectar thick diet -assist with meals by feeding pt and cue liquids For encephalopathy, delirium precautions. Frequent reorientation, avoid sedating medications as able. UTI treatment as below. Sodium level remains stable but fluid intake has been limited sodium remains stable, awaiting further recs for discharge from patient's signs CAUTI Complicated urinary tract infection H/O urinary retention S/P sherwood H/O recurrent UTIs Blood, urine cultures from admission with NGTD Was previously treated with Cefepime Repeat urine Cx from 02/16 growing Enterococcus species Started on IV Ampicillin before cultures were finalized -Cx noting resistance to IV ampicillin Pt started on IV Linezolid on 02/19/24- can transition to po for discharge Acute kidney injury H/O End-stage renal disease secondary to polycystic kidney disease S/P renal transplant Continue immunosuppression therapy with tacrolimus and CellCept at this time Creatinine 1.9 on admission, has since downtrended to normal limits after fluid hydration Checked tacrolimus levels, was therapeutic Monitor renal function closely Avoid nephrotoxic agents as able Nephrology consulted, advised the following: -encourage po intake Continue to monitor TUNG currently resolved Mild troponin elevation Likely secondary to TUNG Denies any chest pain EKG showed no signs of acute ischemia troponins downtrended Mild hypercalcemia Secondary to dehydration Hold calcium supplements Monitor calcium levels Improved Hypermagnesemia hx of hypomagnesemia Mag of 2.5 on admission, held home supplements IV hydration Currently resolved, supplements restarted Other chronic conditions: Dementia 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 Parkinson's disease Depression Continue home medications as able Diet: DMII, mildly thick, pureed DVT Px:SCDs for now given history of subdural hematoma Dispo: PT/OT recommending SNF, pt is a bed hold at [facility] d/ once medically stable Admission and Anticipated Discharge Date Admission Date: February 10, 2024 Subjective patient was seen with nursing at bedside feeding him Awake and alert Review of Systems Review of Systems: All systems reviewed & are unremarkable except as noted in Subjective Physical Exam Physical Exam: General: Alert. No acute distress Psych: mood and affect difficult to determine Neuro: alert but not oriented, speech sometimes not intelligible HEENT: NC/AT CV: RRR Resp: no increased effort of breathing Abdomen: Soft, nontender Extremities: waffle boots on lower extremities bilaterally. fistula in left forearm Results & Data Results & Data Vital Signs (Past 12 Hours) Vital Signs Temp Pulse Resp BP Pulse Ox O2 Del Method 02/23/24 07:48 36.8 C 76 18 127/75 98 Room Air 02/23/24 07:40 Room Air
[2024-02-24 06:05] LABS: Basophils # (auto) 0.02 K/uL (0.00-0.20); Basophils % (auto) 0.5 %; Eosinophils # (auto) 0.01 K/uL (0.00-0.50); Eosinophils % (auto) 0.2 %; Hematocrit (blood only) 39.7 % (42.0-52.0); Hemoglobin 13.2 g/dl (14.0-18.0); Immature Granulocytes # (auto) 0.02 K/uL (0.01-0.20); Immature Granulocytes % (auto) 0.5 %; Lymphocytes # (auto) 1.36 K/uL (1.20-3.40); Lymphocytes % (auto) 30.7 %; Mean Corpuscular Hemoglobin 29.2 pg (25.0-34.0); Mean Corpuscular Hgb Conc 33.2 g/dL (32.0-36.0); Mean Corpuscular Volume 87.8 fL (80.0-100.0); Mean Platelet Volume 8.6 fL (9.4-12.4); Monocytes # (auto) 0.25 K/uL (0.11-0.59); Monocytes % (auto) 5.6 %; Neutrophils # (auto) 2.77 K/uL (1.40-6.50); Neutrophils % (auto) 62.5 %; Platelet Count 142 K/uL (130-400); RDW Coefficient of Variation 12.8 % (11.5-14.5); RDW Standard Deviation 40.3 fL (36.4-46.3); Red Blood Count 4.52 M/uL (4.70-6.10); White Blood Count 4.43 K/ul (4.8-10.8)
[2024-02-24 06:18] LABS: Albumin Globulin Ratio 1.2 (0.9-2); Albumin Level 3.1 gm/dl (3.4-5.0); BUN Creatinine Ratio 18.3 (10-20); Bilirubin,Total 0.8 mg/dl (0.2-1.0); Calcium 8.6 mg/dl (8.6-10.3); Creatinine Clr Calc Pharmacy 41.7 ml/min; Globulin 2.6 gm/dl (2.5-4.0); Magnesium 1.8 mg/dl (1.7-2.4); Phosphorus 2.7 mg/dl (2.5-4.9); Potassium 4.6 mmol/L (3.5-5.1); Total Protein 5.7 gm/dl (6.0-8.3)
--- NOTE | 2024-02-24 13:37 | Hospitalist Progress Note ---
Date of Service February 24, 2024 Assessment & Plan (1) Acute hypernatremia: (2) Acute dehydration: (3) Acute renal failure superimposed on stage 3 chronic kidney disease: (4) Acute metabolic encephalopathy: (5) Catheter-associated urinary tract infection: (6) Mixed Alzheimer and vascular dementia: (7) Parkinsonism: (8) History of renal transplant: Plan Patient is an 82-year-old male with PMHx significant for history of hypertension, end-stage renal disease secondary to polycystic kidney disease S/P renal transplant on immunosuppression therapy with tacrolimus and CellCept, DUSTY, recurrent UTIs, dementia, 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 Found to be severely hypernatremic. Hypernatremia Dehydration Acute metabolic encephalopathy secondary to hyponatremia, UTI Likely due to poor oral intake Protein calorie malnutrition BMI 19 CT head: "No acute changes, cerebral atrophy. 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 No acute abnormality noted." Presented with sodium 157, has since down trended to normal limits Treated with D5W Nephrology consulted, appreciate recs. Recommended/stated the following: "...Patient should be encouraged to drink on his own. Consult nutrition as patient most likely needs thickened liquids. From renal standpoint patient can be discharged back to rehab /[facility]. Renal will sign off please call if additional questions or concerns" Pt with reported cough with any po liquid intake Speech re-consulted for possible video swallow on 02/18/24, appreciate further recs -MACHINE PACK ASSEMBLER concerned about pt's mental status to complete a video swallow D5W as needed for Na >145, one more bag needed on 02/18 for sodium of 146 Dietitian consulted, appreciate recs -recommending continue with pureed nectar thick diet -assist with meals by feeding pt and cue liquids For encephalopathy, delirium precautions. Frequent reorientation, avoid sedating medications as able. UTI treatment as below. Sodium level remains stable but fluid intake has been limited sodium remains stable, awaiting further recs for discharge from patient's sons CAUTI Complicated urinary tract infection H/O urinary retention S/P sherwood H/O recurrent UTIs Blood, urine cultures from admission with NGTD Was previously treated with Cefepime Repeat urine Cx from 02/16 growing Enterococcus species Started on IV Ampicillin before cultures were finalized -Cx noting resistance to IV ampicillin Pt started on IV Linezolid on 02/19/24- can transition to po for discharge Acute kidney injury H/O End-stage renal disease secondary to polycystic kidney disease S/P renal transplant Continue immunosuppression therapy with tacrolimus and CellCept at this time Creatinine 1.9 on admission, has since downtrended to normal limits after fluid hydration Checked tacrolimus levels, was therapeutic Monitor renal function closely Avoid nephrotoxic agents as able Nephrology consulted, advised the following: -encourage po intake Continue to monitor TUNG currently resolved Mild troponin elevation Likely secondary to TUNG Denies any chest pain EKG showed no signs of acute ischemia troponins downtrended Mild hypercalcemia Secondary to dehydration Hold calcium supplements Monitor calcium levels Improved Hypermagnesemia hx of hypomagnesemia Mag of 2.5 on admission, held home supplements IV hydration Currently resolved, supplements restarted Other chronic conditions: Dementia 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 Parkinson's disease Depression Continue home medications as able Diet: DMII, mildly thick, pureed DVT Px:SCDs for now given history of subdural hematoma Dispo: PT/OT recommending SNF, pt is a bed hold at [facility] d/ once medically stable Admission and Anticipated Discharge Date Admission Date: February 10, 2024 Subjective patient was seen sitting up in bed resting comfortably call placed to patient's son Perfecto at about 820 p.m. extensive discussion about goals of care, states that they are still discussing but will continue with a full code at this time Discussion of discharge and finalizing POLST form after that time Attempts made to contact patient's POA, his other son were unsuccessful. Will try again tomorrow Review of Systems Review of Systems: All systems reviewed & are unremarkable except as noted in Subjective Physical Exam Physical Exam: General: Alert. No acute distress Psych: mood and affect difficult to determine Neuro: alert but not oriented, speech sometimes not intelligible HEENT: NC/AT CV: RRR Resp: no increased effort of breathing Abdomen: Soft, nontender Extremities: waffle boots on lower extremities bilaterally. fistula in left forearm Results & Data Results & Data Vital Signs (Past 12 Hours) Vital Signs Temp Pulse Resp BP Pulse Ox O2 Del Method 02/24/24 07:40 Room Air 02/24/24 07:07 36.9 C 71 16 167/80 H 93 Room Air
[2024-02-25 07:46] LABS: Estimated Average Glucose 117 mg/dl; Hemoglobin A1C 5.7 % (4.5-5.6)
[2024-02-25 08:08] LABS: Basophils # (auto) 0.02 K/uL (0.00-0.20); Basophils % (auto) 0.5 %; Eosinophils # (auto) 0.01 K/uL (0.00-0.50); Eosinophils % (auto) 0.2 %; Hematocrit (blood only) 39.2 % (42.0-52.0); Hemoglobin 13.2 g/dl (14.0-18.0); Immature Granulocytes # (auto) 0.02 K/uL (0.01-0.20); Immature Granulocytes % (auto) 0.5 %; Lymphocytes # (auto) 1.39 K/uL (1.20-3.40); Lymphocytes % (auto) 31.3 %; Mean Corpuscular Hemoglobin 29.3 pg (25.0-34.0); Mean Corpuscular Hgb Conc 33.7 g/dL (32.0-36.0); Mean Corpuscular Volume 87.1 fL (80.0-100.0); Mean Platelet Volume 8.5 fL (9.4-12.4); Monocytes % (auto) 4.5 %; Platelet Count 142 K/uL (130-400); RDW Coefficient of Variation 13.1 % (11.5-14.5); RDW Standard Deviation 40.3 fL (36.4-46.3); White Blood Count 4.44 K/ul (4.8-10.8)
[2024-02-25 08:30] LABS: Albumin Level 3.1 gm/dl (3.4-5.0); Calcium 8.6 mg/dl (8.6-10.3); Magnesium 1.7 mg/dl (1.7-2.4); Potassium 4.2 mmol/L (3.5-5.1)
[2024-02-25 08:36] LABS: Albumin Globulin Ratio 1.1 (0.9-2); BUN Creatinine Ratio 20.8 (10-20); Globulin 2.7 gm/dl (2.5-4.0); Phosphorus 2.7 mg/dl (2.5-4.9); Total Protein 5.8 gm/dl (6.0-8.3)
[2024-02-25] MEDS: INSULIN ASPART PER UNIT CHARGE SC SCH (08:43)
--- NOTE | 2024-02-25 14:30 | Hospitalist Progress Note ---
Date of Service February 25, 2024 Assessment & Plan (1) Acute hypernatremia: (2) Acute dehydration: (3) Acute renal failure superimposed on stage 3 chronic kidney disease: (4) Acute metabolic encephalopathy: (5) Catheter-associated urinary tract infection: (6) Mixed Alzheimer and vascular dementia: (7) Parkinsonism: (8) History of renal transplant: Plan Patient is an 82-year-old male with PMHx significant for history of hypertension, end-stage renal disease secondary to polycystic kidney disease S/P renal transplant on immunosuppression therapy with tacrolimus and CellCept, DUSTY, recurrent UTIs, dementia, 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 Found to be severely hypernatremic. Hypernatremia Dehydration Acute metabolic encephalopathy secondary to hyponatremia, UTI Likely due to poor oral intake Protein calorie malnutrition BMI 19 CT head: "No acute changes, cerebral atrophy. 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 No acute abnormality noted." Presented with sodium 157, has since down trended to normal limits Treated with D5W Nephrology consulted, appreciate recs. Recommended/stated the following: "...Patient should be encouraged to drink on his own. Consult nutrition as patient most likely needs thickened liquids. From renal standpoint patient can be discharged back to [facility]hab [facility]. Renal will sign off please call if additional questions or concerns" Pt with reported cough with any po liquid intake Speech re-consulted for possible video swallow on 02/18/24, appreciate further recs -DEVELOPMENT ASSISTANT concerned about pt's mental status to complete a video swallow D5W as needed for Na >145, one more bag needed on 02/18 for sodium of 146 Dietitian consulted, appreciate recs -recommending continue with pureed nectar thick diet -assist with meals by feeding pt and cue liquids For encephalopathy, delirium precautions. Frequent reorientation, avoid sedating medications as able. UTI treatment as below. Sodium level remains stable but fluid intake has been limited sodium remains stable, awaiting further recs for discharge from patient's sons 02/25/24- discussion with pt's son Enrique who is his POA, would like more information about a feeding tube to help senior living. GI consult to be placed in the AM. CAUTI Complicated urinary tract infection H/O urinary retention S/P sherwood H/O recurrent UTIs Blood, urine cultures from admission with NGTD Was previously treated with Cefepime Repeat urine Cx from 02/16 growing Enterococcus species Started on IV Ampicillin before cultures were finalized -Cx noting resistance to IV ampicillin Pt started on IV Linezolid on 02/19/24- can transition to po for discharge Acute kidney injury H/O End-stage renal disease secondary to polycystic kidney disease S/P renal transplant Continue immunosuppression therapy with tacrolimus and CellCept at this time Creatinine 1.9 on admission, has since downtrended to normal limits after fluid hydration Checked tacrolimus levels, was therapeutic Monitor renal function closely Avoid nephrotoxic agents as able Nephrology consulted, advised the following: -encourage po intake Continue to monitor TUNG currently resolved Mild troponin elevation Likely secondary to TUNG Denies any chest pain EKG showed no signs of acute ischemia troponins downtrended Mild hypercalcemia Secondary to dehydration Hold calcium supplements Monitor calcium levels Improved Hypermagnesemia hx of hypomagnesemia Mag of 2.5 on admission, held home supplements IV hydration Currently resolved, supplements restarted Other chronic conditions: Dementia 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 Parkinson's disease Depression Continue home medications as able Diet: DMII, mildly thick, pureed DVT Px:SCDs for now given history of subdural hematoma Dispo: PT/OT recommending SNF, pt is a bed hold at [facility] d/c once medically stable Admission and Anticipated Discharge Date Admission Date: February 10, 2024 Subjective patient was seen with nursing at bedside Sleepy and drowsy, not as responsive today Call placed to son Enrique had about 6:40 PM, extensive discussion about next steps and plans. Expresses desire for more information about tube feeds, Will consult GI in the morning for further evaluation and recommendations Review of Systems Review of Systems: All systems reviewed & are unremarkable except as noted in Subjective Physical Exam Physical Exam: General: Alert. No acute distress Psych: mood and affect difficult to determine Neuro: alert but not oriented, speech sometimes not intelligible HEENT: NC/AT CV: RRR Resp: no increased effort of breathing Abdomen: Soft, nontender Extremities: waffle boots on lower extremities bilaterally. fistula in left forearm Results & Data Results & Data Vital Signs (Past 12 Hours) Vital Signs Temp Pulse Resp BP Pulse Ox O2 Del Method 02/25/24 07:31 36.8 C 80 16 110/70 94 Room Air 02/25/24 07:29 Room Air
--- NOTE | 2024-02-26 09:49 | Communication Note ---
Date of Service: February 26, 2024 GI has been consulted for PEG tube discussion for this patient with advanced age & advance dementia. We will hold off on formal conversation/consult until patient & family have met with palliative care first to establish firm goals of care and family conversation regarding advanced dementia planning/prognosis. We will follow peripherally until this conversation occurs, then will provide a formal consultation.
[2024-02-26 10:16] LABS: Basophils # (auto) 0.02 K/uL (0.00-0.20); Basophils % (auto) 0.3 %; Eosinophils # (auto) 0.02 K/uL (0.00-0.50); Eosinophils % (auto) 0.3 %; Hematocrit (blood only) 39.6 % (42.0-52.0); Hemoglobin 13.1 g/dl (14.0-18.0); Immature Granulocytes # (auto) 0.02 K/uL (0.01-0.20); Immature Granulocytes % (auto) 0.3 %; Lymphocytes # (auto) 1.33 K/uL (1.20-3.40); Lymphocytes % (auto) 22.6 %; Mean Corpuscular Hgb Conc 33.1 g/dL (32.0-36.0); Mean Corpuscular Volume 87.6 fL (80.0-100.0); Mean Platelet Volume 8.6 fL (9.4-12.4); Monocytes # (auto) 0.26 K/uL (0.11-0.59); Monocytes % (auto) 4.4 %; Neutrophils # (auto) 4.24 K/uL (1.40-6.50); Neutrophils % (auto) 72.1 %; Platelet Count 124 K/uL (130-400); RDW Coefficient of Variation 12.8 % (11.5-14.5); RDW Standard Deviation 40.3 fL (36.4-46.3); Red Blood Count 4.52 M/uL (4.70-6.10); White Blood Count 5.89 K/ul (4.8-10.8)
--- NOTE | 2024-02-26 10:19 | Gastrointestinal Consultation ---
Date of Consultation February 26, 2024 Assessment & Plan (1) Discussion about advance care planning held with family member: (2) Decreased oral intake: Plan Discussed role of PEG tube/artificial feeding modalities with son Enrique. Discussed the method of placement, discussed that once placed a PEG must be in place for 6-8 weeks minimum before removing it, discussed the increased risks in patients with dementia and over age 75. Discussed that it does not prevent aspiration and has not meaningfully been demonstrated to prolong life expectancy. Discussed infection risk, bleeding & perforation risk, risk of buried bumper syndrome, and discussed the risk of patient self-removing with agitation/dementia. Patient's son to discuss this further with family in order to make long-term decisions but there are no concrete plans to move forward with a PEG at this time. Supervising Physician Co-Signing Physician Notes 83-year-old gentleman with dementia. Patient for palliative long-term care. There was a potential consideration of PEG placement. I think the family have decided against this which is appropriate decision. Agree with nurse practitioners assessment reconsult as needed if family decision changes History of Present Illness Reason for Consultation: Feeding tube concerns, poor nutrition Attending Physician: Anny Woodard MD History of Present Illness Patient is an 83 yo male with extensive PMH as listed who is hospitalized with multiple medical issues including a UTI with indwelling sherwood and advanced dementia. History provided to me by the patient's son, Enrique. They note that they have been trying to decide on goals of care for their father and needed more information regarding ideal candidacy for PEG tubes, long-term use of PEG tubes, role of PEG tubes in dementia, etc. The son notes that they are unsure of their plans moving forward. Allergies Allergy/AdvReac Type Severity Reaction Status Date / Time lisinopril AdvReac Intermediate Cough Verified 12/04/23 10:10 Home Medications Medication Instructions Recorded Confirmed Type brimonidine 0.2 % eye drops 1 drp OPB HS #15 mL 12/01/22 02/10/24 Rx magnesium oxide 400 mg PO HS 12/02/22 02/10/24 History amlodipine 5 mg tablet 5 mg PO DAILY #90 tabs 01/09/23 02/10/24 Rx methenamine hippurate 1 gram tablet 1 g PO BID #0 tabs 02/06/23 02/10/24 Rx mycophenolate mofetil 250 mg 250 mg PO BID #60 ea 02/10/23 02/10/24 Rx capsule sertraline 50 mg tablet 75 mg PO DAILY 04/17/23 02/10/24 History acetaminophen 325 mg tablet 650 mg PO Q4 PRN Fever Or Pain 05/21/23 02/10/24 History docusate sodium 100 mg capsule 100 mg PO Q24H PRN constipation on 05/21/23 02/10/24 History (Colace) day 2 no BM in the AM tacrolimus 1 mg capsule, 1 mg PO HS 05/21/23 02/10/24 History immediate-release tacrolimus 1 mg capsule, 2 mg PO QAM 05/21/23 02/10/24 History immediate-release calcium carbonate (Oyster Shell 500 mg PO BID 06/20/23 02/10/24 History Calcium) bisacodyl 10 mg rectal suppository 10 mg OR DAILY PRN 4th day of no 08/09/23 02/10/24 History (Dulcolax (bisacodyl)) BM in AM polyethylene glycol 3350 17 17 g PO DAILY PRN No BM for 3 days 08/09/23 02/10/24 History gram/dose oral powder memantine 10 mg tablet 10 mg PO QAM 10/31/23 02/10/24 History acetaminophen 650 mg rectal 650 mg OR Q4H PRN Fever Or Pain 02/10/24 02/10/24 History suppository amoxicillin 875 mg-potassium 1 tab PO Q12H 02/10/24 02/10/24 History clavulanate 125 mg tablet Patient History Medical History Encephalopathy Hypertension Chronic indwelling Sherwood catheter Mild cognitive impairment Pre-syncope Hx of basal cell carcinoma AV fistula LEFT ARM>HAD DIALYSIS BEFORE KIDNEY *2006 [place] FOR 5 MONTHS Hx of squamous cell carcinoma Unintentional weight loss Hearing deficit Obstructive sleep apnea unable to tolerate cpap machine. Surgical History Renal transplant recipient History of cataract surgery RT/LEFT H/O right inguinal hernia repair S/P kidney [place] [facility] [place]/t polycystic kidney History of colonoscopy Status post Mohs surgery H/O transurethral resection of prostate Family History Grandfather (Maternal) Cardiac disorder Grandmother (Paternal) Cardiac disorder Grandfather (Paternal) Cardiac disorder Mother Cardiac disorder Hypertension Grandmother (Maternal) Diabetes Brother Hypertension Sister Renal transplant, status post Hypertension Other No family history of adverse response to anesthesia Social History Smoking Status: Former smoker Tobacco Type: Cigarettes Second Hand Exposure: No; Do You Dip or Chew Tobacco: No; Tobacco Cessation Education Requested by Patient: No Hx Alcohol Use: No Hx Substance Use: No Preferred Language: Romanian Communication Ability: Impaired Visual Impairment: No Limitations Hearing Ability: Normal Food Editor Required: No Beliefs That Will Affect Care: None marital status: Current Living Situation: [facility] current occupational status: retired How many Children do You have: 2 Other Information That Helps Us Care for You: No Feels Safe at Home: Yes Safety Concerns: Feels Safe At This Time Diet: regular during the past year weight has: decreased > 10 lbs Dental Care, Regularly: No Seatbelt Use: always Sunscreen Use: Yes Assistive Devices: Glasses Review of Systems Review of Systems: Unobtainable due to cognitive status Physical Exam Constitutional: no acute distress Gastrointestinal (Abdomen): normal bowel sounds, soft, nontender, no hepatosplenomegaly Results & Data Vital Signs (Past 12 Hours) Vital Signs Temp Pulse Pulse Resp BP Pulse Ox O2 Del Method 02/26/24 09:27 Room Air 02/26/24 06:57 37.0 C 65 16 116/51 L 98 Room Air 02/25/24 22:52 Room Air 02/25/24 22:22 36.5 C 78 18 129/85 97 Room Air PG Care Time/CCT Total # of Minutes Spent Total Time Spent with Patient: Total time spent is greater than 50% in coordination of care (as documented) at patient's floor/unit and/or counseling patient: Coding Level of Care Code 44166 INT INP/OBS CARE 3/75MIN Diagnoses Discussion about advance care planning held with family member Z71.0 Decreased oral intake R63.8
[2024-02-26 10:35] LABS: Albumin Globulin Ratio 1.2 (0.9-2); Albumin Level 3.1 gm/dl (3.4-5.0); BUN Creatinine Ratio 22.7 (10-20); Calcium 8.7 mg/dl (8.6-10.3); Creatinine Clr Calc Pharmacy 44.1 ml/min; Globulin 2.6 gm/dl (2.5-4.0); Magnesium 1.8 mg/dl (1.7-2.4); Phosphorus 2.5 mg/dl (2.5-4.9); Potassium 4.2 mmol/L (3.5-5.1); Total Protein 5.7 gm/dl (6.0-8.3)
--- NOTE | 2024-02-26 16:39 | Hospitalist Progress Note ---
Date of Service February 26, 2024 Assessment & Plan (1) Acute hypernatremia: (2) Acute dehydration: (3) Acute renal failure superimposed on stage 3 chronic kidney disease: (4) Acute metabolic encephalopathy: (5) Catheter-associated urinary tract infection: (6) Mixed Alzheimer and vascular dementia: (7) Parkinsonism: (8) History of renal transplant: Plan Patient is an 82-year-old male with PMHx significant for history of hypertension, end-stage renal disease secondary to polycystic kidney disease S/P renal transplant on immunosuppression therapy with tacrolimus and CellCept, DUSTY, recurrent UTIs, dementia, 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 Found to be severely hypernatremic. Hypernatremia Dehydration Acute metabolic encephalopathy secondary to hyponatremia, UTI Likely due to poor oral intake Protein calorie malnutrition BMI 19 CT head: "No acute changes, cerebral atrophy. 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 No acute abnormality noted." Presented with sodium 157, has since down trended to normal limits Treated with D5W Nephrology consulted, appreciate recs. Recommended/stated the following: "...Patient should be encouraged to drink on his own. Consult nutrition as patient most likely needs thickened liquids. From renal standpoint patient can be discharged back to rehab /fdc. Renal will sign off please call if additional questions or concerns" Pt with reported cough with any po liquid intake Speech re-consulted for possible video swallow on 02/18/24, appreciate further recs -SALES AND SERVICE TECHNICIAN concerned about pt's mental status to complete a video swallow D5W as needed for Na >145, one more bag needed on 02/18 for sodium of 146 Dietitian consulted, appreciate recs -recommending continue with pureed nectar thick diet -assist with meals by feeding pt and cue liquids For encephalopathy, delirium precautions. Frequent reorientation, avoid sedating medications as able. UTI treatment as below. Sodium level remains stable but fluid intake has been limited sodium remains stable, awaiting further recs for discharge from patient's sons 02/25/24- discussion with pt's son Enrique who is his POA, would like more information about a feeding tube to help alf. GI consult to be placed in the AM. 02/26/24- GI consult placed, GI spoke to pt's son Enrique. Per GI family leaning away from feeding tube at this time. Per Palliative, family meeting tomorrow 02/26 to further solidify plan for care CAUTI Complicated urinary tract infection H/O urinary retention S/P sherwood H/O recurrent UTIs Blood, urine cultures from admission with NGTD Was previously treated with Cefepime Repeat urine Cx from 02/16 growing Enterococcus species Started on IV Ampicillin before cultures were finalized -Cx noting resistance to IV ampicillin Pt started on IV Linezolid on 02/19/24- can transition to po for discharge Acute kidney injury H/O End-stage renal disease secondary to polycystic kidney disease S/P renal transplant Continue immunosuppression therapy with tacrolimus and CellCept at this time Creatinine 1.9 on admission, has since downtrended to normal limits after fluid hydration Checked tacrolimus levels, was therapeutic Monitor renal function closely Avoid nephrotoxic agents as able Nephrology consulted, advised the following: -encourage po intake Continue to monitor TUNG currently resolved Mild troponin elevation Likely secondary to TUNG Denies any chest pain EKG showed no signs of acute ischemia troponins downtrended Mild hypercalcemia Secondary to dehydration Hold calcium supplements Monitor calcium levels Improved Hypermagnesemia hx of hypomagnesemia Mag of 2.5 on admission, held home supplements IV hydration Currently resolved, supplements restarted Other chronic conditions: Dementia 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 Parkinson's disease Depression Continue home medications as able Diet: DMII, mildly thick, pureed DVT Px:SCDs for now given history of subdural hematoma Dispo: PT/OT recommending SNF, pt is a bed hold at [facility] d/ once medically stable Admission and Anticipated Discharge Date Admission Date: February 10, 2024 Subjective patient was seen laying in bed, opens eyes to verbal stimuli Review of Systems Review of Systems: All systems reviewed & are unremarkable except as noted in Subjective Physical Exam Physical Exam: General: Alert. No acute distress Psych: mood and affect difficult to determine Neuro: alert but not oriented, speech sometimes not intelligible HEENT: NC/AT CV: RRR Resp: no increased effort of breathing Abdomen: Soft, nontender Extremities: waffle boots on lower extremities bilaterally. fistula in left forearm Results & Data Results & Data Vital Signs (Past 12 Hours) Vital Signs Temp Pulse Resp BP Pulse Ox O2 Del Method 02/26/24 14:41 37.0 C 70 16 111/79 96 Room Air 02/26/24 09:27 Room Air 02/26/24 06:57 37.0 C 65 16 116/51 L 98 Room Air
[2024-02-27 08:58] LABS: Hematocrit (blood only) 38.2 % (42.0-52.0); Hemoglobin 12.7 g/dl (14.0-18.0); Mean Corpuscular Hemoglobin 29.5 pg (25.0-34.0); Mean Corpuscular Hgb Conc 33.2 g/dL (32.0-36.0); Mean Corpuscular Volume 88.6 fL (80.0-100.0); Mean Platelet Volume 8.6 fL (9.4-12.4); Platelet Count 104 K/uL (130-400); RDW Coefficient of Variation 12.7 % (11.5-14.5); RDW Standard Deviation 41.1 fL (36.4-46.3); Red Blood Count 4.31 M/uL (4.70-6.10); White Blood Count 5.53 K/ul (4.8-10.8)
[2024-02-27 09:10] LABS: Albumin Globulin Ratio 1.2 (0.9-2); Bilirubin,Total 1.2 mg/dl (0.2-1.0); Calcium 8.5 mg/dl (8.6-10.3); Creatinine Clr Calc Pharmacy 45.9 ml/min; Globulin 2.5 gm/dl (2.5-4.0); Magnesium 1.7 mg/dl (1.7-2.4); Phosphorus 2.6 mg/dl (2.5-4.9); Total Protein 5.5 gm/dl (6.0-8.3)
--- NOTE | 2024-02-27 11:12 | Communication Note ---
Date of Service: February 27, 2024 [facility] Med Brief Note a POLST was completed for Kevin Marie with his son and mPORaza Marie. POLST elections: DNR/DNI, allow limited trial of interventions if declining but no life support, use Abtx for comfort and to prolong life/family will decide when to stop and no RED/tube feedings. Original POLST is with son Enrique, copies to be made for chart. Code changed to DNR/DNI Enrique will ask for hospice at SNF when he and his brother are ready. We discussed adding a private pay breaker oiler to pt care to help improve and encourage oral intake as Enrique worries the alf will not be as attentive to hand feeds and encouraging PO. TS 55min face to face for this ACP meeting Thank you for allowing us to participate in the ongoing care of this patient. Please page with any additional concerns. Casa Bauer DNP Director, Palliative Medicine
--- NOTE | 2024-02-27 11:15 | Palliative Family Discussion ---
Date of Service February 27, 2024 Patient Directed Conference Time of Meetin-1050am Participants: Pennie Bauer DNP [facility] Patient Support System: aishwarya Nunez Other Healthcare Provider Participation: None Meeting Location: [facility], third floor [facility] Advanced Directive available: NO The patient's surrogate medical decision maker participated: yes Enrique is Liat This ACP family meeting was held for TRESSA RODRIGUEZ. This meeting was necessary for determining the appropriate course of treatment. Topics of Discussion Topics of Discussion: A POLST was completed for Tressa Rodriguez with his son and mPOA Enrique Rodriguez. POLST elections: DNR/DNI, allow limited trial of interventions if declining but no life support, use Abtx for comfort and to prolong life/family will decide when to stop and no RED/tube feedings. Original POLST is with aishwarya Nunez, copies to be made for chart. Code changed to DNR/DNI Enrique will ask for hospice at SNF when he and his brother are ready. We discussed adding a private pay yarn weigher to pt care to help improve and encourage oral intake as Enrique worries the prison will not be as attentive to hand feeds and encouraging PO. TS 55min face to face for this ACP meeting Thank you for allowing us to participate in the ongoing care of this patient. Please page with any additional concerns. Casa Bauer DNP Director, Palliative Medicine Other Content of Meetin. Opportunity given for participants to speak and ask questions. 2. Participants were assured of attention to patient comfort. 3. Reassurance provided. End of life fruit express agent service through [employer] support offered, contact information provided to Enrique for Rev a[employer], he will call if interested. 4. Support was provided for informed, good-christiana decisions. 5. Emotions expressed by family were acknowledged and addressed. 6. Follow-up Outpatient: clinic follow up offered, Enrique will call if needed Time Involved in Meeting: I spent 70 minutes overall addressing this case: 5 in medical data review/discussion with referring provider(s) and/or preparation for the visit 5 in direct interaction with the patient 50 Advance Care Planning/Goals of Care discussions as detailed above in note (must be >16min) 5 in subsequent review and synthesis of assessment and plan 5 in communicating with other providers regarding the patient's case: [primary team
--- NOTE | 2024-02-27 11:29 | Fluoroscopy Report ---
MODIFIED BARIUM SWALLOW CLINICAL HISTORY: r/o aspiration COMPARISON STUDY: None. FLUOROSCOPY TIME: 1.46 minutes. Ka,r: 4.36 mGy TECHNIQUE: A modified barium swallow was performed in conjunction with Speech Pathology. The patient ingested varying consistencies of barium containing material. Video fluoroscopy was performed. FINDINGS: There were multiple episodes of silent tracheal aspiration with thin liquids. Epiglottic in version and the right elevation were diminished. With sips of nectar thick liquids, silent tracheal a spiration was also noted. Residuals within the piriform sinuses and vallecula were present. No aspira tion was identified with pudding consistency however significant residuals were noted. IMPRESSION: 1. Multiple episodes of silent tracheal aspiration with thin liquids and nectar thick liquids. 2. No aspiration with pudding consistency. However, moderate residuals within the vallecula and pirif orm sinuses. 3. Full recommendations by Speech pathology to follow. ACT 112: Negative or not required by law. Electronically signed by: Matias Patten M.D. 02/27/2024 11:26 AM
--- NOTE | 2024-02-27 15:19 | Hospitalist Progress Note ---
Date of Service February 27, 2024 Assessment & Plan (1) Acute hypernatremia: (2) Acute dehydration: (3) Acute renal failure superimposed on stage 3 chronic kidney disease: (4) Acute metabolic encephalopathy: (5) Catheter-associated urinary tract infection: (6) Mixed Alzheimer and vascular dementia: (7) Parkinsonism: (8) History of renal transplant: Plan Patient is an 82-year-old male with PMHx significant for history of hypertension, end-stage renal disease secondary to polycystic kidney disease S/P renal transplant on immunosuppression therapy with tacrolimus and CellCept, DUSTY, recurrent UTIs, dementia, 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 Found to be severely hypernatremic. Hypernatremia Dehydration Acute metabolic encephalopathy secondary to hyponatremia, UTI Likely due to poor oral intake Protein calorie malnutrition BMI 19 CT head: "No acute changes, cerebral atrophy. 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 No acute abnormality noted." Presented with sodium 157, has since down trended to normal limits Treated with D5W Nephrology consulted, appreciate recs. Recommended/stated the following: "...Patient should be encouraged to drink on his own. Consult nutrition as patient most likely needs thickened liquids. From renal standpoint patient can be discharged back to rehab /fpc. Renal will sign off please call if additional questions or concerns" Pt with reported cough with any po liquid intake Speech re-consulted for possible video swallow on 02/18/24, appreciate further recs -CORRECTIONAL SUPERVISING COOK concerned about pt's mental status to complete a video swallow D5W as needed for Na >145, one more bag needed on 02/18 for sodium of 146 Dietitian consulted, appreciate recs -recommending continue with pureed nectar thick diet -assist with meals by feeding pt and cue liquids For encephalopathy, delirium precautions. Frequent reorientation, avoid sedating medications as able. UTI treatment as below. Sodium level remains stable but fluid intake has been limited sodium remains stable, awaiting further recs for discharge from patient's sons 02/25/24- discussion with pt's son Enrique who is his david HERRERA m,mark like more information about a feeding tube to help fci. GI consult to be placed in the AM. 02/26/24- GI consult placed, GI spoke to pt's son Enrique. Per GI family leaning away from feeding tube at this time. Per Palliative, family meeting tomorrow 02/26 to further solidify plan for care 02/27/24- stable, pt's son Enrique had meeting with palliative care-conditional code, POLST form completed. No feeding tube. Pt stable for discharge CAUTI Complicated urinary tract infection H/O urinary retention S/P sherwood H/O recurrent UTIs Blood, urine cultures from admission with NGTD Was previously treated with Cefepime Repeat urine Cx from 02/16 growing Enterococcus species Started on IV Ampicillin before cultures were finalized -Cx noting resistance to IV ampicillin Pt started on IV Linezolid on 02/19/24, completed 7 days of rx. Acute kidney injury H/O End-stage renal disease secondary to polycystic kidney disease S/P renal transplant Continue immunosuppression therapy with tacrolimus and CellCept at this time Creatinine 1.9 on admission, has since downtrended to normal limits after fluid hydration Checked tacrolimus levels, was therapeutic Monitor renal function closely Avoid nephrotoxic agents as able Nephrology consulted, advised the following: -encourage po intake Continue to monitor TUNG currently resolved Mild troponin elevation Likely secondary to TUNG Denies any chest pain EKG showed no signs of acute ischemia troponins downtrended Mild hypercalcemia Secondary to dehydration Hold calcium supplements Monitor calcium levels Improved Hypermagnesemia hx of hypomagnesemia Mag of 2.5 on admission, held home supplements IV hydration Currently resolved, supplements restarted Other chronic conditions: Dementia 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 Parkinson's disease Depression Continue home medications as able Diet: DMII, mildly thick, pureed DVT Px:SCDs for now given history of subdural hematoma Dispo: PT/OT recommending SNF, pt [facility]/c once medically stable Admission and Anticipated Discharge Date Admission Date: February 10, 2024 Subjective patient was seen more alert today sitting up in bed call placed to patient's son and he was agreeable to discharge in the a.m. if it can be set up to Teresa Review of Systems Review of Systems: All systems reviewed & are unremarkable except as noted in Subjective Physical Exam Physical Exam: General: Alert. No acute distress Psych: mood and affect difficult to determine Neuro: alert but not oriented, speech sometimes not intelligible HEENT: NC/AT CV: RRR Resp: no increased effort of breathing Abdomen: Soft, nontender Extremities: waffle boots on lower extremities bilaterally. fistula in left forearm Results & Data Results & Data Vital Signs (Past 12 Hours) Vital Signs Temp Pulse Resp BP Pulse Ox O2 Del Method 02/27/24 09:00 Room Air 02/27/24 06:51 36.6 C 68 16 129/72 99 Room Air
[2024-02-28 07:52] VITALS: RESP 16; TEMP 98.6
[2024-02-28 08:43] LABS: Hematocrit (blood only) 38.1 % (42.0-52.0); Hemoglobin 12.7 g/dl (14.0-18.0); Mean Corpuscular Hgb Conc 33.3 g/dL (32.0-36.0); RDW Coefficient of Variation 12.7 % (11.5-14.5); Red Blood Count 4.38 M/uL (4.70-6.10); White Blood Count 5.32 K/ul (4.8-10.8)
[2024-02-28 08:56] LABS: Albumin Globulin Ratio 1.2 (0.9-2); BUN Creatinine Ratio 19.8 (10-20); Bilirubin,Total 1.1 mg/dl (0.2-1.0); Calcium 8.3 mg/dl (8.6-10.3); Creatinine Clr Calc Pharmacy 46.7 ml/min; Globulin 2.5 gm/dl (2.5-4.0); Magnesium 1.6 mg/dl (1.7-2.4); Phosphorus 2.7 mg/dl (2.5-4.9); Potassium 4.7 mmol/L (3.5-5.1); Total Protein 5.5 gm/dl (6.0-8.3)
[2024-02-28 08:57] LABS: Mean Platelet Volume 8.5 fL (9.4-12.4); Platelet Count 99 K/uL (130-400); Platelet Estimate Decreased (Normal)
--- NOTE | 2024-02-28 12:41 | Discharge Summary ---
Discharge Summary Date of Service February 28, 2024 Principal Dx & Hospital Course #1 = Principal Diagnosis (1) Acute hypernatremia: (2) Acute dehydration: (3) Acute renal failure superimposed on stage 3 chronic kidney disease: (4) Acute metabolic encephalopathy: (5) Catheter-associated urinary tract infection: (6) Mixed Alzheimer and vascular dementia: (7) Parkinsonism: (8) History of renal transplant: Plan Mr. 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 Found to be severely hypernatremic. Patient was treated with D5W and evaluated by nephrology. Patient also noted to have UTI and treated with linezolid for enterococcus. Patient with notable failiure to thrive--requiring 1:1 feeding assistance. #Hypernatremia iso FTT #Dehydration #Acute metabolic encephalopathy secondary to hyponatremia, UTI Protein calorie malnutrition BMI 19 CT head: "No acute changes, cerebral atrophy. 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 No acute abnormality noted." Presented with sodium 157, has since down trended to normal limits Nephrology consulted:recommended drinking thickened fluids Dietitian consulted, appreciate recs: pureed nectar thick diet, assist with meals by feeding pt and cue liquids For encephalopathy, delirium precautions. Frequent reorientation, avoid sedating medications as able. UTI treatment as below. GI consult placed,avoid feeding tube. Palliative consulted: DNR/DNI and POLST completed, #CAUTI # urinary retention S/P sherwood # recurrent UTIs Blood, urine cultures from admission with NGTD Was previously treated with Cefepime Repeat urine Cx from 02/16 growing Enterococcus species Started on IV Ampicillin before cultures were finalized -Cx noting resistance to IV ampicillin Pt started on IV Linezolid on 02/19/24, completed 7 days of rx. #Acute kidney injury #H/O End-stage renal disease secondary to polycystic kidney disease S/P renal transplant Continue immunosuppression therapy with tacrolimus and CellCept at this time Creatinine 1.9 on admission, has since downtrended to normal limits after fluid hydration continue po intake #Mild troponin elevation Likely secondary to TUNG Denies any chest pain EKG showed no signs of acute ischemia troponins downtrended #Mild hypercalcemia Secondary to dehydration Hold calcium supplements Monitor calcium levels Improved #Hypermagnesemia #hx of hypomagnesemia Mag of 2.5 on admission, held home supplements IV hydration Currently resolved, supplements restarted Other chronic conditions: Dementia 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 Parkinson's disease Depression Continue home medications as able Notes For Next Care Provider Dietitian consulted, appreciate recs: pureed, nectar thick liquid diet, assist with meals by feeding pt and cue liquids Medication Changes From Visit NA Admission HPI Per Admitting Provider Patient is an 82-year-old male with history of hypertension, end-stage renal disease secondary to polycystic kidney disease S/P renal transplant on immunosuppression therapy with tacrolimus and CellCept, DUSTY CPAP noncompliance, recurrent UTIs, dementia, 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 Patient is mostly nonverbal but nods to questions currently. Most of the history is obtained from ER staff, old records. No family at bedside during my encounter. He has been currently treated for complicated urinary tract infection started with ciprofloxacin as outpatient and later changed to Augmentin about 4 days ago. No records from [facility] currently available. Patient denies any chest pain, dyspnea, nausea, vomiting, abdominal pain, dizziness. His intake has been very poor. He clinically looks very dehydrated. No known history of fever, chills. Came in with Sherwood catheter. Patient has history of multiple UTIs in the past. He is currently alert, awake and oriented to person and follows simple commands. Admission Exam Per Admitting Provider Physical Exam: Vitals signs as noted above General Appearance: Thin, frail, elderly, no apparent distress Head: normocephalic, Atraumatic, poor dentition, oral mucosa dry Eyes: normal inspection, EOMI Neck: supple, Trachea midline Respiratory/Chest: Normal breath sounds, CTA, No accessory muscle use Cardiovascular: S1, S2, No murmur Abdomen/GI:Soft, Non tender, Bowel sounds present : + Sherwood Extremities/Musculoskeletal:normal inspection, no edema Neurologic/Psych:AAOX1, follows simple commands, unable to perform complete neurological exam Skin: normal color, warm Discharge Exam Constitutional thin frail minimally conversational gentleman, chronically ill appearing Respiratory normal respiratory effort, lungs clear to auscultation Cardiovascular RRR, no murmur, no edema Gastrointestinal (Abdomen) normal bowel sounds, soft, nontender, no hepatosplenomegaly Updated Medication List Medication Instructions Recorded Confirmed Type brimonidine 0.2 % eye drops 1 drp OPB HS #15 mL 12/01/22 02/10/24 Rx magnesium oxide 400 mg PO HS 12/02/22 02/10/24 History methenamine hippurate 1 gram tablet 1 g PO BID #0 tabs 02/06/23 02/10/24 Rx mycophenolate mofetil 250 mg 250 mg PO BID #60 ea 02/10/23 02/10/24 Rx capsule sertraline 50 mg tablet 75 mg PO DAILY 04/17/23 02/10/24 History acetaminophen 325 mg tablet 650 mg PO Q4 PRN Fever Or Pain 05/21/23 02/10/24 History docusate sodium 100 mg capsule 100 mg PO Q24H PRN constipation on 05/21/23 02/10/24 History (Colace) day 2 no BM in the AM tacrolimus 1 mg capsule, 1 mg PO HS 05/21/23 02/10/24 History immediate-release tacrolimus 1 mg capsule, 2 mg PO QAM 05/21/23 02/10/24 History immediate-release calcium carbonate (Oyster Shell 500 mg PO BID 06/20/23 02/10/24 History Calcium) bisacodyl 10 mg rectal suppository 10 mg NJ DAILY PRN 4th day of no 08/09/23 02/10/24 History (Dulcolax (bisacodyl)) BM in AM polyethylene glycol 3350 17 17 g PO DAILY PRN No BM for 3 days 08/09/23 02/10/24 History gram/dose oral powder memantine 10 mg tablet 10 mg PO QAM 10/31/23 02/10/24 History acetaminophen 650 mg rectal 650 mg NJ Q4H PRN Fever Or Pain 02/10/24 02/10/24 History suppository Hospital Stay Data Consultations 02/10/24 15:39 ED Decision to Admit Stat 02/10/24 19:01 Consult Nephrology Routine 02/13/24 12:03 Consult Palliative Care Routine 02/26/24 09:11 Consult Gastroenterology Routine Diagnostic Imagining Performed 02/10/24 14:07 CT head/brain wo con Stat 02/27/24 10:00 FL video swallow Routine Pending Results Patient Have Any Pending Studies at Discharge: No Discharge Instructions Given to Patient (Per Discharging Provider) You were admitted for altered mental status, you were noted to be dehydrated and with a urine infection You completed course of antibiotics for urine infection You were seen by business communications instructor and recommended to continue with pureed food and nectar thick fluids. You need notable help with eating, including 1:1 assistance with feeds. You require frequent orientation due to confusion It is recommended to try to drink 2 liters of fluid a day, with encouragement from staff and assistance Total Time Total Time Spent Total Time Spent (In Minutes): 45
[2024-02-28 14:43] VITALS: BP 113/60; PULSE 77; O2SAT 94
== END 2024-02-28 15:17 | DRG 698 ==
LOC: ED 13:28 → SUATTDRO 15:47 → 4W 15:47 → 3N 02-11 15:37